=== PATIENT | female | born 1955 | race Caucasian/White ===

== ENCOUNTER → 2016-09-14 | Outpatient (CLI) | payer OTHER ==
[2016-09-14 12:04] LABS: HEMATOCRIT 34.3 % (36.0-47.0); HEMOGLOBIN 11.6 g/dL (12.0-15.5); HGB HCT DIFFERENCE 0.5; MEAN CORPUSCULAR HGB CONC 33.8 g/dL (32.0-36.0); MEAN CORPUSCULAR VOLUME 89 fl (80-97); RED BLOOD COUNT 3.86 10^6/uL (3.72-5.28); RED CELL DISTRIBUTION WIDTH 13.7 % (11.5-14.0); WHITE BLOOD COUNT 4.9 10^3/uL (4.0-10.5)
[2016-09-14 12:40] LABS: ANION GAP 13 (5-19); BLOOD UREA NITROGEN 40 mg/dL (7-20); CALCIUM 9.3 mg/dL (8.4-10.2); CARBON DIOXIDE 26 mmol/L (22-30); CHLORIDE 100 mmol/L (98-107); CREATININE RESULT 1.25 mg/dL (0.52-1.25); GLUCOSE 89 mg/dL (75-110); MAGNESIUM 1.6 mg/dL (1.6-2.3); POTASSIUM 4.3 mmol/L (3.6-5.0)
== END ==
LOC: OD 10:52
PROVIDERS: ATTEND Internal Medicine Nephrology
DX: I12.9 Hypertensive chronic kidney disease with stage 1 through stage 4 chronic kidney disease, or unspecified chronic kidney disease (principal); N18.3 Chronic kidney disease, stage 3 (moderate); I50.9 Heart failure, unspecified; E87.5 Hyperkalemia; D64.9 Anemia, unspecified
CPT/HCPCS: 36415; 80048; 83735; 85027

== ENCOUNTER → 2016-11-30 | Outpatient (CLI) | payer OTHER ==
[2016-11-30 14:37] LABS: HEMOGLOBIN 11.6 g/dL (12.0-15.5); HGB HCT DIFFERENCE -0.2; MEAN CORPUSCULAR HEMOGLOBIN 30.3 pg (27.0-33.4); MEAN CORPUSCULAR HGB CONC 33.2 g/dL (32.0-36.0); MEAN CORPUSCULAR VOLUME 91 fl (80-97); RED BLOOD COUNT 3.84 10^6/uL (3.72-5.28); RED CELL DISTRIBUTION WIDTH 13.8 % (11.5-14.0); WHITE BLOOD COUNT 5.4 10^3/uL (4.0-10.5)
[2016-11-30 14:59] LABS: ANION GAP 8 (5-19); BLOOD UREA NITROGEN 29 mg/dL (7-20); CALCIUM 9.4 mg/dL (8.4-10.2); CARBON DIOXIDE 28 mmol/L (22-30); CHLORIDE 105 mmol/L (98-107); CREATININE RESULT 1.03 mg/dL (0.52-1.25); GLUCOSE 95 mg/dL (75-110); MAGNESIUM 1.9 mg/dL (1.6-2.3); SODIUM 141.3 mmol/L (137-145)
== END ==
LOC: OD 13:30
PROVIDERS: ATTEND Internal Medicine Nephrology
DX: I12.9 Hypertensive chronic kidney disease with stage 1 through stage 4 chronic kidney disease, or unspecified chronic kidney disease (principal); N18.3 Chronic kidney disease, stage 3 (moderate); E87.5 Hyperkalemia; D64.9 Anemia, unspecified
CPT/HCPCS: 36415; 80048; 83735; 85027

== ENCOUNTER → 2016-12-06 | Outpatient (CLI) | payer OTHER ==
--- NOTE | 2016-12-06 17:14 | XCELERA REPORT ---
[address] [address] Lower Extremity Venous Evaluation Name: LEATHA ATKINS Age: 61 yrs Gender: Female : 1955 Patient Status: Outpatient Patient Location: Study Date: 12/06/2016 03:31 PM Procedure: Color flow and duplex imaging of the veins of the left lower extremity as well as the right Common Femoral vein. Reason For Study: LLE SWELLING Ordering Physician: Dheeraj CALDERON Performed By: Ana Ayoub Right Sided Venous Evaluation The right common femoral vein is fully compressible. Spontaneous and phasic flow is present in the right common femoral vein. Left Sided Venous Evaluation Normal vessel filling wall to wall, compression and augmentation as well as Colour flow down to the infrageniculate veins. Subcutaneous edema noted. Critical Findings Called in to Dr Calderon, about 1600. Interpretation Summary No duplex evidence of DVT or obstruction in the left lower extremity nor in the right Common Femoral vein. : Dheeraj CALDERON > Jorje Butler
== END ==
LOC: SP 15:26
PROVIDERS: ATTEND Internal Medicine Nephrology
DX: R22.42 Localized swelling, mass and lump, left lower limb (principal)
CPT/HCPCS: 93971

== ENCOUNTER 2016-12-25 15:49 | Inpatient (IN) | payer OTHER ==
--- NOTE | 2016-12-25 16:41 | RADIOLOGY REPORT (SQ) ---
EXAM DESCRIPTION: CT HEAD WITHOUT COMPLETED DATE/TIME: 12/25/2016 4:26 pm REASON FOR STUDY: leg weakness COMPARISON: February 2016 TECHNIQUE: Axial images acquired through the brain without intravenous contrast. Images reviewed wi th bone, brain and subdural windows. Images stored on PACS. All CT scanners at this facility use dose modulation, iterative reconstruction, and/or weight based d osing when appropriate to reduce radiation dose to as low as reasonably achievable (ALARA). [facility]: Dose Right [facility]: CareDose [facility]: Dose Right [facility]: Teradose 4D [facility]: Spoonity RADIATION DOSE: 127.62 mGy. LIMITATIONS: None. FINDINGS: VENTRICLES: Prominent. CEREBRUM: No masses. No hemorrhage. No midline shift. Areas of low density in the white matter mos t likely due to chronic micro-vascular ischemic change. No evidence for acute infarction. CEREBELLUM: No masses. No hemorrhage. No alteration of density. No evidence for acute infarction. EXTRAAXIAL SPACES: Mild age-related involutional change. No fluid collections. No masses. ORBITS AND GLOBE: No intra- or extraconal masses. Normal contour of globe without masses. CALVARIUM: No fracture. PARANASAL SINUSES: No fluid or mucosal thickening. SOFT TISSUES: No mass or hematoma. OTHER: No other significant finding. IMPRESSION: MILD CHRONIC CHANGES OF ATROPHY AND MICROVASCULAR ISCHEMIA. NO ACUTE PROCESS. TECHNICAL DOCUMENTATION: JOB ID: [id number] Quality ID # [id number]: Final reports with documentation of one or more dose reduction techniques (e.g., Au tomated exposure control, adjustment of the mA and/or kV according to patient size, use of iterative reconstruction technique) 2010 [employer]- All Rights Reserved
--- NOTE | 2016-12-25 16:59 | ER Document Report ---
ED General - General Mode of Arrival: Ambulatory Information source: Patient TRAVEL OUTSIDE OF THE [place] IN LAST 30 DAYS: No - HPI Onset: Other <RIN PETIT - Last Filed: 12/25/16 19:04> <WILLI PETERSEN - Last Filed: 12/25/16 23:10> - General Chief Complaint: Weakness Stated Complaint: LEG PAIN Time Seen by Provider: 12/25/16 16:03 Notes: Patient is a 61-year-old female who presents to the emergency department today with complaints of right-sided weakness. Patient states that her thinks "something has not been right" over the last few days. Patient states she did fall yesterday onto carpet/tile but denies any injuries from the fall. Patient states she has not been urinating as much as she normally would over the last few days. Patient states she is not on dialysis but she is followed by Dr. Calderon. (RIN PETIT) - Related Data Allergies/Adverse Reactions: pregabalin [From Lyrica] Allergy (Unknown, Verified 12/15/15 13:14) trazodone HCl [From Desyrel] Allergy (Unknown, Verified 12/15/15 13:14) cephalexin monohydrate [From Keflex] Adverse Reaction (Verified 12/15/15 13:14) nausea, vomiting erythromycin base [Erythromycin Base] Adverse Reaction (Verified 12/15/15 13:14) nausea, vomiting Home Medications: Current Home Medications Alprazolam [Xanax 0.5 mg Tablet] 0.5 mg PO Q8HP PRN 12/25/16 [History] Atorvastatin Calcium [Lipitor 20 mg Tablet] 20 mg PO DAILY 12/25/16 [History] Bumetanide [Bumex 2 mg Tablet] 2 mg PO Q12 12/25/16 [History] Cyclobenzaprine HCl [Flexeril 10 mg Tablet] 10 mg PO Q8HP PRN 12/25/16 [History] Dicyclomine HCl [Bentyl 10 mg Capsule] 10 mg PO MEALS PRN 12/25/16 [History] Donepezil HCl [Aricept] 10 mg PO DAILY 12/25/16 [History] Ergocalciferol (Vitamin D2) [Vitamin D2] 50,000 unit PO LUEVANO@1000 12/25/16 [ History] Eszopiclone [Lunesta] 4 mg PO QHS 12/25/16 [History] Fluoxetine HCl [Prozac] 80 mg PO DAILY 12/25/16 [History] Hydromorphone HCl [Dilaudid 2 mg Tablet] 2 mg PO Q4HP PRN 12/25/16 [History] Levocetirizine Dihydrochloride [Xyzal] 5 mg PO QHS 12/25/16 [History] Levothyroxine Sodium [Synthroid 0.025 mg Tablet] 0.025 mg PO DAILY 12/25/16 [ History] Levothyroxine Sodium [Synthroid] 200 mcg PO ACBRKFST 12/25/16 [History] Magnesium Oxide [Mag-Ox 400 mg Tablet] 400 mg PO DAILY 12/25/16 [History] Metolazone [Zaroxolyn 5 mg Tablet] 5 mg PO Q2DAYS 12/25/16 [History] Morphine Sulfate [Ms-Contin Sr 30 mg Tablet] 30 mg PO Q8 12/25/16 [History] Nystatin [Mycostatin Topical Powder 15 gm] 1 applic TOP BIDP PRN 12/25/16 [ History] Omeprazole 20 mg PO DAILY 12/25/16 [History] Oxycodone HCl/Acetaminophen [Endocet 10-325 mg Tablet] 1 tab PO Q8HP PRN [History] Pnv with Ca,No.72/Iron,Carb/FA [ Plus Iron Tablet] 1 tab PO DAILY [History] Potassium Chloride [K-Tab ER] 20 meq PO DAILY 12/25/16 [History] Primidone [Mysoline 50 mg Tablet] 50 mg PO TID 12/25/16 [History] Promethazine HCl [Phenergan 25 mg Tablet] 25 mg PO Q6HP PRN 12/25/16 [History] Ramipril [Altace 2.5 mg Capsule] 2.5 mg PO DAILY 12/25/16 [History] Ropinirole HCl [Requip 0.25 mg Tablet] 0.25 mg PO BID 12/25/16 [History] Tiotropium [place] [Spiriva Handihaler 5 Cap/Kit (18 Mcg/Cap)] 1 puff IH DAILY 12/25/16 [History] Past Medical History - General Information source: Patient - Social History Smoking Status: Former Smoker Chew tobacco use (# tins/day): No Frequency of alcohol use: None Drug Abuse: None Lives with: Family Family History: Reviewed & Not Pertinent - Past Medical History Cardiac Medical History: Reports: Hx Congestive Heart Failure, Hx Hypertension Pulmonary Medical History: Reports: Hx Asthma, Hx Bronchitis, Hx COPD, Hx Pneumonia Neurological Medical History: Reports: Hx Cerebrovascular Accident - 7 YEARS AGO HAS "MEMORY ISSUES" "STROKE X5 Endocrine Medical History: Reports: Hx Hypothyroidism Renal/ Medical History: Reports: Hx Renal Insufficiency Psychiatric Medical History: Reports: Hx Depression Past Surgical History: Reports: Hx Dilation and Curettage, Hx Hysterectomy, Hx Tubal Ligation - Immunizations Hx Diphtheria, Pertussis, Tetanus Vaccination: Yes <RIN PETIT - Last Filed: 12/25/16 19:04> Review of Systems - Review of Systems Constitutional: No symptoms reported EENT: No symptoms reported Cardiovascular: No symptoms reported Respiratory: No symptoms reported Gastrointestinal: No symptoms reported Genitourinary: denies: Frequency Female Genitourinary: No symptoms reported Musculoskeletal: No symptoms reported Skin: No symptoms reported Hematologic/Lymphatic: No symptoms reported Neurological/Psychological: See HPI, Weakness - complains of right sided weakness -: Yes All other systems reviewed and negative <RIN PETIT - Last Filed: 12/25/16 19:04> Physical Exam - Vital signs Interpretation: Normal - General General appearance: Other - Drowsy, fall asleep during history In distress: None - Respiratory Respiratory status: No respiratory distress Chest status: Nontender Breath sounds: Normal Chest palpation: Normal - Cardiovascular Rhythm: Regular - Abdominal Inspection: Normal Tenderness: Nontender - Extremities General upper extremity: Normal inspection, Normal ROM, Normal strength General lower extremity: Normal inspection, Edema - b/l, Normal ROM - Neurological Neuro grossly intact: Yes Cognition: Confused [place] Coma Scale Eye Opening: Spontaneous Meme Coma Scale Verbal: Confused - Dialysis Meme Coma Scale Motor: Obeys Commands Meme Coma Scale Total: 14 - Psychological Associated symptoms: Normal affect, Normal mood <WILLI PETERSEN - Last Filed: 12/25/16 23:10> - Vital signs Vitals: Temp Pulse Resp BP Pulse Ox 98.7 F 98 18 132/97 H 94 12/25/16 16:00 12/25/16 16:00 12/25/16 16:00 12/25/16 16:00 12/25/16 16:00 Course - Laboratory Result Diagrams: 12/25/16 17:15 12/25/16 17:15 - Consults Dr. Beltran Time consulted: 17:54 Consulted provider: will see as inpatient <RIN PETIT - Last Filed: 12/25/16 19:04> - Laboratory Result Diagrams: 12/25/16 17:15 12/25/16 17:15 <WILLI PETERSEN - Last Filed: 12/25/16 23:10> - Re-evaluation Re-evalutation: 12/25/16 Patient is a 61-year-old female who comes in because her was concerned about her mental status. Patient does have a urinary tract infection and initially was very drowsy and confused during a period patient was discussed with the hospitalist service and will be admitted for encephalopathy, UTI, and started on Levaquin. Stable at time of admission. (WILLI PETERSEN) - Vital Signs Vital signs: Temp Pulse Resp BP Pulse Ox 98.7 F 95 10 L 148/89 H 95 12/25/16 21:01 12/25/16 20:05 12/25/16 21:01 12/25/16 21:01 12/25/16 21:01 - Laboratory Laboratory results interpreted by me: 12/25/16 12/25/16 12/25/16 17:15 17:15 17:15 Hgb 11.3 L Hct 34.6 L VBG pH 7.29 L Potassium 5.1 H Chloride 110 H Albumin 3.4 L Urine Blood Ur Leukocyte Esterase 12/25/16 17:39 Hgb Hct VBG pH Potassium Chloride Albumin Urine Blood MODERATE H Ur Leukocyte Esterase MODERATE H - Consults Dr. Beltran Reason for consultation: 12/25/16 17:54 Agrees to admit patient (RIN PETIT) Discharge <RIN PETIT - Last Filed: 12/25/16 19:04> - Discharge Admitting Provider: Hospitalist - [facility] Unit Admitted: [facility] <WILLI PETERSEN - Last Filed: 12/25/16 23:10> - Discharge Clinical Impression: UTI (urinary tract infection) Qualifiers: Urinary tract infection type: site unspecified Hematuria presence: with hematuria Qualified Code(s): N39.0 - Urinary tract infection, site not specified ; R31.9 - Hematuria, unspecified Altered mental status Qualifiers: Altered mental status type: transient alteration of awareness Qualified Code(s) : R40.4 - Transient alteration of awareness Condition: Stable Disposition: ADMITTED INPATIENT Scribe Attestation: 12/25/16 23:10 I personally performed the services described in the documentation, reviewed and edited the documentation which was dictated to the scribe in my presence, and it accurately records my words and actions. (WILLI PETERSEN) Scribe Documentation - Scribe Written by Scribe:: Yury Leslie, 12/25/2016 1903 acting as scribe for :: Crista <RIN PETIT - Last Filed: 12/25/16 19:04>
[2016-12-25 17:26] LABS: ABSOLUTE EOSINOPHILS # (AUTO) 0.2 10^3/uL (0.0-0.6); ABSOLUTE MONOCYTES (AUTO) 0.4 10^3/uL (0.1-1.4); ABSOLUTE NEUT (AUTO) 4.1 10^3/uL (1.7-8.2); BASOPHILS % (AUTO) 0.5 % (0-2); EOSINOPHILS % (AUTO) 3.8 % (0-6); HEMATOCRIT 34.6 % (36.0-47.0); HEMOGLOBIN 11.3 g/dL (12.0-15.5); HGB HCT DIFFERENCE -0.7; LYMPHOCYTES % (AUTO) 17.1 % (13-45); MEAN CORPUSCULAR HEMOGLOBIN 29.9 pg (27.0-33.4); MEAN CORPUSCULAR HGB CONC 32.8 g/dL (32.0-36.0); MEAN CORPUSCULAR VOLUME 91 fl (80-97); MONOCYTES % (AUTO) 7.6 % (3-13); RED BLOOD COUNT 3.79 10^6/uL (3.72-5.28); RED CELL DISTRIBUTION WIDTH 13.7 % (11.5-14.0); WHITE BLOOD COUNT 5.8 10^3/uL (4.0-10.5)
[2016-12-25 17:27] LABS: VENOUS BLOOD BASE EXCESS 0.3 mmol/L; VENOUS BLOOD HCO3 27.9 mmol/L (20-32); VENOUS BLOOD PH 7.29 (7.30-7.42)
[2016-12-25 17:47] LABS: ALANINE AMINOTRANSFERASE 21 U/L (9-52); ALBUMIN 3.4 g/dL (3.5-5.0); ALKALINE PHOSPHATASE 86 U/L (38-126); ANION GAP 5 (5-19); ASPARTATE AMINO TRANSFERASE 20 U/L (14-36); BILIRUBIN,DIRECT 0.3 mg/dL (0.0-0.4); BILIRUBIN,TOTAL 0.4 mg/dL (0.2-1.3); BLOOD UREA NITROGEN 13 mg/dL (7-20); CALCIUM 9.1 mg/dL (8.4-10.2); CARBON DIOXIDE 25 mmol/L (22-30); CHLORIDE 110 mmol/L (98-107); CREATINE KINASE 86 U/L (30-135); CREATININE RESULT 0.94 mg/dL (0.52-1.25); GLUCOSE 103 mg/dL (75-110); POTASSIUM 5.1 mmol/L (3.6-5.0); SODIUM 139.5 mmol/L (137-145); TOTAL PROTEIN 6.5 g/dL (6.3-8.2)
[2016-12-25 17:49] LABS: APPEARANCE,URINE SLIGHTLY-CLOUDY; BILIRUBIN,URINE NEGATIVE (NEGATIVE); GLUCOSE, URINE NEGATIVE (NEGATIVE); KETONES,URINE NEGATIVE (NEGATIVE); LEUKOCYTE ESTERASE,URINE MODERATE (NEGATIVE); NITRITE,URINE NEGATIVE (NEGATIVE); PROTEIN,URINE NEGATIVE (NEGATIVE); URINE SPECIFIC GRAVITY 1.016; UROBILINOGEN,URINE NEGATIVE mg/dL (<2.0)
[2016-12-25 17:59] LABS: TROPONIN I < 0.012 ng/mL
--- NOTE | 2016-12-25 18:00 | RADIOLOGY REPORT (SQ) ---
EXAM DESCRIPTION: CHEST SINGLE VIEW COMPLETED DATE/TIME: 12/25/2016 5:51 pm REASON FOR STUDY: AMS COMPARISON: 03/22/2016 EXAM PARAMETERS: NUMBER OF VIEWS: One view. TECHNIQUE: Single frontal radiographic view of the chest acquired. RADIATION DOSE: NA LIMITATIONS: None. FINDINGS: LUNGS AND PLEURA: There is residual airspace disease in the right upper lobe. This could represent residual pneumonia or scar. Neoplastic process cannot be excluded. MEDIASTINUM AND HILAR STRUCTURES: No masses. Contour normal. HEART AND VASCULAR STRUCTURES: Heart normal in size. Normal vasculature. BONES: No acute findings. HARDWARE: None in the chest. OTHER: No other significant finding. IMPRESSION: Residual airspace disease in the right upper lobe as described. TECHNICAL DOCUMENTATION: JOB ID: [id number]
[2016-12-25] MEDS ORDERED: ALBUTEROL SULFATE 0.083% NEB 2.5 MG/3 ML AMPUL NEB PRN (18:26)
[2016-12-25] MEDS ORDERED: ACETAMINOPHEN 325 MG TABLET PO PRN (18:26)
[2016-12-25] MEDS ORDERED: ONDANSETRON HCL INJ/PF 4 MG/2 ML SDV IV PRN (18:26)
--- NOTE | 2016-12-25 18:44 | PDOC H&P ---
History of Present Illness Admission Date/PCP: 12/25/16 18:25 ELIUD KEY Patient complains of: Confusion History of Present Illness: LEATHA ATKINS is a 61 year old female with a history of COPD and chronic pain requiring chronic narcotics presents with an altered mental status. The patient has been having problems over the last week where she has become more confused. Her thought it was initially secondary to her pain medications. Patient was brought in and was found to have a urinary tract infection. The patient denies any fevers or chills. She denies any visual or hearing changes. She denies any cough she has had some dysuria and urinary hesitancy. She does complain of lower extremity edema and some orthopnea. Past Medical History Cardiac Medical History: Reports: Congestive Heart Failure - Chronic diastolic dysfunction, Hyperlipidema, Hypertension Denies: Coronary Artery Disease - HIGH CHOLESTEROL Pulmonary Medical History: Reports: Asthma, Bronchitis, Chronic Obstructive Pulmonary Disease (COPD), Pneumonia Denies: Tuberculosis Neurological Medical History: Reports: Ischemic CVA Denies: Seizures Endocrine Medical History: Reports: Hypothyroidism Renal/ Medical History: Reports: Chronic Kidney Disease GI Medical History: Reports: None Psychiatric Medical History: Reports: Depression Hematology: Denies: Anemia Infectious Medical History: Reports: None Past Surgical History Past Surgical History: Reports: Hysterectomy, Tubal Ligation Social History Information Source: Patient Lives with: Spouse/Significant other Smoking Status: Former Smoker Frequency of Alcohol Use: None Hx Recreational Drug Use: No Drugs: None Hx Prescription Drug Abuse: No - Advance Directive Resuscitation Status: Full Code Surrogate healthcare decision maker:: Family History Family History: Mother at age 74 and had COPD as well as polycythemia vera. Father at age 83 and had diabetes mellitus. Parental Family History Reviewed: Yes Children Family History Reviewed: No Sibling(s) Family History Reviewed.: No Medication/Allergy Home Medications: Fluoxetine HCl [Prozac 20 mg Capsule] 40 mg PO DAILY 12/01/12 Levothyroxine Sodium [Synthroid] 200 mcg PO QAM 12/01/12 Potassium Chloride [Klor-Con] 20 meq PO DAILY 12/01/12 Ramipril [Altace 2.5 mg Capsule] 2.5 mg PO QHS 12/01/12 Ropinirole HCl [Requip 0.25 mg Tablet] 0.5 mg PO QPM 12/01/12 Tiotropium [place] [Spiriva Handihaler 18 mcg/dose (30 Dose)] 1 cap IH DAILY Fondaparinux Sodium [Arixtra Inj 7.5 mg/0.6 ml Disp. Syrin] 7.5 mg SUBCUT DAILY 02/06/13 Pnv with Ca,No.72/Iron,Carb/FA [ Plus Iron Tablet] 1 each PO DAILY 02/06 Bumetanide [Bumex 1 mg Tablet] 2 mg PO BID 02/28/16 Levocetirizine Dihydrochloride [Xyzal 5 mg Tablet] 5 mg PO QAM 02/28/16 Metolazone 5 mg PO BID 02/28/16 Simvastatin 40 mg PO QHS 02/28/16 Albuterol Sulfate [Albuterol Sulfate 2.5mg/3 mL] 1 vial IH Q4 PRN #30 vial 03/03 Nystatin [Mycostatin Topical Powder 15 gm] 1 applic TP BID #1 bottle 03/08/16 Cholecalciferol (Vitamin D3) [Decara] 50,000 unit PO [id number] 03/19/16 Primidone [Mysoline] 50 mg PO TID 03/19/16 Alprazolam [Xanax 0.5 mg Tablet] 0.5 mg PO Q6HP PRN #40 tablet 03/22/16 Doxycycline Hyclate [Vibramycin 100 mg Tablet] 100 mg PO Q12 #10 tablet Eszopiclone [Lunesta] 4 mg PO QHS #30 03/22/16 Fluconazole [Diflucan 100 mg Tablet] 200 mg PO Q48H #10 tablet 03/22/16 Memantine HCl [Namenda 10 mg Tablet] 10 mg PO DAILY #30 tablet 03/22/16 Nystatin [Mycostatin 500,000 Unit/5 ml Susp Udcup] 500,000 unit PO QID #200 udc 03/22/16 Oxycodone HCl [Oxycodone HCl 10 MG Tablet] 10 mg PO Q4HP PRN #30 tablet Oxycodone HCl [Oxycontin] 60 mg PO Q8 #30 tab.er.12h 03/22/16 Prednisone [Deltasone 20 mg Tablet] 20 mg PO DAILY #10 tablet 09/01/16 Allergies/Adverse Reactions: pregabalin [From Lyrica] Allergy (Unknown, Verified 12/15/15 13:14) trazodone HCl [From Desyrel] Allergy (Unknown, Verified 12/15/15 13:14) cephalexin monohydrate [From Keflex] Adverse Reaction (Verified 12/15/15 13:14) nausea, vomiting erythromycin base [Erythromycin Base] Adverse Reaction (Verified 12/15/15 13:14) nausea, vomiting Review of Systems Constitutional: PRESENT: weight gain. ABSENT: chills, fever(s), headache(s) Eyes: ABSENT: visual disturbances Ears: ABSENT: hearing changes Cardiovascular: PRESENT: dyspnea on exertion, edema, orthropnea. ABSENT: chest pain, palpitations Respiratory: PRESENT: dyspnea Gastrointestinal: ABSENT: abdominal pain, constipation, diarrhea, hematemesis, hematochezia, nausea, vomiting Genitourinary: PRESENT: dysuria. ABSENT: hematuria Musculoskeletal: PRESENT: back pain Integumentary: ABSENT: rash, wounds Neurological: PRESENT: confusion, weakness. ABSENT: focal weakness, syncope Psychiatric: PRESENT: depression Endocrine: ABSENT: cold intolerance, heat intolerance, polydipsia, polyuria Hematologic/Lymphatic: ABSENT: easy bleeding, easy bruising Physical Exam Vital Signs: Temp Pulse Resp BP Pulse Ox 97.7 F 79 16 134/78 H 99 12/25/16 17:52 12/25/16 17:52 12/25/16 17:52 12/25/16 17:52 12/25/16 17:52 General appearance: PRESENT: no acute distress, morbidly obese Head exam: PRESENT: atraumatic, normocephalic Eye exam: PRESENT: conjunctiva pink, EOMI, PERRLA. ABSENT: scleral icterus Ear exam: PRESENT: normal external ear exam Mouth exam: PRESENT: moist, tongue midline Neck exam: ABSENT: carotid bruit, JVD, lymphadenopathy, thyromegaly Respiratory exam: PRESENT: clear to auscultation allison. ABSENT: rales, rhonchi, wheezes Cardiovascular exam: PRESENT: RRR. ABSENT: diastolic murmur, rubs, systolic murmur Vascular exam: PRESENT: normal capillary refill GI/Abdominal exam: PRESENT: normal bowel sounds, soft. ABSENT: distended, guarding, mass, organolmegaly, rebound, tenderness Rectal exam: PRESENT: deferred Extremities exam: PRESENT: pedal edema, +2 edema. ABSENT: calf tenderness, clubbing Neurological exam: PRESENT: altered, awake, oriented to person, oriented to place, CN II-XII grossly intact. ABSENT: oriented to time, oriented to situation, motor sensory deficit Psychiatric exam: PRESENT: anxious Skin exam: PRESENT: dry, intact, warm. ABSENT: cyanosis, rash Results Impressions: Chest X-Ray 12/25/16 00:00 IMPRESSION: Residual airspace disease in the right upper lobe as described. Head CT 12/25/16 16:07 IMPRESSION: MILD CHRONIC CHANGES OF ATROPHY AND MICROVASCULAR ISCHEMIA. NO ACUTE PROCESS. Assessment & Plan - Diagnosis (1) Encephalopathy Is this a current diagnosis for this admission?: YesPlan: Most likely is secondary to the underlying urinary tract infection. She does use narcotics as well as benzodiazepines which may be contributing somewhat to this. She has gotten confused in the past when she gets infections. (2) UTI (urinary tract infection) Is this a current diagnosis for this admission?: YesPlan: The patient has a urinary tract infection.Will check cultures and start on Levaquin. (3) Chronic renal failure Is this a current diagnosis for this admission?: YesPlan: Patient is followed by Dr. Calderon. She has had worsening fluid retention along with some symptoms of volume overload. We will give IV Lasix. Will place a Rodriguez catheter so we can monitor I's and O's closely. (4) Congestive heart failure Is this a current diagnosis for this admission?: YesPlan: Has acute on chronic diastolic congestive heart failure. Will give IV Lasix as above. Has been on metolazone and we will continue with that. (5) Hypertension Is this a current diagnosis for this admission?: Yes (6) Hyperlipidemia Is this a current diagnosis for this admission?: Yes (7) Hypothyroidism Is this a current diagnosis for this admission?: YesPlan: Continue with the Synthroid. (8) COPD exacerbation Is this a current diagnosis for this admission?: YesPlan: Does not have any wheezing at this time. We will continue with nebulizers as needed. - Time Time Spent: 50 to 70 Minutes - Inpatient Certification Medical Necessity: Need Close Monitoring Due to Risk of Patient Decompensation, Need for IV Antibiotics - Plan Summary Plan Summary: Because of the patient's need for IV Lasix for treatment of her congestive heart failure and IV antibiotics for treatment of her UTI and encephalopathy she will require greater than 2 midnight hospital stay.
[2016-12-25] MEDS ORDERED: LEVOFLOXACIN 750 MG/D5W RTU 750 MG/150 ML RTUPB IV SCH (19:00)
[2016-12-25] MEDS: FAMOTIDINE 20 MG TABLET PO SCH (20:15)
[2016-12-25] MEDS: ONDANSETRON 4 MG TAB.RAPDIS PO PRN (20:15)
[2016-12-25] MEDS: FUROSEMIDE INJ/PF 20 MG/2 ML SDV IV SCH (20:15)
[2016-12-25] MEDS ORDERED: OXYCODONE HCL IR 5 MG TABLET PO PRN (21:08)
[2016-12-25] MEDS ORDERED: MORPHINE SULFATE SR 15 MG TABLET PO SCH (22:00)
[2016-12-26] MEDS: OXYCODONE HCL IR 5 MG TABLET PO PRN ×3 (01:12→18:52)
[2016-12-26 04:57] LABS: HEMATOCRIT 33.2 % (36.0-47.0); HGB HCT DIFFERENCE -0.2; MEAN CORPUSCULAR HEMOGLOBIN 30.1 pg (27.0-33.4); MEAN CORPUSCULAR HGB CONC 33.1 g/dL (32.0-36.0); MEAN CORPUSCULAR VOLUME 91 fl (80-97); RED BLOOD COUNT 3.66 10^6/uL (3.72-5.28); RED CELL DISTRIBUTION WIDTH 13.7 % (11.5-14.0); WHITE BLOOD COUNT 5.5 10^3/uL (4.0-10.5)
[2016-12-26 05:26] LABS: BLOOD UREA NITROGEN 12 mg/dL (7-20); CALCIUM 9.1 mg/dL (8.4-10.2); CARBON DIOXIDE 28 mmol/L (22-30); CHLORIDE 106 mmol/L (98-107); CREATININE RESULT 0.96 mg/dL (0.52-1.25); GLUCOSE 107 mg/dL (75-110); POTASSIUM 4.9 mmol/L (3.6-5.0); SODIUM 137.4 mmol/L (137-145)
[2016-12-26 05:31] LABS: ANION GAP 3 (5-19)
[2016-12-26] MEDS: ENOXAPARIN SODIUM INJ 40 MG/0.4 ML DISP.SYRIN SUBCUT SCH (07:55)
[2016-12-26] MEDS ORDERED: ALPRAZOLAM 0.5 MG TABLET PO SCH (09:15)
[2016-12-26] MEDS: FAMOTIDINE 20 MG TABLET PO SCH ×2 (09:43→21:55)
[2016-12-26] MEDS: METOLAZONE 5 MG TABLET PO SCH ×2 (09:43→18:51)
[2016-12-26] MEDS: FUROSEMIDE INJ/PF 20 MG/2 ML SDV IV SCH (09:44)
[2016-12-26] MEDS ORDERED: MORPHINE SULFATE SR 15 MG TABLET PO SCH (10:00)
--- NOTE | 2016-12-26 13:53 | PDOC PROGRESS REPORT ---
Subjective Progress Note for:: 12/26/16 Subjective:: Plus confused today. She complains of left lower back and left sciatica pain. Physical Exam Vital Signs: Temp Pulse Resp BP Pulse Ox 97.4 F 91 16 125/68 99 12/26/16 07:56 12/26/16 13:30 12/26/16 13:30 12/26/16 07:56 12/26/16 07:56 Intake & Output 12/25/16 12/26/16 12/27/16 06:59 06:59 06:59 Intake Total 10 Output Total 1750 Balance -1740 Weight 113.3 kg General appearance: PRESENT: no acute distress Eye exam: PRESENT: conjunctiva pink. ABSENT: scleral icterus Ear exam: PRESENT: normal external ear exam Neck exam: ABSENT: carotid bruit, JVD, lymphadenopathy, thyromegaly Respiratory exam: PRESENT: clear to auscultation allison. ABSENT: rales, rhonchi, wheezes Cardiovascular exam: PRESENT: RRR. ABSENT: diastolic murmur, rubs, systolic murmur GI/Abdominal exam: PRESENT: normal bowel sounds, soft. ABSENT: distended, guarding, mass, organolmegaly, rebound, tenderness Extremities exam: PRESENT: pedal edema, +1 edema. ABSENT: calf tenderness, clubbing Neurological exam: PRESENT: alert, awake, oriented to person, oriented to place , oriented to time, oriented to situation, CN II-XII grossly intact. ABSENT: motor sensory deficit Psychiatric exam: PRESENT: appropriate affect Skin exam: PRESENT: dry, intact, warm. ABSENT: cyanosis, rash Results Laboratory Results: 12/26/16 04:42 12/26/16 04:42 12/26/16 12/26/16 04:42 04:42 WBC 5.5 RBC 3.66 L Hgb 11.0 L Hct 33.2 L MCV 91 MCH 30.1 MCHC 33.1 RDW 13.7 Plt Count 196 Sodium 137.4 Potassium 4.9 Chloride 106 Carbon Dioxide 28 Anion Gap 3 L BUN 12 Creatinine 0.96 Est GFR ( Amer) > 60 Est GFR (Non-Af Amer) 59 L Glucose 107 Calcium 9.1 Impressions: Chest X-Ray 12/25/16 00:00 IMPRESSION: Residual airspace disease in the right upper lobe as described. Head CT 12/25/16 16:07 IMPRESSION: MILD CHRONIC CHANGES OF ATROPHY AND MICROVASCULAR ISCHEMIA. NO ACUTE PROCESS. Assessment & Plan - Diagnosis (1) Encephalopathy Is this a current diagnosis for this admission?: YesPlan: Most likely is secondary to the underlying urinary tract infection. She is much less confused today. She requests to go back on her pain medications and Xanax. (2) UTI (urinary tract infection) Qualifiers: Urinary tract infection type: site unspecified Hematuria presence: with hematuria Qualified Code(s): N39.0 - Urinary tract infection, site not specified Is this a current diagnosis for this admission?: YesPlan: The patient has a urinary tract infection.Will continue Levaquin. (3) Chronic renal failure Is this a current diagnosis for this admission?: YesPlan: Patient is followed by Dr. Calderon. Continue with IV Lasix. She has a Rodriguez so we can monitor I's and O's closely. (4) Congestive heart failure Is this a current diagnosis for this admission?: YesPlan: Has acute on chronic diastolic congestive heart failure. Will continue Lasix. Has been on metolazone and we will continue with that. (5) Hypertension Is this a current diagnosis for this admission?: Yes (6) Hyperlipidemia Is this a current diagnosis for this admission?: Yes (7) Hypothyroidism Is this a current diagnosis for this admission?: YesPlan: Continue with the Synthroid. (8) COPD exacerbation Is this a current diagnosis for this admission?: YesPlan: Does not have any wheezing at this time. We will continue with nebulizers as needed. (9) Back pain Is this a current diagnosis for this admission?: YesPlan: We will start back on her MS Contin. (10) Anxiety Is this a current diagnosis for this admission?: YesPlan: restart Xanax as needed. - Time Time Spent with patient: 25-34 minutes - Inpatient Certification Medical Necessity: Need for IV Antibiotics
[2016-12-26] MEDS: ALPRAZOLAM 0.5 MG TABLET PO PRN ×2 (14:08→21:55)
[2016-12-26] MEDS: MORPHINE SULFATE SR 15 MG TABLET PO SCH (18:51)
[2016-12-26] MEDS: FUROSEMIDE INJ/PF 40 MG/4 ML SDV IV SCH (21:54)
[2016-12-26] MEDS: NYSTATIN TOPICAL POWDER 15 GM TP SCH (21:56)
[2016-12-26] MEDS ORDERED: LEVOFLOXACIN 750 MG TABLET PO SCH (22:00)
[2016-12-27] MEDS: MORPHINE SULFATE SR 15 MG TABLET PO SCH ×2 (01:31→09:35)
[2016-12-27 05:27] LABS: ABSOLUTE EOSINOPHILS # (AUTO) 0.3 10^3/uL (0.0-0.6); ABSOLUTE LYMPHOCYTES (AUTO) 1.5 10^3/uL (0.5-4.7); ABSOLUTE MONOCYTES (AUTO) 0.6 10^3/uL (0.1-1.4); ABSOLUTE NEUT (AUTO) 2.7 10^3/uL (1.7-8.2); BASOPHILS % (AUTO) 0.8 % (0-2); EOSINOPHILS % (AUTO) 5.8 % (0-6); HEMATOCRIT 31.7 % (36.0-47.0); HEMOGLOBIN 10.6 g/dL (12.0-15.5); HGB HCT DIFFERENCE 0.1; LYMPHOCYTES % (AUTO) 28.9 % (13-45); MEAN CORPUSCULAR HGB CONC 33.5 g/dL (32.0-36.0); MEAN CORPUSCULAR VOLUME 90 fl (80-97); MONOCYTES % (AUTO) 11.2 % (3-13); RED BLOOD COUNT 3.54 10^6/uL (3.72-5.28); RED CELL DISTRIBUTION WIDTH 13.6 % (11.5-14.0); SEGMENTED NEUTROPHILS % (AUTO) 53.3 % (42-78)
[2016-12-27 05:41] LABS: ANION GAP 7 (5-19); BLOOD UREA NITROGEN 13 mg/dL (7-20); CALCIUM 9.1 mg/dL (8.4-10.2); CARBON DIOXIDE 30 mmol/L (22-30); CHLORIDE 101 mmol/L (98-107); CREATININE RESULT 1.17 mg/dL (0.52-1.25); GLUCOSE 92 mg/dL (75-110); POTASSIUM 4.6 mmol/L (3.6-5.0); SODIUM 137.6 mmol/L (137-145)
--- NOTE | 2016-12-27 06:16 | Physician Advisory Note ---
Physician Advisor ProgressNote .: Pursuant to the plan for [facility], I have reviewed the medical record for this patient. Physician Advisor Statement: Please consider documentin. "obesity w/BMI 43.5" 2. "chronic opioid/benzo dependence" Thanks! CK
[2016-12-27] MEDS: ENOXAPARIN SODIUM INJ 40 MG/0.4 ML DISP.SYRIN SUBCUT SCH (08:34)
[2016-12-27] MEDS: ALPRAZOLAM 0.5 MG TABLET PO PRN ×2 (08:34→13:08)
[2016-12-27] MEDS: ONDANSETRON 4 MG TAB.RAPDIS PO PRN (08:34)
[2016-12-27] MEDS: OXYCODONE HCL IR 5 MG TABLET PO PRN (08:34)
[2016-12-27] MEDS: LACTULOSE SYRUP 20 GM/30 ML UDCUP PO SCH ×2 (09:34→14:26)
[2016-12-27] MEDS: FUROSEMIDE INJ/PF 40 MG/4 ML SDV IV SCH (09:34)
[2016-12-27] MEDS: METOLAZONE 5 MG TABLET PO SCH (09:35)
[2016-12-27] MEDS: FAMOTIDINE 20 MG TABLET PO SCH (09:35)
[2016-12-27] MEDS: NYSTATIN TOPICAL POWDER 15 GM TP SCH (09:39)
--- NOTE | 2016-12-27 10:47 | PDOC DISCHARGE SUMMARY ---
General - Admit/Disc Date/PCP Admission Date/Primary Care Provider: 12/25/16 18:26 ELIUD KEY Discharge Date: 12/27/16 - Discharge Diagnosis (1) Encephalopathy Is this a current diagnosis for this admission?: YesSummary: Secondary to a urinary tract infection. Encephalopathy has resolved. (2) UTI (urinary tract infection) Is this a current diagnosis for this admission?: YesSummary: Cultures are negative up to date. (3) Chronic renal failure Is this a current diagnosis for this admission?: YesSummary: Stable (4) Congestive heart failure Is this a current diagnosis for this admission?: YesSummary: Acute on chronic diastolic congestive heart failure treated with IV Lasix while hospitalized. (5) Hypertension Is this a current diagnosis for this admission?: Yes (6) Hyperlipidemia Is this a current diagnosis for this admission?: Yes (7) Hypothyroidism Is this a current diagnosis for this admission?: Yes (8) COPD exacerbation Is this a current diagnosis for this admission?: Yes (9) Back pain Is this a current diagnosis for this admission?: Yes (10) Anxiety Is this a current diagnosis for this admission?: Yes (11) Morbid obesity Is this a current diagnosis for this admission?: Yes (12) Opioid dependence Is this a current diagnosis for this admission?: Yes (13) Benzodiazepine dependence Is this a current diagnosis for this admission?: Yes - Additional Information Resuscitation Status: Full Code Discharge Diet: Cardiac Discharge Activity: Activity As Tolerated Home Medications: Alprazolam [Xanax 0.5 mg Tablet] 0.5 mg PO Q8HP PRN 12/25/16 Atorvastatin Calcium [Lipitor 20 mg Tablet] 20 mg PO DAILY 12/25/16 Cyclobenzaprine HCl [Flexeril 10 mg Tablet] 10 mg PO Q8HP PRN 12/25/16 Dicyclomine HCl [Bentyl 10 mg Capsule] 10 mg PO MEALS PRN 12/25/16 Donepezil HCl [Aricept] 10 mg PO DAILY 12/25/16 Ergocalciferol (Vitamin D2) [Vitamin D2] 50,000 unit PO [id number] 12/25/16 Eszopiclone [Lunesta] 4 mg PO QHS 12/25/16 Fluoxetine HCl [Prozac] 80 mg PO DAILY 12/25/16 Hydromorphone HCl [Dilaudid 2 mg Tablet] 2 mg PO Q4HP PRN MDD 6 TABS/DAY Levocetirizine Dihydrochloride [Xyzal] 5 mg PO QHS 12/25/16 Levothyroxine Sodium [Synthroid 0.025 mg Tablet] 0.025 mg PO DAILY 12/25/16 Levothyroxine Sodium [Synthroid] 200 mcg PO DAILY 12/25/16 Magnesium Oxide [Mag-Ox 400 mg Tablet] 400 mg PO DAILY 12/25/16 Metolazone [Zaroxolyn 5 mg Tablet] 5 mg PO Q2DAYS 12/25/16 Morphine Sulfate [Ms-Contin Sr 30 mg Tablet] 30 mg PO Q8 12/25/16 Nystatin [Mycostatin Topical Powder 15 gm] 1 applic TOP BIDP PRN 12/25/16 Omeprazole 20 mg PO DAILY 12/25/16 Pnv with Ca,No.72/Iron,Carb/FA [ Plus Iron Tablet] 1 tab PO DAILY Potassium Chloride [K-Tab ER] 20 meq PO DAILY 12/25/16 Primidone [Mysoline 50 mg Tablet] 50 mg PO TID 12/25/16 Promethazine HCl [Phenergan 25 mg Tablet] 25 mg PO Q6HP PRN 12/25/16 Ramipril [Altace 2.5 mg Capsule] 2.5 mg PO QHS 12/25/16 Ropinirole HCl [Requip 0.25 mg Tablet] 0.25 mg PO BID 12/25/16 Albuterol Sulfate [Albuterol Sulfate 2.5mg/3 mL] 1 vial IH RTQ4HP PRN 12/26/16 Albuterol Sulfate [Proair HFA] 2 puff IH Q6HP PRN 12/26/16 Bumetanide [Bumex 1 mg Tablet] 1 mg PO DAILY@1400 12/26/16 Bumetanide [Bumex 1 mg Tablet] 2 mg PO QAM 12/26/16 Fondaparinux Sodium [Arixtra] 7.5 mg SQ DAILY 12/26/16 Lactulose [Cephulac Syrup 20 gm/30 ml Udcup] 20 gm PO Q4 PRN #20 oz 12/27/16 Levofloxacin [Levaquin 750 mg Tablet] 750 mg PO QHS #5 tablet 12/27/16 History of Present Illness History of Present Illness: LEATHA ATKINS is a 61 year old female with a history of COPD and chronic pain requiring chronic narcotics presents with an altered mental status. The patient has been having problems over the last week where she has become more confused. Her thought it was initially secondary to her pain medications. Patient was brought in and was found to have a urinary tract infection. The patient denies any fevers or chills. She denies any visual or hearing changes. She denies any cough she has had some dysuria and urinary hesitancy. She does complain of lower extremity edema and some orthopnea. Hospital Course Hospital Course: 61-year-old female who presented with confusion secondary to metabolic encephalopathy. Patient was found to have a urinary tract infection as a cause. Patient was started on antibiotics empirically and her urine culture has been negative so far. The patient also has been on chronic narcotics and benzodiazepines. The dose was decreased on both of these and she had improvement in her mental status. The patient also was noted to have some mild acute on chronic diastolic congestive heart failure. She was started on IV Lasix and had diuresis. The patient still had significant lower extremity edema but her respiratory status was improved. It was felt that she could be transitioned back over to oral Lasix and oral antibiotics and discharged home. Patient is very weak and we will consult home health for home physical therapy. I have suggested to the patient that she would benefit from assisted living but she and her are not interested in that at this time. Physical Exam Vital Signs: Temp Pulse Resp BP Pulse Ox 98.3 F 86 18 123/64 99 12/27/16 08:39 12/27/16 08:39 12/27/16 08:39 12/27/16 08:39 12/27/16 08:39 Intake & Output 12/26/16 12/27/16 12/28/16 06:59 06:59 06:59 Intake Total 10 1325 Output Total 1750 4540 Balance -4394 -8693 Weight 113.3 kg 115 kg General appearance: PRESENT: no acute distress Eye exam: PRESENT: conjunctiva pink. ABSENT: scleral icterus Ear exam: PRESENT: normal external ear exam Mouth exam: PRESENT: moist, tongue midline Neck exam: ABSENT: JVD Respiratory exam: PRESENT: clear to auscultation allison. ABSENT: rales, rhonchi, wheezes Cardiovascular exam: PRESENT: RRR. ABSENT: diastolic murmur, rubs, systolic murmur GI/Abdominal exam: PRESENT: normal bowel sounds, soft. ABSENT: distended, guarding, mass, organolmegaly, rebound, tenderness Extremities exam: PRESENT: pedal edema, +1 edema. ABSENT: calf tenderness, clubbing Neurological exam: PRESENT: alert, awake, oriented to person, oriented to place , oriented to time, oriented to situation, CN II-XII grossly intact. ABSENT: motor sensory deficit Psychiatric exam: PRESENT: appropriate affect Skin exam: PRESENT: dry, intact, warm. ABSENT: cyanosis, rash Results Laboratory Results: 12/27/16 05:07 12/27/16 05:07 12/27/16 12/27/16 05:07 05:07 WBC 5.0 RBC 3.54 L Hgb 10.6 L Hct 31.7 L MCV 90 MCH 30.0 MCHC 33.5 RDW 13.6 Plt Count 176 Seg Neutrophils % 53.3 Lymphocytes % 28.9 Monocytes % 11.2 Eosinophils % 5.8 Basophils % 0.8 Absolute Neutrophils 2.7 Absolute Lymphocytes 1.5 Absolute Monocytes 0.6 Absolute Eosinophils 0.3 Absolute Basophils 0.0 Sodium 137.6 Potassium 4.6 Chloride 101 Carbon Dioxide 30 Anion Gap 7 BUN 13 Creatinine 1.17 Est GFR ( Amer) 57 L Est GFR (Non-Af Amer) 47 L Glucose 92 Calcium 9.1 Impressions: Chest X-Ray 12/25/16 00:00 IMPRESSION: Residual airspace disease in the right upper lobe as described. Head CT 12/25/16 16:07 IMPRESSION: MILD CHRONIC CHANGES OF ATROPHY AND MICROVASCULAR ISCHEMIA. NO ACUTE PROCESS. Qualifiers PATEINT BEING DISCHARGED WITH ANY OF THE FOLLOWING DIAGNOSIS?: Heart Failure Plan Discharge Plan: Patient is discharged home in stable condition. Will follow up primary care in 2 weeks Time Spent: Greater than 30 Minutes
[2016-12-27 16:23] VITALS: BP 126/64
== END 2016-12-27 16:30 | disposition home health service (06) | DRG 71 ==
LOC: ER 15:49 → EH 18:25 → UNDOADMIN 18:25 → EH 18:26 → 3W 23:41
PROVIDERS: ADMIT Internal Medicine; ATTEND Internal Medicine
DX: G93.49 Other encephalopathy (principal); N39.0 Urinary tract infection, site not specified; J44.1 Chronic obstructive pulmonary disease with (acute) exacerbation; I50.32 Chronic diastolic (congestive) heart failure; Z68.41 Body mass index [BMI] 40.0-44.9, adult; F11.20 Opioid dependence, uncomplicated; F13.20 Sedative, hypnotic or anxiolytic dependence, uncomplicated; E78.5 Hyperlipidemia, unspecified; Z90.710 Acquired absence of both cervix and uterus; I12.9 Hypertensive chronic kidney disease with stage 1 through stage 4 chronic kidney disease, or unspecified chronic kidney disease; N18.9 Chronic kidney disease, unspecified; F32.9 Major depressive disorder, single episode, unspecified; E03.9 Hypothyroidism, unspecified; E66.01 Morbid (severe) obesity due to excess calories; F41.9 Anxiety disorder, unspecified; M54.9 Dorsalgia, unspecified; Z87.891 Personal history of nicotine dependence; Z79.899 Other long term (current) drug therapy; Z88.8 Allergy status to other drugs, medicaments and biological substances
CPT/HCPCS: 36415; 70450; 71010; 80048; 80053; 81001; 82550; 82553; 82803; 84484; 85025; 85027; 87086; 94640; 99285; J1650; J1940; J1956; J2405; J3490; S0119

== ENCOUNTER → 2017-05-04 | Outpatient (CLI) | payer OTHER ==
[2017-05-04 11:07] LABS: HEMATOCRIT 33.1 % (36.0-47.0); HEMOGLOBIN 11.3 g/dL (12.0-15.5); HGB HCT DIFFERENCE 0.8; MEAN CORPUSCULAR HEMOGLOBIN 30.8 pg (27.0-33.4); MEAN CORPUSCULAR HGB CONC 34.1 g/dL (32.0-36.0); MEAN CORPUSCULAR VOLUME 90 fl (80-97); RED BLOOD COUNT 3.67 10^6/uL (3.72-5.28); RED CELL DISTRIBUTION WIDTH 14.5 % (11.5-14.0); WHITE BLOOD COUNT 3.9 10^3/uL (4.0-10.5)
[2017-05-04 11:14] LABS: APPEARANCE,URINE SLIGHTLY-CLOUDY; BILIRUBIN,URINE NEGATIVE (NEGATIVE); GLUCOSE, URINE NEGATIVE (NEGATIVE); KETONES,URINE NEGATIVE (NEGATIVE); LEUKOCYTE ESTERASE,URINE NEGATIVE (NEGATIVE); NITRITE,URINE NEGATIVE (NEGATIVE); PROTEIN,URINE NEGATIVE (NEGATIVE); URINE SPECIFIC GRAVITY 1.018; UROBILINOGEN,URINE NEGATIVE mg/dL (<2.0)
[2017-05-04 11:40] LABS: ALBUMIN 3.9 g/dL (3.5-5.0); ANION GAP 10 (5-19); BLOOD UREA NITROGEN 30 mg/dL (7-20); CALCIUM 9.2 mg/dL (8.4-10.2); CARBON DIOXIDE 29 mmol/L (22-30); CHLORIDE 103 mmol/L (98-107); CREATININE RESULT 1.23 mg/dL (0.52-1.25); GLUCOSE 88 mg/dL (75-110); SODIUM 141.7 mmol/L (137-145)
== END ==
LOC: OD 10:16
PROVIDERS: ATTEND Internal Medicine Nephrology
DX: N18.3 Chronic kidney disease, stage 3 (moderate) (principal); I50.9 Heart failure, unspecified; E87.5 Hyperkalemia; D64.9 Anemia, unspecified
CPT/HCPCS: 36415; 80048; 81001; 82040; 85027

== ENCOUNTER → 2017-06-21 | Outpatient (CLI) | payer OTHER ==
[2017-06-21 15:55] LABS: HEMATOCRIT 33.5 % (36.0-47.0); HEMOGLOBIN 11.3 g/dL (12.0-15.5); HGB HCT DIFFERENCE 0.4; MEAN CORPUSCULAR HGB CONC 33.7 g/dL (32.0-36.0); MEAN CORPUSCULAR VOLUME 92 fl (80-97); RED BLOOD COUNT 3.64 10^6/uL (3.72-5.28); RED CELL DISTRIBUTION WIDTH 13.5 % (11.5-14.0); WHITE BLOOD COUNT 4.7 10^3/uL (4.0-10.5)
[2017-06-21 16:18] LABS: ANION GAP 11 (5-19); BLOOD UREA NITROGEN 27 mg/dL (7-20); CALCIUM 8.8 mg/dL (8.4-10.2); CARBON DIOXIDE 25 mmol/L (22-30); CHLORIDE 105 mmol/L (98-107); CREATININE RESULT 1.19 mg/dL (0.52-1.25); GLUCOSE 94 mg/dL (75-110); POTASSIUM 4.9 mmol/L (3.6-5.0); SODIUM 141.2 mmol/L (137-145)
== END ==
LOC: OD 15:04
PROVIDERS: ATTEND Internal Medicine Nephrology
DX: I12.9 Hypertensive chronic kidney disease with stage 1 through stage 4 chronic kidney disease, or unspecified chronic kidney disease (principal); N18.3 Chronic kidney disease, stage 3 (moderate); E87.5 Hyperkalemia; D63.1 Anemia in chronic kidney disease
CPT/HCPCS: 36415; 80048; 83735; 85027

== ENCOUNTER → 2017-08-06 | Outpatient (CLI) | payer OTHER ==
[2017-08-06 16:53] LABS: HEMATOCRIT 34.4 % (36.0-47.0); HEMOGLOBIN 11.3 g/dL (12.0-15.5); MEAN CORPUSCULAR HEMOGLOBIN 30.1 pg (27.0-33.4); MEAN CORPUSCULAR VOLUME 91 fl (80-97); PLATELET COUNT 253 10^3/uL (150-450); RED BLOOD COUNT 3.77 10^6/uL (3.72-5.28); RED CELL DISTRIBUTION WIDTH 14.2 % (11.5-14.0); WHITE BLOOD COUNT 4.7 10^3/uL (4.0-10.5)
[2017-08-06 17:22] LABS: ANION GAP 9 (5-19); BLOOD UREA NITROGEN 32 mg/dL (7-20); CALCIUM 9.2 mg/dL (8.4-10.2); CARBON DIOXIDE 28 mmol/L (22-30); CHLORIDE 107 mmol/L (98-107); GLUCOSE 87 mg/dL (75-110); MAGNESIUM 1.9 mg/dL (1.6-2.3); POTASSIUM 4.7 mmol/L (3.6-5.0)
== END ==
LOC: OD 15:24
PROVIDERS: ATTEND Internal Medicine Nephrology
DX: N18.3 Chronic kidney disease, stage 3 (moderate) (principal); I50.9 Heart failure, unspecified; D64.9 Anemia, unspecified; E83.42 Hypomagnesemia
CPT/HCPCS: 36415; 80048; 83735; 85027

== ENCOUNTER → 2017-10-31 | Outpatient (CLI) | payer OTHER ==
[2017-10-31 18:46] LABS: HEMOGLOBIN 12.7 g/dL (12.0-15.5); MEAN CORPUSCULAR HEMOGLOBIN 30.1 pg (27.0-33.4); MEAN CORPUSCULAR HGB CONC 32.6 g/dL (32.0-36.0); MEAN CORPUSCULAR VOLUME 92 fl (80-97); PLATELET COUNT 238 10^3/uL (150-450); RED BLOOD COUNT 4.22 10^6/uL (3.72-5.28); RED CELL DISTRIBUTION WIDTH 15.2 % (11.5-14.0); WHITE BLOOD COUNT 6.2 10^3/uL (4.0-10.5)
[2017-10-31 19:07] LABS: ANION GAP 12 (5-19); BLOOD UREA NITROGEN 33 mg/dL (7-20); CALCIUM 9.8 mg/dL (8.4-10.2); CARBON DIOXIDE 32 mmol/L (22-30); CHLORIDE 100 mmol/L (98-107); GLUCOSE 104 mg/dL (75-110); POTASSIUM 3.8 mmol/L (3.6-5.0); SODIUM 143.7 mmol/L (137-145)
[2017-10-31 19:23] LABS: FREE T4 (FREE THYROXINE) 1.71 ng/dL (0.78-2.19)
[2017-10-31 19:37] LABS: THYROID STIMULATING HORMONE 37.3 uIU/mL (0.47-4.68)
== END ==
LOC: OD 17:55
PROVIDERS: ATTEND Internal Medicine
DX: N18.3 Chronic kidney disease, stage 3 (moderate) (principal); D64.9 Anemia, unspecified; E83.42 Hypomagnesemia; E03.8 Other specified hypothyroidism; R19.7 Diarrhea, unspecified; E78.2 Mixed hyperlipidemia
CPT/HCPCS: 36415; 80048; 83735; 84439; 84443; 85027; 87045; 87205; 87324; 89055

== ENCOUNTER → 2017-11-04 | Outpatient (CLI) | payer OTHER ==
[2017-11-04 15:34] LABS: CHOLESTEROL 185.33 mg/dL (0-200); TRIGLYCERIDES 119 mg/dL (<150)
[2017-11-04 15:45] LABS: DIRECT LDL 72 mg/dL (<100)
== END ==
LOC: OD 14:42
PROVIDERS: ATTEND Internal Medicine
DX: E03.8 Other specified hypothyroidism (principal); R19.7 Diarrhea, unspecified
CPT/HCPCS: 36415; 80061

== ENCOUNTER → 2018-03-17 | Outpatient (CLI) | payer OTHER ==
[2018-03-17 16:24] LABS: HEMATOCRIT 34.2 % (36.0-47.0); HEMOGLOBIN 11.4 g/dL (12.0-15.5); MEAN CORPUSCULAR HEMOGLOBIN 29.9 pg (27.0-33.4); MEAN CORPUSCULAR HGB CONC 33.5 g/dL (32.0-36.0); MEAN CORPUSCULAR VOLUME 89 fl (80-97); PLATELET COUNT 232 10^3/uL (150-450); RED BLOOD COUNT 3.82 10^6/uL (3.72-5.28); RED CELL DISTRIBUTION WIDTH 14.1 % (11.5-14.0); WHITE BLOOD COUNT 5.2 10^3/uL (4.0-10.5)
[2018-03-17 16:49] LABS: ANION GAP 13 (5-19); BLOOD UREA NITROGEN 32 mg/dL (7-20); CALCIUM 8.9 mg/dL (8.4-10.2); CARBON DIOXIDE 29 mmol/L (22-30); CHLORIDE 101 mmol/L (98-107); GLUCOSE 93 mg/dL (75-110); SODIUM 142.6 mmol/L (137-145)
[2018-03-17 17:51] LABS: FREE T4 (FREE THYROXINE) 2.49 ng/dL (0.78-2.19)
[2018-03-17 18:05] LABS: THYROID STIMULATING HORMONE 0.44 uIU/mL (0.47-4.68)
== END ==
LOC: OD 15:09
PROVIDERS: ATTEND Internal Medicine Nephrology
DX: I12.9 Hypertensive chronic kidney disease with stage 1 through stage 4 chronic kidney disease, or unspecified chronic kidney disease (principal); N18.3 Chronic kidney disease, stage 3 (moderate); E87.5 Hyperkalemia; D64.9 Anemia, unspecified; E03.8 Other specified hypothyroidism
CPT/HCPCS: 36415; 80048; 83735; 84439; 84443; 85027

== ENCOUNTER → 2018-04-17 | Outpatient (CLI) | payer OTHER | LOC: OD 14:55 | PROVIDERS: ATTEND Physician Assistant Medical | DX: I12.9 Hypertensive chronic kidney disease with stage 1 through stage 4 chronic kidney disease, or unspecified chronic kidney disease (principal); N18.3 Chronic kidney disease, stage 3 (moderate); D64.9 Anemia, unspecified | CPT/HCPCS: 36415; 83735 ==

== ENCOUNTER → 2018-05-20 | Outpatient (CLI) | payer OTHER | LOC: OD 14:32 | PROVIDERS: ATTEND Internal Medicine Nephrology | DX: E03.8 Other specified hypothyroidism (principal); E83.42 Hypomagnesemia | CPT/HCPCS: 36415; 83735; 84439; 84443 ==

== ENCOUNTER → 2018-06-04 | Outpatient (CLI) | payer OTHER ==
--- NOTE | 2018-06-04 13:07 | RADIOLOGY REPORT (SQ) ---
EXAM DESCRIPTION: CHEST PA/LATERAL COMPLETED DATE/TIME: 06/04/2018 12:52 pm REASON FOR STUDY: MODERATE PERSISTANT ASTHMA COMPARISON: March 2016 EXAM PARAMETERS: NUMBER OF VIEWS: two views TECHNIQUE: Digital Frontal and Lateral radiographic views of the chest acquired. RADIATION DOSE: NA LIMITATIONS: none FINDINGS: LUNGS AND PLEURA: No opacities, masses or pneumothorax. No pleural effusion. Chronic appe aring interstitial changes are identified. MEDIASTINUM AND HILAR STRUCTURES: No masses or contour abnormalities. HEART AND VASCULAR STRUCTURES: Heart normal size. No evidence for failure. BONES: No acute findings. HARDWARE: None in the chest. OTHER: No other significant finding. IMPRESSION: NO acute RADIOGRAPHIC FINDING IN THE CHEST. TECHNICAL DOCUMENTATION: JOB ID: [id number] [employer]- All Rights Reserved Reading location - IP/workstation name: [email or web address]
== END ==
LOC: OD 12:33
PROVIDERS: ATTEND Internal Medicine
DX: J45.40 Moderate persistent asthma, uncomplicated (principal)
CPT/HCPCS: 71046

== ENCOUNTER 2018-06-23 18:16 | Inpatient (IN) | payer MEDICARE, OTHER ==
[2018-06-23 18:44] LABS: ABSOLUTE EOSINOPHILS # (AUTO) 0.2 10^3/uL (0.0-0.6); ABSOLUTE LYMPHOCYTES (AUTO) 0.6 10^3/uL (0.5-4.7); ABSOLUTE MONOCYTES (AUTO) 0.5 10^3/uL (0.1-1.4); ABSOLUTE NEUT (AUTO) 8.2 10^3/uL (1.7-8.2); BASOPHILS % (AUTO) 0.2 % (0-2); EOSINOPHILS % (AUTO) 1.8 % (0-6); HEMATOCRIT 31.4 % (36.0-47.0); HEMOGLOBIN 10.6 g/dL (12.0-15.5); LYMPHOCYTES % (AUTO) 6.7 % (13-45); MEAN CORPUSCULAR HEMOGLOBIN 30.1 pg (27.0-33.4); MEAN CORPUSCULAR HGB CONC 33.7 g/dL (32.0-36.0); MEAN CORPUSCULAR VOLUME 89 fl (80-97); MONOCYTES % (AUTO) 5.7 % (3-13); PLATELET COUNT 254 10^3/uL (150-450); RED BLOOD COUNT 3.51 10^6/uL (3.72-5.28); RED CELL DISTRIBUTION WIDTH 14.2 % (11.5-14.0); SEGMENTED NEUTROPHILS % (AUTO) 85.6 % (42-78); TOTAL CELLS COUNTED % (AUTO) 100 %; WHITE BLOOD COUNT 9.6 10^3/uL (4.0-10.5)
[2018-06-23 18:59] LABS: ALANINE AMINOTRANSFERASE 20 U/L (9-52); ALBUMIN 3.8 g/dL (3.5-5.0); ALKALINE PHOSPHATASE 95 U/L (38-126); ANION GAP 12 (5-19); ASPARTATE AMINO TRANSFERASE 25 U/L (14-36); BILIRUBIN,DIRECT 0.3 mg/dL (0.0-0.4); BILIRUBIN,TOTAL 0.4 mg/dL (0.2-1.3); BLOOD UREA NITROGEN 34 mg/dL (7-20); CALCIUM 8.4 mg/dL (8.4-10.2); CARBON DIOXIDE 30 mmol/L (22-30); CHLORIDE 99 mmol/L (98-107); CREATINE KINASE 129 U/L (30-135); GLUCOSE 114 mg/dL (75-110); POTASSIUM 4.6 mmol/L (3.6-5.0); SODIUM 140.8 mmol/L (137-145); TOTAL PROTEIN 6.8 g/dL (6.3-8.2)
--- NOTE | 2018-06-23 19:02 | RADIOLOGY REPORT (SQ) ---
EXAM DESCRIPTION: CHEST SINGLE VIEW COMPLETED DATE/TIME: 06/23/2018 6:53 pm REASON FOR STUDY: sob COMPARISON: 06/04/2018 EXAM PARAMETERS: NUMBER OF VIEWS: One view. TECHNIQUE: Single frontal radiographic view of the chest acquired. RADIATION DOSE: NA LIMITATIONS: None. FINDINGS: LUNGS AND PLEURA: Pulmonary edema. MEDIASTINUM AND HILAR STRUCTURES: No masses. Contour normal. HEART AND VASCULAR STRUCTURES: Heart size is borderline. BONES: No acute findings. HARDWARE: None in the chest. OTHER: No other significant finding. IMPRESSION: Borderline cardiomegaly with pulmonary edema. TECHNICAL DOCUMENTATION: JOB ID: [id number] [employer]- All Rights Reserved Reading location - IP/workstation name: [email or web address]
[2018-06-23 19:12] LABS: CREATINE KINASE MB 1.51 ng/mL (<4.55); TROPONIN I < 0.012 ng/mL
--- NOTE | 2018-06-23 19:32 | ER Document Report ---
ED Respiratory Problem - General Chief Complaint: Shortness Of Breath Stated Complaint: DIFFICULTY BREATHING Time Seen by Provider: 06/23/18 18:26 Mode of Arrival: Stretcher Information source: Patient, Relative Notes: Patient is a 62-year-old female with a history of COPD, chronic renal failure, and CVA who presents with shortness of breath. Symptoms began "a couple hours ago," no improvement with home Albuterol nebulizer, improved with EMS Duoneb and CPAP, arrived on CPAP and reports big improvement. No recent illnesses or fevers, no chest pain, increased swelling in both legs above baseline. No changes in medications. TRAVEL OUTSIDE OF THE [place] IN LAST 30 DAYS: No - HPI Patient complains to provider of: COPD, Short of breath. No: Chest pain Onset: This evening Duration: Better, Continuous Initiating Event: No: Exertion, Out of meds Quality of pain: No pain Severity: Moderate Pain Level: Denies Context: Hx COPD. denies: DVT Short of Breath: Moderate Chest pain/discomfort: denies: Center, Constant, Heaviness, Intermittent, Left, Pain, Radiates to arm, Radiates to back, Radiates to jaw, Right, Tightness, Worse with deep breaths Cough: Nonproductive Sputum amount: None Sputum color: denies: Brown, Clear, Creamy, Smiley, Green, [place] tinged, Red (blood ), Red Specks, Rust, Small Clots, Sethi, White, Yellow At home treatment: Bronchodilators EMS treatments: Bronchodilators, CPAP Associated symptoms: Ankle/leg swelling, Cough, Difficulty breathing. denies: Chest pain/discomfort, Chills Similar symptoms previously: Yes - COPD Recently seen / treated by doctor: No - Related Data Allergies/Adverse Reactions: pregabalin [From Lyrica] Allergy (Unknown, Verified 12/15/15 13:14) trazodone HCl [From Desyrel] Allergy (Unknown, Verified 12/15/15 13:14) cephalexin monohydrate [From Keflex] Adverse Reaction (Verified 12/15/15 13:14) nausea, vomiting erythromycin base [Erythromycin Base] Adverse Reaction (Verified 12/15/15 13:14) nausea, vomiting Past Medical History - General Information source: Patient, Relative - Social History Smoking Status: Former Smoker Cigarette use (# per day): No Chew tobacco use (# tins/day): No Smoking Education Provided: No Frequency of alcohol use: None Drug Abuse: None Lives with: Family Family History: Reviewed & Not Pertinent Patient has suicidal ideation: No Patient has homicidal ideation: No - Medical History Medical History: Other - COPD, renal failure, CVA, HTN - Past Medical History Cardiac Medical History: Reports: Hx Congestive Heart Failure, Hx Hypercholesterolemia, Hx Hypertension Denies: Hx Coronary Artery Disease - HIGH CHOLESTEROL Pulmonary Medical History: Reports: Hx Asthma, Hx Bronchitis, Hx COPD, Hx Pneumonia Denies: Hx Tuberculosis Neurological Medical History: Reports: Hx Cerebrovascular Accident - 7 YEARS AGO HAS "MEMORY ISSUES" "STROKE X5. Denies: Hx Seizures Endocrine Medical History: Reports: Hx Hypothyroidism Renal/ Medical History: Reports: Hx Renal Insufficiency. Denies: Hx Peritoneal Dialysis Malignancy Medical History: Reports: None GI Medical History: Reports: None Musculoskeletal Medical History: Reports None Skin Medical History: Reports None Psychiatric Medical History: Reports: Hx Depression Traumatic Medical History: Reports: None Infectious Medical History: Reports: None Past Surgical History: Reports: Hx Dilation and Curettage, Hx Hysterectomy, Hx Tubal Ligation - Immunizations Hx Diphtheria, Pertussis, Tetanus Vaccination: Yes Review of Systems - Review of Systems Constitutional: denies: Chills, Fever, Malaise EENT: No symptoms reported Cardiovascular: Dyspnea. denies: Chest pain, Palpitations Respiratory: Cough, Short of breath. denies: Hemoptysis, Sputum Gastrointestinal: No symptoms reported Genitourinary: No symptoms reported Female Genitourinary: No symptoms reported Musculoskeletal: No symptoms reported Skin: No symptoms reported Hematologic/Lymphatic: No symptoms reported Neurological/Psychological: No symptoms reported -: Yes All other systems reviewed and negative Physical Exam - Vital signs Vitals: Resp Pulse Ox 30 H 99 06/23/18 18:30 06/23/18 18:30 Interpretation: Normal - General General appearance: Other - Dyspneic In distress: Mild - HEENT Head: Normocephalic, Atraumatic Eyes: Normal Pupils: PERRL - Respiratory Respiratory status: Respiratory distress Chest status: Nontender Breath sounds: Decreased air movement, Rales, Wheezing. No: Rhonchi, Stridor Chest palpation: Normal - Cardiovascular Heart sounds: Normal auscultation Murmur: No Pulses: Normal: Radial, Carotid Normal capillary refill: No - Abdominal Inspection: Normal Distension: No distension Bowel sounds: Normal Tenderness: Nontender - Rectal Tenderness: No - Deferred - Genitourinary External exam: Other - Deferred - Back Back: Normal - Extremities General upper extremity: Normal inspection, Nontender, Normal ROM, Normal strength General lower extremity: Tender, Edema. No: Normal ROM, Normal strength Shoulder: Normal Arm: Normal Elbow: Normal Forearm: Normal Wrist: Normal Hand: Normal Hip: Normal Notes: Right leg with 2+ edema, Left leg with pitting 4+ asymmetrical edema - Neurological Cognition: Normal Orientation: AAOx4 - Psychological Associated symptoms: Normal affect - Skin Skin Temperature: Warm Skin Moisture: Dry Skin Color: Normal Course - Re-evaluation Re-evalutation: 06/23/18 21:02 Blood work shows negative cardiac enzymes and normal BNP, normal white blood cell count, urinalysis still pending. Chest x-ray consistent with mild to moderate pulmonary edema. Patient will be given 80 mg of IV Lasix as well as 125 mg of IV Solu-Medrol. She will be admitted for likely CHF exacerbation. 06/23/18 21:28 Patient is admitted by Dr. Henderson. - Vital Signs Vital signs: Temp Pulse Resp BP Pulse Ox 16 121/84 94 06/23/18 21:01 06/23/18 21:01 06/23/18 21:01 - Laboratory Result Diagrams: 06/23/18 18:30 06/23/18 18:30 Laboratory results interpreted by me: 06/23/18 06/23/18 06/23/18 18:30 18:30 21:52 RBC 3.51 L Hgb 10.6 L Hct 31.4 L RDW 14.2 H Seg Neutrophils % 85.6 H Lymphocytes % 6.7 L Carbonic Acid 1.45 H ABG pCO2 48.1 H ABG pO2 79.7 L ABG HCO3 26.3 H ABG Total CO2 27.8 H BUN 34 H Creatinine 1.64 H Est GFR ( Amer) 38 L Est GFR (Non-Af Amer) 32 L Glucose 114 H - Diagnostic Test Radiology reviewed: Reports reviewed - EKG Interpretation by Me EKG shows normal: Sinus rhythm Rate: Tachycardia Rhythm: NSR When compared to previous EKG there are: No significant change Additional EKG results interpreted by me: 06/23/18 20:14 Comparison from 03/19/2016 - Consults Dr. Henderson Time consulted: 21:28 - Patient will be admitted Reason for consultation: 06/23/18 22:29 Shortness of breath, CHF exacerbation Consulted provider: will come to ER Discharge - Discharge Clinical Impression: Shortness of breath, Acute exacerbation of CHF (congestive heart failure), Peripheral edema Condition: Fair Disposition: ADMITTED INPATIENT Admitting Provider: Hospitalist Unit Admitted: IMCU Referrals: MARK HAILE MD [Primary Care Provider] - Follow up as needed
[2018-06-23] MEDS ORDERED: ACETAMINOPHEN 325 MG TABLET PO ONE (20:36)
[2018-06-23] MEDS ORDERED: METHYLPREDNISOLONE INJ 125 MG/2 ML SDV IV ONE (21:00)
[2018-06-23] MEDS: FUROSEMIDE INJ/PF 40 MG/4 ML SDV IV ONE ×2 (21:26→22:10)
[2018-06-23 22:02] LABS: ARTERIAL BLOOD BASE EXCESS 0.4 mmol/L; ARTERIAL BLOOD H2CO3 1.45 mmol/L (1.05-1.35); ARTERIAL BLOOD HCO3 26.3 mmol/L (20-24); ARTERIAL BLOOD O2 SATURATION 95.2 % (94-98); ARTERIAL BLOOD PCO2 48.1 mmHg (35-45); ARTERIAL BLOOD PH 7.36 (7.35-7.45); ARTERIAL BLOOD PO2 79.7 mmHg (80-100); ARTERIAL BLOOD TOTAL CO2 27.8 mmol/L (21-25)
[2018-06-23 22:03] LABS: ARTERIAL BLOOD FIO2 32%
[2018-06-23 22:20] LABS: APPEARANCE,URINE CLEAR; BILIRUBIN,URINE NEGATIVE (NEGATIVE); COLOR,URINE YELLOW; GLUCOSE, URINE NEGATIVE (NEGATIVE); KETONES,URINE NEGATIVE (NEGATIVE); LEUKOCYTE ESTERASE,URINE NEGATIVE (NEGATIVE); NITRITE,URINE NEGATIVE (NEGATIVE); PROTEIN,URINE NEGATIVE (NEGATIVE); URINE SPECIFIC GRAVITY 1.012; UROBILINOGEN,URINE NEGATIVE mg/dL (<2.0)
[2018-06-23] MEDS ORDERED: PROMETHAZINE HCL 25 MG SUPP.RECT PR PRN (23:23)
[2018-06-23] MEDS ORDERED: MAG HYDROX/AL HYDROX/SIMETH SUSP 30 ML UDCUP PO PRN (23:23)
[2018-06-23] MEDS ORDERED: LACTULOSE SYRUP 20 GM/30 ML UDCUP PO PRN (23:30)
[2018-06-23] MEDS ORDERED: LEVOFLOXACIN 750 MG/D5W RTU 750 MG/150 ML RTUPB IV ONE (23:40)
[2018-06-23] MEDS ORDERED: ERGOCALCIFEROL (VITAMIN D2) 50000 UNIT (1.25 MG) CAPSULE PO SCH (23:45)
[2018-06-23] MEDS ORDERED: FUROSEMIDE INJ/PF 40 MG/4 ML SDV IV ONE (23:45)
--- NOTE | 2018-06-23 23:57 | PDOC H&P ---
History of Present Illness Admission Date/PCP: 06/23/18 22:40 MARK HAILE MD Patient complains of: Shortness of breath History of Present Illness: LEATHA ATKINS is a 62 year old female with multiple chronic medical conditions and polypharmacy who comes to the emergency department complaining of progressive shortness of breath for the last 2 days, associated with dry cough, wheezing, his dyspnea was so severe that she was unable to go to the bathroom. She has been using her nebulizer treatments at home unsuccessfully. Today she decided to call EMS and she was found with an oxygen saturation of 70% on room air, she was placed on CPAP during her transportation to the emergency department, initially was placed on BiPAP and later on on oxygen via nasal cannula, currently saturating 94% on 2-1/2 L of oxygen. Denies fever, chills, nausea, vomiting, chest pain, abdominal pain, change in her bowel movement her urine. Patient complains of intermittent lower extremities edema, emergencies was concerned and sent a d-dimer that came back 3.8, he requested lower extremities ultrasound in the emergency room apparently came back negative. Patient is chronically anticoagulated with Arixtra secondary to her 5 episodes of CVA. BNP 500 better than 2200 29 February 2016. Chest x-ray is read as pulmonary edema with cardiomegaly. Positive troponin negative. Initially order 80 mg IV Lasix which was held by the emergencies. Past Medical History Cardiac Medical History: Reports: Congestive Heart Failure, Hyperlipidema, Hypertension Denies: Coronary Artery Disease - HIGH CHOLESTEROL Pulmonary Medical History: Reports: Asthma, Bronchitis, Chronic Obstructive Pulmonary Disease (COPD), Pneumonia Denies: Tuberculosis Neurological Medical History: Denies: Seizures Endocrine Medical History: Reports: Hypothyroidism Malignancy Medical History: Reports: None GI Medical History: Reports: None Musculoskeltal Medical History: Reports: None Skin Medical History: Reports: None Psychiatric Medical History: Reports: Depression Traumatic Medical History: Reports: None Hematology: Denies: Anemia Infectious Medical History: Reports: None Past Surgical History Past Surgical History: Reports: Hysterectomy, Tubal Ligation Social History Lives with: Family Smoking Status: Former Smoker Frequency of Alcohol Use: None Hx Recreational Drug Use: No Drugs: None Hx Prescription Drug Abuse: No Family History Family History: Reviewed & Not Pertinent Family History: Mother at 74 years old with COPD and polycythemia vera. Of her diet 83 years old with diabetes mellitus Parental Family History Reviewed: Yes Children Family History Reviewed: Yes Sibling(s) Family History Reviewed.: Yes Medication/Allergy Home Medications: Alprazolam [Xanax 0.5 mg Tablet] 0.5 mg PO Q8HP PRN 12/25/16 Atorvastatin Calcium [Lipitor 20 mg Tablet] 20 mg PO DAILY 12/25/16 Cyclobenzaprine HCl [Flexeril 10 mg Tablet] 10 mg PO Q8HP PRN 12/25/16 Dicyclomine HCl [Bentyl 10 mg Capsule] 10 mg PO MEALS PRN 12/25/16 Donepezil HCl [Aricept] 10 mg PO DAILY 12/25/16 Ergocalciferol (Vitamin D2) [Vitamin D2] 50,000 unit PO [id number] 12/25/16 Eszopiclone [Lunesta] 4 mg PO QHS 12/25/16 Fluoxetine HCl [Prozac] 80 mg PO DAILY 12/25/16 Hydromorphone HCl [Dilaudid 2 mg Tablet] 2 mg PO Q4HP PRN MDD 6 TABS/DAY Levocetirizine Dihydrochloride [Xyzal] 5 mg PO QHS 12/25/16 Levothyroxine Sodium [Synthroid 0.025 mg Tablet] 0.025 mg PO DAILY 12/25/16 Levothyroxine Sodium [Synthroid] 200 mcg PO DAILY 12/25/16 Magnesium Oxide [Mag-Ox 400 mg Tablet] 400 mg PO DAILY 12/25/16 Metolazone [Zaroxolyn 5 mg Tablet] 5 mg PO Q2DAYS 12/25/16 Morphine Sulfate [Ms-Contin Sr 30 mg Tablet] 30 mg PO Q8 12/25/16 Nystatin [Mycostatin Topical Powder 15 gm] 1 applic TOP BIDP PRN 12/25/16 Omeprazole 20 mg PO DAILY 12/25/16 Pnv,Calcium 72/Iron,Carb/Folic [ Plus Iron Tablet] 1 tab PO DAILY Potassium Chloride [K-Tab ER] 20 meq PO DAILY 12/25/16 Primidone [Mysoline 50 mg Tablet] 50 mg PO TID 12/25/16 Promethazine HCl [Phenergan 25 mg Tablet] 25 mg PO Q6HP PRN 12/25/16 Ramipril [Altace 2.5 mg Capsule] 2.5 mg PO QHS 12/25/16 Ropinirole HCl [Requip 0.25 mg Tablet] 0.25 mg PO BID 12/25/16 Albuterol Sulfate [Albuterol Sulfate 2.5mg/3 mL] 1 vial IH RTQ4HP PRN 12/26/16 Albuterol Sulfate [Proair HFA] 2 puff IH Q6HP PRN 12/26/16 Bumetanide [Bumex 1 mg Tablet] 1 mg PO DAILY@1400 12/26/16 Bumetanide [Bumex 1 mg Tablet] 2 mg PO QAM 12/26/16 Fondaparinux Sodium [Arixtra] 7.5 mg SQ DAILY 12/26/16 Lactulose [Cephulac Syrup 20 gm/30 ml Udcup] 20 gm PO Q4 PRN #20 oz 12/27/16 Levofloxacin [Levaquin 750 mg Tablet] 750 mg PO QHS #5 tablet 12/27/16 Allergies/Adverse Reactions: pregabalin [From Lyrica] Allergy (Unknown, Verified 12/15/15 13:14) trazodone HCl [From Desyrel] Allergy (Unknown, Verified 12/15/15 13:14) cephalexin monohydrate [From Keflex] Adverse Reaction (Verified 12/15/15 13:14) nausea, vomiting erythromycin base [Erythromycin Base] Adverse Reaction (Verified 12/15/15 13:14) nausea, vomiting Review of Systems Review of Systems: As outlined in the HPI, all others negative Physical Exam Vital Signs: Temp Pulse Resp BP Pulse Ox 11 L 122/48 L 94 06/23/18 22:01 06/23/18 22:01 06/23/18 22:01 Additional comments: General appearance: Well-developed, morbidly obese, alert and cooperative, and appears to be in no acute distress. Wearing nasal cannula Head: Normocephalic Eyes: PEERL, EOMI, vision is grossly intact. Ears: External auditory canal and tympanic membranes clear, hearing grossly intact. Nose: No nasal discharge. Throat: Oral cavity and pharynx normal. No inflammation, swelling, exudate or lesions. Neck: Neck supple, nontender without lymphadenopathy, masses or thyromegaly. Cardiac: Normal S1 and S2. No S3, S4 or murmurs. Rhythm is regular. There is no cyanosis or pallor. Extremities are warm and well perfused. Capillary refill is less than 2 seconds. No carotid bruits. Lungs: Distant breath sounds with expiratory wheezing and diffuse crackles, do not appreciate rhonchi. Not using accessory muscles. Abdomen: Positive bowel sounds. Soft. Nondistended, nontender. No guarding or rebound. No masses. Difficult to appreciate hepatosplenomegaly secondary to body habitus Extremities: No significant deformity or joint abnormality. 2+ lower extremities pitting edema. Peripheral pulses intact. Neurological: Cranial nerves II through XII grossly intact. Strength and sensation symmetric and intact throughout. Reflexes 2+ throughout. Skin: Skin normal color, texture and turgor with no lesions or eruptions, warm and dry. Psychiatric: The mental examination revealed the patient was oriented to person , place, and time. The patient was able to demonstrate good judgment on recent , without hallucinations, abnormal affect or abnormal behaviors. Results Laboratory Results: 06/23/18 06/23/18 06/23/18 18:30 18:30 18:30 WBC 9.6 RBC 3.51 L Hgb 10.6 L Hct 31.4 L MCV 89 MCH 30.1 MCHC 33.7 RDW 14.2 H Plt Count 254 Seg Neutrophils % 85.6 H Lymphocytes % 6.7 L Monocytes % 5.7 Eosinophils % 1.8 Absolute Neutrophils 8.2 Absolute Lymphocytes 0.6 Absolute Monocytes 0.5 Absolute Eosinophils 0.2 Absolute Basophils 0.0 Carbonic Acid HCO3/H2CO3 Ratio ABG pH ABG pCO2 ABG pO2 ABG HCO3 ABG Total CO2 ABG O2 Saturation ABG Base Excess FiO2 Sodium 140.8 Potassium 4.6 Chloride 99 Carbon Dioxide 30 Anion Gap 12 BUN 34 H Creatinine 1.64 H Est GFR ( Amer) 38 L Est GFR (Non-Af Amer) 32 L Glucose 114 H Calcium 8.4 Total Bilirubin 0.4 Direct Bilirubin 0.3 AST 25 ALT 20 Alkaline Phosphatase 95 Creatine Kinase 129 CK-MB (CK-2) 1.51 Troponin I < 0.012 NT-Pro-B Natriuret Pep Total Protein 6.8 Albumin 3.8 Urine Color Urine Appearance Urine pH Urine Protein Urine Glucose (UA) Urine Ketones Urine Blood Urine Nitrite Urine Bilirubin Urine Urobilinogen Ur Leukocyte Esterase Urine WBC (Auto) Urine RBC (Auto) U Hyaline Cast (Auto) Urine Bacteria (Auto) Squamous Epi Cells Auto Urine Mucus (Auto) Urine Ascorbic Acid 06/23/18 06/23/18 06/23/18 18:30 21:46 21:52 WBC RBC Hgb Hct MCV MCH MCHC RDW Plt Count Seg Neutrophils % Lymphocytes % Monocytes % Eosinophils % Absolute Neutrophils Absolute Lymphocytes Absolute Monocytes Absolute Eosinophils Absolute Basophils Carbonic Acid 1.45 H HCO3/H2CO3 Ratio 18:1 ABG pH 7.36 ABG pCO2 48.1 H ABG pO2 79.7 L ABG HCO3 26.3 H ABG Total CO2 27.8 H ABG O2 Saturation 95.2 ABG Base Excess 0.4 FiO2 32% Sodium Potassium Chloride Carbon Dioxide Anion Gap BUN Creatinine Est GFR ( Amer) Est GFR (Non-Af Amer) Glucose Calcium Total Bilirubin Direct Bilirubin AST ALT Alkaline Phosphatase Creatine Kinase CK-MB (CK-2) Troponin I NT-Pro-B Natriuret Pep 500 Total Protein Albumin Urine Color YELLOW Urine Appearance CLEAR Urine pH 5.0 Urine Protein NEGATIVE Urine Glucose (UA) NEGATIVE Urine Ketones NEGATIVE Urine Blood NEGATIVE Urine Nitrite NEGATIVE Urine Bilirubin NEGATIVE Urine Urobilinogen NEGATIVE Ur Leukocyte Esterase NEGATIVE Urine WBC (Auto) 0 Urine RBC (Auto) 0 U Hyaline Cast (Auto) 9 Urine Bacteria (Auto) 2+ Squamous Epi Cells Auto <1 Urine Mucus (Auto) RARE Urine Ascorbic Acid NEGATIVE Impressions: Chest X-Ray 06/23/18 18:20 IMPRESSION: Borderline cardiomegaly with pulmonary edema. Assessment & Plan - Diagnosis (1) COPD exacerbation Is this a current diagnosis for this admission?: Yes Plan: Patient comes with respiratory symptoms consistent with COPD exacerbation, I will keep the patient on telemetry monitoring, oxygen protocol via nasal cannula , Solu-Medrol 60 mg every 8 hours, nebulizer treatment every 3 hours with Solu- Medrol and Xopenex as needed. Incentive spirometry. Sputum culture if possible. IV Levaquin. (2) Acute on chronic diastolic (congestive) heart failure Is this a current diagnosis for this admission?: Yes Plan: BUN is 500 better than before, chest x-ray looks to me similar to prior, this is a questionable CHF exacerbation, I will give 40 mg of IV Lasix x1 and I will continue with her home Bumex and metolazone nephrology consultation with Dr. Webber has been placed to give us better idea what to do with her diuretics as she is on acute on chronic renal failure. Patient has bilateral intermittent lower extremity swelling that has not changed since a long ago, there was a concern for DVT as d-dimer was elevated, variable report apparently negative, patient is on anticoagulation with Arixtra. (3) Acute on chronic renal failure Is this a current diagnosis for this admission?: Yes Plan: Acute on chronic CKD stage III, BUN 34 and creatinine 1.64, February BUN was 32 and creatinine 1.25, patient tells me that she follows with Dr. Calderon and she has blood work done 2 [address] ago[address] I will place a consultation with Dr. Webber who is our occupational therapy director tool and production planner tomorrow. Avoid nephrotoxic drugs. For now I am continuing with her Bumex and metolazone. (4) Chronic back pain Is this a current diagnosis for this admission?: Yes (5) Hypertension Qualifiers: Hypertension type: essential hypertension Qualified Code(s): I10 - Essential (primary) hypertension Is this a current diagnosis for this admission?: Yes Plan: Blood pressure well controlled, continue with home antihypertensive medications (6) Hypothyroidism Is this a current diagnosis for this admission?: Yes Plan: Continue with Synthroid (7) Opioid dependence Is this a current diagnosis for this admission?: Yes Plan: Continue with home medications, on oxycodone. (8) History of CVA (cerebrovascular accident) Is this a current diagnosis for this admission?: Yes Plan: On anticoagulation with Arixtra as she has CVA x5 and other anticoagulations were not working. (9) DVT prophylaxis Is this a current diagnosis for this admission?: Yes Plan: Arixtra - Time Time Spent: 50 to 70 Minutes - Inpatient Certification Based on my medical assessment, after consideration of the patient's comorbidities, presenting symptoms, or acuity I expect that the services needed warrant INPATIENT care.: Yes I certify that my determination is in accordance with my understanding of Medicare's requirements for reasonable and necessary INPATIENT services [42 CFR 412.3e].: Yes Medical Necessity: Risk of Complication if Not Cared For in Hospital - Acute respiratory failure with respiratory arrest. - Plan Summary Plan Summary: Case discussed with patient, agree with plan
[2018-06-23] MEDS ORDERED: ATORVASTATIN CALCIUM 20 MG TABLET PO ONE (23:59)
[2018-06-23] MEDS ORDERED: CETIRIZINE 5 MG TABLET PO ONE (23:59)
[2018-06-24 00:02] LABS: INTERNATIONAL RATION (INR) 1.06; PROTHROMBIN TIME 14.4 SEC (11.4-15.4)
[2018-06-24] MEDS: IPRATROPIUM/ALBUTEROL 0.5-2.5 MG/3 ML AMPUL NEB SCH ×7 (01:50→20:14)
[2018-06-24] MEDS: ZOLPIDEM TARTRATE 5 MG TABLET PO SCH ×2 (03:23→21:20)
[2018-06-24] MEDS: ACETAMINOPHEN 325 MG TABLET PO PRN (03:32)
[2018-06-24] MEDS: METHYLPREDNISOLONE INJ 125 MG/2 ML SDV IV SCH ×4 (03:33→21:52)
[2018-06-24] MEDS: LANSOPRAZOLE 15 MG TAB.RAP.DR PO SCH (05:54)
[2018-06-24] MEDS: LEVOTHYROXINE SODIUM 0.1 MG TABLET PO SCH (05:54)
[2018-06-24] MEDS: LEVOTHYROXINE SODIUM 0.025 MG TABLET PO SCH (05:54)
[2018-06-24] MEDS: ALPRAZOLAM 0.5 MG TABLET PO PRN ×2 (05:54→18:01)
[2018-06-24] MEDS: MORPHINE SULFATE SR 30 MG TABLET PO SCH ×3 (05:54→21:22)
[2018-06-24 07:29] LABS: ANION GAP 11 (5-19); BLOOD UREA NITROGEN 37 mg/dL (7-20); CALCIUM 8.4 mg/dL (8.4-10.2); CARBON DIOXIDE 28 mmol/L (22-30); CHLORIDE 98 mmol/L (98-107); GLUCOSE 123 mg/dL (75-110); POTASSIUM 5.3 mmol/L (3.6-5.0); SODIUM 137.4 mmol/L (137-145)
[2018-06-24 07:34] LABS: HEMOGLOBIN 9.9 g/dL (12.0-15.5); MEAN CORPUSCULAR VOLUME 88 fl (80-97); PLATELET COUNT 218 10^3/uL (150-450); RED CELL DISTRIBUTION WIDTH 13.9 % (11.5-14.0); WHITE BLOOD COUNT 12.7 10^3/uL (4.0-10.5)
[2018-06-24 07:40] LABS: ABSOLUTE LYMPHOCYTES# (MANUAL) 0.9 10^3/uL (0.5-4.7); ABSOLUTE MONOCYTES # (MANUAL) 0.4 10^3/uL (0.1-1.4); ABSOLUTE NEUTROPHILS# (MANUAL) 11.4 10^3/uL (1.7-8.2); BASOPHILS % (MANUAL) 0 % (0-2); EOSINOPHILS % (MANUAL) 0 % (0-6); LYMPHOCYTES % (MANUAL) 7 % (13-45); MONOCYTES % (MANUAL) 3 % (3-13); POIKILOCYTOSIS 1+; SEGMENTED NEUTROPHILS % (MAN) 90 % (42-78); TOTAL CELLS COUNTED 100
[2018-06-24 07:41] LABS: OVALOCYTES 1+; PLATELET COMMENT ADEQUATE
[2018-06-24] MEDS: POTASSIUM CHLORIDE 10 MEQ CAPSULE.ER PO SCH (11:02)
[2018-06-24] MEDS: MAGNESIUM OXIDE 400 MG TABLET PO SCH (11:03)
[2018-06-24] MEDS: DONEPEZIL HCL 5 MG TABLET PO SCH (11:03)
[2018-06-24] MEDS: PRIMIDONE 50 MG TABLET PO SCH ×3 (11:15→17:57)
[2018-06-24] MEDS: ROPINIROLE HCL 0.25 MG TABLET PO SCH ×2 (11:16→17:57)
[2018-06-24] MEDS: PRENATAL VITAMIN W DHA CAPSULE PO SCH (11:16)
--- NOTE | 2018-06-24 11:20 | XCELERA REPORT ---
[address] [facility] [address] Lower Extremity Venous Evaluation Procedure: Color flow and duplex imaging bilaterally of the veins of the lower extremities as well as the Common Femoral veins. Right Sided Venous Evaluation Normal vessel filling wall to wall, compression and augmentation as well as Colour flow down to the infrageniculate veins. Left Sided Venous Evaluation The Femoral vein was not well visualized. Normal vessel filling wall to wall, compression and augmentation as well as Colour flow down to the infrageniculate veins. Interpretation Summary No duplex evidence of DVT or obstruction in the bilateral lower extremities. Difficulty noted visualizing left Femoral vein. Name: LEATHA ATKINS Age: 62 yrs Gender: Female : 1955 Patient Status: Inpatient Patient Location: [place] [address]^A Study Date: 06/23/2018 09:53 PM Reason For Study: Increased leg swelling Ordering Physician: LIBRADO HERNANDEZ Performed By: Pepper Hernandez : LIBRADO HERNANDEZ > Jorje Butler
[2018-06-24] MEDS: FLUOXETINE HCL 20 MG CAPSULE PO SCH (11:21)
--- NOTE | 2018-06-24 11:25 | EKG REPORT ---
SEVERITY:- BORDERLINE ECG - SINUS TACHYCARDIA BORDERLINE INFERIOR Q WAVES : Confirmed by: Priscilla Reddy 24-Jun-2018 11:24:11
[2018-06-24] MEDS: HYDROMORPHONE HCL 2 MG TABLET PO PRN ×2 (11:35→19:32)
[2018-06-24] MEDS: FONDAPARINUX SODIUM INJ 7.5 MG/0.6 ML DISP.SYRIN SUBCUT SCH (11:37)
--- NOTE | 2018-06-24 13:08 | PDOC PROGRESS REPORT ---
Subjective Progress Note for:: 06/24/18 Subjective:: Ms. Doherty is a 62 yr old female with a PMH of chronic diastolic heart failure , HTN, hyperlipidemia, ?COPD vs asthma and prior CVA who initially presented with worsening SOB, cough and wheezing. She did have On records, it is indicated she has history of asthma and COPD but patient says she was not formally diagnosed before with either and has not had any PFT done before and has not seen a physician industrial. Chest x-ray showed pulmonary edema. She does say she has chronic pedal edema and 2-3 pillow orthopnea which she thinks is slightly progressing. Upon encounter this morning, she says her breathing has slightly improved. She is currently saturating well on 3L of NC. She denies chest pain, nausea or dizziness. She has occasional non-productive cough. Reason For Visit: COPD EXACERBATION Physical Exam Vital Signs: Temp Pulse Resp BP Pulse Ox 98.5 F 103 H 18 106/55 L 94 06/24/18 07:50 06/24/18 11:38 06/24/18 11:38 06/24/18 07:50 06/24/18 11:38 Intake & Output 06/23/18 06/24/18 06/25/18 06:59 06:59 06:59 Intake Total 350 Output Total 1000 Balance -650 Weight 272 lb 4.334 oz 272 lb 4.334 oz General appearance: PRESENT: no acute distress, well-developed, well-nourished Results Laboratory Results: 06/24/18 05:55 06/24/18 05:55 06/24/18 06/24/18 05:55 05:55 WBC 12.7 H RBC 3.30 L Hgb 9.9 L Hct 29.0 L MCV 88 MCH 30.0 MCHC 34.0 RDW 13.9 Plt Count 218 Seg Neutrophils % Not Reportable Lymphocytes % Not Reportable Monocytes % Not Reportable Eosinophils % Not Reportable Basophils % Not Reportable Absolute Neutrophils Not Reportable Absolute Lymphocytes Not Reportable Absolute Monocytes Not Reportable Absolute Eosinophils Not Reportable Absolute Basophils Not Reportable Sodium 137.4 Potassium 5.3 H Chloride 98 Carbon Dioxide 28 Anion Gap 11 BUN 37 H Creatinine 1.57 H Est GFR ( Amer) 40 L Est GFR (Non-Af Amer) 33 L Glucose 123 H Calcium 8.4 Phosphorus 4.0 Magnesium 1.6 06/23/18 06/24/18 06/24/18 23:50 05:55 11:35 Troponin I 0.018 0.021 0.014 Impressions: Chest X-Ray 06/23/18 18:20 IMPRESSION: Borderline cardiomegaly with pulmonary edema. Assessment & Plan - Diagnosis (1) Acute hypoxemic respiratory failure Is this a current diagnosis for this admission?: Yes Plan: Likely from COPD vs asthma exacerbation. Currently saturating well on 3L via NC. (2) COPD exacerbation Is this a current diagnosis for this admission?: Yes Plan: Continue solumedrol 60 mg q8h today. Continue breathing treatments and Levaquin. (3) Acute on chronic diastolic (congestive) heart failure Is this a current diagnosis for this admission?: Yes Plan: Patient's echo in 2016 shows grade 1 diastolic dysfunction. She says she has chronic pedal edema and 2-3 pillow orthopnea which she says has been progressing. Will order an echo. (4) Acute kidney injury Is this a current diagnosis for this admission?: Yes Plan: Slightly improved. Creatinine slightly trended down to 1.5 from 1.6. She has a baseline Crea of 1.2. - Time Time Spent with patient: 25-34 minutes
[2018-06-24 14:41] LABS: ANION GAP 10 (5-19); BLOOD UREA NITROGEN 41 mg/dL (7-20); CALCIUM 8.5 mg/dL (8.4-10.2); CARBON DIOXIDE 29 mmol/L (22-30); CHLORIDE 98 mmol/L (98-107); GLUCOSE 152 mg/dL (75-110); POTASSIUM 4.8 mmol/L (3.6-5.0); SODIUM 136.9 mmol/L (137-145)
[2018-06-24] MEDS: BUMETANIDE 1 MG TABLET PO SCH (14:55)
[2018-06-24] MEDS: PROMETHAZINE HCL INJ 25 MG/1 ML VIAL IV PRN (14:57)
[2018-06-24] MEDS: NYSTATIN TOPICAL POWDER 15 GM TOP PRN (17:58)
[2018-06-24] MEDS: ATORVASTATIN CALCIUM 20 MG TABLET PO SCH (21:22)
[2018-06-24] MEDS: CETIRIZINE 5 MG TABLET PO SCH (21:22)
[2018-06-24] MEDS: FLUTICASONE/SALMETEROL DISKUS 250-50 MCG/DOSE IH SCH (22:22)
--- NOTE | 2018-06-24 23:00 | XCELERA REPORT ---
[address] [address] Transthoracic Echocardiogram Report Name: LEATHA ATKINS Age: 62 yrs Gender: Female : 1955 Patient Status: Inpatient Patient Location: [address] [place] [address] Study Date: 06/24/2018 02:44 PM Procedure: A two-dimensional transthoracic echocardiogram with color flow and Doppler was performed. Study Quality: Poor. The study was technically difficult with many images being suboptimal in quality. Reason For Study: pulm edema,worsening SOB,pedal edema,echo in 2015 History: pulm edema,worsening SOB,pedal edema,. Ordering Physician: JAYLA RIVERA Performed By: Tonya Arzola Interpretation Summary The left ventricle is normal in size. There is normal left ventricular wall thickness. LV EF is > than 70% Left ventricular systolic function is normal. The left ventricular wall motion is normal. There is no evidence of mitral valve prolapse. There is no vegetation seen on the mitral valve. There is no mitral valve stenosis. There is no mitral regurgitation noted. There is no aortic valve stenosis There is no LVOT obstruction. No aortic regurgitation is present. There is no tricuspid stenosis. No tricuspid regurgitation. Unable to calculate RVSP due lack of TR jet. The pulmonic valve is not well visualized. There is no pericardial effusion. MMode/2D Measurements & Calculations RVDd: 3.0 cm LVIDd: 4.9 cm FS: 38.6 % Ao root diam: 2.7 cm IVSd: 1.1 cm LVIDs: 3.0 cm EDV(Teich): 110.7 ml Ao root area: 5.7 cm2 LVPWd: 0.90 cm ESV(Teich): 34.5 ml EF(Teich): 68.8 % Doppler Measurements & Calculations MV E max tex: MV dec slope: Ao V2 max: LV V1 max P.3 cm/sec 157.6 cm/sec 7.2 mmHg MV A max tex: 1103 cm/sec2 Ao max PG: LV V1 max: 115.2 cm/sec MV dec time: 9.9 mmHg 134.4 cm/sec MV E/A: 1.1 0.11 sec PA V2 max: 112.3 cm/sec PA max P.0 mmHg Left Ventricle The left ventricle is normal in size. There is normal left ventricular wall thickness. LV EF is > than 70%. Left ventricular systolic function is normal. Doppler measurements suggest normal left ventricular diastolic function. The left ventricular wall motion is normal. There is no thrombus. Right Ventricle The right ventricle is not well visualized secondary to technical limitations. Atria Right atrium not well visualized secondary to technical limitations. The left atrium is mildly dilated. Mitral Valve There is no evidence of mitral valve prolapse. There is no vegetation seen on the mitral valve. There is no mitral valve stenosis. There is no mitral regurgitation noted. Aortic Valve There is no aortic valve stenosis. There is no LVOT obstruction. No aortic regurgitation is present. Tricuspid Valve There is no tricuspid stenosis. No tricuspid regurgitation. Unable to calculate RVSP due lack of TR jet. Pulmonic Valve The pulmonic valve is not well visualized. Great Vessels The aortic root is normal size. Effusions There is no pericardial effusion. : JAYLA RIVERA > Ladonna Ellis
[2018-06-25] MEDS: IPRATROPIUM/ALBUTEROL 0.5-2.5 MG/3 ML AMPUL NEB SCH ×3 (00:13→16:02)
[2018-06-25] MEDS: ALPRAZOLAM 0.5 MG TABLET PO PRN ×3 (02:16→18:56)
[2018-06-25] MEDS: LANSOPRAZOLE 15 MG TAB.RAP.DR PO SCH (05:31)
[2018-06-25] MEDS: LEVOTHYROXINE SODIUM 0.1 MG TABLET PO SCH (05:31)
[2018-06-25] MEDS: MORPHINE SULFATE SR 30 MG TABLET PO SCH ×3 (05:31→22:11)
[2018-06-25] MEDS: LEVOTHYROXINE SODIUM 0.025 MG TABLET PO SCH (05:32)
[2018-06-25] MEDS: METHYLPREDNISOLONE INJ 125 MG/2 ML SDV IV SCH ×2 (05:32→14:04)
[2018-06-25 06:08] LABS: ANION GAP 12 (5-19); BLOOD UREA NITROGEN 41 mg/dL (7-20); CALCIUM 8.7 mg/dL (8.4-10.2); CARBON DIOXIDE 27 mmol/L (22-30); CHLORIDE 97 mmol/L (98-107); GLUCOSE 140 mg/dL (75-110); POTASSIUM 4.9 mmol/L (3.6-5.0); SODIUM 136.4 mmol/L (137-145)
[2018-06-25] MEDS ORDERED: ALBUTEROL SULFATE 0.042% NEB (1.25 MG/3 ML) AMPUL NEB ONE (10:00)
[2018-06-25] MEDS: POTASSIUM CHLORIDE 10 MEQ CAPSULE.ER PO SCH (10:17)
[2018-06-25] MEDS: MAGNESIUM OXIDE 400 MG TABLET PO SCH (10:18)
[2018-06-25] MEDS: PROMETHAZINE HCL INJ 25 MG/1 ML VIAL IV PRN ×2 (10:18→20:30)
[2018-06-25] MEDS: FLUTICASONE/SALMETEROL DISKUS 250-50 MCG/DOSE IH SCH ×2 (10:18→22:12)
[2018-06-25] MEDS: DONEPEZIL HCL 5 MG TABLET PO SCH (10:19)
[2018-06-25] MEDS: FONDAPARINUX SODIUM INJ 7.5 MG/0.6 ML DISP.SYRIN SUBCUT SCH (10:20)
[2018-06-25] MEDS: PRIMIDONE 50 MG TABLET PO SCH ×3 (10:21→17:43)
[2018-06-25] MEDS: FLUOXETINE HCL 20 MG CAPSULE PO SCH (10:21)
[2018-06-25] MEDS: PRENATAL VITAMIN W DHA CAPSULE PO SCH (10:21)
[2018-06-25] MEDS: ROPINIROLE HCL 0.25 MG TABLET PO SCH ×2 (10:21→17:43)
[2018-06-25] MEDS: METOLAZONE 5 MG TABLET PO SCH (10:22)
--- NOTE | 2018-06-25 12:10 | RADIOLOGY REPORT (SQ) ---
EXAM DESCRIPTION: CHEST SINGLE VIEW COMPLETED DATE/TIME: 06/25/2018 11:59 am REASON FOR STUDY: reassess pulm edema COMPARISON: 06/23/2018, 06/04/2018, 04/08/2016 chest films EXAM PARAMETERS: NUMBER OF VIEWS: One view. TECHNIQUE: Single frontal radiographic view of the chest acquired. RADIATION DOSE: NA LIMITATIONS: Obese patient, long exposure, motion artifact FINDINGS: LUNGS AND PLEURA: There is patchy diffuse bilateral airspace disease worrisome for edema o r pneumonia. This is similar compared to 06/23/2018. No pleural effusion. No pneumothorax. MEDIASTINUM AND HILAR STRUCTURES: No masses. Contour normal. HEART AND VASCULAR STRUCTURES: Stable borderline cardiomegaly BONES: No acute findings. HARDWARE: None in the chest. OTHER: No other significant finding. IMPRESSION: Persistent bilateral alveolar infiltrates worrisome for pulmonary edema or pneumonia. S imilar compared to 06/23/2018. TECHNICAL DOCUMENTATION: JOB ID: [id number] [employer]- All Rights Reserved Reading location - IP/workstation name: [facility]
[2018-06-25] MEDS: HYDROMORPHONE HCL 2 MG TABLET PO PRN ×2 (12:27→16:47)
[2018-06-25] MEDS: BUMETANIDE 1 MG TABLET PO SCH (14:04)
--- NOTE | 2018-06-25 14:51 | PDOC PROGRESS REPORT ---
Subjective Progress Note for:: 06/25/18 Subjective:: Ms. Doherty is a 62 yr old female with a PMH of chronic diastolic heart failure , HTN, hyperlipidemia, ?COPD vs asthma and prior CVA who initially presented with worsening SOB, cough and wheezing. Chest x-ray showed pulmonary edema. She does say she has chronic pedal edema and 2-3 pillow orthopnea which she thinks is slightly progressing. She was admitted for possible COPD exacerbation. On records, it is indicated she has history of asthma and COPD but patient says she was not formally diagnosed before with either and has not had any PFT done before and has not seen a weight recorder. No acute event overnight. Patient says that her breathing has improved today but still has mild S OB. She denies chest pain. No fever or chills. Reason For Visit: COPD EXACERBATION Physical Exam Vital Signs: Temp Pulse Resp BP Pulse Ox 98.7 F 102 H 20 123/52 L 96 06/25/18 12:42 06/25/18 12:42 06/25/18 12:42 06/25/18 12:42 06/25/18 12:42 Intake & Output 06/24/18 06/25/18 06/26/18 06:59 06:59 06:59 Intake Total 350 1450 120 Output Total 1000 725 401 Balance -650 725 -281 Weight 272 lb 4.334 oz 273 lb 2.444 oz General appearance: PRESENT: no acute distress, well-developed, well-nourished Head exam: PRESENT: atraumatic, normocephalic Eye exam: PRESENT: conjunctiva pink, EOMI, PERRLA. ABSENT: scleral icterus Ear exam: PRESENT: normal external ear exam Mouth exam: PRESENT: moist, tongue midline Neck exam: ABSENT: carotid bruit, JVD, lymphadenopathy, thyromegaly Respiratory exam: PRESENT: rales - Rales on the bases. ABSENT: rhonchi, wheezes Cardiovascular exam: PRESENT: RRR. ABSENT: diastolic murmur, rubs, systolic murmur GI/Abdominal exam: PRESENT: normal bowel sounds, soft. ABSENT: distended, guarding, mass, organolmegaly, rebound, tenderness Rectal exam: PRESENT: deferred Neurological exam: PRESENT: alert, awake, oriented to person, oriented to place , oriented to time, oriented to situation, CN II-XII grossly intact. ABSENT: motor sensory deficit Results Laboratory Results: 06/24/18 05:55 06/25/18 05:02 06/24/18 06/25/18 14:00 05:02 Sodium 136.9 L 136.4 L Potassium 4.8 4.9 Chloride 98 97 L Carbon Dioxide 29 27 Anion Gap 10 12 BUN 41 H 41 H Creatinine 1.56 H 1.60 H Est GFR ( Amer) 40 L 39 L Est GFR (Non-Af Amer) 33 L 32 L Glucose 152 H 140 H Calcium 8.5 8.7 06/23/18 06/24/18 06/24/18 23:50 05:55 11:35 Troponin I 0.018 0.021 0.014 Impressions: Chest X-Ray 06/25/18 11:09 IMPRESSION: Persistent bilateral alveolar infiltrates worrisome for pulmonary edema or pneumonia. Similar compared to 06/23/2018. Assessment & Plan - Diagnosis (1) Acute hypoxemic respiratory failure Is this a current diagnosis for this admission?: Yes Plan: Likely from COPD/asthma exacerbation vs pulmonary edema. Currently saturating well on 3L via NC. (2) COPD exacerbation Is this a current diagnosis for this admission?: Yes Plan: Continue solumedrol 60 mg q8h today. Continue breathing treatments and Levaquin. Pulmonology consulted. Spirometry ordered by pulm. (3) Acute on chronic diastolic (congestive) heart failure Is this a current diagnosis for this admission?: Yes Plan: Patient's echo in 2016 shows grade 1 diastolic dysfunction. She says she has chronic pedal edema and 2-3 pillow orthopnea which she says has been progressing. Recent echo shows normal EF. (4) Acute kidney injury Is this a current diagnosis for this admission?: Yes Plan: Creatinine today is 1.6. She has a baseline Crea of 1.2. - Time Time Spent with patient: 25-34 minutes
[2018-06-25] MEDS ORDERED: LEVOFLOXACIN 500 MG/D5W RTU 500 MG/100 ML RTUPB IV SCH (15:00)
--- NOTE | 2018-06-25 15:08 | CONSULTATION REPORT E ---
Consultation Report NAME: LEATHA ATKINS : 1955 AGE: 62Y DATE: 06/24/2018 321 A TO: CLARISSA ARREDONDO M.D. FROM: MADY MORLEY M.D. Requesting Physician HISTORY OF PRESENT ILLNESS: The patient is a 62-year-old female who came in yesterday because of increased shortness of breath. The patient claimed that she has been short of breath for the last 2-3 days. Denies any fever, chills. Denies any increasing sputum production. Claimed that this morning she was coughing out yellow-green phlegm. Denies any fever, nausea, vomiting. Denies any chest pain or dizziness or syncopal episode. The patient's dyspnea was so severe last night after using the bathroom that she had to call the paramedics. The patient's oxygen saturation was noted to be at 70% on room air. The patient is currently not on oxygen at home. Had a recent sleep study done about a month ago at [facility], and she was told that it was normal, and currently she does not have any BiPAP or CPAP machine at home. The patient was subsequently placed on CPAP by the paramedics after noting her saturation to be at 70% on room air, got in touch and brought her to the emergency room. During the process of the transportation, the patient was later placed on nasal cannula, and it was noted her saturation to be about 94% on 2.5 L of oxygen. PAST MEDICAL HISTORY: 1. History of congestive heart failure. 2. Hyperlipidemia. 3. Hypertension. 4. History of asthma. 5. COPD. 6. Pneumonia. 7. Denies any seizures. 8. History of hypothyroidism. 9. History of depression. PAST SURGICAL HISTORY: 1. Hysterectomy. 2. Tubal ligation. SOCIAL HISTORY: The patient lives with family. She is a former smoker. Denies alcohol abuse or illicit drug use. FAMILY HISTORY: Mother at 74 years old with COPD and polycythemia vera. MEDICATIONS: Home medications include: 1. Xanax. 2. Lipitor. 3. Flexeril. 4. Bentyl. 5. Aricept. 6. Vitamin D. 7. Lunesta. 8. Prozac. 9. Dilaudid. 10. Xyzal. 11. Synthroid. 12. Magnesium. 13. Metolazone. 15. Nystatin. 16. Prilosec. 17. Calcium. 18. Potassium. 19. Primidone. 20. Phenergan. 21. Altace. 22. Requip. 23. Albuterol nebulizer. 24. Albuterol inhaler. 25. Bumex. 26. Arixtra. 27. Lactulose. 28. Levaquin. ALLERGIES: Include: 1. LYRICA. 2. TRAZODONE. 3. KEFLEX. 4. ERYTHROMYCIN BASE. REVIEW OF SYSTEMS: CONSTITUTIONAL: No fever or chills. EYES, EARS, NOSE, AND THROAT: No nasal discharge. HEAD AND NECK: No neck pain. No headache. No jaundice or pallor. RESPIRATION: Complaining about increased shortness of breath, severe a few hours prior to this admission. No purulent sputum production. No hemoptysis. Complained about wheezing, chest tightness. CARDIOVASCULAR: History of congestive heart failure. GASTROINTESTINAL: No nausea, vomiting, diarrhea. GENITOURINARY: No dysuria, hematuria. EXTREMITIES: Mild +1 leg edema. PHYSICAL EXAMINATION: GENERAL: The patient appeared awake, alert, oriented x3. VITAL SIGNS: Temperature of 99.1, with a T-max of 99.1, and a heart of 108, blood pressure is 109/36, respirations are 18, saturation is 90% on 0.5 L nasal cannula. EYES: No jaundice or pallor. EARS, NOSE, AND THROAT: No ear drainage noted. No nasal discharge. CHEST AND LUNGS: No wheezing. No rhonchi. No coarse crackles. CARDIOVASCULAR: S1, S2 distinct. Normal rate, regular rhythm. ABDOMEN: Flabby. Positive bowel sounds. Soft, nondistended, nontender. EXTREMITIES: No joint swelling. No cellulitis. LABORATORY: Chest x-ray done yesterday showed pulmonary infiltrate bilaterally, which was interpreted to be new; not seen on previous x-rays. Pulmonary infiltrate bilaterally, most likely pulmonary edema. Underlying interstitial lung disease cannot be completely excluded. CBC done today shows a white count of 12.7, hemoglobin is 10.9, hematocrit is 39, platelet count is 218. No bands noted. ABGs done yesterday showed pH of 7.36, PCO2 is 48.1, PO2 is 39.7, saturation is 95%. Chemistries done today showed sodium of 136.9, potassium 4.8, chloride 98, CO2 of 29, BUN is 41, creatinine is 1.56, glucose 152, and calcium is 8.5. NT-BNP done yesterday showed 500 and troponin I's were within normal limits. ASSESSMENT: 1. PULMONARY INFILTRATE - bilaterally, most likely pulmonary edema. Underlying interstitial lung disease cannot be completely excluded. 2. BRONCHIAL ASTHMA. Currently stable and not in acute bronchospasm. 3. MORBID OBESITY. 4. SEVERE HYPOXEMIA REQUIRING OXYGEN THERAPY. 5. ACUTE RESPIRATORY FAILURE REQUIRING CPAP/BIPAP THERAPY, which appears to be improved. PLAN/RECOMMENDATIONS: 1. We will do a bedside spirometry tomorrow and recommend to optimize the CHF therapy, optimize blood pressure control and diuresis and ALFRED inhibition. 2. Taper of steroids. 3. May start Advair 250 Diskhaler 1 puff b.i.d. Will follow. DICTATING PHYSICIAN: CLARISSA ARREDONDO MD,TANIA,MPH [id number] PHY#: [id number] ID: [id number] JOB#: [id number] ACCT: [id number] cc:CLARISSA ARREDONDO M.D. > MTDUrsula
[2018-06-25] MEDS: ACETAMINOPHEN 325 MG TABLET PO PRN (15:42)
[2018-06-25] MEDS: CYCLOBENZAPRINE HCL 10 MG TABLET PO PRN (15:55)
--- NOTE | 2018-06-25 16:02 | RADIOLOGY REPORT (SQ) ---
EXAM DESCRIPTION: CT CHEST WITHOUT COMPLETED DATE/TIME: 06/25/2018 3:41 pm REASON FOR STUDY: pulm edema vs pna COMPARISON: Chest films 06/25/2018, 06/23/2018, 06/04/2018 CT angio chest 02/26/2016 TECHNIQUE: CT scan performed of the chest without intravenous contrast. Images reviewed with lung, soft tissue and bone windows. Reconstructed coronal and sagittal MPR images reviewed. All images st ored on PACS. All CT scanners at this facility use dose modulation, iterative reconstruction, and/or weight based d osing when appropriate to reduce radiation dose to as low as reasonably achievable (ALARA). [facility]: Dose Right [facility]: CareDose [facility]: Dose Right [facility]: Teradose 4D [facility]: Tripvi RADIATION DOSE: CT Rad equipment meets quality standard of care and radiation dose reduction techniq ues were employed. CTDIvol: 19.5 mGy. DLP: 768 mGy-cm. mGy. LIMITATIONS: No technical limitations. FINDINGS: LUNGS AND PLEURA: Diffuse patchy ground-glass opacities are present throughout both lungs, edema versus pneumonia. This is unchanged from chest film 06/25/2018. No pleural effusions. No worrisome pulmonary nodules. HILAR AND MEDIASTINAL STRUCTURES: No identified masses or abnormal nodes. No obvious aneurysm. HEART AND VASCULAR STRUCTURES: No aneurysm. No pericardial effusion. UPPER ABDOMEN: No significant findings. Limited exam. THYROID AND OTHER SOFT TISSUES: No masses. No adenopathy. BONES: Diffuse thoracic spine degenerative disc changes HARDWARE: None in the chest. OTHER: No other significant findings. IMPRESSION: Multifocal airspace disease, edema versus pneumonia versus pneumonitis TECHNICAL DOCUMENTATION: JOB ID: [id number] Quality ID # [id number]: Final reports with documentation of one or more dose reduction techniques (e.g., Au tomated exposure control, adjustment of the mA and/or kV according to patient size, use of iterative reconstruction technique) 2010 [employer]- All Rights Reserved Reading location - IP/workstation name: [email or web address]
[2018-06-25] MEDS ORDERED: PREDNISONE 10 MG TABLET PO SCH ×2 (20:30→21:45)
[2018-06-25] MEDS: DICYCLOMINE HCL 10 MG CAPSULE PO PRN (20:37)
[2018-06-25] MEDS ORDERED: ZOLPIDEM TARTRATE 5 MG TABLET PO SCH (22:00)
[2018-06-25] MEDS: CETIRIZINE 5 MG TABLET PO SCH (22:11)
[2018-06-25] MEDS: ATORVASTATIN CALCIUM 20 MG TABLET PO SCH (22:12)
[2018-06-25] MEDS: ESZOPICLONE 3 MG PO SCH (22:13)
[2018-06-25] MEDS: TIOTROPIUM BROMIDE DPI 5 CAP/KIT (18 MCG/CAP) IH SCH (22:21)
[2018-06-26] MEDS: IPRATROPIUM/ALBUTEROL 0.5-2.5 MG/3 ML AMPUL NEB SCH ×4 (00:01→23:34)
[2018-06-26] MEDS: ALPRAZOLAM 0.5 MG TABLET PO PRN ×3 (03:18→20:34)
[2018-06-26] MEDS: HYDROMORPHONE HCL 2 MG TABLET PO PRN ×5 (03:23→20:33)
[2018-06-26] MEDS: LANSOPRAZOLE 15 MG TAB.RAP.DR PO SCH (06:13)
[2018-06-26] MEDS: LEVOTHYROXINE SODIUM 0.1 MG TABLET PO SCH (06:13)
[2018-06-26] MEDS: MORPHINE SULFATE SR 30 MG TABLET PO SCH ×3 (06:14→23:01)
[2018-06-26] MEDS ORDERED: VANCOMYCIN HCL 0 MG in DEXTROSE 5%-WATER 250 ML IV NR (08:45)
--- NOTE | 2018-06-26 10:00 | PULMONARY FUNCTION TEST ---
PULMONARY FUNCTION TEST PATIENT NAME: LEATHA ATKINS MR#: [id number] ROOM#: 321 DATE OF STUDY: 06/25/2018 AGE/GENDER: 62 F REFERRING MD: CLARISSA ARREDONDO MD Spirometry: Pre and Post bronchodilator INDICATION: Shortness of breath REPORT Spirometry showed FVC which is 58% predicted and FEV-1 of which is 45% predicted. The FEV-1/FVC ratio was 64% of predicted. IMPRESSION This spirometry showed severe obstructive airway defect, consistent with severe COPD - chronic bronchitis. Bronchial asthma cannot completely be excluded. INTERPRETING PHYSICIAN: CLARISSA ARREDONDO MD,TANIA,MPH /: [id number] TT: [id number] ID: [id number] /: [id number] TD: [id number] JOB: [id number] cc:Freddy AMOS M.D. > MTDD
[2018-06-26 10:21] LABS: ABSOLUTE EOSINOPHILS # (AUTO) 0.1 10^3/uL (0.0-0.6); ABSOLUTE LYMPHOCYTES (AUTO) 0.9 10^3/uL (0.5-4.7); ABSOLUTE MONOCYTES (AUTO) 0.9 10^3/uL (0.1-1.4); BASOPHILS % (AUTO) 0.2 % (0-2); EOSINOPHILS % (AUTO) 1.1 % (0-6); HEMATOCRIT 28.6 % (36.0-47.0); HEMOGLOBIN 9.7 g/dL (12.0-15.5); LYMPHOCYTES % (AUTO) 9.3 % (13-45); MEAN CORPUSCULAR HGB CONC 34.1 g/dL (32.0-36.0); MEAN CORPUSCULAR VOLUME 88 fl (80-97); MONOCYTES % (AUTO) 8.7 % (3-13); PLATELET COUNT 225 10^3/uL (150-450); RED BLOOD COUNT 3.25 10^6/uL (3.72-5.28); SEGMENTED NEUTROPHILS % (AUTO) 80.7 % (42-78); TOTAL CELLS COUNTED % (AUTO) 100 %; WHITE BLOOD COUNT 9.9 10^3/uL (4.0-10.5)
[2018-06-26] MEDS: FLUOXETINE HCL 20 MG CAPSULE PO SCH (11:31)
[2018-06-26] MEDS: PRENATAL VITAMIN W DHA CAPSULE PO SCH (11:31)
[2018-06-26] MEDS: FONDAPARINUX SODIUM INJ 7.5 MG/0.6 ML DISP.SYRIN SUBCUT SCH (11:32)
[2018-06-26] MEDS: PRIMIDONE 50 MG TABLET PO SCH ×3 (11:32→17:46)
[2018-06-26] MEDS: FLUTICASONE/SALMETEROL DISKUS 250-50 MCG/DOSE IH SCH ×2 (11:33→23:01)
[2018-06-26] MEDS: ROPINIROLE HCL 0.25 MG TABLET PO SCH ×2 (11:33→17:46)
[2018-06-26] MEDS: POTASSIUM CHLORIDE 10 MEQ CAPSULE.ER PO SCH (11:34)
[2018-06-26] MEDS: DONEPEZIL HCL 5 MG TABLET PO SCH (11:34)
[2018-06-26] MEDS: MAGNESIUM OXIDE 400 MG TABLET PO SCH (11:34)
[2018-06-26] MEDS: PREDNISONE 20 MG TABLET PO SCH (11:35)
[2018-06-26] MEDS: PIPERACILLIN SODIUM/TAZOBACTAM 3.375 GM in NORMAL SALINE 100 ML IV SCH ×3 (11:52→23:39)
[2018-06-26] MEDS: LEVALBUTEROL HCL NEB 1.25 MG/3 ML AMPUL NEB PRN ×2 (12:26→21:19)
[2018-06-26] MEDS: VANCOMYCIN HCL 1,500 MG in DEXTROSE 5%-WATER 250 ML IV SCH (13:26)
--- NOTE | 2018-06-26 13:53 | PROGRESS NOTE E ---
Progress Note NAME: LEATHA ATKINS : 1955 AGE: 62Y DATE: 06/25/2018 ROOM: 321 SUBJECTIVE: The patient is a 62-year-old female who came in with acute respiratory failure requiring noninvasive mechanical ventilation on BiPAP therapy. The patient improved early on the nasal cannula oxygen therapy. The patient had chest CT scan findings showing a pulmonary infiltrate bilaterally suggestive of pulmonary edema. Radiologist commented about possible pneumonic process. The patient denies any purulent sputum production. No hemoptysis. Denies any fever or chills, nausea, vomiting, diarrhea. The patient's white count has been unremarkable and there is no bandemia. Hence, pneumonia as a cause of patient's severe dyspnea is less likely, but mild pneumonic infection cannot be completely excluded. OBJECTIVE: GENERAL: The patient appears awake, alert, oriented x3. VITAL SIGNS: Temperature of 98.5, with a T-max of 98.7. Heart rate is 102. Blood pressure is 121/47, respirations 34. Saturation is 97% on 2 L nasal cannula. EYES: No jaundice or pallor. EARS, NOSE, AND THROAT: No ear drainage. No nasal discharge. CHEST AND LUNGS: No wheezing. No rhonchi. No coarse crackles. CARDIOVASCULAR: S1, S2 distinct. Normal rate, regular rhythm. ABDOMEN: Flabby. Positive bowel sounds. Soft, nondistended. EXTREMITIES: No joint swelling. No cellulitis. LABORATORY: CBC done yesterday showed white count of 12.7, hemoglobin is 9.9, hematocrit is 39, platelet count is 218. No bands noted. Chemistry done today showed sodium of 136, potassium is 4.9, chloride 97, BUN is 41, creatinine 1.6. calcium is 8.7. Again, chest CT scan done today showed bilateral pulmonary infiltrates suggestive of pulmonary edema versus pneumonia. Underlying interstitial lung disease cannot be completely excluded. Spirometry done today showed moderate obstructive airway defect suggestive of moderate COPD/chronic bronchitis. Bronchial asthma cannot be completely excluded. ASSESSMENT: 1. ACUTE RESPIRATORY FAILURE REQUIRING NONINVASIVE MECHANICAL VENTILATION ON BIPAP THERAPY, currently improved and stable and resolved. 2. ACUTE PULMONARY EDEMA, appears to be clinically improving. 3. COPD/BRONCHIAL ASTHMA, currently stable and currently not in acute bronchospasm. 4. UNDERLYING INTERSTITIAL LUNG DISEASE CONCOMITANT CANNOT BE COMPLETELY EXCLUDED. 5. MORBID OBESITY. 6. HYPOXEMIA. PLAN/RECOMMENDATIONS: 1. The patient requires a home oxygen therapy evaluation prior to discharge. The patient needs oxygen saturation on room air at rest and during exercise, and if patient desaturates to less than 87%, then patient needs oxygen saturation during exercise, more than 2 L of oxygen. 2. Will start the patient on Spiriva inhaler 1 capsule daily. 3. Continue the Advair 250 mcg diskhaler 1 puff BID daily. 4. Discontinue IV Solu-Medrol and change to prednisone 50 mg tablet p.o. daily. May consider taper in the next few days. 5. Recommend changing IV antibiotics to oral. I think the patient may be able to go home on Levaquin 500 mg tablet p.o. daily. 6. Recommend pulmonary clinic followup in 3-4 weeks following hospital discharge. 7. Recommend cardiology followup as well. DICTATING PHYSICIAN: CLARISSA ARREDONDO MD,TANIA,MPH [id number] PHY#: [id number] ID: [id number] JOB#: [id number] ACCT: [id number] cc: > MTDD
--- NOTE | 2018-06-26 14:36 | PDOC PROGRESS REPORT ---
Subjective Progress Note for:: 06/26/18 Subjective:: Ms. Doherty is a 62 yr old female with a PMH of chronic diastolic heart failure , HTN, hyperlipidemia, ?COPD vs asthma and prior CVA who initially presented with worsening SOB, cough and wheezing. Chest x-ray showed pulmonary edema. She does say she has chronic pedal edema and 2-3 pillow orthopnea which she thinks is slightly progressing. She was admitted for possible COPD vs athma exacerbation. Bedside spirometry was done and shows severe fixed obstruction consistent with severe COPD. No acute event overnight. This morning, patient appears comfortable on bed but when she went to the commode, she got short of breath and became very tachypneic. This was relieved after she sat on the bed and rested. She denies chest pain. No fever or chills. Reason For Visit: COPD EXACERBATION Physical Exam Vital Signs: Temp Pulse Resp BP Pulse Ox 97.8 F 104 H 24 H 134/73 H 92 06/26/18 11:43 06/26/18 12:26 06/26/18 12:26 06/26/18 11:43 06/26/18 12:26 Intake & Output 06/25/18 06/26/18 06/27/18 06:59 06:59 06:59 Intake Total 1450 2060 400 Output Total 725 1752 675 Balance 725 308 -275 Weight 273 lb 2.444 oz 270 lb 11.642 oz 270 lb 11.642 oz General appearance: PRESENT: mild distress, well-developed, well-nourished Head exam: PRESENT: atraumatic, normocephalic Eye exam: PRESENT: conjunctiva pink, EOMI, PERRLA. ABSENT: scleral icterus Ear exam: PRESENT: normal external ear exam Mouth exam: PRESENT: moist, tongue midline Neck exam: ABSENT: carotid bruit, JVD, lymphadenopathy, thyromegaly Respiratory exam: PRESENT: clear to auscultation allison, rales - rales on the bases , better from yesterday. ABSENT: rhonchi, wheezes Cardiovascular exam: PRESENT: RRR. ABSENT: diastolic murmur, rubs, systolic murmur Pulses: PRESENT: normal dorsalis pedis pul GI/Abdominal exam: PRESENT: normal bowel sounds, soft. ABSENT: distended, guarding, mass, organolmegaly, rebound, tenderness Results Laboratory Results: 12/06/18 09:32 06/25/18 05:02 06/26/18 09:32 WBC 9.9 RBC 3.25 L Hgb 9.7 L Hct 28.6 L MCV 88 MCH 30.0 MCHC 34.1 RDW 14.0 Plt Count 225 Seg Neutrophils % 80.7 H Lymphocytes % 9.3 L Monocytes % 8.7 Eosinophils % 1.1 Basophils % 0.2 Absolute Neutrophils 8.0 Absolute Lymphocytes 0.9 Absolute Monocytes 0.9 Absolute Eosinophils 0.1 Absolute Basophils 0.0 06/23/18 06/24/18 06/24/18 23:50 05:55 11:35 Troponin I 0.018 0.021 0.014 Impressions: Chest CT 06/25/18 00:00 IMPRESSION: Multifocal airspace disease, edema versus pneumonia versus pneumonitis Chest X-Ray 06/25/18 11:09 IMPRESSION: Persistent bilateral alveolar infiltrates worrisome for pulmonary edema or pneumonia. Similar compared to 06/23/2018. Assessment & Plan - Diagnosis (1) Acute hypoxemic respiratory failure Is this a current diagnosis for this admission?: Yes Plan: Secondary to COPD exacerbation and multifocal pneumonia. Currently saturating well on 3L via NC but patient had significant exertional dyspnea when she went to the commode. (2) HCAP (healthcare-associated pneumonia) Is this a current diagnosis for this admission?: Yes Plan: Chest CT shows multifocal pneumonia. Will switch antibiotics to broader spectrum. (3) COPD exacerbation Is this a current diagnosis for this admission?: Yes Plan: Bedside spirometry is consistent with severe COPD and not asthma. Steroids switched to PO by pulm. Continue breathing treatments and antibiotic changes as per #2. Pulmonology following. (4) Acute on chronic diastolic (congestive) heart failure Is this a current diagnosis for this admission?: Yes Plan: Patient's echo in 2016 shows grade 1 diastolic dysfunction. She says she has chronic pedal edema and 2-3 pillow orthopnea which she says has been progressing. Recent echo shows normal EF. (5) Acute kidney injury Is this a current diagnosis for this admission?: Yes Plan: Creatinine today is 1.6. She has a baseline Crea of 1.2. - Time Time Spent with patient: 25-34 minutes
[2018-06-26] MEDS: BUMETANIDE 1 MG TABLET PO SCH (15:21)
[2018-06-26] MEDS: TIOTROPIUM BROMIDE DPI 5 CAP/KIT (18 MCG/CAP) IH SCH (17:46)
[2018-06-26] MEDS: CETIRIZINE 5 MG TABLET PO SCH (23:00)
[2018-06-26] MEDS: ATORVASTATIN CALCIUM 20 MG TABLET PO SCH (23:00)
[2018-06-26] MEDS: ESZOPICLONE 3 MG PO SCH (23:01)
[2018-06-27] MEDS: PIPERACILLIN SODIUM/TAZOBACTAM 3.375 GM in NORMAL SALINE 100 ML IV SCH ×4 (05:26→23:35)
[2018-06-27] MEDS: LEVOTHYROXINE SODIUM 0.1 MG TABLET PO SCH (05:36)
[2018-06-27] MEDS: LANSOPRAZOLE 15 MG TAB.RAP.DR PO SCH (05:36)
[2018-06-27] MEDS: MORPHINE SULFATE SR 30 MG TABLET PO SCH ×3 (05:36→22:07)
[2018-06-27] MEDS: IPRATROPIUM/ALBUTEROL 0.5-2.5 MG/3 ML AMPUL NEB SCH ×2 (08:12→16:23)
[2018-06-27] MEDS: FLUTICASONE/SALMETEROL DISKUS 250-50 MCG/DOSE IH SCH ×2 (09:28→22:07)
[2018-06-27] MEDS: HYDROMORPHONE HCL 2 MG TABLET PO PRN ×4 (09:29→22:08)
[2018-06-27] MEDS: MAGNESIUM OXIDE 400 MG TABLET PO SCH (09:30)
[2018-06-27] MEDS: POTASSIUM CHLORIDE 10 MEQ CAPSULE.ER PO SCH (09:30)
[2018-06-27] MEDS: PREDNISONE 20 MG TABLET PO SCH (09:30)
[2018-06-27] MEDS: ALPRAZOLAM 0.5 MG TABLET PO PRN ×2 (09:30→17:53)
[2018-06-27] MEDS: DONEPEZIL HCL 5 MG TABLET PO SCH (09:30)
[2018-06-27] MEDS: FONDAPARINUX SODIUM INJ 7.5 MG/0.6 ML DISP.SYRIN SUBCUT SCH (09:31)
[2018-06-27] MEDS: PRENATAL VITAMIN W DHA CAPSULE PO SCH (09:32)
[2018-06-27] MEDS: FLUOXETINE HCL 20 MG CAPSULE PO SCH (09:32)
[2018-06-27] MEDS: PRIMIDONE 50 MG TABLET PO SCH ×3 (09:32→17:53)
[2018-06-27] MEDS: ROPINIROLE HCL 0.25 MG TABLET PO SCH ×2 (09:32→17:53)
[2018-06-27] MEDS: METOLAZONE 5 MG TABLET PO SCH (09:40)
[2018-06-27 12:54] LABS: ABSOLUTE EOSINOPHILS # (AUTO) 0.4 10^3/uL (0.0-0.6); ABSOLUTE LYMPHOCYTES (AUTO) 0.6 10^3/uL (0.5-4.7); ABSOLUTE MONOCYTES (AUTO) 1.2 10^3/uL (0.1-1.4); BASOPHILS % (AUTO) 0.1 % (0-2); EOSINOPHILS % (AUTO) 4.2 % (0-6); HEMOGLOBIN 9.7 g/dL (12.0-15.5); LYMPHOCYTES % (AUTO) 6.4 % (13-45); MEAN CORPUSCULAR HEMOGLOBIN 30.2 pg (27.0-33.4); MEAN CORPUSCULAR HGB CONC 34.5 g/dL (32.0-36.0); MEAN CORPUSCULAR VOLUME 88 fl (80-97); MONOCYTES % (AUTO) 12.9 % (3-13); PLATELET COUNT 220 10^3/uL (150-450); RED BLOOD COUNT 3.21 10^6/uL (3.72-5.28); RED CELL DISTRIBUTION WIDTH 13.9 % (11.5-14.0); SEGMENTED NEUTROPHILS % (AUTO) 76.4 % (42-78); TOTAL CELLS COUNTED % (AUTO) 100 %; WHITE BLOOD COUNT 9.2 10^3/uL (4.0-10.5)
[2018-06-27 13:16] LABS: ALANINE AMINOTRANSFERASE 24 U/L (9-52); ALBUMIN 3.4 g/dL (3.5-5.0); ALKALINE PHOSPHATASE 87 U/L (38-126); ANION GAP 13 (5-19); ASPARTATE AMINO TRANSFERASE 28 U/L (14-36); BILIRUBIN,DIRECT 0.4 mg/dL (0.0-0.4); BILIRUBIN,TOTAL 0.7 mg/dL (0.2-1.3); BLOOD UREA NITROGEN 30 mg/dL (7-20); CALCIUM 8.8 mg/dL (8.4-10.2); CARBON DIOXIDE 28 mmol/L (22-30); CHLORIDE 96 mmol/L (98-107); GLUCOSE 115 mg/dL (75-110); POTASSIUM 4.3 mmol/L (3.6-5.0); SODIUM 136.7 mmol/L (137-145); TOTAL PROTEIN 6.4 g/dL (6.3-8.2)
[2018-06-27] MEDS: DICYCLOMINE HCL 10 MG CAPSULE PO PRN (13:31)
[2018-06-27] MEDS: VANCOMYCIN HCL 1,500 MG in DEXTROSE 5%-WATER 250 ML IV SCH (13:32)
[2018-06-27] MEDS: BUMETANIDE 1 MG TABLET PO SCH (13:37)
[2018-06-27] MEDS ORDERED: FUROSEMIDE INJ/PF 40 MG/4 ML SDV IV ONE (14:26)
--- NOTE | 2018-06-27 16:29 | PDOC PROGRESS REPORT ---
Subjective Progress Note for:: 06/27/18 Subjective:: Ms. Doherty is a 62 yr old female with a PMH of chronic diastolic heart failure , HTN, hyperlipidemia, ?COPD vs asthma and prior CVA who initially presented with worsening SOB, cough and wheezing. Chest x-ray showed pulmonary edema. She does say she has chronic pedal edema and 2-3 pillow orthopnea which she thinks is slightly progressing. She was admitted for possible COPD vs athma exacerbation. Bedside spirometry was done and shows severe fixed obstruction consistent with severe COPD. No acute event overnight. Patient went to bedside commode again this morning as she refused to use the bedpan and she got short of breath and became very tachypneic again. At baseline, she is able to walk form the bedroom to the living room before she gets short of breath. She denies chest pain. No fever or chills. Reason For Visit: COPD EXACERBATION Physical Exam Vital Signs: Temp Pulse Resp BP Pulse Ox 99.3 F 108 H 23 H 143/77 H 100 06/27/18 12:40 06/27/18 14:00 06/27/18 12:40 06/27/18 12:40 06/27/18 12:40 Intake & Output 06/26/18 06/27/18 06/28/18 06:59 06:59 06:59 Intake Total 2060 1675 550 Output Total 1752 2175 750 Balance 308 -500 -200 Weight 270 lb 11.642 oz 269 lb 10.005 oz General appearance: PRESENT: mild distress, obese Head exam: PRESENT: atraumatic, normocephalic Eye exam: PRESENT: conjunctiva pink, EOMI, PERRLA. ABSENT: scleral icterus Ear exam: PRESENT: normal external ear exam Mouth exam: PRESENT: moist, tongue midline Neck exam: ABSENT: carotid bruit, JVD, lymphadenopathy, thyromegaly Respiratory exam: PRESENT: rales - minimal rales on the bases. ABSENT: rhonchi , wheezes Cardiovascular exam: PRESENT: RRR. ABSENT: diastolic murmur, rubs, systolic murmur Pulses: PRESENT: normal dorsalis pedis pul GI/Abdominal exam: PRESENT: normal bowel sounds, soft. ABSENT: distended, guarding, mass, organolmegaly, rebound, tenderness Rectal exam: PRESENT: deferred Neurological exam: PRESENT: alert, awake, oriented to person, oriented to place , oriented to time, oriented to situation, CN II-XII grossly intact. ABSENT: motor sensory deficit Results Laboratory Results: 06/27/18 12:34 06/27/18 12:34 06/27/18 06/27/18 12:34 12:34 WBC 9.2 RBC 3.21 L Hgb 9.7 L Hct 28.0 L MCV 88 MCH 30.2 MCHC 34.5 RDW 13.9 Plt Count 220 Seg Neutrophils % 76.4 Lymphocytes % 6.4 L Monocytes % 12.9 Eosinophils % 4.2 Basophils % 0.1 Absolute Neutrophils 7.0 Absolute Lymphocytes 0.6 Absolute Monocytes 1.2 Absolute Eosinophils 0.4 Absolute Basophils 0.0 Sodium 136.7 L Potassium 4.3 Chloride 96 L Carbon Dioxide 28 Anion Gap 13 BUN 30 H Creatinine 1.39 H Est GFR ( Amer) 46 L Est GFR (Non-Af Amer) 38 L Glucose 115 H Calcium 8.8 Total Bilirubin 0.7 AST 28 ALT 24 Alkaline Phosphatase 87 Total Protein 6.4 Albumin 3.4 L 06/25/18 07:15 Sputum Gram Stain - Final 06/25/18 07:15 Sputum Sputum Culture - Final C.albicans/C.dubliniensis Normal Yani 06/23/18 06/24/18 06/24/18 23:50 05:55 11:35 Troponin I 0.018 0.021 0.014 Impressions: Chest CT 06/25/18 00:00 IMPRESSION: Multifocal airspace disease, edema versus pneumonia versus pneumonitis Chest X-Ray 06/25/18 11:09 IMPRESSION: Persistent bilateral alveolar infiltrates worrisome for pulmonary edema or pneumonia. Similar compared to 06/23/2018. Assessment & Plan - Diagnosis (1) Acute hypoxemic respiratory failure Is this a current diagnosis for this admission?: Yes Plan: Secondary to COPD exacerbation and multifocal pneumonia. Currently saturating well on 3L via NC but patient had significant exertional dyspnea when she went to the commode again this morning. Advised to use the bedpan for now. (2) HCAP (healthcare-associated pneumonia) Is this a current diagnosis for this admission?: Yes Plan: Chest CT shows multifocal pneumonia. Continue broad spectrum IV antibiotics for 2 more days. (3) COPD exacerbation Is this a current diagnosis for this admission?: Yes Plan: Bedside spirometry is consistent with severe COPD and not asthma. Steroids switched to PO by pulm. Continue breathing treatments and antibiotic changes as per #2. Pulmonology following. (4) Acute on chronic diastolic (congestive) heart failure Is this a current diagnosis for this admission?: Yes Plan: Patient's echo in 2016 shows grade 1 diastolic dysfunction. She says she has chronic pedal edema and 2-3 pillow orthopnea which she says has been progressing. Recent echo shows normal EF. CT does also show congestion. Continue bumex and metolazone. Will give an extra dose of IV lasix 40 mg today as her renal function has improved. (5) Acute kidney injury Is this a current diagnosis for this admission?: Yes Plan: Improved. Crea today is 1.3. She has a baseline Crea of 1.2. - Time Time Spent with patient: 25-34 minutes
[2018-06-27] MEDS: TIOTROPIUM BROMIDE DPI 5 CAP/KIT (18 MCG/CAP) IH SCH (17:54)
[2018-06-27] MEDS: LEVALBUTEROL HCL NEB 1.25 MG/3 ML AMPUL NEB PRN (20:18)
[2018-06-27] MEDS: ATORVASTATIN CALCIUM 20 MG TABLET PO SCH (22:07)
[2018-06-27] MEDS: ESZOPICLONE 3 MG PO SCH (22:09)
[2018-06-27] MEDS: CETIRIZINE 5 MG TABLET PO SCH (22:09)
[2018-06-28] MEDS: IPRATROPIUM/ALBUTEROL 0.5-2.5 MG/3 ML AMPUL NEB SCH ×4 (00:24→20:05)
[2018-06-28 05:01] LABS: ABSOLUTE EOSINOPHILS # (AUTO) 0.6 10^3/uL (0.0-0.6); ABSOLUTE LYMPHOCYTES (AUTO) 0.9 10^3/uL (0.5-4.7); ABSOLUTE MONOCYTES (AUTO) 1.5 10^3/uL (0.1-1.4); ABSOLUTE NEUT (AUTO) 6.8 10^3/uL (1.7-8.2); BASOPHILS % (AUTO) 0.2 % (0-2); EOSINOPHILS % (AUTO) 6.4 % (0-6); HEMATOCRIT 27.2 % (36.0-47.0); HEMOGLOBIN 9.3 g/dL (12.0-15.5); MEAN CORPUSCULAR HGB CONC 34.3 g/dL (32.0-36.0); MEAN CORPUSCULAR VOLUME 87 fl (80-97); MONOCYTES % (AUTO) 15.6 % (3-13); PLATELET COUNT 218 10^3/uL (150-450); RED BLOOD COUNT 3.11 10^6/uL (3.72-5.28); RED CELL DISTRIBUTION WIDTH 14.1 % (11.5-14.0); SEGMENTED NEUTROPHILS % (AUTO) 68.8 % (42-78); TOTAL CELLS COUNTED % (AUTO) 100 %; WHITE BLOOD COUNT 9.9 10^3/uL (4.0-10.5)
[2018-06-28 05:27] LABS: ANION GAP 14 (5-19); BLOOD UREA NITROGEN 32 mg/dL (7-20); CALCIUM 8.7 mg/dL (8.4-10.2); CARBON DIOXIDE 26 mmol/L (22-30); CHLORIDE 96 mmol/L (98-107); GLUCOSE 117 mg/dL (75-110); POTASSIUM 3.7 mmol/L (3.6-5.0); SODIUM 135.9 mmol/L (137-145)
[2018-06-28] MEDS: PIPERACILLIN SODIUM/TAZOBACTAM 3.375 GM in NORMAL SALINE 100 ML IV SCH ×4 (05:48→23:15)
[2018-06-28] MEDS: MORPHINE SULFATE SR 30 MG TABLET PO SCH ×2 (05:50→21:36)
[2018-06-28] MEDS: LEVOTHYROXINE SODIUM 0.1 MG TABLET PO SCH (05:50)
[2018-06-28] MEDS: LANSOPRAZOLE 15 MG TAB.RAP.DR PO SCH (05:50)
[2018-06-28] MEDS: ALPRAZOLAM 0.5 MG TABLET PO PRN (07:41)
[2018-06-28] MEDS: HYDROMORPHONE HCL 2 MG TABLET PO PRN (07:41)
--- NOTE | 2018-06-28 08:29 | RADIOLOGY REPORT (SQ) ---
EXAM DESCRIPTION: CHEST SINGLE VIEW COMPLETED DATE/TIME: 06/28/2018 7:46 am REASON FOR STUDY: assess congestion COMPARISON: 06/25/2018 06/23/2018 EXAM PARAMETERS: NUMBER OF VIEWS: One view. TECHNIQUE: Single frontal radiographic view of the chest acquired. RADIATION DOSE: NA LIMITATIONS: None. FINDINGS: LUNGS AND PLEURA: Diffuse peripheral parenchymal opacities. Similar in appearance to prev ious. MEDIASTINUM AND HILAR STRUCTURES: No masses. Contour normal. HEART AND VASCULAR STRUCTURES: Heart slightly enlarged. Mild prominence of central vasculature. BONES: No acute findings. HARDWARE: None in the chest. OTHER: No other significant finding. IMPRESSION: Diffuse peripheral parenchymal opacities without pleural effusions. More likely infecti ous/ inflammatory. TECHNICAL DOCUMENTATION: JOB ID: [id number] [employer]- All Rights Reserved Reading location - IP/workstation name: [email or web address]
[2018-06-28] MEDS: PRENATAL VITAMIN W DHA CAPSULE PO SCH (10:54)
[2018-06-28] MEDS: MAGNESIUM OXIDE 400 MG TABLET PO SCH (10:54)
[2018-06-28] MEDS: ROPINIROLE HCL 0.25 MG TABLET PO SCH ×2 (10:54→18:01)
[2018-06-28] MEDS: FLUTICASONE/SALMETEROL DISKUS 250-50 MCG/DOSE IH SCH ×2 (10:55→21:36)
[2018-06-28] MEDS: FLUOXETINE HCL 20 MG CAPSULE PO SCH (10:55)
[2018-06-28] MEDS: DONEPEZIL HCL 5 MG TABLET PO SCH (10:55)
[2018-06-28] MEDS: POTASSIUM CHLORIDE 10 MEQ CAPSULE.ER PO SCH (10:55)
[2018-06-28] MEDS: PRIMIDONE 50 MG TABLET PO SCH ×3 (10:56→18:01)
[2018-06-28] MEDS: PREDNISONE 20 MG TABLET PO SCH (10:56)
[2018-06-28] MEDS: BUMETANIDE 1 MG TABLET PO SCH (10:56)
[2018-06-28] MEDS: FONDAPARINUX SODIUM INJ 7.5 MG/0.6 ML DISP.SYRIN SUBCUT SCH (10:57)
[2018-06-28] MEDS: NYSTATIN TOPICAL POWDER 15 GM TOP PRN (10:58)
[2018-06-28] MEDS: CYCLOBENZAPRINE HCL 10 MG TABLET PO PRN (11:07)
[2018-06-28] MEDS ORDERED: FUROSEMIDE INJ/PF 40 MG/4 ML SDV IV ONE (12:30)
[2018-06-28] MEDS: VANCOMYCIN HCL 1,500 MG in DEXTROSE 5%-WATER 250 ML IV SCH (13:38)
--- NOTE | 2018-06-28 15:19 | PDOC PROGRESS REPORT ---
Subjective Progress Note for:: 06/28/18 Subjective:: Ms. Doherty is a 62 yr old female with a PMH of chronic diastolic heart failure , HTN, hyperlipidemia, opiate dependence, COPD and prior CVA who initially presented with worsening SOB, cough and wheezing. Chest x-ray showed pulmonary edema. She does say she has chronic pedal edema and 2-3 pillow orthopnea which she thinks is slightly progressing. She was admitted for possible COPD vs athma exacerbation. Bedside spirometry was done and shows severe fixed obstruction consistent with severe COPD. No acute event overnight. Patient says that her breathing has only slightly improved from yesterday. She has not been allowed to ambulate it as she developed significant shortness of breath when she went to the bedside commode yesterday. At baseline, she is able to walk form the bedroom to the living room before she gets short of breath. She denies chest pain. She says she has been coughing a lot more greenish sputum now. No fever or chills. Reason For Visit: COPD EXACERBATION Physical Exam Vital Signs: Temp Pulse Resp BP Pulse Ox 99.2 F 94 18 120/61 100 06/28/18 11:52 06/28/18 11:52 06/28/18 11:52 06/28/18 11:52 06/28/18 11:52 Intake & Output 06/27/18 06/28/18 06/29/18 06:59 06:59 06:59 Intake Total 1675 1172 200 Output Total 2175 3625 400 Balance -500 -2453 -200 Weight 269 lb 10.005 oz 268 lb 1.314 oz General appearance: PRESENT: no acute distress, well-developed, well-nourished Head exam: PRESENT: atraumatic, normocephalic Eye exam: PRESENT: conjunctiva pink, EOMI, PERRLA. ABSENT: scleral icterus Ear exam: PRESENT: normal external ear exam Mouth exam: PRESENT: moist, tongue midline Neck exam: ABSENT: carotid bruit, JVD, lymphadenopathy, thyromegaly Respiratory exam: PRESENT: rales - minimal rales on the bases. ABSENT: rhonchi , wheezes Results Laboratory Results: 06/28/18 04:31 06/28/18 04:31 06/28/18 06/28/18 04:31 04:31 WBC 9.9 RBC 3.11 L Hgb 9.3 L Hct 27.2 L MCV 87 MCH 30.0 MCHC 34.3 RDW 14.1 H Plt Count 218 Seg Neutrophils % 68.8 Lymphocytes % 9.0 L Monocytes % 15.6 H Eosinophils % 6.4 H Basophils % 0.2 Absolute Neutrophils 6.8 Absolute Lymphocytes 0.9 Absolute Monocytes 1.5 H Absolute Eosinophils 0.6 Absolute Basophils 0.0 Sodium 135.9 L Potassium 3.7 Chloride 96 L Carbon Dioxide 26 Anion Gap 14 BUN 32 H Creatinine 1.41 H Est GFR ( Amer) 45 L Est GFR (Non-Af Amer) 38 L Glucose 117 H Calcium 8.7 06/25/18 07:15 Sputum Gram Stain - Final 06/25/18 07:15 Sputum Sputum Culture - Final C.albicans/C.dubliniensis Normal Yani 06/23/18 06/24/18 06/24/18 23:50 05:55 11:35 Troponin I 0.018 0.021 0.014 Impressions: Chest CT 06/25/18 00:00 IMPRESSION: Multifocal airspace disease, edema versus pneumonia versus pneumonitis Chest X-Ray 06/28/18 06:00 IMPRESSION: Diffuse peripheral parenchymal opacities without pleural effusions. More likely infectious/ inflammatory. Assessment & Plan - Diagnosis (1) Acute hypoxemic respiratory failure Is this a current diagnosis for this admission?: Yes Plan: Secondary to COPD exacerbation and multifocal pneumonia. Currently saturating well on 3L via NC but patient had significant exertional dyspnea when she went to the commode ON 06/27 AND 06/28. She has been kept on strict bedrest for now. Advised to use the bedpan for now. (2) HCAP (healthcare-associated pneumonia) Is this a current diagnosis for this admission?: Yes Plan: Chest CT shows multifocal pneumonia. Continue broad spectrum IV antibiotics for now. Patient is having increasingly productive cough with greenish sputum. Will repeat another sputum culture. (3) COPD exacerbation Is this a current diagnosis for this admission?: Yes Plan: Bedside spirometry is consistent with severe COPD and not asthma. Continue prednisone. Continue breathing treatments and antibiotic changes as per #2. Pulmonology following. (4) Acute on chronic diastolic (congestive) heart failure Is this a current diagnosis for this admission?: Yes Plan: Patient's echo in 2016 shows grade 1 diastolic dysfunction. She says she has chronic pedal edema and 2-3 pillow orthopnea which she says has been progressing. Recent echo shows normal EF. CT does also show congestion. Continue bumex and metolazone. She did receive IV lasix 40 mg yesterday. Will give her another dose of 40 mg IV Lasix today. (5) Acute kidney injury Is this a current diagnosis for this admission?: Yes Plan: Improved. Crea today is 1.4. She has a baseline Crea of 1.2. (6) Opioid dependence Is this a current diagnosis for this admission?: Yes Plan: Patient is on a lot of narcotics at home for her chronic pain including chronic back pain. Discussed in length with patient that she appeared slightly lethargic when I came in this morning after she was given Dilaudid. Discussed the risks of being on lot of narcotics and being on Xanax as well. Will decrease her Xanax to qhs as needed. Will also decrease MS Contin. Will discontinue PO Dilaudid. Patient is agreeable to this plan. - Time Time Spent with patient: 25-34 minutes
[2018-06-28] MEDS: AZITHROMYCIN 250 MG TABLET PO SCH (18:01)
[2018-06-28] MEDS: TIOTROPIUM BROMIDE DPI 5 CAP/KIT (18 MCG/CAP) IH SCH (18:02)
[2018-06-28] MEDS ORDERED: ALPRAZOLAM 0.5 MG TABLET PO PRN (19:33)
[2018-06-28] MEDS: ACETYLCYSTEINE 10% NEB 400 MG/4 ML VIAL NEB SCH (20:05)
[2018-06-28] MEDS: CETIRIZINE 5 MG TABLET PO SCH (21:35)
[2018-06-28] MEDS: RAMIPRIL 2.5 MG CAPSULE PO SCH (21:35)
[2018-06-28] MEDS: ALPRAZOLAM 0.5 MG TABLET PO SCH (21:35)
[2018-06-28] MEDS: ATORVASTATIN CALCIUM 20 MG TABLET PO SCH (21:36)
[2018-06-28] MEDS: ESZOPICLONE 3 MG PO SCH (21:36)
[2018-06-29] MEDS: IPRATROPIUM/ALBUTEROL 0.5-2.5 MG/3 ML AMPUL NEB SCH ×4 (02:45→19:23)
[2018-06-29] MEDS: ACETYLCYSTEINE 10% NEB 400 MG/4 ML VIAL NEB SCH ×4 (02:45→19:23)
[2018-06-29] MEDS: LANSOPRAZOLE 15 MG TAB.RAP.DR PO SCH (05:22)
[2018-06-29] MEDS: LEVOTHYROXINE SODIUM 0.1 MG TABLET PO SCH (05:22)
[2018-06-29] MEDS: PIPERACILLIN SODIUM/TAZOBACTAM 3.375 GM in NORMAL SALINE 100 ML IV SCH ×4 (05:27→23:09)
[2018-06-29 06:05] LABS: ANION GAP 11 (5-19); BLOOD UREA NITROGEN 32 mg/dL (7-20); CALCIUM 8.6 mg/dL (8.4-10.2); CARBON DIOXIDE 32 mmol/L (22-30); CHLORIDE 95 mmol/L (98-107); GLUCOSE 103 mg/dL (75-110); POTASSIUM 3.3 mmol/L (3.6-5.0); SODIUM 137.5 mmol/L (137-145)
--- NOTE | 2018-06-29 07:07 | PROGRESS NOTE E ---
Progress Note NAME: LEATHA ATKINS : 1955 AGE: 62Y DATE: 06/28/2018 ROOM: 316 SUBJECTIVE: The patient is a 62-year-old female who came in with severe dyspnea and acute respiratory failure requiring BiPAP therapy due to pulmonary edema, possible concomitant pneumonia, and possible concomitant interstitial lung disease. The patient claimed that she is coughing yellow-green phlegm this morning. We will send a sputum for culture. There is no fever over the last 24-48 hours. White count has been stable and normal over the last 2-3 days. Denies any nausea, vomiting, chest pain. No acute worsening of dyspnea. No abdominal pain. No diarrhea. OBJECTIVE: GENERAL: The patient is awake, alert, afebrile, coherent, oriented x3. VITAL SIGNS: Temperature is 99.4, with a T-max of 99.7. Pulse rate is 92, blood pressure is 126/57, respiratory rate of 16, and saturation is 92% on 3 L nasal cannula. EYES: No jaundice or pallor. EARS, NOSE, AND THROAT: No ear drainage noted. No nasal discharge. CHEST AND LUNGS: No wheezing. No rhonchi. No coarse crackles. CARDIOVASCULAR: S1, S2 distinct. Normal rate, regular rhythm. ABDOMEN: Flabby. Positive bowel sounds. Soft, nondistended, nontender. EXTREMITIES: No joint swelling. No cellulitis. LABORATORY: CBC done today showed a white count of 9.9, hemoglobin 9.3, hematocrit 37.2, platelet count is 218. Chemistry done today showed sodium is 135.9, potassium is 3.7, chloride is 96, CO2 is 26, BUN is 32, creatinine is 1.41, glucose 117, and calcium is 8.7. The chest x-ray done today showed bilateral pulmonary infiltrates, which seem to be getting better on the right side. ASSESSMENT: 1. COPD/BRONCHIAL ASTHMA WITH SEVERE OBSTRUCTIVE AIRWAY DEFECT. Currently, not in severe bronchospasm. 2. PNEUMONIA, BILATERAL. Seems to be improving white count. There is no leukocytosis and no fever. 3. PULMONARY EDEMA MOST LIKELY, BASED ON THE RECENT CHEST CT SCAN, DESPITE NORMAL EJECTION FRACTION ON ECHOCARDIOGRAM. 4. INTERSTITIAL LUNG DISEASE - POSSIBLE. We will plan to follow patient in the pulmonary clinic for possible repeat chest CT scan a few weeks later and a possible transbronchial lung biopsy. 5. SEVERE OBESITY. 6. EXERTIONAL DYSPNEA. 7. HYPOXEMIA, seems to be improving. PLAN/RECOMMENDATIONS: 1. Continue antibiotics. 2. Do a sputum culture today. 3. May require a possible cardiac evaluation for the pulmonary edema. 4. Will continue the Advair 250 and Spiriva inhaler and the albuterol inhaler p.r.n. and albuterol nebulizer p.r.n. 5. The patient will need home oxygen therapy evaluation. 6. The patient will need oxygen saturation at rest with room air and during exercise, and if patient desaturates below 87% during physical activity or even at rest, then we need to determine the oxygen saturation with patient on 2 L oxygen nasal cannula, and we have to titrate the oxygen through the nasal cannula to keep saturation 91-94% if patient is walking. DICTATING PHYSICIAN: CLARISSA ARREDONDO MD,TANIA,MPH [id number] PHY#: [id number] ID: [id number] JOB#: [id number] ACCT: [id number] cc: > MTDD
[2018-06-29] MEDS ORDERED: ERGOCALCIFEROL (VITAMIN D2) 50000 UNIT (1.25 MG) CAPSULE PO SCH (08:00)
[2018-06-29] MEDS: FLUOXETINE HCL 20 MG CAPSULE PO SCH (10:36)
[2018-06-29] MEDS: AZITHROMYCIN 250 MG TABLET PO SCH (10:37)
[2018-06-29] MEDS: MAGNESIUM OXIDE 400 MG TABLET PO SCH (10:37)
[2018-06-29] MEDS: ROPINIROLE HCL 0.25 MG TABLET PO SCH ×2 (10:37→17:21)
[2018-06-29] MEDS: MORPHINE SULFATE SR 30 MG TABLET PO SCH ×2 (10:37→22:28)
[2018-06-29] MEDS: PREDNISONE 20 MG TABLET PO SCH (10:37)
[2018-06-29] MEDS: DONEPEZIL HCL 5 MG TABLET PO SCH (10:37)
[2018-06-29] MEDS: POTASSIUM CHLORIDE 10 MEQ CAPSULE.ER PO SCH (10:37)
[2018-06-29] MEDS: PRIMIDONE 50 MG TABLET PO SCH ×3 (10:37→17:21)
[2018-06-29] MEDS: PRENATAL VITAMIN W DHA CAPSULE PO SCH (10:37)
[2018-06-29] MEDS: FONDAPARINUX SODIUM INJ 7.5 MG/0.6 ML DISP.SYRIN SUBCUT SCH (10:38)
[2018-06-29] MEDS: BUMETANIDE 1 MG TABLET PO SCH (10:38)
[2018-06-29] MEDS: FLUTICASONE/SALMETEROL DISKUS 250-50 MCG/DOSE IH SCH ×2 (10:38→22:35)
--- NOTE | 2018-06-29 12:02 | PDOC PROGRESS REPORT ---
Subjective Progress Note for:: 06/29/18 Subjective:: Ms. Doherty is a 62 yr old female with a PMH of chronic diastolic heart failure , HTN, hyperlipidemia, opiate dependence, COPD and prior CVA who initially presented with worsening SOB, cough and wheezing. Chest x-ray showed pulmonary edema. She does say she has chronic pedal edema and 2-3 pillow orthopnea which she thinks is slightly progressing. She was admitted for possible COPD vs athma exacerbation. Bedside spirometry was done and shows severe fixed obstruction consistent with severe COPD. No acute event overnight. She says she continues to have exertional dyspnea and that her breathing has slightly improved compared to yesterday. At baseline , she is able to walk form the bedroom to the living room before she gets short of breath. Discussed about going to rehab. Explained that with her severe COPD and multifocal, bilateral pnuemonia with some pulmonary congestion, it will take longer for her to recover and get back to he usual baseline. She is amenable to going to rehab. She denies chest pain. She says she has not been having the productive anymore. No fever or chills. We discussed her chronic pain regimen again. She was able to sleep well last night. Emphasized that she has been able to tolerate decrease in the dose of her chronic opiates and Xanax. No recurrence of lethargy after adjustment of her pain meds and Xanax dose and frequency yesterday. She verbalized understanding. Reason For Visit: COPD EXACERBATION Physical Exam Vital Signs: Temp Pulse Resp BP Pulse Ox 98.2 F 99 20 119/59 L 96 06/29/18 08:58 06/29/18 08:58 06/29/18 08:58 06/29/18 08:58 06/29/18 08:58 Intake & Output 06/28/18 06/29/18 06/30/18 06:59 06:59 06:59 Intake Total 1172 950 Output Total 2402 7460 Balance -2453 -2000 Weight 268 lb 1.314 oz 263 lb 0.183 oz General appearance: PRESENT: no acute distress, obese Head exam: PRESENT: atraumatic, normocephalic Eye exam: PRESENT: conjunctiva pink, EOMI, PERRLA. ABSENT: scleral icterus Ear exam: PRESENT: normal external ear exam Mouth exam: PRESENT: moist, tongue midline Neck exam: ABSENT: carotid bruit, JVD, lymphadenopathy, thyromegaly Respiratory exam: PRESENT: rhonchi - minimal rhonchi on the bases. ABSENT: rales, wheezes Cardiovascular exam: PRESENT: RRR. ABSENT: diastolic murmur, rubs, systolic murmur Pulses: PRESENT: normal dorsalis pedis pul GI/Abdominal exam: PRESENT: normal bowel sounds, soft. ABSENT: distended, guarding, mass, organolmegaly, rebound, tenderness Rectal exam: PRESENT: deferred Neurological exam: PRESENT: alert, awake, oriented to person, oriented to place , oriented to time, oriented to situation, CN II-XII grossly intact. ABSENT: motor sensory deficit Results Laboratory Results: 06/28/18 04:31 06/29/18 05:09 06/29/18 05:09 Sodium 137.5 Potassium 3.3 L Chloride 95 L Carbon Dioxide 32 H Anion Gap 11 BUN 32 H Creatinine 1.47 H Est GFR ( Amer) 43 L Est GFR (Non-Af Amer) 36 L Glucose 103 Calcium 8.6 06/23/18 06/24/18 06/24/18 23:50 05:55 11:35 Troponin I 0.018 0.021 0.014 Impressions: Chest CT 06/25/18 00:00 IMPRESSION: Multifocal airspace disease, edema versus pneumonia versus pneumonitis Chest X-Ray 06/28/18 06:00 IMPRESSION: Diffuse peripheral parenchymal opacities without pleural effusions. More likely infectious/ inflammatory. Assessment & Plan - Diagnosis (1) Acute hypoxemic respiratory failure Is this a current diagnosis for this admission?: Yes Plan: Secondary to COPD exacerbation and multifocal pneumonia and pulmonary congestion. Currently saturating well on 3L via NC but continues to have exertional dyspnea with slow but gradual improvement. Will have PT start working with her today. (2) HCAP (healthcare-associated pneumonia) Is this a current diagnosis for this admission?: Yes Plan: Chest CT shows bilateral, multifocal pneumonia with some congestion. Continue broad spectrum IV antibiotics for now. She says her productive cough has resolved. (3) COPD exacerbation Is this a current diagnosis for this admission?: Yes Plan: Bedside spirometry is consistent with severe COPD and not asthma. Continue prednisone. Continue breathing treatments and antibiotic changes as per #2. Pulmonology following. (4) Acute on chronic diastolic (congestive) heart failure Is this a current diagnosis for this admission?: Yes Plan: Patient's echo in 2016 shows grade 1 diastolic dysfunction. She says she has chronic pedal edema and 2-3 pillow orthopnea which she says has been progressing. Recent echo shows normal EF. CT does also show congestion. Patient has been getting 40 mg of IV Lasix in the past 3 days. Will hold off on IV Lasix today. Continue bumex and metolazone. (5) Acute kidney injury Is this a current diagnosis for this admission?: Yes Plan: Improved. Crea today is 1.4. She has a baseline Crea of 1.2. (6) Opioid dependence Is this a current diagnosis for this admission?: Yes Plan: Patient is on a lot of narcotics at home for her chronic pain including chronic back pain. Discussed in length with patient that she appeared slightly lethargic when I saw her on 06/28/18 after she was given Dilaudid. Discussed the risks of being on lot of narcotics and being on Xanax as well. Decrease her Xanax to qhs. Also decreaseed MS Contin. Discontinue PO Dilaudid. We discussed her chronic pain regimen again today. She was able to sleep well last night. Emphasized that she has been able to tolerate decrease in the dose of her chronic opiates and Xanax. No recurrence of lethargy after adjustment of her pain meds and Xanax dose and frequency yesterday. She verbalized understanding. - Time Time Spent with patient: 25-34 minutes
[2018-06-29 13:41] LABS: VANCOMYCIN,TROUGH 19.9 ug/mL (5.0-20.0)
[2018-06-29] MEDS: VANCOMYCIN HCL 1,500 MG in DEXTROSE 5%-WATER 250 ML IV SCH (13:46)
[2018-06-29] MEDS: TIOTROPIUM BROMIDE DPI 5 CAP/KIT (18 MCG/CAP) IH SCH (17:21)
[2018-06-29] MEDS: BENZOCAINE/MENTHOL SORE THROAT LOZENGE BUCCAL PRN ×2 (17:21→20:41)
[2018-06-29] MEDS: CYCLOBENZAPRINE HCL 10 MG TABLET PO PRN (17:25)
[2018-06-29] MEDS: ALPRAZOLAM 0.5 MG TABLET PO SCH (22:26)
[2018-06-29] MEDS: ATORVASTATIN CALCIUM 20 MG TABLET PO SCH (22:29)
[2018-06-29] MEDS: ESZOPICLONE 3 MG PO SCH (22:35)
[2018-06-29] MEDS: RAMIPRIL 2.5 MG CAPSULE PO SCH (22:36)
[2018-06-29] MEDS: CETIRIZINE 5 MG TABLET PO SCH (22:56)
[2018-06-30] MEDS: IPRATROPIUM/ALBUTEROL 0.5-2.5 MG/3 ML AMPUL NEB SCH ×4 (02:19→19:36)
[2018-06-30] MEDS ORDERED: ALPRAZOLAM 0.5 MG TABLET PO PRN (03:00)
[2018-06-30] MEDS: PIPERACILLIN SODIUM/TAZOBACTAM 3.375 GM in NORMAL SALINE 100 ML IV SCH ×2 (05:58→11:46)
[2018-06-30] MEDS: LEVOTHYROXINE SODIUM 0.1 MG TABLET PO SCH (05:58)
[2018-06-30] MEDS: LANSOPRAZOLE 15 MG TAB.RAP.DR PO SCH (05:58)
--- NOTE | 2018-06-30 08:00 | PROGRESS NOTE E ---
Progress Note NAME: LEATHA ATKINS : 1955 AGE: 62Y DATE: 06/29/2018 ROOM: 530 SUBJECTIVE: The patient is a 62-year-old female who came in with acute respiratory failure requiring BiPAP therapy due to pulmonary edema, pneumonia, and possible interstitial lung disease, bronchial asthma, and COPD. Patient currently has PICC line. Patient is complaining of some whitish-yellowish sputum production noted today. She has had a sputum culture. Denies any nausea, vomiting, hemoptysis, any chest pain. No diarrhea. OBJECTIVE: GENERAL: The patient is awake, alert, afebrile, coherent, oriented x3. VITAL SIGNS: Temperature is 98.3, with a T-max of 98.6. Heart rate is 93, blood pressure is 151/92, respiratory rate of 18, and saturation is 96% on 3 L nasal cannula. EYES: No jaundice or pallor. EARS, NOSE, AND THROAT: No ear drainage noted. No nasal discharge. CHEST AND LUNGS: No wheezing. No rhonchi. No coarse crackles. CARDIOVASCULAR: S1, S2 distinct. Normal rate, regular rhythm. ABDOMEN: Flabby. Positive bowel sounds. Soft, nondistended, nontender. EXTREMITIES: No joint swelling noted. LABORATORY: CBC done today showed initial white count of 9.9, hemoglobin 9.3, hematocrit 37.2, platelet count is 218. Chemistry done today showed sodium is 137, potassium is 3.3, chloride is 95, CO2 is 32, BUN is 30, creatinine is 1.47, glucose 103, and calcium is 8.6. ASSESSMENT: 1. Acute respiratory failure. Improved, resolved. 2. Pulmonary edema, currently stable and improved. 3. Pneumonia, also currently improved. There is no leukocytosis, no fever spikes. Scant sputum production. Breathing is improved. 4. COPD/BRONCHIAL ASTHMA. Currently stable and no in acute bronchospasm. 5. INTERSTITIAL LUNG DISEASE POSSIBLE. May need to follow up with pulmonary clinic following hospital discharge. 6. Hypoxemia. Patient required home oxygen therapy inhalation prior to discharge patient may need oxygen during exercise and sleep. 7. SEVERE OBESITY. Recommended weight loss. PLAN/RECOMMENDATIONS: 1. Continue Advair 250/50 Diskhaler 1 puff daily. 2. Continue Spiriva 1 capsule daily 3. Patient may be able to go home on Levaquin 500 mg tablet p.o. daily for the next 7 to 10 days. 4. Patient may be able to go home on oral Lasix and Bumex. 5. Recommend cardiology follow-up also upon discharge. 6. Pulmonary clinic follow up in 3 to 4 weeks following hospital discharge. 7. Patient is able to go home tomorrow. We will sign off tonight. If you have any questions, please feel free to call me. DICTATING PHYSICIAN: CLARISSA ARREDONDO MD,TANIA,MPH [id number] PHY#: [id number] ID: [id number] JOB#: [id number] ACCT: [id number] cc: > MTDD
[2018-06-30] MEDS: DONEPEZIL HCL 5 MG TABLET PO SCH (10:31)
[2018-06-30] MEDS: FONDAPARINUX SODIUM INJ 7.5 MG/0.6 ML DISP.SYRIN SUBCUT SCH (10:31)
[2018-06-30] MEDS: FLUTICASONE/SALMETEROL DISKUS 250-50 MCG/DOSE IH SCH ×2 (10:31→21:47)
[2018-06-30] MEDS: POTASSIUM CHLORIDE 10 MEQ CAPSULE.ER PO SCH (10:32)
[2018-06-30] MEDS: MAGNESIUM OXIDE 400 MG TABLET PO SCH (10:32)
[2018-06-30] MEDS: PREDNISONE 20 MG TABLET PO SCH (10:32)
[2018-06-30] MEDS: MORPHINE SULFATE SR 30 MG TABLET PO SCH ×2 (10:32→21:47)
[2018-06-30] MEDS: FLUOXETINE HCL 20 MG CAPSULE PO SCH (10:33)
[2018-06-30] MEDS: AZITHROMYCIN 250 MG TABLET PO SCH (10:33)
[2018-06-30] MEDS: BENZOCAINE/MENTHOL SORE THROAT LOZENGE BUCCAL PRN ×2 (10:41→21:47)
[2018-06-30] MEDS: BUMETANIDE 1 MG TABLET PO SCH (10:41)
[2018-06-30] MEDS: ROPINIROLE HCL 0.25 MG TABLET PO SCH ×2 (10:41→17:15)
[2018-06-30] MEDS: PRIMIDONE 50 MG TABLET PO SCH ×3 (10:41→17:15)
[2018-06-30] MEDS: PRENATAL VITAMIN W DHA CAPSULE PO SCH (10:42)
[2018-06-30] MEDS: METOLAZONE 5 MG TABLET PO SCH (11:28)
[2018-06-30] MEDS: ALPRAZOLAM 0.5 MG TABLET PO PRN (11:30)
[2018-06-30] MEDS: DICYCLOMINE HCL 10 MG CAPSULE PO PRN (12:39)
[2018-06-30] MEDS ORDERED: VANCOMYCIN HCL 1,250 MG in DEXTROSE 5%-WATER 250 ML IV SCH (13:00)
--- NOTE | 2018-06-30 13:24 | RADIOLOGY REPORT (SQ) ---
EXAM DESCRIPTION: CHEST SINGLE VIEW COMPLETED DATE/TIME: 06/30/2018 1:06 pm REASON FOR STUDY: assess improvement of congestion COMPARISON: 06/28/2018 EXAM PARAMETERS: NUMBER OF VIEWS: One view. TECHNIQUE: Single frontal radiographic view of the chest acquired. RADIATION DOSE: NA LIMITATIONS: None. FINDINGS: LUNGS AND PLEURA: Hazy ground-glass and interstitial pulmonary opacity unchanged from prio r. MEDIASTINUM AND HILAR STRUCTURES: No masses. Contour normal. HEART AND VASCULAR STRUCTURES: Cardiomegaly. BONES: No acute findings. HARDWARE: None in the chest. OTHER: No other significant finding. IMPRESSION: Unchanged hazy ground-glass and interstitial pulmonary opacity, nonspecific and likely i nfectious or inflammatory in nature. TECHNICAL DOCUMENTATION: JOB ID: [id number] [employer]- All Rights Reserved Reading location - IP/workstation name: [email or web address]
--- NOTE | 2018-06-30 16:29 | PDOC PROGRESS REPORT ---
Subjective Progress Note for:: 06/30/18 Subjective:: Ms. Doherty is a 62 yr old female with a PMH of chronic diastolic heart failure , HTN, hyperlipidemia, opiate dependence, COPD and prior CVA who initially presented with worsening SOB, cough and wheezing. Chest x-ray showed pulmonary edema. She does say she has chronic pedal edema and 2-3 pillow orthopnea which she thinks is slightly progressing. She was admitted for possible COPD vs athma exacerbation. Bedside spirometry was done and shows severe fixed obstruction consistent with severe COPD. We discussed her chronic pain regimen again. She was able to tolerate decrease in the dose of her chronic opiates and Xanax. No recurrence of lethargy after adjustment of her pain meds and Xanax dose and frequency on 06/28/18. No acute event overnight. She appeared comfortable on bed upon encounter. This morning, she says she was not able to sleep well last night and is asking if her Xanax could be resumed back to QID. Explained and discussed in length again that QID is too frequent with her being also on MS Contin. She did say she had some loose stools last night. No tachycardia or tremors. She has slow but gradual improvement. She worked with PT today and was able to do a few side steps before she developed SOB. At baseline, she is able to walk form the bedroom to the living room before she gets short of breath. Explained that with her severe COPD and multifocal, bilateral pneumonia with some pulmonary congestion, it will take longer for her to recover and get back to he usual baseline. She is amenable to going to rehab. She denies chest pain. She says she has not been having the productive anymore. No fever or chills. Reason For Visit: COPD EXACERBATION Physical Exam Vital Signs: Temp Pulse Resp BP Pulse Ox 98.4 F 94 16 125/55 L 95 06/30/18 12:50 06/30/18 14:00 06/30/18 13:50 06/30/18 12:50 06/30/18 13:50 Intake & Output 06/29/18 06/30/18 07/01/18 06:59 06:59 06:59 Intake Total 950 1682 1025 Output Total 2950 1400 Balance -2000 282 1025 Weight 263 lb 0.183 oz 263 lb 0.183 oz General appearance: PRESENT: no acute distress, well-developed, well-nourished Head exam: PRESENT: atraumatic, normocephalic Eye exam: PRESENT: conjunctiva pink, EOMI, PERRLA. ABSENT: scleral icterus Ear exam: PRESENT: normal external ear exam Mouth exam: PRESENT: moist, tongue midline Neck exam: ABSENT: carotid bruit, JVD, lymphadenopathy, thyromegaly Respiratory exam: PRESENT: rhonchi. ABSENT: rales, wheezes Pulses: PRESENT: normal dorsalis pedis pul GI/Abdominal exam: PRESENT: normal bowel sounds, soft. ABSENT: distended, guarding, mass, organolmegaly, rebound, tenderness Rectal exam: PRESENT: deferred Neurological exam: PRESENT: alert, awake, oriented to person, oriented to place , oriented to time, oriented to situation, CN II-XII grossly intact. ABSENT: motor sensory deficit Results Laboratory Results: 06/28/18 04:31 06/29/18 12:52 06/29/18 13:45 Sputum Gram Stain - Final 06/29/18 13:45 Sputum Sputum Culture - Final C.albicans/C.dubliniensis Normal Yani Absent 06/23/18 06/24/18 06/24/18 23:50 05:55 11:35 Troponin I 0.018 0.021 0.014 Impressions: Chest CT 06/25/18 00:00 IMPRESSION: Multifocal airspace disease, edema versus pneumonia versus pneumonitis Chest X-Ray 06/30/18 11:32 IMPRESSION: Unchanged hazy ground-glass and interstitial pulmonary opacity, nonspecific and likely infectious or inflammatory in nature. Assessment & Plan - Diagnosis (1) Acute hypoxemic respiratory failure Is this a current diagnosis for this admission?: Yes Plan: Improving. Secondary to COPD exacerbation and multifocal pneumonia and pulmonary congestion. Currently saturating well on 3L via NC but continues to have exertional dyspnea with slow but gradual improvement. (2) HCAP (healthcare-associated pneumonia) Is this a current diagnosis for this admission?: Yes Plan: Improving. Chest CT shows bilateral, multifocal pneumonia with some congestion. Will switch IV antibiotics to PO Levaquin today. (3) COPD exacerbation Is this a current diagnosis for this admission?: Yes Plan: Bedside spirometry is consistent with severe COPD and not asthma. Continue prednisone. Continue breathing treatments and antibiotic changes as per #2. Pulmonology following. (4) Acute on chronic diastolic (congestive) heart failure Is this a current diagnosis for this admission?: Yes Plan: Patient's echo in 2016 shows grade 1 diastolic dysfunction. She says she has chronic pedal edema and 2-3 pillow orthopnea which she says has been progressing. Recent echo shows normal EF. CT does also show congestion. Patient was receiving 40 mg of IV Lasix daily initially. Her ohme diuretic regimen has been resumed. Continue bumex and metolazone. (5) Acute kidney injury Is this a current diagnosis for this admission?: Yes Plan: Improved. Crea today is 1.4. She has a baseline Crea of 1.2. (6) Opioid dependence Is this a current diagnosis for this admission?: Yes Plan: Patient is on a lot of narcotics at home for her chronic pain including chronic back pain. 06/28/18: Discussed in length with patient that she appeared slightly lethargic when I saw her on 06/28/18 after she was given Dilaudid. Discussed the risks of being on lot of narcotics and being on Xanax as well. Decrease her Xanax to qhs. Also decreased MS Contin. Discontinue PO Dilaudid. 06/29/10: We discussed her chronic pain regimen again today. She was able to sleep well last night. Emphasized that she has been able to tolerate decrease in the dose of her chronic opiates and Xanax. No recurrence of lethargy after adjustment of her pain meds and Xanax dose and frequency yesterday. She verbalized understanding. 06/30/18: This morning, she says she was not able to sleep well last night and is asking if her Xanax could be resumed back to QID. Explained and discussed in length again that QID is too frequent with her being also on MS Contin. She did say she had some loose stools last night. No tachycardia or tremors. Will have Xanax at bid prn. - Time Time Spent with patient: 25-34 minutes
[2018-06-30] MEDS: TIOTROPIUM BROMIDE DPI 5 CAP/KIT (18 MCG/CAP) IH SCH (17:15)
[2018-06-30] MEDS: ALPRAZOLAM 0.5 MG TABLET PO SCH (21:47)
[2018-06-30] MEDS: ATORVASTATIN CALCIUM 20 MG TABLET PO SCH (21:47)
[2018-06-30] MEDS: CETIRIZINE 5 MG TABLET PO SCH (21:47)
[2018-06-30] MEDS: RAMIPRIL 2.5 MG CAPSULE PO SCH (21:48)
[2018-06-30] MEDS: ESZOPICLONE 3 MG PO SCH (21:51)
[2018-07-01] MEDS: CYCLOBENZAPRINE HCL 10 MG TABLET PO PRN (02:42)
[2018-07-01] MEDS: IPRATROPIUM/ALBUTEROL 0.5-2.5 MG/3 ML AMPUL NEB SCH ×4 (02:44→20:09)
[2018-07-01] MEDS: LEVOTHYROXINE SODIUM 0.1 MG TABLET PO SCH (05:13)
[2018-07-01] MEDS: LANSOPRAZOLE 15 MG TAB.RAP.DR PO SCH (05:13)
--- NOTE | 2018-07-01 09:24 | PDOC DISCHARGE SUMMARY ---
General - Admit/Disc Date/PCP Admission Date/Primary Care Provider: 06/23/18 22:40 MARK HAILE MD Discharge Date: 07/01/18 - Discharge Diagnosis (1) Acute hypoxemic respiratory failure Is this a current diagnosis for this admission?: Yes (2) Acute on chronic renal failure Is this a current diagnosis for this admission?: Yes (3) Chronic back pain Is this a current diagnosis for this admission?: Yes (4) HCAP (healthcare-associated pneumonia) Is this a current diagnosis for this admission?: Yes (5) History of CVA (cerebrovascular accident) Is this a current diagnosis for this admission?: Yes (6) Opioid dependence Is this a current diagnosis for this admission?: Yes (8) COPD exacerbation Is this a current diagnosis for this admission?: Yes (10) Hypertension Is this a current diagnosis for this admission?: Yes (11) Hypothyroidism Is this a current diagnosis for this admission?: Yes - Additional Information Resuscitation Status: Full Code Discharge Diet: Cardiac Discharge Activity: Activity As Tolerated Prescriptions: Levofloxacin [Levaquin 750 mg Tablet] 750 mg PO Q48H #3 tablet Home Medications: Albuterol Sulfate [Proair HFA Inhalation Aerosol 8.5 gm MDI] 1 puff IH Q6HP PRN 06/24/18 Alprazolam [Xanax 0.5 mg Tablet] 0.5 mg PO Q8HP PRN 06/24/18 Atorvastatin Calcium [Lipitor 20 mg Tablet] 20 mg PO QHS 06/24/18 Azelastine HCl 1 spray NASL BID 06/24/18 Bumetanide [Bumex 1 mg Tablet] 2 mg PO DAILY 06/24/18 Cyclobenzaprine HCl [Flexeril 10 mg Tablet] 10 mg PO Q12HP PRN 06/24/18 Dicyclomine HCl [Bentyl 10 mg Capsule] 10 mg PO MEALS 06/24/18 Donepezil HCl [Aricept] 10 mg PO DAILY 06/24/18 Doxepin HCl [Sinequan 25 mg Capsule] 25 mg PO DAILY 06/24/18 Duloxetine HCl [Cymbalta 20 mg Capsule.dr] 40 mg PO DAILY 06/24/18 Ergocalciferol (Vitamin D2) [Drisdol 50,000 unit (1.25MG) Capsule] 50,000 unit PO LUEVANO@0800 06/24/18 Eszopiclone [Lunesta] 3 mg PO QHS 06/24/18 Fluticasone/Salmeterol [Advair 250-50 Diskus 14 Dose/Diskus] 1 puff IH Q12 06/24 Hydromorphone HCl [Hydromorphone ER] 16 mg PO Q8HP PRN 06/24/18 Levocetirizine Dihydrochloride [Xyzal] 5 mg PO QHS 06/24/18 Levothyroxine Sodium [Synthroid] 200 mcg PO Q6AM 06/24/18 Magnesium Oxide [Mag-Ox 400 mg Tablet] 400 mg PO DAILY 06/24/18 Omeprazole 20 mg PO DAILY 06/24/18 Potassium Chloride [Klor-Con 10 Meq Capsule ER] 10 meq PO BID 06/24/18 No122/Iron/Folic Acid [ Multi Tablet] 1 tab PO DAILY 06/24/18 Primidone [Mysoline 50 mg Tablet] 50 mg PO TID 06/24/18 Ramipril [Altace 2.5 mg Capsule] 2.5 mg PO QHS 06/24/18 Ropinirole HCl [Requip 0.25 mg Tablet] 0.25 mg PO BID 06/24/18 Suvorexant [Belsomra] 20 mg PO HSP PRN 06/24/18 Acetaminophen [Tylenol 325 mg Tablet] 650 mg PO Q4HP PRN tablet 07/01/18 Flu Vacc [id number](6Mos Up)/Pf [Fluarix Adlt Quad Vac 0.5 ml Syr] 0.5 ml IM .DISCHARGE PRN syringe 07/01/18 Levofloxacin [Levaquin 750 mg Tablet] 750 mg PO Q48H #3 tablet 07/01/18 Prednisone [Deltasone 20 mg Tablet] 20 mg PO DAILY #3 tablet 07/01/18 Tiotropium [place] [Spiriva Handihaler 5 Cap/Kit (18 Mcg/Cap)] 1 cap IH QPM kit 07/01/18 History of Present Illness History of Present Illness: LEATHA ATKINS is a 62 year old female with multiple chronic medical conditions and polypharmacy who comes to the emergency department complaining of progressive shortness of breath for the last 2 days, associated with dry cough, wheezing, his dyspnea was so severe that she was unable to go to the bathroom. She has been using her nebulizer treatments at home unsuccessfully. Today she decided to call EMS and she was found with an oxygen saturation of 70% on room air, she was placed on CPAP during her transportation to the emergency department, initially was placed on BiPAP and later on on oxygen via nasal cannula, currently saturating 94% on 2-1/2 L of oxygen. Denies fever, chills, nausea, vomiting, chest pain, abdominal pain, change in her bowel movement her urine. Patient complains of intermittent lower extremities edema, emergencies was concerned and sent a d-dimer that came back 3.8, he requested lower extremities ultrasound in the emergency room apparently came back negative. Patient is chronically anticoagulated with Arixtra secondary to her 5 episodes of CVA. BNP 500 better than 2200 29 February 2016. Chest x-ray is read as pulmonary edema with cardiomegaly. Positive troponin negative. Initially order 80 mg IV Lasix which was held by the emergencies. Hospital Course Hospital Course: Acute hypoxemic respiratory failure Improving. Secondary to COPD exacerbation and multifocal pneumonia and pulmonary congestion. Currently saturating well on 3L via NC but continues to have exertional dyspnea with slow but gradual improvement. HCAP (healthcare-associated pneumonia) Improving. Chest CT shows bilateral, multifocal pneumonia with some congestion. switched from IV antibiotics to PO Levaquin. COPD exacerbation Bedside spirometry is consistent with severe COPD and not asthma. Continue prednisone. Continue breathing treatments and antibiotic changes as per #2. Pulmonology following. Acute on chronic diastolic (congestive) heart failure Patient's echo in 2016 shows grade 1 diastolic dysfunction. She says she has chronic pedal edema and 2-3 pillow orthopnea which she says has been progressing. Recent echo shows normal EF. CT does also show congestion. Patient was receiving 40 mg of IV Lasix daily initially. Her ohme diuretic regimen has been resumed. Continue bumex. Acute kidney injury Improved. Opioid dependence Patient is on a lot of narcotics at home for her chronic pain including chronic back pain. ok maurice discharge on renaly dosed Levaquin and short course of prednisone d/c to rehab Physical Exam Vital Signs: Temp Pulse Resp BP Pulse Ox 98.5 F 90 16 130/44 H 93 07/01/18 08:00 07/01/18 08:00 07/01/18 08:00 07/01/18 08:00 07/01/18 08:00 Intake & Output 06/30/18 07/01/18 07/02/18 06:59 06:59 06:59 Intake Total 1682 2000 Output Total 1400 1000 Balance 282 1000 Weight 263 lb 0.183 oz 262 lb 2.074 oz General appearance: PRESENT: no acute distress Head exam: PRESENT: atraumatic Eye exam: PRESENT: EOMI Ear exam: ABSENT: drainage Neck exam: ABSENT: meningismus Respiratory exam: ABSENT: accessory muscle use, crackles, wheezes Cardiovascular exam: PRESENT: RRR Pulses: PRESENT: normal carotid pulses GI/Abdominal exam: ABSENT: ascites Neurological exam: PRESENT: alert, altered, awake, oriented to person, oriented to place, oriented to time, oriented to situation Results Laboratory Results: 06/28/18 04:31 06/29/18 12:52 06/29/18 13:45 Sputum Gram Stain - Final 06/29/18 13:45 Sputum Sputum Culture - Final C.albicans/C.dubliniensis Normal Yani Absent 06/23/18 06/24/18 06/24/18 23:50 05:55 11:35 Troponin I 0.018 0.021 0.014 Impressions: Chest CT 06/25/18 00:00 IMPRESSION: Multifocal airspace disease, edema versus pneumonia versus pneumonitis Chest X-Ray 06/30/18 11:32 IMPRESSION: Unchanged hazy ground-glass and interstitial pulmonary opacity, nonspecific and likely infectious or inflammatory in nature. Qualifiers - * PATIENT BEING DISCHARGED WITH ANY OF THE FOLLOWING DIAGNOSIS: No
[2018-07-01] MEDS: FONDAPARINUX SODIUM INJ 7.5 MG/0.6 ML DISP.SYRIN SUBCUT SCH (09:57)
[2018-07-01] MEDS: FLUTICASONE/SALMETEROL DISKUS 250-50 MCG/DOSE IH SCH ×2 (09:57→21:43)
[2018-07-01] MEDS: BUMETANIDE 1 MG TABLET PO SCH (09:57)
[2018-07-01] MEDS: DONEPEZIL HCL 5 MG TABLET PO SCH (09:57)
[2018-07-01] MEDS: PREDNISONE 20 MG TABLET PO SCH (09:58)
[2018-07-01] MEDS: MAGNESIUM OXIDE 400 MG TABLET PO SCH (09:58)
[2018-07-01] MEDS: LEVOFLOXACIN 500 MG TABLET PO SCH (09:58)
[2018-07-01] MEDS: PRIMIDONE 50 MG TABLET PO SCH ×3 (09:58→17:18)
[2018-07-01] MEDS: POTASSIUM CHLORIDE 10 MEQ CAPSULE.ER PO SCH (09:58)
[2018-07-01] MEDS: MORPHINE SULFATE SR 30 MG TABLET PO SCH ×2 (09:58→21:44)
[2018-07-01] MEDS: ALPRAZOLAM 0.5 MG TABLET PO PRN (09:59)
[2018-07-01] MEDS: PRENATAL VITAMIN W DHA CAPSULE PO SCH (09:59)
[2018-07-01] MEDS: FLUOXETINE HCL 20 MG CAPSULE PO SCH (09:59)
[2018-07-01] MEDS: METOLAZONE 5 MG TABLET PO SCH (09:59)
[2018-07-01] MEDS: ROPINIROLE HCL 0.25 MG TABLET PO SCH ×2 (09:59→17:19)
[2018-07-01] MEDS ORDERED: LOPERAMIDE HCL 2 MG CAPSULE PO ONE (15:00)
[2018-07-01] MEDS: DICYCLOMINE HCL 10 MG CAPSULE PO PRN (15:44)
[2018-07-01] MEDS: TIOTROPIUM BROMIDE DPI 5 CAP/KIT (18 MCG/CAP) IH SCH (17:19)
[2018-07-01] MEDS: CETIRIZINE 5 MG TABLET PO SCH (21:44)
[2018-07-01] MEDS: RAMIPRIL 2.5 MG CAPSULE PO SCH (21:44)
[2018-07-01] MEDS: ATORVASTATIN CALCIUM 20 MG TABLET PO SCH (21:44)
[2018-07-01] MEDS: ALPRAZOLAM 0.5 MG TABLET PO SCH (21:44)
[2018-07-01] MEDS: ESZOPICLONE 3 MG PO SCH (21:45)
[2018-07-02] MEDS: IPRATROPIUM/ALBUTEROL 0.5-2.5 MG/3 ML AMPUL NEB SCH ×4 (02:12→19:47)
[2018-07-02] MEDS: CYCLOBENZAPRINE HCL 10 MG TABLET PO PRN ×2 (02:37→18:16)
[2018-07-02] MEDS: BENZOCAINE/MENTHOL SORE THROAT LOZENGE BUCCAL PRN ×2 (02:37→21:56)
[2018-07-02] MEDS: LANSOPRAZOLE 15 MG TAB.RAP.DR PO SCH (05:09)
[2018-07-02] MEDS: LEVOTHYROXINE SODIUM 0.1 MG TABLET PO SCH (05:09)
[2018-07-02] MEDS: BUMETANIDE 1 MG TABLET PO SCH (09:55)
[2018-07-02] MEDS: METOLAZONE 5 MG TABLET PO SCH (09:55)
[2018-07-02] MEDS: FLUTICASONE/SALMETEROL DISKUS 250-50 MCG/DOSE IH SCH ×2 (10:01→21:56)
[2018-07-02] MEDS: FONDAPARINUX SODIUM INJ 7.5 MG/0.6 ML DISP.SYRIN SUBCUT SCH (10:02)
[2018-07-02] MEDS: DONEPEZIL HCL 5 MG TABLET PO SCH (10:02)
[2018-07-02] MEDS: PREDNISONE 20 MG TABLET PO SCH (10:02)
[2018-07-02] MEDS: MORPHINE SULFATE SR 30 MG TABLET PO SCH ×2 (10:03→21:56)
[2018-07-02] MEDS: POTASSIUM CHLORIDE 10 MEQ CAPSULE.ER PO SCH (10:03)
[2018-07-02] MEDS: PRIMIDONE 50 MG TABLET PO SCH ×3 (10:03→17:19)
[2018-07-02] MEDS: PRENATAL VITAMIN W DHA CAPSULE PO SCH (10:03)
[2018-07-02] MEDS: LEVOFLOXACIN 500 MG TABLET PO SCH (10:03)
[2018-07-02] MEDS: MAGNESIUM OXIDE 400 MG TABLET PO SCH (10:03)
[2018-07-02] MEDS: FLUOXETINE HCL 20 MG CAPSULE PO SCH (10:04)
[2018-07-02] MEDS: ALPRAZOLAM 0.5 MG TABLET PO PRN (10:04)
[2018-07-02] MEDS: ROPINIROLE HCL 0.25 MG TABLET PO SCH ×2 (10:04→17:19)
[2018-07-02] MEDS: PROMETHAZINE HCL INJ 25 MG/1 ML VIAL IV PRN (11:01)
[2018-07-02] MEDS: TIOTROPIUM BROMIDE DPI 5 CAP/KIT (18 MCG/CAP) IH SCH (17:19)
[2018-07-02] MEDS: ALPRAZOLAM 0.5 MG TABLET PO SCH (21:56)
[2018-07-02] MEDS: CETIRIZINE 5 MG TABLET PO SCH (21:56)
[2018-07-02] MEDS: ATORVASTATIN CALCIUM 20 MG TABLET PO SCH (21:56)
[2018-07-02] MEDS: RAMIPRIL 2.5 MG CAPSULE PO SCH (21:57)
[2018-07-02] MEDS: ESZOPICLONE 3 MG PO SCH (21:58)
[2018-07-03] MEDS: IPRATROPIUM/ALBUTEROL 0.5-2.5 MG/3 ML AMPUL NEB SCH ×3 (01:51→13:22)
[2018-07-03] MEDS: CYCLOBENZAPRINE HCL 10 MG TABLET PO PRN (02:21)
[2018-07-03] MEDS: LANSOPRAZOLE 15 MG TAB.RAP.DR PO SCH (05:15)
[2018-07-03] MEDS ORDERED: LEVOTHYROXINE SODIUM 0.05 MG TABLET PO SCH (08:00)
[2018-07-03] MEDS ORDERED: LEVOTHYROXINE SODIUM 0.1 MG TABLET PO SCH (08:00)
[2018-07-03] MEDS: FLUOXETINE HCL 20 MG CAPSULE PO SCH (09:20)
[2018-07-03] MEDS: MAGNESIUM OXIDE 400 MG TABLET PO SCH (09:21)
[2018-07-03] MEDS: DONEPEZIL HCL 5 MG TABLET PO SCH (09:23)
[2018-07-03] MEDS: BUMETANIDE 1 MG TABLET PO SCH (09:23)
[2018-07-03] MEDS: PREDNISONE 20 MG TABLET PO SCH (09:24)
[2018-07-03] MEDS: MORPHINE SULFATE SR 30 MG TABLET PO SCH (09:24)
[2018-07-03] MEDS: POTASSIUM CHLORIDE 10 MEQ CAPSULE.ER PO SCH (09:25)
[2018-07-03] MEDS: PRENATAL VITAMIN W DHA CAPSULE PO SCH (09:27)
[2018-07-03] MEDS: LEVOFLOXACIN 500 MG TABLET PO SCH (09:28)
[2018-07-03] MEDS: FONDAPARINUX SODIUM INJ 7.5 MG/0.6 ML DISP.SYRIN SUBCUT SCH (09:28)
[2018-07-03] MEDS: FLUTICASONE/SALMETEROL DISKUS 250-50 MCG/DOSE IH SCH (09:28)
[2018-07-03] MEDS: PRIMIDONE 50 MG TABLET PO SCH ×2 (09:28→13:25)
[2018-07-03] MEDS: METOLAZONE 5 MG TABLET PO SCH (09:34)
[2018-07-03] MEDS: ROPINIROLE HCL 0.25 MG TABLET PO SCH (10:05)
--- NOTE | 2018-07-03 10:44 | PDOC PROGRESS REPORT ---
Subjective Progress Note for:: 07/03/18 Subjective:: Patient had discharge orders since July 01, 2018. She was declined from different rehabilitation facilities due to her expensive medications. Clinically she is improving and doing well. Reason For Visit: COPD EXACERBATION Physical Exam Vital Signs: Temp Pulse Resp BP Pulse Ox 98.2 F 85 13 94/46 L 96 07/03/18 07:25 07/03/18 07:47 07/03/18 07:47 07/03/18 07:25 07/03/18 07:47 Intake & Output 07/02/18 07/03/18 07/04/18 06:59 06:59 06:59 Intake Total 710 1216 Output Total 1260 600 Balance -550 616 Weight 267 lb 6.731 oz 260 lb 9.382 oz General appearance: PRESENT: no acute distress, cooperative Head exam: PRESENT: atraumatic, normocephalic Eye exam: ABSENT: conjunctival injection Respiratory exam: PRESENT: accessory muscle use, clear to auscultation allison Cardiovascular exam: PRESENT: RRR Neurological exam: PRESENT: alert, awake, oriented to person, oriented to place , oriented to time, oriented to situation Results Laboratory Results: 06/28/18 04:31 06/29/18 12:52 06/23/18 06/24/18 06/24/18 23:50 05:55 11:35 Troponin I 0.018 0.021 0.014 Impressions: Chest CT 06/25/18 00:00 IMPRESSION: Multifocal airspace disease, edema versus pneumonia versus pneumonitis Chest X-Ray 06/30/18 11:32 IMPRESSION: Unchanged hazy ground-glass and interstitial pulmonary opacity, nonspecific and likely infectious or inflammatory in nature. Assessment & Plan - Diagnosis (1) Acute hypoxemic respiratory failure Is this a current diagnosis for this admission?: Yes Plan: Currently she is on 1.5 L/min oxygen. Wean as tolerated. (2) Acute on chronic renal failure Is this a current diagnosis for this admission?: Yes Plan: Improved (3) Chronic back pain Is this a current diagnosis for this admission?: Yes Plan: Continue chronic meds (4) HCAP (healthcare-associated pneumonia) Is this a current diagnosis for this admission?: Yes Plan: Finish Levaquin course (5) History of CVA (cerebrovascular accident) Is this a current diagnosis for this admission?: Yes (6) COPD exacerbation Is this a current diagnosis for this admission?: Yes Plan: Finish Short course of prednisone (7) Hypertension Qualifiers: Hypertension type: essential hypertension Qualified Code(s): I10 - Essential (primary) hypertension Is this a current diagnosis for this admission?: Yes Plan: Continue home meds - Plan Summary Plan Summary: Proceed with discharge plans. Physical therapy to evaluate the possibility of going home with home care although the skin testing to that since he has back pain and does not think he can help her move or transfer.
[2018-07-03 12:56] VITALS: BP 140/67
== END 2018-07-03 14:20 | disposition home health service (06) | DRG 189 ==
LOC: ER 18:16 → EH 22:40 → 3W 06-24 02:34 → 5 06-29 18:36
PROVIDERS: ADMIT Internal Medicine; ATTEND Internal Medicine
PROC: 3E0234Z Introduction of Serum, Toxoid and Vaccine into Muscle, Percutaneous Approach (ICD-10-PCS; principal; 2018-07-03)
DX: J96.01 Acute respiratory failure with hypoxia (principal); J18.9 Pneumonia, unspecified organism; I50.33 Acute on chronic diastolic (congestive) heart failure; J44.1 Chronic obstructive pulmonary disease with (acute) exacerbation; I13.0 Hypertensive heart and chronic kidney disease with heart failure and stage 1 through stage 4 chronic kidney disease, or unspecified chronic kidney disease; N17.9 Acute kidney failure, unspecified; F11.20 Opioid dependence, uncomplicated; Z68.41 Body mass index [BMI] 40.0-44.9, adult; N18.3 Chronic kidney disease, stage 3 (moderate); E78.00 Pure hypercholesterolemia, unspecified; E03.9 Hypothyroidism, unspecified; E66.01 Morbid (severe) obesity due to excess calories; M54.9 Dorsalgia, unspecified; F41.9 Anxiety disorder, unspecified; F32.9 Major depressive disorder, single episode, unspecified; Z79.01 Long term (current) use of anticoagulants; Z79.51 Long term (current) use of inhaled steroids; Z79.899 Other long term (current) drug therapy; Z86.73 Personal history of transient ischemic attack (TIA), and cerebral infarction without residual deficits; Z87.891 Personal history of nicotine dependence; Z23 Encounter for immunization
CPT/HCPCS: 36415; 36600; 51702; 71045; 71250; 80048; 80053; 80202; 81001; 82550; 82553; 82565; 82803; 83735; 83880; 84100; 84484; 85025; 85610; 85730; 87040; 87070; 87205; 87493; 90471; 90686; 93005; 93010; 93306; 93970; 94060; 94640; 94660; 96374; 99285; G0008; G8978-GP; G8979-GP; J1652; J1940; J1956; J2543; J2550; J2930; J3370; J3490; J7060; J7512; J7620

== ENCOUNTER 2018-07-17 06:10 | Inpatient (IN) | payer MEDICARE, OTHER ==
[2018-07-17] MEDS ORDERED: MAGNESIUM SULFATE/D5W 1 GM/100 ML RTUPB IV ONE (06:39)
[2018-07-17 06:54] LABS: ABSOLUTE EOSINOPHILS # (AUTO) 0.3 10^3/uL (0.0-0.6); ABSOLUTE LYMPHOCYTES (AUTO) 1.8 10^3/uL (0.5-4.7); ABSOLUTE MONOCYTES (AUTO) 0.6 10^3/uL (0.1-1.4); ABSOLUTE NEUT (AUTO) 6.5 10^3/uL (1.7-8.2); BASOPHILS % (AUTO) 0.5 % (0-2); EOSINOPHILS % (AUTO) 3.7 % (0-6); HEMATOCRIT 29.2 % (36.0-47.0); HEMOGLOBIN 9.7 g/dL (12.0-15.5); LYMPHOCYTES % (AUTO) 19.1 % (13-45); MEAN CORPUSCULAR HEMOGLOBIN 29.8 pg (27.0-33.4); MEAN CORPUSCULAR HGB CONC 33.1 g/dL (32.0-36.0); MEAN CORPUSCULAR VOLUME 90 fl (80-97); MONOCYTES % (AUTO) 6.6 % (3-13); PLATELET COUNT 279 10^3/uL (150-450); RED BLOOD COUNT 3.24 10^6/uL (3.72-5.28); RED CELL DISTRIBUTION WIDTH 15.5 % (11.5-14.0); SEGMENTED NEUTROPHILS % (AUTO) 70.1 % (42-78); TOTAL CELLS COUNTED % (AUTO) 100 %; VENOUS BLOOD BASE EXCESS 2.9 mmol/L; VENOUS BLOOD HCO3 31.3 mmol/L (20-32); VENOUS BLOOD PH 7.27 (7.30-7.42); WHITE BLOOD COUNT 9.2 10^3/uL (4.0-10.5)
[2018-07-17 06:59] LABS: VENOUS BLOOD PCO2 70.3 mmHg (35-63)
[2018-07-17 07:14] LABS: ALANINE AMINOTRANSFERASE 19 U/L (9-52); ALBUMIN 3.5 g/dL (3.5-5.0); ALKALINE PHOSPHATASE 93 U/L (38-126); ANION GAP 8 (5-19); ASPARTATE AMINO TRANSFERASE 19 U/L (14-36); BILIRUBIN,DIRECT 0.4 mg/dL (0.0-0.4); BILIRUBIN,TOTAL 0.4 mg/dL (0.2-1.3); BLOOD UREA NITROGEN 29 mg/dL (7-20); CARBON DIOXIDE 27 mmol/L (22-30); CHLORIDE 105 mmol/L (98-107); GLUCOSE 103 mg/dL (75-110); POTASSIUM 4.7 mmol/L (3.6-5.0); SODIUM 140.1 mmol/L (137-145); TOTAL PROTEIN 6.6 g/dL (6.3-8.2)
--- NOTE | 2018-07-17 07:19 | RADIOLOGY REPORT (SQ) ---
EXAM DESCRIPTION: XR CHEST 1 VIEW COMPLETED DATE/TME: 07/17/2018 06:24 CLINICAL HISTORY: sob COMPARISON: 06/30/2018 FINDINGS: Single frontal view of the chest. Leads overlie the chest. Low lung volumes. The cardiomediastinal silhouette has normal size and contour. Stable bilateral hazy groundglass and residual opacities. No acute focal consolidation, pneumothorax, or pleural effusion. Osseous structures are stable. Upper abdominal soft tissues are unremarkable. IMPRESSION: 1. No acute focal consolidation identified. Stable chronic interstitial and hazy groundglass opacities.
[2018-07-17 07:24] LABS: INTERNATIONAL RATION (INR) 0.94
[2018-07-17 07:26] LABS: NT PRO BNP 650 pg/mL (5-900)
[2018-07-17 07:28] LABS: TROPONIN I < 0.012 ng/mL
[2018-07-17 07:35] LABS: APPEARANCE,URINE SLIGHTLY-CLOUDY; BILIRUBIN,URINE NEGATIVE (NEGATIVE); COLOR,URINE YELLOW; GLUCOSE, URINE NEGATIVE (NEGATIVE); KETONES,URINE NEGATIVE (NEGATIVE); LEUKOCYTE ESTERASE,URINE NEGATIVE (NEGATIVE); NITRITE,URINE NEGATIVE (NEGATIVE); PROTEIN,URINE NEGATIVE (NEGATIVE); URINE SPECIFIC GRAVITY 1.017; UROBILINOGEN,URINE NEGATIVE mg/dL (<2.0)
[2018-07-17] MEDS ORDERED: IPRATROPIUM/ALBUTEROL 0.5-2.5 MG/3 ML AMPUL NEB ONE (07:49)
--- NOTE | 2018-07-17 08:17 | ER Document Report ---
ED General - General Chief Complaint: Breathing Difficulty Stated Complaint: TROUBLE BREATHING Time Seen by Provider: 07/17/18 06:23 TRAVEL OUTSIDE OF THE [place] IN LAST 30 DAYS: No - HPI Patient complains to provider of: Difficulty in breathing Notes: Patient coming in for evaluation difficulty in breathing. Patient was recently admitted to the hospital for pneumonia patient has a history of chronic narcotic use COPD CHF states cough ever since Wally patient denies any fever chills nausea vomiting. Patient was found by EMS to have SPO2 in the 60s and 70s patient was placed on CPAP transport to the ER for further evaluation. Upon my evaluation patient has coarse lung sounds he is a transitioned over to BiPAP. Patient is initially tachycardic. Patient otherwise denies any pain states night sweats feeling feverish however no nausea no vomiting no diarrhea - Related Data Allergies/Adverse Reactions: pregabalin [From Lyrica] Allergy (Unknown, Verified 07/17/18 07:41) trazodone HCl [From Desyrel] Allergy (Unknown, Verified 07/17/18 07:41) cephalexin monohydrate [From Keflex] Adverse Reaction (Verified 07/17/18 07:41) nausea, vomiting erythromycin base [Erythromycin Base] Adverse Reaction (Verified 07/17/18 07:41) nausea, vomiting Past Medical History - Social History Smoking Status: Former Smoker Chew tobacco use (# tins/day): No Frequency of alcohol use: None Drug Abuse: None Family History: Reviewed & Not Pertinent Patient has suicidal ideation: No Patient has homicidal ideation: No - Past Medical History Cardiac Medical History: Reports: Hx Congestive Heart Failure, Hx Hypercholesterolemia, Hx Hypertension Denies: Hx Coronary Artery Disease - HIGH CHOLESTEROL Pulmonary Medical History: Reports: Hx Asthma, Hx Bronchitis, Hx COPD, Hx Pneumonia Denies: Hx Tuberculosis Neurological Medical History: Reports: Hx Cerebrovascular Accident - 7 YEARS AGO HAS "MEMORY ISSUES" "STROKE X5. Denies: Hx Seizures Endocrine Medical History: Reports: Hx Hypothyroidism Renal/ Medical History: Reports: Hx Renal Insufficiency. Denies: Hx Peritoneal Dialysis Psychiatric Medical History: Reports: Hx Depression Past Surgical History: Reports: Hx Dilation and Curettage, Hx Hysterectomy, Hx Tubal Ligation - Immunizations Hx Diphtheria, Pertussis, Tetanus Vaccination: Yes Review of Systems - Review of Systems Constitutional: No symptoms reported EENT: No symptoms reported Cardiovascular: No symptoms reported Respiratory: Short of breath, Wheezing Gastrointestinal: No symptoms reported Genitourinary: No symptoms reported Female Genitourinary: No symptoms reported Musculoskeletal: No symptoms reported Skin: No symptoms reported Hematologic/Lymphatic: No symptoms reported Neurological/Psychological: No symptoms reported -: Yes All other systems reviewed and negative Physical Exam - Vital signs Vitals: Temp 99.9 F 07/17/18 06:11 Interpretation: Normal - General General appearance: Appears well, Alert - HEENT Head: Normocephalic, Atraumatic Eyes: Normal Pupils: PERRL - Respiratory Respiratory status: Respiratory distress Chest status: Nontender Breath sounds: Wheezing Chest palpation: Normal - Cardiovascular Rhythm: Regular Heart sounds: Normal auscultation Murmur: No - Abdominal Inspection: Normal, Obese Distension: No distension Bowel sounds: Normal Tenderness: Nontender Organomegaly: No organomegaly - Back Back: Normal, Nontender - Extremities General upper extremity: Normal inspection, Nontender, Normal color, Normal temperature General lower extremity: Normal inspection, Nontender, Normal color, Normal temperature, Normal weight bearing. No: Aditya's sign - Neurological Neuro grossly intact: Yes Cognition: Normal Orientation: AAOx4 Meme Coma Scale Eye Opening: Spontaneous Meme Coma Scale Verbal: Oriented Beecher Coma Scale Motor: Obeys Commands Meme Coma Scale Total: 15 Speech: Normal Sensory: Normal - Psychological Associated symptoms: Normal affect, Normal mood - Skin Skin Temperature: Warm Skin Moisture: Dry Skin Color: Normal Course - Re-evaluation Re-evalutation: 07/17/18 14:48 Patient coming in for evaluation of shortness of breath. Patient had improvemen t of her respiratory distress with initiation of BiPAP. Laboratory studies showed a respiratory acidosis with hypercarbia chest x-ray showed chronic groundglass opacities patient with no fever no white count here did not initiate antibiotic therapy left this decision not to the hospitalist. Hospitalist agrees with [facility] admission at this time. - Vital Signs Vital signs: Temp Pulse Resp BP Pulse Ox 97.5 F 105 H 24 H 115/82 100 07/17/18 13:20 07/17/18 13:20 07/17/18 13:20 07/17/18 13:20 07/17/18 13:20 - Laboratory Result Diagrams: 07/17/18 06:30 07/17/18 06:30 Laboratory results interpreted by me: 07/17/18 07/17/18 07/17/18 06:30 06:30 06:30 RBC 3.24 L Hgb 9.7 L Hct 29.2 L RDW 15.5 H VBG pH 7.27 L VBG pCO2 70.3 H* BUN 29 H Creatinine 1.69 H Est GFR ( Amer) 37 L Est GFR (Non-Af Amer) 30 L Urine Ascorbic Acid 07/17/18 06:52 RBC Hgb Hct RDW VBG pH VBG pCO2 BUN Creatinine Est GFR ( Amer) Est GFR (Non-Af Amer) Urine Ascorbic Acid 20 H Critical Care Note - Critical Care Note Total time excluding time spent on procedures (mins): 40 Comments: Multiple evaluation patient respiratory distress requiring BiPAP Discharge - Discharge Clinical Impression: COPD exacerbation, Congestive heart failure, Morbid obesity, Opioid dependence Acute respiratory failure Qualifiers: Respiratory failure complication: hypoxia and hypercapnia Qualified Code(s): J96.01 - Acute respiratory failure with hypoxia Condition: Good Disposition: ADMITTED INPATIENT Admitting Provider: Hospitalist - [facility] Unit Admitted: [facility]
[2018-07-17] MEDS ORDERED: ONDANSETRON HCL INJ/PF 4 MG/2 ML SDV IV PRN (08:27)
[2018-07-17] MEDS ORDERED: ACETAMINOPHEN 325 MG TABLET PO PRN (08:27)
[2018-07-17] MEDS ORDERED: ALBUTEROL SULFATE HFA (90 MCG/PUFF) 200 PUFF/8.5 GM MDI IH PRN (08:36)
[2018-07-17] MEDS ORDERED: CYCLOBENZAPRINE HCL 10 MG TABLET PO PRN (08:36)
[2018-07-17] MEDS ORDERED: HYDROMORPHONE HCL 16 MG PO PRN (08:36)
--- NOTE | 2018-07-17 08:56 | PDOC H&P ---
History of Present Illness Admission Date/PCP: MARK HAILE MD Patient complains of: Increasing shortness of breath and wheezing History of Present Illness: LEATHA ATKINS is a 62 year old female patient was here in this hospital 2 weeks ago for COPD exacerbation and pneumonia she was discharged home on p.o. antibiotics and p.o. prednisone as per the patient she is not back to baseline and continued to have shortness of breath and occasional wheezing episodes since yesterday the symptoms gotten worse came to the emergency room for further evaluation. Denies any fever denies any chills but complaining of cough nonproductive cough. Denies any nausea vomiting's. Complains of loose stools as 5 loose stools yesterday. Any upper respiratory tract symptoms. Any headaches dizzy spells. Any home oxygen. Nebulizers at home it did not help her at all last night. Denies any rashes on the skin. Emergency room the VBG was done. She is 7.27 PCO2 70.3 bicarb is 31 and as she was placed on BiPAP and medical consult was called for admission. Spoke to the patient at bedside in the ER she is on still on BiPAP able to communicating well and able to give a de tailed history. Past Medical History Cardiac Medical History: Reports: Congestive Heart Failure, Hyperlipidema, Hypertension Denies: Coronary Artery Disease - HIGH CHOLESTEROL Pulmonary Medical History: Reports: Asthma, Bronchitis, Chronic Obstructive Pulmonary Disease (COPD), Pneumonia Denies: Tuberculosis Neurological Medical History: Reports: Ischemic CVA Denies: Seizures Endocrine Medical History: Reports: Hypothyroidism Renal/ Medical History: Reports: Chronic Kidney Disease Psychiatric Medical History: Reports: Depression, General Anxiety Disorder Hematology: Denies: Anemia Past Surgical History Past Surgical History: Reports: Hysterectomy, Tubal Ligation Social History Smoking Status: Former Smoker Frequency of Alcohol Use: None Hx Recreational Drug Use: No Drugs: None Hx Prescription Drug Abuse: No Family History Family History: Reviewed & Not Pertinent Parental Family History Reviewed: Yes Children Family History Reviewed: Yes Sibling(s) Family History Reviewed.: Yes Medication/Allergy Home Medications: Albuterol Sulfate [Proair HFA Inhalation Aerosol 8.5 gm MDI] 1 puff IH Q6HP PRN 06/24/18 Alprazolam [Xanax 0.5 mg Tablet] 0.5 mg PO Q8HP PRN 06/24/18 Atorvastatin Calcium [Lipitor 20 mg Tablet] 20 mg PO QHS 06/24/18 Azelastine HCl 1 spray NASL BID 06/24/18 Bumetanide [Bumex 1 mg Tablet] 2 mg PO DAILY 06/24/18 Cyclobenzaprine HCl [Flexeril 10 mg Tablet] 10 mg PO Q12HP PRN 06/24/18 Dicyclomine HCl [Bentyl 10 mg Capsule] 10 mg PO MEALS 06/24/18 Donepezil HCl [Aricept] 10 mg PO DAILY 06/24/18 Doxepin HCl [Sinequan 25 mg Capsule] 25 mg PO DAILY 06/24/18 Duloxetine HCl [Cymbalta 20 mg Capsule.dr] 40 mg PO DAILY 06/24/18 Ergocalciferol (Vitamin D2) [Drisdol 50,000 unit (1.25MG) Capsule] 50,000 unit PO LUEVANO@0800 06/24/18 Eszopiclone [Lunesta] 3 mg PO QHS 06/24/18 Fluticasone/Salmeterol [Advair 250-50 Diskus 14 Dose/Diskus] 1 puff IH Q12 06/24/18 Hydromorphone HCl [Hydromorphone ER] 16 mg PO Q8HP PRN 06/24/18 Levocetirizine Dihydrochloride [Xyzal] 5 mg PO QHS 06/24/18 Magnesium Oxide [Mag-Ox 400 mg Tablet] 400 mg PO DAILY 06/24/18 Omeprazole 20 mg PO DAILY 06/24/18 Potassium Chloride [Klor-Con 10 Meq Capsule ER] 10 meq PO BID 06/24/18 No122/Iron/Folic Acid [ Multi Tablet] 1 tab PO DAILY 06/24/18 Primidone [Mysoline 50 mg Tablet] 50 mg PO TID 06/24/18 Ramipril [Altace 2.5 mg Capsule] 2.5 mg PO QHS 06/24/18 Ropinirole HCl [Requip 0.25 mg Tablet] 0.25 mg PO BID 06/24/18 Suvorexant [Belsomra] 20 mg PO HSP PRN 06/24/18 Acetaminophen [Tylenol 325 mg Tablet] 650 mg PO Q4HP PRN tablet 07/01/18 Flu Vacc [id number](6Mos Up)/Pf [Fluarix Adlt Quad Vac 0.5 ml Syr] 0.5 ml IM .DISCHARGE PRN syringe 07/01/18 Levofloxacin [Levaquin 750 mg Tablet] 750 mg PO Q48H #3 tablet 07/01/18 Prednisone [Deltasone 20 mg Tablet] 20 mg PO DAILY #3 tablet 07/01/18 Tiotropium [place] [Spiriva Handihaler 5 Cap/Kit (18 Mcg/Cap)] 1 cap IH QPM kit 07/01/18 Levothyroxine Sodium [Synthroid] 250 mcg PO Q6AM #0 07/02/18 Allergies/Adverse Reactions: pregabalin [From Lyrica] Allergy (Unknown, Verified 07/17/18 07:41) trazodone HCl [From Desyrel] Allergy (Unknown, Verified 07/17/18 07:41) cephalexin monohydrate [From Keflex] Adverse Reaction (Verified 07/17/18 07:41) nausea, vomiting erythromycin base [Erythromycin Base] Adverse Reaction (Verified 07/17/18 07:41) nausea, vomiting Review of Systems Constitutional: ABSENT: chills, fever(s), night sweats Eyes: ABSENT: visual disturbances Ears: ABSENT: hearing changes Nose, Mouth, and Throat: ABSENT: mouth pain, sore throat Cardiovascular: ABSENT: edema, orthropnea Respiratory: PRESENT: cough, dyspnea, other - Wheezing nonproductive cough. Gastrointestinal: PRESENT: diarrhea - Complaining of diarrhea she has 5 loose stools last night. Neurological: ABSENT: abnormal gait, abnormal speech, confusion, dizziness, focal weakness, syncope Psychiatric: ABSENT: anxiety, depression, homidical ideation, suicidal ideation Physical Exam Vital Signs: Temp Pulse Resp BP Pulse Ox 98.4 F 22 H 122/65 100 07/17/18 07:53 07/17/18 07:30 07/17/18 07:30 07/17/18 07:30 Intake & Output 07/16/18 07/17/18 07/18/18 06:59 06:59 06:59 Intake Total 200 Balance 200 Weight 120 kg General appearance: PRESENT: other - Morbidly obese female in mild distress on BiPAP in the ER. Head exam: PRESENT: atraumatic Eye exam: PRESENT: PERRLA Mouth exam: PRESENT: moist Neck exam: ABSENT: carotid bruit, JVD, lymphadenopathy, thyromegaly Respiratory exam: PRESENT: decreased breath sounds, prolonged expiratory phas, wheezes, other - Patient is on BiPAP at the time of examination. Cardiovascular exam: PRESENT: tachycardia GI/Abdominal exam: PRESENT: soft, other - His abdomen.. ABSENT: tenderness Extremities exam: PRESENT: full ROM. ABSENT: calf tenderness, clubbing, pedal edema Neurological exam: PRESENT: alert, awake, oriented to person, oriented to place, oriented to time, oriented to situation, CN II-XII grossly intact. ABSENT: motor sensory deficit Psychiatric exam: PRESENT: appropriate affect, normal mood. ABSENT: homicidal ideation, suicidal ideation Results Laboratory Results: 07/17/18 06:30 07/17/18 06:30 07/17/18 07/17/18 07/17/18 06:30 06:30 06:30 WBC 9.2 RBC 3.24 L Hgb 9.7 L Hct 29.2 L MCV 90 MCH 29.8 MCHC 33.1 RDW 15.5 H Plt Count 279 Seg Neutrophils % 70.1 Lymphocytes % 19.1 Monocytes % 6.6 Eosinophils % 3.7 Basophils % 0.5 Absolute Neutrophils 6.5 Absolute Lymphocytes 1.8 Absolute Monocytes 0.6 Absolute Eosinophils 0.3 Absolute Basophils 0.0 VBG pH 7.27 L VBG pCO2 70.3 H* VBG HCO3 31.3 VBG Base Excess 2.9 Sodium 140.1 Potassium 4.7 Chloride 105 Carbon Dioxide 27 Anion Gap 8 BUN 29 H Creatinine 1.69 H Est GFR ( Amer) 37 L Est GFR (Non-Af Amer) 30 L Glucose 103 Calcium 9.0 Magnesium 1.6 Total Bilirubin 0.4 AST 19 ALT 19 Alkaline Phosphatase 93 Total Protein 6.6 Albumin 3.5 Urine Color Urine Appearance Urine pH Ur Specific [place] Urine Protein Urine Glucose (UA) Urine Ketones Urine Blood Urine Nitrite Ur Leukocyte Esterase Urine WBC (Auto) Urine RBC (Auto) 07/17/18 06:52 WBC RBC Hgb Hct MCV MCH MCHC RDW Plt Count Seg Neutrophils % Lymphocytes % Monocytes % Eosinophils % Basophils % Absolute Neutrophils Absolute Lymphocytes Absolute Monocytes Absolute Eosinophils Absolute Basophils VBG pH VBG pCO2 VBG HCO3 VBG Base Excess Sodium Potassium Chloride Carbon Dioxide Anion Gap BUN Creatinine Est GFR ( Amer) Est GFR (Non-Af Amer) Glucose Calcium Magnesium Total Bilirubin AST ALT Alkaline Phosphatase Total Protein Albumin Urine Color YELLOW Urine Appearance SLIGHTLY-CLOUDY Urine pH 5.0 Ur Specific [place] 1.017 Urine Protein NEGATIVE Urine Glucose (UA) NEGATIVE Urine Ketones NEGATIVE Urine Blood NEGATIVE Urine Nitrite NEGATIVE Ur Leukocyte Esterase NEGATIVE Urine WBC (Auto) 1 Urine RBC (Auto) 1 07/17/18 06:30 Troponin I < 0.012 NT-Pro-B Natriuret Pep 650 Impressions: Chest X-Ray 07/17/18 06:24 IMPRESSION: 1. No acute focal consolidation identified. Stable chronic interstitial and hazy groundglass opacities. Assessment & Plan - Diagnosis (1) Acute and chronic respiratory failure with hypercapnia Is this a current diagnosis for this admission?: Yes Plan: 07/15/2018-patient's VBG in the ER pH is 7.27 PCO2 70. Patient was placed on BiPAP. Plan is to put her in IMCU. To use the BiPAP as needed basis. Chest x- ray shows bilateral pulmonary hypodensities. Going to request for a pulmonary consult. Blood cultures are pending. I started on Invanz 1 g daily. She is going to get a scheduled nebulizations. BiPAP as needed. She was also started on Xopenex nebulizations every 4 as needed. A request for incentive spirometry. Planning to do the ABG on daily basis. Going to check for the patient's need for home oxygen. (2) COPD exacerbation Is this a current diagnosis for this admission?: Yes Plan: 07/17/2018 patient has history of COPD not on home oxygen. We are going to check her home oxygen requirements once he is stable. I started her on IV Solu- Medrol 40 mg every 8 hours. She is also placed on scheduled nebulizations. We are going to use the BiPAP and as-needed basis. We are going to do the daily ABGs. COPD secondary to smoking. she is a Ex-smoker. (3) Morbid obesity Is this a current diagnosis for this admission?: Yes Plan: 07/17/2018 patient's BMI is more than 45-50. Diet exercise weight loss li festyle changes recommended. I placed a consult for a dietitian. (4) Congestive heart failure Is this a current diagnosis for this admission?: Yes Plan: 07/17/2018 recent echocardiogram from 06/24/2018 shows EF of more than 75%. Left ventricular systolic function is normal. As per the assembler cards and announcements is unable to assess the right ventricle function because of the technical limitations. Patient is not in fluid overload. (5) Acute on chronic renal failure Is this a current diagnosis for this admission?: Yes Plan: 07/17/2018-patient is giving the history of chronic kidney disease Dr. Calderon is her candy cooker helper. Patient's EGFR is 37%. She has stage III kidney disease. Continue to follow the regular renal panel. (6) Hypertension Qualifiers: Hypertension type: essential hypertension Qualified Code(s): I10 - Essential (primary) hypertension Is this a current diagnosis for this admission?: Yes Plan: 07/17/2018 patient blood pressure is 135/99. We are going to resume her home medications. - Time Time Spent: 50 to 70 Minutes Critical Time spent with patient: 15-24 minutes Medications reviewed and adjusted accordingly: Yes Anticipated discharge: Home
[2018-07-17 09:30] LABS: ARTERIAL BLOOD BASE EXCESS 1.5 mmol/L; ARTERIAL BLOOD H2CO3 1.56 mmol/L (1.05-1.35); ARTERIAL BLOOD HCO3 27.8 mmol/L (20-24); ARTERIAL BLOOD O2 SATURATION 95.1 % (94-98); ARTERIAL BLOOD PCO2 51.8 mmHg (35-45); ARTERIAL BLOOD PH 7.35 (7.35-7.45); ARTERIAL BLOOD TOTAL CO2 29.4 mmol/L (21-25)
[2018-07-17 09:37] LABS: ARTERIAL BLOOD FIO2 30%
[2018-07-17 09:47] LABS: A TYPE INFLUENZA AG NEGATIVE (NEGATIVE); B INFLUENZA AG NEGATIVE (NEGATIVE)
[2018-07-17 10:00] LABS: URINE AMPHETAMINES SCREEN NEGATIVE; URINE BARBITURATES SCREEN UNCONFIRMED POSITIVE; URINE BENZODIAZEPINES SCREEN UNCONFIRMED POSITIVE; URINE COCAINE SCREEN NEGATIVE; URINE MARIJUANA (THC) SCREEN NEGATIVE; URINE METHADONE SCREEN NEGATIVE; URINE PHENCYCLIDINE SCREEN NEGATIVE
[2018-07-17] MEDS ORDERED: DULOXETINE HCL 20 MG CAPSULE.DR PO SCH (10:00)
[2018-07-17] MEDS ORDERED: (PENDING PHARMACY ID) (Azelastine Hcl [Azelastine Hcl] 1 SPRAY) NASL SCH (10:00)
[2018-07-17] MEDS ORDERED: ROPINIROLE HCL 0.25 MG TABLET PO SCH (10:00)
[2018-07-17] MEDS ORDERED: ERTAPENEM SODIUM INJ 1 GM VIAL IV SCH ×2 (10:00→12:00)
[2018-07-17] MEDS ORDERED: (PENDING PHARMACY ID) (Prenatal No122/Iron/Folic Acid [Prenatal Multi Tablet] 1 TAB) PO SCH (10:00)
[2018-07-17] MEDS ORDERED: FAMOTIDINE INJ/PF 20 MG/2 ML SDV IV SCH (10:00)
[2018-07-17] MEDS ORDERED: (PENDING PHARMACY ID) (Donepezil Hcl [Aricept] 10 MG) PO SCH (10:00)
--- NOTE | 2018-07-17 10:25 | EKG REPORT ---
SEVERITY:- OTHERWISE NORMAL ECG - SINUS TACHYCARDIA : Confirmed by: Priscilla Reddy 17-Jul-2018 10:24:25
[2018-07-17] MEDS: MAGNESIUM OXIDE 400 MG TABLET PO SCH (10:35)
[2018-07-17] MEDS: DULOXETINE HCL 20 MG CAPSULE.DR PO SCH (10:36)
[2018-07-17] MEDS: DOXEPIN HCL 25 MG CAPSULE PO SCH (10:36)
[2018-07-17] MEDS: ENOXAPARIN SODIUM INJ 40 MG/0.4 ML DISP.SYRIN SUBCUT SCH (10:38)
[2018-07-17] MEDS: POTASSIUM CHLORIDE 10 MEQ CAPSULE.ER PO SCH ×2 (10:42→17:45)
[2018-07-17] MEDS: BUMETANIDE 1 MG TABLET PO SCH (10:42)
[2018-07-17] MEDS: METHYLPREDNISOLONE INJ 40 MG/1 ML SDV IV SCH ×2 (10:49→22:13)
[2018-07-17] MEDS: ERTAPENEM SODIUM 1 GM in NORMAL SALINE 50 ML IV SCH (10:50)
[2018-07-17] MEDS: DONEPEZIL HCL 5 MG TABLET PO SCH (11:52)
[2018-07-17] MEDS: FLUTICASONE/SALMETEROL DISKUS 250-50 MCG/DOSE IH SCH ×2 (11:53→22:16)
[2018-07-17] MEDS: DICYCLOMINE HCL 10 MG CAPSULE PO SCH ×2 (12:03→19:00)
[2018-07-17] MEDS: LEVALBUTEROL HCL NEB 0.63 MG/3 ML AMPUL NEB SCH ×3 (12:11→20:01)
[2018-07-17] MEDS: HYDROMORPHONE HCL 2 MG TABLET PO PRN (14:24)
[2018-07-17] MEDS: PRIMIDONE 50 MG TABLET PO SCH ×2 (14:24→22:13)
[2018-07-17 15:32] LABS: CREATINE KINASE MB 0.37 ng/mL (<4.55)
[2018-07-17 15:37] LABS: TROPONIN I < 0.012 ng/mL
[2018-07-17] MEDS: ALPRAZOLAM 0.5 MG TABLET PO PRN (16:24)
[2018-07-17] MEDS: TIOTROPIUM BROMIDE DPI 5 CAP/KIT (18 MCG/CAP) IH SCH (17:46)
[2018-07-17 19:28] LABS: CREATINE KINASE MB 0.32 ng/mL (<4.55)
[2018-07-17 19:35] LABS: TROPONIN I < 0.012 ng/mL
[2018-07-17] MEDS: ZOLPIDEM TARTRATE 5 MG TABLET PO SCH (22:11)
[2018-07-17] MEDS: ATORVASTATIN CALCIUM 20 MG TABLET PO SCH (22:13)
[2018-07-17] MEDS: FAMOTIDINE INJ/PF 20 MG/2 ML SDV IV SCH (22:13)
[2018-07-17] MEDS: ROPINIROLE HCL 0.25 MG TABLET PO SCH (22:13)
[2018-07-17] MEDS: CETIRIZINE 5 MG TABLET PO SCH (22:13)
[2018-07-17] MEDS: FLUTICASONE NASAL SPRAY 50 MCG/SPRY 120 SPRAY/16 GM NASL SCH (22:16)
[2018-07-17] MEDS: RAMIPRIL 2.5 MG CAPSULE PO SCH (22:17)
[2018-07-18] MEDS: LEVALBUTEROL HCL NEB 0.63 MG/3 ML AMPUL NEB SCH ×6 (00:31→20:42)
[2018-07-18] MEDS: ALPRAZOLAM 0.5 MG TABLET PO PRN ×3 (00:36→18:43)
[2018-07-18 01:00] LABS: CREATINE KINASE MB 0.31 ng/mL (<4.55)
[2018-07-18 01:24] LABS: TROPONIN I < 0.012 ng/mL
[2018-07-18] MEDS: PRIMIDONE 50 MG TABLET PO SCH ×3 (05:43→21:34)
[2018-07-18] MEDS: LEVOTHYROXINE SODIUM 0.05 MG TABLET PO SCH (05:43)
[2018-07-18] MEDS: HYDROMORPHONE HCL 2 MG TABLET PO PRN ×3 (05:44→17:43)
[2018-07-18] MEDS ORDERED: LEVOTHYROXINE SODIUM 0.1 MG TABLET PO SCH (06:00)
[2018-07-18] MEDS ORDERED: (PENDING PHARMACY ID) (Levothyroxine Sodium [Synthroid] 250 MCG) PO SCH (06:00)
[2018-07-18 06:28] LABS: ABSOLUTE MONOCYTES (AUTO) 0.4 10^3/uL (0.1-1.4); ABSOLUTE NEUT (AUTO) 6.8 10^3/uL (1.7-8.2); BASOPHILS % (AUTO) 0.3 % (0-2); EOSINOPHILS % (AUTO) 0.2 % (0-6); HEMATOCRIT 26.2 % (36.0-47.0); HEMOGLOBIN 8.9 g/dL (12.0-15.5); MEAN CORPUSCULAR HEMOGLOBIN 29.9 pg (27.0-33.4); MEAN CORPUSCULAR HGB CONC 34.1 g/dL (32.0-36.0); MEAN CORPUSCULAR VOLUME 88 fl (80-97); MONOCYTES % (AUTO) 5.1 % (3-13); PLATELET COUNT 236 10^3/uL (150-450); RED BLOOD COUNT 2.98 10^6/uL (3.72-5.28); RED CELL DISTRIBUTION WIDTH 14.8 % (11.5-14.0); SEGMENTED NEUTROPHILS % (AUTO) 82.4 % (42-78); TOTAL CELLS COUNTED % (AUTO) 100 %; WHITE BLOOD COUNT 8.2 10^3/uL (4.0-10.5)
[2018-07-18 06:59] LABS: ALANINE AMINOTRANSFERASE 15 U/L (9-52); ALBUMIN 3.1 g/dL (3.5-5.0); ALKALINE PHOSPHATASE 86 U/L (38-126); ANION GAP 7 (5-19); ASPARTATE AMINO TRANSFERASE 15 U/L (14-36); BILIRUBIN,DIRECT 0.3 mg/dL (0.0-0.4); BILIRUBIN,TOTAL 0.3 mg/dL (0.2-1.3); BLOOD UREA NITROGEN 31 mg/dL (7-20); CALCIUM 8.6 mg/dL (8.4-10.2); CARBON DIOXIDE 26 mmol/L (22-30); CHLORIDE 104 mmol/L (98-107); GLUCOSE 125 mg/dL (75-110); POTASSIUM 5.1 mmol/L (3.6-5.0); SODIUM 137.4 mmol/L (137-145); TOTAL PROTEIN 6.2 g/dL (6.3-8.2); TRIGLYCERIDES 55 mg/dL (<150)
[2018-07-18 07:00] LABS: CHOLESTEROL 142.12 mg/dL (0-200)
[2018-07-18 07:10] LABS: DIRECT LDL 76 mg/dL (<100)
--- NOTE | 2018-07-18 10:04 | RADIOLOGY REPORT (SQ) ---
EXAM DESCRIPTION: CHEST SINGLE VIEW COMPLETED DATE/TIME: 07/18/2018 9:46 am REASON FOR STUDY: pneumonia COMPARISON: Previous day NUMBER OF VIEWS: One view. TECHNIQUE: Single frontal radiographic image of the chest acquired. LIMITATIONS: None. FINDINGS: LUNGS AND PLEURA: Diffuse interstitial pattern without definitive focal consolidation. No large effusions. MEDIASTINUM AND HEART: Stable heart size and mediastinal structures. BONY STRUCTURES: No acute findings. HARDWARE: None. OTHER: No other significant finding. IMPRESSION: Chronic interstitial changes. No infiltrate. TECHNICAL DOCUMENTATION: JOB ID: [id number] Reading location - IP/workstation name: [facility]
[2018-07-18] MEDS: FLUTICASONE/SALMETEROL DISKUS 250-50 MCG/DOSE IH SCH ×2 (10:07→21:33)
[2018-07-18] MEDS: DICYCLOMINE HCL 10 MG CAPSULE PO SCH ×3 (10:07→17:36)
[2018-07-18] MEDS: ROPINIROLE HCL 0.25 MG TABLET PO SCH ×2 (10:08→21:34)
[2018-07-18] MEDS: DONEPEZIL HCL 5 MG TABLET PO SCH (10:08)
[2018-07-18] MEDS: MAGNESIUM OXIDE 400 MG TABLET PO SCH (10:09)
[2018-07-18] MEDS: POTASSIUM CHLORIDE 10 MEQ CAPSULE.ER PO SCH (10:09)
[2018-07-18] MEDS: PRENATAL VITAMIN W DHA CAPSULE PO SCH (10:09)
[2018-07-18] MEDS: FLUTICASONE NASAL SPRAY 50 MCG/SPRY 120 SPRAY/16 GM NASL SCH ×2 (10:10→21:33)
[2018-07-18] MEDS: ERTAPENEM SODIUM 1 GM in NORMAL SALINE 50 ML IV SCH (10:10)
[2018-07-18] MEDS: METHYLPREDNISOLONE INJ 40 MG/1 ML SDV IV SCH (10:11)
[2018-07-18] MEDS ORDERED: CYCLOBENZAPRINE HCL 10 MG TABLET PO PRN (10:44)
[2018-07-18] MEDS ORDERED: FLUTICASONE NASAL SPRAY 50 MCG/SPRY 120 SPRAY/16 GM NASL PRN (10:44)
[2018-07-18] MEDS ORDERED: ALBUTEROL SULFATE HFA (90 MCG/PUFF) 200 PUFF/8.5 GM MDI IH PRN (10:44)
[2018-07-18] MEDS ORDERED: NYSTATIN TOPICAL POWDER 15 GM TP PRN (10:44)
--- NOTE | 2018-07-18 10:57 | PDOC PROGRESS REPORT ---
Subjective Progress Note for:: 07/18/18 Subjective:: 07/18/2018-no acute events in the last 24 hours. This 62-year-old female admitted for COPD exacerbation. Chest x-ray negative for pneumonia. She is afebrile. Socks is 100% on 3.5 L. Reason For Visit: COPD EXACERBATION Physical Exam Vital Signs: Temp Pulse Resp BP Pulse Ox 98.8 F 96 20 106/43 L 96 07/18/18 07:58 07/18/18 08:16 07/18/18 08:16 07/18/18 10:44 07/18/18 08:16 Intake & Output 07/17/18 07/18/18 07/19/18 06:59 06:59 06:59 Intake Total 912 Output Total 1050 Balance -138 Weight 120 kg 118.9 kg General appearance: PRESENT: other - Morbidly obese female. Head exam: PRESENT: atraumatic Eye exam: PRESENT: PERRLA Neck exam: ABSENT: carotid bruit, JVD, lymphadenopathy, thyromegaly Respiratory exam: PRESENT: decreased breath sounds Cardiovascular exam: PRESENT: RRR. ABSENT: diastolic murmur, rubs, systolic murmur GI/Abdominal exam: PRESENT: normal bowel sounds, soft. ABSENT: tenderness Extremities exam: PRESENT: +1 edema Neurological exam: PRESENT: alert, awake, oriented to person, oriented to place, oriented to time, oriented to situation, CN II-XII grossly intact. ABSENT: mo tor sensory deficit Psychiatric exam: PRESENT: appropriate affect, normal mood. ABSENT: homicidal ideation, suicidal ideation Results Laboratory Results: 07/18/18 05:59 07/18/18 05:59 07/18/18 07/18/18 07/18/18 05:59 05:59 05:59 WBC 8.2 RBC 2.98 L Hgb 8.9 L Hct 26.2 L MCV 88 MCH 29.9 MCHC 34.1 RDW 14.8 H Plt Count 236 Seg Neutrophils % 82.4 H Lymphocytes % 12.0 L Monocytes % 5.1 Eosinophils % 0.2 Basophils % 0.3 Absolute Neutrophils 6.8 Absolute Lymphocytes 1.0 Absolute Monocytes 0.4 Absolute Eosinophils 0.0 Absolute Basophils 0.0 Sodium 137.4 Potassium 5.1 H Chloride 104 Carbon Dioxide 26 Anion Gap 7 BUN 31 H Creatinine 1.56 H Est GFR ( Amer) 40 L Est GFR (Non-Af Amer) 33 L Glucose 125 H Calcium 8.6 Magnesium 2.0 Total Bilirubin 0.3 AST 15 ALT 15 Alkaline Phosphatase 86 Total Protein 6.2 L Albumin 3.1 L Triglycerides 55 Cholesterol 142.12 LDL Cholesterol Direct 76 VLDL Cholesterol 11.0 HDL Cholesterol 55 TSH 0.41 L 07/17/18 07/17/18 07/17/18 06:30 13:59 13:59 Creatine Kinase 36 CK-MB (CK-2) 0.37 Troponin I < 0.012 < 0.012 NT-Pro-B Natriuret Pep 650 07/17/18 07/17/18 07/18/18 18:44 18:44 00:28 Creatine Kinase 25 L 29 L CK-MB (CK-2) 0.32 Troponin I < 0.012 NT-Pro-B Natriuret Pep 07/18/18 00:28 Creatine Kinase CK-MB (CK-2) 0.31 Troponin I < 0.012 NT-Pro-B Natriuret Pep Impressions: Chest X-Ray 07/18/18 06:00 IMPRESSION: Chronic interstitial changes. No infiltrate. Assessment & Plan - Diagnosis (1) Acute and chronic respiratory failure with hypercapnia Is this a current diagnosis for this admission?: Yes Plan: 07/17/2018-patient's VBG in the ER pH is 7.27 PCO2 70. Patient was placed on BiPAP. Plan is to put her in IMCU. To use the BiPAP as needed basis. Chest x- ray shows bilateral pulmonary hypodensities. Going to request for a pulmonary consult. Blood cultures are pending. I started on Invanz 1 g daily. She is going to get a scheduled nebulizations. BiPAP as needed. She was also started on Xopenex nebulizations every 4 as needed. A request for incentive spirometry. Planning to do the ABG on daily basis. Going to check for the patient's need for home oxygen. 07/18/2018-ABG done yesterday pH is 7.35/PCO2 52/PO2 80 bicarb is 28. Acute respiratory failure with hypercapnia is resolving. Blood cultures are negative so far. Patient is on Invanz 1 g IV daily. She is also on scheduled nebulizations. She is does not have to use the BiPAP last night. And is to continue the present management. IV Solu-Medrol was decreased to 40 mg daily. (2) COPD exacerbation Is this a current diagnosis for this admission?: Yes Plan: 07/17/2018 patient has history of COPD not on home oxygen. We are going to check her home oxygen requirements once he is stable. I started her on IV Solu- Medrol 40 mg every 8 hours. She is also placed on scheduled nebulizations. We are going to use the BiPAP and as-needed basis. We are going to do the daily ABGs. COPD secondary to smoking. she is a Ex-smoker. 07/18/2018-patient has history of COPD not on home oxygen. She is doing much better. She does not have to use the BiPAP last night. Pulse ox 100% on 3.4 L. ABG shows resolving hypercapnia. We are going to check with home oxygen needs. Plan is to continue the present management. (3) Morbid obesity Is this a current diagnosis for this admission?: Yes Plan: 07/17/2018 patient's BMI is more than 45-50. Diet exercise weight loss lifestyle changes recommended. I placed a consult for a dietitian. 07/18/2018 patient weight is 119 kg. Again diet exercise lifestyle modifi cations weight loss were discussed with the patient for more than 10 minutes. Under dietary consult was also requested. (4) Congestive heart failure Is this a current diagnosis for this admission?: Yes Plan: 07/17/2018 recent echocardiogram from 06/24/2018 shows EF of more than 75%. Left ventricular systolic function is normal. As per the youth minister is unable to assess the right ventricle function because of the technical limitations. Patient is not in fluid overload. 07/18/2018-BNP is 650. Patient has 1+ pedal edema. She is on Bumex 2 mg daily. Blood pressure is 100/46. Patient is also saying she is on Zaroxolyn 5 mg po 5 times a day at home. Going to hold Zaroxolyn for now because of the low blood pressures. Decrease Bumex from 2 mg to 1 mg p.o. daily, Because of the low blood pressures. (5) Acute on chronic renal failure Is this a current diagnosis for this admission?: Yes Plan: 07/17/2018-patient is giving the history of chronic kidney disease Dr. Calderon is her guest advisor. Patient's EGFR is 37%. She has stage III kidney disease. Continue to follow the regular renal panel. 07/18/2018-patient has stage III kidney disease admission creatinine is 1.69 it was improved to 1.56 today. I am going to continue to follow the patient renal panel on daily basis. (6) Hypertension Qualifiers: Hypertension type: essential hypertension Qualified Code(s): I10 - Essential (primary) hypertension Is this a current diagnosis for this admission?: Yes Plan: 07/17/2018 patient blood pressure is 135/99. We are going to resume her home medications. 07/18/2018 patient's latest blood pressure is 100/46. I decreased the Bumex from 2 mg 1 mg p.o. daily. Patient is asymptomatic. - Time Time Spent with patient: 15-24 minutes Medications reviewed and adjusted accordingly: Yes Anticipated discharge: Home
[2018-07-18] MEDS ORDERED: ERGOCALCIFEROL (VITAMIN D2) 50000 UNIT (1.25 MG) CAPSULE PO SCH (11:00)
[2018-07-18] MEDS: DULOXETINE HCL 20 MG CAPSULE.DR PO SCH (12:19)
[2018-07-18] MEDS: DOXEPIN HCL 25 MG CAPSULE PO SCH (12:19)
[2018-07-18] MEDS: FONDAPARINUX SODIUM INJ 7.5 MG/0.6 ML DISP.SYRIN SUBCUT SCH (13:24)
[2018-07-18] MEDS: BUMETANIDE 1 MG TABLET PO SCH ×2 (13:24→19:36)
[2018-07-18] MEDS ORDERED: DICYCLOMINE HCL 10 MG CAPSULE PO SCH (14:00)
--- NOTE | 2018-07-18 15:07 | EKG REPORT ---
SEVERITY:- ABNORMAL ECG - SINUS RHYTHM PROBABLE INFERIOR INFARCT, AGE INDETERMINATE : Confirmed by: Priscilla Reddy 18-Jul-2018 15:06:56
[2018-07-18] MEDS: TIOTROPIUM BROMIDE DPI 5 CAP/KIT (18 MCG/CAP) IH SCH (17:36)
[2018-07-18] MEDS: PROMETHAZINE HCL 25 MG TABLET PO PRN (18:34)
[2018-07-18] MEDS: ENOXAPARIN SODIUM INJ 40 MG/0.4 ML DISP.SYRIN SUBCUT SCH (19:37)
[2018-07-18] MEDS: ZOLPIDEM TARTRATE 5 MG TABLET PO SCH (21:26)
[2018-07-18] MEDS: FAMOTIDINE INJ/PF 20 MG/2 ML SDV IV SCH (21:34)
[2018-07-18] MEDS: CETIRIZINE 5 MG TABLET PO SCH (21:34)
[2018-07-18] MEDS: ATORVASTATIN CALCIUM 20 MG TABLET PO SCH (21:34)
[2018-07-18] MEDS: RAMIPRIL 2.5 MG CAPSULE PO SCH (21:35)
[2018-07-18] MEDS ORDERED: FLUTICASONE/SALMETEROL DISKUS 250-50 MCG/DOSE IH SCH (22:00)
[2018-07-18] MEDS ORDERED: HYDROMORPHONE PO SCH (22:00)
[2018-07-18] MEDS ORDERED: DOXEPIN HCL 25 MG CAPSULE PO SCH (22:00)
[2018-07-19] MEDS: LEVALBUTEROL HCL NEB 0.63 MG/3 ML AMPUL NEB SCH ×7 (00:33→23:50)
[2018-07-19] MEDS: HYDROMORPHONE HCL 2 MG TABLET PO PRN ×5 (01:22→21:24)
[2018-07-19] MEDS: ALPRAZOLAM 0.5 MG TABLET PO PRN ×3 (05:28→23:55)
[2018-07-19] MEDS: LEVOTHYROXINE SODIUM 0.1 MG TABLET PO SCH (05:28)
[2018-07-19] MEDS: LEVOTHYROXINE SODIUM 0.05 MG TABLET PO SCH (05:29)
[2018-07-19] MEDS: PRIMIDONE 50 MG TABLET PO SCH ×3 (05:29→22:10)
[2018-07-19 06:53] LABS: ABSOLUTE BASOPHILS # (AUTO) 0.1 10^3/uL (0.0-0.2); ABSOLUTE EOSINOPHILS # (AUTO) 0.4 10^3/uL (0.0-0.6); ABSOLUTE LYMPHOCYTES (AUTO) 1.8 10^3/uL (0.5-4.7); ABSOLUTE MONOCYTES (AUTO) 0.8 10^3/uL (0.1-1.4); ABSOLUTE NEUT (AUTO) 4.5 10^3/uL (1.7-8.2); EOSINOPHILS % (AUTO) 4.7 % (0-6); HEMATOCRIT 26.9 % (36.0-47.0); HEMOGLOBIN 8.9 g/dL (12.0-15.5); LYMPHOCYTES % (AUTO) 24.1 % (13-45); MEAN CORPUSCULAR HEMOGLOBIN 29.5 pg (27.0-33.4); MEAN CORPUSCULAR HGB CONC 33.2 g/dL (32.0-36.0); MEAN CORPUSCULAR VOLUME 89 fl (80-97); MONOCYTES % (AUTO) 10.9 % (3-13); PLATELET COUNT 228 10^3/uL (150-450); RED BLOOD COUNT 3.02 10^6/uL (3.72-5.28); RED CELL DISTRIBUTION WIDTH 15.3 % (11.5-14.0); SEGMENTED NEUTROPHILS % (AUTO) 59.3 % (42-78); TOTAL CELLS COUNTED % (AUTO) 100 %; WHITE BLOOD COUNT 7.6 10^3/uL (4.0-10.5)
[2018-07-19 09:44] LABS: ALANINE AMINOTRANSFERASE 18 U/L (9-52); ALBUMIN 3.2 g/dL (3.5-5.0); ALKALINE PHOSPHATASE 85 U/L (38-126); ANION GAP 5 (5-19); ASPARTATE AMINO TRANSFERASE 29 U/L (14-36); BILIRUBIN,DIRECT 0.2 mg/dL (0.0-0.4); BILIRUBIN,TOTAL 0.2 mg/dL (0.2-1.3); BLOOD UREA NITROGEN 30 mg/dL (7-20); CALCIUM 8.8 mg/dL (8.4-10.2); CARBON DIOXIDE 28 mmol/L (22-30); CHLORIDE 104 mmol/L (98-107); GLUCOSE 101 mg/dL (75-110); POTASSIUM 4.5 mmol/L (3.6-5.0); SODIUM 137.2 mmol/L (137-145); TOTAL PROTEIN 6.5 g/dL (6.3-8.2)
[2018-07-19] MEDS: METHYLPREDNISOLONE INJ 40 MG/1 ML SDV IV SCH (09:49)
[2018-07-19] MEDS: FLUOXETINE HCL 20 MG CAPSULE PO SCH (09:49)
[2018-07-19] MEDS: PRENATAL VITAMIN W DHA CAPSULE PO SCH (09:49)
[2018-07-19] MEDS: DONEPEZIL HCL 5 MG TABLET PO SCH (09:51)
[2018-07-19] MEDS: ROPINIROLE HCL 0.25 MG TABLET PO SCH ×2 (09:51→22:10)
[2018-07-19] MEDS: DOXEPIN HCL 25 MG CAPSULE PO SCH (09:51)
[2018-07-19] MEDS: MAGNESIUM OXIDE 400 MG TABLET PO SCH (09:51)
[2018-07-19] MEDS: DICYCLOMINE HCL 10 MG CAPSULE PO SCH ×3 (09:52→17:51)
[2018-07-19] MEDS: DULOXETINE HCL 20 MG CAPSULE.DR PO SCH (09:52)
[2018-07-19] MEDS: BUMETANIDE 1 MG TABLET PO SCH (09:52)
[2018-07-19] MEDS: FLUTICASONE NASAL SPRAY 50 MCG/SPRY 120 SPRAY/16 GM NASL SCH ×2 (09:54→22:09)
[2018-07-19] MEDS: FLUTICASONE/SALMETEROL DISKUS 250-50 MCG/DOSE IH SCH ×2 (09:54→22:09)
[2018-07-19] MEDS: FONDAPARINUX SODIUM INJ 7.5 MG/0.6 ML DISP.SYRIN SUBCUT SCH (09:54)
[2018-07-19] MEDS ORDERED: MAGNESIUM OXIDE 400 MG TABLET PO SCH (10:00)
[2018-07-19] MEDS ORDERED: HYDROMORPHONE HCL 16 MG PO SCH (10:00)
[2018-07-19] MEDS ORDERED: TIOTROPIUM BROMIDE DPI 5 CAP/KIT (18 MCG/CAP) IH SCH (10:00)
[2018-07-19] MEDS ORDERED: PRENATAL VITAMIN W DHA CAPSULE PO SCH (10:00)
[2018-07-19] MEDS ORDERED: (PENDING PHARMACY ID) (Donepezil Hcl [Aricept] 10 MG) PO SCH (10:00)
[2018-07-19] MEDS: ERTAPENEM SODIUM 1 GM in NORMAL SALINE 50 ML IV SCH (10:01)
--- NOTE | 2018-07-19 11:42 | PDOC PROGRESS REPORT ---
Subjective Progress Note for:: 07/19/18 Subjective:: 07/18/2018-no acute events in the last 24 hours. This 62-year-old female admitted for COPD exacerbation. Chest x-ray negative for pneumonia. She is afebrile. Socks is 100% on 3.5 L. 07/19/2018 no acute events in the last 24 hours. Patient's pulse ox on room air is 96%. is saying that the patient is following at home he is requesting physical therapy. We are going to make arrangements for physical therapy. Reason For Visit: COPD EXACERBATION Physical Exam Vital Signs: Temp Pulse Resp BP Pulse Ox 98.4 F 91 18 104/49 L 97 07/19/18 11:15 07/19/18 11:15 07/19/18 11:15 07/19/18 11:15 07/19/18 11:15 Intake & Output 07/18/18 07/19/18 07/20/18 06:59 06:59 06:59 Intake Total 912 572 230 Output Total 1050 775 200 Balance -138 -203 30 Weight 118.9 kg 117.9 kg General appearance: PRESENT: no acute distress Head exam: PRESENT: atraumatic Eye exam: PRESENT: PERRLA Neck exam: ABSENT: carotid bruit, JVD, lymphadenopathy, thyromegaly Respiratory exam: PRESENT: clear to auscultation allison. ABSENT: rales, rhonchi, wheezes Cardiovascular exam: PRESENT: RRR. ABSENT: diastolic murmur, rubs, systolic murmur Neurological exam: PRESENT: alert, awake, oriented to person, oriented to place, oriented to time, oriented to situation, CN II-XII grossly intact. ABSENT: motor sensory deficit Psychiatric exam: PRESENT: appropriate affect, normal mood. ABSENT: homicidal ideation, suicidal ideation Results Laboratory Results: 07/19/18 05:13 07/19/18 05:13 07/19/18 07/19/18 07/19/18 05:13 05:13 05:13 WBC 7.6 RBC 3.02 L Hgb 8.9 L Hct 26.9 L MCV 89 MCH 29.5 MCHC 33.2 RDW 15.3 H Plt Count 228 Seg Neutrophils % 59.3 Lymphocytes % 24.1 Monocytes % 10.9 Eosinophils % 4.7 Basophils % 1.0 Absolute Neutrophils 4.5 Absolute Lymphocytes 1.8 Absolute Monocytes 0.8 Absolute Eosinophils 0.4 Absolute Basophils 0.1 Sodium 137.2 Potassium 4.5 Chloride 104 Carbon Dioxide 28 Anion Gap 5 BUN 30 H Creatinine 1.64 H Est GFR ( Amer) 38 L Est GFR (Non-Af Amer) 32 L Glucose 101 Calcium 8.8 Magnesium 2.1 Total Bilirubin 0.2 AST 29 ALT 18 Alkaline Phosphatase 85 Total Protein 6.5 Albumin 3.2 L 07/17/18 07/17/18 07/17/18 06:30 13:59 13:59 Creatine Kinase 36 CK-MB (CK-2) 0.37 Troponin I < 0.012 < 0.012 NT-Pro-B Natriuret Pep 650 07/17/18 07/17/18 07/18/18 18:44 18:44 00:28 Creatine Kinase 25 L 29 L CK-MB (CK-2) 0.32 Troponin I < 0.012 NT-Pro-B Natriuret Pep 07/18/18 00:28 Creatine Kinase CK-MB (CK-2) 0.31 Troponin I < 0.012 NT-Pro-B Natriuret Pep Impressions: Chest X-Ray 07/18/18 06:00 IMPRESSION: Chronic interstitial changes. No infiltrate. Assessment & Plan - Diagnosis (1) Acute and chronic respiratory failure with hypercapnia Is this a current diagnosis for this admission?: Yes Plan: 07/17/2018-patient's VBG in the ER pH is 7.27 PCO2 70. Patient was placed on BiPAP. Plan is to put her in IMCU. To use the BiPAP as needed basis. Chest x- ray shows bilateral pulmonary hypodensities. Going to request for a pulmonary consult. Blood cultures are pending. I started on Invanz 1 g daily. She is going to get a scheduled nebulizations. BiPAP as needed. She was also started on Xopenex nebulizations every 4 as needed. A request for incentive spirometry. Planning to do the ABG on daily basis. Going to check for the patient's need for home oxygen. 07/18/2018-ABG done yesterday pH is 7.35/PCO2 52/PO2 80 bicarb is 28. Acute respiratory failure with hypercapnia is resolving. Blood cultures are negative so far. Patient is on Invanz 1 g IV daily. She is also on scheduled nebulizations. She is does not have to use the BiPAP last night. And is to continue the present management. IV Solu-Medrol was decreased to 40 mg daily. 07/19/2018-patient is admitted with acute on chronic respiratory failure with hypercapnia. Hypercapnia resolved. Patient's pulse ox on room air is 96%. Cultures are negative. Patient is on IV Solu-Medrol I am going to discontinue IV Solu-Medrol today. Patient is not requiring BiPAP anymore. Patient is on Invanz 1 g IV daily. The cultures are negative so far. Patient is afebrile. (2) COPD exacerbation Is this a current diagnosis for this admission?: Yes Plan: 07/17/2018 patient has history of COPD not on home oxygen. We are going to check her home oxygen requirements once he is stable. I started her on IV Solu-Medrol 40 mg every 8 hours. She is also placed on scheduled nebulizations. We are going to use the BiPAP and as-needed basis. We are going to do the daily ABGs. COPD secondary to smoking. she is a Ex-smoker. 07/18/2018-patient has history of COPD not on home oxygen. She is doing much better. She does not have to use the BiPAP last night. Pulse ox 100% on 3.4 L. ABG shows resolving hypercapnia. We are going to check with home oxygen needs. Plan is to continue the present management. 07/19/2018-patient has a COPD pulse ox are normal today. Is not on BiPAP anymore. (3) Morbid obesity Is this a current diagnosis for this admission?: Yes Plan: 07/17/2018 patient's BMI is more than 45-50. Diet exercise weight loss lifestyle changes recommended. I placed a consult for a dietitian. 07/18/2018 patient weight is 119 kg. Again diet exercise lifestyle modifications weight loss were discussed with the patient for more than 10 minutes. Under dietary consult was also requested. 07/19/2018-patient's BMI is more than 45. Again diet exercise weight loss was advised. (4) Congestive heart failure Is this a current diagnosis for this admission?: Yes Plan: 07/17/2018 recent echocardiogram from 06/24/2018 shows EF of more than 75%. Left ventricular systolic function is normal. As per the glass etcher helper is unable to assess the right ventricle function because of the technical limitations. Patient is not in fluid overload. 07/18/2018-BNP is 650. Patient has 1+ pedal edema. She is on Bumex 2 mg daily. Blood pressure is 100/46. Patient is also saying she is on Zaroxolyn 5 mg po 5 times a day at home. Going to hold Zaroxolyn for now because of the low blood pressures. Decrease Bumex from 2 mg to 1 mg p.o. daily, Because of the low blood pressures. 07/19/2018 BNP 650 she has 1+ pedal edema she is on Bumex 1 mg p.o. daily. Blo od pressure is on the lower side 107/44. It is asymptomatic. Plan is to continue the present management. (5) Acute on chronic renal failure Is this a current diagnosis for this admission?: Yes Plan: 07/17/2018-patient is giving the history of chronic kidney disease Dr. Calderon is her cash posting clerk. Patient's EGFR is 37%. She has stage III kidney disease. Continue to follow the regular renal panel. 07/18/2018-patient has stage III kidney disease admission creatinine is 1.69 it was improved to 1.56 today. I am going to continue to follow the patient renal panel on daily basis. 07/19/2018-patient's admission creatinine is 1.69. Today's creatinine is 1.64. Stable. Plan is to continue the present management. (6) Hypertension Qualifiers: Hypertension type: essential hypertension Qualified Code(s): I10 - Essential (primary) hypertension Is this a current diagnosis for this admission?: Yes - Time Time Spent with patient: 15-24 minutes Medications reviewed and adjusted accordingly: Yes Anticipated discharge: Home
[2018-07-19] MEDS: PROMETHAZINE HCL 25 MG TABLET PO PRN (15:44)
[2018-07-19] MEDS: TIOTROPIUM BROMIDE DPI 5 CAP/KIT (18 MCG/CAP) IH SCH (17:51)
[2018-07-19] MEDS: ZOLPIDEM TARTRATE 5 MG TABLET PO SCH (22:08)
[2018-07-19] MEDS: FAMOTIDINE INJ/PF 20 MG/2 ML SDV IV SCH (22:09)
[2018-07-19] MEDS: CETIRIZINE 5 MG TABLET PO SCH (22:10)
[2018-07-19] MEDS: ATORVASTATIN CALCIUM 20 MG TABLET PO SCH (22:10)
[2018-07-19] MEDS: RAMIPRIL 2.5 MG CAPSULE PO SCH (22:11)
[2018-07-20] MEDS: LEVALBUTEROL HCL NEB 0.63 MG/3 ML AMPUL NEB SCH ×2 (04:16→08:21)
[2018-07-20] MEDS: PRIMIDONE 50 MG TABLET PO SCH (05:27)
[2018-07-20] MEDS: LEVOTHYROXINE SODIUM 0.1 MG TABLET PO SCH (05:27)
[2018-07-20] MEDS: HYDROMORPHONE HCL 2 MG TABLET PO PRN ×2 (05:27→09:51)
[2018-07-20] MEDS: LEVOTHYROXINE SODIUM 0.05 MG TABLET PO SCH (05:28)
[2018-07-20 06:18] LABS: ABSOLUTE EOSINOPHILS # (AUTO) 0.3 10^3/uL (0.0-0.6); ABSOLUTE LYMPHOCYTES (AUTO) 1.4 10^3/uL (0.5-4.7); ABSOLUTE MONOCYTES (AUTO) 0.6 10^3/uL (0.1-1.4); ABSOLUTE NEUT (AUTO) 3.8 10^3/uL (1.7-8.2); BASOPHILS % (AUTO) 0.6 % (0-2); EOSINOPHILS % (AUTO) 4.7 % (0-6); HEMATOCRIT 25.3 % (36.0-47.0); HEMOGLOBIN 8.5 g/dL (12.0-15.5); LYMPHOCYTES % (AUTO) 23.5 % (13-45); MEAN CORPUSCULAR HEMOGLOBIN 30.2 pg (27.0-33.4); MEAN CORPUSCULAR HGB CONC 33.7 g/dL (32.0-36.0); MEAN CORPUSCULAR VOLUME 90 fl (80-97); MONOCYTES % (AUTO) 9.8 % (3-13); PLATELET COUNT 205 10^3/uL (150-450); RED BLOOD COUNT 2.83 10^6/uL (3.72-5.28); SEGMENTED NEUTROPHILS % (AUTO) 61.4 % (42-78); TOTAL CELLS COUNTED % (AUTO) 100 %; WHITE BLOOD COUNT 6.2 10^3/uL (4.0-10.5)
[2018-07-20] MEDS ORDERED: ERGOCALCIFEROL (VITAMIN D2) 50000 UNIT (1.25 MG) CAPSULE PO SCH (08:00)
[2018-07-20] MEDS: DICYCLOMINE HCL 10 MG CAPSULE PO SCH (08:23)
[2018-07-20] MEDS: PROMETHAZINE HCL 25 MG TABLET PO PRN (08:23)
[2018-07-20] MEDS: ALPRAZOLAM 0.5 MG TABLET PO PRN (08:23)
[2018-07-20] MEDS: PRENATAL VITAMIN W DHA CAPSULE PO SCH (09:50)
[2018-07-20] MEDS: METHYLPREDNISOLONE INJ 40 MG/1 ML SDV IV SCH (09:50)
[2018-07-20] MEDS: FLUOXETINE HCL 20 MG CAPSULE PO SCH (09:50)
[2018-07-20] MEDS: DONEPEZIL HCL 5 MG TABLET PO SCH (09:50)
[2018-07-20] MEDS: ROPINIROLE HCL 0.25 MG TABLET PO SCH (09:51)
[2018-07-20] MEDS: MAGNESIUM OXIDE 400 MG TABLET PO SCH (09:51)
[2018-07-20] MEDS: BUMETANIDE 1 MG TABLET PO SCH (09:52)
[2018-07-20] MEDS: FONDAPARINUX SODIUM INJ 7.5 MG/0.6 ML DISP.SYRIN SUBCUT SCH (09:52)
[2018-07-20] MEDS: DULOXETINE HCL 20 MG CAPSULE.DR PO SCH (09:52)
[2018-07-20] MEDS: DOXEPIN HCL 25 MG CAPSULE PO SCH (09:53)
[2018-07-20] MEDS: FLUTICASONE NASAL SPRAY 50 MCG/SPRY 120 SPRAY/16 GM NASL SCH (09:53)
[2018-07-20] MEDS: FLUTICASONE/SALMETEROL DISKUS 250-50 MCG/DOSE IH SCH (09:53)
[2018-07-20 10:19] VITALS: BP 110/54
--- NOTE | 2018-07-20 15:22 | PDOC DISCHARGE SUMMARY ---
General - Admit/Disc Date/PCP Admission Date/Primary Care Provider: 07/17/18 09:02 MARK HAILE MD Discharge Date: 07/20/18 - Discharge Diagnosis (1) Acute and chronic respiratory failure with hypercapnia Is this a current diagnosis for this admission?: Yes Summary: 07/17/2018-patient's VBG in the ER pH is 7.27 PCO2 70. Patient was placed on BiPAP. Plan is to put her in IMCU. To use the BiPAP as needed basis. Chest x- ray shows bilateral pulmonary hypodensities. Going to request for a pulmonary consult. Blood cultures are pending. I started on Invanz 1 g daily. She is going to get a scheduled nebulizations. BiPAP as needed. She was also started on Xopenex nebulizations every 4 as needed. A request for incentive spirometry. Planning to do the ABG on daily basis. Going to check for the patient's need for home oxygen. 07/18/2018-ABG done yesterday pH is 7.35/PCO2 52/PO2 80 bicarb is 28. Acute respiratory failure with hypercapnia is resolving. Blood cultures are negative so far. Patient is on Invanz 1 g IV daily. She is also on scheduled nebulizations. She is does not have to use the BiPAP last night. And is to continue the present management. IV Solu-Medrol was decreased to 40 mg daily. 07/19/2018-patient is admitted with acute on chronic respiratory failure with hypercapnia. Hypercapnia resolved. Patient's pulse ox on room air is 96%. Cultures are negative. Patient is on IV Solu-Medrol I am going to discontinue IV Solu-Medrol today. Patient is not requiring BiPAP anymore. Patient is on Invanz 1 g IV daily. The cultures are negative so far. Patient is afebrile. 07/20/2018 patient was admitted with acute on chronic respiratory failure with hypercapnia hypercapnia was resolved pulse ox on room air is 96%. Check for pulse oxes to see if you need any home oxygen she does not meet the criteria. During the hospital stay she was treated with IV Solu-Medrol and BiPAP as needed Invanz and change the medications to p.o. prednisone 10 mg p.o. twice daily, levofloxacin 500 mg p.o. daily for 1 week and advise her to use nebulizers at home. Resume home health. (2) COPD exacerbation Is this a current diagnosis for this admission?: Yes Summary: 07/17/2018 patient has history of COPD not on home oxygen. We are going to check her home oxygen requirements once he is stable. I started her on IV Solu- Medrol 40 mg every 8 hours. She is also placed on scheduled nebulizations. We are going to use the BiPAP and as-needed basis. We are going to do the daily ABGs. COPD secondary to smoking. she is a Ex-smoker. 07/18/2018-patient has history of COPD not on home oxygen. She is doing much better. She does not have to use the BiPAP last night. Pulse ox 100% on 3.4 L. ABG shows resolving hypercapnia. We are going to check with home oxygen needs. Plan is to continue the present management. 07/19/2018-patient has a COPD pulse ox are normal today. Is not on BiPAP anymore. 07/20/2018-patient has history of COPD not on home oxygen pulse ox are 96% on room air she does not qualify for home oxygen. Treated for COPD exacerbation which was resolved. (3) Morbid obesity Is this a current diagnosis for this admission?: Yes Summary: 07/17/2018 patient's BMI is more than 45-50. Diet exercise weight loss lifestyle changes recommended. I placed a consult for a dietitian. 07/18/2018 patient weight is 119 kg. Again diet exercise lifestyle modifications weight loss were discussed with the patient for more than 10 minutes. Under dietary consult was also requested. 07/19/2018-patient's BMI is more than 45. Again diet exercise weight loss was advised. (4) Congestive heart failure Is this a current diagnosis for this admission?: Yes Summary: 07/17/2018 recent echocardiogram from 06/24/2018 shows EF of more than 75%. Left ventricular systolic function is normal. As per the senior product analyst is unable to assess the right ventricle function because of the technical limitations. Patient is not in fluid overload. 07/18/2018-BNP is 650. Patient has 1+ pedal edema. She is on Bumex 2 mg daily. Blood pressure is 100/46. Patient is also saying she is on Zaroxolyn 5 mg po 5 times a day at home. Going to hold Zaroxolyn for now because of the low blood pressures. Decrease Bumex from 2 mg to 1 mg p.o. daily, Because of the low blood pressures. 07/19/2018 BNP 650 she has 1+ pedal edema she is on Bumex 1 mg p.o. daily. Blood pressure is on the lower side 107/44. It is asymptomatic. Plan is to co ntinue the present management. 07/20/2018-patient history of congestive heart failure patient is on Bumex and Zaroxolyn at home. Echocardiogram was done in [facility] of June shows EF of 75% with left ventricular function normal. Unable to assess the right ventricular function due to technical limitations. It was advised to continue her home medications. (5) Acute on chronic renal failure Is this a current diagnosis for this admission?: Yes Summary: 07/17/2018-patient is giving the history of chronic kidney disease Dr. Calderon is her consultant intern. Patient's EGFR is 37%. She has stage III kidney disease. Continue to follow the regular renal panel. 07/18/2018-patient has stage III kidney disease admission creatinine is 1.69 it was improved to 1.56 today. I am going to continue to follow the patient renal panel on daily basis. 07/19/2018-patient's admission creatinine is 1.69. Today's creatinine is 1.64. Stable. Plan is to continue the present management. 07/20/2018-the latest creatinine is 1.6 was stable patient has a stage III chronic kidney disease. advised to follow-up with Dr. Calderon as an outpatient. (6) Hypertension Is this a current diagnosis for this admission?: Yes Summary: Patient's blood pressure is 129/65 pulse is 93 patient was advised to continue her home medications. - Additional Information Resuscitation Status: Do Not Intubate Discharge Diet: Diabetic Discharge Activity: Activity As Tolerated Home Medications: Albuterol Sulfate [Proair HFA Inhalation Aerosol 8.5 gm MDI] 1 puff IH QIDP PRN 07/17/18 Alprazolam [Xanax 0.5 mg Tablet] 0.5 mg PO TID 07/17/18 Atorvastatin Calcium [Lipitor 20 mg Tablet] 20 mg PO DAILY 07/17/18 Bumetanide [Bumex 1 mg Tablet] 2 mg PO DAILY 07/17/18 Cyclobenzaprine HCl [Flexeril 10 mg Tablet] 10 mg PO BIDP PRN 07/17/18 Dicyclomine HCl [Bentyl 10 mg Capsule] 10 mg PO TID 07/17/18 Donepezil HCl [Aricept] 10 mg PO DAILY 07/17/18 Doxepin HCl [Sinequan 25 mg Capsule] 50 mg PO QHS 07/17/18 Duloxetine HCl [Cymbalta 20 mg Capsule.dr] 40 mg PO DAILY 07/17/18 Ergocalciferol (Vitamin D2) [Drisdol 50,000 unit (1.25MG) Capsule] 50,000 unit PO [id number] 07/17/18 Fluoxetine HCl [Prozac] 80 mg PO DAILY 07/17/18 Fluticasone Propionate [Flonase Nasal Wishon 50 Mcg/Wishon 16 gm] 1 spray NASL DAILYP PRN 07/17/18 Fluticasone/Salmeterol [Advair 250-50 Diskus 14 Dose/Diskus] 1 puff IH Q12 07/17/18 Fondaparinux Sodium [Arixtra Inj 7.5 mg/0.6 ml Disp. Syrin] 7.5 mg SUBCUT DAILY 07/17/18 Hydromorphone HCl [Exalgo] 16 mg PO DAILY 07/17/18 Hydromorphone HCl [Exalgo] 32 mg PO QHS 07/17/18 Levocetirizine Dihydrochloride [Xyzal] 5 mg PO DAILY 07/17/18 Levothyroxine Sodium 25 mcg PO DAILY 07/17/18 Levothyroxine Sodium 200 mcg PO QAM 07/17/18 Magnesium Oxide [Mag-Ox 400 mg Tablet] 400 mg PO DAILY 07/17/18 Metolazone [Zaroxolyn 5 mg Tablet] 5 mg PO MOTUWETHFR@1000 07/17/18 Nystatin [Mycostatin Topical Powder 15 gm] 1 applic TP BIDP PRN 07/17/18 Oxycodone HCl/Acetaminophen [Percocet 10-325 mg Tablet] 1 each PO QID 07/17/18 Pnv No.95/Ferrous Fum/Folic AC [ Multivitamin Tablet] 1 each PO DAILY 07/17/18 Potassium Chloride 20 meq PO DAILY 07/17/18 Primidone [Mysoline 50 mg Tablet] 50 mg PO TID 07/17/18 Promethazine HCl [Phenergan 25 mg Tablet] 25 mg PO Q8HP PRN 07/17/18 Ramipril [Altace 2.5 mg Capsule] 2.5 mg PO QHS 07/17/18 Ropinirole HCl [Requip 0.25 mg Tablet] 0.25 mg PO BID 07/17/18 Suvorexant [Belsomra] 20 mg PO HSP PRN 07/17/18 Tiotropium [place] [Spiriva Handihaler 5 Cap/Kit (18 Mcg/Cap)] 1 cap IH DAILY 07/17/18 Fluticasone/Salmeterol [Advair 250-50 Diskus 14 Dose/Diskus] 1 inh IH Q12 inhaler 07/20/18 Fondaparinux Sodium [Arixtra Inj 7.5 mg/0.6 ml Disp. Syrin] 7.5 mg SUBCUT DAILY disp.syrin 07/20/18 Hydromorphone HCl [Dilaudid 2 mg Tablet] 4 mg PO Q4HP PRN tablet 07/20/18 Magnesium Oxide [Mag-Ox 400 mg Tablet] 400 mg PO DAILY tablet 07/20/18 Primidone [Mysoline 50 mg Tablet] 50 mg PO Q8 tablet 07/20/18 Ramipril [Altace 2.5 mg Capsule] 2.5 mg PO QHS capsule 07/20/18 Ropinirole HCl [Requip 0.25 mg Tablet] 0.25 mg PO Q12 tablet 07/20/18 Tiotropium [place] [Spiriva Handihaler 5 Cap/Kit (18 Mcg/Cap)] 1 cap IH QPM kit 07/20/18 Zolpidem Tartrate [Ambien 5 mg Tablet] 5 mg PO QHS tablet 07/20/18 History of Present Illness History of Present Illness: LEATHA ATKINS is a 62 year old female patient was here in this hospital 2 weeks ago for COPD exacerbation and pneumonia she was discharged home on p.o. antibiotics and p.o. prednisone as per the patient she is not back to baseline and continued to have shortness of breath and occasional wheezing episodes since yesterday the symptoms gotten worse came to the emergency room for further evaluation. Denies any fever denies any chills but complaining of cough nonproductive cough. Denies any nausea vomiting's. Complains of loose stools as 5 loose stools yesterday. Any upper respiratory tract symptoms. Any headaches dizzy spells. Any home oxygen. Nebulizers at home it did not help her at all last night. Denies any rashes on the skin. Emergency room the VBG was done. She is 7.27 PCO2 70.3 bicarb is 31 and as she was placed on BiPAP and medical consult was called for admission. Spoke to the patient at bedside in the ER she is on still on BiPAP able to communicating well and able to give a detailed history. Physical Exam Vital Signs: Temp Pulse Resp BP Pulse Ox 98.4 F 93 17 110/54 L 92 07/20/18 10:16 07/20/18 10:16 07/20/18 10:16 07/20/18 10:16 07/20/18 10:16 Intake & Output 07/19/18 07/20/18 07/21/18 06:59 06:59 06:59 Intake Total 572 823 Output Total 775 1250 Balance -203 -427 Weight 117.9 kg 119.5 kg General appearance: PRESENT: no acute distress Head exam: PRESENT: atraumatic Eye exam: PRESENT: PERRLA Mouth exam: PRESENT: moist Neck exam: ABSENT: carotid bruit, JVD, lymphadenopathy, thyromegaly Respiratory exam: PRESENT: clear to auscultation allison, decreased breath sounds. ABSENT: rales, rhonchi, wheezes Cardiovascular exam: PRESENT: RRR. ABSENT: diastolic murmur, rubs, systolic [place] Neurological exam: PRESENT: alert, awake, oriented to person, oriented to place, oriented to time, oriented to situation, CN II-XII grossly intact. ABSENT: motor sensory deficit Psychiatric exam: PRESENT: appropriate affect, normal mood. ABSENT: homicidal ideation, suicidal ideation Results Laboratory Results: 07/20/18 05:11 07/19/18 05:13 07/20/18 07/20/18 05:11 05:11 WBC 6.2 RBC 2.83 L Hgb 8.5 L Hct 25.3 L MCV 90 MCH 30.2 MCHC 33.7 RDW 15.0 H Plt Count 205 Seg Neutrophils % 61.4 Lymphocytes % 23.5 Monocytes % 9.8 Eosinophils % 4.7 Basophils % 0.6 Absolute Neutrophils 3.8 Absolute Lymphocytes 1.4 Absolute Monocytes 0.6 Absolute Eosinophils 0.3 Absolute Basophils 0.0 Magnesium 2.0 07/17/18 06:52 Catheterized Urine Urine Culture - Final NO GROWTH 2 DAYS 07/17/18 07/17/18 07/17/18 06:30 13:59 13:59 Creatine Kinase 36 CK-MB (CK-2) 0.37 Troponin I < 0.012 < 0.012 NT-Pro-B Natriuret Pep 650 07/17/18 07/17/18 07/18/18 18:44 18:44 00:28 Creatine Kinase 25 L 29 L CK-MB (CK-2) 0.32 Troponin I < 0.012 NT-Pro-B Natriuret Pep 07/18/18 07/20/18 00:28 05:11 Creatine Kinase CK-MB (CK-2) 0.31 Troponin I < 0.012 NT-Pro-B Natriuret Pep 910 H Impressions: Chest X-Ray 07/18/18 06:00 IMPRESSION: Chronic interstitial changes. No infiltrate. Qualifiers - * PATIENT BEING DISCHARGED WITH ANY OF THE FOLLOWING DIAGNOSIS: No VTE patient discharged on overlapping Therapy?: Yes
--- NOTE | 2018-07-21 10:12 | PDOC CONSULTATION ---
Consultation Consult Date: 07/17/18 Attending physician:: MARIBEL COOK Consult reason:: Dyspnea History of Present Illness Admission Date/PCP: 07/17/18 09:02 MARK HAILE MD History of Present Illness: LEATHA ATKINS is a 62 year old female; extensive history of COPD that is post exacerbation of COPD with pneumonia returns today complaining increasing shortness of breath denies nausea vomiting fevers chills rhinorrhea sore throat chest pain or edema she does admit to to 3 days of diarrhea she denies any rash she has approximately 19-dayf-foyn history of smoking but has not smoked in the last 24 months she has no pets no recent travel she denies angina-like chest pain sleeps on 3 2-3 pillows occasional PND occasional nocturnal cough she is unaware of any snoring Past Medical History Cardiac Medical History: Reports: Congestive Heart Failure, Hyperlipidema, Hypertension Denies: Coronary Artery Disease - HIGH CHOLESTEROL Pulmonary Medical History: Reports: Asthma, Bronchitis, Chronic Obstructive Pulmonary Disease (COPD), Pneumonia Denies: Tuberculosis Neurological Medical History: Reports: Ischemic CVA Denies: Seizures Endocrine Medical History: Reports: Hypothyroidism Renal/ Medical History: Reports: Chronic Kidney Disease Psychiatric Medical History: Reports: Depression, General Anxiety Disorder Hematology: Denies: Anemia Infectious Medical History: Denies: HIV Past Surgical History Past Surgical History: Reports: Hysterectomy, Tubal Ligation Social History Information Source: [facility] Records Smoking Status: Former Smoker Frequency of Alcohol Use: None Hx Recreational Drug Use: No Drugs: None Hx Prescription Drug Abuse: No Do you have pets?: No - Advance Directive Resuscitation Status: Do Not Intubate Family History Parental Family History Reviewed: No Children Family History Reviewed: No Sibling(s) Family History Reviewed.: No Medication/Allergy Home Medications: Albuterol Sulfate [Proair HFA Inhalation Aerosol 8.5 gm MDI] 1 puff IH QIDP PRN 07/17/18 Alprazolam [Xanax 0.5 mg Tablet] 0.5 mg PO TID 07/17/18 Atorvastatin Calcium [Lipitor 20 mg Tablet] 20 mg PO DAILY 07/17/18 Bumetanide [Bumex 1 mg Tablet] 2 mg PO DAILY 07/17/18 Cyclobenzaprine HCl [Flexeril 10 mg Tablet] 10 mg PO BIDP PRN 07/17/18 Dicyclomine HCl [Bentyl 10 mg Capsule] 10 mg PO TID 07/17/18 Donepezil HCl [Aricept] 10 mg PO DAILY 07/17/18 Doxepin HCl [Sinequan 25 mg Capsule] 50 mg PO QHS 07/17/18 Duloxetine HCl [Cymbalta 20 mg Capsule.dr] 40 mg PO DAILY 07/17/18 Ergocalciferol (Vitamin D2) [Drisdol 50,000 unit (1.25MG) Capsule] 50,000 unit PO [id number] 07/17/18 Fluoxetine HCl [Prozac] 80 mg PO DAILY 07/17/18 Fluticasone Propionate [Flonase Nasal [place] 50 Mcg/[place] 16 gm] 1 spray NASL DAILYP PRN 07/17/18 Fluticasone/Salmeterol [Advair 250-50 Diskus 14 Dose/Diskus] 1 puff IH Q12 07/17/18 Fondaparinux Sodium [Arixtra Inj 7.5 mg/0.6 ml Disp. Syrin] 7.5 mg SUBCUT DAILY 07/17/18 Hydromorphone HCl [Exalgo] 16 mg PO DAILY 07/17/18 Hydromorphone HCl [Exalgo] 32 mg PO QHS 07/17/18 Levocetirizine Dihydrochloride [Xyzal] 5 mg PO DAILY 07/17/18 Levothyroxine Sodium 25 mcg PO DAILY 07/17/18 Levothyroxine Sodium 200 mcg PO QAM 07/17/18 Magnesium Oxide [Mag-Ox 400 mg Tablet] 400 mg PO DAILY 07/17/18 Metolazone [Zaroxolyn 5 mg Tablet] 5 mg PO MOTUWETHFR@1000 07/17/18 Nystatin [Mycostatin Topical Powder 15 gm] 1 applic TP BIDP PRN 07/17/18 Oxycodone HCl/Acetaminophen [Percocet 10-325 mg Tablet] 1 each PO QID 07/17/18 Pnv No.95/Ferrous Fum/Folic AC [ Multivitamin Tablet] 1 each PO DAILY 07/17/18 Potassium Chloride 20 meq PO DAILY 07/17/18 Primidone [Mysoline 50 mg Tablet] 50 mg PO TID 07/17/18 Promethazine HCl [Phenergan 25 mg Tablet] 25 mg PO Q8HP PRN 07/17/18 Ramipril [Altace 2.5 mg Capsule] 2.5 mg PO QHS 07/17/18 Ropinirole HCl [Requip 0.25 mg Tablet] 0.25 mg PO BID 07/17/18 Suvorexant [Belsomra] 20 mg PO HSP PRN 07/17/18 Tiotropium [place] [Spiriva Handihaler 5 Cap/Kit (18 Mcg/Cap)] 1 cap IH DAILY 07/17/18 Fluticasone/Salmeterol [Advair 250-50 Diskus 14 Dose/Diskus] 1 inh IH Q12 inhaler 07/20/18 Fondaparinux Sodium [Arixtra Inj 7.5 mg/0.6 ml Disp. Syrin] 7.5 mg SUBCUT DAILY disp.syrin 07/20/18 Hydromorphone HCl [Dilaudid 2 mg Tablet] 4 mg PO Q4HP PRN tablet 07/20/18 Magnesium Oxide [Mag-Ox 400 mg Tablet] 400 mg PO DAILY tablet 07/20/18 Primidone [Mysoline 50 mg Tablet] 50 mg PO Q8 tablet 07/20/18 Ramipril [Altace 2.5 mg Capsule] 2.5 mg PO QHS capsule 07/20/18 Ropinirole HCl [Requip 0.25 mg Tablet] 0.25 mg PO Q12 tablet 07/20/18 Tiotropium [place] [Spiriva Handihaler 5 Cap/Kit (18 Mcg/Cap)] 1 cap IH QPM kit 07/20/18 Zolpidem Tartrate [Ambien 5 mg Tablet] 5 mg PO QHS tablet 07/20/18 Allergies/Adverse Reactions: pregabalin [From Lyrica] Allergy (Unknown, Verified 07/17/18 07:41) trazodone HCl [From Desyrel] Allergy (Unknown, Verified 07/17/18 07:41) cephalexin monohydrate [From Keflex] Adverse Reaction (Verified 07/17/18 07:41) nausea, vomiting erythromycin base [Erythromycin Base] Adverse Reaction (Verified 07/17/18 07:41) nausea, vomiting Review of Systems Constitutional: PRESENT: anorexia. ABSENT: night sweats, weight gain, weight loss Eyes: ABSENT: visual disturbances Ears: ABSENT: hearing changes Nose, Mouth, and Throat: ABSENT: sore throat Cardiovascular: PRESENT: dyspnea on exertion, orthropnea. ABSENT: palpitations Respiratory: PRESENT: cough, dyspnea. ABSENT: hemoptysis Gastrointestinal: PRESENT: diarrhea. ABSENT: hematemesis, hematochezia, melena Genitourinary: ABSENT: dysuria, hematuria Musculoskeletal: ABSENT: deformity, joint swelling Integumentary: ABSENT: pruritus, rash Neurological: ABSENT: abnormal speech, confusion, memory loss Psychiatric: ABSENT: hallucinations, homidical ideation, suicidal ideation Endocrine: ABSENT: cold intolerance, heat intolerance Hematologic/Lymphatic: ABSENT: lymphadenopathy Allergic/Immunologic: ABSENT: seasonal rhinorrhea Physical Exam Vital Signs: Temp Pulse Resp BP Pulse Ox 98.5 F 89 18 114/45 L 100 07/18/18 11:39 07/18/18 11:39 07/18/18 11:39 07/18/18 11:39 07/18/18 11:39 Intake & Output 07/17/18 07/18/18 07/19/18 06:59 06:59 06:59 Intake Total 912 350 Output Total 1050 100 Balance -138 250 Weight 120 kg 118.9 kg General appearance: PRESENT: no acute distress, cooperative, disheveled, morbidly obese Head exam: PRESENT: atraumatic, normocephalic Eye exam: PRESENT: conjunctiva pale, EOMI. ABSENT: nystagmus, scleral icterus Mouth exam: PRESENT: moist, tongue midline Neck exam: ABSENT: carotid bruit, JVD, lymphadenopathy, thyromegaly, tracheal deviation, tracheostomy Respiratory exam: PRESENT: decreased breath sounds, prolonged expiratory phas, rales, rhonchi, symmetrical, unlabored, wheezes. ABSENT: stridor, tachypnea Cardiovascular exam: PRESENT: RRR, +S1, +S2 Pulses: PRESENT: normal radial pulses GI/Abdominal exam: PRESENT: soft. ABSENT: tenderness Extremities exam: PRESENT: pedal edema. ABSENT: calf tenderness, clubbing, joint swelling Musculoskeletal exam: ABSENT: deformity, dislocation Neurological exam: PRESENT: awake Psychiatric exam: PRESENT: appropriate affect Skin exam: PRESENT: dry, warm Results Laboratory Results: 07/18/18 05:59 07/18/18 05:59 07/18/18 07/18/18 07/18/18 05:59 05:59 05:59 WBC 8.2 RBC 2.98 L Hgb 8.9 L Hct 26.2 L MCV 88 MCH 29.9 MCHC 34.1 RDW 14.8 H Plt Count 236 Seg Neutrophils % 82.4 H Lymphocytes % 12.0 L Monocytes % 5.1 Eosinophils % 0.2 Basophils % 0.3 Absolute Neutrophils 6.8 Absolute Lymphocytes 1.0 Absolute Monocytes 0.4 Absolute Eosinophils 0.0 Absolute Basophils 0.0 Sodium 137.4 Potassium 5.1 H Chloride 104 Carbon Dioxide 26 Anion Gap 7 BUN 31 H Creatinine 1.56 H Est GFR ( Amer) 40 L Est GFR (Non-Af Amer) 33 L Glucose 125 H Calcium 8.6 Magnesium 2.0 Total Bilirubin 0.3 AST 15 ALT 15 Alkaline Phosphatase 86 Total Protein 6.2 L Albumin 3.1 L Triglycerides 55 Cholesterol 142.12 LDL Cholesterol Direct 76 VLDL Cholesterol 11.0 HDL Cholesterol 55 TSH 0.41 L 07/17/18 07/17/18 07/17/18 06:30 13:59 13:59 Creatine Kinase 36 CK-MB (CK-2) 0.37 Troponin I < 0.012 < 0.012 NT-Pro-B Natriuret Pep 650 07/17/18 07/17/18 07/18/18 18:44 18:44 00:28 Creatine Kinase 25 L 29 L CK-MB (CK-2) 0.32 Troponin I < 0.012 NT-Pro-B Natriuret Pep 07/18/18 00:28 Creatine Kinase CK-MB (CK-2) 0.31 Troponin I < 0.012 NT-Pro-B Natriuret Pep Impressions: Chest X-Ray 07/18/18 06:00 IMPRESSION: Chronic interstitial changes. No infiltrate. Assessment & Plan - Diagnosis (1) Acute and chronic respiratory failure with hypercapnia Is this a current diagnosis for this admission?: Yes Plan: On invasive positive pressure ventilation as necessary duration patient may be eligible for trilogy continue current bronchodilator therapy (2) Acute exacerbation of CHF (congestive heart failure) Qualifiers: Heart failure type: diastolic Qualified Code(s): I50.33 - Acute on chronic diastolic (congestive) heart failure Is this a current diagnosis for this admission?: Yes Plan: Diuretic plus minus inotropic agent (3) HCAP (healthcare-associated pneumonia) Is this a current diagnosis for this admission?: Yes Plan: Mandatory antibiotics as dictated (4) Hypertension Qualifiers: Hypertension type: essential hypertension Qualified Code(s): I10 - Essential (primary) hypertension Is this a current diagnosis for this admission?: Yes Plan: stAble at this time
== END 2018-07-20 10:54 | disposition home health service (06) | DRG 190 ==
LOC: ER 06:10 → EH 09:02 → 3W 13:16
PROVIDERS: ADMIT Internal Medicine; ATTEND Internal Medicine
PROC: 5A09457 Assistance with Respiratory Ventilation, 24-96 Consecutive Hours, Continuous Positive Airway Pressure (ICD-10-PCS; principal; 2018-07-17)
PROC: 3E0F73Z Introduction of Anti-inflammatory into Respiratory Tract, Via Natural or Artificial Opening (ICD-10-PCS; 2018-07-17)
DX: J44.1 Chronic obstructive pulmonary disease with (acute) exacerbation (principal); J96.22 Acute and chronic respiratory failure with hypercapnia; I50.33 Acute on chronic diastolic (congestive) heart failure; J18.9 Pneumonia, unspecified organism; Z68.42 Body mass index [BMI] 45.0-49.9, adult; N17.9 Acute kidney failure, unspecified; I13.0 Hypertensive heart and chronic kidney disease with heart failure and stage 1 through stage 4 chronic kidney disease, or unspecified chronic kidney disease; E66.01 Morbid (severe) obesity due to excess calories; N18.3 Chronic kidney disease, stage 3 (moderate); Z66 Do not resuscitate; E03.9 Hypothyroidism, unspecified; F32.9 Major depressive disorder, single episode, unspecified; F41.1 Generalized anxiety disorder; E78.00 Pure hypercholesterolemia, unspecified; Z79.899 Other long term (current) drug therapy; Z86.73 Personal history of transient ischemic attack (TIA), and cerebral infarction without residual deficits; Z90.710 Acquired absence of both cervix and uterus; Z87.891 Personal history of nicotine dependence; Z88.6 Allergy status to analgesic agent; Z88.1 Allergy status to other antibiotic agents; Z88.3 Allergy status to other anti-infective agents; Z88.8 Allergy status to other drugs, medicaments and biological substances
CPT/HCPCS: 36415; 36600; 71045; 80053; 80061; 80307; 81001; 82550; 82553; 82803; 82962; 83036; 83605; 83735; 83880; 84443; 84484; 85025; 85610; 87040; 87086; 87804; 93005; 93010; 94640; 94660; 94799; 96365; 99291; G8978-GP; G8979-GP; J1335; J1650; J1652; J2920; J3475; J3490; J7614; J7620; S0028

== ENCOUNTER 2018-07-27 05:44 | Inpatient (IN) | payer MEDICARE, OTHER ==
[2018-07-27] MEDS ORDERED: IPRATROPIUM/ALBUTEROL 0.5-2.5 MG/3 ML AMPUL NEB ONE (05:50)
--- NOTE | 2018-07-27 05:54 | ER Document Report ---
ED Medical Screen (RME) - General Stated Complaint: DIFFICULTY BREATHING Time Seen by Provider: 07/27/18 05:49 Notes: 63-year-old female with a history of CVA, COPD that comes to the emergency department for chief complaint of difficulty breathing over the past day. Found to have a fever of 103, given 975 mg of Tylenol and 1 DuoNeb, EMS comes with her on CPAP. Found initially with oxygen saturation in the 70s. Her called EMS. She is not on home oxygen. States she was diagnosed with pneumonia, hospitalized, but not sent home without antibiotics, not currently on antibiotics. Denies ever being intubated. TRAVEL OUTSIDE OF THE [place] IN LAST 30 DAYS: No - Related Data Allergies/Adverse Reactions: pregabalin [From Lyrica] Allergy (Unknown, Verified 07/17/18 07:41) trazodone HCl [From Desyrel] Allergy (Unknown, Verified 07/17/18 07:41) cephalexin monohydrate [From Keflex] Adverse Reaction (Verified 07/17/18 07:41) nausea, vomiting erythromycin base [Erythromycin Base] Adverse Reaction (Verified 07/17/18 07:41) nausea, vomiting Past Medical History - Past Medical History Cardiac Medical History: Reports: Hx Congestive Heart Failure, Hx Hypercholesterolemia, Hx Hypertension Denies: Hx Coronary Artery Disease - HIGH CHOLESTEROL Pulmonary Medical History: Reports: Hx Asthma, Hx Bronchitis, Hx COPD, Hx Pneumonia Denies: Hx Tuberculosis Neurological Medical History: Reports: Hx Cerebrovascular Accident - 7 YEARS AGO HAS "MEMORY ISSUES" "STROKE X5. Denies: Hx Seizures Endocrine Medical History: Reports: Hx Hypothyroidism Renal/ Medical History: Reports: Hx Renal Insufficiency. Denies: Hx Perito lyndsey Dialysis Psychiatric Medical History: Reports: Hx Depression Infectious Medical History: Denies: Hx HIV Past Surgical History: Reports: Hx Dilation and Curettage, Hx Hysterectomy, Hx Tubal Ligation - Immunizations Hx Diphtheria, Pertussis, Tetanus Vaccination: Yes Physical Exam - Respiratory Respiratory status: Respiratory distress, Labored, Tachypnea Breath sounds: Decreased air movement, Rhonchi Course - Re-evaluation Re-evalutation: Loud rhonchi, respiratory distress, febrile. Placed immediately on BiPAP. Doing well on BiPAP at this time. Respiratory rate is slowing down, she is able to speak in full sentences, oxygen is 98% on BiPAP. Workup pending. Doctor's Discharge - Discharge Referrals: MARK HAILE MD [Primary Care Provider] - Follow up as needed
--- NOTE | 2018-07-27 05:57 | ER Document Report ---
ED General - General Stated Complaint: DIFFICULTY BREATHING Time Seen by Provider: 07/27/18 05:49 Notes: Patient is a 63-year-old female with COPD, prior stroke that presents to the emergency department for chief complaint of shortness of breath and difficulty breathing. Patient was recently discharged from the hospital in June after being diagnosed with pneumonia, states she was there for 12 days and finished a course of antibiotics, not discharged home on antibiotics, she does not wear home oxygen, she states that yesterday she started feeling more short of breath in the afternoon, got progressively worse. She is had a cough, but no productive sputum. Per EMS her pulse ox was in the 70s, and she had labored breathing. She also was febrile, she was given 975 mg of Tylenol by EMS as well as well as a breathing treatment. Patient states that she still feeling rather short of breath, she is currently on BiPAP and does feel improved however from when she was at home. She denies having any associated chest pain, nausea, vomiting, abdominal pain, diarrhea, dysuria or hematuria. Past Medical History: CVA, COPD, hypertension, history of multiple CVAs, on Arixtra for this Past Surgical History: Tubal ligation, D&C Social History: Former smoker, denies alcohol or drug use. Family History: Reviewed and noncontributory for presenting illness Allergies: Reviewed, see documented allergy list. REVIEW OF SYSTEMS: Other than noted above, the 12 point review of systems was reviewed with the patient and were negative, all pertinent findings are included in the HPI. PHYSICAL EXAMINATION: Vital signs reviewed, nursing noted reviewed. GENERAL: Obese female, in acute respiratory distress, currently on BiPAP, diaphoretic HEAD: Atraumatic, normocephalic. EYES: Eyes appear normal, extraocular movements intact, sclera anicteric, conjunctiva are normal. ENT: nares patent, oropharynx clear without exudates. Moist mucous membranes. NECK: supple without lymphadenopathy LUNGS: In respiratory distress, coarse lung sounds throughout, increased work of breathing, currently on BiPAP HEART: Heart rate tachycardic, regular rhythm, MAT on telemetry ABDOMEN: Soft, obese, nontender, normoactive bowel sounds. No rebound, guarding, or rigidity. No masses appreciated. EXTREMITIES: Nontender, , 2+ pitting edema bilaterally in the lower extremities NEUROLOGICAL: Left-sided hemiparesis from prior stroke, unchanged. No other new focal neurological deficits, no aphasia, normal movement on the right upper and lower extremities. PSYCH: Appears uncomfortable, but appropriately answering questions SKIN: Warm, Dry, normal turgor, no rashes or lesions noted on exposed skin TRAVEL OUTSIDE OF THE [place] IN LAST 30 DAYS: No - Related Data Allergies/Adverse Reactions: pregabalin [From Lyrica] Allergy (Unknown, Verified 07/17/18 07:41) trazodone HCl [From Desyrel] Allergy (Unknown, Verified 07/17/18 07:41) cephalexin monohydrate [From Keflex] Adverse Reaction (Verified 07/17/18 07:41) nausea, vomiting erythromycin base [Erythromycin Base] Adverse Reaction (Verified 07/17/18 07:41) nausea, vomiting Past Medical History - Social History Smoking Status: Former Smoker Family History: Reviewed & Not Pertinent - Past Medical History Cardiac Medical History: Reports: Hx Congestive Heart Failure, Hx Hypercholesterolemia, Hx Hypertension Denies: Hx Coronary Artery Disease - HIGH CHOLESTEROL Pulmonary Medical History: Reports: Hx Asthma, Hx Bronchitis, Hx COPD, Hx Pneumonia Denies: Hx Tuberculosis Neurological Medical History: Reports: Hx Cerebrovascular Accident - 7 YEARS AGO HAS "MEMORY ISSUES" "STROKE X5. Denies: Hx Seizures Endocrine Medical History: Reports: Hx Hypothyroidism Renal/ Medical History: Reports: Hx Renal Insufficiency. Denies: Hx Peritoneal Dialysis Psychiatric Medical History: Reports: Hx Depression Infectious Medical History: Denies: Hx HIV Past Surgical History: Reports: Hx Dilation and Curettage, Hx Hysterectomy, Hx Tubal Ligation - Immunizations Hx Diphtheria, Pertussis, Tetanus Vaccination: Yes Physical Exam - Vital signs Vitals: Pulse Ox 94 07/27/18 05:47 Course - Re-evaluation Re-evalutation: Patient seen and examined vital signs reviewed. Laboratory data and imaging were ordered as appropriate for the patient's presenting symptoms and complaint, with consideration of any critical or life threatening conditions that may be associated with their obtained history and exam as noted above. Patient was treated with IV fluid bolusing, total of 3 L of IV fluid, based on the patient's ideal body weight, as she is obese, this exceeds the 30 mL/kg IV fluid bolus, she had a normal lactic acid. Although she was tachycardic, and systolic blood pressure has remained above 100. She was started on broad- spectrum IV antibiotics to cover for healthcare associated pneumonia, including vancomycin 2 g, meropenem 1 g, and Levaquin 750 mg, meropenem was used as opposed to Zosyn, patient did have a history of first generation cephalosporin allergy. Blood work was reviewed demonstrated mild leukocytosis of greater than 12,000, and worsening creatinine, from baseline, with a mild JANET. ABG did not demonstrate metabolic acidosis, nor did the bicarb in the chemistry. The patient was re-evaluated and was improved and stable on the BiPAP, will continue to finish her IV fluids, discussed with her results and admission to the hospital. Evaluation was most consistent with sepsis, secondary to healthcare associated pneumonia, AK I, acute respiratory failure requiring noninvasive positive pressure ventilation. Results were discussed with the patient at this point after careful consideration I feel that that patient should be admitted to the hospital. This was discussed with the patient that it is in the best interest for their care to be admitted for further evaluation and management. Patient agreed with this plan of care. A call was placed to the admitted physician, Dr. Ku who graciously accepted the patient onto their service. *Note is created using voice recognition software and may contain spelling, syntax or grammatical errors. Laboratory 07/27/18 07/27/18 07/27/18 05:56 05:56 05:56 WBC 12.2 H RBC 3.20 L Hgb 9.5 L Hct 28.8 L MCV 90 MCH 29.5 MCHC 32.9 RDW 15.4 H Plt Count 220 Seg Neutrophils % 85.7 H Lymphocytes % 6.7 L Monocytes % 5.8 Eosinophils % 1.7 Basophils % 0.1 Absolute Neutrophils 10.4 H Absolute Lymphocytes 0.8 Absolute Monocytes 0.7 Absolute Eosinophils 0.2 Absolute Basophils 0.0 VBG pH VBG pCO2 VBG HCO3 VBG Base Excess Sodium 139.4 Potassium 4.8 Chloride 105 Carbon Dioxide 29 Anion Gap 5 BUN 22 H Creatinine 1.82 H Est GFR ( Amer) 34 L Est GFR (Non-Af Amer) 28 L Glucose 132 H Lactic Acid 0.7 Calcium 8.8 Total Bilirubin 0.3 Direct Bilirubin 0.3 Neonat Total Bilirubin Not Reportable Neonat Direct Bilirubin Not Reportable Neonat Indirect Bili Not Reportable AST 23 ALT 14 Alkaline Phosphatase 104 Troponin I Total Protein 6.9 Albumin 3.4 L 07/27/18 07/27/18 05:56 05:56 WBC RBC Hgb Hct MCV MCH MCHC RDW Plt Count Seg Neutrophils % Lymphocytes % Monocytes % Eosinophils % Basophils % Absolute Neutrophils Absolute Lymphocytes Absolute Monocytes Absolute Eosinophils Absolute Basophils VBG pH 7.33 VBG pCO2 56.2 VBG HCO3 29.2 VBG Base Excess 2.9 Sodium Potassium Chloride Carbon Dioxide Anion Gap BUN Creatinine Est GFR ( Amer) Est GFR (Non-Af Amer) Glucose Lactic Acid Calcium Total Bilirubin Direct Bilirubin Neonat Total Bilirubin Neonat Direct Bilirubin Neonat Indirect Bili AST ALT Alkaline Phosphatase Troponin I < 0.012 Total Protein Albumin Chest X-Ray 07/27/18 05:49 IMPRESSION: Worsening includes mild to moderate mixed interstitial and airspace opacities. 07/27/18 07:52 - Vital Signs Vital signs: Temp Pulse Resp BP Pulse Ox 21 H 114/47 L 96 07/27/18 07:01 07/27/18 07:01 07/27/18 07:01 - Laboratory Result Diagrams: 07/27/18 05:56 07/27/18 05:56 Laboratory results interpreted by me: 07/27/18 07/27/18 05:56 05:56 WBC 12.2 H RBC 3.20 L Hgb 9.5 L Hct 28.8 L RDW 15.4 H Seg Neutrophils % 85.7 H Lymphocytes % 6.7 L Absolute Neutrophils 10.4 H BUN 22 H Creatinine 1.82 H Est GFR ( Amer) 34 L Est GFR (Non-Af Amer) 28 L Glucose 132 H Albumin 3.4 L - EKG Interpretation by Me Additional EKG results interpreted by me: EKG demonstrates multifocal atrial tachycardia with a ventricular rate of 123 bpm, normal axis, QTC 447 ms, there is significant baseline artifact on this EKG, and the presence of artifact, there is no discrete ST changes noted, this is compared with prior EKG from 07/18/2018, where there is significant change. Critical Care Note - Critical Care Note Total time excluding time spent on procedures (mins): 40 Comments: Critical care time 40 minutes exclusive from separate billable procedures for a patient requiring complex medical decision making, and high potential for clinical deterioration. In a patient with sepsis, acute respiratory failure, and pneumonia. Time spent obtaining history from patient or surrogate, discussions with consultants, development of treatment plan with patient or surrogate, evaluation of patient's response to treatment, examination of patient, ordering and performing treatments and interventions, ordering and review of laboratory studies, re-evaluation of patient's condition, ordering and review of radiographic studies and review of old charts Discharge - Discharge Clinical Impression: Healthcare-associated pneumonia, JANET (acute kidney injury), Peripheral edema Sepsis Qualifiers: Sepsis type: sepsis due to unspecified organism Qualified Code(s): A41.9 - Sepsis, unspecified organism Acute respiratory failure Qualifiers: Respiratory failure complication: hypoxia Qualified Code(s): J96.01 - Acute respiratory failure with hypoxia Anemia Qualifiers: Anemia type: unspecified type Qualified Code(s): D64.9 - Anemia, unspecified Condition: Fair Disposition: ADMITTED INPATIENT Admitting Provider: Hospitalist - Dut Unit Admitted: [facility] Referrals: MARK HAILE MD [Primary Care Provider] - Follow up as needed
[2018-07-27 06:10] LABS: ABSOLUTE EOSINOPHILS # (AUTO) 0.2 10^3/uL (0.0-0.6); ABSOLUTE LYMPHOCYTES (AUTO) 0.8 10^3/uL (0.5-4.7); ABSOLUTE MONOCYTES (AUTO) 0.7 10^3/uL (0.1-1.4); ABSOLUTE NEUT (AUTO) 10.4 10^3/uL (1.7-8.2); BASOPHILS % (AUTO) 0.1 % (0-2); EOSINOPHILS % (AUTO) 1.7 % (0-6); HEMATOCRIT 28.8 % (36.0-47.0); HEMOGLOBIN 9.5 g/dL (12.0-15.5); LYMPHOCYTES % (AUTO) 6.7 % (13-45); MEAN CORPUSCULAR HEMOGLOBIN 29.5 pg (27.0-33.4); MEAN CORPUSCULAR HGB CONC 32.9 g/dL (32.0-36.0); MEAN CORPUSCULAR VOLUME 90 fl (80-97); MONOCYTES % (AUTO) 5.8 % (3-13); PLATELET COUNT 220 10^3/uL (150-450); RED CELL DISTRIBUTION WIDTH 15.4 % (11.5-14.0); SEGMENTED NEUTROPHILS % (AUTO) 85.7 % (42-78); TOTAL CELLS COUNTED % (AUTO) 100 %; WHITE BLOOD COUNT 12.2 10^3/uL (4.0-10.5)
[2018-07-27] MEDS ORDERED: RINGERS SOLUTION,LACTATED 1,000 ML IV ONE ×3 (06:14→07:16)
[2018-07-27] MEDS ORDERED: VANCOMYCIN HCL INJ 1000 MG VIAL IV ONE (06:15)
[2018-07-27] MEDS ORDERED: MEROPENEM 1 GM VIAL IV ONE (06:16)
[2018-07-27] MEDS ORDERED: LEVOFLOXACIN 750 MG/D5W RTU 750 MG/150 ML RTUPB IV ONE (06:17)
[2018-07-27 06:25] LABS: VENOUS BLOOD BASE EXCESS 2.9 mmol/L; VENOUS BLOOD HCO3 29.2 mmol/L (20-32); VENOUS BLOOD PCO2 56.2 mmHg (35-63); VENOUS BLOOD PH 7.33 (7.30-7.42)
[2018-07-27 06:46] LABS: ALANINE AMINOTRANSFERASE 14 U/L (9-52); ALBUMIN 3.4 g/dL (3.5-5.0); ALKALINE PHOSPHATASE 104 U/L (38-126); ANION GAP 5 (5-19); ASPARTATE AMINO TRANSFERASE 23 U/L (14-36); BILIRUBIN,DIRECT 0.3 mg/dL (0.0-0.4); BILIRUBIN,TOTAL 0.3 mg/dL (0.2-1.3); BLOOD UREA NITROGEN 22 mg/dL (7-20); CALCIUM 8.8 mg/dL (8.4-10.2); CARBON DIOXIDE 29 mmol/L (22-30); CHLORIDE 105 mmol/L (98-107); GLUCOSE 132 mg/dL (75-110); POTASSIUM 4.8 mmol/L (3.6-5.0); SODIUM 139.4 mmol/L (137-145); TOTAL PROTEIN 6.9 g/dL (6.3-8.2)
--- NOTE | 2018-07-27 06:47 | RADIOLOGY REPORT (SQ) ---
EXAM DESCRIPTION: XR CHEST 1 VIEW COMPLETED DATE/TME: 07/27/2018 05:49 CLINICAL HISTORY: 63 years Female, shortness of breath, fever COMPARISON:07/18/2018 NUMBER OF VIEWS/TECHNIQUE: 1/AP FINDINGS: Moderate interstitial markings, mild patchiness of the right upper lobe, small streaky opacity of the left lower retrocardiac lung, and normal cardiac silhouette. No pneumothorax. Stable bony thorax. IMPRESSION: Worsening includes mild to moderate mixed interstitial and airspace opacities.
[2018-07-27] MEDS ORDERED: METHYLPREDNISOLONE INJ 125 MG/2 ML SDV IV ONE (07:12)
[2018-07-27 08:13] LABS: ARTERIAL BLOOD BASE EXCESS -0.8 mmol/L; ARTERIAL BLOOD H2CO3 1.34 mmol/L (1.05-1.35); ARTERIAL BLOOD HCO3 24.7 mmol/L (20-24); ARTERIAL BLOOD O2 SATURATION 98.2 % (94-98); ARTERIAL BLOOD PCO2 44.6 mmHg (35-45); ARTERIAL BLOOD PH 7.36 (7.35-7.45); ARTERIAL BLOOD PO2 119.7 mmHg (80-100); ARTERIAL BLOOD TOTAL CO2 26.1 mmol/L (21-25)
[2018-07-27 08:14] LABS: ARTERIAL BLOOD FIO2 60%
[2018-07-27 08:37] LABS: APPEARANCE,URINE CLEAR; BILIRUBIN,URINE NEGATIVE (NEGATIVE); COLOR,URINE YELLOW; GLUCOSE, URINE NEGATIVE (NEGATIVE); KETONES,URINE NEGATIVE (NEGATIVE); LEUKOCYTE ESTERASE,URINE NEGATIVE (NEGATIVE); NITRITE,URINE NEGATIVE (NEGATIVE); PROTEIN,URINE NEGATIVE (NEGATIVE); URINE SPECIFIC GRAVITY 1.018; UROBILINOGEN,URINE NEGATIVE mg/dL (<2.0)
[2018-07-27] MEDS ORDERED: GLUCAGON,HUMAN RECOMB 1 MG INJ SUBCUT PRN (08:54)
[2018-07-27] MEDS ORDERED: DEXTROSE 50%-WATER 25 GM/50 ML DISP.SYRIN IV PRN ×2 (08:54)
[2018-07-27] MEDS ORDERED: ACETAMINOPHEN 325 MG TABLET PO PRN (08:54)
[2018-07-27] MEDS ORDERED: DEXTROSE 40% GEL 15 GM TUBE PO PRN ×2 (08:54)
[2018-07-27] MEDS ORDERED: ALBUTEROL SULFATE 0.083% NEB 2.5 MG/3 ML AMPUL NEB PRN (08:54)
[2018-07-27] MEDS ORDERED: VANCOMYCIN HCL 0 MG in DEXTROSE 5%-WATER 250 ML IV NR (09:00)
[2018-07-27] MEDS: FAMOTIDINE INJ/PF 20 MG/2 ML SDV IV SCH ×2 (11:05→23:05)
[2018-07-27] MEDS: GUAIFENESIN 600 MG TABLET.SA PO SCH ×2 (11:06→23:04)
[2018-07-27] MEDS: IPRATROPIUM/ALBUTEROL 0.5-2.5 MG/3 ML AMPUL NEB SCH ×3 (12:17→19:27)
--- NOTE | 2018-07-27 12:50 | EKG REPORT ---
SEVERITY:- DEFECTIVE ECG - MINIMAL ST DEPRESSION, DIFFUSE LEADS SINUS TACHYCARDIA BASELINE ARTIFACT.REPEAT EKG. : Confirmed by: Ladonna Ellis MD 27-Jul-2018 12:49:13
[2018-07-27] MEDS: DEXTROSE 5%-NORMAL SALINE 1,000 ML IV PRN (13:11)
[2018-07-27] MEDS: VANCOMYCIN HCL 1,500 MG in DEXTROSE 5%-WATER 250 ML IV SCH (13:11)
[2018-07-27] MEDS ORDERED: (PENDING PHARMACY ID) (Oxycodone Hcl/Acetaminophen [Percocet 10-325 Mg Tablet] 1 EACH) PO PRN (14:05)
--- NOTE | 2018-07-27 14:05 | PDOC H&P ---
History of Present Illness Admission Date/PCP: 07/27/18 08:00 MARK HAILE MD Patient complains of: shortness of breath History of Present Illness: LEATHA ATKINS is a 63 year old female COPD, CHF, HTN, who presented to the ED c/o sob and feeling weaker than usual for the last few days. states his symptoms worsened overnight and hence she came to the ED for evaluation. states she has been coughing worse now and getting SOB with exertion and rest. states she felt so weak that last night she slipped out of the bed and onto the floor- denies LOC or trauma to the head. states she has a chronic head. denies chest pain, abdominal pain, n/v or dizziness. at homes she's on advair, spiriva and nebulizers. states she has been using her nebulizers 3-4 times a day in the last 24-48 hours but its still not helping. has history of 20+ years smoking 1.5ppd. quit over 20 years ago. of note- patient was d/c'd about a week ago- she as admitted for COPD/CHF at that time. prior to that she as admitted 3-4 weeks ago for Pneumonia and COPD. had antibiotics at that time. was discharged last week and was doing well but again had worsening symptoms. Past Medical History Cardiac Medical History: Reports: Congestive Heart Failure, Hyperlipidema, Hypertension Denies: Coronary Artery Disease - HIGH CHOLESTEROL Pulmonary Medical History: Reports: Asthma, Bronchitis, Chronic Obstructive Pulmonary Disease (COPD), Pneumonia Denies: Tuberculosis Neurological Medical History: Denies: Seizures Endocrine Medical History: Reports: Hypothyroidism Psychiatric Medical History: Reports: Depression Hematology: Denies: Anemia Infectious Medical History: Denies: HIV Past Surgical History Past Surgical History: Reports: Hysterectomy, Tubal Ligation Social History Information Source: Patient, Relative Smoking Status: Former Smoker Frequency of Alcohol Use: None Hx Recreational Drug Use: No Drugs: None Hx Prescription Drug Abuse: No - Advance Directive Resuscitation Status: Full Code Family History Family History: Reviewed & Not Pertinent Parental Family History Reviewed: Yes Children Family History Reviewed: Unknown Sibling(s) Family History Reviewed.: Unknown Medication/Allergy Home Medications: Albuterol Sulfate [Proair HFA Inhalation Aerosol 8.5 gm MDI] 1 puff IH QIDP PRN 07/17/18 Alprazolam [Xanax 0.5 mg Tablet] 0.5 mg PO TID 07/17/18 Atorvastatin Calcium [Lipitor 20 mg Tablet] 20 mg PO DAILY 07/17/18 Bumetanide [Bumex 1 mg Tablet] 2 mg PO DAILY 07/17/18 Cyclobenzaprine HCl [Flexeril 10 mg Tablet] 10 mg PO BIDP PRN 07/17/18 Dicyclomine HCl [Bentyl 10 mg Capsule] 10 mg PO TID 07/17/18 Donepezil HCl [Aricept] 10 mg PO DAILY 07/17/18 Doxepin HCl [[place] 25 mg Capsule] 50 mg PO QHS 07/17/18 Duloxetine HCl [Cymbalta 20 mg Capsule.dr] 40 mg PO DAILY 07/17/18 Ergocalciferol (Vitamin D2) [Drisdol 50,000 unit (1.25MG) Capsule] 50,000 unit PO [id number] 07/17/18 Fluoxetine HCl [Prozac] 80 mg PO DAILY 07/17/18 Fluticasone Propionate [Flonase Nasal [place] 50 Mcg/[place] 16 gm] 1 spray NASL DAILYP PRN 07/17/18 Fondaparinux Sodium [Arixtra Inj 7.5 mg/0.6 ml Disp. Syrin] 7.5 mg SUBCUT DAILY 07/17/18 Hydromorphone HCl [Exalgo] 16 mg PO DAILY 07/17/18 Hydromorphone HCl [Exalgo] 32 mg PO QHS 07/17/18 Levocetirizine Dihydrochloride [Xyzal] 5 mg PO DAILY 07/17/18 Levothyroxine Sodium 25 mcg PO DAILY 07/17/18 Levothyroxine Sodium 200 mcg PO QAM 07/17/18 Metolazone [Zaroxolyn 5 mg Tablet] 5 mg PO MOTUWETHFR@1000 07/17/18 Nystatin [Mycostatin Topical Powder 15 gm] 1 applic TP BIDP PRN 07/17/18 Oxycodone HCl/Acetaminophen [Percocet 10-325 mg Tablet] 1 each PO QID 07/17/18 Pnv No.95/Ferrous Fum/Folic AC [ Multivitamin Tablet] 1 each PO DAILY 07/17/18 Promethazine HCl [Phenergan 25 mg Tablet] 25 mg PO Q8HP PRN 07/17/18 Suvorexant [Belsomra] 20 mg PO HSP PRN 07/17/18 Tiotropium [place] [Spiriva Handihaler 5 Cap/Kit (18 Mcg/Cap)] 1 cap IH DAILY 07/17/18 Fluticasone/Salmeterol [Advair 250-50 Diskus 14 Dose/Diskus] 1 inh IH Q12 inhaler 07/20/18 Magnesium Oxide [Mag-Ox 400 mg Tablet] 400 mg PO DAILY tablet 07/20/18 Primidone [Mysoline 50 mg Tablet] 50 mg PO Q8 tablet 07/20/18 Ramipril [Altace 2.5 mg Capsule] 2.5 mg PO QHS capsule 07/20/18 Ropinirole HCl [Requip 0.25 mg Tablet] 0.25 mg PO Q12 tablet 07/20/18 Diphenoxylate HCl/Atropine [Lomotil Tablet] 1 each PO DAILYP PRN 07/27/18 Eszopiclone [Lunesta] 3 mg PO QHS 07/27/18 Omeprazole 20 mg PO DAILY 07/27/18 Potassium Chloride 20 meq PO DAILY 07/27/18 Allergies/Adverse Reactions: pregabalin [From Lyrica] Allergy (Unknown, Verified 07/17/18 07:41) trazodone HCl [From Desyrel] Allergy (Unknown, Verified 07/17/18 07:41) cephalexin monohydrate [From Keflex] Adverse Reaction (Verified 07/17/18 07:41) nausea, vomiting erythromycin base [Erythromycin Base] Adverse Reaction (Verified 07/17/18 07:41) nausea, vomiting Review of Systems Constitutional: PRESENT: fever(s) Eyes: ABSENT: visual disturbances Ears: ABSENT: hearing changes Nose, Mouth, and Throat: ABSENT: mouth pain Cardiovascular: ABSENT: edema Respiratory: PRESENT: cough, dyspnea, sputum Gastrointestinal: ABSENT: abdominal pain, nausea, vomiting Genitourinary: ABSENT: dysuria Musculoskeletal: ABSENT: joint swelling Neurological: PRESENT: weakness - chronic left sided. ABSENT: focal weakness Physical Exam Vital Signs: Temp Pulse Resp BP Pulse Ox 16 101/61 96 07/27/18 09:01 07/27/18 09:01 07/27/18 09:01 Intake & Output 07/26/18 07/27/18 07/28/18 06:59 06:59 06:59 Intake Total 1150 Balance 1150 Weight 306 lb 10.608 oz General appearance: PRESENT: obese Head exam: PRESENT: atraumatic, normocephalic Eye exam: PRESENT: EOMI, PERRLA. ABSENT: conjunctival injection, scleral icterus Ear exam: PRESENT: normal external ear exam Respiratory exam: PRESENT: accessory muscle use, decreased breath sounds, symmetrical, other - Bipap Cardiovascular exam: PRESENT: +S1, +S2 Pulses: PRESENT: +1 pedal pulses bilateral GI/Abdominal exam: PRESENT: normal bowel sounds, soft. ABSENT: tenderness Extremities exam: PRESENT: pedal edema - 1+ Neurological exam: PRESENT: alert, awake, oriented to person, CN II-XII grossly intact, other - left sided weakness of UE and LE Skin exam: PRESENT: dry, warm Results Laboratory Results: 07/27/18 05:56 07/27/18 05:56 07/27/18 07/27/18 07/27/18 05:56 05:56 05:56 WBC 12.2 H RBC 3.20 L Hgb 9.5 L Hct 28.8 L MCV 90 MCH 29.5 MCHC 32.9 RDW 15.4 H Plt Count 220 Seg Neutrophils % 85.7 H Lymphocytes % 6.7 L Monocytes % 5.8 Eosinophils % 1.7 Basophils % 0.1 Absolute Neutrophils 10.4 H Absolute Lymphocytes 0.8 Absolute Monocytes 0.7 Absolute Eosinophils 0.2 Absolute Basophils 0.0 Carbonic Acid HCO3/H2CO3 Ratio ABG pH ABG pCO2 ABG pO2 ABG HCO3 ABG O2 Saturation ABG Base Excess VBG pH VBG pCO2 VBG HCO3 VBG Base Excess FiO2 Sodium 139.4 Potassium 4.8 Chloride 105 Carbon Dioxide 29 Anion Gap 5 BUN 22 H Creatinine 1.82 H Est GFR ( Amer) 34 L Est GFR (Non-Af Amer) 28 L Glucose 132 H Lactic Acid 0.7 Calcium 8.8 Total Bilirubin 0.3 AST 23 ALT 14 Alkaline Phosphatase 104 Total Protein 6.9 Albumin 3.4 L Urine Color Urine Appearance Urine pH Ur Specific [place] Urine Protein Urine Glucose (UA) Urine Ketones Urine Blood Urine Nitrite Ur Leukocyte Esterase Urine WBC (Auto) Urine RBC (Auto) 07/27/18 07/27/18 07/27/18 05:56 07:00 07:10 WBC RBC Hgb Hct MCV MCH MCHC RDW Plt Count Seg Neutrophils % Lymphocytes % Monocytes % Eosinophils % Basophils % Absolute Neutrophils Absolute Lymphocytes Absolute Monocytes Absolute Eosinophils Absolute Basophils Carbonic Acid 1.34 HCO3/H2CO3 Ratio 18:1 ABG pH 7.36 ABG pCO2 44.6 ABG pO2 119.7 H ABG HCO3 24.7 H ABG O2 Saturation 98.2 H ABG Base Excess -0.8 VBG pH 7.33 VBG pCO2 56.2 VBG HCO3 29.2 VBG Base Excess 2.9 FiO2 60% Sodium Potassium Chloride Carbon Dioxide Anion Gap BUN Creatinine Est GFR ( Amer) Est GFR (Non-Af Amer) Glucose Lactic Acid Calcium Total Bilirubin AST ALT Alkaline Phosphatase Total Protein Albumin Urine Color YELLOW Urine Appearance CLEAR Urine pH 5.0 Ur Specific [place] 1.018 Urine Protein NEGATIVE Urine Glucose (UA) NEGATIVE Urine Ketones NEGATIVE Urine Blood NEGATIVE Urine Nitrite NEGATIVE Ur Leukocyte Esterase NEGATIVE Urine WBC (Auto) 1 Urine RBC (Auto) 1 07/27/18 05:56 Troponin I < 0.012 Impressions: Chest X-Ray 07/27/18 05:49 IMPRESSION: Worsening includes mild to moderate mixed interstitial and airspace opacities. Assessment & Plan - Diagnosis (1) Acute respiratory failure Qualifiers: Respiratory failure complication: hypoxia Qualified Code(s): J96.01 - Acute respiratory failure with hypoxia Is this a current diagnosis for this admission?: Yes (2) HCAP (healthcare-associated pneumonia) Is this a current diagnosis for this admission?: Yes (3) COPD exacerbation Is this a current diagnosis for this admission?: Yes (4) Chronic back pain Is this a current diagnosis for this admission?: Yes (5) Chronic renal failure Is this a current diagnosis for this admission?: Yes (6) History of CVA (cerebrovascular accident) Is this a current diagnosis for this admission?: Yes (7) Hyperlipidemia Is this a current diagnosis for this admission?: Yes (8) Hypertension Qualifiers: Hypertension type: essential hypertension Qualified Code(s): I10 - Essential (primary) hypertension Is this a current diagnosis for this admission?: Yes (9) Morbid obesity Is this a current diagnosis for this admission?: Yes - Time Time Spent: 50 to 70 Minutes - Inpatient Certification Based on my medical assessment, after consideration of the patient's comorbidities, presenting symptoms, or acuity I expect that the services needed warrant INPATIENT care.: Yes I certify that my determination is in accordance with my understanding of Medicare's requirements for reasonable and necessary INPATIENT services [42 CFR 412.3e].: Yes - Plan Summary Plan Summary: Acute respiratory failure with hypoxia- on bipap now- will wean her off to NC as tolerated. likely 2/2 COPD- started with aggressive pulm hygiene, neb treatments, and solumedrol. HCAP- suspected- CXR showed worsening opacities- not sure if this is all pneumonia but she did have a temp in the ER today- she received IV abx in the ed- will start her on Meropenem and Vanco. COPD exacerbation- see plan above for respiratory failure, c/w home meds
[2018-07-27] MEDS: METHYLPREDNISOLONE INJ 125 MG/2 ML SDV IV SCH ×2 (14:30→23:05)
[2018-07-27] MEDS: HEPARIN SOD (PORCINE) 5,000 UNIT/ML 1 ML SYRINGE SUBCUT SCH ×2 (14:31→23:06)
[2018-07-27] MEDS: OXYCODONE-ACETAMINOPHEN 5-325 MG TABLET PO PRN ×2 (16:21→23:05)
[2018-07-27] MEDS: OXYCODONE HCL IR 5 MG TABLET PO PRN ×2 (16:21→23:04)
[2018-07-27] MEDS: DICYCLOMINE HCL 10 MG CAPSULE PO SCH (17:07)
[2018-07-27] MEDS: TIOTROPIUM BROMIDE DPI 5 CAP/KIT (18 MCG/CAP) IH SCH (17:08)
[2018-07-27] MEDS: ALPRAZOLAM 0.5 MG TABLET PO PRN (17:08)
[2018-07-27] MEDS: FLUTICASONE/SALMETEROL DISKUS 250-50 MCG/DOSE IH SCH (22:53)
[2018-07-27] MEDS: RAMIPRIL 2.5 MG CAPSULE PO SCH (23:01)
[2018-07-27] MEDS: MEROPENEM 1 GM in NORMAL SALINE 50 ML IV SCH (23:02)
[2018-07-28] MEDS: ALPRAZOLAM 0.5 MG TABLET PO PRN ×3 (04:42→22:48)
[2018-07-28] MEDS: DEXTROSE 5%-NORMAL SALINE 1,000 ML IV PRN (04:42)
[2018-07-28] MEDS: MEROPENEM 1 GM in NORMAL SALINE 50 ML IV SCH ×3 (05:30→21:54)
[2018-07-28 05:31] LABS: ABSOLUTE LYMPHOCYTES (AUTO) 0.8 10^3/uL (0.5-4.7); ABSOLUTE MONOCYTES (AUTO) 0.3 10^3/uL (0.1-1.4); ABSOLUTE NEUT (AUTO) 8.9 10^3/uL (1.7-8.2); BASOPHILS % (AUTO) 0.2 % (0-2); HEMATOCRIT 27.6 % (36.0-47.0); HEMOGLOBIN 9.2 g/dL (12.0-15.5); LYMPHOCYTES % (AUTO) 8.3 % (13-45); MEAN CORPUSCULAR HEMOGLOBIN 30.1 pg (27.0-33.4); MEAN CORPUSCULAR HGB CONC 33.3 g/dL (32.0-36.0); MEAN CORPUSCULAR VOLUME 90 fl (80-97); MONOCYTES % (AUTO) 3.4 % (3-13); PLATELET COUNT 186 10^3/uL (150-450); RED BLOOD COUNT 3.05 10^6/uL (3.72-5.28); SEGMENTED NEUTROPHILS % (AUTO) 88.1 % (42-78); TOTAL CELLS COUNTED % (AUTO) 100 %; WHITE BLOOD COUNT 10.1 10^3/uL (4.0-10.5)
[2018-07-28 05:48] LABS: ANION GAP 11 (5-19); BLOOD UREA NITROGEN 26 mg/dL (7-20); CALCIUM 8.6 mg/dL (8.4-10.2); CARBON DIOXIDE 23 mmol/L (22-30); CHLORIDE 103 mmol/L (98-107); GLUCOSE 146 mg/dL (75-110); POTASSIUM 5.3 mmol/L (3.6-5.0); SODIUM 136.6 mmol/L (137-145)
[2018-07-28] MEDS ORDERED: NORMAL SALINE 1000 ML 500 ML IV ONE (07:24)
[2018-07-28] MEDS ORDERED: ACETAMINOPHEN 325 MG TABLET PO PRN (07:39)
[2018-07-28] MEDS ORDERED: (PENDING PHARMACY ID) (Levothyroxine Sodium [Levothyroxine Sodium] 200 MCG) PO SCH (08:00)
[2018-07-28] MEDS: LEVOTHYROXINE SODIUM 0.1 MG TABLET PO SCH (08:06)
[2018-07-28] MEDS: LANSOPRAZOLE 15 MG TAB.RAP.DR PO SCH (08:06)
[2018-07-28 08:29] LABS: ARTERIAL BLOOD BASE EXCESS -3.6 mmol/L; ARTERIAL BLOOD H2CO3 1.38 mmol/L (1.05-1.35); ARTERIAL BLOOD HCO3 22.6 mmol/L (20-24); ARTERIAL BLOOD O2 SATURATION 98.6 % (94-98); ARTERIAL BLOOD PCO2 45.8 mmHg (35-45); ARTERIAL BLOOD PH 7.31 (7.35-7.45); ARTERIAL BLOOD PO2 141.5 mmHg (80-100)
[2018-07-28 08:32] LABS: ARTERIAL BLOOD FIO2 4L
[2018-07-28] MEDS: IPRATROPIUM/ALBUTEROL 0.5-2.5 MG/3 ML AMPUL NEB SCH ×4 (08:56→19:38)
[2018-07-28] MEDS ORDERED: NYSTATIN TOPICAL POWDER 15 GM TP SCH (10:00)
[2018-07-28] MEDS ORDERED: (PENDING PHARMACY ID) (Donepezil Hcl [Aricept] 10 MG) PO SCH (10:00)
[2018-07-28] MEDS ORDERED: LANSOPRAZOLE 15 MG TAB.RAP.DR PO SCH (10:00)
[2018-07-28] MEDS ORDERED: HYDROMORPHONE HCL 16 MG PO SCH (10:00)
[2018-07-28] MEDS: METHYLPREDNISOLONE INJ 125 MG/2 ML SDV IV SCH ×2 (10:34→21:51)
[2018-07-28] MEDS: OXYCODONE-ACETAMINOPHEN 5-325 MG TABLET PO PRN (10:34)
[2018-07-28] MEDS: PROMETHAZINE HCL 25 MG TABLET PO PRN (10:34)
[2018-07-28] MEDS: OXYCODONE HCL IR 5 MG TABLET PO PRN ×3 (10:34→22:48)
[2018-07-28] MEDS: BUMETANIDE 1 MG TABLET PO SCH (10:35)
[2018-07-28] MEDS: TIOTROPIUM BROMIDE DPI 5 CAP/KIT (18 MCG/CAP) IH SCH (10:35)
[2018-07-28] MEDS: DULOXETINE HCL 20 MG CAPSULE.DR PO SCH (10:36)
[2018-07-28] MEDS: FLUTICASONE/SALMETEROL DISKUS 250-50 MCG/DOSE IH SCH ×2 (10:36→21:54)
[2018-07-28] MEDS: METOLAZONE 5 MG TABLET PO SCH (10:36)
[2018-07-28] MEDS: DICYCLOMINE HCL 10 MG CAPSULE PO SCH ×3 (10:36→17:40)
[2018-07-28] MEDS: CETIRIZINE 5 MG TABLET PO SCH (10:37)
[2018-07-28] MEDS: FLUOXETINE HCL 20 MG CAPSULE PO SCH (10:37)
[2018-07-28] MEDS: FONDAPARINUX SODIUM INJ 7.5 MG/0.6 ML DISP.SYRIN SUBCUT SCH (10:38)
[2018-07-28] MEDS: DONEPEZIL HCL 5 MG TABLET PO SCH (10:38)
[2018-07-28] MEDS: MAGNESIUM OXIDE 400 MG TABLET PO SCH (10:38)
[2018-07-28] MEDS: GUAIFENESIN 600 MG TABLET.SA PO SCH ×2 (10:38→21:52)
[2018-07-28] MEDS: ATORVASTATIN CALCIUM 20 MG TABLET PO SCH (10:38)
[2018-07-28] MEDS: POTASSIUM CHLORIDE 10 MEQ CAPSULE.ER PO SCH (10:39)
--- NOTE | 2018-07-28 11:28 | PDOC PROGRESS REPORT ---
Subjective Progress Note for:: 07/28/18 Subjective:: states she's feeling much better. she is requesting some of her pain meds be back on her regimen. did speak about opioid use and current respiratory status- she understands. she takes exalgo at home and wants that but since we do not have that she tells me she use to take oxycontin and we will try that for pain Reason For Visit: ACUTE RESPIRATORY FAILURE,COPD EXACERBATION, Physical Exam Vital Signs: Temp Pulse Resp BP Pulse Ox 97.5 F 91 14 121/54 L 95 07/28/18 08:02 07/28/18 08:56 07/28/18 08:56 07/28/18 08:02 07/28/18 08:56 Intake & Output 07/27/18 07/28/18 07/29/18 06:59 06:59 06:59 Intake Total 3890 834 Output Total 675 Balance 3215 834 Weight 274 lb 7.608 oz General appearance: PRESENT: no acute distress Head exam: PRESENT: atraumatic, normocephalic Eye exam: PRESENT: EOMI, PERRLA. ABSENT: scleral icterus Ear exam: PRESENT: normal external ear exam Mouth exam: PRESENT: tongue midline Neck exam: ABSENT: tracheal deviation Respiratory exam: PRESENT: decreased breath sounds, symmetrical, wheezes - occasional expiratory Cardiovascular exam: PRESENT: +S1, +S2 Pulses: PRESENT: +2 pedal pulses bilateral GI/Abdominal exam: PRESENT: normal bowel sounds, soft. ABSENT: tenderness Extremities exam: PRESENT: pedal edema, +2 edema - L>R edema Musculoskeletal exam: PRESENT: other - left sided weakness UE and LE Neurological exam: PRESENT: alert, awake, oriented to person, oriented to place, oriented to time Skin exam: PRESENT: dry, warm Results Laboratory Results: 07/28/18 04:36 07/28/18 04:36 07/28/18 07/28/18 07/28/18 04:36 04:36 04:36 WBC 10.1 RBC 3.05 L Hgb 9.2 L Hct 27.6 L MCV 90 MCH 30.1 MCHC 33.3 RDW 15.0 H Plt Count 186 Seg Neutrophils % 88.1 H Lymphocytes % 8.3 L Monocytes % 3.4 Eosinophils % 0.0 Basophils % 0.2 Absolute Neutrophils 8.9 H Absolute Lymphocytes 0.8 Absolute Monocytes 0.3 Absolute Eosinophils 0.0 Absolute Basophils 0.0 Carbonic Acid HCO3/H2CO3 Ratio ABG pH ABG pCO2 ABG pO2 ABG HCO3 ABG O2 Saturation ABG Base Excess FiO2 Sodium 136.6 L Potassium 5.3 H Chloride 103 Carbon Dioxide 23 Anion Gap 11 BUN 26 H Creatinine 1.64 H Est GFR ( Amer) 38 L Est GFR (Non-Af Amer) 31 L Glucose 146 H Calcium 8.6 TSH 0.87 07/28/18 08:19 WBC RBC Hgb Hct MCV MCH MCHC RDW Plt Count Seg Neutrophils % Lymphocytes % Monocytes % Eosinophils % Basophils % Absolute Neutrophils Absolute Lymphocytes Absolute Monocytes Absolute Eosinophils Absolute Basophils Carbonic Acid 1.38 H HCO3/H2CO3 Ratio 16:1 ABG pH 7.31 L ABG pCO2 45.8 H ABG pO2 141.5 H ABG HCO3 22.6 ABG O2 Saturation 98.6 H ABG Base Excess -3.6 FiO2 4L Sodium Potassium Chloride Carbon Dioxide Anion Gap BUN Creatinine Est GFR ( Amer) Est GFR (Non-Af Amer) Glucose Calcium TSH 07/27/18 05:56 Troponin I < 0.012 Impressions: Chest X-Ray 07/27/18 05:49 IMPRESSION: Worsening includes mild to moderate mixed interstitial and airspace opacities. Assessment & Plan - Diagnosis (1) Acute respiratory failure Qualifiers: Respiratory failure complication: hypoxia Qualified Code(s): J96.01 - Acute respiratory failure with hypoxia Is this a current diagnosis for this admission?: Yes (2) HCAP (healthcare-associated pneumonia) Is this a current diagnosis for this admission?: Yes (3) COPD exacerbation Is this a current diagnosis for this admission?: Yes (4) Chronic back pain Is this a current diagnosis for this admission?: Yes (5) Chronic renal failure Is this a current diagnosis for this admission?: Yes (6) History of CVA (cerebrovascular accident) Is this a current diagnosis for this admission?: Yes (7) Hyperlipidemia Is this a current diagnosis for this admission?: Yes (8) Hypertension Qualifiers: Hypertension type: essential hypertension Qualified Code(s): I10 - Essential (primary) hypertension Is this a current diagnosis for this admission?: Yes (9) Morbid obesity Is this a current diagnosis for this admission?: Yes - Plan Summary Plan Summary: Acute respiratory failure with hypoxia and hypercapnia- off her Bipap now- checked ABG this AM- - doing better on nasal cannula- continue with aggressive pulm hygiene- i think her respiratory is multifactorial- HCAP, COPD and chronic Opioid use. HCAP- suspected- CXR showed worsening opacities- on Meropenem and Vanco. another day of current regimen and then de-escalate tomorrow - COPD exacerbation- see plan above for respiratory failure, c/w advair, neb treatments, and IV solumedrol 60mg BID- will titrate down the solumedrol gradually as she improves Chronic pain- i will add oxycontin per patient request. she's on Exalgo at home and we do not have that on her formulary. she's on Oxy IR for breakthrough pain
[2018-07-28] MEDS: OXYCODONE HCL SR 10 MG TABLET PO SCH ×2 (12:57→21:52)
[2018-07-28] MEDS: VANCOMYCIN HCL 1,500 MG in DEXTROSE 5%-WATER 250 ML IV SCH (12:57)
[2018-07-28] MEDS: FAMOTIDINE INJ/PF 20 MG/2 ML SDV IV SCH (21:51)
[2018-07-28] MEDS: RAMIPRIL 2.5 MG CAPSULE PO SCH (21:52)
[2018-07-28] MEDS: NYSTATIN TOPICAL POWDER 15 GM TP SCH (21:53)
[2018-07-29] MEDS: LANSOPRAZOLE 15 MG TAB.RAP.DR PO SCH (06:47)
[2018-07-29] MEDS: MEROPENEM 1 GM in NORMAL SALINE 50 ML IV SCH ×2 (06:48→18:44)
[2018-07-29] MEDS: OXYCODONE HCL IR 5 MG TABLET PO PRN ×3 (07:00→17:39)
[2018-07-29] MEDS: LEVOTHYROXINE SODIUM 0.1 MG TABLET PO SCH (07:27)
[2018-07-29] MEDS: ALPRAZOLAM 0.5 MG TABLET PO PRN ×3 (07:28→22:20)
[2018-07-29 07:58] LABS: ANION GAP 7 (5-19); BLOOD UREA NITROGEN 24 mg/dL (7-20); CALCIUM 8.6 mg/dL (8.4-10.2); CARBON DIOXIDE 25 mmol/L (22-30); CHLORIDE 104 mmol/L (98-107); GLUCOSE 109 mg/dL (75-110); POTASSIUM 4.5 mmol/L (3.6-5.0); SODIUM 136.4 mmol/L (137-145)
[2018-07-29] MEDS: PROMETHAZINE HCL 25 MG TABLET PO PRN ×2 (08:37→17:36)
[2018-07-29] MEDS: IPRATROPIUM/ALBUTEROL 0.5-2.5 MG/3 ML AMPUL NEB SCH ×4 (08:59→20:02)
[2018-07-29] MEDS: FLUTICASONE/SALMETEROL DISKUS 250-50 MCG/DOSE IH SCH ×2 (09:26→23:28)
[2018-07-29] MEDS: TIOTROPIUM BROMIDE DPI 5 CAP/KIT (18 MCG/CAP) IH SCH (09:27)
[2018-07-29] MEDS: DONEPEZIL HCL 5 MG TABLET PO SCH (09:27)
[2018-07-29] MEDS: GUAIFENESIN 600 MG TABLET.SA PO SCH ×2 (09:27→22:12)
[2018-07-29] MEDS: FLUOXETINE HCL 20 MG CAPSULE PO SCH (09:28)
[2018-07-29] MEDS: ATORVASTATIN CALCIUM 20 MG TABLET PO SCH (09:28)
[2018-07-29] MEDS: BUMETANIDE 1 MG TABLET PO SCH (09:28)
[2018-07-29] MEDS: DICYCLOMINE HCL 10 MG CAPSULE PO SCH ×3 (09:28→17:36)
[2018-07-29] MEDS: CETIRIZINE 5 MG TABLET PO SCH (09:28)
[2018-07-29] MEDS: DULOXETINE HCL 20 MG CAPSULE.DR PO SCH (09:28)
[2018-07-29] MEDS: METHYLPREDNISOLONE INJ 125 MG/2 ML SDV IV SCH (09:29)
[2018-07-29] MEDS: OXYCODONE HCL SR 10 MG TABLET PO SCH ×2 (09:29→23:32)
[2018-07-29] MEDS: MAGNESIUM OXIDE 400 MG TABLET PO SCH (09:29)
[2018-07-29] MEDS: NYSTATIN TOPICAL POWDER 15 GM TP SCH ×2 (09:30→23:29)
[2018-07-29] MEDS: FONDAPARINUX SODIUM INJ 7.5 MG/0.6 ML DISP.SYRIN SUBCUT SCH (09:33)
[2018-07-29] MEDS: METOLAZONE 5 MG TABLET PO SCH (09:37)
[2018-07-29] MEDS: POTASSIUM CHLORIDE 10 MEQ CAPSULE.ER PO SCH (12:52)
[2018-07-29] MEDS: VANCOMYCIN HCL 1,500 MG in DEXTROSE 5%-WATER 250 ML IV SCH (12:52)
--- NOTE | 2018-07-29 14:48 | PDOC PROGRESS REPORT ---
Subjective Progress Note for:: 07/29/18 Subjective:: state she doesn't feel that good today- states she feels a little nausea- has some abdominal pain with 3 episodes of diarrhea- non bloody. otherwise she's breathing better on RA. denies chest pain, SOB or dizziness Reason For Visit: ACUTE RESPIRATORY FAILURE,COPD EXACERBATION, Physical Exam Vital Signs: Temp Pulse Resp BP Pulse Ox 98.5 F 105 H 15 120/59 L 95 07/29/18 12:51 07/29/18 13:57 07/29/18 12:51 07/29/18 12:51 07/29/18 12:51 Intake & Output 07/28/18 07/29/18 07/30/18 06:59 06:59 06:59 Intake Total 3890 1880 150 Output Total 675 1325 2025 Balance 3215 555 -1875 Weight 274 lb 7.608 oz 277 lb 12.519 oz General appearance: PRESENT: no acute distress, morbidly obese Head exam: PRESENT: atraumatic, normocephalic Eye exam: PRESENT: EOMI, PERRLA. ABSENT: scleral icterus Ear exam: PRESENT: normal external ear exam Mouth exam: PRESENT: tongue midline Neck exam: ABSENT: tracheal deviation Respiratory exam: PRESENT: decreased breath sounds - bilaterally- mostly at the bases with expiratory wheezing in all lung garcia, symmetrical Cardiovascular exam: PRESENT: +S1, +S2 Pulses: PRESENT: +2 pedal pulses bilateral GI/Abdominal exam: PRESENT: normal bowel sounds, soft, tenderness - minimal TTP in all quadrants Extremities exam: PRESENT: +1 edema - bilaterally Neurological exam: PRESENT: alert, awake, oriented to person, oriented to place, oriented to time, oriented to situation, CN II-XII grossly intact Skin exam: PRESENT: dry, warm Results Laboratory Results: 07/28/18 04:36 07/29/18 07:20 07/29/18 07:20 Sodium 136.4 L Potassium 4.5 Chloride 104 Carbon Dioxide 25 Anion Gap 7 BUN 24 H Creatinine 1.51 H Est GFR ( Amer) 42 L Est GFR (Non-Af Amer) 35 L Glucose 109 Calcium 8.6 Magnesium 1.7 07/27/18 07:00 Rodriguez Catheter Urine Culture - Final NO GROWTH 2 DAYS 07/27/18 05:56 Troponin I < 0.012 Impressions: Chest X-Ray 07/27/18 05:49 IMPRESSION: Worsening includes mild to moderate mixed interstitial and airspace opacities. Assessment & Plan - Diagnosis (1) Acute respiratory failure Qualifiers: Respiratory failure complication: hypoxia Qualified Code(s): J96.01 - Acute respiratory failure with hypoxia Is this a current diagnosis for this admission?: Yes (2) HCAP (healthcare-associated pneumonia) Is this a current diagnosis for this admission?: Yes (3) COPD exacerbation Is this a current diagnosis for this admission?: Yes (4) Chronic back pain Is this a current diagnosis for this admission?: Yes (5) Chronic renal failure Is this a current diagnosis for this admission?: Yes (6) History of CVA (cerebrovascular accident) Is this a current diagnosis for this admission?: Yes (7) Hyperlipidemia Is this a current diagnosis for this admission?: Yes (8) Hypertension Qualifiers: Hypertension type: essential hypertension Qualified Code(s): I10 - Essential (primary) hypertension Is this a current diagnosis for this admission?: Yes (9) Morbid obesity Is this a current diagnosis for this admission?: Yes - Plan Summary Plan Summary: Acute respiratory failure with hypoxia and hypercapnia-off her Bipap now and on room air at his time- doing better - continue with aggressive pulm hygiene- i think her respiratory is multifactorial- HCAP, COPD and chronic Opioid use. HCAP- suspected- CXR showed worsening opacities- on Meropenem and Vanco- she's afebrile today- will stop these and start her on Levaquin 500mg for 4 more days for 7 days total of Abx. COPD exacerbation- see plan above for respiratory failure, c/w advair, neb treatments, and IV solumedrol - will titrate down the solumedrol to 60mg IV daily- likely will need a tapered dose on discharge Chronic pain-i have added oxycontin per patient request. she's on Exalgo at home and we do not have that on her formulary. she's on Oxy IR for breakthrough pain CKd- likely at baseline- monitor c/w diarrhea, abdominal pain and nausea- will send for stool cultures and C. diff- will monitor for now- encouraged her on PO fluids intake
--- NOTE | 2018-07-29 14:50 | Progress Note ---
Provider Note Provider Note: due to her body habitus and COPD- will order overnight pulse ox to see if she meets criteria for CPAP at home
[2018-07-29] MEDS: RAMIPRIL 2.5 MG CAPSULE PO SCH (22:12)
[2018-07-29] MEDS: FAMOTIDINE INJ/PF 20 MG/2 ML SDV IV SCH (22:13)
[2018-07-30] MEDS: LANSOPRAZOLE 15 MG TAB.RAP.DR PO SCH (05:19)
[2018-07-30] MEDS: LEVOTHYROXINE SODIUM 0.1 MG TABLET PO SCH (07:26)
[2018-07-30] MEDS: OXYCODONE HCL IR 5 MG TABLET PO PRN ×3 (07:28→17:09)
[2018-07-30] MEDS: ALPRAZOLAM 0.5 MG TABLET PO PRN ×2 (07:30→17:10)
[2018-07-30] MEDS: IPRATROPIUM/ALBUTEROL 0.5-2.5 MG/3 ML AMPUL NEB SCH ×4 (08:45→19:39)
[2018-07-30] MEDS: PROMETHAZINE HCL 25 MG TABLET PO PRN ×2 (09:26→19:40)
[2018-07-30] MEDS: LEVOFLOXACIN 500 MG TABLET PO SCH (09:26)
[2018-07-30] MEDS: DULOXETINE HCL 20 MG CAPSULE.DR PO SCH (09:27)
[2018-07-30] MEDS: POTASSIUM CHLORIDE 10 MEQ CAPSULE.ER PO SCH (09:27)
[2018-07-30] MEDS: BUMETANIDE 1 MG TABLET PO SCH (09:28)
[2018-07-30] MEDS: GUAIFENESIN 600 MG TABLET.SA PO SCH ×2 (09:29→21:07)
[2018-07-30] MEDS: DONEPEZIL HCL 5 MG TABLET PO SCH (09:29)
[2018-07-30] MEDS: OXYCODONE HCL SR 10 MG TABLET PO SCH ×2 (09:30→21:08)
[2018-07-30] MEDS: DICYCLOMINE HCL 10 MG CAPSULE PO SCH ×3 (09:30→17:09)
[2018-07-30] MEDS: CETIRIZINE 5 MG TABLET PO SCH (09:30)
[2018-07-30] MEDS: FLUOXETINE HCL 20 MG CAPSULE PO SCH (09:31)
[2018-07-30] MEDS: TIOTROPIUM BROMIDE DPI 5 CAP/KIT (18 MCG/CAP) IH SCH (09:31)
[2018-07-30] MEDS: ATORVASTATIN CALCIUM 20 MG TABLET PO SCH (09:32)
[2018-07-30] MEDS: FLUTICASONE/SALMETEROL DISKUS 250-50 MCG/DOSE IH SCH ×2 (09:32→21:07)
[2018-07-30] MEDS: FONDAPARINUX SODIUM INJ 7.5 MG/0.6 ML DISP.SYRIN SUBCUT SCH (09:32)
[2018-07-30] MEDS: MAGNESIUM OXIDE 400 MG TABLET PO SCH (09:32)
[2018-07-30] MEDS: NYSTATIN TOPICAL POWDER 15 GM TP SCH ×2 (09:33→21:07)
[2018-07-30] MEDS ORDERED: METHYLPREDNISOLONE INJ 125 MG/2 ML SDV IV SCH (10:00)
[2018-07-30] MEDS: METOLAZONE 5 MG TABLET PO SCH (10:00)
[2018-07-30] MEDS ORDERED: ALBUTEROL SULFATE 0.083% NEB 2.5 MG/3 ML AMPUL NEB PRN (10:59)
[2018-07-30] MEDS ORDERED: LACTOBACILLUS ACIDOPHILUS 250 MG TAB PO ONE (11:08)
[2018-07-30] MEDS: PRIMIDONE 50 MG TABLET PO SCH ×2 (13:54→21:13)
[2018-07-30] MEDS: LACTOBACILLUS ACIDOPHILUS 250 MG TAB PO SCH (17:10)
[2018-07-30] MEDS: PREDNISONE 20 MG TABLET PO SCH (17:10)
[2018-07-30] MEDS: RAMIPRIL 2.5 MG CAPSULE PO SCH (21:07)
[2018-07-30] MEDS: ROPINIROLE HCL 0.25 MG TABLET PO SCH (21:08)
[2018-07-30] MEDS: FAMOTIDINE INJ/PF 20 MG/2 ML SDV IV SCH (21:08)
[2018-07-31] MEDS: OXYCODONE HCL IR 5 MG TABLET PO PRN ×5 (00:40→19:29)
--- NOTE | 2018-07-31 05:37 | PROGRESS NOTE E ---
Progress Note NAME: LEATHA ATKINS : 1955 AGE: 63Y DATE: 07/30/2018 ROOM: 306 SUBJECTIVE: The patient is lying in bed. She states she feels very nauseous today. The patient states that her nausea has been unable to be relieved at this point in time. She attributes it possibly to antibiotic use. However, she is uncertain. Otherwise, the patient denies any shortness of breath, dizziness, chest pain. No fevers, chills. The patient also has had a couple of episodes of diarrhea as well, which the patient describes as unusual for her. The patient has been afebrile. Blood pressure has been in good range. The patient did not voice any other concerns at this time. REVIEW OF SYSTEMS: The rest of review of systems is negative. MEDICATIONS: Medications have been reviewed. OBJECTIVE: GENERAL: The patient is a 63-year-old female that is awake, alert. She is oriented to person, place, time, situation. She is verbal, conversational. Does not appear to be in any acute distress. VITAL SIGNS: Temperature is 98.2, pulse 98, respirations 18, blood pressure 127/70, oxygen saturation 96% on room air. SKIN: Warm and dry. No rash, not diaphoretic. HEENT: Pupils equal, round, reactive to light and accommodation. No JVP. CVS: Heart is regular, without murmur or rub. CHEST: Clear, symmetrical, nonlabored. ABDOMEN: Soft, obese, nontender. EXTREMITIES: No clubbing, cyanosis. The patient does have chronic lymphedema lower extremities. PSYCHIATRIC: Appropriate affect. Pleasant mood. DIAGNOSTICS: Lab values are as follows: Hematology obtained on 07/28/2018: WBC is 13.1, hemoglobin is 9.2, hematocrit is 27.6, platelet count is 186,000. Chemistry panel 07/29/2018: Sodium is 136, potassium 4.5, chloride is 104, carbon dioxide 25, BUN 24, creatinine is 0.51, glucose 109, calcium is 8.6, magnesium is 1.7. ASSESSMENT AND PLAN: 1. PNEUMONIA, HIGH SUSPICION FOR GRAM-NEGATIVE GIVEN THE PATIENT'S HISTORY AND RISK FOR HCAP. Will continue antibiotic coverage. The patient has been transitioned over to Levaquin and hopefully she can tolerate this. 2. CHRONIC OBSTRUCTIVE PULMONARY DISEASE EXACERBATION. Will transition to oral steroids today. 3. [id number] HYPOXEMIC AND HYPERCAPNIC RESPIRATORY FAILURE. The patient has been weaned from O2. 4. OPIATE DEPENDENCY, CONTINUOUS. The patient continues on her home medications. 5. CEREBROVASCULAR DISEASE. Will continue the patient's home medicines. 6. HYPERLIPIDEMIA. Continue statin. 7. HYPERTENSION. Continue the patient's home medications. 8. MORBID OBESITY, WITH A BMI OF 46. The patient been counseled regarding weight reduction. 9. CHRONIC KIDNEY DISEASE STAGE 3. The patient's creatinine appears to be at baseline. The patient's baseline creatinine is in the 1.5 range. 10. DIARRHEA, POSSIBLY ANTIBIOTIC INDUCED. The patient's C. difficile was negative. Will start her on a probiotic and follow. DISPOSITION: The patient is a full code. Pending patient's symptomatology and diagnostic findings, will reevaluate [facility] Time spent on this followup, including assessment and plan, physical examination, patient education, review of records, and family meeting is 25 minutes. DICTATING PHYSICIAN: ROSEY BHANDARI NP [id number] JOSEY#: [id number] ID: [id number] JOB#: [id number] ACCT: [id number] cc: > MTDD
[2018-07-31] MEDS: PRIMIDONE 50 MG TABLET PO SCH ×3 (06:30→21:15)
[2018-07-31] MEDS: LANSOPRAZOLE 15 MG TAB.RAP.DR PO SCH (06:31)
[2018-07-31] MEDS: ALPRAZOLAM 0.5 MG TABLET PO PRN ×2 (06:34→15:08)
[2018-07-31] MEDS: LEVOTHYROXINE SODIUM 0.1 MG TABLET PO SCH (07:32)
[2018-07-31] MEDS: PROMETHAZINE HCL 25 MG TABLET PO PRN ×2 (07:32→19:31)
[2018-07-31] MEDS: IPRATROPIUM/ALBUTEROL 0.5-2.5 MG/3 ML AMPUL NEB SCH (07:56)
[2018-07-31] MEDS: FLUTICASONE/SALMETEROL DISKUS 250-50 MCG/DOSE IH SCH ×2 (09:16→21:15)
[2018-07-31] MEDS: DONEPEZIL HCL 5 MG TABLET PO SCH (09:18)
[2018-07-31] MEDS: POTASSIUM CHLORIDE 10 MEQ CAPSULE.ER PO SCH (09:19)
[2018-07-31] MEDS: OXYCODONE HCL SR 10 MG TABLET PO SCH ×2 (09:19→21:16)
[2018-07-31] MEDS: LACTOBACILLUS ACIDOPHILUS 250 MG TAB PO SCH ×2 (09:19→18:07)
[2018-07-31] MEDS: LEVOFLOXACIN 500 MG TABLET PO SCH (09:20)
[2018-07-31] MEDS: DICYCLOMINE HCL 10 MG CAPSULE PO SCH (09:20)
[2018-07-31] MEDS: ATORVASTATIN CALCIUM 20 MG TABLET PO SCH (09:20)
[2018-07-31] MEDS: GUAIFENESIN 600 MG TABLET.SA PO SCH ×2 (09:20→21:15)
[2018-07-31] MEDS: CETIRIZINE 5 MG TABLET PO SCH (09:20)
[2018-07-31] MEDS: DULOXETINE HCL 20 MG CAPSULE.DR PO SCH (09:20)
[2018-07-31] MEDS: PREDNISONE 20 MG TABLET PO SCH (09:20)
[2018-07-31] MEDS: BUMETANIDE 1 MG TABLET PO SCH (09:20)
[2018-07-31] MEDS: FLUOXETINE HCL 20 MG CAPSULE PO SCH (09:21)
[2018-07-31] MEDS: ROPINIROLE HCL 0.25 MG TABLET PO SCH ×2 (09:21→21:15)
[2018-07-31] MEDS: FONDAPARINUX SODIUM INJ 7.5 MG/0.6 ML DISP.SYRIN SUBCUT SCH (09:21)
[2018-07-31] MEDS: MAGNESIUM OXIDE 400 MG TABLET PO SCH (09:21)
[2018-07-31] MEDS: NYSTATIN TOPICAL POWDER 15 GM TP SCH ×2 (09:22→21:16)
[2018-07-31] MEDS: TIOTROPIUM BROMIDE DPI 5 CAP/KIT (18 MCG/CAP) IH SCH (10:33)
--- NOTE | 2018-07-31 11:34 | PROGRESS NOTE E ---
Progress Note NAME: LEATHA ATKINS : 1955 AGE: 63Y DATE: 07/31/2018 ROOM: 306 SUBJECTIVE: The patient is currently lying in bed. She states she feels miserable. She describes herself as persistently nauseous and has had 3 bowel movements this morning that she describes as liquid. The patient's C. diff was negative. The patient has been afebrile. Her blood pressures have been in a good range. She has been oxygenating on room air. From a respiratory standpoint, the patient is actually doing quite well. The patient does not voice any other concerns at this time. REVIEW OF SYSTEMS: The rest of review of systems is negative. MEDICATIONS: Medications have been reviewed. OBJECTIVE: GENERAL: The patient is a 63-year-old female that is awake, alert. She is oriented to person, place, time, and situation. She is verbal, conversational. Does not appear to be in any acute distress. VITAL SIGNS: Temperature is 98.4, pulse 99, respirations 18, blood pressure 136/58, oxygen saturation 96% on room air. SKIN: Warm and dry. No rash, not diaphoretic. HEENT: Pupils equal, round, reactive to light and accommodation. Conjunctivae pink. No evidence of JVP. CVS: Heart is regular, without murmur or rub. CHEST: Clear, symmetrical, unlabored. ABDOMEN: Soft, nontender, nondistended. BACK: No CVA tenderness or sacral edema. EXTREMITIES: No clubbing, cyanosis, edema. PSYCHIATRIC: Appropriate affect. Pleasant mood. DIAGNOSTICS: Lab values are as follows: Hematology obtained on 07/28/2018: WBC is 10.1, hemoglobin is 9.2, hematocrit is 27.6, platelet count is 186,000. Chemistry panel 07/29/2018: Sodium is 136, potassium 4.5, chloride is 104, carbon dioxide 25, BUN 24, creatinine is 0.51, glucose 109, calcium is 8.6, magnesium is 1.7. IMPRESSION AND PLAN: 1. NAUSEA, ABDOMINAL PAIN, DIARRHEA. We will obtain stool studies. We will go ahead and get a contrasted CT of the abdomen and pelvis. The patient may have developed ileus. I also have concerns for fecal impaction due to the patient's opiate use as well. We will follow. 2. GRAM-NEGATIVE PNEUMONIA. The patient only has a couple of days left on her Levaquin. Hopefully she can tolerate it. 3. CHRONIC OBSTRUCTIVE PULMONARY DISEASE EXACERBATION. The patient has been transition to oral steroids. 4. [id number]-WP-[id number] HYPOXEMIC AND HYPERCAPNIC RESPIRATORY FAILURE. The patient has been weaned completely from O2. 5. OPIATE DEPENDENCY, CONTINUOUS. The patient is on her home medications. 6. CEREBROVASCULAR DISEASE. Will continue the patient's home medicines. 7. HYPERLIPIDEMIA. Continue statin. 8. HYPERTENSION. Will continue the patient's home medications. 9. MORBID OBESITY, WITH A BMI OF 46. The patient was counseled regarding weight reduction. 10. CHRONIC KIDNEY DISEASE STAGE-III. The patient's creatinine appears to be at baseline. DISPOSITION: The patient is a FULL CODE. Pending patient's symptomatology and diagnostic findings, patient can be discharged as soon as these last symptoms resolve. The patient does have a bed at [place] [facility]. Time spent on this followup, including assessment and plan, physical examination, patient education, review of records is 35 minutes. DICTATING PHYSICIAN: ROSEY BHANDARI NP [id number] PHY#: [id number] ID: [id number] JOB#: [id number] ACCT: [id number] cc: > MTDD
--- NOTE | 2018-07-31 17:17 | RADIOLOGY REPORT (SQ) ---
EXAM DESCRIPTION: CT ABD/PELVIS WITH IV ORAL COMPLETED DATE/TIME: 07/31/2018 4:47 pm REASON FOR STUDY: Abd pain, Nausea, vomiting, diarrhea COMPARISON: 05/31/2013 TECHNIQUE: CT scan of the abdomen and pelvis performed using helical scanning technique with dynamic intravenous contrast injection. No oral contrast. Images reviewed with lung, soft tissue, and bone windows. Reconstructed coronal and sagittal MPR images reviewed. Delayed images for evaluation of the urinary system also acquired. All images stored on PACS. All CT scanners at this facility use dose modulation, iterative reconstruction, and/or weight based d osing when appropriate to reduce radiation dose to as low as reasonably achievable (ALARA). [facility]: Dose Right [facility]: CareDose [facility]: Dose Right [facility]: Teradose 4D [facility]: Iotera CONTRAST TYPE AND DOSE: contrast/concentration: Isovue 350.00 mg/ml; Total Contrast Delivered: 100.0 ml; Total Saline Delivered: 72.0 ml RENAL FUNCTION: BUN 24 creatinine 1.51 RADIATION DOSE: CT Rad equipment meets quality standard of care and radiation dose reduction techniq ues were employed. CTDIvol: 20.9 - 21.1 mGy. DLP: 2214 mGy-cm.. LIMITATIONS: None. FINDINGS: LOWER CHEST: Pleural/parenchymal scarring in the left lower lobe. LIVER: Normal size. No masses. No dilated ducts. SPLEEN: Normal size. No focal lesions. PANCREAS: No masses. No significant calcifications. No adjacent inflammation or peripancreatic fluid collections. Pancreatic duct not dilated. GALLBLADDER: Contracted. No stones. ADRENAL GLANDS: No significant masses or asymmetry. RIGHT KIDNEY AND URETER: No solid masses. No significant calcifications. No hydronephrosis or hyd roureter. LEFT KIDNEY AND URETER: No solid masses. No significant calcifications. No hydronephrosis or hydr oureter. AORTA AND VESSELS: No aneurysm. No dissection. Renal arteries, SMA, celiac without stenosis. RETROPERITONEUM: No retroperitoneal adenopathy, hemorrhage or masses. BOWEL AND PERITONEAL CAVITY: No masses or inflammatory changes. No free fluid or peritoneal masses. APPENDIX: Normal. PELVIS: No mass. No free fluid. Normal bladder. ABDOMINAL WALL: No masses. No hernias. BONES: No significant or acute findings. OTHER: No other significant finding. IMPRESSION: NO SIGNIFICANT OR ACUTE FINDING IN THE ABDOMEN OR PELVIS ON CT SCAN WITH IV CONTRAST. TECHNICAL DOCUMENTATION: JOB ID: [id number] Quality ID # [id number]: Final reports with documentation of one or more dose reduction techniques (e.g., Au tomated exposure control, adjustment of the mA and/or kV according to patient size, use of iterative reconstruction technique) 2010 [employer]- All Rights Reserved Reading location - IP/workstation name: [email or web address]
[2018-07-31] MEDS: PREDNISONE 10 MG TABLET PO SCH (18:07)
[2018-07-31] MEDS: RAMIPRIL 2.5 MG CAPSULE PO SCH (21:16)
[2018-08-01] MEDS: ALPRAZOLAM 0.5 MG TABLET PO PRN ×3 (01:18→20:22)
[2018-08-01] MEDS: OXYCODONE HCL IR 5 MG TABLET PO PRN ×5 (01:32→21:16)
[2018-08-01] MEDS: PROMETHAZINE HCL 25 MG TABLET PO PRN ×3 (03:38→20:23)
[2018-08-01 05:27] LABS: HEMATOCRIT 28.9 % (36.0-47.0); HEMOGLOBIN 9.7 g/dL (12.0-15.5); MEAN CORPUSCULAR HEMOGLOBIN 29.5 pg (27.0-33.4); MEAN CORPUSCULAR HGB CONC 33.5 g/dL (32.0-36.0); MEAN CORPUSCULAR VOLUME 88 fl (80-97); PLATELET COUNT 263 10^3/uL (150-450); RED BLOOD COUNT 3.28 10^6/uL (3.72-5.28); RED CELL DISTRIBUTION WIDTH 15.1 % (11.5-14.0)
[2018-08-01 06:04] LABS: ANION GAP 8 (5-19); BLOOD UREA NITROGEN 21 mg/dL (7-20); CARBON DIOXIDE 28 mmol/L (22-30); CHLORIDE 103 mmol/L (98-107); GLUCOSE 92 mg/dL (75-110); SODIUM 138.6 mmol/L (137-145)
[2018-08-01] MEDS: PRIMIDONE 50 MG TABLET PO SCH ×3 (06:59→21:16)
[2018-08-01] MEDS: LEVOTHYROXINE SODIUM 0.1 MG TABLET PO SCH (08:03)
[2018-08-01] MEDS: OXYCODONE HCL SR 10 MG TABLET PO SCH (11:07)
[2018-08-01] MEDS: DONEPEZIL HCL 5 MG TABLET PO SCH (11:07)
[2018-08-01] MEDS: ATORVASTATIN CALCIUM 20 MG TABLET PO SCH (11:07)
[2018-08-01] MEDS: PREDNISONE 10 MG TABLET PO SCH ×2 (11:07→18:13)
[2018-08-01] MEDS: POTASSIUM CHLORIDE 10 MEQ CAPSULE.ER PO SCH (11:08)
[2018-08-01] MEDS: GUAIFENESIN 600 MG TABLET.SA PO SCH ×2 (11:08→21:16)
[2018-08-01] MEDS: CETIRIZINE 5 MG TABLET PO SCH (11:08)
[2018-08-01] MEDS: DULOXETINE HCL 20 MG CAPSULE.DR PO SCH (11:08)
[2018-08-01] MEDS: MAGNESIUM OXIDE 400 MG TABLET PO SCH ×3 (11:09→18:13)
[2018-08-01] MEDS: LACTOBACILLUS ACIDOPHILUS 250 MG TAB PO SCH ×2 (11:09→18:12)
[2018-08-01] MEDS: DIPHENOXYLATE HCL/ATROP SULF 2.5-0.025 MG TABLET PO PRN ×2 (11:09→15:37)
[2018-08-01] MEDS: FLUOXETINE HCL 20 MG CAPSULE PO SCH (11:09)
[2018-08-01] MEDS: TIOTROPIUM BROMIDE DPI 5 CAP/KIT (18 MCG/CAP) IH SCH (11:10)
[2018-08-01] MEDS: FLUTICASONE/SALMETEROL DISKUS 250-50 MCG/DOSE IH SCH ×2 (11:10→21:19)
[2018-08-01] MEDS: FONDAPARINUX SODIUM INJ 7.5 MG/0.6 ML DISP.SYRIN SUBCUT SCH (11:10)
[2018-08-01] MEDS: LEVOFLOXACIN 500 MG TABLET PO SCH (11:10)
[2018-08-01] MEDS: ROPINIROLE HCL 0.25 MG TABLET PO SCH ×2 (11:11→21:17)
[2018-08-01] MEDS: NYSTATIN TOPICAL POWDER 15 GM TP SCH ×2 (11:13→21:19)
[2018-08-01] MEDS: ALBUTEROL SULFATE 0.083% NEB 2.5 MG/3 ML AMPUL NEB PRN ×2 (12:22→21:23)
[2018-08-01] MEDS: LOPERAMIDE HCL 2 MG CAPSULE PO PRN (15:37)
--- NOTE | 2018-08-01 15:57 | PROGRESS NOTE E ---
Progress Note NAME: LEATHA ATKINS : 1955 AGE: 63Y DATE: 08/01/2018 ROOM: 306 SUBJECTIVE: The patient is currently lying in bed. The patient states that she has been having ongoing diarrhea. She has had 2 episodes today. The patient has been afebrile. Her blood pressure has been in good range. The patient appears comfortable. She has not had any breathing treatments in a day, citing that they have been discontinued; however they do remain on the MAR. The patient is not receptive to conversation regarding the amount of opiates she consumes and what it could be doing to her belly and no other concerns were voiced at this time. REVIEW OF SYSTEMS: The rest of the review of systems is negative. MEDICATIONS: Medications have been reviewed. OBJECTIVE: GENERAL: The patient is a 63-year-old female who is awake, alert. She is oriented to person, place, time, and situation. She is verbal, conversational, does not appear to be in distress. VITAL SIGNS: Temperature is 98.3, pulse 97, respirations 16, blood pressure is 119/55, oxygen saturation is 93% on room air. SKIN: Warm and dry. No rash. She is not diaphoretic. HEENT: Pupils are reactive. Conjunctiva is pink. There is no evidence of JVP. CARDIOVASCULAR: Heart is regular, no rub. CHEST: Absolutely clear posteriorly and anteriorly, symmetrical, unlabored. ABDOMEN: Soft, nontender. EXTREMITIES: No clubbing, cyanosis or specific pitting edema. PSYCHIATRIC: Appropriate affect. Pleasant mood. DIAGNOSTICS: Lab values are as follows: Hematology obtained on 08/01/2018: WBC's are 9.0, hemoglobin is 9.7, hematocrit is 28.9, platelet count is 363,000. Chemistry obtained on 08/01/2018: Sodium is 138, potassium 4.0, chloride is 130, bicarbonate is 28, BUN 21, creatinine is 1.38, glucose 92, calcium is 9.0, magnesium is 1.3. IMPRESSION AND PLAN: 1. GRAM-NEGATIVE PNEUMONIA. The patient has just a couple of days left on her Levaquin and hopefully she can tolerate that. The patient is asymptomatic for this at this point. 2. NAUSEA, DIARRHEA, ABDOMINAL PAIN. Some of this, I do believe, is contributory to antibiotic, as well as her chronic opiate use. The patient's symptoms have waxed and waned. Given we have ruled out infectious etiology, we will go ahead and resume her Lomotil from home. The patient does not want to go to rehab until her diarrhea is improved. 3. CHRONIC OBSTRUCTIVE PULMONARY DISEASE EXCERBATION. The patient has been transitioned to oral steroids. 4. ACUTE ON CHRONIC HYPOXEMIC AND HYPERCAPNEIC RESPIRATORY FAILURE. The patient has weaned completely from O2. 5. OPIATE DEPENDENCY. Continuous. She is on her home medicines. 6. CEREBROVASCULAR DISEASE. Continue home medications. 7. HYPERLIPIDEMIA. Continue statin. 8. HYPERTENSION. Continue the patient's home medications. 9. MORBID OBESITY WITH BMI 46. The patient has been counseled regarding weight reduction. 10. CHRONIC KIDNEY DISEASE PHASE III. The patient's creatinine appears to be at baseline. DISPOSITION: The patient is a FULL CODE. The patient will go to [place] as soon as she is agreeable. Time spent on this followup, including assessment, plan, physical examination, patient education and review of records is 35 minutes. DICTATING PHYSICIAN: ROSEY BHANDARI NP [id number] PHY#: [id number] ID: [id number] JOB#: [id number] ACCT: [id number] cc: >
[2018-08-01] MEDS: RAMIPRIL 2.5 MG CAPSULE PO SCH (21:16)
[2018-08-02] MEDS: OXYCODONE HCL IR 5 MG TABLET PO PRN ×5 (01:16→19:50)
[2018-08-02] MEDS: DIPHENOXYLATE HCL/ATROP SULF 2.5-0.025 MG TABLET PO PRN (05:29)
[2018-08-02] MEDS: PROMETHAZINE HCL 25 MG TABLET PO PRN ×3 (05:29→22:16)
[2018-08-02] MEDS: PRIMIDONE 50 MG TABLET PO SCH ×3 (05:29→21:08)
[2018-08-02] MEDS: ALPRAZOLAM 0.5 MG TABLET PO PRN ×3 (05:29→19:50)
[2018-08-02] MEDS: LEVOTHYROXINE SODIUM 0.1 MG TABLET PO SCH (08:37)
[2018-08-02] MEDS: ALBUTEROL SULFATE 0.083% NEB 2.5 MG/3 ML AMPUL NEB PRN ×2 (08:53→20:12)
[2018-08-02] MEDS: FONDAPARINUX SODIUM INJ 7.5 MG/0.6 ML DISP.SYRIN SUBCUT SCH (09:52)
[2018-08-02] MEDS: GUAIFENESIN 600 MG TABLET.SA PO SCH ×2 (09:53→21:09)
[2018-08-02] MEDS: DONEPEZIL HCL 5 MG TABLET PO SCH (09:53)
[2018-08-02] MEDS: ATORVASTATIN CALCIUM 20 MG TABLET PO SCH (09:53)
[2018-08-02] MEDS: DULOXETINE HCL 20 MG CAPSULE.DR PO SCH (09:54)
[2018-08-02] MEDS: PREDNISONE 10 MG TABLET PO SCH ×2 (09:54→18:21)
[2018-08-02] MEDS: LEVOFLOXACIN 500 MG TABLET PO SCH (09:54)
[2018-08-02] MEDS: FLUOXETINE HCL 20 MG CAPSULE PO SCH (09:54)
[2018-08-02] MEDS: CETIRIZINE 5 MG TABLET PO SCH (09:54)
[2018-08-02] MEDS: LACTOBACILLUS ACIDOPHILUS 250 MG TAB PO SCH ×2 (09:55→18:22)
[2018-08-02] MEDS: POTASSIUM CHLORIDE 10 MEQ CAPSULE.ER PO SCH (09:55)
[2018-08-02] MEDS: NYSTATIN TOPICAL POWDER 15 GM TP SCH ×2 (09:55→21:09)
[2018-08-02] MEDS: FLUTICASONE/SALMETEROL DISKUS 250-50 MCG/DOSE IH SCH ×2 (09:57→21:08)
[2018-08-02] MEDS: ROPINIROLE HCL 0.25 MG TABLET PO SCH ×2 (09:57→21:08)
[2018-08-02] MEDS: TIOTROPIUM BROMIDE DPI 5 CAP/KIT (18 MCG/CAP) IH SCH (09:57)
[2018-08-02] MEDS: LOPERAMIDE HCL 2 MG CAPSULE PO PRN ×2 (10:12→18:21)
[2018-08-02] MEDS: MAGNESIUM OXIDE 400 MG TABLET PO SCH ×3 (13:51→18:25)
[2018-08-02] MEDS: RAMIPRIL 2.5 MG CAPSULE PO SCH (21:08)
--- NOTE | 2018-08-02 23:27 | PROGRESS NOTE E ---
Progress Note NAME: LEATHA ATKINS : 1955 AGE: 63Y DATE: 08/02/2018 ROOM: 306 SUBJECTIVE: The patient is currently lying in bed. The patient states that her diarrhea continues. The patient's diarrhea does not appear to be excessive. Her electrolytes have remained relatively stable. The patient has only recorded 3 bowel movements yesterday. The patient states that magnesium makes it works, however, her magnesium is slightly low and needs to be replaced. Possible antibiotic induced, but the patient takes Lomotil chronically at home. I have explained to the patient that if she feels that the magnesium and the Levaquin are causing her diarrhea then treating it with Lomotil is going to be an issues because she could become impacted because these medicines will stop today. The patient complains of her chronic pains, has had no episodes of vomiting, no concerns voiced at this time. REVIEW OF SYSTEMS: The rest of review of systems is negative. MEDICATIONS: Have been reviewed. OBJECTIVE: GENERAL: The patient is a 63-year-old female who is awake, alert, and oriented to person, time, place, situation. She is verbal, conversational. Does not appear to be in any acute distress. VITAL SIGNS: Temperature is 98.5, pulse 96, respirations 16, blood pressure is 124/64, oxygen saturation is 95% on room air. SKIN: Warm and dry. No rash. She is not diaphoretic. HEENT: Pupils equal, round and reactive to light and accommodation. Conjunctivae are pink. No evidence of JVP. CARDIOVASCULAR: Heart is regular. There is no murmur or rub. CHEST: Clear, symmetrical, unlabored. ABDOMEN: Soft, nontender, nondistended. BACK: No CVA tenderness, sacral edema. EXTREMITIES: No clubbing, cyanosis, edema. PSYCHIATRIC: Appropriate affect, pleasant mood. DIAGNOSTICS: Lab values are as follows - Hematology obtained on 08/01/2018; WBC is 9.0, hemoglobin is 9.7, hematocrit is 28.9, platelet count is 363,000. Chemistry obtained on 08/01/2018; sodium is 138, potassium 4.0, chloride is 103, carbon dioxide 28, BUN 21, creatinine is 1.38, glucose 92, calcium is 9.0, magnesium is 1.3. IMPRESSION AND PLAN: 1. GRAM-NEGATIVE PNEUMONIA. The patient has just a couple of days left of her oral Levaquin, it should stop tomorrow. Hopefully she can continue to tolerate it. 2. NAUSEA, VOMITING, ABDOMINAL PAIN. Actually these appear to be chronic issues. The patient takes Lomotil chronically at home, which probably conflicts with her opiate bowel issues. The patient's CT has been unremarkable. We will follow. 3. CHRONIC OBSTRUCTIVE PULMONARY DISEASE. The patient has been transitioned to oral meds. 4. ACUTE ON CHRONIC HYPOXEMIC AND HYPERCAPNIC RESPIRATORY FAILURE. The patient has been weaned completely from O2. 5. OPIATE DEPENDENCY CONTINUOUS. The patient continues on her home medications. 6. CEREBROVASCULAR DISEASE. Continue home medicines. 7. HYPERLIPIDEMIA. Continue statin. 8. HYPERTENSION. Continue the patient's home medication. 9. CHRONIC KIDNEY DISEASE STAGE 3. The patient appears to be at baseline. 10. MORBID OBESITY WITH A BMI OF 46. The patient has been counseled regarding weight reduction. CODE STATUS: The patient is a full code. DISPOSITION: The patient can go to [place] as soon as she is agreeable. TIME SPENT: On this follow up, including assessment and plan, physical examination, patient education, review of records, and family meeting is 25 minutes. DICTATING PHYSICIAN: ROSEY BHANDARI NP [id number] PHY#: [id number] ID: [id number] JOB#: [id number] ACCT: [id number] cc: >
[2018-08-03] MEDS: OXYCODONE HCL IR 5 MG TABLET PO PRN ×6 (02:06→22:47)
[2018-08-03] MEDS: ALPRAZOLAM 0.5 MG TABLET PO PRN ×3 (04:40→18:45)
[2018-08-03] MEDS: PRIMIDONE 50 MG TABLET PO SCH ×3 (05:06→21:29)
[2018-08-03 05:38] LABS: ABSOLUTE EOSINOPHILS # (AUTO) 0.1 10^3/uL (0.0-0.6); ABSOLUTE LYMPHOCYTES (AUTO) 1.5 10^3/uL (0.5-4.7); ABSOLUTE MONOCYTES (AUTO) 0.9 10^3/uL (0.1-1.4); BASOPHILS % (AUTO) 0.6 % (0-2); EOSINOPHILS % (AUTO) 1.7 % (0-6); HEMATOCRIT 30.7 % (36.0-47.0); HEMOGLOBIN 10.2 g/dL (12.0-15.5); LYMPHOCYTES % (AUTO) 17.2 % (13-45); MEAN CORPUSCULAR HEMOGLOBIN 29.5 pg (27.0-33.4); MEAN CORPUSCULAR HGB CONC 33.2 g/dL (32.0-36.0); MEAN CORPUSCULAR VOLUME 89 fl (80-97); MONOCYTES % (AUTO) 10.5 % (3-13); PLATELET COUNT 279 10^3/uL (150-450); RED BLOOD COUNT 3.45 10^6/uL (3.72-5.28); RED CELL DISTRIBUTION WIDTH 15.4 % (11.5-14.0); TOTAL CELLS COUNTED % (AUTO) 100 %; WHITE BLOOD COUNT 8.5 10^3/uL (4.0-10.5)
[2018-08-03 06:00] LABS: ALANINE AMINOTRANSFERASE 26 U/L (9-52); ALBUMIN 3.2 g/dL (3.5-5.0); ALKALINE PHOSPHATASE 76 U/L (38-126); ANION GAP 5 (5-19); ASPARTATE AMINO TRANSFERASE 19 U/L (14-36); BILIRUBIN,DIRECT 0.3 mg/dL (0.0-0.4); BILIRUBIN,TOTAL 0.4 mg/dL (0.2-1.3); BLOOD UREA NITROGEN 18 mg/dL (7-20); CALCIUM 8.4 mg/dL (8.4-10.2); CARBON DIOXIDE 30 mmol/L (22-30); CHLORIDE 105 mmol/L (98-107); GLUCOSE 92 mg/dL (75-110); POTASSIUM 4.5 mmol/L (3.6-5.0); SODIUM 139.8 mmol/L (137-145)
[2018-08-03] MEDS: ALBUTEROL SULFATE 0.083% NEB 2.5 MG/3 ML AMPUL NEB PRN ×2 (08:48→19:40)
[2018-08-03] MEDS: LEVOTHYROXINE SODIUM 0.1 MG TABLET PO SCH (08:56)
[2018-08-03] MEDS: PROMETHAZINE HCL 25 MG TABLET PO PRN (08:56)
[2018-08-03] MEDS: DULOXETINE HCL 20 MG CAPSULE.DR PO SCH (10:40)
[2018-08-03] MEDS: FLUOXETINE HCL 20 MG CAPSULE PO SCH (10:41)
[2018-08-03] MEDS: ATORVASTATIN CALCIUM 20 MG TABLET PO SCH (10:41)
[2018-08-03] MEDS: LACTOBACILLUS ACIDOPHILUS 250 MG TAB PO SCH ×2 (10:41→18:01)
[2018-08-03] MEDS: DONEPEZIL HCL 5 MG TABLET PO SCH (10:41)
[2018-08-03] MEDS: CETIRIZINE 5 MG TABLET PO SCH (10:41)
[2018-08-03] MEDS: FLUTICASONE/SALMETEROL DISKUS 250-50 MCG/DOSE IH SCH ×2 (10:42→21:28)
[2018-08-03] MEDS: FONDAPARINUX SODIUM INJ 7.5 MG/0.6 ML DISP.SYRIN SUBCUT SCH (10:42)
[2018-08-03] MEDS: TIOTROPIUM BROMIDE DPI 5 CAP/KIT (18 MCG/CAP) IH SCH (10:42)
[2018-08-03] MEDS: ROPINIROLE HCL 0.25 MG TABLET PO SCH ×2 (10:42→21:29)
[2018-08-03] MEDS: NYSTATIN TOPICAL POWDER 15 GM TP SCH ×2 (10:44→21:29)
[2018-08-03] MEDS: DIPHENOXYLATE HCL/ATROP SULF 2.5-0.025 MG TABLET PO PRN (10:52)
[2018-08-03] MEDS: POTASSIUM CHLORIDE 10 MEQ CAPSULE.ER PO SCH (11:00)
[2018-08-03] MEDS: GUAIFENESIN 600 MG TABLET.SA PO SCH ×2 (12:59→21:29)
[2018-08-03] MEDS: PREDNISONE 10 MG TABLET PO SCH (12:59)
[2018-08-03] MEDS: MAGNESIUM OXIDE 400 MG TABLET PO SCH (12:59)
--- NOTE | 2018-08-03 13:55 | PDOC TRANSFER SUMMARY ---
General - Admit/Disc Date/PCP Admission Date/Primary Care Provider: 07/27/18 08:00 Saranya Hawthorne NP Discharge Date: 08/04/18 - Discharge Diagnosis (1) HCAP (healthcare-associated pneumonia) Is this a current diagnosis for this admission?: Yes Summary: Gram-negative pneumonia. Has completed course of oral Levaquin. (2) Chronic obstructive pulmonary disease with acute exacerbation Is this a current diagnosis for this admission?: Yes Summary: Has been weaned from both steroids and oxygen. (3) Acute on chronic respiratory failure with hypoxia and hypercapnia Is this a current diagnosis for this admission?: Yes Summary: Secondary to numbers 1 and 2 resolved. (4) Acute kidney injury Is this a current diagnosis for this admission?: Yes Summary: Resolved. Creatinine is at baseline. 07/27/18 08/03/18 05:56 04:28 Creatinine 1.82 H 1.20 (5) Chronic kidney disease, stage 3 Is this a current diagnosis for this admission?: Yes Summary: Creatinine is back to its baseline at 1.2. (6) Opiate dependence, continuous Is this a current diagnosis for this admission?: Yes Summary: The patient has been counseled regarding this. (7) Benzodiazepine dependence, continuous Is this a current diagnosis for this admission?: Yes (8) Polypharmacy Is this a current diagnosis for this admission?: Yes Summary: The patient has been found at times difficult to arouse. At one point during her last admission she was found with her teeth on her chest where they had fallen out of her mouth. Made an attempt to reduce the patient's occasions. Change medications to as needed as well as he will hold off on Flexeril. Patient was on different sleep sedatives at night including Belsomra, Requip, doxepin and Lunesta (9) Nausea Is this a current diagnosis for this admission?: Yes Summary: Most likely secondary to the patient's polypharmacy. (10) Cerebral vascular disease Is this a current diagnosis for this admission?: Yes (11) Hypertension Is this a current diagnosis for this admission?: Yes (12) Hypomagnesemia Is this a current diagnosis for this admission?: Yes Summary: Continues to be supplemented. (13) Diastolic dysfunction Is this a current diagnosis for this admission?: Yes Summary: The patient is optivolemic at this point. (14) Hyperlipidemia Is this a current diagnosis for this admission?: Yes (15) Hypothyroidism Is this a current diagnosis for this admission?: Yes (16) Anemia in chronic kidney disease Is this a current diagnosis for this admission?: Yes Summary: At baseline. 07/27/18 08/03/18 05:56 04:28 Hgb 9.5 L 10.2 L (17) Chronic back pain Is this a current diagnosis for this admission?: Yes (18) Morbid obesity with BMI of 45.0-49.9, adult Is this a current diagnosis for this admission?: Yes - Additional Information Resuscitation Status: Full Code Discharge Diet: As Tolerated, Cardiac Discharge Activity: Activity As Tolerated Prescriptions: Alprazolam [Xanax 0.5 mg Tablet] 0.5 mg PO BIDP PRN #10 tablet PRN Reason: Oxycodone HCl/Acetaminophen [Percocet 10-325 mg Tablet] 1 each PO QIDP PRN #20 tablet PRN Reason: Home Medications: Albuterol Sulfate [Proair HFA Inhalation Aerosol 8.5 gm MDI] 1 puff IH QIDP PRN 07/17/18 Atorvastatin Calcium [Lipitor 20 mg Tablet] 20 mg PO DAILY 07/17/18 Bumetanide [Bumex 1 mg Tablet] 2 mg PO DAILY 07/17/18 Donepezil HCl [Aricept] 10 mg PO DAILY 07/17/18 Doxepin HCl [Sinequan 25 mg Capsule] 50 mg PO QHS 07/17/18 Duloxetine HCl [Cymbalta 20 mg Capsule.dr] 40 mg PO DAILY 07/17/18 Ergocalciferol (Vitamin D2) [Drisdol 50,000 unit (1.25MG) Capsule] 50,000 unit PO [id number] 07/17/18 Fluoxetine HCl [Prozac] 80 mg PO DAILY 07/17/18 Fluticasone Propionate [Flonase Nasal [place] 50 Mcg/[place] 16 gm] 1 spray NASL DAILYP PRN 07/17/18 Fondaparinux Sodium [Arixtra Inj 7.5 mg/0.6 ml Disp. Syrin] 7.5 mg SUBCUT DAILY 07/17/18 Levocetirizine Dihydrochloride [Xyzal] 5 mg PO DAILY 07/17/18 Levothyroxine Sodium 200 mcg PO QAM 07/17/18 Metolazone [Zaroxolyn 5 mg Tablet] 5 mg PO MOTUWETHFR@1000 07/17/18 Nystatin [Mycostatin Topical Powder 15 gm] 1 applic TP BIDP PRN 07/17/18 Pnv No.95/Ferrous Fum/Folic AC [ Multivitamin Tablet] 1 each PO DAILY 07/17/18 Promethazine HCl [Phenergan 25 mg Tablet] 25 mg PO Q8HP PRN 07/17/18 Suvorexant [Belsomra] 20 mg PO HSP PRN 07/17/18 Tiotropium [place] [Spiriva [place] 5 Cap/Kit (18 Mcg/Cap)] 1 cap IH DAILY 07/17/18 Fluticasone/Salmeterol [Advair 250-50 Diskus 14 Dose/Diskus] 1 inh IH Q12 inhaler 07/20/18 Magnesium Oxide [Mag-Ox 400 mg Tablet] 400 mg PO DAILY tablet 07/20/18 Primidone [Mysoline 50 mg Tablet] 50 mg PO Q8 tablet 07/20/18 Ramipril [Altace 2.5 mg Capsule] 2.5 mg PO QHS capsule 07/20/18 Ropinirole HCl [Requip 0.25 mg Tablet] 0.25 mg PO Q12 tablet 07/20/18 Diphenoxylate HCl/Atropine [Lomotil 2.5-0.025 mg Tablet] 1 each PO DAILYP PRN 07/27/18 Omeprazole 20 mg PO DAILY 07/27/18 Potassium Chloride 20 meq PO DAILY 07/27/18 Acetaminophen [Tylenol 325 mg Tablet] 650 mg PO Q6HP PRN tablet 08/03/18 Albuterol Sulfate [Ventolin 0.083% Neb 2.5 mg/3 mL Ampul] 2.5 mg NEB RTQ4HP PRN vial.neb 08/03/18 Alprazolam [Xanax 0.5 mg Tablet] 0.5 mg PO BIDP PRN #10 tablet 08/03/18 Oxycodone HCl/Acetaminophen [Percocet 10-325 mg Tablet] 1 each PO QIDP PRN #20 tablet 08/03/18 History of Present Illness Admission Date/PCP: 07/27/18 08:00 Saranya Hawthorne NP Patient complains of: Shortness of breath. History of Present Illness: LEATHA ATKINS is a 63 year old female COPD, CHF, HTN, who presented to the ED c/o sob and feeling weaker than usual for a few days prior to presentation from the emergency department. states his symptoms worsened overnight and hence she came to the ED for evaluation. states she has been coughing worse now and getting SOB with exertion and rest. states she felt so weak that last night she slipped out of the bed and onto the floor- denies LOC or trauma to the head. states she has a chronic head. denies chest pain, abdominal pain, n/v or dizziness. at homes she's on advair, spiriva and nebulizers. states she has been using her nebulizers 3-4 times a day in the last 24-48 hours but its still not helping. has history of 20+ years smoking 1.5ppd. quit over 20 years ago. of note- patient was d/c'd about a week ago- she as admitted for COPD/CHF at that time. prior to that she as admitted 3-4 weeks ago for Pneumonia and COPD. had antibiotics at that time. was discharged last week and was doing well but again had worsening symptoms. Hospital Course Hospital Course: The patient was admitted to [facility]. The patient was placed on scheduled nebs, IV antibiotic coverage (levaquin), expectorants, supplemental O2, incentive spirometry and flutter valve. Sputum culture was obtained with no bacterial growth. The patient was quickly transitioned back to baseline oxygen. Steroids have been weaned. The patient did complain of diarrhea which is a chronic thing for her but felt that it was worsened by antibiotic use. The patient maxed to 3 stools a day. The patient was started on probiotic therapy all stool studies were found to be unremarkable. CT of the abdomen and pelvis with IV and oral contrast was also unremarkable. The patient is stable for discharge. Physical Exam Vital Signs: Temp Pulse Resp BP Pulse Ox 98.0 F 93 16 113/46 L 95 08/03/18 11:59 08/03/18 11:59 08/03/18 11:59 08/03/18 11:59 08/03/18 11:59 Intake & Output 08/01/18 08/02/18 08/03/18 23:59 23:59 23:59 Intake Total 888 237 Output Total 2150 1201 750 Balance -1262 -964 -750 Weight 116.4 kg 116 kg 116.4 kg General appearance: PRESENT: no acute distress, cooperative, morbidly obese, well-developed Head exam: PRESENT: atraumatic, normocephalic Eye exam: PRESENT: conjunctiva pink, EOMI, PERRLA. ABSENT: periorbital swelling, scleral icterus Ear exam: PRESENT: normal external ear exam Mouth exam: PRESENT: moist, tongue midline Neck exam: ABSENT: JVD Respiratory exam: PRESENT: clear to auscultation allison, symmetrical, unlabored Cardiovascular exam: PRESENT: RRR Pulses: PRESENT: normal dorsalis pedis pul Vascular exam: PRESENT: normal capillary refill GI/Abdominal exam: PRESENT: normal bowel sounds, soft Rectal exam: PRESENT: deferred Extremities exam: PRESENT: pedal edema Neurological exam: PRESENT: alert, awake, oriented to person, oriented to place, oriented to time, oriented to situation, CN II-XII grossly intact Psychiatric exam: PRESENT: appropriate affect, normal mood Skin exam: PRESENT: dry, intact, warm Results Laboratory Results: Labs- Last Values WBC 8.5 10^3/uL (4.0-10.5) 08/03/18 04:28 RBC 3.45 10^6/uL (3.72-5.28) L 08/03/18 04:28 Hgb 10.2 g/dL (12.0-15.5) L 08/03/18 04:28 Hct 30.7 % (36.0-47.0) L 08/03/18 04:28 MCV 89 fl (80-97) 08/03/18 04:28 MCH 29.5 pg (27.0-33.4) 08/03/18 04:28 MCHC 33.2 g/dL (32.0-36.0) 08/03/18 04:28 RDW 15.4 % (11.5-14.0) H 08/03/18 04:28 Plt Count 279 10^3/uL (150-450) 08/03/18 04:28 Seg Neutrophils % 70.0 % (42-78) 08/03/18 04:28 Lymphocytes % 17.2 % (13-45) 08/03/18 04:28 Monocytes % 10.5 % (3-13) 08/03/18 04:28 Eosinophils % 1.7 % (0-6) 08/03/18 04:28 Basophils % 0.6 % (0-2) 08/03/18 04:28 Absolute Neutrophils 6.0 10^3/uL (1.7-8.2) 08/03/18 04:28 Absolute Lymphocytes 1.5 10^3/uL (0.5-4.7) 08/03/18 04:28 Absolute Monocytes 0.9 10^3/uL (0.1-1.4) 08/03/18 04:28 Absolute Eosinophils 0.1 10^3/uL (0.0-0.6) 08/03/18 04:28 Absolute Basophils 0.0 10^3/uL (0.0-0.2) 08/03/18 04:28 Carbonic Acid 1.38 mmol/L (1.05-1.35) H 07/28/18 08:19 HCO3/H2CO3 Ratio 16:1 07/28/18 08:19 ABG pH 7.31 (7.35-7.45) L 07/28/18 08:19 ABG pCO2 45.8 mmHg (35-45) H 07/28/18 08:19 ABG pO2 141.5 mmHg (80-100) H 07/28/18 08:19 ABG HCO3 22.6 mmol/L (20-24) 07/28/18 08:19 ABG Total CO2 24.0 mmol/L (21-25) 07/28/18 08:19 ABG O2 Saturation 98.6 % (94-98) H 07/28/18 08:19 ABG Base Excess -3.6 mmol/L 07/28/18 08:19 VBG pH 7.33 (7.30-7.42) 07/27/18 05:56 VBG pCO2 56.2 mmHg (35-63) 07/27/18 05:56 VBG HCO3 29.2 mmol/L (20-32) 07/27/18 05:56 VBG Base Excess 2.9 mmol/L 07/27/18 05:56 FiO2 4L 07/28/18 08:19 Sodium 139.8 mmol/L (137-145) 08/03/18 04:28 Potassium 4.5 mmol/L (3.6-5.0) 08/03/18 04:28 Chloride 105 mmol/L (98-107) 08/03/18 04:28 Carbon Dioxide 30 mmol/L (22-30) 08/03/18 04:28 Anion Gap 5 (5-19) 08/03/18 04:28 BUN 18 mg/dL (7-20) 08/03/18 04:28 Creatinine 1.20 mg/dL (0.52-1.25) 08/03/18 04:28 Est GFR ( Amer) 55 (>60) L 08/03/18 04:28 Est GFR (Non-Af Amer) 45 (>60) L 08/03/18 04:28 Glucose 92 mg/dL (75-110) 08/03/18 04:28 Lactic Acid 0.7 mmol/L (0.7-2.1) 07/27/18 05:56 Calcium 8.4 mg/dL (8.4-10.2) 08/03/18 04:28 Magnesium 1.5 mg/dL (1.6-2.3) L 08/03/18 04:28 Total Bilirubin 0.4 mg/dL (0.2-1.3) 08/03/18 04:28 Direct Bilirubin 0.3 mg/dL (0.0-0.4) 08/03/18 04:28 Neonat Total Bilirubin Not Reportable 08/03/18 04:28 Neonat Direct Bilirubin Not Reportable 08/03/18 04:28 Neonat Indirect Bili Not Reportable 08/03/18 04:28 AST 19 U/L (14-36) 08/03/18 04:28 ALT 26 U/L (9-52) 08/03/18 04:28 Alkaline Phosphatase 76 U/L (38-126) 08/03/18 04:28 Troponin I < 0.012 ng/mL 07/27/18 05:56 Total Protein 6.0 g/dL (6.3-8.2) L 08/03/18 04:28 Albumin 3.2 g/dL (3.5-5.0) L 08/03/18 04:28 TSH 0.87 uIU/mL (0.47-4.68) 07/28/18 04:36 Urine Color YELLOW 07/27/18 07:00 Urine Appearance CLEAR 07/27/18 07:00 Urine pH 5.0 (5.0-9.0) 07/27/18 07:00 Ur Specific [place] 1.018 07/27/18 07:00 Urine Protein NEGATIVE mg/dL (NEGATIVE) 07/27/18 07:00 Urine Glucose (UA) NEGATIVE mg/dL (NEGATIVE) 07/27/18 07:00 Urine Ketones NEGATIVE mg/dL (NEGATIVE) 07/27/18 07:00 Urine Blood NEGATIVE (NEGATIVE) 07/27/18 07:00 Urine Nitrite NEGATIVE (NEGATIVE) 07/27/18 07:00 Urine Bilirubin NEGATIVE (NEGATIVE) 07/27/18 07:00 Urine Urobilinogen NEGATIVE mg/dL (<2.0) 07/27/18 07:00 Ur Leukocyte Esterase NEGATIVE (NEGATIVE) 07/27/18 07:00 Urine WBC (Auto) 1 /HPF 07/27/18 07:00 Urine RBC (Auto) 1 /HPF 07/27/18 07:00 U Hyaline Cast (Auto) 1 /LPF 07/27/18 07:00 Urine Mucus (Auto) RARE /LPF 07/27/18 07:00 Urine Ascorbic Acid NEGATIVE (NEGATIVE) 07/27/18 07:00 Stool for White Cells NO WBCs SEEN 08/02/18 08:22 C. difficile Tox (PCR) NEGATIVE (NEGATIVE) 07/29/18 15:25 07/27/18 10:56 Blood Culture - Final Blood NO GROWTH IN 5 DAYS 07/27/18 07:00 Urine Culture - Final Rodriguez Catheter NO GROWTH 2 DAYS 07/27/18 05:56 Blood Culture - Final Blood NO GROWTH IN 5 DAYS Impressions: Chest X-Ray 07/27/18 05:49 IMPRESSION: Mild to moderate mixed interstitial and airspace opacities. Abdomen/Pelvis CT 07/31/18 09:44 IMPRESSION: NO SIGNIFICANT OR ACUTE FINDING IN THE ABDOMEN OR PELVIS ON CT SCAN WITH IV CONTRAST. Status: Imported from PACS Transfer Plan - Disposition Transfer Plan: The patient will follow with her primary care provider within 1-2 weeks for hospital follow-up. Patient will be transferred to [facility] for rehabilitation. - Time Spent with Patient Time spent with patient: Greater than 30 Minutes Qualifiers - * PATIENT BEING DISCHARGED WITH ANY OF THE FOLLOWING DIAGNOSIS: No
--- NOTE | 2018-08-03 16:57 | PROGRESS NOTE E ---
Progress Note NAME: LEATHA ATKINS : 1955 AGE: 63Y DATE: 08/03/2018 ROOM: [facility] SUBJECTIVE: The patient is lying in bed. The patient is complaining of ongoing diarrhea. The patient states that it is excessive; however, when I look back on charted bowel movements, the patient only averages 3 a day. The patient is attributing the diarrhea to the antibiotic and magnesium supplements. Despite the patient's reported excessive diarrhea, the patient's chemistries continue to improve and her creatinine has normalized. The patient's blood pressure has been in good range. The patient does not voice any other concerns at this time. BRIEF HISTORY: The patient is a 63-year-old female that is well known to the hospitalist service. The patient presented to the emergency department with a chief complaint of shortness of breath. The patient was admitted with COPD exacerbation, as well as an acute kidney injury. The patient's Zaroxolyn was held. She was given a little bit of fluids and the patient's creatinine has normalized. The patient was covered with Levaquin. Her last dose would be today. The patient is going to rehab. She does have a bed available at [facility] and can go in the a.m. The patient has refused to have her Rodriguez removed. The patient has refused to further go to rehab because she does not want to go to rehab with diarrhea. The patient's stool studies have been unremarkable. The patient only has recorded 3 bowel movements a day. The patient has been receiving Imodium and Lomotil. No other concerns voiced at this time. REVIEW OF SYSTEMS: The rest of review of systems is negative. MEDICATIONS: Medications have been reviewed. OBJECTIVE: GENERAL: The patient is a 63-year-old female who is awake, alert, and oriented to person, time, place, situation. She is verbal, conversational. Does not appear to be in any acute distress. VITAL SIGNS: Temperature is 98.6, pulse 86, respirations 18, blood pressure is 127/68, oxygen saturation is 98% on room air. SKIN: Warm and dry. No rash. She is not diaphoretic. HEENT: Pupils equal, round and reactive to light and accommodation. Conjunctivae are pink. No evidence of JVP. CARDIOVASCULAR: Heart is regular. There is no murmur or rub. CHEST: Clear, symmetrical, unlabored. ABDOMEN: Obese, soft, nontender. EXTREMITIES: No clubbing, cyanosis. The patient does have chronic bilateral lower extremity lymphedema. PSYCHIATRIC: Appropriate affect, pleasant mood. DIAGNOSTICS: Lab values are as follows - Hematology obtained on 08/03/2018; WBC is 8.5, hemoglobin is 10.2, hematocrit is 30.7, platelet count is 379,000. Chemistry obtained on 08/03/2018; sodium is 139, potassium 4.5, chloride is 105, carbon dioxide 30, BUN 18, creatinine is 1.2, glucose 92, calcium is 8.4, magnesium is 1.5, bilirubin 0.4, AST 19, ALT is 26, alkaline phosphatase 76, total protein 6, albumin is 3.2. IMPRESSION AND PLAN: 1. GRAM-NEGATIVE PNEUMONIA. The patient's last day of Levaquin is today. 2. NAUSEA, ABDOMINAL PAIN, DIARRHEA. Upon review, it appears these are chronic issues for her. The patient even has Lomotil at home that she takes. The patient is not losing a copious amount of electrolytes. Stool studies have been unremarkable. Maybe it will improve with stopping her antibiotic. CT scan has been unremarkable. 3. CHRONIC OBSTRUCTIVE PULMONARY DISEASE. The patient has been transitioned to oral medications. Will again reduce steroids today. 4. ACUTE ON CHRONIC HYPOXEMIC AND HYPERCAPNIC RESPIRATORY FAILURE. The patient has been weaned completely from O2. 5. OPIATE DEPENDENCY. Continuous. The patient continues on her home medications. 6. CEREBROVASCULAR DISEASE. Continue home medicine. 7. HYPERLIPIDEMIA. Continue statin. 8. HYPERTENSION. Continue the patient's home medication. 9. CHRONIC KIDNEY DISEASE STAGE 3. The patient appears to be at baseline. 10. MORBID OBESITY WITH A BMI 46. The patient has been counseled regarding weight reduction. DISPOSITION: THE PATIENT IS A FULL CODE. The patient can go to [facility] as soon as she is agreeable, most likely she can go in the a.m. TIME SPENT: On this follow up, including assessment and plan, physical examination, patient education, review of records is 35 minutes. DICTATING PHYSICIAN: ROSEY BHANDARI NP [id number] PHY#: [id number] ID: [id number] JOB#: [id number] ACCT: [id number] cc: > MTDD
[2018-08-03] MEDS: RAMIPRIL 2.5 MG CAPSULE PO SCH (21:29)
[2018-08-04] MEDS: OXYCODONE HCL IR 5 MG TABLET PO PRN ×5 (03:08→19:52)
[2018-08-04] MEDS: ALPRAZOLAM 0.5 MG TABLET PO PRN ×3 (03:08→19:53)
[2018-08-04 05:37] LABS: ANION GAP 7 (5-19); BLOOD UREA NITROGEN 19 mg/dL (7-20); CALCIUM 8.3 mg/dL (8.4-10.2); CARBON DIOXIDE 26 mmol/L (22-30); CHLORIDE 107 mmol/L (98-107); GLUCOSE 92 mg/dL (75-110); POTASSIUM 4.1 mmol/L (3.6-5.0); SODIUM 140.4 mmol/L (137-145)
[2018-08-04] MEDS: PRIMIDONE 50 MG TABLET PO SCH ×3 (06:08→21:19)
[2018-08-04] MEDS: ALBUTEROL SULFATE 0.083% NEB 2.5 MG/3 ML AMPUL NEB PRN (07:40)
[2018-08-04] MEDS: LEVOTHYROXINE SODIUM 0.1 MG TABLET PO SCH (08:54)
[2018-08-04] MEDS: PROMETHAZINE HCL 25 MG TABLET PO PRN ×2 (08:54→17:20)
[2018-08-04] MEDS: ROPINIROLE HCL 0.25 MG TABLET PO SCH ×2 (10:22→21:19)
[2018-08-04] MEDS: CETIRIZINE 5 MG TABLET PO SCH (10:22)
[2018-08-04] MEDS: FLUOXETINE HCL 20 MG CAPSULE PO SCH (10:22)
[2018-08-04] MEDS: DONEPEZIL HCL 5 MG TABLET PO SCH (10:23)
[2018-08-04] MEDS: ATORVASTATIN CALCIUM 20 MG TABLET PO SCH (10:23)
[2018-08-04] MEDS: DULOXETINE HCL 20 MG CAPSULE.DR PO SCH (10:23)
[2018-08-04] MEDS: PREDNISONE 10 MG TABLET PO SCH (10:23)
[2018-08-04] MEDS: LACTOBACILLUS ACIDOPHILUS 250 MG TAB PO SCH ×2 (10:23→17:19)
[2018-08-04] MEDS: GUAIFENESIN 600 MG TABLET.SA PO SCH ×2 (10:23→21:19)
[2018-08-04] MEDS: MAGNESIUM OXIDE 400 MG TABLET PO SCH (10:23)
[2018-08-04] MEDS: TIOTROPIUM BROMIDE DPI 5 CAP/KIT (18 MCG/CAP) IH SCH (10:24)
[2018-08-04] MEDS: FONDAPARINUX SODIUM INJ 7.5 MG/0.6 ML DISP.SYRIN SUBCUT SCH (10:24)
[2018-08-04] MEDS: FLUTICASONE/SALMETEROL DISKUS 250-50 MCG/DOSE IH SCH ×2 (10:24→21:18)
[2018-08-04] MEDS: NYSTATIN TOPICAL POWDER 15 GM TP SCH ×2 (10:24→21:18)
--- NOTE | 2018-08-04 14:42 | PDOC PROGRESS REPORT ---
Subjective Progress Note for:: 08/04/18 Subjective:: For a full discharge summary please see the note transcribed on August 03. Patient was resting comfortably at the time of my evaluation. She is scheduled for short-term rehab on discharge. Further discussion was had about the combination of benzodiazepine and opioid use. Patient wishes to continue on current medication regimen. We also had a discussion about restarting her Zaroxolyn and Bumex. She is agreeable to starting half her home dose of Bumex and restarting Zaroxolyn as previously scheduled. She is understandable and agreeable to following up with outpatient physician. Reason For Visit: ACUTE RESPIRATORY FAILURE,COPD EXACERBATION, Physical Exam Vital Signs: Temp Pulse Resp BP Pulse Ox 98.8 F 84 16 107/42 L 97 08/04/18 07:30 08/04/18 07:41 08/04/18 07:41 08/04/18 07:30 08/04/18 07:41 Pulse Oximeter Nocturnal Start: 07/29/18 14:49 Freq: RTQ4 Status: Complete Protocol: Document 07/30/18 06:41 CMI (Rec: 07/30/18 06:41 CMI [id number]) Nocturnal Pulse Oximetry Equipment Usage Equipment Discontinued Continuous SpO2 Machine # 9 Intake & Output 08/03/18 08/04/18 08/05/18 06:59 06:59 06:59 Intake Total 237 844 Output Total 1301 1150 Balance -1064 -306 Weight 116.4 kg 116.6 kg General appearance: PRESENT: no acute distress, well-developed, well-nourished Head exam: PRESENT: atraumatic, normocephalic Eye exam: PRESENT: conjunctiva pink, EOMI, PERRLA. ABSENT: scleral icterus Cardiovascular exam: PRESENT: +S1, +S2 GI/Abdominal exam: PRESENT: normal bowel sounds, soft. ABSENT: distended, guarding, mass, organolmegaly, rebound, tenderness Rectal exam: PRESENT: deferred Neurological exam: PRESENT: alert, awake, oriented to person, oriented to place, oriented to time, oriented to situation, CN II-XII grossly intact. ABSENT: motor sensory deficit Psychiatric exam: PRESENT: appropriate affect, normal mood. ABSENT: homicidal ideation, suicidal ideation Results Laboratory Results: 08/03/18 04:28 08/04/18 03:53 08/04/18 03:53 Sodium 140.4 Potassium 4.1 Chloride 107 Carbon Dioxide 26 Anion Gap 7 BUN 19 Creatinine 1.21 Est GFR ( Amer) 54 L Est GFR (Non-Af Amer) 45 L Glucose 92 Calcium 8.3 L Magnesium 1.5 L 07/27/18 05:56 Troponin I < 0.012 Impressions: Chest X-Ray 07/27/18 05:49 IMPRESSION: Worsening includes mild to moderate mixed interstitial and airspace opacities. Abdomen/Pelvis CT 07/31/18 09:44 IMPRESSION: NO SIGNIFICANT OR ACUTE FINDING IN THE ABDOMEN OR PELVIS ON CT SCAN WITH IV CONTRAST. Assessment & Plan - Diagnosis (1) Acute kidney injury Is this a current diagnosis for this admission?: Yes (2) Benzodiazepine dependence, continuous Is this a current diagnosis for this admission?: Yes (3) Morbid obesity with BMI of 45.0-49.9, adult Is this a current diagnosis for this admission?: Yes (4) Opiate dependence, continuous Is this a current diagnosis for this admission?: Yes - Time Time Spent with patient: 25-34 minutes Medications reviewed and adjusted accordingly: Yes Anticipated discharge: SNF Within: within 24 hours - Inpatient Certification Based on my medical assessment, after consideration of the patient's comorbidities, presenting symptoms, or acuity I expect that the services needed warrant INPATIENT care.: Yes I certify that my determination is in accordance with my understanding of Medicare's requirements for reasonable and necessary INPATIENT services [42 CFR 412.3e].: Yes - Plan Summary Plan Summary: -Continue previous plan as listed below. (1) HCAP (healthcare-associated pneumonia) Is this a current diagnosis for this admission?: Yes Summary: Gram-negative pneumonia. Has completed course of oral Levaquin. (2) Chronic obstructive pulmonary disease with acute exacerbation Is this a current diagnosis for this admission?: Yes Summary: Has been weaned from both steroids and oxygen. (3) Acute on chronic respiratory failure with hypoxia and hypercapnia Is this a current diagnosis for this admission?: Yes Summary: Secondary to numbers 1 and 2 resolved. (4) Acute kidney injury Is this a current diagnosis for this admission?: Yes Summary: Resolved. Creatinine is at baseline. 07/27/18 08/03/18 05:56 04:28 Creatinine 1.82 H 1.20 (5) Chronic kidney disease, stage 3 Is this a current diagnosis for this admission?: Yes Summary: Creatinine is back to its baseline at 1.2. (6) Opiate dependence, continuous Is this a current diagnosis for this admission?: Yes Summary: The patient has been counseled regarding this. (7) Benzodiazepine dependence, continuous Is this a current diagnosis for this admission?: Yes (8) Polypharmacy Is this a current diagnosis for this admission?: Yes Summary: The patient has been found at times difficult to arouse. At one point during her last admission she was found with her teeth on her chest where they had fallen out of her mouth. Made an attempt to reduce the patient's occasions. Change medications to as needed as well as he will hold off on Flexeril. Patient was on different sleep sedatives at night including Belsomra, Requip, doxepin and Lunesta (9) Nausea Is this a current diagnosis for this admission?: Yes Summary: Most likely secondary to the patient's polypharmacy. (10) Cerebral vascular disease Is this a current diagnosis for this admission?: Yes (11) Hypertension Is this a current diagnosis for this admission?: Yes (12) Hypomagnesemia Is this a current diagnosis for this admission?: Yes Summary: Continues to be supplemented. (13) Diastolic dysfunction Is this a current diagnosis for this admission?: Yes Summary: The patient is optivolemic at this point. Patient was restarted on half of her home dose of Bumex on day of discharge. Thus she will go home on 1 mg daily. She was also restarted on Zaroxolyn Saturday and Saturday as previously ordered. She was advised to follow-up within 1-2 weeks of discharge. (14) Hyperlipidemia Is this a current diagnosis for this admission?: Yes (15) Hypothyroidism Is this a current diagnosis for this admission?: Yes (16) Anemia in chronic kidney disease Is this a current diagnosis for this admission?: Yes Summary: At baseline. 07/27/18 08/03/18 05:56 04:28 Hgb 9.5 L 10.2 L (17) Chronic back pain Is this a current diagnosis for this admission?: Yes (18) Morbid obesity with BMI of 45.0-49.9, adult Is this a current diagnosis for this admission?: Yes
[2018-08-04] MEDS: RAMIPRIL 2.5 MG CAPSULE PO SCH (21:19)
[2018-08-05] MEDS: OXYCODONE HCL IR 5 MG TABLET PO PRN ×2 (04:17→08:39)
[2018-08-05] MEDS: ALPRAZOLAM 0.5 MG TABLET PO PRN ×2 (04:17→09:52)
[2018-08-05] MEDS: PRIMIDONE 50 MG TABLET PO SCH (05:35)
[2018-08-05] MEDS: PROMETHAZINE HCL 25 MG TABLET PO PRN (05:35)
[2018-08-05] MEDS: ALBUTEROL SULFATE 0.083% NEB 2.5 MG/3 ML AMPUL NEB PRN (08:03)
[2018-08-05] MEDS: LEVOTHYROXINE SODIUM 0.1 MG TABLET PO SCH (08:38)
[2018-08-05] MEDS: FLUOXETINE HCL 20 MG CAPSULE PO SCH (09:50)
[2018-08-05] MEDS: CETIRIZINE 5 MG TABLET PO SCH (09:50)
[2018-08-05] MEDS: DONEPEZIL HCL 5 MG TABLET PO SCH (09:51)
[2018-08-05] MEDS: FLUTICASONE/SALMETEROL DISKUS 250-50 MCG/DOSE IH SCH (09:51)
[2018-08-05] MEDS: DULOXETINE HCL 20 MG CAPSULE.DR PO SCH (09:52)
[2018-08-05] MEDS: ROPINIROLE HCL 0.25 MG TABLET PO SCH (09:52)
[2018-08-05] MEDS: ATORVASTATIN CALCIUM 20 MG TABLET PO SCH (09:53)
[2018-08-05] MEDS: MAGNESIUM OXIDE 400 MG TABLET PO SCH (09:53)
[2018-08-05] MEDS: LACTOBACILLUS ACIDOPHILUS 250 MG TAB PO SCH (09:53)
[2018-08-05] MEDS: PREDNISONE 10 MG TABLET PO SCH (09:53)
[2018-08-05] MEDS: GUAIFENESIN 600 MG TABLET.SA PO SCH (09:53)
[2018-08-05] MEDS: FONDAPARINUX SODIUM INJ 7.5 MG/0.6 ML DISP.SYRIN SUBCUT SCH (09:54)
[2018-08-05] MEDS: NYSTATIN TOPICAL POWDER 15 GM TP SCH (09:54)
[2018-08-05] MEDS: TIOTROPIUM BROMIDE DPI 5 CAP/KIT (18 MCG/CAP) IH SCH (09:56)
[2018-08-05] MEDS ORDERED: BUMETANIDE 1 MG TABLET PO SCH (10:00)
[2018-08-05] MEDS ORDERED: METOLAZONE 5 MG TABLET PO ONE (10:45)
--- NOTE | 2018-08-05 11:47 | PDOC PROGRESS REPORT ---
Addendum entered and electronically signed by KENDALL HERNANDEZ PA-C 08/05/18 16:51: Provider Note Provider Note: Patient required re-printed prescriptions of Xanax 0.5 mg twice daily as needed 20 tablets, and oxycodone 10 4 times daily as needed 20 tablets. The receiving facility reported not receiving the prescriptions. She was also provided prescriptions for the lower Bumex order and daily Zaroxolyn order Original Note: Subjective Subjective:: Patient was unable to be discharged yesterday evening due to intake facility being at capacity. She rested well overnight. She had no issues. She is eager for discharge. No issues reported by nursing. We did go ahead and give her a one-time dose of 5 mg Zaroxolyn and 1 mg of Bumex prior to discharge. Reason For Visit: ACUTE RESPIRATORY FAILURE,COPD EXACERBATION, Physical Exam Vital Signs: Temp Pulse Resp BP Pulse Ox 97.4 F 84 14 106/77 100 08/05/18 07:53 08/05/18 08:03 08/05/18 08:03 08/05/18 07:53 08/05/18 08:03 Pulse Oximeter Nocturnal Start: 07/29/18 14:49 Freq: RTQ4 Status: Complete Protocol: Document 07/30/18 06:41 CMI (Rec: 07/30/18 06:41 CMI [id number]) Nocturnal Pulse Oximetry Equipment Usage Equipment Discontinued Continuous SpO2 Machine # 9 Intake & Output 08/04/18 08/05/18 08/06/18 06:59 06:59 06:59 Intake Total 844 1065 Output Total 1150 1000 Balance -306 65 Weight 116.6 kg 113 kg General appearance: PRESENT: no acute distress, obese, well-developed, well- nourished Head exam: PRESENT: atraumatic, normocephalic Eye exam: PRESENT: conjunctiva pink, EOMI, PERRLA. ABSENT: scleral icterus Ear exam: PRESENT: normal external ear exam Mouth exam: PRESENT: moist, tongue midline Respiratory exam: PRESENT: other - Good airflow bilaterally. No appreciable wheeze or rhonchi or rales Cardiovascular exam: PRESENT: RRR, +S1, +S2 GI/Abdominal exam: PRESENT: normal bowel sounds, soft. ABSENT: distended, guarding, mass, organolmegaly, rebound, tenderness Rectal exam: PRESENT: deferred Extremities exam: PRESENT: other - 1-2+ bilateral lower extremity edema. Trace bilateral upper extremity edema. Musculoskeletal exam: PRESENT: normal inspection Neurological exam: PRESENT: alert, awake, oriented to person, oriented to place, oriented to time, oriented to situation, CN II-XII grossly intact. ABSENT: motor sensory deficit Psychiatric exam: PRESENT: appropriate affect, normal mood. ABSENT: homicidal ideation, suicidal ideation Results Laboratory Results: 08/03/18 04:28 08/04/18 03:53 07/27/18 05:56 Troponin I < 0.012 Impressions: Chest X-Ray 07/27/18 05:49 IMPRESSION: Worsening includes mild to moderate mixed interstitial and airspace opacities. Abdomen/Pelvis CT 07/31/18 09:44 IMPRESSION: NO SIGNIFICANT OR ACUTE FINDING IN THE ABDOMEN OR PELVIS ON CT SCAN WITH IV CONTRAST. Assessment & Plan - Diagnosis (1) Acute kidney injury Is this a current diagnosis for this admission?: Yes (2) Benzodiazepine dependence, continuous Is this a current diagnosis for this admission?: Yes (3) Morbid obesity with BMI of 45.0-49.9, adult Is this a current diagnosis for this admission?: Yes (4) Opiate dependence, continuous Is this a current diagnosis for this admission?: Yes - Time Time Spent with patient: 15-24 minutes Medications reviewed and adjusted accordingly: Yes Anticipated discharge: SNF - Inpatient Certification Based on my medical assessment, after consideration of the patient's comorbidities, presenting symptoms, or acuity I expect that the services needed warrant INPATIENT care.: No I certify that my determination is in accordance with my understanding of Medicare's requirements for reasonable and necessary INPATIENT services [42 CFR 412.3e].: No - Plan Summary Plan Summary: -Full transfer summary dictated on August 03. -Continue previous plan as listed below. (1) HCAP (healthcare-associated pneumonia) Is this a current diagnosis for this admission?: Yes Summary: Gram-negative pneumonia. Has completed course of oral Levaquin. (2) Chronic obstructive pulmonary disease with acute exacerbation Is this a current diagnosis for this admission?: Yes Summary: Has been weaned from both steroids and oxygen. (3) Acute on chronic respiratory failure with hypoxia and hypercapnia Is this a current diagnosis for this admission?: Yes Summary: Secondary to numbers 1 and 2 resolved. (4) Acute kidney injury Is this a current diagnosis for this admission?: Yes Summary: Resolved. Creatinine is at baseline. 07/27/18 08/03/18 05:56 04:28 Creatinine 1.82 H 1.20 (5) Chronic kidney disease, stage 3 Is this a current diagnosis for this admission?: Yes Summary: Creatinine is back to its baseline at 1.2. (6) Opiate dependence, continuous Is this a current diagnosis for this admission?: Yes Summary: The patient has been counseled regarding this. (7) Benzodiazepine dependence, continuous Is this a current diagnosis for this admission?: Yes (8) Polypharmacy Is this a current diagnosis for this admission?: Yes Summary: During the admission: the patient has been found at times difficult to arouse at times. At one point during her last admission she was found with her teeth on her chest where they had fallen out of her mouth. Made an attempt to reduce the patient's occasions. Change medications to as needed as well as he will hold off on Flexeril. Patient was on different sleep sedatives at night including Belsomra, Requip, doxepin and Lunesta. -Not an issue over the last 48 hours. We did discuss the risk of taking benzodiazepines and narcotics at the same time. She wishes to continue on her current medication regimen. (9) Nausea Is this a current diagnosis for this admission?: Yes Summary: Most likely secondary to the patient's polypharmacy. (10) Cerebral vascular disease Is this a current diagnosis for this admission?: Yes (11) Hypertension Is this a current diagnosis for this admission?: Yes (12) Hypomagnesemia Is this a current diagnosis for this admission?: Yes Summary: Continues to be supplemented. (13) Diastolic dysfunction Is this a current diagnosis for this admission?: Yes Summary: Patient seems to be at her baseline/optimal bulimia level. She was restarted on Zaroxolyn 2.5 mg daily prior to discharge. She was administered a one-time dose of 5 mg Zaroxolyn on August 05. She was restarted on 1 mg of Bumex daily on discharge. She was advised to follow-up with outpatient physician in the next 1-2 weeks for further management. She is aware that she needs labs and further monitoring. (14) Hyperlipidemia Is this a current diagnosis for this admission?: Yes (15) Hypothyroidism Is this a current diagnosis for this admission?: Yes (16) Anemia in chronic kidney disease Is this a current diagnosis for this admission?: Yes Summary: At baseline. 07/27/18 08/03/18 05:56 04:28 Hgb 9.5 L 10.2 L (17) Chronic back pain Is this a current diagnosis for this admission?: Yes (18) Morbid obesity with BMI of 45.0-49.9, adult Is this a current diagnosis for this admission?: Yes
[2018-08-05 11:51] VITALS: BP 121/60
[2018-08-06] MEDS ORDERED: METOLAZONE 5 MG TABLET PO SCH (10:00)
== END 2018-08-05 11:30 | DRG 189 ==
LOC: ER 05:44 → EH 08:00 → 3N 09:52
PROVIDERS: ADMIT Internal Medicine; ATTEND Internal Medicine
PROC: 5A09457 Assistance with Respiratory Ventilation, 24-96 Consecutive Hours, Continuous Positive Airway Pressure (ICD-10-PCS; principal; 2018-07-27)
DX: J96.22 Acute and chronic respiratory failure with hypercapnia (principal); J18.9 Pneumonia, unspecified organism; J44.0 Chronic obstructive pulmonary disease with (acute) lower respiratory infection; J44.1 Chronic obstructive pulmonary disease with (acute) exacerbation; N17.9 Acute kidney failure, unspecified; F11.20 Opioid dependence, uncomplicated; F13.20 Sedative, hypnotic or anxiolytic dependence, uncomplicated; I13.0 Hypertensive heart and chronic kidney disease with heart failure and stage 1 through stage 4 chronic kidney disease, or unspecified chronic kidney disease; I50.30 Unspecified diastolic (congestive) heart failure; Z68.41 Body mass index [BMI] 40.0-44.9, adult; J96.21 Acute and chronic respiratory failure with hypoxia; I11.0 Hypertensive heart disease with heart failure; N18.3 Chronic kidney disease, stage 3 (moderate); D63.1 Anemia in chronic kidney disease; R11.0 Nausea; E83.42 Hypomagnesemia; I67.9 Cerebrovascular disease, unspecified; E78.5 Hyperlipidemia, unspecified; E03.9 Hypothyroidism, unspecified; F32.9 Major depressive disorder, single episode, unspecified; M54.9 Dorsalgia, unspecified; G89.29 Other chronic pain; E66.01 Morbid (severe) obesity due to excess calories; Z79.899 Other long term (current) drug therapy; Z90.710 Acquired absence of both cervix and uterus; Z98.51 Tubal ligation status; Z87.891 Personal history of nicotine dependence; Z88.1 Allergy status to other antibiotic agents; Z88.8 Allergy status to other drugs, medicaments and biological substances; Z86.73 Personal history of transient ischemic attack (TIA), and cerebral infarction without residual deficits
CPT/HCPCS: 36415; 71045; 74177; 80048; 80053; 81001; 82803; 83605; 83735; 84443; 84484; 85025; 85027; 87040; 87045; 87086; 87205; 87493; 89055; 93005; 93010; 94640; 94660; 94667; 94668; 94762; 96365; 96368; 96375; 99291; J1652; J1956; J2185; J2930; J3370; J3490; J7030; J7060; J7120; J7512; J7620; S0028

== ENCOUNTER 2018-08-14 20:37 | Observation (INO) | payer MEDICARE, OTHER ==
[2018-08-14] MEDS ORDERED: NORMAL SALINE 1000 ML 500 ML IV ONE ×2 (21:13→22:57)
--- NOTE | 2018-08-14 21:15 | ER Document Report ---
ED General - General Chief Complaint: Shortness Of Breath Stated Complaint: SHORTNESS OF BREATH Time Seen by Provider: 08/14/18 20:55 Notes: Patient is a 63-year-old female with a past medical history of COPD, chronic debility, mostly bedbound at baseline, who presents with an episode of weakness and shortness of breath. The patient states that she was recently discharged from nursing facility 3 days ago at her request. States that she had been doing relatively well today until this evening when she was apparently try to get out of bed, became very lightheaded and felt too weak to do so. She states that her is unable to assist her as he has chronic back issues on his own and she was unable to get out of bed. She states that her also state that she seemed very pale and weak. EMS was contacted and she was subsequently transported to the emergency department. At the time of my evaluation she denies any specific complaints other than feeling generally weak. Nothing improves or worsens her symptoms. Denies any chest pain, headache, focal weakness or numbness. No confusion. No recent fever or constitutional symptoms. TRAVEL OUTSIDE OF THE [place] IN LAST 30 DAYS: No - Related Data Allergies/Adverse Reactions: pregabalin [From Lyrica] Allergy (Unknown, Verified 07/17/18 07:41) trazodone HCl [From Desyrel] Allergy (Unknown, Verified 07/17/18 07:41) cephalexin monohydrate [From Keflex] Adverse Reaction (Verified 07/17/18 07:41) nausea, vomiting erythromycin base [Erythromycin Base] Adverse Reaction (Verified 07/17/18 07:41) nausea, vomiting Past Medical History - General Information source: Patient - Social History Smoking Status: Former Smoker Frequency of alcohol use: None Drug Abuse: None Lives with: Spouse/Significant other Family History: Reviewed & Not Pertinent - Past Medical History Cardiac Medical History: Reports: Hx Congestive Heart Failure, Hx Hypercholesterolemia, Hx Hypertension Denies: Hx Coronary Artery Disease - HIGH CHOLESTEROL Pulmonary Medical History: Reports: Hx Asthma, Hx Bronchitis, Hx COPD, Hx Pneumonia Denies: Hx Tuberculosis Neurological Medical History: Reports: Hx Cerebrovascular Accident - 7 YEARS AGO HAS "MEMORY ISSUES" "STROKE X5. Denies: Hx Seizures Endocrine Medical History: Reports: Hx Hypothyroidism Renal/ Medical History: Reports: Hx Renal Insufficiency. Denies: Hx Peritoneal Dialysis Psychiatric Medical History: Reports: Hx Depression Infectious Medical History: Denies: Hx HIV Past Surgical History: Reports: Hx Dilation and Curettage, Hx Hysterectomy, Hx Tubal Ligation - Immunizations Hx Diphtheria, Pertussis, Tetanus Vaccination: Yes Review of Systems - Review of Systems Notes: Constitutional: Negative for fever. HENT: Negative for sore throat. Eyes: Negative for visual changes. Cardiovascular: Negative for chest pain. Respiratory: Positive for shortness of breath. Gastrointestinal: Negative for abdominal pain, vomiting or diarrhea. Genitourinary: Negative for dysuria. Musculoskeletal: Negative for back pain. Skin: Negative for rash. Neurological: Negative for headaches, weakness or numbness. 10 point ROS negative except as marked above and in HPI. Physical Exam - Vital signs Vitals: Temp Resp BP Pulse Ox 97.8 F 18 113/45 L 100 08/14/18 20:45 08/14/18 20:45 08/14/18 20:45 08/14/18 20:45 Interpretation: Normal Notes: PHYSICAL EXAMINATION: GENERAL: Well-appearing, well-nourished and in no acute distress. HEAD: Atraumatic, normocephalic. EYES: Pupils equal round and reactive to light, extraocular movements intact, sclera anicteric, conjunctiva are normal. ENT: nares patent, oropharynx clear without exudates. Moist mucous membranes. NECK: Normal range of motion, supple without lymphadenopathy LUNGS: Rattling breath sounds throughout. Mild tachypnea. HEART: Regular rate and rhythm without murmurs ABDOMEN: Soft, nontender, normoactive bowel sounds. No guarding, no rebound. No masses appreciated. EXTREMITIES: Normal range of motion, trace edema in the bilateral lower extremities that is equal and symmetric. No cyanosis. NEUROLOGICAL: No focal neurological deficits. Moves all extremities spontaneously and on command. PSYCH: Normal mood, normal affect. SKIN: Warm, Dry, normal turgor, no rashes or lesions noted. Course - Re-evaluation Re-evalutation: 08/14/18 21:14 Patient presents with complaints of progressively worsening generalized weakness, difficulty getting up out of bed, intermittent shortness of breath and a cough that has developed over the last 24 hours. Patient was recently discharged from a nursing facility, 3 days ago at her request where she was apparently there for rehab. On presentation patient is in no acute distress, reading a book. However of note her blood pressure is quite soft 92/47 and she states that normally she does not run this low. Her initial blood pressure was even lower. On exam patient appears mildly dehydrated. She has rattling, coarse breath sounds, mild tachypnea, saturating 96% on 3 L by nasal cannula although she does not normally use oxygen at baseline. Will proceed with chest x-ray, labs, EKG, continue on surveillance system monitor, given 500 cc fluid bolus and reassess. We also seeing to what level the patient's hypoxia goes off of oxygen 08/14/18 23:11 I have discussed with the patient at length regarding her initial hypotension, somewhat depressed renal function similar to when she was hospitalized on 6 of this month. The patient's blood pressure has been very fluid responsive, has come into the 120s systolic and 60s diastolic after 500 cc fluid bolus. Her oxygenation is also stabilized currently 90-93% on room air. The patient did go as low as 87% on room air with a good Plath earlier. I did offer to give additional fluid boluses, recheck basic panel and plan for discharge home. However patient did not feel comfortable with this plan, feels like she is worried about her breathing pattern as well as her global weakness. I discussed with the hospitalist who has accepted for observation - Vital Signs Vital signs: Temp Pulse Resp BP Pulse Ox 97.8 F 17 105/62 95 08/14/18 20:45 08/15/18 03:31 08/15/18 03:31 08/15/18 03:31 - Laboratory Result Diagrams: 08/14/18 20:49 08/14/18 20:49 Laboratory results interpreted by me: 08/14/18 08/14/18 20:49 20:49 RBC 3.26 L Hgb 9.8 L Hct 29.5 L RDW 15.5 H BUN 33 H Creatinine 1.81 H Est GFR ( Amer) 34 L Est GFR (Non-Af Amer) 28 L Glucose 121 H AST 40 H - Diagnostic Test Radiology reviewed: Image reviewed, Reports reviewed Radiology results interpreted by me: 08/14/18 23:12 Chest x-ray: No acute infiltrate or pneumothorax Discharge - Discharge Clinical Impression: Acute kidney injury superimposed on chronic kidney disease COPD (chronic obstructive pulmonary disease) Qualifiers: COPD type: unspecified COPD Qualified Code(s): J44.9 - Chronic obstructive pu lmonary disease, unspecified Hypotension Qualifiers: Hypotension type: unspecified hypotension type Qualified Code(s): I95.9 - Hypotension, unspecified Condition: Fair Disposition: ADMITTED OBSERVATION Admitting Provider: Hospitalist Unit Admitted: Medical Floor
[2018-08-14 21:35] LABS: ABSOLUTE BASOPHILS # (AUTO) 0.1 10^3/uL (0.0-0.2); ABSOLUTE EOSINOPHILS # (AUTO) 0.3 10^3/uL (0.0-0.6); ABSOLUTE MONOCYTES (AUTO) 0.6 10^3/uL (0.1-1.4); HEMATOCRIT 29.5 % (36.0-47.0); HEMOGLOBIN 9.8 g/dL (12.0-15.5); LYMPHOCYTES % (AUTO) 33.5 % (13-45); MEAN CORPUSCULAR HGB CONC 33.1 g/dL (32.0-36.0); MEAN CORPUSCULAR VOLUME 91 fl (80-97); MONOCYTES % (AUTO) 9.9 % (3-13); PLATELET COUNT 245 10^3/uL (150-450); RED BLOOD COUNT 3.26 10^6/uL (3.72-5.28); RED CELL DISTRIBUTION WIDTH 15.5 % (11.5-14.0); SEGMENTED NEUTROPHILS % (AUTO) 50.6 % (42-78); TOTAL CELLS COUNTED % (AUTO) 100 %; WHITE BLOOD COUNT 5.9 10^3/uL (4.0-10.5)
--- NOTE | 2018-08-14 21:40 | RADIOLOGY REPORT (SQ) ---
EXAM DESCRIPTION: XR CHEST 1 VIEW COMPLETED DATE/TME: 08/14/2018 21:12 CLINICAL HISTORY: 63 years, Female, sob, cough COMPARISON: 07/27/2018 chest NUMBER OF VIEWS: 1 TECHNIQUE: Portable chest LIMITATIONS: None. FINDINGS: The heart size is stable. Osteopenia. Lungs are clear. No pneumothorax IMPRESSION: No acute cardiopulmonary process copyright 2010 [employer]- All Rights Reserved
[2018-08-14 21:42] LABS: ALANINE AMINOTRANSFERASE 24 U/L (9-52); ALBUMIN 3.5 g/dL (3.5-5.0); ALKALINE PHOSPHATASE 104 U/L (38-126); ANION GAP 5 (5-19); ASPARTATE AMINO TRANSFERASE 40 U/L (14-36); BILIRUBIN,DIRECT 0.2 mg/dL (0.0-0.4); BILIRUBIN,TOTAL 0.3 mg/dL (0.2-1.3); BLOOD UREA NITROGEN 33 mg/dL (7-20); CALCIUM 8.9 mg/dL (8.4-10.2); CARBON DIOXIDE 28 mmol/L (22-30); CHLORIDE 105 mmol/L (98-107); GLUCOSE 121 mg/dL (75-110); POTASSIUM 4.3 mmol/L (3.6-5.0); SODIUM 138.3 mmol/L (137-145); TOTAL PROTEIN 6.6 g/dL (6.3-8.2)
[2018-08-14 21:56] LABS: NT PRO BNP 274 pg/mL (5-900)
[2018-08-14 21:59] LABS: TROPONIN I < 0.012 ng/mL
[2018-08-14] MEDS ORDERED: IPRATROPIUM/ALBUTEROL 0.5-2.5 MG/3 ML AMPUL NEB ONE (23:05)
[2018-08-15] MEDS ORDERED: ONDANSETRON HCL INJ/PF 4 MG/2 ML SDV IV PRN (00:37)
[2018-08-15] MEDS ORDERED: ONDANSETRON 4 MG TAB.RAPDIS PO PRN (00:37)
[2018-08-15] MEDS ORDERED: MAG HYDROX/AL HYDROX/SIMETH SUSP 30 ML UDCUP PO PRN (00:37)
[2018-08-15] MEDS ORDERED: MAGNESIUM HYDROXIDE SUSP 30 ML UDCUP PO PRN (00:37)
[2018-08-15] MEDS ORDERED: (PENDING PHARMACY ID) (Suvorexant [Belsomra] 20 MG) PO PRN (00:43)
[2018-08-15] MEDS ORDERED: ALBUTEROL SULFATE 0.083% NEB 2.5 MG/3 ML AMPUL NEB PRN (00:43)
[2018-08-15] MEDS ORDERED: ALBUTEROL SULFATE HFA (90 MCG/PUFF) 200 PUFF/8.5 GM MDI IH PRN (00:43)
[2018-08-15] MEDS ORDERED: FLUTICASONE NASAL SPRAY 50 MCG/SPRY 120 SPRAY/16 GM NASL PRN (00:43)
[2018-08-15] MEDS ORDERED: ACETAMINOPHEN 325 MG TABLET PO PRN (00:54)
[2018-08-15] MEDS ORDERED: MORPHINE SULFATE 10 MG/ML INJ IV PRN ×2 (00:54)
[2018-08-15 03:40] LABS: CREATINE KINASE MB 3.96 ng/mL (<4.55)
[2018-08-15 03:47] LABS: TROPONIN I < 0.012 ng/mL
[2018-08-15] MEDS ORDERED: PRIMIDONE 50 MG TABLET ONE (05:58)
[2018-08-15] MEDS ORDERED: HEPARIN SOD (PORCINE) 5,000 UNIT/ML 1 ML SYRINGE SUBCUT SCH (06:00)
[2018-08-15] MEDS: LEVOTHYROXINE SODIUM 0.1 MG TABLET PO SCH (06:12)
[2018-08-15] MEDS: PRIMIDONE 50 MG TABLET PO SCH ×3 (06:12→21:25)
[2018-08-15] MEDS: ALPRAZOLAM 0.5 MG TABLET PO PRN ×2 (06:16→14:49)
--- NOTE | 2018-08-15 08:57 | PDOC H&P ---
History of Present Illness Admission Date/PCP: 08/14/18 23:37 MARK HAILE MD Patient complains of: Generalized weakness and dizziness History of Present Illness: LEATHA ATKINS is a 63 year old female who presented to the emergency room with weakness and some mild dyspnea occurring just prior to her arrival. She admits that she has had episodic weakness for the last 3 days since she was discharged from a local nursing facility. Her weakness episodes had been relatively mild and she had essentially ignored them until just prior to her arrival when she was trying to get out of bed and became very weak and felt a little lightheaded. Her tried to assist her but was unable to due to his only chronic back pain. She subsequently was unable to get out of the bed and EMS was called to bring her to the emergency room. She denies any associated symptoms with the exception of the mild dyspnea which she has on a chronic basis due to her COPD and some dizziness or lightheadedness with attempts to stand. She admits to having had similar symptoms in the past but has not identified any other aggravating or ameliorating factors for her weakness and dizziness. In the emergency room she was found to be mildly hypotensive and was also noted to have a dramatic improvement with small volumes of IV fluid. Her symptoms had essentially resolved but she chose to ask to stay for the remainder of the night to be sure that her symptoms would not recur immediately. She was reassured that her symptoms should be well controlled as long as she remains well-hydrated and I have instructed her in reducing her medications (diuretics and antihypertensives) in order to alleviate the problem of postural hypotension. She was still somewhat reserved therefore she was admitted for observation status to be discharged later today after having a chance to take her medications and experience the effect of her new dosages. Past Medical History Cardiac Medical History: Reports: Congestive Heart Failure, Hyperlipidema, Hype rtension Denies: Coronary Artery Disease - HIGH CHOLESTEROL Pulmonary Medical History: Reports: Asthma, Bronchitis, Chronic Obstructive Pulmonary Disease (COPD), Pneumonia Denies: Tuberculosis EENT Medical History: Reports: None Neurological Medical History: Denies: Multiple Sclerosis, Seizures Endocrine Medical History: Reports: Hypothyroidism, Obesity Denies: Diabetes Mellitus Type 1, Diabetes Mellitus Type 2, Hyperthyroidism Renal/ Medical History: Reports: Chronic Kidney Disease Denies: End Stage Renal Disease, Nephrolithiasis Malignancy Medical History: Reports: None GI Medical History: Denies: Cirrhosis, Hepatitis Musculoskeltal Medical History: Denies: Arthritis, Fibromyalgia, Gout Skin Medical History: Denies: Eczema, Psoriasis Psychiatric Medical History: Reports: Depression Denies: Alcohol Dependency, Substance Abuse, Tobacco Dependency Traumatic Medical History: Reports: None Hematology: Denies: Anemia, Bleeding Tendencies Infectious Medical History: Reports: None Past Surgical History Past Surgical History: Reports: Hysterectomy, Tubal Ligation Social History Information Source: Patient Lives with: Spouse/Significant other Smoking Status: Never Smoker Frequency of Alcohol Use: None Hx Recreational Drug Use: No Drugs: None Hx Prescription Drug Abuse: No - Advance Directive Resuscitation Status: Full Code Surrogate healthcare decision maker:: Family History Family History: Hypertension Parental Family History Reviewed: Yes Children Family History Reviewed: No Sibling(s) Family History Reviewed.: Yes Medication/Allergy Home Medications: Albuterol Sulfate [Proair HFA Inhalation Aerosol 8.5 gm MDI] 1 puff IH QIDP PRN 07/17/18 Atorvastatin Calcium [Lipitor 20 mg Tablet] 20 mg PO DAILY 07/17/18 Donepezil HCl [Aricept] 10 mg PO DAILY 07/17/18 Doxepin HCl [[place] 25 mg Capsule] 50 mg PO QHS 07/17/18 Duloxetine HCl [Cymbalta 20 mg Capsule.dr] 40 mg PO DAILY 07/17/18 Ergocalciferol (Vitamin D2) [Drisdol 50,000 unit (1.25MG) Capsule] 50,000 unit PO [id number] 07/17/18 Fluoxetine HCl [Prozac] 80 mg PO DAILY 07/17/18 Fluticasone Propionate [Flonase Nasal [place] 50 Mcg/[place] 16 gm] 1 spray NASL DAILYP PRN 07/17/18 Fondaparinux Sodium [Arixtra Inj 7.5 mg/0.6 ml Disp. Syrin] 7.5 mg SUBCUT DAILY 07/17/18 Levocetirizine Dihydrochloride [Xyzal] 5 mg PO DAILY 07/17/18 Levothyroxine Sodium 200 mcg PO QAM 07/17/18 Nystatin [Mycostatin Topical Powder 15 gm] 1 applic TP BIDP PRN 07/17/18 Pnv No.95/Ferrous Fum/Folic AC [ Multivitamin Tablet] 1 each PO DAILY 07/17/18 Promethazine HCl [Phenergan 25 mg Tablet] 25 mg PO Q8HP PRN 07/17/18 Suvorexant [Belsomra] 20 mg PO HSP PRN 07/17/[address] [place] [Spiriva Handihaler 5 Cap/Kit (18 Mcg/Cap)] 1 cap IH DAILY 07/17/18 Fluticasone/Salmeterol [Advair 250-50 Diskus 14 Dose/Diskus] 1 inh IH Q12 inhaler 07/20/18 Magnesium Oxide [Mag-Ox 400 mg Tablet] 400 mg PO DAILY tablet 07/20/18 Primidone [Mysoline 50 mg Tablet] 50 mg PO Q8 tablet 07/20/18 Ramipril [Altace 2.5 mg Capsule] 2.5 mg PO QHS capsule 07/20/18 Ropinirole HCl [Requip 0.25 mg Tablet] 0.25 mg PO Q12 tablet 07/20/18 Diphenoxylate HCl/Atropine [Lomotil 2.5-0.025 mg Tablet] 1 each PO DAILYP PRN 07/27/18 Omeprazole 20 mg PO DAILY 07/27/18 Potassium Chloride 20 meq PO DAILY 07/27/18 Acetaminophen [Tylenol 325 mg Tablet] 650 mg PO Q6HP PRN tablet 08/03/18 Albuterol Sulfate [Ventolin 0.083% Neb 2.5 mg/3 mL Ampul] 2.5 mg NEB RTQ4HP PRN vial.neb 08/03/18 Alprazolam [Xanax 0.5 mg Tablet] 0.5 mg PO BIDP PRN #10 tablet 08/03/18 Oxycodone HCl/Acetaminophen [Percocet 10-325 mg Tablet] 1 each PO QIDP PRN #20 tablet 08/03/18 Alprazolam [Xanax 0.5 mg Tablet] 0.5 mg PO BID #10 tablet 08/05/18 Bumetanide [Bumex 1 mg Tablet] 1 tab PO DAILY #30 tab 08/05/18 Metolazone [Zaroxolyn 2.5 Mg Tablet] 2.5 mg PO DAILY #30 tablet 08/05/18 Oxycodone HCl/Acetaminophen [Oxycodone-Acetaminophen 10-325] 1 each PO QIDP PRN #20 tablet 08/05/18 Allergies/Adverse Reactions: pregabalin [From Lyrica] Allergy (Unknown, Verified 07/17/18 07:41) trazodone HCl [From Desyrel] Allergy (Unknown, Verified 07/17/18 07:41) cephalexin monohydrate [From Keflex] Adverse Reaction (Verified 07/17/18 07:41) nausea, vomiting erythromycin base [Erythromycin Base] Adverse Reaction (Verified 07/17/18 07:41) nausea, vomiting Review of Systems Constitutional: PRESENT: as per HPI, weakness - Generalized. ABSENT: chills, fever(s) Eyes: ABSENT: visual disturbances, other - Ocular pain Ears: ABSENT: hearing changes, other - Ear pain Nose, Mouth, and Throat: ABSENT: mouth pain, sore throat Cardiovascular: PRESENT: dyspnea on exertion, edema. ABSENT: chest pain, orth ropnea, palpitations Respiratory: PRESENT: dyspnea. ABSENT: cough Gastrointestinal: ABSENT: abdominal pain, constipation, diarrhea, nausea, vomiting Genitourinary: ABSENT: dysuria, hematuria Musculoskeletal: ABSENT: deformity, joint swelling Integumentary: ABSENT: pruritus, rash Neurological: ABSENT: confusion, convulsions, memory loss Psychiatric: ABSENT: anxiety, depression Endocrine: ABSENT: cold intolerance, heat intolerance Hematologic/Lymphatic: ABSENT: easy bleeding, easy bruising Physical Exam Vital Signs: Temp Pulse Resp BP Pulse Ox 97.8 F 16 123/66 95 08/14/18 20:45 08/15/18 01:01 08/15/18 01:01 08/15/18 01:01 Intake & Output 08/13/18 08/14/18 08/15/18 23:59 23:59 23:59 Intake Total 500 Output Total 40 Balance 500 -40 Weight 113.398 kg General appearance: PRESENT: no acute distress, cooperative, obese Head exam: PRESENT: atraumatic, normocephalic Eye exam: PRESENT: conjunctiva pink, EOMI. ABSENT: scleral icterus Ear exam: PRESENT: normal external ear exam. ABSENT: bleeding, drainage Mouth exam: PRESENT: dry mucosa, neck supple Neck exam: ABSENT: JVD, thyromegaly, tracheal deviation Respiratory exam: PRESENT: clear to auscultation allison, symmetrical, unlabored Cardiovascular exam: PRESENT: RRR. ABSENT: clicks, gallop, rubs Pulses: PRESENT: normal radial pulses, normal dorsalis pedis pul Vascular exam: PRESENT: normal capillary refill. ABSENT: pallor GI/Abdominal exam: PRESENT: normal bowel sounds, soft Rectal exam: PRESENT: deferred Extremities exam: ABSENT: joint swelling, pedal edema Musculoskeletal exam: ABSENT: deformity, dislocation Neurological exam: PRESENT: alert, oriented to person, oriented to place, oriented to time, oriented to situation, CN II-XII grossly intact. ABSENT: motor sensory deficit Psychiatric exam: PRESENT: appropriate affect, normal mood Skin exam: PRESENT: dry, intact, warm. ABSENT: jaundice, rash, urticaria Results Laboratory Results: 08/14/18 20:49 08/14/18 20:49 08/14/18 08/14/18 20:49 20:49 WBC 5.9 RBC 3.26 L Hgb 9.8 L Hct 29.5 L MCV 91 MCH 30.0 MCHC 33.1 RDW 15.5 H Plt Count 245 Seg Neutrophils % 50.6 Lymphocytes % 33.5 Monocytes % 9.9 Eosinophils % 5.0 Basophils % 1.0 Absolute Neutrophils 3.0 Absolute Lymphocytes 2.0 Absolute Monocytes 0.6 Absolute Eosinophils 0.3 Absolute Basophils 0.1 Sodium 138.3 Potassium 4.3 Chloride 105 Carbon Dioxide 28 Anion Gap 5 BUN 33 H Creatinine 1.81 H Est GFR ( Amer) 34 L Est GFR (Non-Af Amer) 28 L Glucose 121 H Calcium 8.9 Total Bilirubin 0.3 AST 40 H ALT 24 Alkaline Phosphatase 104 Total Protein 6.6 Albumin 3.5 08/14/18 20:49 Troponin I < 0.012 NT-Pro-B Natriuret Pep 274 Impressions: Chest X-Ray 08/14/18 21:12 IMPRESSION: No acute cardiopulmonary process copyright 2011 [employer] All Rights Reserved Assessment & Plan - Diagnosis (1) Hypotension Qualifiers: Hypotension type: hypotension due to hypovolemia Qualified Code(s): I95.89 - Other hypotension; E86.1 - Hypovolemia Is this a current diagnosis for this admission?: Yes Plan: Patient's hypotension responded rapidly to volume replacement with complete resolution. She is most likely iatrogenically induced with excessive diuretic therapy for her congestive heart failure. Her diuretic therapy will be adjusted and patient should be discharged home after receiving her new medications. (2) COPD (chronic obstructive pulmonary disease) Qualifiers: COPD type: unspecified COPD Qualified Code(s): J44.9 - Chronic obstructive pulmonary disease, unspecified Is this a current diagnosis for this admission?: Yes Plan: Patient will be continued on her current regimen of treatment for her COPD with adjustments made if required. (3) Chronic kidney disease, stage 3 Is this a current diagnosis for this admission?: Yes Plan: Patient's medications will be adjusted to decrease her diuretic agents and this may have some effect on her chronic kidney disease. This will be in the category of things that need to be reevaluated on her follow-up visits with her primary care provider. (4) Hypothyroidism Qualifiers: Hypothyroidism type: unspecified Qualified Code(s): E03.9 - Hypothyroidism, unspecified Is this a current diagnosis for this admission?: Yes Plan: Patient will be continued on her usual thyroid replacement during her hospital course. - Time Time Spent: 30 to 50 Minutes Critical Time spent with patient: Less than 15 minutes Medications reviewed and adjusted accordingly: Yes Anticipated discharge: Home - Inpatient Certification Based on my medical assessment, after consideration of the patient's comorbidit ies, presenting symptoms, or acuity I expect that the services needed warrant INPATIENT care.: No I certify that my determination is in accordance with my understanding of [facility]'s requirements for reasonable and necessary INPATIENT services [42 CFR 412.3e].: No Medical Necessity: Risk of Complication if Not Cared For in Hospital
--- NOTE | 2018-08-15 09:07 | EKG REPORT ---
SEVERITY:- NORMAL ECG - SINUS RHYTHM : Confirmed by: Ladonna Ellis MD 15-Aug-2018 09:06:57
[2018-08-15] MEDS: FLUTICASONE/SALMETEROL DISKUS 250-50 MCG/DOSE IH SCH ×2 (09:46→21:24)
[2018-08-15] MEDS: FONDAPARINUX SODIUM INJ 7.5 MG/0.6 ML DISP.SYRIN SUBCUT SCH (09:47)
[2018-08-15] MEDS: POTASSIUM CHLORIDE 10 MEQ CAPSULE.ER PO SCH (09:48)
[2018-08-15] MEDS: DULOXETINE HCL 20 MG CAPSULE.DR PO SCH (09:48)
[2018-08-15] MEDS: DOCUSATE SODIUM 100 MG CAPSULE PO SCH ×2 (09:48→20:02)
[2018-08-15] MEDS: MAGNESIUM OXIDE 400 MG TABLET PO SCH (09:49)
[2018-08-15] MEDS: FAMOTIDINE 20 MG TABLET PO SCH ×2 (09:49→21:24)
[2018-08-15] MEDS: PRENATAL VITAMIN W DHA CAPSULE PO SCH (09:50)
[2018-08-15] MEDS: FLUOXETINE HCL 20 MG CAPSULE PO SCH (09:50)
[2018-08-15] MEDS: TIOTROPIUM BROMIDE DPI 5 CAP/KIT (18 MCG/CAP) IH SCH (09:51)
[2018-08-15] MEDS: ROPINIROLE HCL 0.25 MG TABLET PO SCH ×2 (09:51→21:24)
[2018-08-15] MEDS: CETIRIZINE 5 MG TABLET PO SCH (09:52)
[2018-08-15] MEDS: NYSTATIN TOPICAL POWDER 15 GM TP PRN (09:57)
[2018-08-15] MEDS ORDERED: BUMETANIDE 1 MG TABLET PO SCH (10:00)
[2018-08-15] MEDS: MORPHINE SULFATE 10 MG/ML INJ IV PRN ×2 (10:59→13:02)
[2018-08-15 13:22] LABS: CREATINE KINASE MB 2.75 ng/mL (<4.55)
[2018-08-15 13:24] LABS: TROPONIN I < 0.012 ng/mL
[2018-08-15 13:58] LABS: APPEARANCE,URINE SLIGHTLY-CLOUDY; BILIRUBIN,URINE NEGATIVE (NEGATIVE); COLOR,URINE YELLOW; GLUCOSE, URINE NEGATIVE (NEGATIVE); KETONES,URINE NEGATIVE (NEGATIVE); LEUKOCYTE ESTERASE,URINE NEGATIVE (NEGATIVE); NITRITE,URINE NEGATIVE (NEGATIVE); PROTEIN,URINE NEGATIVE (NEGATIVE); URINE SPECIFIC GRAVITY 1.009; UROBILINOGEN,URINE NEGATIVE mg/dL (<2.0)
--- NOTE | 2018-08-15 17:59 | PDOC PROGRESS REPORT ---
Subjective Progress Note for:: 08/15/18 Subjective:: No adverse events overnight. Blood pressures were still low this morning. Urine in her Rodriguez catheter was pretty dark. She admits that she does not drink very much fluids. Her last hospitalization presentation was very similar to this presentation and that she was hypotensive and dehydrated with an acute kidney injury. She is on very heavily sedating medications, many of them, and her oral intake is not very good because she sleeps a lot, and combined with her diuretics she is prone to getting dehydrated. Reason For Visit: GENERALIZED WEAKNESS SECONDARY TO IATROGENIC Physical Exam Vital Signs: Temp Pulse Resp BP Pulse Ox 98.0 F 81 20 118/52 L 96 08/15/18 16:43 08/15/18 16:43 08/15/18 16:43 08/15/18 16:43 08/15/18 16:43 Intake & Output 08/14/18 08/15/18 08/16/18 06:59 06:59 06:59 Intake Total 1000 Output Total 40 Balance 960 Weight 113.398 kg 105.9 kg General appearance: PRESENT: no acute distress, cooperative, disheveled, morbidly obese Mouth exam: PRESENT: dry mucosa Respiratory exam: PRESENT: clear to auscultation allison, symmetrical, unlabored. ABSENT: accessory muscle use, crackles, prolonged expiratory phas, rhonchi, tachypnea, wheezes Cardiovascular exam: PRESENT: RRR, +S1, +S2 Pulses: PRESENT: normal carotid pulses Vascular exam: PRESENT: normal capillary refill GI/Abdominal exam: PRESENT: normal bowel sounds, soft. ABSENT: distended, guarding, rebound, tenderness Extremities exam: ABSENT: clubbing, pedal edema Musculoskeletal exam: PRESENT: normal inspection. ABSENT: deformity Neurological exam: PRESENT: alert, awake, oriented to person, oriented to place, oriented to time, oriented to situation Psychiatric exam: PRESENT: appropriate affect, normal mood Skin exam: PRESENT: dry, warm Results Laboratory Results: 08/14/18 20:49 08/14/18 20:49 08/14/18 08/14/18 08/15/18 20:49 20:49 13:18 WBC 5.9 RBC 3.26 L Hgb 9.8 L Hct 29.5 L MCV 91 MCH 30.0 MCHC 33.1 RDW 15.5 H Plt Count 245 Seg Neutrophils % 50.6 Lymphocytes % 33.5 Monocytes % 9.9 Eosinophils % 5.0 Basophils % 1.0 Absolute Neutrophils 3.0 Absolute Lymphocytes 2.0 Absolute Monocytes 0.6 Absolute Eosinophils 0.3 Absolute Basophils 0.1 Sodium 138.3 Potassium 4.3 Chloride 105 Carbon Dioxide 28 Anion Gap 5 BUN 33 H Creatinine 1.81 H Est GFR ( Amer) 34 L Est GFR (Non-Af Amer) 28 L Glucose 121 H Calcium 8.9 Total Bilirubin 0.3 AST 40 H ALT 24 Alkaline Phosphatase 104 Total Protein 6.6 Albumin 3.5 Urine Color YELLOW Urine Appearance SLIGHTLY-CLOUDY Urine pH 5.0 Ur Specific [place] 1.009 Urine Protein NEGATIVE Urine Glucose (UA) NEGATIVE Urine Ketones NEGATIVE Urine Blood NEGATIVE Urine Nitrite NEGATIVE Ur Leukocyte Esterase NEGATIVE Urine WBC (Auto) 1 Urine RBC (Auto) 0 08/14/18 08/15/18 08/15/18 20:49 03:00 03:00 Creatine Kinase 279 H CK-MB (CK-2) 3.96 Troponin I < 0.012 < 0.012 NT-Pro-B Natriuret Pep 274 08/15/18 08/15/18 08/15/18 10:50 10:50 12:42 Creatine Kinase 199 H CK-MB (CK-2) Cancelled 2.75 Troponin I Cancelled < 0.012 NT-Pro-B Natriuret Pep Impressions: Chest X-Ray 08/14/18 21:12 IMPRESSION: No acute cardiopulmonary process copyright 2011 [employer]- All Rights Reserved Assessment & Plan - Diagnosis (1) Acute kidney injury Is this a current diagnosis for this admission?: Yes Plan: I am holding many of her medications and giving her some IV fluids and monito ring her electrolytes and creatinine. She responded well to this treatment during her last hospitalization. (2) Hypotension Qualifiers: Hypotension type: hypotension due to hypovolemia Qualified Code(s): I95.89 - Other hypotension; E86.1 - Hypovolemia Is this a current diagnosis for this admission?: Yes Plan: IV fluids as noted above. Her blood pressure was beginning to respond to the fluids. (3) Polypharmacy Is this a current diagnosis for this admission?: Yes Plan: We discussed this problem at length. I recommended that she discontinue some of her medications and reduce the dosages of some of the others. She seemed particularly hesitant to do so. - Time Time Spent with patient: 25-34 minutes
[2018-08-15] MEDS: ACETAMINOPHEN 325 MG TABLET PO PRN (19:59)
[2018-08-15] MEDS ORDERED: NALBUPHINE HCL INJ 10 MG/1 ML AMPULE IV PRN (20:26)
[2018-08-15] MEDS ORDERED: RAMIPRIL 2.5 MG CAPSULE PO SCH (22:00)
[2018-08-15] MEDS ORDERED: DOXEPIN HCL 25 MG CAPSULE PO SCH (22:00)
[2018-08-15] MEDS ORDERED: ATORVASTATIN CALCIUM 20 MG TABLET PO SCH (22:00)
[2018-08-16] MEDS: LEVOTHYROXINE SODIUM 0.1 MG TABLET PO SCH (05:45)
[2018-08-16] MEDS: PRIMIDONE 50 MG TABLET PO SCH ×2 (05:46→14:24)
[2018-08-16] MEDS: ALPRAZOLAM 0.5 MG TABLET PO PRN ×2 (06:00→14:24)
[2018-08-16] MEDS ORDERED: METOLAZONE 2.5 MG TABLET PO SCH (10:00)
[2018-08-16] MEDS: MAGNESIUM OXIDE 400 MG TABLET PO SCH (10:43)
[2018-08-16] MEDS: FLUOXETINE HCL 20 MG CAPSULE PO SCH (10:43)
[2018-08-16] MEDS: PRENATAL VITAMIN W DHA CAPSULE PO SCH (10:43)
[2018-08-16] MEDS: CETIRIZINE 5 MG TABLET PO SCH (10:43)
[2018-08-16] MEDS: FAMOTIDINE 20 MG TABLET PO SCH (10:43)
[2018-08-16] MEDS: POTASSIUM CHLORIDE 10 MEQ CAPSULE.ER PO SCH (10:43)
[2018-08-16] MEDS: DOCUSATE SODIUM 100 MG CAPSULE PO SCH (10:43)
[2018-08-16] MEDS: ROPINIROLE HCL 0.25 MG TABLET PO SCH (10:43)
[2018-08-16] MEDS: FLUTICASONE/SALMETEROL DISKUS 250-50 MCG/DOSE IH SCH (10:44)
[2018-08-16 10:45] LABS: ANION GAP 5 (5-19); BLOOD UREA NITROGEN 25 mg/dL (7-20); CALCIUM 9.1 mg/dL (8.4-10.2); CARBON DIOXIDE 28 mmol/L (22-30); CHLORIDE 108 mmol/L (98-107); GLUCOSE 90 mg/dL (75-110); POTASSIUM 4.8 mmol/L (3.6-5.0); SODIUM 141.1 mmol/L (137-145)
[2018-08-16] MEDS: TIOTROPIUM BROMIDE DPI 5 CAP/KIT (18 MCG/CAP) IH SCH (10:45)
[2018-08-16] MEDS: NYSTATIN TOPICAL POWDER 15 GM TP PRN (10:50)
[2018-08-16] MEDS: FONDAPARINUX SODIUM INJ 7.5 MG/0.6 ML DISP.SYRIN SUBCUT SCH (10:50)
[2018-08-16] MEDS: ACETAMINOPHEN 325 MG TABLET PO PRN (10:58)
[2018-08-16] MEDS: DULOXETINE HCL 20 MG CAPSULE.DR PO SCH (11:09)
[2018-08-16] MEDS ORDERED: IBUPROFEN 800 MG TABLET PO PRN (12:41)
[2018-08-16 16:48] VITALS: BP 100/47
--- NOTE | 2018-08-16 18:06 | PDOC DISCHARGE SUMMARY ---
General - Admit/Disc Date/PCP Admission Date/Primary Care Provider: 08/14/18 23:37 MARK HAILE MD Discharge Date: 08/16/18 - Discharge Diagnosis (1) Acute kidney injury Is this a current diagnosis for this admission?: Yes Summary: Responded well to IV fluids and withholding some of her medication. She was not getting enough fluids and at home. She is also taking a lot of sedating medications that kept her from wanting to get up to get anything to drink or go to the bathroom, but she was still taking all of her medications, and this caused hypovolemia and subsequent hypoperfusion. Her creatinine responded to IV fluids. (2) Hypotension Is this a current diagnosis for this admission?: Yes Summary: Resolved by withholding her blood pressure medications and giving her some IV fluids. (3) Polypharmacy Is this a current diagnosis for this admission?: Yes Summary: She is on 5 or 6 different sedating medications at home. She does not get up and move very much. She does not like to drink water because it makes her get up and have to go to to the bathroom, but she still takes her diuretic. I have told her that she needs to cut back on her medications in conjunction with her primary care provider. - Additional Information Resuscitation Status: Full Code Discharge Diet: Cardiac Discharge Activity: Activity As Tolerated Home Medications: Albuterol Sulfate [Proair HFA Inhalation Aerosol 8.5 gm MDI] 1 puff IH QIDP PRN 07/17/18 Atorvastatin Calcium [Lipitor 20 mg Tablet] 20 mg PO DAILY 07/17/18 Duloxetine HCl [Cymbalta 20 mg Capsule.dr] 40 mg PO DAILY 07/17/18 Fondaparinux Sodium [Arixtra Inj 7.5 mg/0.6 ml Disp. Syrin] 7.5 mg SUBCUT DAILY 07/17/18 Levocetirizine Dihydrochloride [Xyzal] 5 mg PO DAILY 07/17/18 Levothyroxine Sodium 200 mcg PO QAM 07/17/18 Nystatin [Mycostatin Topical Powder 15 gm] 1 applic TP BIDP PRN 07/17/18 Pnv No.95/Ferrous Fum/Folic AC [ Multivitamin Tablet] 1 each PO DAILY 07/17/18 Suvorexant [Belsomra] 20 mg PO HSP PRN 07/17/18 Tiotropium [place] [Spiriva Handihaler 5 Cap/Kit (18 Mcg/Cap)] 1 cap IH DAILY 07/17/18 Fluticasone/Salmeterol [Advair 250-50 Diskus 14 Dose/Diskus] 1 inh IH Q12 inhaler 07/20/18 Ropinirole HCl [Requip 0.25 mg Tablet] 0.25 mg PO Q12 tablet 07/20/18 Diphenoxylate HCl/Atropine [Lomotil 2.5-0.025 mg Tablet] 1 each PO DAILYP PRN 07/27/18 Omeprazole 20 mg PO DAILY 07/27/18 Albuterol Sulfate [Ventolin 0.083% Neb 2.5 mg/3 mL Ampul] 2.5 mg NEB RTQ4HP PRN vial.neb 08/03/18 Alprazolam [Xanax 0.5 mg Tablet] 0.5 mg PO BIDP PRN #10 tablet 08/03/18 Bumetanide [Bumex 1 mg Tablet] 1 tab PO DAILY #30 tab 08/05/18 Oxycodone HCl/Acetaminophen [Oxycodone-Acetaminophen 10-325] 1 each PO QIDP PRN #20 tablet 08/05/18 Azelastine HCl 1 spray NS DAILY 08/15/18 Cranberry Fruit Extract [Cranberry] 300 mg PO DAILY 08/15/18 Levothyroxine Sodium [Synthroid 0.05 mg Tablet] 50 mcg PO DAILY 08/15/18 Potassium Chloride [Klor-Con M20] 20 meq PO DAILY 08/15/18 History of Present Illness History of Present Illness: LEATHA ATKINS is a 63 year old female who presented to the emergency room with weakness and some mild dyspnea occurring just prior to her arrival. She admits that she has had episodic weakness for the last 3 days since she was discharged from a local nursing facility. Her weakness episodes had been relatively mild and she had essentially ignored them until just prior to her arrival when she was trying to get out of bed and became very weak and felt a little lightheaded. Her tried to assist her but was unable to due to his only chronic back pain. She subsequently was unable to get out of the bed and EMS was called to bring her to the emergency room. She denies any associated symptoms with the exception of the mild dyspnea which she has on a chronic basis due to her COPD and some dizziness or lightheadedness with attempts to stand. She admits to having had similar symptoms in the past but has not identified any other aggravating or ameliorating factors for her weakness and dizziness. In the emergency room she was found to be mildly hypotensive and was also noted to have a dramatic improvement with small volumes of IV fluid. Her symptoms had essentially resolved but she chose to ask to stay for the remainder of the night to be sure that her symptoms would not recur immediately. She was reassured that her symptoms should be well controlled as long as she remains well-hydrated and I have instructed her in reducing her medications (diuretics and antihyp ertensives) in order to alleviate the problem of postural hypotension. She was still somewhat reserved therefore she was admitted for observation status to be discharged later today after having a chance to take her medications and experience the effect of her new dosages. Hospital Course Hospital Course: We withheld a bunch of her medications and gave her some IV fluids and her blood pressure and creatinine responded. She was very comfortable, and never looked uncomfortable, but she continued to ask for her pain medication. Because of her blood pressure I did not give her any, but again, she never looked like she was uncomfortable. Her creatinine had responded well and she was eating and drinking without difficulty. I encouraged her to cut down on her sedating medications and she said she would talk about it with her primary care doctor. Her labs and examination were reassuring and she was discharged in good condition. Physical Exam Vital Signs: Temp Pulse Resp BP Pulse Ox 98.2 F 99 16 100/47 L 97 08/16/18 16:44 08/16/18 16:44 08/16/18 16:44 08/16/18 16:44 08/16/18 16:44 Intake & Output 08/15/18 08/16/18 08/17/18 06:59 06:59 06:59 Intake Total 1000 110 Output Total 40 Balance 960 110 Weight 113.398 kg 107.7 kg General appearance: PRESENT: no acute distress, cooperative, disheveled, morbidly obese Mouth exam: PRESENT: dry mucosa Respiratory exam: PRESENT: clear to auscultation allison, symmetrical, unlabored. ABSENT: accessory muscle use, crackles, prolonged expiratory phas, rhonchi, tachypnea, wheezes Cardiovascular exam: PRESENT: RRR, +S1, +S2 Pulses: PRESENT: normal carotid pulses Vascular exam: PRESENT: normal capillary refill GI/Abdominal exam: PRESENT: normal bowel sounds, soft. ABSENT: distended, guarding, rebound, tenderness Extremities exam: ABSENT: clubbing, pedal edema Musculoskeletal exam: PRESENT: normal inspection. ABSENT: deformity Neurological exam: PRESENT: alert, awake, oriented to person, oriented to place, oriented to time, oriented to situation Psychiatric exam: PRESENT: appropriate affect, normal mood Skin exam: PRESENT: dry, warm Results Laboratory Results: 08/14/18 20:49 08/16/18 10:15 08/16/18 10:15 Sodium 141.1 Potassium 4.8 Chloride 108 H Carbon Dioxide 28 Anion Gap 5 BUN 25 H Creatinine 1.39 H Est GFR ( Amer) 46 L Est GFR (Non-Af Amer) 38 L Glucose 90 Calcium 9.1 08/14/18 08/15/18 08/15/18 20:49 03:00 03:00 Creatine Kinase 279 H CK-MB (CK-2) 3.96 Troponin I < 0.012 < 0.012 NT-Pro-B Natriuret Pep 274 08/15/18 08/15/18 08/15/18 10:50 10:50 12:42 Creatine Kinase 199 H CK-MB (CK-2) Cancelled 2.75 Troponin I Cancelled < 0.012 NT-Pro-B Natriuret Pep Impressions: Chest X-Ray 08/14/18 21:12 IMPRESSION: No acute cardiopulmonary process copyright 2011 [employer]- All Rights Reserved Qualifiers - * PATIENT BEING DISCHARGED WITH ANY OF THE FOLLOWING DIAGNOSIS: No
== END 2018-08-16 17:10 | disposition home or self-care (01) ==
LOC: ER 20:37 → EH 23:37 → 4S 08-15 13:36
PROVIDERS: ADMIT Emergency Medicine; ATTEND Emergency Medicine
DX: N17.9 Acute kidney failure, unspecified (principal); I95.89 Other hypotension; E86.1 Hypovolemia; J44.9 Chronic obstructive pulmonary disease, unspecified; E78.5 Hyperlipidemia, unspecified; E03.9 Hypothyroidism, unspecified; I13.0 Hypertensive heart and chronic kidney disease with heart failure and stage 1 through stage 4 chronic kidney disease, or unspecified chronic kidney disease; N18.3 Chronic kidney disease, stage 3 (moderate); I50.9 Heart failure, unspecified; E66.01 Morbid (severe) obesity due to excess calories; I69.311 Memory deficit following cerebral infarction; Z79.899 Other long term (current) drug therapy; Z98.51 Tubal ligation status; Z90.710 Acquired absence of both cervix and uterus; Z82.49 Family history of ischemic heart disease and other diseases of the circulatory system; Z74.01 Bed confinement status
CPT/HCPCS: 93005; 96376; 94640; 99285; 96372; 96361; 96374; 96375; 36415 ×3; 82553; 82550; 85025; 80048; 80053; 81001; 84484 ×2; 83880; 71045; 93010; G0378 ×3; A9270 ×32; J3490 ×4; J2270; J2300; J1652 ×2; J2405; J7030; J7620; S0119

== ENCOUNTER → 2018-08-27 | Outpatient (CLI) | payer MEDICARE, OTHER ==
[2018-08-27 16:33] LABS: HEMATOCRIT 31.2 % (36.0-47.0); HEMOGLOBIN 10.5 g/dL (12.0-15.5); MEAN CORPUSCULAR HEMOGLOBIN 29.6 pg (27.0-33.4); MEAN CORPUSCULAR HGB CONC 33.5 g/dL (32.0-36.0); MEAN CORPUSCULAR VOLUME 88 fl (80-97); PLATELET COUNT 269 10^3/uL (150-450); RED BLOOD COUNT 3.53 10^6/uL (3.72-5.28); RED CELL DISTRIBUTION WIDTH 15.4 % (11.5-14.0); WHITE BLOOD COUNT 5.2 10^3/uL (4.0-10.5)
[2018-08-27 16:56] LABS: ANION GAP 9 (5-19); BLOOD UREA NITROGEN 22 mg/dL (7-20); CALCIUM 8.1 mg/dL (8.4-10.2); CARBON DIOXIDE 27 mmol/L (22-30); CHLORIDE 107 mmol/L (98-107); GLUCOSE 94 mg/dL (75-110); PHOSPHORUS 3.8 mg/dL (2.5-4.5); POTASSIUM 4.8 mmol/L (3.6-5.0); SODIUM 143.4 mmol/L (137-145)
[2018-08-27 17:19] LABS: APPEARANCE,URINE SLIGHTLY-CLOUDY; BILIRUBIN,URINE NEGATIVE (NEGATIVE); COLOR,URINE YELLOW; GLUCOSE, URINE NEGATIVE (NEGATIVE); KETONES,URINE NEGATIVE (NEGATIVE); LEUKOCYTE ESTERASE,URINE TRACE (NEGATIVE); NITRITE,URINE NEGATIVE (NEGATIVE); PROTEIN,URINE NEGATIVE (NEGATIVE); UROBILINOGEN,URINE NEGATIVE mg/dL (<2.0)
== END ==
LOC: OD 15:48
PROVIDERS: ATTEND Physician Assistant Medical
DX: I12.9 Hypertensive chronic kidney disease with stage 1 through stage 4 chronic kidney disease, or unspecified chronic kidney disease (principal); N18.3 Chronic kidney disease, stage 3 (moderate); D64.9 Anemia, unspecified; E87.6 Hypokalemia
CPT/HCPCS: 36415; 80048; 81001; 83735; 83970; 84100; 85027

== ENCOUNTER → 2018-09-26 | Outpatient (CLI) | payer MEDICARE, OTHER ==
[2018-09-26 14:37] LABS: ANION GAP 6 (5-19); BLOOD UREA NITROGEN 23 mg/dL (7-20); CALCIUM 8.8 mg/dL (8.4-10.2); CARBON DIOXIDE 33 mmol/L (22-30); CHLORIDE 102 mmol/L (98-107); GLUCOSE 114 mg/dL (75-110); POTASSIUM 4.1 mmol/L (3.6-5.0); SODIUM 140.8 mmol/L (137-145)
[2018-09-26 14:54] LABS: FREE T4 (FREE THYROXINE) 1.99 ng/dL (0.78-2.19)
[2018-09-26 15:08] LABS: THYROID STIMULATING HORMONE 0.6 uIU/mL (0.47-4.68)
== END ==
LOC: OD 13:13
PROVIDERS: ATTEND Physician Assistant Medical
DX: N18.3 Chronic kidney disease, stage 3 (moderate) (principal); I50.9 Heart failure, unspecified; E83.42 Hypomagnesemia; E03.8 Other specified hypothyroidism
CPT/HCPCS: 36415; 80048; 83735; 84439; 84443

== ENCOUNTER → 2018-10-09 | Outpatient (CLI) | payer MEDICARE, OTHER ==
[2018-10-09 11:00] LABS: ANION GAP 11 (5-19); BLOOD UREA NITROGEN 20 mg/dL (7-20); CALCIUM 9.3 mg/dL (8.4-10.2); CARBON DIOXIDE 29 mmol/L (22-30); CHLORIDE 101 mmol/L (98-107); GLUCOSE 93 mg/dL (75-110); POTASSIUM 4.1 mmol/L (3.6-5.0); SODIUM 140.5 mmol/L (137-145)
== END ==
LOC: OD 09:57
PROVIDERS: ATTEND Physician Assistant Medical
DX: N18.3 Chronic kidney disease, stage 3 (moderate) (principal)
CPT/HCPCS: 36415; 80048

== ENCOUNTER → 2018-10-10 | Outpatient (CLI) | payer MEDICARE, OTHER ==
--- NOTE | 2018-10-10 14:37 | RADIOLOGY REPORT (SQ) ---
EXAM DESCRIPTION: VENOUS UNILATERAL LOWER COMPLETED DATE/TIME: 10/10/2018 2:28 pm REASON FOR STUDY: LLE SWELLING R22.42 LOCALIZED SWELLING, MASS AND LUMP, LEFT LOWER LIMB R20.8 OTH ER DISTURBANCES OF SKIN SENSATION COMPARISON: 12/06/2016 TECHNIQUE: Dynamic and static sanchez scale and color images acquired of the left leg venous system. Se lected spectral images acquired with additional compression and augmentation maneuvers. The contralat eral common femoral vein and saphenofemoral junction were also imaged. Images stored on PACS. LIMITATIONS: None. FINDINGS: COMMON FEMORAL: Normal phasicity, compression and augmentation. No visualized echogenic ma terial on sanchez scale. No defects on color images. FEMORAL: Normal compression and augmentation. No visualized echogenic material on sanchez scale. No defe cts on color images. POPLITEAL: Normal compression, augmentation. No visualized echogenic material on sanchez scale. No defec ts on color images. CALF VESSELS: Normal compression, augmentation. No visualized echogenic material on sanchez scale. No de fects on color images. GSV and SSV: Normal compression, augmentation. No visualized echogenic material on sanchez scale. No def ects on color images. ANY DEEP VENOUS INSUFFICIENCY: Not evaluated. ANY EVIDENCE OF POPLITEAL CYST: No. OTHER: There is soft tissue edema. CONTRALATERAL COMMON FEMORAL VEIN AND SAPHENOFEMORAL JUNCTION: Normal phasicity, compression and augmentation. No visualized echogenic material on sanchez scale. No de fects on color images. IMPRESSION: NO EVIDENCE DVT OR SVT IN THE LEFT LEG. TECHNICAL DOCUMENTATION: JOB ID: [id number] [employer]- All Rights Reserved Reading location - IP/workstation name: [email or web address]
== END ==
LOC: SP 12:55
PROVIDERS: ATTEND Physician Assistant Medical
DX: R22.42 Localized swelling, mass and lump, left lower limb (principal); R20.8 Other disturbances of skin sensation
CPT/HCPCS: 93971

== ENCOUNTER → 2018-10-14 | Outpatient (CLI) | payer MEDICARE, OTHER ==
[2018-10-14 18:47] LABS: FREE T4 (FREE THYROXINE) 2.04 ng/dL (0.78-2.19)
[2018-10-14 19:01] LABS: THYROID STIMULATING HORMONE 0.43 uIU/mL (0.47-4.68)
== END ==
LOC: OD 17:07
PROVIDERS: ATTEND Physician Assistant
DX: E03.8 Other specified hypothyroidism (principal)
CPT/HCPCS: 36415; 84439; 84443

== ENCOUNTER → 2018-10-17 | Outpatient (CLI) | payer MEDICARE, OTHER ==
[2018-10-17 11:25] LABS: ANION GAP 8 (5-19); BLOOD UREA NITROGEN 28 mg/dL (7-20); CALCIUM 8.9 mg/dL (8.4-10.2); CARBON DIOXIDE 29 mmol/L (22-30); CHLORIDE 104 mmol/L (98-107); GLUCOSE 97 mg/dL (75-110); POTASSIUM 4.3 mmol/L (3.6-5.0); SODIUM 140.6 mmol/L (137-145)
== END ==
LOC: OD 09:45
PROVIDERS: ATTEND Physician Assistant Medical
DX: I12.9 Hypertensive chronic kidney disease with stage 1 through stage 4 chronic kidney disease, or unspecified chronic kidney disease (principal); N18.3 Chronic kidney disease, stage 3 (moderate); R60.9 Edema, unspecified
CPT/HCPCS: 36415; 80048

== ENCOUNTER 2018-11-04 16:14 | Emergency (ER) | payer MEDICARE, OTHER ==
--- NOTE | 2018-11-04 16:47 | RADIOLOGY REPORT (SQ) ---
EXAM DESCRIPTION: WRIST RIGHT 2 VIEWS COMPLETED DATE/TIME: 11/04/2018 4:38 pm REASON FOR STUDY: Fall with deformity of the right wrist. COMPARISON: None. NUMBER OF VIEWS: Three views. TECHNIQUE: AP, lateral, and oblique radiographic images acquired of the right wrist. LIMITATIONS: None. FINDINGS: MINERALIZATION: Normal. BONES: There is a comminuted fracture of the distal radius. Possible old injury of the distal ulna. No dislocation. SOFT TISSUES: No soft tissue swelling. No foreign body. OTHER: No other significant finding. IMPRESSION: Comminuted displaced fracture of the distal radius. TECHNICAL DOCUMENTATION: JOB ID: [id number] [employer]- All Rights Reserved Reading location - IP/workstation name: [email or web address]
[2018-11-04] MEDS ORDERED: FENTANYL CITRATE INJ/PF 100 MCG/2 ML AMPUL IM ONE (16:54)
--- NOTE | 2018-11-04 18:02 | ER Document Report ---
ED General - General Chief Complaint: Fall Stated Complaint: RIGHT WRIST PAIN Time Seen by Provider: 11/04/18 16:31 Primary Care Provider: DWAYNE SPENCER MD [ACTIVE STAFF] - Follow up tomorrow (call for appointent tomorrow. ) QUENTIN WORTHINGTON PA-C [Primary Care Provider] - Follow up as needed Notes: Patient is a 63-year-old female that presents to the emergency department for chief complaint of right wrist pain after fall. Patient reports that she had lost her footing after standing up in the bathroom, she does have a history of chronic left lower extremity weakness from a prior stroke, she states that she fell backwards onto her extended right hand and felt significant pain after her fall. She is not sure if she hit her head she denies having any neck pain at this time. She denies any numbness, weakness or tingling. She is on Arixtra. She denies any loss of consciousness, and denies any new neurological deficits or weakness. She currently rates her pain as a 10 out of 10 describes it as a throbbing aching sensation in her right wrist. She is right-handed. Past Medical History: CVA, with residual left-sided weakness Past Surgical History: Denies recent or pertinent surgical history Social History: Denies tobacco, alcohol or drug use. Family History: Reviewed and noncontributory for presenting illness Allergies: Reviewed, see documented allergy list. REVIEW OF SYSTEMS: Other than noted above, the 12 point review of systems was reviewed with the patient and were negative, all pertinent findings are included in the HPI. PHYSICAL EXAMINATION: Vital signs reviewed, nursing noted reviewed. GENERAL: Patient appears uncomfortable exam, but not in significant distress. HEAD: Atraumatic, normocephalic. EYES: Eyes appear normal, extraocular movements intact, sclera anicteric, conjunctiva are normal. ENT: nares patent, oropharynx clear without exudates. Moist mucous membranes. NECK: Normal range of motion, supple without lymphadenopathy, no midline tenderness LUNGS: Breath sounds clear to auscultation bilaterally and equal. No wheezes rales or rhonchi. HEART: Regular rate and rhythm without murmurs ABDOMEN: Soft, nontender, normoactive bowel sounds. No rebound, guarding, or rigidity. No masses appreciated. EXTREMITIES: The right wrist is mildly deformed, and tender to palpate, mild edema noted, radial and ulnar pulses are palpable and +2/4, cap refill is less than 3 seconds in all digits of the right hand, muscular motor strength is intact, sensation intact in all digits as well. Tendon function appears to be intact. The rest the patient's extremity exam is grossly unremarkable, there is no tenderness to the right elbow or shoulder. NEUROLOGICAL: No focal neurological deficits. Moves all extremities spontaneously, patient's muscular motor strength is +4/5 in the left upper and left lower extremities which is chronic for this patient, muscular motor strength is +5/5 in her right upper and lower extremity. PSYCH: Normal mood, normal affect. SKIN: Warm, Dry, normal turgor, no rashes or lesions noted on exposed skin TRAVEL OUTSIDE OF THE [place] IN LAST 30 DAYS: No - Related Data Allergies/Adverse Reactions: pregabalin [From Lyrica] Allergy (Unknown, Verified 07/17/18 07:41) trazodone HCl [From Desyrel] Allergy (Unknown, Verified 07/17/18 07:41) cephalexin monohydrate [From Keflex] Adverse Reaction (Verified 07/17/18 07:41) nausea, vomiting erythromycin base [Erythromycin Base] Adverse Reaction (Verified 07/17/18 07:41) nausea, vomiting Past Medical History - Social History Smoking Status: Never Smoker Chew tobacco use (# tins/day): No Frequency of alcohol use: None Drug Abuse: None Family History: Hypertension Patient has suicidal ideation: No Patient has homicidal ideation: No - Past Medical History Cardiac Medical History: Reports: Hx Congestive Heart Failure, Hx Hypercholesterolemia, Hx Hypertension Denies: Hx Coronary Artery Disease - HIGH CHOLESTEROL Pulmonary Medical History: Reports: Hx Asthma, Hx Bronchitis, Hx COPD, Hx Pneumonia Denies: Hx Tuberculosis Neurological Medical History: Reports: Hx Cerebrovascular Accident - 7 YEARS AGO HAS "MEMORY ISSUES" "STROKE X5. Denies: Hx Seizures Endocrine Medical History: Reports: Hx Hypothyroidism. Denies: Hx Diabetes Mellitus Type 1, Hx Diabetes Mellitus Type 2, Hx Hyperthyroidism Renal/ Medical History: Reports: Hx Renal Insufficiency. Denies: Hx End Stage Renal Disease, Hx Peritoneal Dialysis GI Medical History: Denies: Hx Cirrhosis, Hx Hepatitis Musculoskeletal Medical History: Denies Hx Arthritis, Denies Hx Fibromyalgia, Denies Hx Gout Skin Medical History: Denies Hx Eczema, Denies Hx Psoriasis Psychiatric Medical History: Reports: Hx Depression Infectious Medical History: Denies: Hx Hepatitis, Hx HIV Past Surgical History: Reports: Hx Dilation and Curettage, Hx Hysterectomy, Hx Tubal Ligation - Immunizations Hx Diphtheria, Pertussis, Tetanus Vaccination: Yes Physical Exam - Vital signs Vitals: Temp 97.9 F 11/04/18 16:48 Course - Re-evaluation Re-evalutation: Patient seen and examined vital signs reviewed. Laboratory data and/or imaging were ordered as appropriate for the patient's presenting symptoms and complaint, with consideration of any critical or life threatening conditions that may be associated with their obtained history and exam as noted above. Patient was treated with IM fentanyl, and p.o. oxycodone for her pain Results were reviewed when available and demonstrated distal radius fracture, comminuted with intra-articular extension, and impacted, CT imaging of the head and cervical spine were negative. The patient was re-evaluated and was stable and improved, patient was immobilized with a sugar tong splint of the right upper extremity in sling placement Evaluation was most consistent with fall, right distal radius fracture, will have the patient follow-up with orthopedics, given a prescription for oxycodone to take for pain. Results were discussed with the patient at this point, after careful consideration I feel that that patient can be discharged from the emergency department, the patient was educated treatments and reasons to return to the emergency department based on their presumed diagnosis as noted above, they were advised to followup with a primary care physician in 2-3 days. Patient was agreeable to plan of care. *Note is created using voice recognition software and may contain spelling, syntax or grammatical errors. Wrist X-Ray 11/04/18 00:00 IMPRESSION: Comminuted displaced fracture of the distal radius. Cervical Spine CT 11/04/18 16:54 IMPRESSION: Degenerative disc disease, spondylosis, scoliosis. No acute findings. Head CT 11/04/18 16:54 IMPRESSION: Mild involutional changes with chronic microvascular ischemia. No acute intracranial imaging findings. EVIDENCE OF ACUTE STROKE: NO. - Vital Signs Vital signs: Temp Pulse Resp BP Pulse Ox 98.5 F 81 15 120/71 95 11/04/18 19:42 11/04/18 16:51 11/04/18 19:42 11/04/18 19:42 11/04/18 19:42 Procedures - Immobilization Right Wrist Pre-Proc Neuro Vasc Exam: Normal Immobilizer type: Sugar tong Performed by: PCT Post-Proc Neuro Vasc Exam: Normal Alignment checked and good: Yes Discharge - Discharge Clinical Impression: Fracture of right distal radius Qualifiers: Encounter type: initial encounter Fracture type: closed Fracture morphology: unspecified fracture morphology Qualified Code(s): S52.501A - Unspecified fracture of the lower end of right radius, initial encounter for closed fracture Fall Qualifiers: Encounter type: initial encounter Qualified Code(s): W19.XXXA - Unspecified fall, initial encounter Condition: Stable Disposition: HOME, SELF-CARE Instructions: Fractured Radius ([facility]) Additional Instructions: Please keep your splint in place, try not to get it wet, and please follow-up with orthopedic surgery. If you develop numbness or weakness in your fingers, or severe pain, that is not improving at all with medication, do not hesitate to return to the emergency department to be reevaluated. Prescriptions: Oxycodone HCl/Acetaminophen [Percocet 5-325 mg Tablet] 1 tab PO Q8H PRN #20 tab PRN Reason: wrist pain Referrals: QUENTIN WORTHINGTON PA-C [Primary Care Provider] - Follow up as needed DWAYNE SPENCER MD [ACTIVE STAFF] - Follow up tomorrow (call for appointent tomorrow. )
[2018-11-04] MEDS ORDERED: OXYCODONE HCL IR 5 MG TABLET PO ONE (18:04)
--- NOTE | 2018-11-04 18:50 | RADIOLOGY REPORT (SQ) ---
EXAM DESCRIPTION: CT HEAD WITHOUT COMPLETED DATE/TIME: 11/04/2018 6:35 pm REASON FOR STUDY: fall, head injury on arixtra COMPARISON: 12/25/2016 TECHNIQUE: Axial images acquired through the brain without intravenous contrast. Images reviewed wi th bone, brain and subdural windows. Additional sagittal and coronal reconstructions were generated. Images stored on PACS. All CT scanners at this facility use dose modulation, iterative reconstruction, and/or weight based d osing when appropriate to reduce radiation dose to as low as reasonably achievable (ALARA). [facility]: Dose Right [facility]: CareDose [facility]: Dose Right [facility]: Teradose 4D [facility]: [employer] RADIATION DOSE: CT Rad equipment meets quality standard of care and radiation dose reduction techniq ues were employed. CTDIvol: 53.2 mGy. DLP: 1097 mGy-cm. mGy. LIMITATIONS: None. FINDINGS: VENTRICLES: Prominent ventricles secondary to involutional atrophy. CEREBRUM: No masses. No hemorrhage. No midline shift. No evidence for acute infarction. Few scatte red areas of low density in the white matter most likely chronic small vessel ischemic changes. CEREBELLUM: No masses. No hemorrhage. No alteration of density. No evidence for acute infarction. EXTRAAXIAL SPACES: No fluid collections. No masses. ORBITS AND GLOBE: No intra- or extraconal masses. Normal contour of globe without masses. CALVARIUM: No fracture. PARANASAL SINUSES: No fluid or mucosal thickening. SOFT TISSUES: No mass or hematoma. OTHER: None. IMPRESSION: Mild involutional changes with chronic microvascular ischemia. No acute intracranial im aging findings. EVIDENCE OF ACUTE STROKE: NO. COMMENT: Quality ID # [id number]: Final reports with documentation of one or more dose reduction techniques (e.g., Automated exposure control, adjustment of the mA and/or kV according to patient size, use of iterative reconstruction technique) TECHNICAL DOCUMENTATION: JOB ID: [id number] [employer]- All Rights Reserved Reading location - IP/workstation name: [email or web address]
--- NOTE | 2018-11-04 18:52 | RADIOLOGY REPORT (SQ) ---
EXAM DESCRIPTION: CT CERVICAL SPINE WITHOUT COMPLETED DATE/TIME: 11/04/2018 6:35 pm REASON FOR STUDY: fall COMPARISON: None. TECHNIQUE: Axial images acquired through the cervical spine without intravenous contrast. Images re viewed with lung, soft tissue and bone windows. Reconstructed coronal and sagittal MPR images review ed. Images stored on PACS. All CT scanners at this facility use dose modulation, iterative reconstruction, and/or weight based d osing when appropriate to reduce radiation dose to as low as reasonably achievable (ALARA). [facility]: Dose Right [facility]: CareDose [facility]: Dose Right [facility]: Teradose 4D [facility]: [employer] RADIATION DOSE: CT Rad equipment meets quality standard of care and radiation dose reduction techniq ues were employed. CTDIvol: 24.6 mGy. DLP: 524 mGy-cm. mGy. LIMITATIONS: None. FINDINGS: ALIGNMENT: Levoscoliosis. MINERALIZATION: Normal. VERTEBRAL BODIES: No fractures or dislocation. DISCS: Disc spaces are narrowed from C4-C7 with small marginal osteophytes. FACETS, LATERAL MASSES, POSTERIOR ELEMENTS: No fractures. No dislocation. No acute findings. HARDWARE: None in the spine. VISUALIZED RIBS: No fractures. LUNG APICES AND SOFT TISSUES: No significant or acute findings. OTHER: No other significant finding. IMPRESSION: Degenerative disc disease, spondylosis, scoliosis. No acute findings. TECHNICAL DOCUMENTATION: JOB ID: [id number] Quality ID # [id number]: Final reports with documentation of one or more dose reduction techniques (e.g., Au tomated exposure control, adjustment of the mA and/or kV according to patient size, use of iterative reconstruction technique) 2010 [employer]- All Rights Reserved Reading location - IP/workstation name: [email or web address]
[2018-11-04 19:53] VITALS: BP 120/71
== END 2018-11-04 19:53 | disposition home or self-care (01) ==
LOC: ER 16:14
DX: S52.591A Other fractures of lower end of right radius, initial encounter for closed fracture (principal); M25.531 Pain in right wrist; W18.39XA Other fall on same level, initial encounter; M47.9 Spondylosis, unspecified; M50.30 Other cervical disc degeneration, unspecified cervical region; M41.9 Scoliosis, unspecified; I67.82 Cerebral ischemia; I69.344 Monoplegia of lower limb following cerebral infarction affecting left non-dominant side; I10 Essential (primary) hypertension; Z79.01 Long term (current) use of anticoagulants; J44.9 Chronic obstructive pulmonary disease, unspecified; Z88.6 Allergy status to analgesic agent; Z88.8 Allergy status to other drugs, medicaments and biological substances
CPT/HCPCS: 99284; 96372; 73100; 70450; 72125; 29125; J3010; A9270

== ENCOUNTER 2018-11-10 05:40 | Day surgery (SDC) | payer MEDICARE, OTHER ==
[2018-11-10 06:14] LABS: APPEARANCE,URINE CLOUDY; BILIRUBIN,URINE NEGATIVE (NEGATIVE); COLOR,URINE YELLOW; GLUCOSE, URINE NEGATIVE (NEGATIVE); KETONES,URINE NEGATIVE (NEGATIVE); LEUKOCYTE ESTERASE,URINE NEGATIVE (NEGATIVE); NITRITE,URINE NEGATIVE (NEGATIVE); PROTEIN,URINE NEGATIVE (NEGATIVE); UROBILINOGEN,URINE NEGATIVE mg/dL (<2.0)
[2018-11-10 06:29] LABS: HEMATOCRIT 34.7 % (36.0-47.0); MEAN CORPUSCULAR HEMOGLOBIN 30.1 pg (27.0-33.4); MEAN CORPUSCULAR HGB CONC 34.5 g/dL (32.0-36.0); MEAN CORPUSCULAR VOLUME 87 fl (80-97); PLATELET COUNT 316 10^3/uL (150-450); RED BLOOD COUNT 3.98 10^6/uL (3.72-5.28); RED CELL DISTRIBUTION WIDTH 13.9 % (11.5-14.0); WHITE BLOOD COUNT 6.4 10^3/uL (4.0-10.5)
[2018-11-10] MEDS ORDERED: CEFAZOLIN 2 GM/D5W RTU 2 GM/50 ML RTUPB IV ONE (06:29)
[2018-11-10 06:34] LABS: INTERNATIONAL RATION (INR) 0.98; PARTIAL THROMBOPLASTIN TIME 29.7 SEC (23.5-35.8); PROTHROMBIN TIME 13.4 SEC (11.4-15.4)
--- NOTE | 2018-11-10 06:47 | RADIOLOGY REPORT (SQ) ---
EXAM DESCRIPTION: XR CHEST 1 VIEW COMPLETED DATE/TME: 11/10/2018 00:00 CLINICAL HISTORY: 63 years, Female, surgery COMPARISON: 07/27/2018 chest NUMBER OF VIEWS: 1 TECHNIQUE: Portable chest LIMITATIONS: None. FINDINGS: Heart size normal. Lungs clear. No pneumothorax IMPRESSION: No acute cardiopulmonary process copyright 2010 [employer] All Rights Reserved
[2018-11-10 06:48] LABS: ANION GAP 11 (5-19); BLOOD UREA NITROGEN 54 mg/dL (7-20); CALCIUM 9.7 mg/dL (8.4-10.2); CARBON DIOXIDE 34 mmol/L (22-30); CHLORIDE 95 mmol/L (98-107); GLUCOSE 119 mg/dL (75-110); SODIUM 139.7 mmol/L (137-145)
[2018-11-10] MEDS ORDERED: MIDAZOLAM 2 MG/2 ML INJ ONE (07:12)
[2018-11-10] MEDS ORDERED: FENTANYL CITRATE INJ/PF 100 MCG/2 ML AMPUL ONE (07:12)
[2018-11-10] MEDS ORDERED: PROPOFOL INJ 200 MG/20 ML VIAL IV ONE (07:13)
[2018-11-10] MEDS ORDERED: HYDROMORPHONE HCL INJ/PF 2 MG/ML AMPULE ONE ×2 (07:13→09:32)
[2018-11-10] MEDS ORDERED: POTASSIUM CHLORIDE 10 MEQ CAPSULE.ER PO ONE (07:13)
[2018-11-10] MEDS ORDERED: ACETAMINOPHEN 1,000 MG/100 ML RTUPB IV ONE (07:13)
[2018-11-10] MEDS ORDERED: BUPIVACAINE HCL 0.5%-EPI 1:200000 INJ/PF 30 ML VIAL ONE (07:22)
--- NOTE | 2018-11-10 07:22 | EKG REPORT ---
SEVERITY:- ABNORMAL ECG - ACCELERATED JUNCTIONAL RHYTHM PROBABLE INFERIOR INFARCT, AGE INDETERMINATE CONSIDER POSTERIOR WALL INVOLVEMENT PROLONGED QT INTERVAL : Confirmed by: Earle Feldman MD 10-Nov-2018 07:22:10
[2018-11-10 07:25] LABS: POTASSIUM 2.9 mmol/L (3.6-5.0)
[2018-11-10] MEDS ORDERED: POTASSI CL 20 MEQ/50 ML RIDER 20 MEQ/50 ML RTUPB IV ONE (07:46)
[2018-11-10] MEDS ORDERED: ALBUTEROL SULFATE HFA (90 MCG/PUFF) 200 PUFF/8.5 GM MDI IH ONE (08:01)
[2018-11-10] MEDS ORDERED: FENTANYL CITRATE INJ/PF 100 MCG/2 ML AMPUL IV PRN ×3 (08:18)
[2018-11-10] MEDS ORDERED: ONDANSETRON HCL INJ/PF 4 MG/2 ML SDV IV PRN (08:18)
[2018-11-10] MEDS ORDERED: PROMETHAZINE HCL INJ 25 MG/1 ML VIAL IV PRN ×2 (08:18)
[2018-11-10] MEDS ORDERED: MEPERIDINE HCL/PF INJ 25 MG/1 ML DISP.SYRIN IV PRN (08:18)
[2018-11-10] MEDS ORDERED: OXYCODONE-ACETAMINOPHEN 5-325 MG TABLET PO PRN ×3 (08:18→10:16)
[2018-11-10] MEDS ORDERED: DIPHENHYDRAMINE HCL 50 MG/ML VIAL IV PRN (08:18)
--- NOTE | 2018-11-10 08:39 | Discharge Summary ---
Discharge Summary (SDC) - Discharge Final Diagnosis: Right distal radius fracture Date of Surgery: 11/10/18 Discharge Date: 11/10/18 Condition: Good Treatment or Instructions: Elevate right upper extremity Prescriptions: Oxycodone HCl/Acetaminophen [Percocet 5-325 mg Tablet] 1 tab PO Q6 PRN #40 tablet PRN Reason: Pain Scale Of 2 Referrals: MARK HAILE MD [Primary Care Provider] - Discharge Diet: As Tolerated, Regular Respiratory Treatments at Home: Deep Breathing/Coughing Discharge Activity: Balance Activity w/Rest, No Driving, No tub bath Home Care Assistance: None Needed Report the Following to Your Physician Immediately: Shortness of Breath, Fever over 101 Degrees, Drainage-Foul Smelling
--- NOTE | 2018-11-10 08:55 | Operative Report ---
Operative Report DATE OF SURGERY: 11/10/18 PREOPERATIVE DIAGNOSIS: Right distal radius fracture, intra-articular, comminut ed OPERATION: Open reduction internal fixation right distal radius fracture SURGEON: DWAYNE SPENCER ANESTHESIA: GA ESTIMATED BLOOD LOSS: Minimal PROCEDURE: With the patient supine on the operative table the right upper extremities prepped and draped in sterile fashion. Limb is elevated for exsanguination tourniquet inflated 280 torr. Under fluoroscopic guidance a closed reduction of distal radius fracture was performed. A pin was placed through the radial styloid to maintain the reduction. A standard volar approach to the distal radius is taken. The volar surface of the fracture is visualized. A Weaver medium short volar distal radius plate is applied and secured to the distal fragments with 4 screws. Its then reapproximated to the metadiaphysis to further help reduce the volar inclination of the fracture. The fracture reduction hardware placement are check fluoroscopically and felt to be adequate. The tourniquet is deflated. Hemostasis obtained with bipolar cautery. Wound was then closed in layers interrupted Vicryl followed by nylon a sterile com pressive dressing was applied and the patient's return to the PACU in satisfactory condition.
[2018-11-10] MEDS: FENTANYL CITRATE INJ/PF 100 MCG/2 ML AMPUL ONE ×2 (09:11→09:20)
[2018-11-10] MEDS ORDERED: ONDANSETRON HCL INJ/PF 4 MG/2 ML SDV ONE ×2 (09:18→14:11)
[2018-11-10] MEDS ORDERED: PROMETHAZINE HCL INJ 25 MG/1 ML VIAL ONE (09:18)
[2018-11-10] MEDS ORDERED: OXYCODONE-ACETAMINOPHEN 5-325 MG TABLET ONE (10:18)
--- NOTE | 2018-11-10 10:36 | RADIOLOGY REPORT (SQ) ---
EXAM DESCRIPTION: NO CHG FLUORO; WRIST RIGHT 3 VIEWS COMPLETED DATE/TIME: 11/10/2018 9:20 am; 11/10/2018 9:21 am REASON FOR STUDY: ORIF RT WRIST ASST WITH FLUORO IN OR COMPARISON: 11/04/2018 FLUOROSCOPY TIME: 36 seconds Thigh Images saved to PACS LIMITATIONS: None. PROCEDURE: ORIF right radial fracture FINDINGS: Image some fluoro document placement of a volar compression plate with multiple screws. IMPRESSION: ORIF. Refer to operative note for further information. COMMENT: PQRS 6045F: Fluoroscopy time of the procedure is documented in the report. TECHNICAL DOCUMENTATION: JOB ID: [id number] [employer]- All Rights Reserved Reading location - IP/workstation name: [email or web address]
--- NOTE | 2018-11-10 10:36 | RADIOLOGY REPORT (SQ) ---
EXAM DESCRIPTION: NO CHG FLUORO; WRIST RIGHT 3 VIEWS COMPLETED DATE/TIME: 11/10/2018 9:20 am; 11/10/2018 9:21 am REASON FOR STUDY: ORIF RT WRIST ASST WITH FLUORO IN OR COMPARISON: 11/04/2018 FLUOROSCOPY TIME: 36 seconds Thigh Images saved to PACS LIMITATIONS: None. PROCEDURE: ORIF right radial fracture FINDINGS: Image some fluoro document placement of a volar compression plate with multiple screws. IMPRESSION: ORIF. Refer to operative note for further information. COMMENT: PQRS 6045F: Fluoroscopy time of the procedure is documented in the report. TECHNICAL DOCUMENTATION: JOB ID: [id number] [employer]- All Rights Reserved Reading location - IP/workstation name: [email or web address]
[2018-11-10 13:17] VITALS: BP 128/67
[2018-11-10] MEDS ORDERED: KETOROLAC TROMETHAMINE 60 MG/2 ML SDV ONE (14:11)
[2018-11-10] MEDS ORDERED: DEXAMETHASONE SOD PHOSPHATE INJ 4 MG/1 ML VIAL ONE (14:11)
[2018-11-10] MEDS ORDERED: SUCCINYLCHOLINE CHLORIDE INJ 200 MG/10 ML VIAL ONE (14:11)
[2018-11-10] MEDS ORDERED: LIDOCAINE 2% INJ-PF (20 MG/ML) 2 ML AMPUL ONE (14:11)
[2018-11-10] MEDS ORDERED: METOCLOPRAMIDE HCL INJ/PF 10 MG/2 ML SDV ONE (14:11)
== END 2018-11-10 11:30 | disposition home or self-care (01) ==
LOC: OROUT 05:40
PROVIDERS: ATTEND Orthopaedic Surgery
PROC: 0PSH04Z Reposition Right Radius with Internal Fixation Device, Open Approach (ICD-10-PCS; principal; 2018-11-10 07:30)
DX: S52.121A Displaced fracture of head of right radius, initial encounter for closed fracture (principal); Z79.01 Long term (current) use of anticoagulants; S52.571A Other intraarticular fracture of lower end of right radius, initial encounter for closed fracture; I10 Essential (primary) hypertension; J44.9 Chronic obstructive pulmonary disease, unspecified; Z86.73 Personal history of transient ischemic attack (TIA), and cerebral infarction without residual deficits; Z79.899 Other long term (current) drug therapy
CPT/HCPCS: 01830; 36415; 71045; 80048; 81001; 84132; 85027; 85610; 85730; 93005; 93010; J0131; J0330; J0690; J1100; J1170; J1885; J2250; J2405; J2550; J2704; J2765; J3010; J3480; J3490

== ENCOUNTER → 2018-12-30 | Outpatient (CLI) | payer MEDICARE, OTHER ==
[2018-12-30 14:34] LABS: HEMATOCRIT 36.3 % (36.0-47.0); HEMOGLOBIN 12.3 g/dL (12.0-15.5); MEAN CORPUSCULAR HGB CONC 33.8 g/dL (32.0-36.0); MEAN CORPUSCULAR VOLUME 86 fl (80-97); PLATELET COUNT 243 10^3/uL (150-450); RED BLOOD COUNT 4.22 10^6/uL (3.72-5.28); RED CELL DISTRIBUTION WIDTH 13.5 % (11.5-14.0); WHITE BLOOD COUNT 7.6 10^3/uL (4.0-10.5)
[2018-12-30 14:52] LABS: ALANINE AMINOTRANSFERASE 22 U/L (9-52); ALKALINE PHOSPHATASE 109 U/L (38-126); ANION GAP 13 (5-19); ASPARTATE AMINO TRANSFERASE 21 U/L (14-36); BILIRUBIN,DIRECT 0.4 mg/dL (0.0-0.4); BILIRUBIN,TOTAL 0.4 mg/dL (0.2-1.3); BLOOD UREA NITROGEN 56 mg/dL (7-20); CALCIUM 9.8 mg/dL (8.4-10.2); CARBON DIOXIDE 29 mmol/L (22-30); CHLORIDE 98 mmol/L (98-107); GLUCOSE 98 mg/dL (75-110); PHOSPHORUS 4.5 mg/dL (2.5-4.5); POTASSIUM 3.5 mmol/L (3.6-5.0); SODIUM 140.3 mmol/L (137-145); TOTAL PROTEIN 7.2 g/dL (6.3-8.2)
[2018-12-30 15:05] LABS: FREE T4 (FREE THYROXINE) 2.81 ng/dL (0.78-2.19)
[2018-12-30 15:19] LABS: THYROID STIMULATING HORMONE 0.07 uIU/mL (0.47-4.68)
[2018-12-31 14:52] LABS: UR PRO/CREAT RATIO RESULT 0.4 mg/mg (0.0-0.2); URINE CREATININE 32.6 mg/dL (15-278); URINE PROTEIN 14.2 mg/dL (<12)
== END ==
LOC: OD 13:55
PROVIDERS: ATTEND Internal Medicine
DX: I12.9 Hypertensive chronic kidney disease with stage 1 through stage 4 chronic kidney disease, or unspecified chronic kidney disease (principal); N18.3 Chronic kidney disease, stage 3 (moderate); D63.1 Anemia in chronic kidney disease; E03.8 Other specified hypothyroidism; R60.9 Edema, unspecified; E87.6 Hypokalemia
CPT/HCPCS: 36415; 80053; 82570; 83970; 84100; 84156; 84439; 84443; 85027

== ENCOUNTER 2019-03-08 22:40 | Inpatient (IN) | payer MEDICARE, OTHER ==
[2019-03-08 22:59] LABS: ABSOLUTE BASOPHILS # (AUTO) 0.1 10^3/uL (0.0-0.2); ABSOLUTE EOSINOPHILS # (AUTO) 0.2 10^3/uL (0.0-0.6); ABSOLUTE LYMPHOCYTES (AUTO) 1.8 10^3/uL (0.5-4.7); ABSOLUTE MONOCYTES (AUTO) 0.7 10^3/uL (0.1-1.4); ABSOLUTE NEUT (AUTO) 7.2 10^3/uL (1.7-8.2); BASOPHILS % (AUTO) 0.5 % (0-2); EOSINOPHILS % (AUTO) 2.1 % (0-6); HEMATOCRIT 30.5 % (36.0-47.0); HEMOGLOBIN 10.3 g/dL (12.0-15.5); LYMPHOCYTES % (AUTO) 18.2 % (13-45); MEAN CORPUSCULAR HEMOGLOBIN 29.8 pg (27.0-33.4); MEAN CORPUSCULAR HGB CONC 33.6 g/dL (32.0-36.0); MEAN CORPUSCULAR VOLUME 89 fl (80-97); MONOCYTES % (AUTO) 7.1 % (3-13); PLATELET COUNT 258 10^3/uL (150-450); RED BLOOD COUNT 3.44 10^6/uL (3.72-5.28); RED CELL DISTRIBUTION WIDTH 15.2 % (11.5-14.0); SEGMENTED NEUTROPHILS % (AUTO) 72.1 % (42-78); TOTAL CELLS COUNTED % (AUTO) 100 %
[2019-03-08] MEDS ORDERED: IPRATROPIUM/ALBUTEROL 0.5-2.5 MG/3 ML AMPUL NEB ONE (23:00)
[2019-03-08] MEDS ORDERED: METHYLPREDNISOLONE INJ 125 MG/2 ML SDV IV ONE (23:05)
[2019-03-08] MEDS ORDERED: NORMAL SALINE 1000 ML 1,000 ML IV ONE (23:05)
[2019-03-08 23:07] LABS: INTERNATIONAL RATION (INR) 0.95; PROTHROMBIN TIME 12.7 SEC (11.4-15.4); VENOUS BLOOD BASE EXCESS 1.5 mmol/L; VENOUS BLOOD HCO3 28.8 mmol/L (20-32); VENOUS BLOOD PCO2 59.5 mmHg (35-63); VENOUS BLOOD PH 7.3 (7.30-7.42)
[2019-03-08 23:13] LABS: BLOOD UREA NITROGEN 50 mg/dL (7-20); CALCIUM 8.9 mg/dL (8.4-10.2); CARBON DIOXIDE 27 mmol/L (22-30); CHLORIDE 101 mmol/L (98-107); GLUCOSE 151 mg/dL (75-110); POTASSIUM 4.1 mmol/L (3.6-5.0)
[2019-03-08 23:14] LABS: ALBUMIN 3.5 g/dL (3.5-5.0); ALKALINE PHOSPHATASE 103 U/L (38-126); ANION GAP 9 (5-19); ASPARTATE AMINO TRANSFERASE 22 U/L (14-36); BILIRUBIN,DIRECT 0.2 mg/dL (0.0-0.4); BILIRUBIN,TOTAL 0.2 mg/dL (0.2-1.3); TOTAL PROTEIN 6.3 g/dL (6.3-8.2)
[2019-03-08] MEDS: MAGNESIUM SULFATE/D5W 1 GM/100 ML RTUPB IV SCH (23:17)
[2019-03-09] MEDS ORDERED: IPRATROPIUM/ALBUTEROL 0.5-2.5 MG/3 ML AMPUL NEB ONE ×2 (00:05→09:38)
--- NOTE | 2019-03-09 00:19 | RADIOLOGY REPORT (SQ) ---
EXAM DESCRIPTION: XR CHEST 1 VIEW COMPLETED DATE/TME: 03/08/2019 22:46 CLINICAL HISTORY: 63 years, Female, cough COMPARISON: Multiple priors, most recent from 11/10/2018 NUMBER OF VIEWS: One TECHNIQUE: Single frontal view of the chest was obtained portably. LIMITATIONS: None. FINDINGS: Cardiac and mediastinal contours are stable. Patchy right basilar opacity is noted immediately. Lungs are otherwise clear. No pleural effusion or pneumothorax. IMPRESSION: Patchy right basilar opacity. Consider atelectasis or pneumonia to include aspiration. Recommend follow-up to clearing. copyright 2010 [email or web address]- All Rights Reserved
[2019-03-09] MEDS ORDERED: MEROPENEM 1 GM VIAL IV ONE (00:24)
[2019-03-09] MEDS ORDERED: VANCOMYCIN HCL INJ 1000 MG VIAL IV ONE ×2 (00:25→05:00)
[2019-03-09] MEDS ORDERED: LEVOFLOXACIN 750 MG/D5W RTU 750 MG/150 ML RTUPB IV ONE (00:25)
[2019-03-09] MEDS: MAGNESIUM SULFATE/D5W 1 GM/100 ML RTUPB IV SCH (01:10)
[2019-03-09 01:45] LABS: APPEARANCE,URINE CLEAR; BILIRUBIN,URINE NEGATIVE (NEGATIVE); COLOR,URINE YELLOW; GLUCOSE, URINE NEGATIVE (NEGATIVE); KETONES,URINE NEGATIVE (NEGATIVE); LEUKOCYTE ESTERASE,URINE NEGATIVE (NEGATIVE); NITRITE,URINE NEGATIVE (NEGATIVE); PROTEIN,URINE NEGATIVE (NEGATIVE); URINE SPECIFIC GRAVITY 1.011; UROBILINOGEN,URINE NEGATIVE mg/dL (<2.0)
--- NOTE | 2019-03-09 01:56 | ER Document Report ---
Entered by RIN PETIT SCRIBE 03/08/19 [id number] Acting as scribe for:WILLI PETERSEN DO ED Respiratory Problem - General Chief Complaint: Shortness Of Breath Stated Complaint: TROUBLE BREATHING Time Seen by Provider: 03/08/19 22:46 Primary Care Provider: MARK HAILE MD [Primary Care Provider] - Follow up as needed Information source: Patient Notes: 63-year-old female with CHF and COPD who presents to the emergency department today with complaints of shortness of breath which began earlier this evening. Patient complains of some wheezing as well. Patient states that she is not on home oxygen. Patient denies any fevers. TRAVEL OUTSIDE OF THE [place] IN LAST 30 DAYS: No - Related Data Allergies/Adverse Reactions: pregabalin [From Lyrica] Allergy (Unknown, Verified 03/08/19 22:52) trazodone HCl [From Desyrel] Allergy (Unknown, Verified 03/08/19 22:52) cephalexin monohydrate [From Keflex] Adverse Reaction (Verified 03/08/19 22:52) nausea, vomiting erythromycin base [Erythromycin Base] Adverse Reaction (Verified 03/08/19 22:52) nausea, vomiting gabapentin Adverse Reaction (Verified 03/08/19 22:52) Nausea guaifenesin [From Entex T] Adverse Reaction (Verified 03/08/19 22:52) Nausea pseudoephedrine [From Entex T] Adverse Reaction (Verified 03/08/19 22:52) Nausea Past Medical History - General Information source: Patient - Social History Smoking Status: Former Smoker Cigarette use (# per day): No Frequency of alcohol use: None Drug Abuse: None Lives with: Family Family History: Hypertension Patient has suicidal ideation: No Patient has homicidal ideation: No - Past Medical History Cardiac Medical History: Reports: Hx Congestive Heart Failure, Hx Hypercholesterolemia, Hx Hypertension Pulmonary Medical History: Reports: Hx Asthma, Hx Bronchitis, Hx COPD, Hx Pneumonia - 08/09 Neurological Medical History: Reports: Hx Cerebrovascular Accident - 7 YEARS AGO HAS "MEMORY ISSUES" "STROKE X4, last one 2005 Endocrine Medical History: Reports: Hx Hypothyroidism Renal/ Medical History: Reports: Hx Renal Insufficiency Musculoskeletal Medical History: Reports Hx Arthritis Psychiatric Medical History: Reports: Hx Depression Past Surgical History: Reports: Hx Dilation and Curettage, Hx Hysterectomy, Hx Tubal Ligation - Immunizations Hx Diphtheria, Pertussis, Tetanus Vaccination: Yes Review of Systems - Review of Systems Constitutional: denies: Fever EENT: No symptoms reported Cardiovascular: No symptoms reported Respiratory: See HPI, Short of breath, Wheezing Gastrointestinal: No symptoms reported Genitourinary: No symptoms reported Female Genitourinary: No symptoms reported Musculoskeletal: No symptoms reported Skin: No symptoms reported Hematologic/Lymphatic: No symptoms reported Neurological/Psychological: No symptoms reported -: Yes All other systems reviewed and negative Physical Exam - Vital signs Vitals: Resp Pulse Ox 20 93 03/08/19 22:50 03/08/19 22:50 Interpretation: Hypoxic, Tachypneic - Notes Notes: Physical Exam: General: Alert, obese, mild distress. HEENT: Normocephalic. Atraumatic. PERRL. Extraocular movements intact. Oropharynx clear. Dry mucous membranes. Neck: Supple. Non-tender. Respiratory: On oxygen via nasal cannula. mild respiratory distress. Wheezing at the apices bilaterally. Decreased air movement bilaterally. Cardiovascular: Regular rate and rhythm. Abdominal: Normal Inspection. Non-tender. No distension. Normal Bowel Sounds. Back: Non-tender. No deformity or step off. Extremities: Moves all four extremities. Upper extremities: Normal inspection. Normal ROM. Lower extremities: Non-pitting edema to bilateral lower extremities. Normal ROM. Neurological: Normal cognition. AAOx4. Normal speech. Psychological: Normal affect. Normal Mood. Skin: Warm. Dry. Normal color. Course - Re-evaluation Re-evalutation: 03/09/19 00:53 Improved respiratory status on BiPAP. Improved oxygenation. Patient resting comfortably. 03/09/19 01:55 Patient is a 63-year-old female who comes in complaining of difficulty breathing. She has had a cough. Initial oxygen saturation for EMS in the 70s. Patient does not wear oxygen at home. She has had pneumonia in the past. Blood work benign except for a slight JANET. Chest x-ray concerning for pneumonia. Patient given nebs, Solu-Medrol, magnesium for wheezing. Aeration improved but respiratory distress increase of patient placed on BiPAP. She is now comf ortable on BiPAP. Discussed with the hospitalist and will be admitted to the [facility]. Cultures have been sent and antibiotics initiated in the emergency department for pneumonia on chest x-ray. Patient is agreeable to this plan. Stable at the time of admission. - Vital Signs Vital signs: Temp Pulse Resp BP Pulse Ox 97.8 F 15 146/77 H 100 03/08/19 23:55 03/09/19 00:05 03/08/19 23:53 03/09/19 00:05 - Laboratory Result Diagrams: 03/08/19 22:45 03/08/19 22:45 Laboratory results interpreted by me: 03/08/19 03/08/19 22:45 22:45 RBC 3.44 L Hgb 10.3 L Hct 30.5 L RDW 15.2 H BUN 50 H Creatinine 1.83 H Est GFR ( Amer) 34 L Est GFR (Non-Af Amer) 28 L Glucose 151 H Critical Care Note - Critical Care Note Total time excluding time spent on procedures (mins): 45 - Evaluation and management of respiratory distress, initiation of BiPAP, multiple re- evaluations, initiation of sepsis protocol, treatment of pneumonia, coordination of admission, counseling patient Discharge - Discharge Clinical Impression: COPD exacerbation, Respiratory distress Pneumonia Qualifiers: Pneumonia type: due to unspecified organism Laterality: right Lung location: lower lobe of lung Qualified Code(s): J18.1 - Lobar pneumonia, unspecified organism Condition: Stable Disposition: ADMITTED INPATIENT Admitting Provider: Alexander (Hospitalist) Unit Admitted: IMCU Referrals: MARK HAILE MD [Primary Care Provider] - Follow up as needed Scribe Attestation: 03/09/19 01:56 I personally performed the services described in the documentation, reviewed and edited the documentation which was dictated to the scribe in my presence, and it accurately records my words and actions. I personally performed the services described in the documentation, reviewed and edited the documentation which was dictated to the scribe in my presence, and it accurately records my words and actions.
[2019-03-09] MEDS ORDERED: ACETAMINOPHEN 325 MG TABLET PO PRN ×2 (02:44→07:30)
[2019-03-09] MEDS ORDERED: NORMAL SALINE 1000 ML 1,000 ML IV PRN (02:44)
[2019-03-09] MEDS ORDERED: VANCOMYCIN HCL INJ 500 MG VIAL ONE (03:37)
[2019-03-09] MEDS ORDERED: VANCOMYCIN HCL INJ 1000 MG VIAL ONE (03:37)
[2019-03-09] MEDS ORDERED: VANCOMYCIN HCL 1,500 MG in DEXTROSE 5%-WATER 250 ML IV ONE (05:00)
[2019-03-09] MEDS ORDERED: VANCOMYCIN HCL INJ 1000 MG VIAL IV PRN (05:05)
--- NOTE | 2019-03-09 07:01 | EKG REPORT ---
SEVERITY:- ABNORMAL ECG - SINUS TACHYCARDIA PROBABLE INFERIOR INFARCT, AGE INDETERMINATE : Confirmed by: Priscilla Reddy 09-Mar-2019 07:01:00
--- NOTE | 2019-03-09 07:52 | PDOC H&P ---
History of Present Illness Admission Date/PCP: 03/09/19 02:15 MARK HAILE MD Patient complains of: Shortness of breath History of Present Illness: LEATHA ATKINS is a 63 year old female with history of multiple medical problems that will be mentioned below who presented to the emergency room with acute onset of dyspnea with associated cough and wheezing which have been significantly worse since yesterday morning. She admitted to chills but did not check her temperature has been feeling hot and cold. She admits to nausea without vomiting. She has been having mild orthopnea without significant paroxysmal nocturnal dyspnea. She denies any worsening lower extremity edema. Upon presentation to the emergency room her temperature was 97.8 respiratory rate was 15 with blood pressure of 118/51 with a heart rate of 111 respiratory rate of 20 and pulse oximetry of 100% though the patient was noted to be hypoxic with pulse oximetry in the 70s earlier apparently by EMS. She was placed on BiPAP. Portable chest x-ray revealed patchy right basal opacity concerning for pneumonia. Labs revealed anemia with no leukocytosis. BUN and creatinine were 50 and 1.83, blood glucose 151 and lactic acid 1.7 otherwise unremarkable BMP. The patient was given IV vancomycin, Levaquin and meropenem as well as IV Solu- Medrol and duo nebs as well as IV magnesium sulfate. She will be admitted to a medical monitor bed for further evaluation and management Past Medical History Cardiac Medical History: Reports: Congestive Heart Failure, Hyperlipidema, Hypertension Denies: Coronary Artery Disease - HIGH CHOLESTEROL, Myocardial Infarction Pulmonary Medical History: Reports: Asthma, Bronchitis, Chronic Obstructive Pulmonary Disease (COPD), Pneumonia - 08/09 Denies: Tuberculosis Neurological Medical History: Denies: Seizures Endocrine Medical History: Reports: Hypothyroidism Denies: Diabetes Mellitus Type 1, Diabetes Mellitus Type 2, Hyperthyroidism Renal/ Medical History: Denies: End Stage Renal Disease GI Medical History: Denies: Cirrhosis, Hepatitis Musculoskeltal Medical History: Reports: Arthritis Denies: Fibromyalgia, Gout Skin Medical History: Denies: Eczema, Psoriasis Psychiatric Medical History: Reports: Depression Hematology: Reports: Anemia Denies: Bleeding Tendencies Infectious Medical History: Denies: HIV Past Surgical History Past Surgical History: Reports: Hysterectomy, Tubal Ligation Social History Lives with: Family Smoking Status: Former Smoker Cigarettes Packs Per Day: 1 Frequency of Alcohol Use: None Hx Recreational Drug Use: No Drugs: None Hx Prescription Drug Abuse: No Family History Family History: Hypertension Parental Family History Reviewed: Yes Children Family History Reviewed: Yes Sibling(s) Family History Reviewed.: Yes Medication/Allergy Home Medications: Albuterol Sulfate [Proair HFA Inhalation Aerosol 8.5 gm MDI] 2 puff IH QIDP PRN 07/17/18 Atorvastatin Calcium [Lipitor 20 mg Tablet] 20 mg PO QPM 07/17/18 Duloxetine HCl [Cymbalta 20 mg Capsule.dr] 60 mg PO DAILY 07/17/18 Fondaparinux Sodium [Arixtra Inj 7.5 mg/0.6 ml Disp. Syrin] 7.5 mg SUBCUT DAILY 07/17/18 Levocetirizine Dihydrochloride [Xyzal] 5 mg PO DAILY 07/17/18 Levothyroxine Sodium 200 mcg PO QAM 07/17/18 Nystatin [Mycostatin Topical Powder 15 gm] 1 applic TP BIDP PRN 07/17/18 Pnv No.95/Ferrous Fum/Folic AC [ Multivitamin Tablet] 1 each PO DAILY 07/17/18 Ropinirole HCl [Requip 0.25 mg Tablet] 0.25 mg PO Q12 tablet 07/20/18 Diphenoxylate HCl/Atropine [Lomotil 2.5-0.025 mg Tablet] 1 each PO DAILYP PRN 07/27/18 Omeprazole 20 mg PO DAILY 07/27/18 Albuterol Sulfate [Ventolin 0.083% Neb 2.5 mg/3 mL Ampul] 2.5 mg NEB RTQ4HP PRN vial.neb 08/03/18 Azelastine HCl 1 spray NS BID 08/15/18 Cranberry Fruit Extract [Cranberry] 300 mg PO DAILY 08/15/18 Levothyroxine Sodium [Synthroid 0.05 mg Tablet] 25 mcg PO DAILY 08/15/18 Albuterol Sulfate [Ventolin 0.083% Neb 2.5 mg/3 mL Ampul] 1 dose PO Q6H PRN 11/06/18 Alprazolam [Xanax 0.5 mg Tablet] 0.5 mg PO QID 11/06/18 Cyclobenzaprine HCl [Flexeril 10 mg Tablet] 1 tab PO TID 11/06/18 Dicyclomine HCl [Bentyl 20 mg Tablet] 10 mg PO TID 11/06/18 Donepezil HCl 1 tab PO QHS 11/06/18 Eszopiclone [Lunesta] 1 tab PO QHS PRN 11/06/18 Fluoxetine HCl [Prozac 20 mg Capsule] 80 mg PO DAILY 11/06/18 Fluticasone Propionate [Flonase Nasal [place] 50 Mcg/[place] 16 gm] 1 spray NAREB BID 11/06/18 Fluticasone/Umeclidin/Vilanter [Trelegy 100-62.5-25 Mcg Ellipta 14 Dose/Dpi] 1 inh PO DAILY 11/06/18 Levocetirizine Dihydrochloride [Xyzal] 1 tab PO QHS 11/06/18 Magnesium Oxide 400 mg PO DAILY 11/06/18 Metolazone [Zaroxolyn 5 mg Tablet] 1 tab PO DAILY 11/06/18 Oxycodone HCl 1 tab PO QID 11/06/18 Primidone [Mysoline] 1 tab PO TID 11/06/18 Promethazine HCl [Phenergan 25 mg Tablet] 1 tab PO DAILY PRN 11/06/18 Ramipril [Altace 2.5 mg Capsule] 1 cap PO QHS 11/06/18 Torsemide [Demadex 20 mg Tablet] 1 tab PO QID 11/06/18 Oxycodone HCl/Acetaminophen [Percocet 5-325 mg Tablet] 1 tab PO Q6 PRN #40 tablet 11/10/18 Allergies/Adverse Reactions: pregabalin [From Lyrica] Allergy (Unknown, Verified 03/08/19 22:52) trazodone HCl [From Desyrel] Allergy (Unknown, Verified 03/08/19 22:52) cephalexin monohydrate [From Keflex] Adverse Reaction (Verified 03/08/19 22:52) nausea, vomiting erythromycin base [Erythromycin Base] Adverse Reaction (Verified 03/08/19 22:52) nausea, vomiting gabapentin Adverse Reaction (Verified 03/08/19 22:52) Nausea guaifenesin [From Entex T] Adverse Reaction (Verified 03/08/19 22:52) Nausea pseudoephedrine [From Entex T] Adverse Reaction (Verified 03/08/19 22:52) Nausea Review of Systems Review of Systems: As per history of present illness. All pertinent systems were reviewed above. Constitutional, HEENT, cardiovascular, respiratory, GI, , musculoskeletal, neuro, psychiatric, endocrine, integumentary and hematologic systems were reviewed and are otherwise negative/unremarkable except for positive findings mentioned above in the HPI. Physical Exam Vital Signs: Temp Pulse Resp BP Pulse Ox 97.5 F 109 H 22 H 128/47 H 100 03/09/19 04:07 03/09/19 04:07 03/09/19 04:07 03/09/19 04:07 03/09/19 04:07 Intake & Output 03/08/19 03/09/19 03/10/19 06:59 06:59 06:59 Intake Total 1350 Balance 1350 Weight 109 kg Exam: Generally: Pleasant elderly female in mild respiratory distress on BiPAP Vital signs-as listed Head - atraumatic, normocephalic. Pupils - equal, round and reactive to light and accommodation. Extraocular m ovements are intact. No scleral icterus. Oropharynx - moist mucous membranes and tongue. No pharyngeal erythema or exudate. Neck - supple. No JVD. Carotid pulses 2+ bilaterally. No carotid bruits. No palpable thyromegaly or lymphadenopathy. Cardiovascular - regular rate and rhythm. Normal S1 and S2. No murmurs, gallops or rubs. Lungs -diminished bibasilar breath sounds, right basal crackles with diffuse expiratory wheezes and tight expiratory airflow with harsh vesicular breathing Abdomen - soft and nontender. Positive bowel sounds. No palpable organomegaly or masses. Extremities -trace bilateral lower extremity pitting edema, with no clubbing or cyanosis. Neuro - grossly non-focal. Skin - no rashes. Breast, pelvic and rectal - deferred Results Laboratory Results: 03/08/19 22:45 03/08/19 22:45 03/08/19 03/08/19 03/08/19 22:45 22:45 22:45 WBC 10.0 RBC 3.44 L Hgb 10.3 L Hct 30.5 L MCV 89 MCH 29.8 MCHC 33.6 RDW 15.2 H Plt Count 258 Seg Neutrophils % 72.1 Lymphocytes % 18.2 Monocytes % 7.1 Eosinophils % 2.1 Basophils % 0.5 Absolute Neutrophils 7.2 Absolute Lymphocytes 1.8 Absolute Monocytes 0.7 Absolute Eosinophils 0.2 Absolute Basophils 0.1 VBG pH VBG pCO2 VBG HCO3 VBG Base Excess Sodium 137.3 Potassium 4.1 Chloride 101 Carbon Dioxide 27 Anion Gap 9 BUN 50 H Creatinine 1.83 H Est GFR ( Amer) 34 L Est GFR (Non-Af Amer) 28 L Glucose 151 H Lactic Acid 1.7 Calcium 8.9 Total Bilirubin 0.2 AST 22 Alkaline Phosphatase 103 Total Protein 6.3 Albumin 3.5 Urine Color Urine Appearance Urine pH Ur Specific Traver Urine Protein Urine Glucose (UA) Urine Ketones Urine Blood Urine Nitrite Ur Leukocyte Esterase Urine WBC (Auto) Urine RBC (Auto) 03/08/19 03/09/19 22:45 01:20 WBC RBC Hgb Hct MCV MCH MCHC RDW Plt Count Seg Neutrophils % Lymphocytes % Monocytes % Eosinophils % Basophils % Absolute Neutrophils Absolute Lymphocytes Absolute Monocytes Absolute Eosinophils Absolute Basophils VBG pH 7.30 VBG pCO2 59.5 VBG HCO3 28.8 VBG Base Excess 1.5 Sodium Potassium Chloride Carbon Dioxide Anion Gap BUN Creatinine Est GFR ( Amer) Est GFR (Non-Af Amer) Glucose Lactic Acid Calcium Total Bilirubin AST Alkaline Phosphatase Total Protein Albumin Urine Color YELLOW Urine Appearance CLEAR Urine pH 5.0 Ur Specific Traver 1.011 Urine Protein NEGATIVE Urine Glucose (UA) NEGATIVE Urine Ketones NEGATIVE Urine Blood NEGATIVE Urine Nitrite NEGATIVE Ur Leukocyte Esterase NEGATIVE Urine WBC (Auto) 0 Urine RBC (Auto) 0 Impressions: Chest X-Ray 03/08/19 22:46 IMPRESSION: Patchy right basilar opacity. Consider atelectasis or pneumonia to include aspiration. Recommend follow-up to clearing. copyright 2010 [employer]- All Rights Reserved Assessment and Plan - Diagnosis (1) Pneumonia Qualifiers: Pneumonia type: due to unspecified organism Laterality: right Lung location: lower lobe of lung Qualified Code(s): J18.1 - Lobar pneumonia, unspecified organism Is this a current diagnosis for this admission?: Yes Plan: The patient will be admitted to medical monitor bed. She was placed on IV Levaquin. Will follow blood cultures. She will be placed on scheduled and PRN duo nebs as well as medical therapy with Mucinex. Sputum Gram stain culture and sensitivity will be obtained. (2) COPD exacerbation Is this a current diagnosis for this admission?: Yes Plan: The patient will be placed on nebulized bronchodilator therapy as well as steroid therapy with Solu-Medrol, [place] therapy with Mucinex and antibiotic therapy with IV Levaquin (3) Acute on chronic respiratory failure with hypoxia and hypercapnia Is this a current diagnosis for this admission?: Yes Plan: She will be continued on BiPAP will be tapered to nasal cannula when tolerated. O2 protocol will be followed. (4) Acute kidney injury superimposed on chronic kidney disease Is this a current diagnosis for this admission?: Yes Plan: The patient will be hydrated with IV normal saline and will follow her BMP. (5) DVT prophylaxis Is this a current diagnosis for this admission?: Yes Plan: Subcutaneous Lovenox - Time Time Spent with patient: 35 or more minutes Medications reviewed and adjusted accordingly: Yes Anticipated discharge: Home Within: within 72 hours - Inpatient Certification Based on my medical assessment, after consideration of the patient's comorbidities, presenting symptoms, or acuity I expect that the services needed warrant INPATIENT care.: Yes I certify that my determination is in accordance with my understanding of Medic are's requirements for reasonable and necessary INPATIENT services [42 CFR 412.3e].: Yes Medical Necessity: Need For IV Fluids, Need for Nebulizer Therapy and Monitoring of Response, Need for IV Antibiotics Post Hospital Care: D/C or Transfer Summary - Plan Summary Plan Summary: The plan of care was discussed in details with the patient. I answered all questions. The patient agreed to proceed with the above-mentioned plan. The patient is presumably full code. This note was created by [employer] dictating software and may contain typo errors that may have not been proofread.
[2019-03-09] MEDS ORDERED: ENOXAPARIN SODIUM INJ 40 MG/0.4 ML DISP.SYRIN SUBCUT SCH (10:00)
[2019-03-09] MEDS: GUAIFENESIN 600 MG TABLET.SA PO SCH ×2 (10:14→22:08)
[2019-03-09] MEDS: FAMOTIDINE 20 MG TABLET PO SCH (10:16)
[2019-03-09] MEDS ORDERED: LEVOTHYROXINE SODIUM 0.05 MG TABLET PO ONE (11:30)
[2019-03-09] MEDS: FLUOXETINE HCL 20 MG CAPSULE PO SCH (12:43)
[2019-03-09] MEDS: METOLAZONE 5 MG TABLET PO SCH (12:44)
[2019-03-09] MEDS: MAGNESIUM OXIDE 400 MG TABLET PO SCH (12:44)
[2019-03-09] MEDS: ATORVASTATIN CALCIUM 20 MG TABLET PO SCH (12:44)
--- NOTE | 2019-03-09 13:16 | Progress Note ---
Provider Note Provider Note: This is 63 years old female patient with past medical history of CHF, hyperlipidemia, hypertension, COPD, hypothyroidism, depression, stage III CKD presented with chief complaint of shortness of breath she continues cough and wheezing which have been significantly worse since yesterday morning. Chest x-ray reported as right patchy basilar airspace disease which can be due to atelectasis versus pneumonia. Patient has been started empirically on Levaquin and she is also on bronchodilators and steroid. This morning patient seen sitting up in bed. She is awake alert oriented she is not in distress. Accepted this patient.
[2019-03-09] MEDS: IPRATROPIUM/ALBUTEROL 0.5-2.5 MG/3 ML AMPUL NEB PRN ×2 (13:40→23:40)
[2019-03-09] MEDS: DICYCLOMINE HCL 20 MG TABLET PO SCH ×2 (14:25→18:19)
[2019-03-09] MEDS: PROMETHAZINE HCL 25 MG TABLET PO PRN ×2 (14:25→22:30)
[2019-03-09] MEDS: ALPRAZOLAM 0.5 MG TABLET PO SCH ×3 (14:25→22:09)
[2019-03-09] MEDS: PRIMIDONE 50 MG TABLET PO SCH ×2 (14:25→18:15)
[2019-03-09] MEDS: METHYLPREDNISOLONE INJ 40 MG/1 ML SDV IV SCH ×2 (14:26→22:10)
[2019-03-09] MEDS: FONDAPARINUX SODIUM INJ 7.5 MG/0.6 ML DISP.SYRIN SUBCUT SCH (14:36)
[2019-03-09] MEDS: POTASSIUM CHLORIDE 10 MEQ CAPSULE.ER PO SCH (16:09)
[2019-03-09] MEDS: OXYCODONE HCL IR 5 MG TABLET PO SCH ×2 (16:10→18:18)
[2019-03-09] MEDS: CETIRIZINE 5 MG TABLET PO SCH (16:11)
[2019-03-09] MEDS ORDERED: (PENDING PHARMACY ID) (Azelastine Hcl [Azelastine Hcl] 1 SPRAY) NS SCH (18:00)
[2019-03-09] MEDS: IPRATROPIUM/ALBUTEROL 0.5-2.5 MG/3 ML AMPUL NEB SCH (20:03)
[2019-03-09] MEDS ORDERED: (PENDING PHARMACY ID) (Donepezil Hcl [Donepezil Hcl] 10 MG) PO SCH (22:00)
[2019-03-09] MEDS ORDERED: (PENDING PHARMACY ID) (Eszopiclone [Lunesta] 2 MG) PO SCH (22:00)
[2019-03-09] MEDS: PANTOPRAZOLE SODIUM 20 MG TABLET.DR PO SCH (22:08)
[2019-03-09] MEDS: DONEPEZIL HCL 5 MG TABLET PO SCH (22:08)
[2019-03-09] MEDS: RAMIPRIL 2.5 MG CAPSULE PO SCH (22:09)
[2019-03-09] MEDS: ZOLPIDEM TARTRATE 5 MG TABLET PO SCH (22:10)
[2019-03-09] MEDS: ROPINIROLE HCL 0.25 MG TABLET PO SCH (22:10)
[2019-03-10] MEDS: OXYCODONE HCL IR 5 MG TABLET PO SCH ×5 (00:37→23:23)
[2019-03-10] MEDS: IPRATROPIUM/ALBUTEROL 0.5-2.5 MG/3 ML AMPUL NEB PRN (03:53)
[2019-03-10] MEDS: LEVOTHYROXINE SODIUM 0.1 MG TABLET PO SCH (05:23)
[2019-03-10] MEDS: METHYLPREDNISOLONE INJ 40 MG/1 ML SDV IV SCH ×3 (05:25→22:04)
[2019-03-10] MEDS ORDERED: LEVOTHYROXINE SODIUM 0.05 MG TABLET PO SCH (06:00)
[2019-03-10 06:28] LABS: ABSOLUTE LYMPHOCYTES (AUTO) 1.1 10^3/uL (0.5-4.7); ABSOLUTE MONOCYTES (AUTO) 1.1 10^3/uL (0.1-1.4); ABSOLUTE NEUT (AUTO) 10.7 10^3/uL (1.7-8.2); BASOPHILS % (AUTO) 0.1 % (0-2); EOSINOPHILS % (AUTO) 0.1 % (0-6); HEMOGLOBIN 9.6 g/dL (12.0-15.5); LYMPHOCYTES % (AUTO) 8.7 % (13-45); MEAN CORPUSCULAR HEMOGLOBIN 29.2 pg (27.0-33.4); MEAN CORPUSCULAR VOLUME 89 fl (80-97); MONOCYTES % (AUTO) 8.4 % (3-13); PLATELET COUNT 233 10^3/uL (150-450); RED BLOOD COUNT 3.28 10^6/uL (3.72-5.28); RED CELL DISTRIBUTION WIDTH 15.3 % (11.5-14.0); SEGMENTED NEUTROPHILS % (AUTO) 82.7 % (42-78); TOTAL CELLS COUNTED % (AUTO) 100 %; WHITE BLOOD COUNT 12.9 10^3/uL (4.0-10.5)
[2019-03-10 06:42] LABS: ANION GAP 11 (5-19); BLOOD UREA NITROGEN 49 mg/dL (7-20); CALCIUM 9.2 mg/dL (8.4-10.2); CARBON DIOXIDE 26 mmol/L (22-30); CHLORIDE 99 mmol/L (98-107); GLUCOSE 126 mg/dL (75-110); POTASSIUM 4.9 mmol/L (3.6-5.0)
[2019-03-10] MEDS ORDERED: (PENDING PHARMACY ID) (Levothyroxine Sodium [Levothyroxine Sodium] 200 MCG) PO SCH (08:00)
[2019-03-10] MEDS: IPRATROPIUM/ALBUTEROL 0.5-2.5 MG/3 ML AMPUL NEB SCH ×3 (08:43→20:44)
[2019-03-10] MEDS ORDERED: (PENDING PHARMACY ID) (Potassium Chloride [Klor-Con M20] 20 MEQ) PO SCH (10:00)
[2019-03-10] MEDS ORDERED: [UNRECOGNIZED DRUG - REMARK] PO SCH (10:00)
[2019-03-10] MEDS: FLUOXETINE HCL 20 MG CAPSULE PO SCH (11:16)
[2019-03-10] MEDS: METOLAZONE 5 MG TABLET PO SCH (11:17)
[2019-03-10] MEDS: PRIMIDONE 50 MG TABLET PO SCH ×3 (11:17→18:53)
[2019-03-10] MEDS: ATORVASTATIN CALCIUM 20 MG TABLET PO SCH (11:17)
[2019-03-10] MEDS: ALPRAZOLAM 0.5 MG TABLET PO SCH ×4 (11:20→22:03)
[2019-03-10] MEDS: DICYCLOMINE HCL 20 MG TABLET PO SCH ×3 (11:20→17:50)
[2019-03-10] MEDS: CETIRIZINE 5 MG TABLET PO SCH (11:21)
[2019-03-10] MEDS: GUAIFENESIN 600 MG TABLET.SA PO SCH ×2 (11:21→22:03)
[2019-03-10] MEDS: PRENATAL VITAMIN W DHA CAPSULE PO SCH (11:21)
[2019-03-10] MEDS: FAMOTIDINE 20 MG TABLET PO SCH (11:22)
[2019-03-10] MEDS: POTASSIUM CHLORIDE 10 MEQ CAPSULE.ER PO SCH (11:23)
[2019-03-10] MEDS: MAGNESIUM OXIDE 400 MG TABLET PO SCH (11:23)
[2019-03-10] MEDS: FLUTICASONE NASAL SPRAY 50 MCG/SPRY 120 SPRAY/16 GM NAREB SCH (11:24)
[2019-03-10] MEDS: NYSTATIN TOPICAL POWDER 15 GM TP PRN (11:26)
[2019-03-10] MEDS: FONDAPARINUX SODIUM INJ 7.5 MG/0.6 ML DISP.SYRIN SUBCUT SCH (11:32)
--- NOTE | 2019-03-10 13:53 | Progress Note Acknowledgement ---
Progress Note Acknowledgement Progess Note Acknowledgement: I, the undersigned member of the medical staff with appropriate privileges and with supervisory authority over [ PAC], a dependent practice allied health professional, acknowledge that I have reviewed the progress notes entered on this patient, and in my professional judgment believe that the assessment made and/or any care evidenced was appropriate
--- NOTE | 2019-03-10 14:11 | PDOC PROGRESS REPORT ---
Subjective Progress Note for:: 03/10/19 Subjective:: Possibly secondary to aspiration and a COPD exacerbation. Patient is currently on vancomycin Levaquin and meropenem. Patient is also received some IV Solu- Medrol and IV magnesium. Patient still complaining of shortness of breath and had a very similar episode back in June and July which required several days of hospitalization as well. Patient's is in the room during the exam Reason For Visit: PNEUOMONIA, COPD EXCERBATION Physical Exam Vital Signs: Temp Pulse Resp BP Pulse Ox 98.2 F 79 18 115/64 95 03/10/19 08:00 03/10/19 08:00 03/10/19 08:00 03/10/19 08:00 03/10/19 08:43 Intake & Output 03/09/19 03/10/19 03/11/19 06:59 06:59 06:59 Intake Total 1350 760 Output Total 1050 Balance 1350 -290 Weight 109 kg 122.8 kg General appearance: PRESENT: mild distress Respiratory exam: PRESENT: rhonchi, other - Coarse rhonchi this sounds to be mainly in the mainstem bronchus. Cardiovascular exam: PRESENT: RRR. ABSENT: diastolic murmur, rubs, systolic murmur Neurological exam: PRESENT: alert, awake, oriented to person, oriented to place, oriented to time, oriented to situation, CN II-XII grossly intact. ABSENT: motor sensory deficit Psychiatric exam: PRESENT: anxious, manic Results Laboratory Results: 03/10/19 05:57 03/10/19 05:57 03/10/19 03/10/19 05:57 05:57 WBC 12.9 H RBC 3.28 L Hgb 9.6 L Hct 29.0 L MCV 89 MCH 29.2 MCHC 33.0 RDW 15.3 H Plt Count 233 Seg Neutrophils % 82.7 H Lymphocytes % 8.7 L Monocytes % 8.4 Eosinophils % 0.1 Basophils % 0.1 Absolute Neutrophils 10.7 H Absolute Lymphocytes 1.1 Absolute Monocytes 1.1 Absolute Eosinophils 0.0 Absolute Basophils 0.0 Sodium 135.5 L Potassium 4.9 Chloride 99 Carbon Dioxide 26 Anion Gap 11 BUN 49 H Creatinine 1.66 H Est GFR ( Amer) 38 L Est GFR (Non-Af Amer) 31 L Glucose 126 H Calcium 9.2 Impressions: Chest X-Ray 03/08/19 22:46 IMPRESSION: Patchy right basilar opacity. Consider atelectasis or pneumonia to include aspiration. Recommend follow-up to clearing. copyright 2010 [employer]- All Rights Reserved Assessment and Plan - Diagnosis (1) Obesity Is this a current diagnosis for this admission?: Yes Plan: Patient's obesity is a complication concerning for obstructive sleep apnea poor posture (2) COPD exacerbation Is this a current diagnosis for this admission?: Yes Plan: Patient is currently receiving BiPAP as well as nebulizer treatments patient also receives Solu-Medrol 40 mg IV every 8 hours patient's sats are running around 95 or 96% on 2 to 3 L of nasal cannula (3) Pneumonia Qualifiers: Pneumonia type: due to unspecified organism Laterality: right Lung location: lower lobe of lung Qualified Code(s): J18.1 - Lobar pneumonia, unspecified organism Is this a current diagnosis for this admission?: Yes Plan: The patient will be admitted to medical monitor bed. She was placed on IV Lev aquin. Will follow blood cultures. She will be placed on scheduled and PRN duo nebs as well as medical therapy with Mucinex. Sputum Gram stain culture and sensitivity will be obtained. 03/10/2019 patient is currently receiving IV Levaquin patient has remained afebrile throughout hospitalization patient's white count is 10,000 on admission 12.9 now, blood cultures negative x24 hours Patient is allergic to Mucinex she was given some Tessalon Perles her request - Time Time Spent with patient: 25-34 minutes
[2019-03-10] MEDS ORDERED: LEVOFLOXACIN 750 MG/D5W RTU 750 MG/150 ML RTUPB IV SCH (22:00)
[2019-03-10] MEDS: RAMIPRIL 2.5 MG CAPSULE PO SCH (22:02)
[2019-03-10] MEDS: DONEPEZIL HCL 5 MG TABLET PO SCH (22:03)
[2019-03-10] MEDS: ZOLPIDEM TARTRATE 5 MG TABLET PO SCH (22:03)
[2019-03-10] MEDS: ROPINIROLE HCL 0.25 MG TABLET PO SCH (22:04)
[2019-03-10] MEDS: PANTOPRAZOLE SODIUM 20 MG TABLET.DR PO SCH (22:04)
[2019-03-11] MEDS ORDERED: NITROGLYCERIN 2% OINTMENT 1 GM PACKET ONE (04:12)
[2019-03-11] MEDS ORDERED: BUMETANIDE INJ/PF 1 MG/4 ML SDV ONE (04:12)
[2019-03-11] MEDS ORDERED: MORPHINE SULFATE 10 MG/ML INJ ONE (04:51)
[2019-03-11] MEDS ORDERED: ONDANSETRON HCL INJ/PF 4 MG/2 ML SDV ONE (04:52)
[2019-03-11] MEDS: METHYLPREDNISOLONE INJ 40 MG/1 ML SDV IV SCH ×3 (05:18→22:57)
[2019-03-11 06:12] LABS: ABSOLUTE EOSINOPHILS # (AUTO) 0.2 10^3/uL (0.0-0.6); ABSOLUTE LYMPHOCYTES (AUTO) 0.8 10^3/uL (0.5-4.7); ABSOLUTE MONOCYTES (AUTO) 1.1 10^3/uL (0.1-1.4); BASOPHILS % (AUTO) 0.1 % (0-2); EOSINOPHILS % (AUTO) 1.7 % (0-6); HEMATOCRIT 29.1 % (36.0-47.0); HEMOGLOBIN 9.8 g/dL (12.0-15.5); LYMPHOCYTES % (AUTO) 5.7 % (13-45); MEAN CORPUSCULAR HEMOGLOBIN 29.6 pg (27.0-33.4); MEAN CORPUSCULAR HGB CONC 33.6 g/dL (32.0-36.0); MEAN CORPUSCULAR VOLUME 88 fl (80-97); MONOCYTES % (AUTO) 8.6 % (3-13); PLATELET COUNT 213 10^3/uL (150-450); RED BLOOD COUNT 3.31 10^6/uL (3.72-5.28); RED CELL DISTRIBUTION WIDTH 15.1 % (11.5-14.0); SEGMENTED NEUTROPHILS % (AUTO) 83.9 % (42-78); TOTAL CELLS COUNTED % (AUTO) 100 %; WHITE BLOOD COUNT 13.2 10^3/uL (4.0-10.5)
[2019-03-11] MEDS: OXYCODONE HCL IR 5 MG TABLET PO SCH ×4 (06:23→23:02)
[2019-03-11] MEDS: LEVOTHYROXINE SODIUM 0.1 MG TABLET PO SCH (06:23)
[2019-03-11 06:29] LABS: ANION GAP 7 (5-19); BLOOD UREA NITROGEN 40 mg/dL (7-20); CALCIUM 9.1 mg/dL (8.4-10.2); CARBON DIOXIDE 29 mmol/L (22-30); CHLORIDE 99 mmol/L (98-107); GLUCOSE 136 mg/dL (75-110); POTASSIUM 4.4 mmol/L (3.6-5.0)
[2019-03-11] MEDS ORDERED: ONDANSETRON HCL INJ/PF 4 MG/2 ML SDV IV PRN (06:40)
[2019-03-11] MEDS: IPRATROPIUM/ALBUTEROL 0.5-2.5 MG/3 ML AMPUL NEB SCH ×3 (08:53→19:56)
--- NOTE | 2019-03-11 09:14 | RADIOLOGY REPORT (SQ) ---
EXAM DESCRIPTION: CHEST 2 VIEWS COMPLETED DATE/TIME: 03/11/2019 8:54 am REASON FOR STUDY: follow up COMPARISON: 03/08/2019 EXAM PARAMETERS: NUMBER OF VIEWS: two views TECHNIQUE: Digital Frontal and Lateral radiographic views of the chest acquired. RADIATION DOSE: NA LIMITATIONS: none FINDINGS: LUNGS AND PLEURA: Worsening airspace disease within the right upper lobe and left mid and basilar lung. The mildly improved right basilar aeration. No large effusion. No pneumothorax. MEDIASTINUM AND HILAR STRUCTURES: No masses or contour abnormalities. HEART AND VASCULAR STRUCTURES: Normal heart size. Aortic atherosclerosis. BONES: No acute findings. HARDWARE: None in the chest. OTHER: No other significant finding. IMPRESSION: Worsening airspace disease within the right upper and left mid and lower lung suspicious for multifocal pneumonia. Recommend continued follow-up to resolution. TECHNICAL DOCUMENTATION: JOB ID: [id number] [employer]- All Rights Reserved Reading location - IP/workstation name: [email or web address]
[2019-03-11] MEDS ORDERED: ERGOCALCIFEROL (VITAMIN D2) 50000 UNIT (1.25 MG) CAPSULE PO SCH (10:00)
[2019-03-11] MEDS: FLUTICASONE NASAL SPRAY 50 MCG/SPRY 120 SPRAY/16 GM NAREB SCH (10:29)
[2019-03-11] MEDS: FONDAPARINUX SODIUM INJ 7.5 MG/0.6 ML DISP.SYRIN SUBCUT SCH (10:29)
[2019-03-11] MEDS: MAGNESIUM OXIDE 400 MG TABLET PO SCH (10:30)
[2019-03-11] MEDS: METOLAZONE 5 MG TABLET PO SCH (10:30)
[2019-03-11] MEDS: PRENATAL VITAMIN W DHA CAPSULE PO SCH (10:30)
[2019-03-11] MEDS: FLUOXETINE HCL 20 MG CAPSULE PO SCH (10:30)
[2019-03-11] MEDS: FAMOTIDINE 20 MG TABLET PO SCH (10:30)
[2019-03-11] MEDS: DICYCLOMINE HCL 20 MG TABLET PO SCH ×3 (10:30→17:35)
[2019-03-11] MEDS: POTASSIUM CHLORIDE 10 MEQ CAPSULE.ER PO SCH (10:31)
[2019-03-11] MEDS: CETIRIZINE 5 MG TABLET PO SCH (10:31)
[2019-03-11] MEDS: ALPRAZOLAM 0.5 MG TABLET PO SCH ×4 (10:31→22:57)
[2019-03-11] MEDS: GUAIFENESIN 600 MG TABLET.SA PO SCH ×2 (10:31→22:57)
[2019-03-11] MEDS: PRIMIDONE 50 MG TABLET PO SCH ×3 (10:31→17:35)
[2019-03-11] MEDS: KETOROLAC TROMETHAMINE INJ/PF 30 MG/1 ML SDV IV PRN ×2 (10:40→19:33)
[2019-03-11] MEDS: BENZONATATE 100 MG CAPSULE PO PRN ×2 (10:40→19:35)
[2019-03-11] MEDS: NYSTATIN TOPICAL POWDER 15 GM TP PRN (10:49)
[2019-03-11] MEDS: ATORVASTATIN CALCIUM 20 MG TABLET PO SCH (12:04)
[2019-03-11] MEDS ORDERED: PIPERACILLIN/TAZOBACTAM 3.375 GM VIAL IV ONE (12:29)
--- NOTE | 2019-03-11 12:45 | PDOC PROGRESS REPORT ---
Subjective Progress Note for:: 03/11/19 Subjective:: Possibly secondary to aspiration and a COPD exacerbation. Patient is currently on vancomycin Levaquin and meropenem. Patient is also received some IV Solu- Medrol and IV magnesium. Patient still complaining of shortness of breath and had a very similar episode back in June and July which required several days of hospitalization as well. Patient's is in the room during the exam 03/11/2019 diuretics well as medication for hypertension. Repeat chest x-ray today showed worsening of her pneumonia. Patient continues to use BiPAP oxygen percent 50% to sat 97% Reason For Visit: PNEUOMONIA, COPD EXCERBATION Physical Exam Vital Signs: Temp Pulse Resp BP Pulse Ox 98.4 F 117 H 18 109/58 L 97 03/11/19 11:01 03/11/19 11:01 03/11/19 11:01 03/11/19 11:01 03/11/19 11:01 Intake & Output 03/10/19 03/11/19 03/12/19 06:59 06:59 06:59 Intake Total 760 2088 Output Total 1050 2400 Balance -290 -312 Weight 122.8 kg 117 kg General appearance: PRESENT: mild distress Respiratory exam: PRESENT: decreased breath sounds Cardiovascular exam: PRESENT: RRR. ABSENT: diastolic murmur, rubs, systolic murmur Neurological exam: PRESENT: alert, awake, oriented to person, oriented to place, oriented to time, oriented to situation, CN II-XII grossly intact. ABSENT: motor sensory deficit Psychiatric exam: PRESENT: anxious, flat affect Results Laboratory Results: 03/11/19 05:59 03/11/19 05:59 03/11/19 03/11/19 05:59 05:59 WBC 13.2 H RBC 3.31 L Hgb 9.8 L Hct 29.1 L MCV 88 MCH 29.6 MCHC 33.6 RDW 15.1 H Plt Count 213 Seg Neutrophils % 83.9 H Lymphocytes % 5.7 L Monocytes % 8.6 Eosinophils % 1.7 Basophils % 0.1 Absolute Neutrophils 11.0 H Absolute Lymphocytes 0.8 Absolute Monocytes 1.1 Absolute Eosinophils 0.2 Absolute Basophils 0.0 Sodium 134.6 L Potassium 4.4 Chloride 99 Carbon Dioxide 29 Anion Gap 7 BUN 40 H Creatinine 1.34 H Est GFR ( Amer) 48 L Est GFR (Non-Af Amer) 40 L Glucose 136 H Calcium 9.1 Impressions: Chest X-Ray 03/11/19 00:00 IMPRESSION: Worsening airspace disease within the right upper and left mid and lower lung suspicious for multifocal pneumonia. Recommend continued follow-up to resolution. Assessment and Plan - Diagnosis (1) Obesity Is this a current diagnosis for this admission?: Yes Plan: Patient's obesity is a complication concerning for obstructive sleep apnea poor posture. 03/11/2019 on admission weight was 109 kg, weight today is 117 kg, will continue diuresing (2) COPD exacerbation Is this a current diagnosis for this admission?: Yes Plan: Patient is currently receiving BiPAP as well as nebulizer treatments patient also receives Solu-Medrol 40 mg IV every 8 hours patient's sats are running around 95 or 96% on 2 to 3 L of nasal cannula 03/11/2019 patient continues to use BiPAP sats continue to run high at 97 to 98%. Patient continues nebs as well (3) Pneumonia Qualifiers: Pneumonia type: due to unspecified organism Laterality: right Lung location: lower lobe of lung Qualified Code(s): J18.1 - Lobar pneumonia, unsp ecified organism Is this a current diagnosis for this admission?: Yes Plan: The patient will be admitted to medical monitor bed. She was placed on IV Levaquin. Will follow blood cultures. She will be placed on scheduled and PRN duo nebs as well as medical therapy with Mucinex. Sputum Gram stain culture and sensitivity will be obtained. 03/10/2019 patient is currently receiving IV Levaquin patient has remained afebrile throughout hospitalization patient's white count is 10,000 on admission 12.9 now, blood cultures negative x24 hours Patient is allergic to Mucinex she was given some Tessalon Perles her request 03/11/2019 chest x-ray today shows worsening of the pneumonia, I have added Zosyn to her Levaquin. Patient remains afebrile temperature this morning 98 4, blood pressure 109/58 pulse 117, white count is gone up slightly 13.2 BUN is gone down to 40 from 49 creatinine has gone down to 1.34 from 1.66 - Time Time Spent with patient: 25-34 minutes
[2019-03-11] MEDS: PIPERACILLIN SODIUM/TAZOBACTAM 3.375 GM in NORMAL SALINE 100 ML IV SCH ×2 (15:28→22:56)
[2019-03-11] MEDS: CYCLOBENZAPRINE HCL 10 MG TABLET PO PRN (19:33)
[2019-03-11] MEDS: ZOLPIDEM TARTRATE 5 MG TABLET PO SCH (22:57)
[2019-03-11] MEDS: RAMIPRIL 2.5 MG CAPSULE PO SCH (22:57)
[2019-03-11] MEDS: ROPINIROLE HCL 0.25 MG TABLET PO SCH (22:57)
[2019-03-11] MEDS: PANTOPRAZOLE SODIUM 20 MG TABLET.DR PO SCH (22:57)
[2019-03-11] MEDS: DONEPEZIL HCL 5 MG TABLET PO SCH (22:58)
[2019-03-12] MEDS: LEVOFLOXACIN 750 MG/D5W RTU 750 MG/150 ML RTUPB IV SCH ×2 (00:17→21:23)
[2019-03-12] MEDS: KETOROLAC TROMETHAMINE INJ/PF 30 MG/1 ML SDV IV PRN ×3 (01:26→20:52)
[2019-03-12] MEDS: PIPERACILLIN SODIUM/TAZOBACTAM 3.375 GM in NORMAL SALINE 100 ML IV SCH ×4 (03:05→20:52)
[2019-03-12] MEDS: OXYCODONE HCL IR 5 MG TABLET PO SCH ×3 (06:43→17:54)
[2019-03-12] MEDS: METHYLPREDNISOLONE INJ 40 MG/1 ML SDV IV SCH ×3 (06:43→21:22)
[2019-03-12] MEDS: LEVOTHYROXINE SODIUM 0.1 MG TABLET PO SCH (06:43)
[2019-03-12 06:57] LABS: ABSOLUTE MONOCYTES (AUTO) 0.9 10^3/uL (0.1-1.4); ABSOLUTE NEUT (AUTO) 10.1 10^3/uL (1.7-8.2); BASOPHILS % (AUTO) 0.2 % (0-2); EOSINOPHILS % (AUTO) 0.2 % (0-6); HEMATOCRIT 28.7 % (36.0-47.0); HEMOGLOBIN 9.3 g/dL (12.0-15.5); MEAN CORPUSCULAR HEMOGLOBIN 29.1 pg (27.0-33.4); MEAN CORPUSCULAR HGB CONC 32.6 g/dL (32.0-36.0); MEAN CORPUSCULAR VOLUME 89 fl (80-97); MONOCYTES % (AUTO) 7.4 % (3-13); PLATELET COUNT 188 10^3/uL (150-450); RED BLOOD COUNT 3.21 10^6/uL (3.72-5.28); SEGMENTED NEUTROPHILS % (AUTO) 84.2 % (42-78); TOTAL CELLS COUNTED % (AUTO) 100 %
[2019-03-12] MEDS: MORPHINE SULFATE 10 MG/ML INJ IV PRN (07:00)
[2019-03-12 07:20] LABS: ANION GAP 10 (5-19); BLOOD UREA NITROGEN 46 mg/dL (7-20); CALCIUM 8.5 mg/dL (8.4-10.2); CARBON DIOXIDE 26 mmol/L (22-30); CHLORIDE 99 mmol/L (98-107); GLUCOSE 110 mg/dL (75-110); POTASSIUM 4.9 mmol/L (3.6-5.0)
[2019-03-12] MEDS: IPRATROPIUM/ALBUTEROL 0.5-2.5 MG/3 ML AMPUL NEB SCH ×3 (08:09→20:29)
[2019-03-12] MEDS ORDERED: LEVOFLOXACIN 750 MG/D5W RTU 750 MG/150 ML RTUPB IV SCH (10:00)
[2019-03-12] MEDS: DICYCLOMINE HCL 20 MG TABLET PO SCH ×3 (10:59→17:55)
[2019-03-12] MEDS: PRENATAL VITAMIN W DHA CAPSULE PO SCH (10:59)
[2019-03-12] MEDS: FLUOXETINE HCL 20 MG CAPSULE PO SCH (10:59)
[2019-03-12] MEDS: CETIRIZINE 5 MG TABLET PO SCH (10:59)
[2019-03-12] MEDS: PRIMIDONE 50 MG TABLET PO SCH ×3 (10:59→17:55)
[2019-03-12] MEDS: FAMOTIDINE 20 MG TABLET PO SCH (10:59)
[2019-03-12] MEDS: METOLAZONE 5 MG TABLET PO SCH (10:59)
[2019-03-12] MEDS: ALPRAZOLAM 0.5 MG TABLET PO SCH ×4 (10:59→21:25)
[2019-03-12] MEDS: FONDAPARINUX SODIUM INJ 7.5 MG/0.6 ML DISP.SYRIN SUBCUT SCH (11:00)
[2019-03-12] MEDS: POTASSIUM CHLORIDE 10 MEQ CAPSULE.ER PO SCH (11:00)
[2019-03-12] MEDS: GUAIFENESIN 600 MG TABLET.SA PO SCH ×2 (11:00→21:24)
[2019-03-12] MEDS: MAGNESIUM OXIDE 400 MG TABLET PO SCH (11:00)
[2019-03-12] MEDS: FLUTICASONE NASAL SPRAY 50 MCG/SPRY 120 SPRAY/16 GM NAREB SCH (11:00)
--- NOTE | 2019-03-12 11:14 | PDOC PROGRESS REPORT ---
Subjective Progress Note for:: 03/12/19 Subjective:: Possibly secondary to aspiration and a COPD exacerbation. Patient is currently on vancomycin Levaquin and meropenem. Patient is also received some IV Solu- Medrol and IV magnesium. Patient still complaining of shortness of breath and had a very similar episode back in June and July which required several days of hospitalization as well. Patient's is in the room during the exam 03/11/2019 diuretics well as medication for hypertension. Repeat chest x-ray today showed worsening of her pneumonia. Patient continues to use BiPAP oxygen percent 50% to sat 97% 03/12/2019 patient sitting up in bed feeding herself breakfast and looks like she feels better and reports feeling better. Vital signs are stable temperature 97.9, pulse is 86 and regular O2 sat 95% on 3 L nasal cannula, blood pressure is approximately 120/60 Reason For Visit: PNEUOMONIA, COPD EXCERBATION Physical Exam Vital Signs: Temp Pulse Resp BP Pulse Ox 97.9 F 86 18 104/55 L 95 03/12/19 07:15 03/12/19 08:12 03/12/19 08:12 03/12/19 07:15 03/12/19 08:12 Intake & Output 03/11/19 03/12/19 03/13/19 06:59 06:59 06:59 Intake Total 2088 1330 Output Total 2400 Balance -312 1330 Weight 117 kg 115.3 kg General appearance: PRESENT: no acute distress, well-developed, well-nourished, other - Patient is feeling better Respiratory exam: PRESENT: clear to auscultation allison, other - Patient has coarse rhonchi in the large airways nothing in the periphery. ABSENT: rales, rhonchi, wheezes Cardiovascular exam: PRESENT: RRR. ABSENT: diastolic murmur, rubs, systolic murmur Neurological exam: PRESENT: alert, awake, oriented to person, oriented to place, oriented to time, oriented to situation, CN II-XII grossly intact. ABSENT: motor sensory deficit Psychiatric exam: PRESENT: appropriate affect, normal mood, other - Patient appears to be in good spirits. ABSENT: homicidal ideation, suicidal ideation Results Laboratory Results: 03/12/19 06:33 03/12/19 06:33 03/11/19 03/12/19 03/12/19 13:42 06:33 06:33 WBC 12.0 H RBC 3.21 L Hgb 9.3 L Hct 28.7 L MCV 89 MCH 29.1 MCHC 32.6 RDW 15.0 H Plt Count 188 Seg Neutrophils % 84.2 H Sodium 134.6 L Potassium 4.9 Chloride 99 Carbon Dioxide 26 Anion Gap 10 BUN 46 H Creatinine 1.47 H Est GFR ( Amer) 43 L Glucose 110 Lactic Acid 0.9 Calcium 8.5 03/09/19 01:20 Rodriguez Catheter Urine Culture - Final NO GROWTH 2 DAYS 03/11/19 13:42 NT-Pro-B Natriuret Pep 99346 H Impressions: Chest X-Ray 03/11/19 00:00 IMPRESSION: Worsening airspace disease within the right upper and left mid and lower lung suspicious for multifocal pneumonia. Recommend continued follow-up to resolution. Assessment and Plan - Diagnosis (1) Obesity Is this a current diagnosis for this admission?: Yes Plan: Patient's obesity is a complication concerning for obstructive sleep apnea poor posture. 03/11/2019 on admission weight was 109 kg, weight today is 117 kg, will continue diuresing weight today is 115.3 kg (2) COPD exacerbation Is this a current diagnosis for this admission?: Yes Plan: Patient is currently receiving BiPAP as well as nebulizer treatments patient also receives Solu-Medrol 40 mg IV every 8 hours patient's sats are running around 95 or 96% on 2 to 3 L of nasal cannula 03/11/2019 patient continues to use BiPAP sats continue to run high at 97 to 98%. Patient continues nebs as well Patient is sitting up just using nasal cannula maintaining her sats on 2 to 3 L of oxygen. No audible wheezing patient is talking in full sentences. (3) Pneumonia Qualifiers: Pneumonia type: due to unspecified organism Laterality: right Lung location: lower lobe of lung Qualified Code(s): J18.1 - Lobar pneumonia, unspecified organism Is this a current diagnosis for this admission?: Yes Plan: The patient will be admitted to medical monitor bed. She was placed on IV Levaquin. Will follow blood cultures. She will be placed on scheduled and PRN duo nebs as well as medical therapy with Mucinex. Sputum Gram stain culture and sensitivity will be obtained. 03/10/2019 patient is currently receiving IV Levaquin patient has remained afebrile throughout hospitalization patient's white count is 10,000 on admission 12.9 now, blood cultures negative x24 hours Patient is allergic to Mucinex she was given some Tessalon Perles her request 03/11/2019 chest x-ray today shows worsening of the pneumonia, I have added Zosyn to her Levaquin. Patient remains afebrile temperature this morning 98 4, blood pressure 109/58 pulse 117, white count is gone up slightly 13.2 BUN is gone down to 40 from 49 creatinine has gone down to 1.34 from 1.66 03/12/2019 patient is on day 2 of Zosyn and is on day 4 of her Levaquin. Count is stable at 12,000. Chest x-ray was done yesterday showing worsening of her pneumonia radiographically however clinically she appears to be improving (4) CHF (congestive heart failure) Is this a current diagnosis for this admission?: Yes Plan: Patient was on medication for CHF prior to admission, Demadex 40 mg daily, as well as Zaroxolyn 5 mg daily. It looks like her Demadex was stopped on admission I started that back at 20 mg twice daily with a dose to be given now - Time Time Spent with patient: 25-34 minutes
[2019-03-12] MEDS: TORSEMIDE 20 MG TABLET PO SCH ×2 (12:39→17:56)
[2019-03-12] MEDS: ATORVASTATIN CALCIUM 20 MG TABLET PO SCH (12:39)
[2019-03-12] MEDS: NYSTATIN TOPICAL POWDER 15 GM TP PRN (12:39)
[2019-03-12] MEDS: CYCLOBENZAPRINE HCL 10 MG TABLET PO PRN (20:51)
[2019-03-12] MEDS: PANTOPRAZOLE SODIUM 20 MG TABLET.DR PO SCH (21:23)
[2019-03-12] MEDS: DONEPEZIL HCL 5 MG TABLET PO SCH (21:23)
[2019-03-12] MEDS: ROPINIROLE HCL 0.25 MG TABLET PO SCH (21:24)
[2019-03-12] MEDS: ZOLPIDEM TARTRATE 5 MG TABLET PO SCH (21:24)
[2019-03-12] MEDS: RAMIPRIL 2.5 MG CAPSULE PO SCH (21:27)
[2019-03-13] MEDS: OXYCODONE HCL IR 5 MG TABLET PO SCH ×5 (00:07→23:57)
[2019-03-13] MEDS: PIPERACILLIN SODIUM/TAZOBACTAM 3.375 GM in NORMAL SALINE 100 ML IV SCH ×4 (02:48→21:08)
[2019-03-13] MEDS: LEVOTHYROXINE SODIUM 0.1 MG TABLET PO SCH (06:53)
[2019-03-13] MEDS: METHYLPREDNISOLONE INJ 40 MG/1 ML SDV IV SCH ×3 (06:53→23:59)
[2019-03-13] MEDS: IPRATROPIUM/ALBUTEROL 0.5-2.5 MG/3 ML AMPUL NEB SCH ×3 (09:16→20:38)
--- NOTE | 2019-03-13 09:30 | PDOC PROGRESS REPORT ---
Subjective Progress Note for:: 03/13/19 Subjective:: Possibly secondary to aspiration and a COPD exacerbation. Patient is currently on vancomycin Levaquin and meropenem. Patient is also received some IV Solu- Medrol and IV magnesium. Patient still complaining of shortness of breath and had a very similar episode back in June and July which required several days of hospitalization as well. Patient's is in the room during the exam 03/11/2019 diuretics well as medication for hypertension. Repeat chest x-ray today showed worsening of her pneumonia. Patient continues to use BiPAP oxygen percent 50% to sat 97% 03/12/2019 patient sitting up in bed feeding herself breakfast and looks like she feels better and reports feeling better. Vital signs are stable temperature 97.9, pulse is 86 and regular O2 sat 95% on 3 L nasal cannula, blood pressure is approximately 120/60. 03/13/2019 looking at patient sitting up in bed she looks like she is breathing easier and in fact her sats are 99% this morning however that was on BiPAP, but even on nasal cannula her sats remain in the mid to upper 90s. I talked to nursing today and they are going to try to discontinue the BiPAP machine unless her sats are low or she is complaining of shortness of breath. Patient's blood pressure remained stable, and she is afebrile I have put an order in for physical therapy to get her up out of bed into a chair today, patient requires a lot of seen and motivation to do this, but it needs to be done. I am going to check another BMP today her weight remains tween 115 and 117. She is on the Demadex 20 mg twice daily scheduled dosing now, and continues to Zosyn and Levaquin IV Reason For Visit: PNEUOMONIA, COPD EXCERBATION Physical Exam Vital Signs: Temp Pulse Resp BP Pulse Ox 97.9 F 95 18 118/63 99 03/13/19 03:19 03/13/19 03:19 03/13/19 04:34 03/13/19 03:19 03/13/19 04:34 Intake & Output 03/12/19 03/13/19 03/14/19 06:59 06:59 06:59 Intake Total 1330 1860 Output Total 2550 Balance 1330 -690 Weight 115.3 kg 117.1 kg General appearance: PRESENT: no acute distress, well-developed, well-nourished Respiratory exam: PRESENT: clear to auscultation allison, other - Chest actually sounds better today with less upper airway sounds. ABSENT: rales, rhonchi, wheezes Neurological exam: PRESENT: alert, awake, oriented to person, oriented to place, oriented to time, oriented to situation, CN II-XII grossly intact. ABSENT: motor sensory deficit Psychiatric exam: PRESENT: appropriate affect, normal mood. ABSENT: homicidal ideation, suicidal ideation Results Laboratory Results: 03/12/19 06:33 03/12/19 06:33 03/11/19 13:42 NT-Pro-B Natriuret Pep [id number] H Impressions: Chest X-Ray 03/11/19 00:00 IMPRESSION: Worsening airspace disease within the right upper and left mid and lower lung suspicious for multifocal pneumonia. Recommend continued follow-up to resolution. Assessment and Plan - Diagnosis (1) Obesity Is this a current diagnosis for this admission?: Yes Plan: Patient's obesity is a complication concerning for obstructive sleep apnea poor posture. 03/11/2019 on admission weight was 109 kg, weight today is 117 kg, will continue diuresing weight today is 115.3 kg 03/13/2019 and today is 117 kg (2) COPD exacerbation Is this a current diagnosis for this admission?: Yes Plan: Patient is currently receiving BiPAP as well as nebulizer treatments patient also receives Solu-Medrol 40 mg IV every 8 hours patient's sats are running around 95 or 96% on 2 to 3 L of nasal cannula 03/11/2019 patient continues to use BiPAP sats continue to run high at 97 to 98%. Patient continues nebs as well Patient is sitting up just using nasal cannula maintaining her sats on 2 to 3 L of oxygen. No audible wheezing patient is talking in full sentences.. 03/13/2019 last chest x-ray was just 2 days ago see no need to repeat it today patient is continuing her nebulizer treatments well as her antibiotics and steroids. Try to decrease her steroids gradually over the next several days today I will go down to 40 mg IV every 12 instead of every 8. (3) Pneumonia Qualifiers: Pneumonia type: due to unspecified organism Laterality: right Lung location: lower lobe of lung Qualified Code(s): J18.1 - Lobar pneumonia, unspecified organism Is this a current diagnosis for this admission?: Yes Plan: The patient will be admitted to medical monitor bed. She was placed on IV Levaquin. Will follow blood cultures. She will be placed on scheduled and PRN duo nebs as well as medical therapy with Mucinex. Sputum Gram stain culture and sensitivity will be obtained. 03/10/2019 patient is currently receiving IV Levaquin patient has remained afebrile throughout hospitalization patient's white count is 10,000 on admission 12.9 now, blood cultures negative x24 hours Patient is allergic to Mucinex she was given some Tessalon Perles her request 03/11/2019 chest x-ray today shows worsening of the pneumonia, I have added Zosyn to her Levaquin. Patient remains afebrile temperature this morning 98 4, blood pressure 109/58 pulse 117, white count is gone up slightly 13.2 BUN is gone down to 40 from 49 creatinine has gone down to 1.34 from 1.66 03/12/2019 patient is on day 2 of Zosyn and is on day 4 of her Levaquin. Count i s stable at 12,000. Chest x-ray was done yesterday showing worsening of her pneumonia radiographically however clinically she appears to be improving 03/13/2019. Day 3 of Zosyn day 5 of Levaquin, she remains stable and clinically appears to be improving. We will try to DC the BiPAP machine today (4) CHF (congestive heart failure) Is this a current diagnosis for this admission?: Yes Plan: Patient was on medication for CHF prior to admission, Demadex 40 mg daily, as well as Zaroxolyn 5 mg daily. It looks like her Demadex was stopped on admission I started that back at 20 mg twice daily with a dose to be given now 03/13/2019 we will monitor daily weights no obvious peripheral edema, patient does not sound wet - Time Time Spent with patient: 25-34 minutes
[2019-03-13] MEDS: MAGNESIUM OXIDE 400 MG TABLET PO SCH (09:31)
[2019-03-13] MEDS: FLUOXETINE HCL 20 MG CAPSULE PO SCH (09:31)
[2019-03-13] MEDS: GUAIFENESIN 600 MG TABLET.SA PO SCH ×2 (09:31→23:54)
[2019-03-13] MEDS: PRENATAL VITAMIN W DHA CAPSULE PO SCH (09:31)
[2019-03-13] MEDS: ALPRAZOLAM 0.5 MG TABLET PO SCH ×3 (09:31→18:09)
[2019-03-13] MEDS: TORSEMIDE 20 MG TABLET PO SCH ×2 (09:32→18:09)
[2019-03-13] MEDS: FAMOTIDINE 20 MG TABLET PO SCH (09:32)
[2019-03-13] MEDS: POTASSIUM CHLORIDE 10 MEQ CAPSULE.ER PO SCH (09:32)
[2019-03-13] MEDS: FLUTICASONE NASAL SPRAY 50 MCG/SPRY 120 SPRAY/16 GM NAREB SCH (09:33)
[2019-03-13] MEDS: NYSTATIN TOPICAL POWDER 15 GM TP PRN (09:33)
[2019-03-13] MEDS: CETIRIZINE 5 MG TABLET PO SCH (09:43)
[2019-03-13] MEDS: PRIMIDONE 50 MG TABLET PO SCH ×3 (09:43→18:09)
[2019-03-13] MEDS: DICYCLOMINE HCL 20 MG TABLET PO SCH ×3 (09:43→18:09)
[2019-03-13] MEDS: METOLAZONE 5 MG TABLET PO SCH (09:43)
[2019-03-13] MEDS: FONDAPARINUX SODIUM INJ 7.5 MG/0.6 ML DISP.SYRIN SUBCUT SCH (09:44)
[2019-03-13] MEDS: KETOROLAC TROMETHAMINE INJ/PF 30 MG/1 ML SDV IV PRN (09:56)
[2019-03-13] MEDS: ATORVASTATIN CALCIUM 20 MG TABLET PO SCH (13:16)
[2019-03-13] MEDS: MORPHINE SULFATE 10 MG/ML INJ IV PRN (15:25)
[2019-03-13] MEDS: BENZONATATE 100 MG CAPSULE PO PRN (18:09)
[2019-03-13] MEDS: LEVOFLOXACIN 750 MG TABLET PO SCH (18:10)
[2019-03-13] MEDS: DONEPEZIL HCL 5 MG TABLET PO SCH (23:54)
[2019-03-13] MEDS: PANTOPRAZOLE SODIUM 20 MG TABLET.DR PO SCH (23:55)
[2019-03-13] MEDS: ZOLPIDEM TARTRATE 5 MG TABLET PO SCH (23:56)
[2019-03-13] MEDS: ROPINIROLE HCL 0.25 MG TABLET PO SCH (23:57)
[2019-03-14] MEDS: ALPRAZOLAM 0.5 MG TABLET PO SCH ×5 (00:08→22:00)
[2019-03-14] MEDS: RAMIPRIL 2.5 MG CAPSULE PO SCH ×2 (00:11→21:56)
[2019-03-14] MEDS: PIPERACILLIN SODIUM/TAZOBACTAM 3.375 GM in NORMAL SALINE 100 ML IV SCH ×4 (03:59→21:57)
[2019-03-14] MEDS: BENZONATATE 100 MG CAPSULE PO PRN ×2 (04:01→17:08)
[2019-03-14] MEDS: MORPHINE SULFATE 10 MG/ML INJ IV PRN ×4 (04:18→20:34)
[2019-03-14] MEDS: OXYCODONE HCL IR 5 MG TABLET PO SCH ×4 (06:49→23:22)
[2019-03-14] MEDS: METHYLPREDNISOLONE INJ 40 MG/1 ML SDV IV SCH ×3 (06:50→21:56)
[2019-03-14] MEDS: LEVOTHYROXINE SODIUM 0.1 MG TABLET PO SCH (06:50)
[2019-03-14] MEDS: IPRATROPIUM/ALBUTEROL 0.5-2.5 MG/3 ML AMPUL NEB SCH ×3 (08:35→20:11)
[2019-03-14] MEDS: FONDAPARINUX SODIUM INJ 7.5 MG/0.6 ML DISP.SYRIN SUBCUT SCH (09:41)
[2019-03-14] MEDS: FLUTICASONE NASAL SPRAY 50 MCG/SPRY 120 SPRAY/16 GM NAREB SCH (09:41)
[2019-03-14] MEDS: POTASSIUM CHLORIDE 10 MEQ CAPSULE.ER PO SCH (09:42)
[2019-03-14] MEDS: PRENATAL VITAMIN W DHA CAPSULE PO SCH (09:42)
[2019-03-14] MEDS: FAMOTIDINE 20 MG TABLET PO SCH (09:42)
[2019-03-14] MEDS: DICYCLOMINE HCL 20 MG TABLET PO SCH ×3 (09:42→17:09)
[2019-03-14] MEDS: GUAIFENESIN 600 MG TABLET.SA PO SCH ×2 (09:42→21:56)
[2019-03-14] MEDS: FLUOXETINE HCL 20 MG CAPSULE PO SCH (09:42)
[2019-03-14] MEDS: METOLAZONE 5 MG TABLET PO SCH (09:42)
[2019-03-14] MEDS: CETIRIZINE 5 MG TABLET PO SCH (09:42)
[2019-03-14] MEDS: MAGNESIUM OXIDE 400 MG TABLET PO SCH (09:42)
[2019-03-14] MEDS: PRIMIDONE 50 MG TABLET PO SCH ×3 (09:42→17:09)
[2019-03-14] MEDS: TORSEMIDE 20 MG TABLET PO SCH ×2 (09:43→17:08)
[2019-03-14] MEDS: ATORVASTATIN CALCIUM 20 MG TABLET PO SCH (11:53)
[2019-03-14] MEDS: KETOROLAC TROMETHAMINE INJ/PF 30 MG/1 ML SDV IV PRN (11:54)
--- NOTE | 2019-03-14 12:37 | PDOC PROGRESS REPORT ---
Subjective Progress Note for:: 03/14/19 Subjective:: Possibly secondary to aspiration and a COPD exacerbation. Patient is currently on vancomycin Levaquin and meropenem. Patient is also received some IV Solu- Medrol and IV magnesium. Patient still complaining of shortness of breath and had a very similar episode back in June and July which required several days of hospitalization as well. Patient's is in the room during the exam 03/11/2019 diuretics well as medication for hypertension. Repeat chest x-ray today showed worsening of her pneumonia. Patient continues to use BiPAP oxygen percent 50% to sat 97% 03/12/2019 patient sitting up in bed feeding herself breakfast and looks like she feels better and reports feeling better. Vital signs are stable temperature 97.9, pulse is 86 and regular O2 sat 95% on 3 L nasal cannula, blood pressure is approximately 120/60. 03/13/2019 looking at patient sitting up in bed she looks like she is breathing easier and in fact her sats are 99% this morning however that was on BiPAP, but even on nasal cannula her sats remain in the mid to upper 90s. I talked to nursing today and they are going to try to discontinue the BiPAP machine unless her sats are low or she is complaining of shortness of breath. Patient's blood pressure remained stable, and she is afebrile I have put an order in for physical therapy to get her up out of bed into a chair today, patient requires a lot of seen and motivation to do this, but it needs to be done. I am going to check another BMP today her weight remains tween 115 and 117. She is on the Demadex 20 mg twice daily scheduled dosing now, and continues to Zosyn and Levaquin IV 03/14/2019 patient continues to improve vital signs blood pressure 119/56 temp 98 1 pulse 104 O2 sat 100% on 2 L nasal cannula has not used BiPAP in 24 hours Labs are pending from today. Patient got up out of bed yesterday sat in a chair got up to the bathroom she was exhausted afterwards but pleased with her self and this. He appears less short of breath and is asking to go home will repeat chest x-ray in a.m.. Zosyn was started on the , 3 days ago. Demadex was started on the 20 mg twice daily. Levaquin has been running now for 5 days IV Reason For Visit: PNEUOMONIA, COPD EXCERBATION Physical Exam Vital Signs: Temp Pulse Resp BP Pulse Ox 98.1 F 104 H 18 119/56 L 100 03/14/19 09:27 03/14/19 09:27 03/14/19 09:27 03/14/19 09:27 03/14/19 09:27 Intake & Output 03/13/19 03/14/19 03/15/19 06:59 06:59 06:59 Intake Total 1860 1780 100 Output Total 2550 1600 Balance -690 180 100 Weight 117.1 kg 121 kg General appearance: PRESENT: no acute distress, other - Sitting up talking in full sentences in the bed in no distress Respiratory exam: PRESENT: clear to auscultation allison. ABSENT: rales, rhonchi, wheezes Cardiovascular exam: PRESENT: RRR. ABSENT: diastolic murmur, rubs, systolic murmur Neurological exam: PRESENT: alert, awake, oriented to person, oriented to place, oriented to time, oriented to situation, CN II-XII grossly intact. ABSENT: motor sensory deficit Psychiatric exam: PRESENT: appropriate affect, normal mood, other - Spirits. AB SENT: homicidal ideation, suicidal ideation Results Laboratory Results: 03/12/19 06:33 03/12/19 06:33 03/08/19 23:45 Blood Blood Culture - Final NO GROWTH IN 5 DAYS 03/08/19 22:45 Blood Blood Culture - Final NO GROWTH IN 5 DAYS 03/11/19 03/13/19 13:42 10:45 NT-Pro-B Natriuret Pep 34299 H 5940 H Impressions: Chest X-Ray 03/11/19 00:00 IMPRESSION: Worsening airspace disease within the right upper and left mid and lower lung suspicious for multifocal pneumonia. Recommend continued follow-up to resolution. Assessment and Plan - Diagnosis (1) Obesity Is this a current diagnosis for this admission?: Yes Plan: Patient's obesity is a complication concerning for obstructive sleep apnea poor posture. 03/11/2019 on admission weight was 109 kg, weight today is 117 kg, will continue diuresing weight today is 115.3 kg 03/13/2019 and today is 117 kg. 03/14/2019 patient's weight today is back up to 121 kg.. BNP however now is down to 5941 from 16,000 (2) COPD exacerbation Is this a current diagnosis for this admission?: Yes Plan: Patient is currently receiving BiPAP as well as nebulizer treatments patient also receives Solu-Medrol 40 mg IV every 8 hours patient's sats are running around 95 or 96% on 2 to 3 L of nasal cannula 03/11/2019 patient continues to use BiPAP sats continue to run high at 97 to 98%. Patient continues nebs as well Patient is sitting up just using nasal cannula maintaining her sats on 2 to 3 L of oxygen. No audible wheezing patient is talking in full sentences.. 03/13/2019 last chest x-ray was just 2 days ago see no need to repeat it today patient is continuing her nebulizer treatments well as her antibiotics and steroids. Try to decrease her steroids gradually over the next several days today I will go down to 40 mg IV every 12 instead of every 8. 03/14/2019 patient's pulmonary functions continue to improve patient in no respiratory distress, has not used BiPAP in 24 hours. Will repeat chest x-ray in the morning BNP today (3) Pneumonia Qualifiers: Pneumonia type: due to unspecified organism Laterality: right Lung location: lower lobe of lung Qualified Code(s): J18.1 - Lobar pneumonia, un specified organism Is this a current diagnosis for this admission?: Yes Plan: The patient will be admitted to medical monitor bed. She was placed on IV Levaquin. Will follow blood cultures. She will be placed on scheduled and PRN duo nebs as well as medical therapy with Mucinex. Sputum Gram stain culture and sensitivity will be obtained. 03/10/2019 patient is currently receiving IV Levaquin patient has remained afebrile throughout hospitalization patient's white count is 10,000 on admission 12.9 now, blood cultures negative x24 hours Patient is allergic to Mucinex she was given some Tessalon Perles her request 03/11/2019 chest x-ray today shows worsening of the pneumonia, I have added Zosyn to her Levaquin. Patient remains afebrile temperature this morning 98 4, blood pressure 109/58 pulse 117, white count is gone up slightly 13.2 BUN is gone down to 40 from 49 creatinine has gone down to 1.34 from 1.66 03/12/2019 patient is on day 2 of Zosyn and is on day 4 of her Levaquin. Count is stable at 12,000. Chest x-ray was done yesterday showing worsening of her pneumonia radiographically however clinically she appears to be improving 03/13/2019. Day 3 of Zosyn day 5 of Levaquin, she remains stable and clinically appears to be improving. We will try to DC the BiPAP machine today Eight 2418-day 4 of Zosyn day 6 of Levaquin she remains afebrile. Will repeat chest x-ray in a.m. repeat WBCs today (4) CHF (congestive heart failure) Is this a current diagnosis for this admission?: Yes Plan: Patient was on medication for CHF prior to admission, Demadex 40 mg daily, as well as Zaroxolyn 5 mg daily. It looks like her Demadex was stopped on admission I started that back at 20 mg twice daily with a dose to be given now 03/13/2019 we will monitor daily weights no obvious peripheral edema, patient does not sound wet 03/14/2019 BNP is come down medically. Patient is up on her weight today however she is also on Demadex chest x-ray in the a.m. Patient does not appear in congestive failure - Time Time Spent with patient: 25-34 minutes
[2019-03-14 13:18] LABS: ABSOLUTE EOSINOPHILS # (AUTO) 0.1 10^3/uL (0.0-0.6); ABSOLUTE LYMPHOCYTES (AUTO) 0.9 10^3/uL (0.5-4.7); ABSOLUTE NEUT (AUTO) 8.8 10^3/uL (1.7-8.2); BASOPHILS % (AUTO) 0.1 % (0-2); EOSINOPHILS % (AUTO) 0.6 % (0-6); HEMATOCRIT 28.2 % (36.0-47.0); HEMOGLOBIN 9.5 g/dL (12.0-15.5); LYMPHOCYTES % (AUTO) 8.1 % (13-45); MEAN CORPUSCULAR HEMOGLOBIN 29.7 pg (27.0-33.4); MEAN CORPUSCULAR HGB CONC 33.8 g/dL (32.0-36.0); MEAN CORPUSCULAR VOLUME 88 fl (80-97); MONOCYTES % (AUTO) 8.9 % (3-13); PLATELET COUNT 234 10^3/uL (150-450); RED BLOOD COUNT 3.21 10^6/uL (3.72-5.28); RED CELL DISTRIBUTION WIDTH 14.8 % (11.5-14.0); SEGMENTED NEUTROPHILS % (AUTO) 82.3 % (42-78); TOTAL CELLS COUNTED % (AUTO) 100 %; WHITE BLOOD COUNT 10.7 10^3/uL (4.0-10.5)
[2019-03-14 13:36] LABS: ANION GAP 9 (5-19); BLOOD UREA NITROGEN 44 mg/dL (7-20); CALCIUM 8.6 mg/dL (8.4-10.2); CARBON DIOXIDE 30 mmol/L (22-30); CHLORIDE 100 mmol/L (98-107); GLUCOSE 107 mg/dL (75-110); POTASSIUM 4.5 mmol/L (3.6-5.0)
[2019-03-14] MEDS: LEVOFLOXACIN 750 MG TABLET PO SCH (17:09)
[2019-03-14] MEDS: PANTOPRAZOLE SODIUM 20 MG TABLET.DR PO SCH (21:56)
[2019-03-14] MEDS: ROPINIROLE HCL 0.25 MG TABLET PO SCH (21:56)
[2019-03-14] MEDS: DONEPEZIL HCL 5 MG TABLET PO SCH (21:56)
[2019-03-14] MEDS: LUNESTA PO SCH (21:58)
[2019-03-14] MEDS: PROMETHAZINE HCL 25 MG TABLET PO PRN (22:04)
[2019-03-15] MEDS: BENZONATATE 100 MG CAPSULE PO PRN ×2 (03:25→12:01)
[2019-03-15] MEDS: PIPERACILLIN SODIUM/TAZOBACTAM 3.375 GM in NORMAL SALINE 100 ML IV SCH ×4 (03:26→20:57)
[2019-03-15] MEDS: METHYLPREDNISOLONE INJ 40 MG/1 ML SDV IV SCH ×3 (05:50→22:37)
[2019-03-15] MEDS: OXYCODONE HCL IR 5 MG TABLET PO SCH ×4 (05:50→23:00)
[2019-03-15] MEDS: LEVOTHYROXINE SODIUM 0.1 MG TABLET PO SCH (05:50)
[2019-03-15] MEDS: IPRATROPIUM/ALBUTEROL 0.5-2.5 MG/3 ML AMPUL NEB SCH ×3 (08:16→20:29)
[2019-03-15] MEDS: MORPHINE SULFATE 10 MG/ML INJ IV PRN ×4 (09:34→20:52)
[2019-03-15] MEDS: PROMETHAZINE HCL 25 MG TABLET PO PRN (09:34)
[2019-03-15] MEDS: FLUTICASONE NASAL SPRAY 50 MCG/SPRY 120 SPRAY/16 GM NAREB SCH (09:35)
[2019-03-15] MEDS: FONDAPARINUX SODIUM INJ 7.5 MG/0.6 ML DISP.SYRIN SUBCUT SCH (09:35)
[2019-03-15] MEDS: PRENATAL VITAMIN W DHA CAPSULE PO SCH (09:36)
[2019-03-15] MEDS: METOLAZONE 5 MG TABLET PO SCH (09:36)
[2019-03-15] MEDS: POTASSIUM CHLORIDE 10 MEQ CAPSULE.ER PO SCH (09:36)
[2019-03-15] MEDS: GUAIFENESIN 600 MG TABLET.SA PO SCH ×2 (09:36→22:24)
[2019-03-15] MEDS: TORSEMIDE 20 MG TABLET PO SCH ×2 (09:36→17:31)
[2019-03-15] MEDS: PRIMIDONE 50 MG TABLET PO SCH ×3 (09:36→17:28)
[2019-03-15] MEDS: FAMOTIDINE 20 MG TABLET PO SCH (09:36)
[2019-03-15] MEDS: FLUOXETINE HCL 20 MG CAPSULE PO SCH (09:36)
[2019-03-15] MEDS: ALPRAZOLAM 0.5 MG TABLET PO SCH ×4 (09:36→22:24)
[2019-03-15] MEDS: MAGNESIUM OXIDE 400 MG TABLET PO SCH (09:37)
[2019-03-15] MEDS: CETIRIZINE 5 MG TABLET PO SCH (09:37)
[2019-03-15] MEDS: DICYCLOMINE HCL 20 MG TABLET PO SCH ×3 (09:37→17:29)
[2019-03-15] MEDS: ATORVASTATIN CALCIUM 20 MG TABLET PO SCH (11:59)
--- NOTE | 2019-03-15 12:17 | PDOC PROGRESS REPORT ---
Subjective Progress Note for:: 03/15/19 Subjective:: Possibly secondary to aspiration and a COPD exacerbation. Patient is currently on vancomycin Levaquin and meropenem. Patient is also received some IV Solu- Medrol and IV magnesium. Patient still complaining of shortness of breath and had a very similar episode back in June and July which required several days of hospitalization as well. Patient's is in the room during the exam 03/11/2019 diuretics well as medication for hypertension. Repeat chest x-ray today showed worsening of her pneumonia. Patient continues to use BiPAP oxygen percent 50% to sat 97% 03/12/2019 patient sitting up in bed feeding herself breakfast and looks like she feels better and reports feeling better. Vital signs are stable temperature 97.9, pulse is 86 and regular O2 sat 95% on 3 L nasal cannula, blood pressure is approximately 120/60. 03/13/2019 looking at patient sitting up in bed she looks like she is breathing easier and in fact her sats are 99% this morning however that was on BiPAP, but even on nasal cannula her sats remain in the mid to upper 90s. I talked to nursing today and they are going to try to discontinue the BiPAP machine unless her sats are low or she is complaining of shortness of breath. Patient's blood pressure remained stable, and she is afebrile I have put an order in for physical therapy to get her up out of bed into a chair today, patient requires a lot of seen and motivation to do this, but it needs to be done. I am going to check another BMP today her weight remains tween 115 and 117. She is on the Demadex 20 mg twice daily scheduled dosing now, and continues to Zosyn and Levaquin IV 03/14/2019 patient continues to improve vital signs blood pressure 119/56 temp 98 1 pulse 104 O2 sat 100% on 2 L nasal cannula has not used BiPAP in 24 hours Labs are pending from today. Patient got up out of bed yesterday sat in a chair got up to the bathroom she was exhausted afterwards but pleased with her self and this. He appears less short of breath and is asking to go home will repeat chest x-ray in a.m.. Zosyn was started on the , 3 days ago. Demadex was started on the 20 mg twice daily. Levaquin has been running now for 5 days IV. 03/15/2019. Temperature 98 patient remains afebrile, heart rate between 80 and 100, O2 sats between 93 and 100 on 2 L nasal cannula. We will check patient on room air, to see if patient needs home O2 Day 6 of IV Levaquin, day 4 of IV Zosyn. White count is normal BUN of 44 creatinine 1.56. Chest x-ray is pending from today O2 sat on room air is pending from today. BNP is trending down. Possible discharge tomorrow Reason For Visit: PNEUOMONIA, COPD EXCERBATION Physical Exam Vital Signs: Temp Pulse Resp BP Pulse Ox 98.0 F 121 H 17 126/64 H 94 03/15/19 07:38 03/15/19 08:16 03/15/19 08:16 03/15/19 07:38 03/15/19 08:16 Intake & Output 03/14/19 03/15/19 03/16/19 06:59 06:59 06:59 Intake Total 1780 1209 100 Output Total 1600 1920 Balance 180 -711 100 Weight 121 kg 120.6 kg General appearance: PRESENT: no acute distress, other - Sitting up in bed talking with her no acute distress Respiratory exam: PRESENT: decreased breath sounds, other - Probably due to obesity, no rales no rhonchi Neurological exam: PRESENT: alert, awake, oriented to person, oriented to place, oriented to time, oriented to situation, CN II-XII grossly intact. ABSENT: motor sensory deficit Psychiatric exam: PRESENT: appropriate affect, normal mood. ABSENT: homicidal ideation, suicidal ideation Results Laboratory Results: 03/14/19 12:55 03/14/19 12:55 03/14/19 03/14/19 12:55 12:55 WBC 10.7 H RBC 3.21 L Hgb 9.5 L Hct 28.2 L MCV 88 MCH 29.7 MCHC 33.8 RDW 14.8 H Plt Count 234 Seg Neutrophils % 82.3 H Sodium 139.3 Potassium 4.5 Chloride 100 Carbon Dioxide 30 Anion Gap 9 BUN 44 H Creatinine 1.56 H Est GFR ( Amer) 40 L Glucose 107 Calcium 8.6 03/11/19 03/13/19 03/14/19 13:42 10:45 12:55 NT-Pro-B Natriuret Pep 69243 H 5940 H 5720 H Impressions: Chest X-Ray 03/11/19 00:00 IMPRESSION: Worsening airspace disease within the right upper and left mid and lower lung suspicious for multifocal pneumonia. Recommend continued follow-up to resolution. Assessment and Plan - Diagnosis (1) Obesity Is this a current diagnosis for this admission?: Yes Plan: Patient's obesity is a complication concerning for obstructive sleep apnea poor posture. 03/11/2019 on admission weight was 109 kg, weight today is 117 kg, will continue diuresing weight today is 115.3 kg 03/13/2019 and today is 117 kg. 03/14/2019 patient's weight today is back up to 121 kg.. BNP however now is down to 5941 from 16,000 03/15/2019 weight 120 kg, BNP 5720 (2) COPD exacerbation Is this a current diagnosis for this admission?: Yes Plan: Patient is currently receiving BiPAP as well as nebulizer treatments patient also receives Solu-Medrol 40 mg IV every 8 hours patient's sats are running around 95 or 96% on 2 to 3 L of nasal cannula 03/11/2019 patient continues to use BiPAP sats continue to run high at 97 to 98%. Patient continues nebs as well Patient is sitting up just using nasal cannula maintaining her sats on 2 to 3 L of oxygen. No audible wheezing patient is talking in full sentences.. 03/13/2019 last chest x-ray was just 2 days ago see no need to repeat it today patient is continuing her nebulizer treatments well as her antibiotics and steroids. Try to decrease her steroids gradually over the next several days today I will go down to 40 mg IV every 12 instead of every 8. 03/14/2019 patient's pulmonary functions continue to improve patient in no respi ratory distress, has not used BiPAP in 24 hours. Will repeat chest x-ray in the morning BNP today 03/15/2019 chest x-ray is pending, no signs or respiratory distress (3) Pneumonia Qualifiers: Pneumonia type: due to unspecified organism Laterality: right Lung location: lower lobe of lung Qualified Code(s): J18.1 - Lobar pneumonia, unspecified organism Is this a current diagnosis for this admission?: Yes Plan: The patient will be admitted to medical monitor bed. She was placed on IV Levaquin. Will follow blood cultures. She will be placed on scheduled and PRN duo nebs as well as medical therapy with Mucinex. Sputum Gram stain culture and sensitivity will be obtained. 03/10/2019 patient is currently receiving IV Levaquin patient has remained afebrile throughout hospitalization patient's white count is 10,000 on admission 12.9 now, blood cultures negative x24 hours Patient is allergic to Mucinex she was given some Tessalon Perles her request 03/11/2019 chest x-ray today shows worsening of the pneumonia, I have added Zosyn to her Levaquin. Patient remains afebrile temperature this morning 98 4, blood pressure 109/58 pulse 117, white count is gone up slightly 13.2 BUN is gone down to 40 from 49 creatinine has gone down to 1.34 from 1.66 03/12/2019 patient is on day 2 of Zosyn and is on day 4 of her Levaquin. Count is stable at 12,000. Chest x-ray was done yesterday showing worsening of her p neumonia radiographically however clinically she appears to be improving 03/13/2019. Day 3 of Zosyn day 5 of Levaquin, she remains stable and clinically appears to be improving. We will try to DC the BiPAP machine today Eight 2418-day 4 of Zosyn day 6 of Levaquin she remains afebrile. Will repeat chest x-ray in a.m. repeat WBCs today Eight 241-day 5 of Zosyn day 7 of Levaquin. Chest x-ray is pending from today. Patient may be getting some diarrhea from her antibiotics (4) CHF (congestive heart failure) Is this a current diagnosis for this admission?: Yes Plan: Patient was on medication for CHF prior to admission, Demadex 40 mg daily, as well as Zaroxolyn 5 mg daily. It looks like her Demadex was stopped on admission I started that back at 20 mg twice daily with a dose to be given now 03/13/2019 we will monitor daily weights no obvious peripheral edema, patient does not sound wet 03/14/2019 BNP is come down medically. Patient is up on her weight today however she is also on Demadex chest x-ray in the a.m. Patient does not appear in congestive failure 03/15/2019 chest x-ray pending from today with no clinical evidence of congestive heart failure. Continue the Demadex daily ID - Time Time Spent with patient: 25-34 minutes - Possible discharge in the morning, may need home O2. Chest x-ray is pending from today. We will check his saturation on room air
--- NOTE | 2019-03-15 13:31 | RADIOLOGY REPORT (SQ) ---
EXAM DESCRIPTION: CHEST 2 VIEWS COMPLETED DATE/TIME: 03/15/2019 12:27 pm REASON FOR STUDY: Follow-up for pneumonia COMPARISON: 03/11/2019 EXAM PARAMETERS: NUMBER OF VIEWS: two views TECHNIQUE: Digital Frontal and Lateral radiographic views of the chest acquired. RADIATION DOSE: NA LIMITATIONS: none FINDINGS: LUNGS AND PLEURA: Improved aeration in the left lung. Residual airspace disease in the ri ght upper lobe. No effusions. MEDIASTINUM AND HILAR STRUCTURES: No masses or contour abnormalities. HEART AND VASCULAR STRUCTURES: Heart normal size. No evidence for failure. BONES: No acute findings. HARDWARE: None in the chest. OTHER: No other significant finding. IMPRESSION: Improving bilateral pneumonia. TECHNICAL DOCUMENTATION: JOB ID: [id number] [email or web address]- All Rights Reserved Reading location - IP/workstation name: [email or web address]
[2019-03-15] MEDS: LEVOFLOXACIN 750 MG TABLET PO SCH (17:29)
[2019-03-15] MEDS: PANTOPRAZOLE SODIUM 20 MG TABLET.DR PO SCH (22:24)
[2019-03-15] MEDS: DONEPEZIL HCL 5 MG TABLET PO SCH (22:24)
[2019-03-15] MEDS: ROPINIROLE HCL 0.25 MG TABLET PO SCH (22:24)
[2019-03-15] MEDS: RAMIPRIL 2.5 MG CAPSULE PO SCH (22:25)
[2019-03-15] MEDS: LUNESTA PO SCH (22:53)
[2019-03-16] MEDS: PIPERACILLIN SODIUM/TAZOBACTAM 3.375 GM in NORMAL SALINE 100 ML IV SCH ×2 (03:17→09:53)
[2019-03-16] MEDS: MORPHINE SULFATE 10 MG/ML INJ IV PRN ×3 (03:25→13:57)
[2019-03-16] MEDS: METHYLPREDNISOLONE INJ 40 MG/1 ML SDV IV SCH ×2 (06:15→13:54)
[2019-03-16] MEDS: LEVOTHYROXINE SODIUM 0.1 MG TABLET PO SCH (06:15)
[2019-03-16] MEDS: OXYCODONE HCL IR 5 MG TABLET PO SCH (06:15)
[2019-03-16] MEDS: METOLAZONE 5 MG TABLET PO SCH (10:00)
[2019-03-16] MEDS: FLUOXETINE HCL 20 MG CAPSULE PO SCH (10:01)
[2019-03-16] MEDS: POTASSIUM CHLORIDE 10 MEQ CAPSULE.ER PO SCH (10:02)
[2019-03-16] MEDS: FAMOTIDINE 20 MG TABLET PO SCH (10:03)
[2019-03-16] MEDS: CETIRIZINE 5 MG TABLET PO SCH (10:03)
[2019-03-16] MEDS: MAGNESIUM OXIDE 400 MG TABLET PO SCH (10:03)
[2019-03-16] MEDS: DICYCLOMINE HCL 20 MG TABLET PO SCH ×2 (10:04→13:53)
[2019-03-16] MEDS: PRIMIDONE 50 MG TABLET PO SCH ×2 (10:04→13:53)
[2019-03-16] MEDS: GUAIFENESIN 600 MG TABLET.SA PO SCH (10:05)
[2019-03-16] MEDS: PRENATAL VITAMIN W DHA CAPSULE PO SCH (10:05)
[2019-03-16] MEDS: ALPRAZOLAM 0.5 MG TABLET PO SCH (10:05)
[2019-03-16] MEDS: FONDAPARINUX SODIUM INJ 7.5 MG/0.6 ML DISP.SYRIN SUBCUT SCH (10:06)
[2019-03-16] MEDS: IPRATROPIUM/ALBUTEROL 0.5-2.5 MG/3 ML AMPUL NEB SCH ×2 (10:09→14:04)
[2019-03-16] MEDS: IPRATROPIUM/ALBUTEROL 0.5-2.5 MG/3 ML AMPUL NEB PRN (10:09)
[2019-03-16] MEDS: FLUTICASONE NASAL SPRAY 50 MCG/SPRY 120 SPRAY/16 GM NAREB SCH (10:12)
[2019-03-16] MEDS: PROMETHAZINE HCL 25 MG TABLET PO PRN (10:13)
[2019-03-16] MEDS: TORSEMIDE 20 MG TABLET PO SCH (10:15)
[2019-03-16] MEDS: CYCLOBENZAPRINE HCL 10 MG TABLET PO PRN (13:00)
[2019-03-16] MEDS: ATORVASTATIN CALCIUM 20 MG TABLET PO SCH (13:00)
[2019-03-16 13:41] VITALS: BP 115/36
[2019-03-16] MEDS: BENZONATATE 100 MG CAPSULE PO PRN (13:52)
--- NOTE | 2019-03-24 12:06 | PDOC DISCHARGE SUMMARY ---
General - Admit/Disc Date/PCP Admission Date/Primary Care Provider: 03/09/19 02:15 MARK HAILE MD She was admitted to the hospital on 03/09/2019 Discharge Date: 03/16/19 - Discharge Diagnosis (1) Obesity Is this a current diagnosis for this admission?: Yes Summary: Patient was counseled concerning her obesity, however due to her comorbidities difficult for her to exercise. I am sure her obesity is contributing to her pulmonary problems (2) COPD exacerbation Is this a current diagnosis for this admission?: Yes Summary: Patient's COPD exacerbation was on by her pneumonia she was probably aspiration. Patient was treated with IV steroids as well as IV antibiotics and relied heavily on BiPAP (3) Pneumonia Is this a current diagnosis for this admission?: Yes Summary: Patient was admitted to the hospital chest x-ray showed a right basilar opacity which was suspicious for aspiration pneumonia. Patient was treated with IV antibiotics (4) CHF (congestive heart failure) Is this a current diagnosis for this admission?: Yes Summary: Patient was on medication at home consisting of Demadex 20 mg twice daily. Patient's CHF was stable prior to this admission - Additional Information Resuscitation Status: Full Code Discharge Diet: As Tolerated Discharge Activity: Activity As Tolerated, Weigh Daily Home Medications: Albuterol Sulfate [Proair HFA Inhalation Aerosol 8.5 gm MDI] 1 puff IH Q6HP PRN 03/18/19 Albuterol Sulfate [Ventolin 0.083% Neb 2.5 mg/3 mL Ampul] 1 vial NEB RTQ4HP PRN 03/18/19 Alprazolam [Xanax 0.5 mg Tablet] 0.5 mg PO QID 03/18/19 Atorvastatin Calcium [Lipitor 20 mg Tablet] 20 mg PO NOON 03/18/19 Azelastine HCl 1 spray NASL BID 03/18/19 Cyclobenzaprine HCl [Flexeril 10 mg Tablet] 10 mg PO BIDP PRN 03/18/19 Dicyclomine HCl [Bentyl 10 mg Capsule] 10 mg PO TIDP PRN 03/18/19 Diphenoxylate HCl/Atropine [Lomotil 2.5-0.025 mg Tablet] 1 tab PO DAILYP PRN 03/18/19 Donepezil HCl [Aricept] 10 mg PO QHS 03/18/19 Duloxetine HCl 60 mg PO DAILY 03/18/19 Ergocalciferol (Vitamin D2) [Drisdol 50,000 unit (1.25MG) Capsule] 50,000 unit PO [id number] 03/18/19 Eszopiclone [Lunesta] 2 mg PO QHS 03/18/19 Fluticasone Propionate [Flonase Nasal [place] 50 Mcg/[place] 16 gm] 1 spray NASL DAILY 03/18/19 Fluticasone/Umeclidin/Vilanter [Trelegy 100-62.5-25 Mcg Ellipta 14 Dose/Dpi] 1 puff IH DAILY 03/18/19 Fondaparinux Sodium [Arixtra Inj 7.5 mg/0.6 ml Disp. Syrin] 7.5 mg SQ DAILY 03/18/19 Guaifenesin [Mucinex] 600 mg PO Q12 03/18/19 Levocetirizine Dihydrochloride [Xyzal] 5 mg PO DAILY 03/18/19 Levothyroxine Sodium [Synthroid] 200 mcg PO Q6AM 03/18/19 Magnesium Oxide [Mag-Ox 400 mg Tablet] 400 mg PO DAILY 03/18/19 Menthol/Zinc Oxide [Calmoseptine Ointment] 1 applic TOP TIDP PRN 03/18/19 Metolazone [Zaroxolyn 5 mg Tablet] 5 mg PO DAILY 03/18/19 Omeprazole 20 mg PO DAILY 03/18/19 Oxycodone HCl 15 mg PO Q6 03/18/19 Potassium Chloride [Klor-Con M20] 20 meq PO DAILY 03/18/19 Vitamin [-U Multiple Vitamin Capsule] 1 cap PO DAILY 03/18/19 Primidone [Mysoline 50 mg Tablet] 50 mg PO TID 03/18/19 Ramipril [Altace 2.5 mg Capsule] 2.5 mg PO QHS 03/18/19 Torsemide [Demadex 20 mg Tablet] 20 mg PO BID 03/18/19 Levofloxacin [Levaquin 500 mg Tablet] 500 mg PO DAILY #5 tablet 03/23/19 Prednisone [Deltasone 20 mg Tablet] 40 mg PO DAILY #10 tablet 03/23/19 Promethazine HCl [Phenergan 25 mg Tablet] 25 mg PO Q4HP PRN tablet 03/23/19 History of Present Illness History of Present Illness: LEATHA ATKINS is a 63 year old female Patient was admitted to the hospital for pneumonia probably aspiration as well as COPD exacerbation patient was placed originally on broad-spectrum antibiotics. Patient actually had 7 days of IV Levaquin and 5 days of IV Zosyn prior to discharge. On admission through the emergency room patient was placed on BiPAP and actually use BiPAP for several days, however eventually we weaned her to oxygen by nasal cannula at the time of discharge O2 sats in the mid 90s on room air. Patient was asking to be discharged home on p.o. antibiotics. Hospital Course Hospital Course: See the history of the present illness Physical Exam Vital Signs: Temp Pulse Resp BP Pulse Ox 97.9 F 106 H 18 115/36 L 96 03/16/19 12:53 03/16/19 14:00 03/16/19 14:00 03/16/19 12:53 03/16/19 14:00 General appearance: PRESENT: no acute distress Respiratory exam: PRESENT: decreased breath sounds, other - Do to obesity, however much clear just several days earlier Neurological exam: PRESENT: alert, awake, oriented to person, oriented to place, oriented to time, oriented to situation, CN II-XII grossly intact. ABSENT: motor sensory deficit Psychiatric exam: PRESENT: appropriate affect, normal mood, other - Patient in good spirits asking to be discharged home. ABSENT: homicidal ideation, suicidal ideation Results Laboratory Results: 03/14/19 12:55 03/14/19 12:55 03/11/19 03/13/19 03/14/19 13:42 10:45 12:55 NT-Pro-B Natriuret Pep 29173 H 5940 H 5720 H Impressions: Chest X-Ray 03/15/19 07:00 IMPRESSION: Improving bilateral pneumonia. Qualifiers - * PATIENT BEING DISCHARGED WITH ANY OF THE FOLLOWING DIAGNOSIS: No Acute Heart Failure - Is this a Heart Failure Patient?: No Plan Time Spent: Greater than 30 Minutes - Patient was discharged home on her regular medicines plus p.o. antibiotics
== END 2019-03-16 15:15 | disposition home or self-care (01) | DRG 190 ==
LOC: ER 22:40 → EH 03-09 02:15 → 3W 03-09 03:57
PROVIDERS: ADMIT Family Medicine; ATTEND Family Medicine
PROC: 5A09357 Assistance with Respiratory Ventilation, Less than 24 Consecutive Hours, Continuous Positive Airway Pressure (ICD-10-PCS; principal; 2019-03-09)
DX: J44.0 Chronic obstructive pulmonary disease with (acute) lower respiratory infection (principal); J96.22 Acute and chronic respiratory failure with hypercapnia; J96.21 Acute and chronic respiratory failure with hypoxia; J69.0 Pneumonitis due to inhalation of food and vomit; N17.9 Acute kidney failure, unspecified; I13.0 Hypertensive heart and chronic kidney disease with heart failure and stage 1 through stage 4 chronic kidney disease, or unspecified chronic kidney disease; Z68.41 Body mass index [BMI] 40.0-44.9, adult; I50.9 Heart failure, unspecified; N18.3 Chronic kidney disease, stage 3 (moderate); I69.311 Memory deficit following cerebral infarction; J44.1 Chronic obstructive pulmonary disease with (acute) exacerbation; D63.1 Anemia in chronic kidney disease; E03.9 Hypothyroidism, unspecified; E66.9 Obesity, unspecified; E78.5 Hyperlipidemia, unspecified; F32.9 Major depressive disorder, single episode, unspecified; M19.90 Unspecified osteoarthritis, unspecified site; Z87.891 Personal history of nicotine dependence; Z88.6 Allergy status to analgesic agent; Z88.1 Allergy status to other antibiotic agents; Z88.3 Allergy status to other anti-infective agents; Z88.8 Allergy status to other drugs, medicaments and biological substances; Z87.01 Personal history of pneumonia (recurrent); Z82.49 Family history of ischemic heart disease and other diseases of the circulatory system
CPT/HCPCS: 36415; 71045; 71046; 80048; 80053; 81001; 82803; 82962; 83605; 83880; 85025; 85610; 87040; 87086; 93005; 93010; 94640; 94660; 96361; 96365; 96375; 99291; J1652; J1885; J1956; J2185; J2270; J2405; J2543; J2920; J2930; J3370; J3475; J3490; J7030; J7050; J7620

== ENCOUNTER 2019-03-18 12:08 | Inpatient (IN) | payer MEDICARE, OTHER ==
--- NOTE | 2019-03-18 12:43 | ER Document Report ---
ED Medical Screen (RME) - General Chief Complaint: Respiratory Distress Stated Complaint: SOB Time Seen by Provider: 03/18/19 12:37 Primary Care Provider: MARK HAILE MD [Primary Care Provider] - Follow up as needed Information source: Patient Notes: This 63-year-old female with history of asthma pneumonia and COPD presents to the emergency department today with increased difficulty breathing. Reports she has been using her nebulizer without relief of symptoms. Patient was just released from the hospital after having pneumonia. She reports she felt better Saturday but yesterday she started having difficulty breathing. No complaints of fever vomiting diarrhea. Patient left hand is swollen. She is not sure why it swollen. No erythema or warmth. Patient denies chest pain but reports rib pain. She reports that was evaluated when she was admitted for possible fracture but she does not think her rib was fractured. I have greeted and performed a rapid initial assessment of this patient. A comprehensive ED assessment and evaluation of the patient, analysis of test results and completion of the medical decision making process will be conducted by additional ED providers. Dictation of this chart was performed using voice recognition software; therefore, there may be some unintended grammatical errors. TRAVEL OUTSIDE OF THE [place] IN LAST 30 DAYS: No - Related Data Allergies/Adverse Reactions: pregabalin [From Lyrica] Allergy (Unknown, Verified 03/08/19 22:52) trazodone HCl [From Desyrel] Allergy (Unknown, Verified 03/08/19 22:52) cephalexin monohydrate [From Keflex] Adverse Reaction (Verified 03/08/19 22:52) nausea, vomiting erythromycin base [Erythromycin Base] Adverse Reaction (Verified 03/08/19 22:52) nausea, vomiting gabapentin Adverse Reaction (Verified 03/08/19 22:52) Nausea guaifenesin [From Entex T] Adverse Reaction (Verified 03/08/19 22:52) Nausea pseudoephedrine [From Entex T] Adverse Reaction (Verified 03/08/19 22:52) Nausea Past Medical History - Past Medical History Cardiac Medical History: Reports: Hx Congestive Heart Failure, Hx Hypercholesterolemia, Hx Hypertension Denies: Hx Coronary Artery Disease - HIGH CHOLESTEROL, Hx Heart Attack Pulmonary Medical History: Reports: Hx Asthma, Hx Bronchitis, Hx COPD, Hx Pneumonia - 08/09 Denies: Hx Tuberculosis Neurological Medical History: Reports: Hx Cerebrovascular Accident - 7 YEARS AGO HAS "MEMORY ISSUES" "STROKE X4, last one 2005. Denies: Hx Seizures Endocrine Medical History: Reports: Hx Hypothyroidism. Denies: Hx Diabetes Mellitus Type 1, Hx Diabetes Mellitus Type 2, Hx Hyperthyroidism Renal/ Medical History: Reports: Hx Renal Insufficiency. Denies: Hx End Stage Renal Disease, Hx Peritoneal Dialysis GI Medical History: Denies: Hx Cirrhosis, Hx Hepatitis Musculoskeltal Medical History: Reports Hx Arthritis, Denies Hx Fibromyalgia, Denies Hx Gout Skin Medical History: Denies Hx Eczema, Denies Hx Psoriasis Psychiatric Medical History: Reports: Hx Depression Infectious Medical History: Denies: Hx Hepatitis, Hx HIV Past Surgical History: Reports: Hx Dilation and Curettage, Hx Hysterectomy, Hx Tubal Ligation - Immunizations Hx Diphtheria, Pertussis, Tetanus Vaccination: Yes History of Influenza Vaccine for 04/2017 - 09/2017 Season: No Physical Exam - Vital signs Vitals: Temp Pulse Resp BP Pulse Ox 97.9 F 109 H 17 129/61 H 95 03/18/19 12:35 03/18/19 12:35 03/18/19 12:35 03/18/19 12:35 03/18/19 12:35 Course - Vital Signs Vital signs: Temp Pulse Resp BP Pulse Ox 97.9 F 109 H 17 129/61 H 95 03/18/19 12:35 03/18/19 12:35 03/18/19 12:35 03/18/19 12:35 03/18/19 12:35 - Laboratory Result Diagrams: 03/18/19 12:27 03/18/19 12:27 Doctor's Discharge - Discharge Referrals: MARK HAILE MD [Primary Care Provider] - Follow up as needed
[2019-03-18 12:50] LABS: ABSOLUTE BASOPHILS # (AUTO) 0.1 10^3/uL (0.0-0.2); ABSOLUTE EOSINOPHILS # (AUTO) 0.7 10^3/uL (0.0-0.6); ABSOLUTE LYMPHOCYTES (AUTO) 1.7 10^3/uL (0.5-4.7); ABSOLUTE MONOCYTES (AUTO) 1.4 10^3/uL (0.1-1.4); ABSOLUTE NEUT (AUTO) 14.8 10^3/uL (1.7-8.2); BASOPHILS % (AUTO) 0.5 % (0-2); EOSINOPHILS % (AUTO) 3.6 % (0-6); HEMATOCRIT 27.6 % (36.0-47.0); HEMOGLOBIN 9.1 g/dL (12.0-15.5); LYMPHOCYTES % (AUTO) 9.1 % (13-45); MEAN CORPUSCULAR HEMOGLOBIN 29.5 pg (27.0-33.4); MEAN CORPUSCULAR VOLUME 89 fl (80-97); MONOCYTES % (AUTO) 7.5 % (3-13); PLATELET COUNT 305 10^3/uL (150-450); RED BLOOD COUNT 3.09 10^6/uL (3.72-5.28); RED CELL DISTRIBUTION WIDTH 15.1 % (11.5-14.0); SEGMENTED NEUTROPHILS % (AUTO) 79.3 % (42-78); TOTAL CELLS COUNTED % (AUTO) 100 %; WHITE BLOOD COUNT 18.6 10^3/uL (4.0-10.5)
[2019-03-18 13:04] LABS: ALBUMIN 3.3 g/dL (3.5-5.0); ALKALINE PHOSPHATASE 77 U/L (38-126); ANION GAP 8 (5-19); ASPARTATE AMINO TRANSFERASE 27 U/L (14-36); BILIRUBIN,DIRECT 0.3 mg/dL (0.0-0.4); BILIRUBIN,TOTAL 0.4 mg/dL (0.2-1.3); BLOOD UREA NITROGEN 38 mg/dL (7-20); CALCIUM 9.6 mg/dL (8.4-10.2); CARBON DIOXIDE 29 mmol/L (22-30); CHLORIDE 102 mmol/L (98-107); CREATINE KINASE 160 U/L (30-135); GLUCOSE 114 mg/dL (75-110); POTASSIUM 4.3 mmol/L (3.6-5.0); TOTAL PROTEIN 6.3 g/dL (6.3-8.2)
--- NOTE | 2019-03-18 13:06 | ER Document Report ---
ED Respiratory Problem - General Chief Complaint: Respiratory Distress Stated Complaint: SOB Time Seen by Provider: 03/18/19 12:37 Primary Care Provider: MARK HAILE MD [Primary Care Provider] - Follow up as needed Notes: Patient brought in by EMS for shortness of breath and difficulty breathing. Patient was just in this hospital, treated for COPD and pneumonia. She was admitted about 11 days ago and stayed for about 8 or 9 days before being discharged just a couple of days ago. She was given 3-day supply of Levaquin and also given a dose pack of steroids to take. She is using home nebulizers, but not on any oxygen and she is having more difficulty breathing. She is had a cough, primarily dry. She feels short of breath. Has not had any fever. Has not noted any significant swelling of the lower extremities. She is been told in the past that she has congestive heart failure, but no other heart disease. EMS found the patient to have an O2 sat of 87 to 88% on r room air. EMS gave the patient 125 mg of Solu-Medrol IV and an DuoNeb nebulizer treatment. Patient has maintained her oxygen saturation at about 93 on 2 L of O2. TRAVEL OUTSIDE OF THE [place] IN LAST 30 DAYS: No - Related Data Allergies/Adverse Reactions: pregabalin [From Lyrica] Allergy (Unknown, Verified 03/08/19 22:52) trazodone HCl [From Desyrel] Allergy (Unknown, Verified 03/08/19 22:52) cephalexin monohydrate [From Keflex] Adverse Reaction (Verified 03/08/19 22:52) nausea, vomiting erythromycin base [Erythromycin Base] Adverse Reaction (Verified 03/08/19 22:52) nausea, vomiting gabapentin Adverse Reaction (Verified 03/08/19 22:52) Nausea guaifenesin [From Entex T] Adverse Reaction (Verified 03/08/19 22:52) Nausea pseudoephedrine [From Entex T] Adverse Reaction (Verified 03/08/19 22:52) Nausea Past Medical History - General Information source: Patient - Social History Smoking Status: Former Smoker - Stopped 20 years ago. Family History: Reviewed & Not Pertinent, Hypertension Patient has suicidal ideation: No Patient has homicidal ideation: No - Past Medical History Cardiac Medical History: Reports: Hx Congestive Heart Failure, Hx Hypercholesterolemia, Hx Hypertension Pulmonary Medical History: Reports: Hx Asthma, Hx Bronchitis, Hx COPD, Hx Pneumonia - 08/09 Neurological Medical History: Reports: Hx Cerebrovascular Accident - 7 YEARS AGO HAS "MEMORY ISSUES" "STROKE X4, last one 2005 Endocrine Medical History: Reports: Hx Hypothyroidism Renal/ Medical History: Reports: Hx Renal Insufficiency Musculoskeletal Medical History: Reports Hx Arthritis Psychiatric Medical History: Reports: Hx Depression Past Surgical History: Reports: Hx Dilation and Curettage, Hx Hysterectomy, Hx Tubal Ligation - Immunizations Hx Diphtheria, Pertussis, Tetanus Vaccination: Yes Review of Systems - Review of Systems Notes: REVIEW OF SYSTEMS: CONSTITUTIONAL : Denies fever. EENT: Denies eye, ear, nose or mouth or throat pain or other symptoms. CARDIOVASCULAR: Denies chest pain. No significant swelling or edema of either lower leg. RESPIRATORY: See HPI. GASTROINTESTINAL: Denies abdominal pain or nausea, vomiting, or diarrhea. GENITOURINARY: Denies difficulty or painful urinating, urinary frequency, blood in urine. MUSCULOSKELETAL: Denies back or neck pain. Denies joint pain or swelling. SKIN: Denies rash or skin lesions. NEUROLOGICAL: Denies LOC or altered mental status. Denies headache. Denies sensory loss or motor deficits. ALL OTHER SYSTEMS REVIEWED AND NEGATIVE. Physical Exam - Vital signs Vitals: Resp 14 03/18/19 12:16 Interpretation: Normal Notes: PHYSICAL EXAMINATION: GENERAL: Well-appearing, in no acute distress. O2 sat is 93% on 2 L. She was in the upper 80s by EMS at home. HEAD: Atraumatic, normocephalic. EYES: Pupils equal round and reactive to light, extraocular movements intact. ENT: oropharynx clear without exudates. Moist mucous membranes. Voice sounds hoarse. No difficulty with the airway, however. NECK: Normal range of motion, supple. LUNGS: Breath sounds clear and equal bilaterally. HEART: Regular rate and rhythm without murmurs. Heart rate about 108 at bedside by me. ABDOMEN: Soft, nontender. No guarding or rebound. No masses. BACK: No tenderness throughout entire back. EXTREMITIES: Normal range of motion without pain. No peripheral edema. NEUROLOGICAL: Normal speech, gait not tested. Normal sensory, motor, and reflex exams. Awake, alert, and oriented x3. Cranial nerves normal. PSYCH: Normal mood, normal affect. SKIN: Warm, dry, no rashes. Course - Re-evaluation Re-evalutation: 03/18/19 13:46 Patient is currently on oxygen at 2 L and her O2 sat is 93%. Chest x-ray shows continuing pneumonia, more so on the right than on the left. - Vital Signs Vital signs: Temp Pulse Resp BP Pulse Ox 97.9 F 109 H 17 129/61 H 95 03/18/19 12:35 03/18/19 12:35 03/18/19 12:35 03/18/19 12:35 03/18/19 12:35 - Laboratory Result Diagrams: 03/18/19 12:27 03/18/19 12:27 Laboratory results interpreted by me: 03/18/19 03/18/19 12:27 12:27 WBC 18.6 H RBC 3.09 L Hgb 9.1 L Hct 27.6 L RDW 15.1 H Lymph % (Auto) 9.1 L Absolute Neuts (auto) 14.8 H Absolute Eos (auto) 0.7 H Seg Neutrophils % 79.3 H BUN 38 H Creatinine 1.76 H Est GFR ( Amer) 35 L Est GFR (MDRD) Non-Af 29 L Glucose 114 H Creatine Kinase 160 H Albumin 3.3 L - Diagnostic Test Radiology results interpreted by me: 03/18/19 14:11 Chest x-ray shows residual bilateral pneumonia. Both areas of pneumonia have improved, according to the radiology reading, but are still present. - EKG Interpretation by Nv EKG shows normal: Sinus rhythm Rate: Tachycardia - At 108. Additional EKG results interpreted by me: 03/18/19 14:12 The EKG is otherwise normal. Discharge - Discharge Clinical Impression: Pneumonia, COPD exacerbation Condition: Stable Disposition: ADMITTED INPATIENT Admitting Provider: Lupe (Hospitalist) Unit Admitted: Medical Floor Referrals: MARK HAILE MD [Primary Care Provider] - Follow up as needed
--- NOTE | 2019-03-18 13:09 | EKG REPORT ---
SEVERITY:- OTHERWISE NORMAL ECG - SINUS TACHYCARDIA : Confirmed by: Earle Feldman MD 18-Mar-2019 13:08:21
[2019-03-18 13:14] LABS: CREATINE KINASE MB 1.25 ng/mL (<4.55)
[2019-03-18 13:16] LABS: TROPONIN I < 0.012 ng/mL
--- NOTE | 2019-03-18 13:21 | RADIOLOGY REPORT (SQ) ---
EXAM DESCRIPTION: CHEST SINGLE VIEW COMPLETED DATE/TIME: 03/18/2019 1:11 pm REASON FOR STUDY: diff breath hx pneumonia COMPARISON: 03/15/2019 NUMBER OF VIEWS: One view. TECHNIQUE: Single frontal radiographic view of the chest acquired. LIMITATIONS: None. FINDINGS: LUNGS AND PLEURA: Persistent right upper lobe airspace disease. Minimal infiltrate remain s in the left apex. No effusions. No pneumothorax. MEDIASTINUM AND HILAR STRUCTURES: No masses. Contour normal. HEART AND VASCULAR STRUCTURES: Heart normal in size. Normal vasculature. BONES: No acute findings. HARDWARE: None in the chest. OTHER: No other significant finding. IMPRESSION: Residual upper lobe infiltrates right greater than left. There has been improvement on the left. TECHNICAL DOCUMENTATION: JOB ID: [id number] [employer] All Rights Reserved Reading location - IP/workstation name: [email or web address]
[2019-03-18 13:57] LABS: VENOUS BLOOD BASE EXCESS 2.9 mmol/L; VENOUS BLOOD HCO3 28.8 mmol/L (20-32); VENOUS BLOOD PCO2 51.9 mmHg (35-63); VENOUS BLOOD PH 7.36 (7.30-7.42)
[2019-03-18] MEDS ORDERED: ACETAMINOPHEN 325 MG TABLET PO PRN (14:38)
[2019-03-18] MEDS ORDERED: PROMETHAZINE HCL 25 MG TABLET PO PRN (14:38)
[2019-03-18] MEDS ORDERED: TEMAZEPAM 15 MG CAPSULE PO PRN (14:38)
--- NOTE | 2019-03-18 14:38 | PDOC H&P ---
History of Present Illness Admission Date/PCP: MARK HAILE MD History of Present Illness: LEATHA ATKINS is a 63 year old female patient with multiple comorbidities eluding hypertension, hypothyroidism, 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 Of note patient discharged from this hospital 2 days ago after 11 days of hospitalization for the same complaint. When EMS found the patient patient was hypoxic saturating 87 to 88% on room air. She was given DuoNeb, Solu-Medrol 125 mg supplemental oxygen and brought to ER. Chest x-ray reported as improving bilateral pneumonia. She has leukocytosis of 18,000. Patient denies any fever, chills, chest pain but she endorses cough with productive of whitish sputum. No palpitation or diaphoresis. She does not have any nausea, vomiting or abdominal pain or diarrhea. When I see the patient she is in mild to moderate respiratory distress with bilateral diffuse wheezing. Past Medical History Cardiac Medical History: Reports: Congestive Heart Failure, Hyperlipidema, Hypertension Denies: Coronary Artery Disease - HIGH CHOLESTEROL, Myocardial Infarction Pulmonary Medical History: Reports: Asthma, Bronchitis, Chronic Obstructive Pulmonary Disease (COPD), Pneumonia - 08/09 Denies: Tuberculosis Neurological Medical History: Denies: Seizures Endocrine Medical History: Reports: Hypothyroidism Denies: Diabetes Mellitus Type 1, Diabetes Mellitus Type 2, Hyperthyroidism Renal/ Medical History: Denies: End Stage Renal Disease GI Medical History: Denies: Cirrhosis, Hepatitis Musculoskeltal Medical History: Reports: Arthritis Denies: Fibromyalgia, Gout Skin Medical History: Denies: Eczema, Psoriasis Psychiatric Medical History: Reports: Depression Hematology: Reports: Anemia Denies: Bleeding Tendencies Infectious Medical History: Denies: HIV Past Surgical History Past Surgical History: Reports: Hysterectomy, Tubal Ligation Social History Smoking Status: Former Smoker - Stopped 20 years ago. Frequency of Alcohol Use: None Hx Recreational Drug Use: No Drugs: None Hx Prescription Drug Abuse: No - Advance Directive Resuscitation Status: Full Code Family History Family History: Reviewed & Not Pertinent, Hypertension Parental Family History Reviewed: Yes Children Family History Reviewed: Yes Sibling(s) Family History Reviewed.: Yes Medication/Allergy Home Medications: Albuterol Sulfate [Proair HFA Inhalation Aerosol 8.5 gm MDI] 1 puff IH QIDP PRN 07/17/18 Atorvastatin Calcium [Lipitor 20 mg Tablet] 20 mg PO NOON 07/17/18 Levocetirizine Dihydrochloride [Xyzal] 5 mg PO DAILY 07/17/18 Levothyroxine Sodium 200 mcg PO QAM 07/17/18 Pnv No.95/Ferrous Fum/Folic AC [ Multivitamin Tablet] 1 each PO DAILY 07/17/18 Diphenoxylate HCl/Atropine [Lomotil 2.5-0.025 mg Tablet] 1 tab PO DAILYP PRN 07/27/18 Omeprazole 20 mg PO QHS 07/27/18 Azelastine HCl 1 spray NS BID 08/15/18 Alprazolam [Xanax 0.5 mg Tablet] 0.5 mg PO QID 11/06/18 Cyclobenzaprine HCl [Flexeril 10 mg Tablet] 1 tab PO BID PRN 11/06/18 Dicyclomine HCl [Bentyl 20 mg Tablet] 10 mg PO TID 11/06/18 Donepezil HCl 10 mg PO QHS 11/06/18 Eszopiclone [Lunesta] 2 mg PO QHS PRN 11/06/18 Fluoxetine HCl [Prozac 20 mg Capsule] 80 mg PO DAILY 11/06/18 Fluticasone Propionate [Flonase Nasal Walton 50 Mcg/Walton 16 gm] 1 spray NAREB DAILY 11/06/18 Fluticasone/Umeclidin/Vilanter [Trelegy 100-62.5-25 Mcg Ellipta 14 Dose/Dpi] 1 inh PO DAILY 11/06/18 Metolazone [Zaroxolyn 5 mg Tablet] 5 mg PO DAILY 11/06/18 Oxycodone HCl 15 mg PO QID 11/06/18 Primidone [Mysoline] 50 mg PO TID 11/06/18 Ramipril [Altace 2.5 mg Capsule] 2.5 mg PO QHS 11/06/18 Torsemide [Demadex 20 mg Tablet] 40 mg PO DAILY 11/06/18 Albuterol Sulfate [Ventolin 0.083% Neb 2.5 mg/3 mL Ampul] 2.5 mg NEB [id number] PRN 03/09/19 Ergocalciferol (Vitamin D2) [Drisdol 50,000 unit (1.25MG) Capsule] 50,000 unit PO [id number] 03/09/19 Menthol/Zinc Oxide [Calmoseptine Ointment] 1 applic TP ASDIR PRN 03/09/19 Potassium Chloride [Klor-Con M20] 20 meq PO DAILY 03/09/19 Ropinirole HCl [Requip 0.25 mg Tablet] 0.25 mg PO QHS 03/09/19 Guaifenesin [Mucinex Sr 600 mg Tablet.sa] 600 mg PO Q12 tablet.sa 03/16/19 Levofloxacin [Levaquin 750 mg Tablet] 750 mg PO QPM 3 Days #3 tablet 03/16/19 Methylprednisolone [Medrol Dosepack (4 mg/Tab) 21 Tab/Dosepak] 4 mg PO ASDIR PRN #21 tab.ds.pk 03/16/19 Torsemide [Demadex 20 mg Tablet] 20 mg PO BID tablet 03/16/19 Allergies/Adverse Reactions: pregabalin [From Lyrica] Allergy (Unknown, Verified 03/08/19 22:52) trazodone HCl [From Desyrel] Allergy (Unknown, Verified 03/08/19 22:52) cephalexin monohydrate [From Keflex] Adverse Reaction (Verified 03/08/19 22:52) nausea, vomiting erythromycin base [Erythromycin Base] Adverse Reaction (Verified 03/08/19 22:52) nausea, vomiting gabapentin Adverse Reaction (Verified 03/08/19 22:52) Nausea guaifenesin [From Entex T] Adverse Reaction (Verified 03/08/19 22:52) Nausea pseudoephedrine [From Entex T] Adverse Reaction (Verified 03/08/19 22:52) Nausea Review of Systems Constitutional: ABSENT: chills, fever(s), headache(s), weight gain, weight loss Eyes: ABSENT: visual disturbances Ears: ABSENT: hearing changes Cardiovascular: ABSENT: chest pain, dyspnea on exertion, edema, orthropnea, palpitations Respiratory: PRESENT: cough, dyspnea Gastrointestinal: ABSENT: abdominal pain, constipation, diarrhea, hematemesis, hematochezia, nausea, vomiting Genitourinary: ABSENT: dysuria, hematuria Musculoskeletal: ABSENT: joint swelling Integumentary: ABSENT: rash, wounds Neurological: ABSENT: abnormal gait, abnormal speech, confusion, dizziness, focal weakness, syncope Psychiatric: ABSENT: anxiety, depression, homidical ideation, suicidal ideation Endocrine: ABSENT: cold intolerance, heat intolerance, polydipsia, polyuria Hematologic/Lymphatic: ABSENT: easy bleeding, easy bruising Physical Exam Vital Signs: Temp Pulse Resp BP Pulse Ox 97.9 F 109 H 17 129/61 H 95 03/18/19 12:35 03/18/19 12:35 03/18/19 12:35 03/18/19 12:35 03/18/19 12:35 General appearance: PRESENT: mild distress Head exam: PRESENT: atraumatic Eye exam: PRESENT: conjunctiva pink Respiratory exam: PRESENT: crackles, wheezes Cardiovascular exam: PRESENT: RRR. ABSENT: diastolic murmur, rubs, systolic murmur GI/Abdominal exam: PRESENT: normal bowel sounds, soft. ABSENT: distended, guarding, mass, organolmegaly, rebound, tenderness Neurological exam: PRESENT: alert, awake Results Laboratory Results: 03/18/19 12:27 03/18/19 12:27 03/18/19 03/18/19 03/18/19 12:27 12:27 12:27 WBC 18.6 H RBC 3.09 L Hgb 9.1 L Hct 27.6 L MCV 89 MCH 29.5 MCHC 33.0 RDW 15.1 H Plt Count 305 Seg Neutrophils % 79.3 H VBG pH 7.36 VBG pCO2 51.9 VBG HCO3 28.8 VBG Base Excess 2.9 Sodium 139.2 Potassium 4.3 Chloride 102 Carbon Dioxide 29 Anion Gap 8 BUN 38 H Creatinine 1.76 H Est GFR ( Amer) 35 L Glucose 114 H Calcium 9.6 Total Bilirubin 0.4 AST 27 Alkaline Phosphatase 77 Total Protein 6.3 Albumin 3.3 L 03/18/19 03/18/19 03/18/19 12:27 12:27 12:27 Creatine Kinase 160 H CK-MB (CK-2) 1.25 Troponin I < 0.012 NT-Pro-B Natriuret Pep 2010 H Impressions: Chest X-Ray 03/18/19 12:43 IMPRESSION: Residual upper lobe infiltrates right greater than left. There has been improvement on the left. Assessment and Plan - Diagnosis (1) Acute hypoxemic respiratory failure Is this a current diagnosis for this admission?: Yes Plan: Most probably due to COPD exacerbation. (2) COPD exacerbation Is this a current diagnosis for this admission?: Yes Plan: Continue supplemental oxygen. , Solu-Medrol, bronchodilators and IV Levaquin. (3) Hypothyroidism (acquired) Is this a current diagnosis for this admission?: Yes Plan: Continue Synthroid (4) Hypertension Qualifiers: Hypertension type: essential hypertension Qualified Code(s): I10 - Esse ntial (primary) hypertension Is this a current diagnosis for this admission?: Yes Plan: Continue home medication (5) Hyperlipidemia Qualifiers: Hyperlipidemia type: unspecified Qualified Code(s): E78.5 - Hyperlipidemia, unspecified Is this a current diagnosis for this admission?: Yes Plan: Continue home medication (6) Chronic kidney disease, stage IV (severe) Is this a current diagnosis for this admission?: Yes Plan: We will avoid nephrotoxic agents. Her creatinine is at its baseline. (7) Morbid obesity with BMI of 45.0-49.9, adult Is this a current diagnosis for this admission?: Yes Plan: Lifestyle modification advised.
[2019-03-18] MEDS ORDERED: METHYLPREDNISOLONE INJ 40 MG/1 ML SDV IV ONE (14:42)
[2019-03-18] MEDS ORDERED: TIOTROPIUM BROMIDE DPI 5 CAP/KIT (18 MCG/CAP) IH ONE (14:44)
[2019-03-18] MEDS: LEVOFLOXACIN 750 MG/D5W RTU 750 MG/150 ML RTUPB IV SCH (16:50)
[2019-03-18] MEDS ORDERED: DICYCLOMINE HCL 10 MG CAPSULE PO PRN (17:48)
[2019-03-18] MEDS ORDERED: ZINC OXIDE TOP PRN (17:48)
[2019-03-18] MEDS ORDERED: CYCLOBENZAPRINE HCL 10 MG TABLET PO PRN (17:48)
[2019-03-18] MEDS ORDERED: MENTHOL TOP PRN (17:48)
[2019-03-18] MEDS ORDERED: (PENDING PHARMACY ID) (Azelastine Hcl [Azelastine Hcl] 1 SPRAY) NASL SCH (18:00)
[2019-03-18] MEDS ORDERED: (PENDING PHARMACY ID) (Duloxetine Hcl [Duloxetine Hcl] 60 MG) PO SCH (18:00)
[2019-03-18] MEDS: DOCUSATE SODIUM 100 MG/10 ML UDC PO SCH ×2 (18:29→18:30)
[2019-03-18] MEDS ORDERED: FLUTICASONE/UMECLIDIN/VILANTER 100-62.5-25 MCG/DOSE IH SCH (19:00)
[2019-03-18] MEDS ORDERED: FLUTICASONE NASAL SPRAY 50 MCG/SPRY 120 SPRAY/16 GM NASL SCH (19:00)
[2019-03-18] MEDS ORDERED: ERGOCALCIFEROL (VITAMIN D2) 50000 UNIT (1.25 MG) CAPSULE PO SCH (19:00)
[2019-03-18] MEDS: IPRATROPIUM/ALBUTEROL 0.5-2.5 MG/3 ML AMPUL NEB SCH (20:27)
[2019-03-18] MEDS: RAMIPRIL 2.5 MG CAPSULE PO SCH (21:20)
[2019-03-18] MEDS: TORSEMIDE 20 MG TABLET PO SCH (21:21)
[2019-03-18] MEDS: FAMOTIDINE 20 MG TABLET PO SCH (21:21)
[2019-03-18] MEDS: ATORVASTATIN CALCIUM 20 MG TABLET PO SCH (21:21)
[2019-03-18] MEDS: PRIMIDONE 50 MG TABLET PO SCH (21:21)
[2019-03-18] MEDS: OXYCODONE HCL IR 5 MG TABLET PO SCH ×2 (21:22→23:24)
[2019-03-18] MEDS: FLUTICASONE NASAL SPRAY 50 MCG/SPRY 120 SPRAY/16 GM NASL SCH (21:23)
[2019-03-18] MEDS: FONDAPARINUX SODIUM INJ 7.5 MG/0.6 ML DISP.SYRIN SUBCUT SCH (21:24)
[2019-03-18] MEDS: FLUTICASONE/UMECLIDIN/VILANTER 100-62.5-25 MCG/DOSE IH SCH (21:30)
[2019-03-18] MEDS: ZOLPIDEM TARTRATE 5 MG TABLET PO SCH (21:30)
[2019-03-18] MEDS: ALPRAZOLAM 0.5 MG TABLET PO SCH ×2 (21:30→21:31)
[2019-03-18] MEDS: DULOXETINE HCL 30 MG CAPSULE.DR PO SCH (21:30)
[2019-03-18] MEDS ORDERED: (PENDING PHARMACY ID) (Donepezil Hcl [Aricept] 10 MG) PO SCH (22:00)
[2019-03-18] MEDS ORDERED: (PENDING PHARMACY ID) (Guaifenesin [Mucinex] 600 MG) PO SCH (22:00)
[2019-03-18] MEDS ORDERED: HEPARIN SOD (PORCINE) 5,000 UNIT/ML 1 ML VIAL SUBCUT SCH (22:00)
[2019-03-19] MEDS ORDERED: NORMAL SALINE 1000 ML 1,000 ML IV PRN (01:54)
[2019-03-19] MEDS ORDERED: POTASSIUM CHLORIDE 20 MEQ/50 ML RTU IV SCH (02:00)
[2019-03-19] MEDS ORDERED: CALCIUM GLUCONATE 1000 MG/10 ML INJ IV ONE (02:00)
[2019-03-19] MEDS: IPRATROPIUM/ALBUTEROL 0.5-2.5 MG/3 ML AMPUL NEB SCH ×4 (02:08→19:59)
[2019-03-19 06:08] LABS: ABSOLUTE EOSINOPHILS # (AUTO) 0.2 10^3/uL (0.0-0.6); ABSOLUTE LYMPHOCYTES (AUTO) 1.7 10^3/uL (0.5-4.7); ABSOLUTE NEUT (AUTO) 10.8 10^3/uL (1.7-8.2); BASOPHILS % (AUTO) 0.3 % (0-2); EOSINOPHILS % (AUTO) 1.6 % (0-6); HEMATOCRIT 25.1 % (36.0-47.0); HEMOGLOBIN 8.3 g/dL (12.0-15.5); LYMPHOCYTES % (AUTO) 12.3 % (13-45); MEAN CORPUSCULAR HEMOGLOBIN 29.5 pg (27.0-33.4); MEAN CORPUSCULAR HGB CONC 33.2 g/dL (32.0-36.0); MEAN CORPUSCULAR VOLUME 89 fl (80-97); MONOCYTES % (AUTO) 7.2 % (3-13); PLATELET COUNT 272 10^3/uL (150-450); RED BLOOD COUNT 2.83 10^6/uL (3.72-5.28); RED CELL DISTRIBUTION WIDTH 14.9 % (11.5-14.0); SEGMENTED NEUTROPHILS % (AUTO) 78.6 % (42-78); TOTAL CELLS COUNTED % (AUTO) 100 %; WHITE BLOOD COUNT 13.8 10^3/uL (4.0-10.5)
[2019-03-19] MEDS: LEVOTHYROXINE SODIUM 0.1 MG TABLET PO SCH (06:08)
[2019-03-19] MEDS: OXYCODONE HCL IR 5 MG TABLET PO SCH ×4 (06:08→23:08)
[2019-03-19 06:28] LABS: ANION GAP 8 (5-19); BLOOD UREA NITROGEN 42 mg/dL (7-20); CALCIUM 9.1 mg/dL (8.4-10.2); CARBON DIOXIDE 27 mmol/L (22-30); CHLORIDE 101 mmol/L (98-107); GLUCOSE 88 mg/dL (75-110); POTASSIUM 4.3 mmol/L (3.6-5.0)
[2019-03-19] MEDS: LEVOFLOXACIN 750 MG/D5W RTU 750 MG/150 ML RTUPB IV SCH (09:10)
[2019-03-19] MEDS: DOCUSATE SODIUM 100 MG/10 ML UDC PO SCH ×2 (09:12→17:04)
[2019-03-19] MEDS: POTASSIUM CHLORIDE 10 MEQ CAPSULE.ER PO SCH (09:12)
[2019-03-19] MEDS: DULOXETINE HCL 30 MG CAPSULE.DR PO SCH (09:13)
[2019-03-19] MEDS: ALPRAZOLAM 0.5 MG TABLET PO SCH ×4 (09:13→23:08)
[2019-03-19] MEDS: CETIRIZINE 5 MG TABLET PO SCH (09:13)
[2019-03-19] MEDS: PANTOPRAZOLE SODIUM 20 MG TABLET.DR PO SCH (09:13)
[2019-03-19] MEDS: TORSEMIDE 20 MG TABLET PO SCH ×2 (09:13→17:15)
[2019-03-19] MEDS: FAMOTIDINE 20 MG TABLET PO SCH ×2 (09:13→23:11)
[2019-03-19] MEDS: PRENATAL VITAMIN W DHA CAPSULE PO SCH (09:13)
[2019-03-19] MEDS: METOLAZONE 5 MG TABLET PO SCH (09:14)
[2019-03-19] MEDS: MAGNESIUM OXIDE 400 MG TABLET PO SCH (09:14)
[2019-03-19] MEDS: PRIMIDONE 50 MG TABLET PO SCH ×3 (09:18→17:15)
[2019-03-19] MEDS: FONDAPARINUX SODIUM INJ 7.5 MG/0.6 ML DISP.SYRIN SUBCUT SCH (09:19)
[2019-03-19] MEDS: FLUTICASONE/UMECLIDIN/VILANTER 100-62.5-25 MCG/DOSE IH SCH (09:21)
[2019-03-19] MEDS: TIOTROPIUM BROMIDE DPI 5 CAP/KIT (18 MCG/CAP) IH SCH (09:21)
[2019-03-19] MEDS: FLUTICASONE NASAL SPRAY 50 MCG/SPRY 120 SPRAY/16 GM NASL SCH (09:22)
[2019-03-19] MEDS ORDERED: (PENDING PHARMACY ID) (Potassium Chloride [Klor-Con M20] 20 MEQ) PO SCH (10:00)
[2019-03-19] MEDS: ATORVASTATIN CALCIUM 20 MG TABLET PO SCH (11:29)
[2019-03-19] MEDS: BENZOCAINE/MENTHOL SORE THROAT LOZENGE BUCCAL PRN ×3 (12:00→23:13)
--- NOTE | 2019-03-19 18:28 | PDOC PROGRESS REPORT ---
Subjective Progress Note for:: 03/19/19 Subjective:: No adverse events overnight. When asked her how she is doing, she says "not very good." She looks very comfortable and was reading some sort of adult novel. She is not coughing or wheezing. She is been afebrile. She asked for morphine because she says she "hurts all over." Reason For Visit: ACUTE HYPOXEMIC RESPIRATORY FAILURE,COPD EXAC Physical Exam Vital Signs: Temp Pulse Resp BP Pulse Ox 98.1 F 100 16 111/58 L 99 03/19/19 16:00 03/19/19 16:00 03/19/19 16:00 03/19/19 16:00 03/19/19 16:00 Intake & Output 03/18/19 03/19/19 03/20/19 06:59 06:59 06:59 Intake Total 1580 1255 Output Total 825 1050 Balance 755 205 Weight 125.1 kg General appearance: PRESENT: no acute distress, cooperative, disheveled, morbidly obese Respiratory exam: PRESENT: clear to auscultation allison, symmetrical, unlabored. ABSENT: accessory muscle use, chest wall tenderness, crackles, prolonged expiratory phas, rhonchi, tachypnea, wheezes Cardiovascular exam: PRESENT: RRR, +S1, +S2 Pulses: PRESENT: normal carotid pulses Vascular exam: PRESENT: normal capillary refill GI/Abdominal exam: PRESENT: normal bowel sounds, soft. ABSENT: distended, guarding, rebound, tenderness Extremities exam: ABSENT: pedal edema Musculoskeletal exam: PRESENT: normal inspection. ABSENT: deformity Neurological exam: PRESENT: alert, awake, oriented to person, oriented to place, oriented to time, oriented to situation Psychiatric exam: PRESENT: anxious Skin exam: PRESENT: dry, warm Results Laboratory Results: 03/19/19 05:21 03/19/19 05:21 03/19/19 03/19/19 05:21 05:21 WBC 13.8 H RBC 2.83 L Hgb 8.3 L Hct 25.1 L MCV 89 MCH 29.5 MCHC 33.2 RDW 14.9 H Plt Count 272 Seg Neutrophils % 78.6 H Sodium 136.4 L Potassium 4.3 Chloride 101 Carbon Dioxide 27 Anion Gap 8 BUN 42 H Creatinine 2.20 H Est GFR ( Amer) 27 L Glucose 88 Calcium 9.1 03/18/19 03/18/19 03/18/19 12:27 12:27 12:27 Creatine Kinase 160 H CK-MB (CK-2) 1.25 Troponin I < 0.012 NT-Pro-B Natriuret Pep 2010 H Impressions: Chest X-Ray 03/18/19 12:43 IMPRESSION: Residual upper lobe infiltrates right greater than left. There has been improvement on the left. Assessment and Plan - Diagnosis (1) Acute hypoxemic respiratory failure Is this a current diagnosis for this admission?: Yes Plan: I suspect this is resolved. We will take her off oxygen and see how she does. (2) COPD exacerbation Is this a current diagnosis for this admission?: Yes Plan: Resolved. We will take her off steroids. (3) Chronic kidney disease, stage IV (severe) Is this a current diagnosis for this admission?: Yes Plan: Creatinine actually bumped a little bit today. Encouraging p.o. hydration. We will recheck it in the morning. (4) Morbid obesity with BMI of 45.0-49.9, adult Is this a current diagnosis for this admission?: Yes Plan: Strongly encouraged lifestyle modification. - Time Time Spent with patient: 15-24 minutes
[2019-03-19] MEDS: RAMIPRIL 2.5 MG CAPSULE PO SCH (23:08)
[2019-03-19] MEDS: ZOLPIDEM TARTRATE 5 MG TABLET PO SCH (23:10)
[2019-03-20] MEDS ORDERED: ZOLPIDEM TARTRATE 5 MG TABLET PO ONE (00:15)
[2019-03-20] MEDS: IPRATROPIUM/ALBUTEROL 0.5-2.5 MG/3 ML AMPUL NEB SCH ×4 (02:00→19:56)
[2019-03-20] MEDS: OXYCODONE HCL IR 5 MG TABLET PO SCH ×4 (05:28→23:20)
[2019-03-20] MEDS: LEVOTHYROXINE SODIUM 0.1 MG TABLET PO SCH (05:28)
[2019-03-20] MEDS: MAGNESIUM OXIDE 400 MG TABLET PO SCH (10:49)
[2019-03-20] MEDS: POTASSIUM CHLORIDE 10 MEQ CAPSULE.ER PO SCH (10:49)
[2019-03-20] MEDS: PANTOPRAZOLE SODIUM 20 MG TABLET.DR PO SCH (10:49)
[2019-03-20] MEDS: TORSEMIDE 20 MG TABLET PO SCH ×2 (10:49→18:02)
[2019-03-20] MEDS: FAMOTIDINE 20 MG TABLET PO SCH ×2 (10:49→22:01)
[2019-03-20] MEDS: DOCUSATE SODIUM 100 MG/10 ML UDC PO SCH ×2 (10:49→17:59)
[2019-03-20] MEDS: DULOXETINE HCL 30 MG CAPSULE.DR PO SCH (10:49)
[2019-03-20] MEDS: METOLAZONE 5 MG TABLET PO SCH (10:50)
[2019-03-20] MEDS: ALPRAZOLAM 0.5 MG TABLET PO SCH ×4 (10:50→22:01)
[2019-03-20] MEDS: LEVOFLOXACIN 750 MG/D5W RTU 750 MG/150 ML RTUPB IV SCH (10:50)
[2019-03-20] MEDS: CETIRIZINE 5 MG TABLET PO SCH (10:50)
[2019-03-20] MEDS: PRENATAL VITAMIN W DHA CAPSULE PO SCH (10:50)
[2019-03-20] MEDS: FLUTICASONE NASAL SPRAY 50 MCG/SPRY 120 SPRAY/16 GM NASL SCH (10:52)
[2019-03-20] MEDS: FLUTICASONE/UMECLIDIN/VILANTER 100-62.5-25 MCG/DOSE IH SCH (10:53)
[2019-03-20] MEDS: PRIMIDONE 50 MG TABLET PO SCH ×3 (10:53→18:02)
[2019-03-20] MEDS: TIOTROPIUM BROMIDE DPI 5 CAP/KIT (18 MCG/CAP) IH SCH (10:54)
[2019-03-20] MEDS: FONDAPARINUX SODIUM INJ 7.5 MG/0.6 ML DISP.SYRIN SUBCUT SCH (10:54)
[2019-03-20] MEDS: ATORVASTATIN CALCIUM 20 MG TABLET PO SCH (11:57)
[2019-03-20] MEDS: GUAIFENESIN 600 MG TABLET.SA PO SCH ×2 (11:57→22:01)
[2019-03-20] MEDS: PREDNISONE 20 MG TABLET PO SCH (11:57)
[2019-03-20] MEDS: BENZOCAINE/MENTHOL SORE THROAT LOZENGE BUCCAL PRN (15:30)
--- NOTE | 2019-03-20 17:37 | PDOC PROGRESS REPORT ---
Subjective Progress Note for:: 03/20/19 Subjective:: No adverse events overnight. No new complaints. Vital signs been stable. She was complaining of being very weak and her said she is not ambulated well in a very long time because of her history of stroke. Reason For Visit: ACUTE HYPOXEMIC RESPIRATORY FAILURE,COPD EXAC Physical Exam Vital Signs: Temp Pulse Resp BP Pulse Ox 98.6 F 96 20 109/42 L 95 03/20/19 11:26 03/20/19 14:00 03/20/19 14:00 03/20/19 11:26 03/20/19 14:00 Intake & Output 03/19/19 03/20/19 03/21/19 06:59 06:59 06:59 Intake Total 1580 2880 1074 Output Total 825 3000 Balance 755 -120 1074 Weight 125.1 kg 126.7 kg General appearance: PRESENT: no acute distress, cooperative, disheveled, morbidly obese Respiratory exam: PRESENT: Faint wheezes in the right base, unlabored. ABSENT: accessory muscle use, chest wall tenderness, crackles, prolonged expiratory phas, rhonchi, tachypnea Cardiovascular exam: PRESENT: RRR, +S1, +S2 Pulses: PRESENT: normal carotid pulses Vascular exam: PRESENT: normal capillary refill GI/Abdominal exam: PRESENT: normal bowel sounds, soft. ABSENT: distended, guarding, rebound, tenderness Extremities exam: ABSENT: pedal edema Musculoskeletal exam: PRESENT: normal inspection. ABSENT: deformity Neurological exam: PRESENT: alert, awake, oriented to person, oriented to place, oriented to time, oriented to situation Psychiatric exam: PRESENT: anxious Skin exam: PRESENT: dry, warm Results Laboratory Results: 03/19/19 05:21 03/19/19 05:21 03/18/19 03/18/19 03/18/19 12:27 12:27 12:27 Creatine Kinase 160 H CK-MB (CK-2) 1.25 Troponin I < 0.012 NT-Pro-B Natriuret Pep 2010 H Impressions: Chest X-Ray 03/18/19 12:43 IMPRESSION: Residual upper lobe infiltrates right greater than left. There has been improvement on the left. Assessment and Plan - Diagnosis (1) Acute hypoxemic respiratory failure Is this a current diagnosis for this admission?: Yes Plan: Resolved (2) COPD exacerbation Is this a current diagnosis for this admission?: Yes Plan: I have stopped her steroids yesterday because she was not wheezing but now she is a little bit of wheezing again some I put her back on some prednisone. We will continue bronchodilator treatments. (3) Chronic kidney disease, stage IV (severe) Is this a current diagnosis for this admission?: Yes Plan: We will repeat her creatinine in the morning to see if it has progressed. (4) Morbid obesity with BMI of 45.0-49.9, adult Is this a current diagnosis for this admission?: Yes Plan: Strongly encouraged lifestyle modification. I watched her well physical therapy was evaluating her and it was somewhat difficult to watch her try to walk. Her says she has not ambulated well in a very long time. We will follow-up physical therapy's recommendations. - Time Time Spent with patient: 15-24 minutes
[2019-03-20] MEDS: RAMIPRIL 2.5 MG CAPSULE PO SCH (22:01)
[2019-03-20] MEDS: ZOLPIDEM TARTRATE 5 MG TABLET PO SCH (22:03)
[2019-03-21] MEDS: IPRATROPIUM/ALBUTEROL 0.5-2.5 MG/3 ML AMPUL NEB SCH ×4 (02:07→20:27)
[2019-03-21 05:13] LABS: ANION GAP 7 (5-19); BLOOD UREA NITROGEN 41 mg/dL (7-20); CALCIUM 8.3 mg/dL (8.4-10.2); CARBON DIOXIDE 30 mmol/L (22-30); CHLORIDE 100 mmol/L (98-107); GLUCOSE 97 mg/dL (75-110); POTASSIUM 3.8 mmol/L (3.6-5.0)
[2019-03-21] MEDS: LEVOTHYROXINE SODIUM 0.1 MG TABLET PO SCH (05:41)
[2019-03-21] MEDS: OXYCODONE HCL IR 5 MG TABLET PO SCH ×4 (05:42→23:19)
[2019-03-21] MEDS: LEVOFLOXACIN 750 MG/D5W RTU 750 MG/150 ML RTUPB IV SCH (10:36)
[2019-03-21] MEDS: FAMOTIDINE 20 MG TABLET PO SCH ×2 (10:39→21:44)
[2019-03-21] MEDS: PANTOPRAZOLE SODIUM 20 MG TABLET.DR PO SCH (10:39)
[2019-03-21] MEDS: PRENATAL VITAMIN W DHA CAPSULE PO SCH (10:39)
[2019-03-21] MEDS: POTASSIUM CHLORIDE 10 MEQ CAPSULE.ER PO SCH (10:39)
[2019-03-21] MEDS: PREDNISONE 20 MG TABLET PO SCH (10:39)
[2019-03-21] MEDS: GUAIFENESIN 600 MG TABLET.SA PO SCH ×2 (10:39→21:44)
[2019-03-21] MEDS: DOCUSATE SODIUM 100 MG/10 ML UDC PO SCH ×2 (10:39→17:54)
[2019-03-21] MEDS: TORSEMIDE 20 MG TABLET PO SCH ×2 (10:39→17:51)
[2019-03-21] MEDS: ALPRAZOLAM 0.5 MG TABLET PO SCH ×4 (10:39→21:44)
[2019-03-21] MEDS: DULOXETINE HCL 30 MG CAPSULE.DR PO SCH (10:39)
[2019-03-21] MEDS: METOLAZONE 5 MG TABLET PO SCH (10:39)
[2019-03-21] MEDS: MAGNESIUM OXIDE 400 MG TABLET PO SCH (10:40)
[2019-03-21] MEDS: FONDAPARINUX SODIUM INJ 7.5 MG/0.6 ML DISP.SYRIN SUBCUT SCH (10:40)
[2019-03-21] MEDS: PRIMIDONE 50 MG TABLET PO SCH ×3 (10:40→17:51)
[2019-03-21] MEDS: CETIRIZINE 5 MG TABLET PO SCH (10:40)
[2019-03-21] MEDS: FLUTICASONE/UMECLIDIN/VILANTER 100-62.5-25 MCG/DOSE IH SCH (10:41)
[2019-03-21] MEDS: TIOTROPIUM BROMIDE DPI 5 CAP/KIT (18 MCG/CAP) IH SCH (10:41)
[2019-03-21] MEDS: FLUTICASONE NASAL SPRAY 50 MCG/SPRY 120 SPRAY/16 GM NASL SCH (10:41)
[2019-03-21] MEDS: ATORVASTATIN CALCIUM 20 MG TABLET PO SCH (12:04)
--- NOTE | 2019-03-21 16:13 | PDOC PROGRESS REPORT ---
Subjective Progress Note for:: 03/21/19 Subjective:: No adverse events overnight. No new complaints. Vital signs been stable. She has not been requiring oxygen. She feels like the congestion in her chest is breaking up and she is able to clear her secretions better. Reason For Visit: ACUTE HYPOXEMIC RESPIRATORY FAILURE,COPD EXAC Physical Exam Vital Signs: Temp Pulse Resp BP Pulse Ox 98.4 F 102 H 18 119/71 92 03/21/19 12:46 03/21/19 14:41 03/21/19 14:41 03/21/19 12:51 03/21/19 14:41 Intake & Output 03/20/19 03/21/19 03/22/19 06:59 06:59 06:59 Intake Total 2880 1634 150 Output Total 3000 1850 Balance -120 -216 150 Weight 126.7 kg 125.8 kg General appearance: PRESENT: no acute distress, cooperative, disheveled, morbidly obese Respiratory exam: PRESENT: clear to auscultation allison, symmetrical, unlabored. ABSENT: accessory muscle use, chest wall tenderness, crackles, prolonged expiratory phas, rhonchi, tachypnea, wheezes Cardiovascular exam: PRESENT: RRR, +S1, +S2 Pulses: PRESENT: normal carotid pulses Vascular exam: PRESENT: normal capillary refill GI/Abdominal exam: PRESENT: normal bowel sounds, soft. ABSENT: distended, guarding, rebound, tenderness Extremities exam: ABSENT: pedal edema Musculoskeletal exam: PRESENT: normal inspection. ABSENT: deformity Neurological exam: PRESENT: alert, awake, oriented to person, oriented to place, oriented to time, oriented to situation Psychiatric exam: PRESENT: anxious Skin exam: PRESENT: dry, warm Results Laboratory Results: 03/19/19 05:21 03/21/19 04:25 03/21/19 04:25 Sodium 137.1 Potassium 3.8 Chloride 100 Carbon Dioxide 30 Anion Gap 7 BUN 41 H Creatinine 1.86 H Est GFR ( Amer) 33 L Glucose 97 Calcium 8.3 L 03/18/19 03/18/19 03/18/19 12:27 12:27 12:27 Creatine Kinase 160 H CK-MB (CK-2) 1.25 Troponin I < 0.012 NT-Pro-B Natriuret Pep 2010 H Impressions: Chest X-Ray 03/18/19 12:43 IMPRESSION: Residual upper lobe infiltrates right greater than left. There has been improvement on the left. Assessment and Plan - Diagnosis (1) Acute hypoxemic respiratory failure Is this a current diagnosis for this admission?: Yes Plan: Resolved (2) COPD exacerbation Is this a current diagnosis for this admission?: Yes Plan: She started wheezing a little bit again yesterday and we put her back on some prednisone and she is done well with that. Continue with bronchodilators, antibiotics, and some Mucinex. If she is doing like this tomorrow she should be able to be discharged home with home health. We talked about her going to a rehab center but she did not want to do that because she says she feels like she does just as well with home physical therapy, and this was a sentiment that her echoed. (3) Chronic kidney disease, stage IV (severe) Is this a current diagnosis for this admission?: Yes Plan: Creatinine back in its usual range today (4) Morbid obesity with BMI of 45.0-49.9, adult Is this a current diagnosis for this admission?: Yes Plan: Strongly encouraged lifestyle modification. I watched her well physical therapy was evaluating her and it was somewhat difficult to watch her try to walk. Her says she has not ambulated well in a very long time. We will follow-up physical therapy's recommendations. - Time Time Spent with patient: 15-24 minutes
[2019-03-21] MEDS: RAMIPRIL 2.5 MG CAPSULE PO SCH (21:44)
[2019-03-21] MEDS: ZOLPIDEM TARTRATE 5 MG TABLET PO SCH (21:46)
[2019-03-22] MEDS: IPRATROPIUM/ALBUTEROL 0.5-2.5 MG/3 ML AMPUL NEB SCH ×4 (01:45→19:53)
[2019-03-22] MEDS: LEVOTHYROXINE SODIUM 0.1 MG TABLET PO SCH (05:20)
[2019-03-22] MEDS: OXYCODONE HCL IR 5 MG TABLET PO SCH ×4 (05:20→23:43)
[2019-03-22 06:11] LABS: ANION GAP 10 (5-19); BLOOD UREA NITROGEN 36 mg/dL (7-20); CALCIUM 7.8 mg/dL (8.4-10.2); CARBON DIOXIDE 29 mmol/L (22-30); CHLORIDE 99 mmol/L (98-107); GLUCOSE 92 mg/dL (75-110); POTASSIUM 3.3 mmol/L (3.6-5.0)
[2019-03-22] MEDS: CETIRIZINE 5 MG TABLET PO SCH (10:25)
[2019-03-22] MEDS: PANTOPRAZOLE SODIUM 20 MG TABLET.DR PO SCH (10:25)
[2019-03-22] MEDS: DULOXETINE HCL 30 MG CAPSULE.DR PO SCH (10:25)
[2019-03-22] MEDS: PRENATAL VITAMIN W DHA CAPSULE PO SCH (10:25)
[2019-03-22] MEDS: PREDNISONE 20 MG TABLET PO SCH (10:25)
[2019-03-22] MEDS: POTASSIUM CHLORIDE 10 MEQ CAPSULE.ER PO SCH (10:25)
[2019-03-22] MEDS: ALPRAZOLAM 0.5 MG TABLET PO SCH ×4 (10:25→21:58)
[2019-03-22] MEDS: MAGNESIUM OXIDE 400 MG TABLET PO SCH (10:26)
[2019-03-22] MEDS: FAMOTIDINE 20 MG TABLET PO SCH ×2 (10:26→21:58)
[2019-03-22] MEDS: GUAIFENESIN 600 MG TABLET.SA PO SCH ×2 (10:26→21:58)
[2019-03-22] MEDS: TORSEMIDE 20 MG TABLET PO SCH ×2 (10:26→18:10)
[2019-03-22] MEDS: PRIMIDONE 50 MG TABLET PO SCH ×3 (10:26→18:11)
[2019-03-22] MEDS: METOLAZONE 5 MG TABLET PO SCH (10:26)
[2019-03-22] MEDS: FONDAPARINUX SODIUM INJ 7.5 MG/0.6 ML DISP.SYRIN SUBCUT SCH (10:26)
[2019-03-22] MEDS: FLUTICASONE NASAL SPRAY 50 MCG/SPRY 120 SPRAY/16 GM NASL SCH (10:27)
[2019-03-22] MEDS: DOCUSATE SODIUM 100 MG/10 ML UDC PO SCH ×2 (10:27→18:10)
[2019-03-22] MEDS: LEVOFLOXACIN 750 MG/D5W RTU 750 MG/150 ML RTUPB IV SCH (10:27)
[2019-03-22] MEDS: FLUTICASONE/UMECLIDIN/VILANTER 100-62.5-25 MCG/DOSE IH SCH (10:27)
[2019-03-22] MEDS: TIOTROPIUM BROMIDE DPI 5 CAP/KIT (18 MCG/CAP) IH SCH (10:33)
[2019-03-22] MEDS: ATORVASTATIN CALCIUM 20 MG TABLET PO SCH (12:26)
--- NOTE | 2019-03-22 14:21 | PDOC PROGRESS REPORT ---
Subjective Progress Note for:: 03/22/19 Subjective:: No adverse events overnight. No new complaints. Vital signs been stable. Cough has been productive. No fevers. Reason For Visit: ACUTE HYPOXEMIC RESPIRATORY FAILURE,COPD EXAC Physical Exam Vital Signs: Temp Pulse Resp BP Pulse Ox 98.1 F 105 H 18 117/58 L 91 L 03/22/19 11:43 03/22/19 14:01 03/22/19 14:01 03/22/19 11:43 03/22/19 14:01 Intake & Output 03/21/19 03/22/19 03/23/19 06:59 06:59 06:59 Intake Total 1634 1150 375 Output Total 1850 525 800 Balance -216 625 -425 Weight 125.8 kg 118.2 kg General appearance: PRESENT: no acute distress, cooperative, disheveled, morbidly obese Respiratory exam: PRESENT: clear to auscultation allison, symmetrical, unlabored. ABSENT: accessory muscle use, chest wall tenderness, crackles, prolonged expiratory phas, rhonchi, tachypnea, wheezes Cardiovascular exam: PRESENT: RRR, +S1, +S2 Pulses: PRESENT: normal carotid pulses Vascular exam: PRESENT: normal capillary refill GI/Abdominal exam: PRESENT: normal bowel sounds, soft. ABSENT: distended, guarding, rebound, tenderness Extremities exam: ABSENT: pedal edema Musculoskeletal exam: PRESENT: normal inspection. ABSENT: deformity Neurological exam: PRESENT: alert, awake, oriented to person, oriented to place, oriented to time, oriented to situation Psychiatric exam: PRESENT: anxious Skin exam: PRESENT: dry, warm Results Laboratory Results: 03/19/19 05:21 03/22/19 05:00 03/22/19 05:00 Sodium 137.6 Potassium 3.3 L Chloride 99 Carbon Dioxide 29 Anion Gap 10 BUN 36 H Creatinine 1.79 H Est GFR ( Amer) 34 L Glucose 92 Calcium 7.8 L 03/18/19 03/18/19 03/18/19 12:27 12:27 12:27 Creatine Kinase 160 H CK-MB (CK-2) 1.25 Troponin I < 0.012 NT-Pro-B Natriuret Pep 2010 H Impressions: Chest X-Ray 03/18/19 12:43 IMPRESSION: Residual upper lobe infiltrates right greater than left. There has been improvement on the left. Assessment and Plan - Diagnosis (1) Acute hypoxemic respiratory failure Is this a current diagnosis for this admission?: Yes Plan: Resolved (2) COPD exacerbation Is this a current diagnosis for this admission?: Yes Plan: Improving with steroids, bronchodilators, antibiotics, and expectorants. She needs help at home because she cannot get around very well. Her is sick today and so we will plan on her going home tomorrow. We talked about her going to a rehab center but she did not want to do that because she says she feels like she does just as well with home physical therapy, and this was a sentiment that her echoed. (3) Chronic kidney disease, stage IV (severe) Is this a current diagnosis for this admission?: Yes Plan: Creatinine back in its usual range (4) Morbid obesity with BMI of 45.0-49.9, adult Is this a current diagnosis for this admission?: Yes Plan: Strongly encouraged lifestyle modification. I watched her well physical therapy was evaluating her and it was somewhat difficult to watch her try to walk. Her says she has not ambulated well in a very long time. We will follow-up physical therapy's recommendations. - Time Time Spent with patient: 15-24 minutes
[2019-03-22] MEDS: RAMIPRIL 2.5 MG CAPSULE PO SCH (21:57)
[2019-03-22] MEDS: OXYCODONE-ACETAMINOPHEN 5-325 MG TABLET PO PRN (21:58)
[2019-03-22] MEDS: ZOLPIDEM TARTRATE 5 MG TABLET PO SCH (22:59)
[2019-03-23] MEDS: IPRATROPIUM/ALBUTEROL 0.5-2.5 MG/3 ML AMPUL NEB SCH ×2 (02:02→07:56)
[2019-03-23] MEDS: OXYCODONE HCL IR 5 MG TABLET PO SCH (05:51)
[2019-03-23] MEDS: LEVOTHYROXINE SODIUM 0.1 MG TABLET PO SCH (05:52)
[2019-03-23 06:00] LABS: ANION GAP 10 (5-19); BLOOD UREA NITROGEN 33 mg/dL (7-20); CALCIUM 7.4 mg/dL (8.4-10.2); CARBON DIOXIDE 29 mmol/L (22-30); CHLORIDE 99 mmol/L (98-107); GLUCOSE 87 mg/dL (75-110); POTASSIUM 3.4 mmol/L (3.6-5.0)
[2019-03-23] MEDS: OXYCODONE-ACETAMINOPHEN 5-325 MG TABLET PO PRN (08:30)
[2019-03-23] MEDS ORDERED: POTASSIUM CHLORIDE 10 MEQ CAPSULE.ER PO ONE (10:30)
[2019-03-23] MEDS: LEVOFLOXACIN 750 MG/D5W RTU 750 MG/150 ML RTUPB IV SCH (10:44)
[2019-03-23] MEDS: FONDAPARINUX SODIUM INJ 7.5 MG/0.6 ML DISP.SYRIN SUBCUT SCH (10:46)
[2019-03-23] MEDS: DOCUSATE SODIUM 100 MG/10 ML UDC PO SCH (10:47)
[2019-03-23] MEDS: DULOXETINE HCL 30 MG CAPSULE.DR PO SCH (10:49)
[2019-03-23] MEDS: PREDNISONE 20 MG TABLET PO SCH (10:49)
[2019-03-23] MEDS: PANTOPRAZOLE SODIUM 20 MG TABLET.DR PO SCH (10:49)
[2019-03-23] MEDS: CETIRIZINE 5 MG TABLET PO SCH (10:50)
[2019-03-23] MEDS: GUAIFENESIN 600 MG TABLET.SA PO SCH (10:50)
[2019-03-23] MEDS: FAMOTIDINE 20 MG TABLET PO SCH (10:50)
[2019-03-23] MEDS: METOLAZONE 5 MG TABLET PO SCH (10:50)
[2019-03-23] MEDS: FLUTICASONE NASAL SPRAY 50 MCG/SPRY 120 SPRAY/16 GM NASL SCH (10:50)
[2019-03-23] MEDS: MAGNESIUM OXIDE 400 MG TABLET PO SCH (10:50)
[2019-03-23] MEDS: TORSEMIDE 20 MG TABLET PO SCH (10:50)
[2019-03-23] MEDS: PRENATAL VITAMIN W DHA CAPSULE PO SCH (10:50)
[2019-03-23] MEDS: ALPRAZOLAM 0.5 MG TABLET PO SCH (10:51)
[2019-03-23] MEDS: TIOTROPIUM BROMIDE DPI 5 CAP/KIT (18 MCG/CAP) IH SCH (10:52)
[2019-03-23] MEDS: FLUTICASONE/UMECLIDIN/VILANTER 100-62.5-25 MCG/DOSE IH SCH (10:52)
[2019-03-23] MEDS: PRIMIDONE 50 MG TABLET PO SCH (10:53)
[2019-03-23 11:38] VITALS: BP 102/41
[2019-03-23] MEDS: POTASSIUM CHLORIDE 10 MEQ CAPSULE.ER PO SCH (12:30)
--- NOTE | 2019-03-23 16:28 | PDOC DISCHARGE SUMMARY ---
General - Admit/Disc Date/PCP Admission Date/Primary Care Provider: 03/18/19 14:50 MARK HAILE MD Discharge Date: 03/23/19 - Discharge Diagnosis (1) Acute hypoxemic respiratory failure Is this a current diagnosis for this admission?: Yes Summary: Resolved with treatment of her COPD. She is on room air at rest. When she gets up and tries to walk, which is difficult for her, her sats initially dropped but then they come up to the upper 90s around 100%. (2) COPD exacerbation Is this a current diagnosis for this admission?: Yes Summary: Responded to steroids, antibiotics, and bronchodilators. She will complete some prednisone and Levaquin at home. (3) Chronic kidney disease, stage IV (severe) Is this a current diagnosis for this admission?: Yes Summary: At one point creatinine bumped up a little bit but then came back down in his usual range and stayed there (4) Morbid obesity with BMI of 45.0-49.9, adult Is this a current diagnosis for this admission?: Yes Summary: Strongly encouraged lifestyle modification - Additional Information Resuscitation Status: Full Code Discharge Diet: Cardiac, Diabetic Discharge Activity: Activity As Tolerated, Supervised Activity Prescriptions: Prednisone [Deltasone 20 mg Tablet] 40 mg PO DAILY #10 tablet Levofloxacin [Levaquin 500 mg Tablet] 500 mg PO DAILY #5 tablet Home Medications: Albuterol Sulfate [Proair HFA Inhalation Aerosol 8.5 gm MDI] 1 puff IH Q6HP PRN 03/18/19 Albuterol Sulfate [Ventolin 0.083% Neb 2.5 mg/3 mL Ampul] 1 vial NEB RTQ4HP PRN 03/18/19 Alprazolam [Xanax 0.5 mg Tablet] 0.5 mg PO QID 03/18/19 Atorvastatin Calcium [Lipitor 20 mg Tablet] 20 mg PO NOON 03/18/19 Azelastine HCl 1 spray NASL BID 03/18/19 Cyclobenzaprine HCl [Flexeril 10 mg Tablet] 10 mg PO BIDP PRN 03/18/19 Dicyclomine HCl [Bentyl 10 mg Capsule] 10 mg PO TIDP PRN 03/18/19 Diphenoxylate HCl/Atropine [Lomotil 2.5-0.025 mg Tablet] 1 tab PO DAILYP PRN 03/18/19 Donepezil HCl [Aricept] 10 mg PO QHS 03/18/19 Duloxetine HCl 60 mg PO DAILY 03/18/19 Ergocalciferol (Vitamin D2) [Drisdol 50,000 unit (1.25MG) Capsule] 50,000 unit PO [id number] 03/18/19 Eszopiclone [Lunesta] 2 mg PO QHS 03/18/19 Fluticasone Propionate [Flonase Nasal [place] 50 Mcg/[place] 16 gm] 1 spray NASL DAILY 03/18/19 Fluticasone/Umeclidin/Vilanter [Trelegy 100-62.5-25 Mcg Ellipta 14 Dose/Dpi] 1 puff IH DAILY 03/18/19 Fondaparinux Sodium [Arixtra Inj 7.5 mg/0.6 ml Disp. Syrin] 7.5 mg SQ DAILY 03/18/19 Guaifenesin [Mucinex] 600 mg PO Q12 03/18/19 Levocetirizine Dihydrochloride [Xyzal] 5 mg PO DAILY 03/18/19 Levothyroxine Sodium [Synthroid] 200 mcg PO Q6AM 03/18/19 Magnesium Oxide [Mag-Ox 400 mg Tablet] 400 mg PO DAILY 03/18/19 Menthol/Zinc Oxide [Calmoseptine Ointment] 1 applic TOP TIDP PRN 03/18/19 Metolazone [Zaroxolyn 5 mg Tablet] 5 mg PO DAILY 03/18/19 Omeprazole 20 mg PO DAILY 03/18/19 Oxycodone HCl 15 mg PO Q6 03/18/19 Potassium Chloride [Klor-Con M20] 20 meq PO DAILY 03/18/19 Vitamin [-U Multiple Vitamin Capsule] 1 cap PO DAILY 03/18/19 Primidone [Mysoline 50 mg Tablet] 50 mg PO TID 03/18/19 Ramipril [Altace 2.5 mg Capsule] 2.5 mg PO QHS 03/18/19 Torsemide [Demadex 20 mg Tablet] 20 mg PO BID 03/18/19 Levofloxacin [Levaquin 500 mg Tablet] 500 mg PO DAILY #5 tablet 03/23/19 Prednisone [Deltasone 20 mg Tablet] 40 mg PO DAILY #10 tablet 03/23/19 Promethazine HCl [Phenergan 25 mg Tablet] 25 mg PO Q4HP PRN tablet 03/23/19 History of Present Illness History of Present Illness: LEATHA ATKINS is a 63 year old female patient with multiple comorbidities eluding hypertension, hypothyroidism, 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 Of note patient discharged from this hospital 2 days ago after 11 days of hospitalization for the same complaint. When EMS found the patient patient was hypoxic saturating 87 to 88% on room air. She was given DuoNeb, Solu-Medrol 125 mg supplemental oxygen and brought to ER. Chest x-ray reported as improving bilateral pneumonia. She has leukocytosis of 18,000. Patient denies any fever, chills, chest pain but she endorses cough with productive of whitish sputum. No palpitation or diaphoresis. She does not have any nausea, vomiting or abdominal pain or diarrhea. When I see the patient she is in mild to moderate respiratory distress with bilateral diffuse wheezing. Hospital Course Hospital Course: She responded well to steroids, antibiotics, and bronchodilators. She was able to be weaned from oxygen successfully. At one point she complained about some diarrhea but all we have resolved from her with solid stool. We did test for C. difficile and it course was negative. We ambulated her with physical therapy and it was difficult for her because of her medical history and deconditioning, and she did drop for a few seconds into the low 80s but the rest of the time while she was ambulated with physical therapy her SPO2 was close to 100%. She will complete a course of prednisone and Levaquin at home. She did not want to go to a rehab center but would agree to resume physical therapy. Those arrangements were made. Her labs and examination were reassuring and she was discharged in good condition. Physical Exam Vital Signs: Temp Pulse Resp BP Pulse Ox 98.5 F 91 18 102/41 L 93 03/23/19 11:36 03/23/19 11:36 03/23/19 11:36 03/23/19 11:36 03/23/19 11:36 Intake & Output 03/22/19 03/23/19 03/24/19 06:59 06:59 06:59 Intake Total 1150 825 Output Total 418 2325 Balance 625 -1500 Weight 118.2 kg 116.6 kg General appearance: PRESENT: no acute distress, cooperative, disheveled, morbidly obese Respiratory exam: PRESENT: clear to auscultation allison, symmetrical, unlabored. ABSENT: accessory muscle use, chest wall tenderness, crackles, prolonged ex piratory phas, rhonchi, tachypnea, wheezes Cardiovascular exam: PRESENT: RRR, +S1, +S2 Pulses: PRESENT: normal carotid pulses Vascular exam: PRESENT: normal capillary refill GI/Abdominal exam: PRESENT: normal bowel sounds, soft. ABSENT: distended, guarding, rebound, tenderness Extremities exam: ABSENT: pedal edema Musculoskeletal exam: PRESENT: normal inspection. ABSENT: deformity Neurological exam: PRESENT: alert, awake, oriented to person, oriented to place, oriented to time, oriented to situation Psychiatric exam: PRESENT: anxious Skin exam: PRESENT: dry, warm Results Laboratory Results: 03/19/19 05:21 03/23/19 05:18 03/23/19 05:18 Sodium 137.6 Potassium 3.4 L Chloride 99 Carbon Dioxide 29 Anion Gap 10 BUN 33 H Creatinine 1.79 H Est GFR ( Amer) 34 L Glucose 87 Calcium 7.4 L 03/18/19 12:27 Blood Blood Culture - Final NO GROWTH IN 5 DAYS 03/18/19 03/18/19 03/18/19 12:27 12:27 12:27 Creatine Kinase 160 H CK-MB (CK-2) 1.25 Troponin I < 0.012 NT-Pro-B Natriuret Pep 2010 H Impressions: Chest X-Ray 03/18/19 12:43 IMPRESSION: Residual upper lobe infiltrates right greater than left. There has been improvement on the left. Qualifiers - * PATIENT BEING DISCHARGED WITH ANY OF THE FOLLOWING DIAGNOSIS: No Acute Heart Failure - Is this a Heart Failure Patient?: No Plan Time Spent: Greater than 30 Minutes
== END 2019-03-23 13:43 | disposition home health service (06) | DRG 189 ==
LOC: ER 12:08 → EH 14:50 → 5 17:35
PROVIDERS: ADMIT Internal Medicine; ATTEND Internal Medicine
DX: J96.01 Acute respiratory failure with hypoxia (principal); J44.1 Chronic obstructive pulmonary disease with (acute) exacerbation; I13.0 Hypertensive heart and chronic kidney disease with heart failure and stage 1 through stage 4 chronic kidney disease, or unspecified chronic kidney disease; N18.4 Chronic kidney disease, stage 4 (severe); Z68.42 Body mass index [BMI] 45.0-49.9, adult; I50.9 Heart failure, unspecified; E78.00 Pure hypercholesterolemia, unspecified; E03.9 Hypothyroidism, unspecified; E66.01 Morbid (severe) obesity due to excess calories; I69.311 Memory deficit following cerebral infarction; Z79.51 Long term (current) use of inhaled steroids; Z79.2 Long term (current) use of antibiotics; Z79.52 Long term (current) use of systemic steroids; Z79.899 Other long term (current) drug therapy
CPT/HCPCS: 36415; 51702; 71045; 80048; 80053; 82550; 82553; 82803; 83880; 84484; 85025; 87040; 87493; 93005; 93010; 94660; 99285; J1652; J1956; J2920; J3490; J7512; J7620

== ENCOUNTER 2019-03-27 17:10 | Inpatient (IN) | payer MEDICARE, OTHER ==
[2019-03-27 17:43] LABS: HEMATOCRIT 28.9 % (36.0-47.0); HEMOGLOBIN 9.7 g/dL (12.0-15.5); MEAN CORPUSCULAR HEMOGLOBIN 29.7 pg (27.0-33.4); MEAN CORPUSCULAR HGB CONC 33.5 g/dL (32.0-36.0); MEAN CORPUSCULAR VOLUME 89 fl (80-97); PLATELET COUNT 370 10^3/uL (150-450); RED BLOOD COUNT 3.25 10^6/uL (3.72-5.28); RED CELL DISTRIBUTION WIDTH 16.4 % (11.5-14.0); WHITE BLOOD COUNT 16.5 10^3/uL (4.0-10.5)
[2019-03-27 17:54] LABS: ALBUMIN 3.8 g/dL (3.5-5.0); ALKALINE PHOSPHATASE 79 U/L (38-126); ANION GAP 13 (5-19); ASPARTATE AMINO TRANSFERASE 39 U/L (14-36); BILIRUBIN,DIRECT 0.4 mg/dL (0.0-0.4); BILIRUBIN,TOTAL 0.5 mg/dL (0.2-1.3); BLOOD UREA NITROGEN 48 mg/dL (7-20); CALCIUM 8.2 mg/dL (8.4-10.2); CARBON DIOXIDE 25 mmol/L (22-30); CHLORIDE 97 mmol/L (98-107); CREATINE KINASE 317 U/L (30-135); GLUCOSE 124 mg/dL (75-110); POTASSIUM 4.9 mmol/L (3.6-5.0); TOTAL PROTEIN 6.8 g/dL (6.3-8.2)
[2019-03-27 17:57] LABS: APPEARANCE,URINE SLIGHTLY-CLOUDY; BILIRUBIN,URINE MODERATE (NEGATIVE); GLUCOSE, URINE NEGATIVE (NEGATIVE); KETONES,URINE NEGATIVE (NEGATIVE); LEUKOCYTE ESTERASE,URINE MODERATE (NEGATIVE); NITRITE,URINE NEGATIVE (NEGATIVE); PROTEIN,URINE NEGATIVE (NEGATIVE); URINE SPECIFIC GRAVITY 1.018; UROBILINOGEN,URINE NEGATIVE mg/dL (<2.0)
[2019-03-27 17:59] LABS: COLOR,URINE DARK YELLOW
[2019-03-27 18:03] LABS: ABSOLUTE LYMPHOCYTES# (MANUAL) 1.3 10^3/uL (0.5-4.7); ABSOLUTE MONOCYTES # (MANUAL) 0.7 10^3/uL (0.1-1.4); ANISOCYTOSIS 1+; BAND NEUTROPHILS % (MANUAL) 1 % (3-5); BASOPHILS % (MANUAL) 0 % (0-2); EOSINOPHILS % (MANUAL) 0 % (0-6); LYMPHOCYTES % (MANUAL) 8 % (13-45); MONOCYTES % (MANUAL) 4 % (3-13); SEGMENTED NEUTROPHILS % (MAN) 87 % (42-78); TOTAL CELLS COUNTED 100
[2019-03-27 18:04] LABS: PLATELET COMMENT ADEQUATE
[2019-03-27 18:05] LABS: CREATINE KINASE MB 10.3 ng/mL (<4.55); TROPONIN I 0.016 ng/mL
--- NOTE | 2019-03-27 18:28 | RADIOLOGY REPORT (SQ) ---
EXAM DESCRIPTION: CHEST SINGLE VIEW COMPLETED DATE/TIME: 03/27/2019 6:08 pm REASON FOR STUDY: t1 db COMPARISON: 03/16/2019 EXAM PARAMETERS: NUMBER OF VIEWS: One view. TECHNIQUE: Single frontal radiographic view of the chest acquired. RADIATION DOSE: NA LIMITATIONS: None. FINDINGS: LUNGS AND PLEURA: Persistent mild upper lobe opacification. No new infiltrate, effusion, or mass. MEDIASTINUM AND HILAR STRUCTURES: No masses. Contour normal. HEART AND VASCULAR STRUCTURES: Heart normal in size. Normal vasculature. BONES: No acute findings. HARDWARE: None in the chest. OTHER: No other significant finding. IMPRESSION: Persistent right upper lobe opacification, pneumonia versus chronic change. TECHNICAL DOCUMENTATION: JOB ID: [id number] [employer]- All Rights Reserved Reading location - IP/workstation name: [email or web address]
[2019-03-27] MEDS ORDERED: IPRATROPIUM BROMIDE 0.02% NEB 0.5 MG/2.5 ML AMPUL NEB ONE (18:52)
[2019-03-27] MEDS ORDERED: ALBUTEROL SULFATE 0.083% NEB 2.5 MG/3 ML AMPUL NEB ONE (18:52)
[2019-03-27] MEDS ORDERED: METHYLPREDNISOLONE INJ 125 MG/2 ML SDV IV ONE (18:53)
[2019-03-27] MEDS ORDERED: NORMAL SALINE 1000 ML 1,000 ML IV SCH (19:00)
[2019-03-27] MEDS ORDERED: LORAZEPAM INJ 2 MG/1 ML VIAL IV ONE (20:07)
--- NOTE | 2019-03-27 21:02 | ER Document Report ---
ED Respiratory Problem - General Chief Complaint: Shortness Of Breath Stated Complaint: DIFFICULTY BREATHING Primary Care Provider: MARK HAILE MD [Primary Care Provider] - Follow up as needed Mode of Arrival: Medic Information source: Patient TRAVEL OUTSIDE OF THE [place] IN LAST 30 DAYS: No - HPI Patient complains to provider of: Chest pain, COPD, Short of breath Onset: This evening Duration: Worse/persistent Quality of pain: denies: No pain, Achy, Burning, Cramping, Dull, Fullness, Pressure, Sharp, Stabbing, Throbbing, Other Severity: Moderate Context: Hx asthma, Hx CHF, Hx COPD Short of Breath: Moderate Chest pain/discomfort: denies: Center, Constant, Heaviness, Intermittent, Left, Pain, Radiates to arm, Radiates to back, Radiates to jaw, Right, Tightness, Worse with deep breaths Cough: Productive At home treatment: Bronchodilators Associated symptoms: Short of breath, Other - recently admitted for pneumonia placed on levaquin and discharged 2 days ago Similar symptoms previously: Yes Notes: Note patient was recently discharged from the hospital with pneumonia has a history of CHF and COPD claims that she got acutely short of breath this morning. - Related Data Allergies/Adverse Reactions: pregabalin [From Lyrica] Allergy (Unknown, Verified 03/08/19 22:52) trazodone HCl [From Desyrel] Allergy (Unknown, Verified 03/08/19 22:52) cephalexin monohydrate [From Keflex] Adverse Reaction (Verified 03/08/19 22:52) nausea, vomiting erythromycin base [Erythromycin Base] Adverse Reaction (Verified 03/08/19 22:52) nausea, vomiting gabapentin Adverse Reaction (Verified 03/08/19 22:52) Nausea guaifenesin [From Entex T] Adverse Reaction (Verified 03/08/19 22:52) Nausea pseudoephedrine [From Entex T] Adverse Reaction (Verified 03/08/19 22:52) Nausea Past Medical History - Social History Smoking Status: Former Smoker Family History: Reviewed & Not Pertinent, Hypertension Patient has suicidal ideation: No Patient has homicidal ideation: No - Past Medical History Cardiac Medical History: Reports: Hx Congestive Heart Failure, Hx Hypercholesterolemia, Hx Hypertension Denies: Hx Coronary Artery Disease - HIGH CHOLESTEROL, Hx Heart Attack Pulmonary Medical History: Reports: Hx Asthma, Hx Bronchitis, Hx COPD, Hx Pneumonia - 08/09 Denies: Hx Tuberculosis Neurological Medical History: Reports: Hx Cerebrovascular Accident - 7 YEARS AGO HAS "MEMORY ISSUES" "STROKE X4, last one 2005. Denies: Hx Seizures Endocrine Medical History: Reports: Hx Hypothyroidism. Denies: Hx Diabetes Mellitus Type 1, Hx Diabetes Mellitus Type 2, Hx Hyperthyroidism Renal/ Medical History: Reports: Hx Renal Insufficiency. Denies: Hx End Stage Renal Disease, Hx Peritoneal Dialysis GI Medical History: Denies: Hx Cirrhosis, Hx Hepatitis Musculoskeletal Medical History: Reports Hx Arthritis, Denies Hx Fibromyalgia, Denies Hx Gout Skin Medical History: Denies Hx Eczema, Denies Hx Psoriasis Psychiatric Medical History: Reports: Hx Depression Infectious Medical History: Denies: Hx Hepatitis, Hx HIV Past Surgical History: Reports: Hx Dilation and Curettage, Hx Hysterectomy, Hx Tubal Ligation - Immunizations Hx Diphtheria, Pertussis, Tetanus Vaccination: Yes Review of Systems - Review of Systems Constitutional: denies: No symptoms reported, See HPI, Chills, Diaphoresis, Fever, Malaise, Weakness, Other, Weight gain, Weight loss, Recent illness EENT: denies: No symptoms reported, See HPI, Eye pain, Eye discharge, Blurred vision, Tearing, Double vision, Ear pain, Ear discharge, Nose pain, Nose congestion, Nose discharge, Sinus pressure, Sinus discharge, Throat pain, Difficulty swallowing, Throat swelling, Mouth pain, Mouth swelling, Dental problem, Vertigo, Other Cardiovascular: Dyspnea. denies: No symptoms reported, See HPI, Chest pain, Palpitations, Heart racing, Orthopnea, Syncope, Dizziness, Lightheaded, Edema, Other, Paroxysmal Nocturnal Dysp Respiratory: Cough, Short of breath, Wheezing Gastrointestinal: No symptoms reported Genitourinary: No symptoms reported Neurological/Psychological: No symptoms reported Physical Exam - Vital signs Vitals: Temp Pulse Resp BP 98.5 F 111 H 15 99/72 L 03/27/19 17:10 03/27/19 17:10 03/27/19 17:10 03/27/19 17:10 Notes: PHYSICAL EXAMINATION: GENERAL: Well-appearing, well-nourished and in no acute distress. HEAD: Atraumatic, normocephalic. EYES: Pupils equal round and reactive to light, extraocular movements intact, sclera anicteric, conjunctiva are normal. ENT: nares patent, oropharynx clear without exudates. Moist mucous membranes. NECK: Normal range of motion, supple without lymphadenopathy LUNGS: Wheezes and rales heard bilaterally. moderate respiratory distress HEART: Regular rate and rhythm without murmurs ABDOMEN: Soft, nontender, normoactive bowel sounds. No guarding, no rebound. No masses appreciated. EXTREMITIES: Normal range of motion, no pitting or edema. No cyanosis. no cords or masses in thighs or calves bilaterally. NEUROLOGICAL: No focal neurological deficits. Moves all extremities spontaneo usly and on command. PSYCH: Normal mood, normal affect. SKIN: Warm, Dry, normal turgor, no rashes or lesions noted. Course - Vital Signs Vital signs: Temp Pulse Resp BP Pulse Ox 99.1 F 111 H 12 104/65 86 L 03/27/19 18:01 03/27/19 17:10 03/27/19 19:00 03/27/19 18:01 03/27/19 19:00 - Laboratory Result Diagrams: 03/27/19 17:10 03/27/19 17:10 Laboratory results interpreted by me: 03/27/19 03/27/19 03/27/19 17:10 17:10 17:10 WBC 16.5 H RBC 3.25 L Hgb 9.7 L Hct 28.9 L RDW 16.4 H Seg Neuts % (Manual) 87 H Band Neutrophils % 1 L Lymphocytes % (Manual) 8 L Abs Neuts (Manual) 14.5 H ABG pO2 ABG O2 Saturation Sodium 134.8 L Chloride 97 L BUN 48 H Creatinine 3.42 H Est GFR ( Amer) 16 L Est GFR (MDRD) Non-Af 13 L Glucose 124 H Calcium 8.2 L AST 39 H Creatine Kinase 317 H CK-MB (CK-2) 10.30 H Urine Bilirubin Ur Leukocyte Esterase 03/27/19 03/27/19 17:40 21:15 WBC RBC Hgb Hct RDW Seg Neuts % (Manual) Band Neutrophils % Lymphocytes % (Manual) Abs Neuts (Manual) ABG pO2 137.8 H ABG O2 Saturation 98.6 H Sodium Chloride BUN Creatinine Est GFR ( Amer) Est GFR (MDRD) Non-Af Glucose Calcium AST Creatine Kinase CK-MB (CK-2) Urine Bilirubin MODERATE H Ur Leukocyte Esterase MODERATE H - Diagnostic Test Radiology reviewed: Image reviewed, Reports reviewed - EKG Interpretation by Me Rate: Tachycardia Rhythm: No: NSR, SVT, Arrthymia, A.Fib, A.Flutter, with a 2:1 Block, V.Tach, Torsades, V. Fib, MAT, PVC's, APC's, Other [place]/QRS: No: Right axis deviation, Left axis deviation, RBBB, LBBB, IVCD, LAHB/LAFB, LPHB/LPFB, Bifasicular block Voltage: No: Increased voltage, Consistant with LVH, Decreased voltage, Throughout, Limb leads P Waves: No: KUNAL, LAE, Absent, AV Dissociation, Other When compared to previous EKG there are: No significant change - Transfer of Care Notes: 03/27/19 21:00 Note patient sent despite albuterol Atrovent nebulization was still acutely short of breath of sats in the mid 80s therefore patient was placed on BiPAP wit h an I:E of 12/6; 12 rate; oxygen 50% ABG is pending at this time Discharge - Discharge Clinical Impression: COPD (chronic obstructive pulmonary disease), Pneumonia, Respiratory failure, Dehydration Condition: Stable Disposition: ADMITTED INPATIENT Admitting Provider: Ila (Hospitalist) Unit Admitted: Medical Floor Referrals: MARK HAILE MD [Primary Care Provider] - Follow up as needed
[2019-03-27 21:38] LABS: ARTERIAL BLOOD BASE EXCESS -2.2 mmol/L; ARTERIAL BLOOD H2CO3 1.29 mmol/L (1.05-1.35); ARTERIAL BLOOD HCO3 23.3 mmol/L (20-24); ARTERIAL BLOOD O2 SATURATION 98.6 % (94-98); ARTERIAL BLOOD PCO2 42.8 mmHg (35-45); ARTERIAL BLOOD PH 7.35 (7.35-7.45); ARTERIAL BLOOD PO2 137.8 mmHg (80-100); ARTERIAL BLOOD TOTAL CO2 24.6 mmol/L (21-25)
[2019-03-27 21:43] LABS: ARTERIAL BLOOD FIO2 50%
[2019-03-27] MEDS ORDERED: MEROPENEM 1 GM VIAL IV ONE (21:56)
[2019-03-27] MEDS ORDERED: MAGNESIUM HYDROXIDE SUSP 30 ML UDCUP PO PRN (23:25)
[2019-03-27] MEDS ORDERED: ACETAMINOPHEN 325 MG TABLET PO PRN (23:25)
[2019-03-27] MEDS ORDERED: NALBUPHINE HCL INJ 10 MG/1 ML AMPULE IV PRN (23:25)
[2019-03-27] MEDS ORDERED: HYDRALAZINE HCL INJ/PF 20 MG/1 ML SDV IV PRN (23:25)
[2019-03-27] MEDS ORDERED: MAG HYDROX/AL HYDROX/SIMETH SUSP 30 ML UDCUP PO PRN (23:25)
[2019-03-27] MEDS ORDERED: NICOTINE 21 MG/24 HR PATCH.TD24 TD PRN (23:25)
[2019-03-28] MEDS ORDERED: NALBUPHINE HCL INJ 10 MG/1 ML AMPULE IV PRN ×2 (00:04)
[2019-03-28] MEDS: LEVALBUTEROL HCL NEB 1.25 MG/3 ML AMPUL NEB SCH ×3 (00:16→15:57)
[2019-03-28] MEDS: IPRATROPIUM BROMIDE 0.02% NEB 0.5 MG/2.5 ML AMPUL NEB SCH ×3 (00:16→15:57)
[2019-03-28] MEDS ORDERED: ONDANSETRON HCL INJ/PF 4 MG/2 ML SDV IV PRN (00:41)
[2019-03-28] MEDS ORDERED: ONDANSETRON 4 MG TAB.RAPDIS PO PRN (00:41)
[2019-03-28] MEDS ORDERED: ZOLPIDEM TARTRATE 5 MG TABLET PO PRN (00:41)
[2019-03-28] MEDS: METHYLPREDNISOLONE INJ 40 MG/1 ML SDV IV SCH ×4 (01:08→17:00)
[2019-03-28] MEDS ORDERED: DEXTROSE 50%-WATER 25 GM/50 ML DISP.SYRIN IV PRN ×2 (02:40)
[2019-03-28] MEDS ORDERED: DEXTROSE 40% GEL 15 GM TUBE PO PRN ×2 (02:40)
[2019-03-28] MEDS ORDERED: GLUCAGON,HUMAN RECOMB 1 MG INJ SUBCUT PRN (02:40)
--- NOTE | 2019-03-28 03:03 | PDOC H&P ---
History of Present Illness Admission Date/PCP: 03/27/19 22:28 MARK HAILE MD Patient complains of: Dyspnea History of Present Illness: LEATHA DOHERTY is a 63 year old female who presented to the emergency room with a 2-day history of dyspnea. Patient indicates that she was dyspneic from the ti me of her discharge from the hospital 2 days ago, where she was treated for pneumonia with oral Levaquin. Her dyspnea rapidly increased on the evening of admission and became so significant that she required emergency medical attention. She used her bronchodilator medications at home without significant improvement. She denies other accompanying or associated signs and symptoms with the exception of her cough which has been present for several days. She admits prior similar episodes with COPD and CHF. She has not identified any aggravating or ameliorating factors for her dyspnea. In the emergency room she was found to have acute respiratory failure with hypoxia and required BiPAP treatment. Additionally she was noted to have acute kidney injury with a BUN of 48 and a creatinine of 3.4. Patient's white blood count was also noted to have risen from 13,000 at the time of her discharge to 16,000 in the emergency room. With these findings and evidence of pyuria on the patient's urinalysis it was felt that she should be admitted to the hospital for further evaluation and treatment. Past Medical History Cardiac Medical History: Reports: Congestive Heart Failure, Hyperlipidema, Hypertension Denies: Atrial Fibrillation, Coronary Artery Disease - HIGH CHOLESTEROL, DVT, Myocardial Infarction, Pulmonary Embolism Pulmonary Medical History: Reports: Asthma, Bronchitis, Chronic Obstructive Pulmonary Disease (COPD), Pneumonia - Several admissions within the last 12 months, Respiratory Failure Denies: Tuberculosis EENT Medical History: Denies: Cataracts, Ears - Hearing aids Neurological Medical History: Denies: Hemorrhagic CVA, Ischemic CVA, Seizures Endocrine Medical History: Reports: Hypothyroidism, Obesity Denies: Diabetes Mellitus Type 1, Diabetes Mellitus Type 2, Hyperthyroidism Renal/ Medical History: Reports: Chronic Kidney Disease Denies: Nephrolithiasis Malignancy Medical History: Reports: None GI Medical History: Denies: Cirrhosis, Crohn's Disease, Hepatitis, Ulcerative Colitis Musculoskeltal Medical History: Reports: Arthritis, Other - Chronic pain syndrome Denies: Gout Skin Medical History: Denies: Eczema, Psoriasis Psychiatric Medical History: Reports: Depression Denies: Alcohol Dependency, Substance Abuse, Tobacco Dependency Traumatic Medical History: Reports: None Hematology: Reports: Anemia Denies: Bleeding Tendencies Infectious Medical History: Reports: None Denies: HIV Past Surgical History Past Surgical History: Reports: Hysterectomy, Orthopedic Surgery - Wrist fracture repair, Tubal Ligation Social History Information Source: Patient Lives with: Spouse/Significant other Smoking Status: Former Smoker Frequency of Alcohol Use: None Hx Recreational Drug Use: No Drugs: None Hx Prescription Drug Abuse: No - Advance Directive Resuscitation Status: Full Code Surrogate healthcare decision maker:: Isaiah Doherty Family History Family History: CAD, Hypertension. denies: DM, Malignancy Parental Family History Reviewed: Yes Children Family History Reviewed: No Sibling(s) Family History Reviewed.: Yes Medication/Allergy Home Medications: Albuterol Sulfate [Proair HFA Inhalation Aerosol 8.5 gm MDI] 1 puff IH Q6HP PRN 03/18/19 Albuterol Sulfate [Ventolin 0.083% Neb 2.5 mg/3 mL Ampul] 1 vial NEB RTQ4HP PRN 03/18/19 Alprazolam [Xanax 0.5 mg Tablet] 0.5 mg PO QID 03/18/19 Atorvastatin Calcium [Lipitor 20 mg Tablet] 20 mg PO NOON 03/18/19 Azelastine HCl 1 spray NASL BID 03/18/19 Cyclobenzaprine HCl [Flexeril 10 mg Tablet] 10 mg PO BIDP PRN 03/18/19 Dicyclomine HCl [Bentyl 10 mg Capsule] 10 mg PO TIDP PRN 03/18/19 Diphenoxylate HCl/Atropine [Lomotil 2.5-0.025 mg Tablet] 1 tab PO DAILYP PRN Donepezil HCl [Aricept] 10 mg PO QHS 03/18/19 Duloxetine HCl 60 mg PO DAILY 03/18/19 Ergocalciferol (Vitamin D2) [Drisdol 50,000 unit (1.25MG) Capsule] 50,000 unit PO [id number] 03/18/19 Eszopiclone [Lunesta] 2 mg PO QHS 03/18/19 Fluticasone Propionate [Flonase Nasal [place] 50 Mcg/[place] 16 gm] 1 spray NASL DAILY 03/18/19 Fluticasone/Umeclidin/Vilanter [Trelegy 100-62.5-25 Mcg Ellipta 14 Dose/Dpi] 1 puff IH DAILY 03/18/19 Fondaparinux Sodium [Arixtra Inj 7.5 mg/0.6 ml Disp. Syrin] 7.5 mg SQ DAILY 03/18/19 Guaifenesin [Mucinex] 600 mg PO Q12 03/18/19 Levocetirizine Dihydrochloride [Xyzal] 5 mg PO DAILY 03/18/19 Levothyroxine Sodium [Synthroid] 200 mcg PO Q6AM 03/18/19 Magnesium Oxide [Mag-Ox 400 mg Tablet] 400 mg PO DAILY 03/18/19 Menthol/Zinc Oxide [Calmoseptine Ointment] 1 applic TOP TIDP PRN 03/18/19 Metolazone [Zaroxolyn 5 mg Tablet] 5 mg PO DAILY 03/18/19 Omeprazole 20 mg PO DAILY 03/18/19 Oxycodone HCl 15 mg PO Q6 03/18/19 Potassium Chloride [Klor-Con M20] 20 meq PO DAILY 03/18/19 Vitamin [-U Multiple Vitamin Capsule] 1 cap PO DAILY 03/18/19 Primidone [Mysoline 50 mg Tablet] 50 mg PO TID 03/18/19 Ramipril [Altace 2.5 mg Capsule] 2.5 mg PO QHS 03/18/19 Torsemide [Demadex 20 mg Tablet] 20 mg PO BID 03/18/19 Levofloxacin [Levaquin 500 mg Tablet] 500 mg PO DAILY #5 tablet 03/23/19 Prednisone [Deltasone 20 mg Tablet] 40 mg PO DAILY #10 tablet 03/23/19 Promethazine HCl [Phenergan 25 mg Tablet] 25 mg PO Q4HP PRN tablet 03/23/19 Allergies/Adverse Reactions: pregabalin [From Lyrica] Allergy (Unknown, Verified 03/08/19 22:52) trazodone HCl [From Desyrel] Allergy (Unknown, Verified 03/08/19 22:52) cephalexin monohydrate [From Keflex] Adverse Reaction (Verified 03/08/19 22:52) nausea, vomiting erythromycin base [Erythromycin Base] Adverse Reaction (Verified 03/08/19 22:52) nausea, vomiting gabapentin Adverse Reaction (Verified 03/08/19 22:52) Nausea guaifenesin [From Entex T] Adverse Reaction (Verified 03/08/19 22:52) Nausea pseudoephedrine [From Entex T] Adverse Reaction (Verified 03/08/19 22:52) Nausea Review of Systems Constitutional: ABSENT: chills, fever(s) Eyes: ABSENT: visual disturbances, other - Eye pain Ears: ABSENT: hearing changes, other - Ear pain Nose, Mouth, and Throat: ABSENT: mouth pain, sore throat Cardiovascular: PRESENT: dyspnea on exertion. ABSENT: chest pain Respiratory: PRESENT: as per HPI, cough, dyspnea, sputum - Small amounts of clear brownish to whitish. ABSENT: hemoptysis Gastrointestinal: ABSENT: abdominal pain, constipation, diarrhea, nausea, vomiting Genitourinary: ABSENT: dysuria, hematuria Musculoskeletal: PRESENT: back pain - Chronic. ABSENT: joint swelling, muscle weakness Integumentary: ABSENT: pruritus, rash Neurological: ABSENT: confusion, convulsions, focal weakness, memory loss, syncope Psychiatric: ABSENT: anxiety, depression Endocrine: ABSENT: cold intolerance, heat intolerance Hematologic/Lymphatic: ABSENT: easy bleeding, easy bruising Allergic/Immunologic: ABSENT: seasonal rhinorrhea Physical Exam Vital Signs: Temp Pulse Resp BP Pulse Ox 99.1 F 111 H 17 104/65 96 03/27/19 18:01 03/27/19 17:10 03/27/19 19:50 03/27/19 18:01 03/27/19 19:50 Intake & Output 03/25/19 03/26/19 03/27/19 23:59 23:59 23:59 Weight 113.6 kg General appearance: PRESENT: no acute distress, cooperative, morbidly obese, other - On supplemental oxygen of time of my exam Head exam: PRESENT: atraumatic, normocephalic Eye exam: PRESENT: conjunctiva pink. ABSENT: conjunctival injection, scleral icterus Ear exam: PRESENT: normal external ear exam. ABSENT: bleeding, drainage Mouth exam: PRESENT: dry mucosa, neck supple Neck exam: ABSENT: thyromegaly, tracheal deviation Respiratory exam: PRESENT: accessory muscle use - Mild accessory muscle use to assist breathing, decreased breath sounds - Moderately decreased breath sounds throughout all lung garcia consistent with moderate to severe COPD, prolonged expiratory phas - Moderately prolonged expiratory phase present in all garcia, retraction - Mild supraclavicular and infraclavicular retractions noted with respirations, symmetrical, wheezes - Moderate expiratory wheezes present in all garcia. ABSENT: rales, rhonchi Cardiovascular exam: PRESENT: RRR. ABSENT: clicks, gallop, rubs Pulses: PRESENT: normal radial pulses, normal dorsalis pedis pul Vascular exam: PRESENT: normal capillary refill. ABSENT: pallor GI/Abdominal exam: PRESENT: normal bowel sounds, soft Rectal exam: PRESENT: deferred Extremities exam: ABSENT: joint swelling, pedal edema, tenderness Musculoskeletal exam: ABSENT: deformity, dislocation Neurological exam: PRESENT: alert, oriented to person, oriented to place, oriented to time, oriented to situation, CN II-XII grossly intact. ABSENT: motor sensory deficit Psychiatric exam: PRESENT: appropriate affect, normal mood Skin exam: PRESENT: dry, intact, warm. ABSENT: jaundice, rash, urticaria Results Laboratory Results: 03/27/19 17:10 03/27/19 17:10 03/27/19 03/27/19 03/27/19 17:10 17:10 17:40 WBC 16.5 H RBC 3.25 L Hgb 9.7 L Hct 28.9 L MCV 89 MCH 29.7 MCHC 33.5 RDW 16.4 H Plt Count 370 Seg Neutrophils % Not Reportable Carbonic Acid HCO3/H2CO3 Ratio ABG pH ABG pCO2 ABG pO2 ABG HCO3 ABG O2 Saturation ABG Base Excess FiO2 Sodium 134.8 L Potassium 4.9 Chloride 97 L Carbon Dioxide 25 Anion Gap 13 BUN 48 H Creatinine 3.42 H Est GFR ( Amer) 16 L Glucose 124 H Calcium 8.2 L Total Bilirubin 0.5 AST 39 H Alkaline Phosphatase 79 Total Protein 6.8 Albumin 3.8 Urine Color DARK YELLOW Urine Appearance SLIGHTLY-CLOUDY Urine pH 5.0 Ur Specific [place] 1.018 Urine Protein NEGATIVE Urine Glucose (UA) NEGATIVE Urine Ketones NEGATIVE Urine Blood NEGATIVE Urine Nitrite NEGATIVE Ur Leukocyte Esterase MODERATE H Urine WBC (Auto) 28 Urine RBC (Auto) 2 03/27/19 21:15 WBC RBC Hgb Hct MCV MCH MCHC RDW Plt Count Seg Neutrophils % Carbonic Acid 1.29 HCO3/H2CO3 Ratio 18:1 ABG pH 7.35 ABG pCO2 42.8 ABG pO2 137.8 H ABG HCO3 23.3 ABG O2 Saturation 98.6 H ABG Base Excess -2.2 FiO2 50% Sodium Potassium Chloride Carbon Dioxide Anion Gap BUN Creatinine Est GFR ( Amer) Glucose Calcium Total Bilirubin AST Alkaline Phosphatase Total Protein Albumin Urine Color Urine Appearance Urine pH Ur Specific [place] Urine Protein Urine Glucose (UA) Urine Ketones Urine Blood Urine Nitrite Ur Leukocyte Esterase Urine WBC (Auto) Urine RBC (Auto) 03/27/19 03/27/19 17:10 17:10 Creatine Kinase 317 H CK-MB (CK-2) 10.30 H Troponin I 0.016 Impressions: Chest X-Ray 03/27/19 17:15 IMPRESSION: Persistent right upper lobe opacification, pneumonia versus chronic change. Assessment and Plan - Diagnosis (1) Chronic obstructive pulmonary disease with acute exacerbation Is this a current diagnosis for this admission?: Yes Plan: Patient's respiratory failure will be treated with supplemental oxygen and noninvasive airway support devices such as BiPAP or CPAP in order to maintain an adequate O2 saturation between 90 and 94%. Patient also be treated with aggressive pulmonary toilet utilizing Xopenex, Atrovent and Pulmicort administered via nebulizer. She will also receive intravenous Solu-Medrol in a multiple bolus dose burst therapy plan. Patient's O2 sat and clinical course be monitored closely throughout her hospital stay. His daily CBC, metabolic profile with magnesium level will be obtained. The patient's recent pneumonia does not appear to improved substantially on Levaquin and with the patient's new renal failure and antibiotic changes in order. Levaquin has been discontinued and patient has been started on meropenem with an initial 1 g IV dose followed by 500 mg IV every 8 hours. Blood cultures and urine cultures are pending at this time. (2) Acute and chronic respiratory failure with hypoxia Is this a current diagnosis for this admission?: Yes Plan: Patient's respiratory failure will be treated with supplemental oxygen and noninvasive airway support devices such as BiPAP or CPAP in order to maintain an adequate O2 saturation between 90 and 94%. (3) Acute kidney injury superimposed on chronic kidney disease Is this a current diagnosis for this admission?: Yes Plan: Patient be treated with IV fluids and monitored closely with daily CBCs, metabolic profiles and magnesium levels. (4) Hypertension Qualifiers: Hypertension type: essential hypertension Qualified Code(s): I10 - Essential (primary) hypertension Is this a current diagnosis for this admission?: Yes Plan: Patient will be continued on her usual antihypertensive regimen. Blood pressure will be observed closely throughout her hospital course. She will be continued on a cardiac diet. (5) Hyperlipidemia Qualifiers: Hyperlipidemia type: unspecified Qualified Code(s): E78.5 - Hyperlipidemia, unspecified Is this a current diagnosis for this admission?: Yes Plan: Patient will be continued on her usual lipid therapy. A lipid profile will be obtained to assess the efficacy of current therapy. She will also be continued on a cardiac diet throughout her hospital stay. (6) Hypothyroidism (acquired) Is this a current diagnosis for this admission?: Yes Plan: Patient be continued on her current thyroid replacement hormone. A thyroid profile will be obtained to evaluate the efficacy of her current thyroid therapy. (7) Anemia in chronic kidney disease Qualifiers: Chronic kidney disease stage: stage 3 (moderate) Qualified Code(s): N18.3 - Chronic kidney disease, stage 3 (moderate); D63.1 - Anemia in chronic kidney disease Is this a current diagnosis for this admission?: Yes Plan: A daily CBC will be obtained to monitor the patient's chronic anemia. (8) Obesity Qualifiers: Obesity type: due to excess calories Serious obesity comorbidity presence: unspecified whether serious comorbidity present Body mass index: BMI 40.0-44.9 Is this a current diagnosis for this admission?: Yes Plan: A dietitian/offset press assistant consult will be obtained to aid the patient in weight loss and control of her cardiac related medical illnesses. - Time Time Spent with patient: 25-34 minutes Medications reviewed and adjusted accordingly: Yes Anticipated discharge: Home - Inpatient Certification Based on my medical assessment, after consideration of the patient's comorbidities, presenting symptoms, or acuity I expect that the services needed warrant INPATIENT care.: Yes I certify that my determination is in accordance with my understanding of Medicare's requirements for reasonable and necessary INPATIENT services [42 CFR 412.3e].: Yes Medical Necessity: Failure to Improve With Outpatient Therapy, Significant Comorbidiites Make Outpatient Treatment Too Risky, Need Close Monitoring Due to Risk of Patient Decompensation, Need For IV Fluids, Need for Nebulizer Therapy and Monitoring of Response, Need for IV Antibiotics, Risk of Complication if Not Cared For in Hospital, Risk of Diagnosis Which Will Require Inpatient Eval/Ca re/Monitoring, Other - Need for respiratory support and supplemental oxygen.
--- NOTE | 2019-03-28 03:12 | ADVANCED CARE ---
- Diagnosis (1) Chronic obstructive pulmonary disease with acute exacerbation Diagnosis Current: Yes (2) Acute and chronic respiratory failure with hypoxia Diagnosis Current: Yes (3) Acute kidney injury superimposed on chronic kidney disease Diagnosis Current: Yes (4) Hypertension Diagnosis Current: Yes (5) Hyperlipidemia Diagnosis Current: Yes (6) Hypothyroidism (acquired) Diagnosis Current: Yes (7) Anemia in chronic kidney disease Diagnosis Current: Yes (8) Obesity Diagnosis Current: Yes Attendance: The patient and myself. Resuscitation Status: Full Code Discussion: After brief discussion patient has determined she wishes to remain full code resuscitation status for this visit. She has named Isaiah Doherty as her designated surrogate medical decision-maker. Care Planning Goals: 1. Patient will be full CODE STATUS for this admission. 2. Isaiah Doherty is the patient's designated surrogate medical decision. Document(s) Completed: The following information will be entered into the patient's permanent medical record via this EMR entry: 1. Patient will be full CODE STATUS for this admission. 2. Isaiah Doherty is the patient's designated surrogate medical decision. Time Spent: 18 minutes
[2019-03-28] MEDS ORDERED: HEPARIN SOD (PORCINE) 5,000 UNIT/ML 1 ML VIAL SUBCUT SCH (06:00)
[2019-03-28] MEDS ORDERED: MEROPENEM 500 MG in NORMAL SALINE 50 ML IV SCH (06:00)
[2019-03-28] MEDS ORDERED: MEROPENEM 500 MG VIAL IV PRN (06:00)
[2019-03-28] MEDS ORDERED: MEROPENEM 500 MG VIAL ONE (06:08)
[2019-03-28 06:19] LABS: VENOUS BLOOD BASE EXCESS -0.3 mmol/L; VENOUS BLOOD HCO3 25.5 mmol/L (20-32); VENOUS BLOOD PCO2 46.8 mmHg (35-63); VENOUS BLOOD PH 7.35 (7.30-7.42)
[2019-03-28 06:20] LABS: HEMATOCRIT 25.5 % (36.0-47.0); HEMOGLOBIN 8.4 g/dL (12.0-15.5); MEAN CORPUSCULAR HEMOGLOBIN 29.2 pg (27.0-33.4); MEAN CORPUSCULAR HGB CONC 32.8 g/dL (32.0-36.0); MEAN CORPUSCULAR VOLUME 89 fl (80-97); PLATELET COUNT 263 10^3/uL (150-450); RED BLOOD COUNT 2.86 10^6/uL (3.72-5.28); RED CELL DISTRIBUTION WIDTH 16.2 % (11.5-14.0); WHITE BLOOD COUNT 16.1 10^3/uL (4.0-10.5)
[2019-03-28] MEDS: PANTOPRAZOLE SODIUM 40 MG TABLET.DR PO SCH ×2 (06:35→16:58)
[2019-03-28] MEDS: BUDESONIDE NEB 0.5 MG/2 ML AMPUL NEB SCH ×2 (08:17→20:19)
[2019-03-28] MEDS: ACETYLCYSTEINE 20% SOLN 800 MG/4 ML VIAL.NEB NEB SCH ×3 (08:17→20:19)
[2019-03-28] MEDS: METOCLOPRAMIDE HCL 10 MG TABLET PO SCH ×2 (08:20→10:20)
[2019-03-28] MEDS: SUCRALFATE 1 GM TABLET PO SCH ×4 (08:20→22:49)
[2019-03-28] MEDS: DOCUSATE SODIUM 100 MG CAPSULE PO SCH ×2 (10:16→17:01)
[2019-03-28] MEDS: MAGNESIUM OXIDE 400 MG TABLET PO SCH ×3 (10:16→16:52)
[2019-03-28] MEDS: NORMAL SALINE 1000 ML 1,000 ML IV SCH (10:21)
[2019-03-28] MEDS ORDERED: NYSTATIN TOPICAL POWDER 15 GM TP PRN (11:16)
[2019-03-28] MEDS ORDERED: DIPHENOXYLATE HCL/ATROP SULF 2.5-0.025 MG TABLET PO PRN (11:16)
[2019-03-28] MEDS ORDERED: PROMETHAZINE HCL 25 MG TABLET PO PRN (11:16)
[2019-03-28] MEDS ORDERED: ZOLPIDEM TARTRATE 5 MG TABLET PO SCH (12:15)
[2019-03-28] MEDS: OXYCODONE HCL IR 5 MG TABLET PO PRN (12:48)
[2019-03-28] MEDS: CIPROFLOXACIN 400 MG/D5W RTU 400 MG/200 ML RTUPB IV SCH ×2 (13:07→22:50)
--- NOTE | 2019-03-28 13:54 | PDOC PROGRESS REPORT ---
Subjective Progress Note for:: 03/28/19 Subjective:: The patient is a 63-year-old female with a past medical history significant for CHF, hypertension, hyperlipidemia, asthma, COPD, multiple admissions for pneumonia, hypothyroidism, obesity, CVA with residual left-sided weakness, CKD, arthritis/chronic pain, and depression who was admitted 03/27/2019 for COPD exacerbation after being discharged from our facility 2 days ago following treatment for community-acquired pneumonia. Patient was strongly encouraged to consider inpatient short-term rehabilitation during last admission which patient and declined. She was discharged home with home health services. The patient was seen on morning rounds. She was found resting in bed comfortably on supplemental oxygen via nasal cannula. She was noted to be spe aking full sentences without pauses, therefore her oxygen was turned off and she was continue to be comfortable. SPO2 on room air noted to be 94% with normal respiratory rate and work of effort. Per ED provider and hospitalist admission note, patient presented with complaint of shortness of breath, unresponsive to her home nebulizer treatments, that has gradually worsened since time of her discharge. However, this morning patient declines dyspnea being her presenting symptom. She reports that she had sudden onset of dysphagia 24 hours prior; she noted difficulty swallowing both solids and liquids with frequent cough following attempts to eat. She tells me she has not had anything by mouth and almost 18 hours due to difficulty swallowing. She denies associated sore throat, difficulty speaking, dyspnea, productive cough or fever. She denies focal deficits. She further denies headache, dizziness, blurred vision, chest pain, palpitations, orthopnea, abdominal pain, nausea vomiting and diarrhea. The patient's primary concern today is the resumption of her home medications and frustration at her current n.p.o. status. No concerns per nursing. Reason For Visit: ACUTE EXACERBATION OF COPD,ACUTE ON CHRONIC RESPIR Physical Exam Vital Signs: Temp Pulse Resp BP Pulse Ox 99.1 F 107 H 16 127/89 H 96 03/28/19 00:12 03/28/19 08:30 03/28/19 08:30 03/28/19 00:12 03/28/19 08:30 Intake & Output 03/27/19 03/28/19 03/29/19 06:59 06:59 06:59 Intake Total 1130 50 Output Total 0 Balance 1130 50 Weight 112.2 kg General appearance: PRESENT: no acute distress, morbidly obese, well-developed, well-nourished. ABSENT: cooperative Head exam: PRESENT: atraumatic, normocephalic Eye exam: PRESENT: conjunctiva pink, EOMI, PERRLA. ABSENT: scleral icterus Ear exam: PRESENT: normal external ear exam Mouth exam: PRESENT: moist, tongue midline Neck exam: ABSENT: carotid bruit, JVD, lymphadenopathy, thyromegaly Respiratory exam: PRESENT: clear to auscultation allison, symmetrical, unlabored. ABSENT: rales, rhonchi, wheezes Cardiovascular exam: PRESENT: RRR, +S1, +S2. ABSENT: diastolic murmur, rubs, systolic murmur Pulses: PRESENT: normal dorsalis pedis pul Vascular exam: PRESENT: normal capillary refill GI/Abdominal exam: PRESENT: normal bowel sounds, soft. ABSENT: distended, guarding, mass, organolmegaly, rebound, tenderness Rectal exam: PRESENT: deferred Extremities exam: PRESENT: full ROM. ABSENT: calf tenderness, clubbing, pedal edema Neurological exam: PRESENT: alert, awake, oriented to person, oriented to place, oriented to time, oriented to situation, CN II-XII grossly intact. ABSENT: m otor sensory deficit Psychiatric exam: PRESENT: agitated, appropriate affect, normal mood. ABSENT: homicidal ideation, suicidal ideation Skin exam: PRESENT: dry, intact, warm. ABSENT: cyanosis, rash Results Laboratory Results: 03/28/19 06:12 03/27/19 17:10 03/27/19 03/27/19 03/27/19 17:10 17:10 17:10 WBC 16.5 H RBC 3.25 L Hgb 9.7 L Hct 28.9 L MCV 89 MCH 29.7 MCHC 33.5 RDW 16.4 H Plt Count 370 Seg Neutrophils % Not Reportable Carbonic Acid HCO3/H2CO3 Ratio ABG pH ABG pCO2 ABG pO2 ABG HCO3 ABG O2 Saturation ABG Base Excess VBG pH VBG pCO2 VBG HCO3 VBG Base Excess FiO2 Sodium 134.8 L Potassium 4.9 Chloride 97 L Carbon Dioxide 25 Anion Gap 13 BUN 48 H Creatinine 3.42 H Est GFR ( Amer) 16 L Glucose 124 H Lactic Acid 1.7 Calcium 8.2 L Magnesium Total Bilirubin 0.5 AST 39 H Alkaline Phosphatase 79 Total Protein 6.8 Albumin 3.8 Urine Color Urine Appearance Urine pH Ur Specific [place] Urine Protein Urine Glucose (UA) Urine Ketones Urine Blood Urine Nitrite Ur Leukocyte Esterase Urine WBC (Auto) Urine RBC (Auto) 03/27/19 03/27/19 03/28/19 17:40 21:15 02:21 WBC RBC Hgb Hct MCV MCH MCHC RDW Plt Count Seg Neutrophils % Carbonic Acid 1.29 HCO3/H2CO3 Ratio 18:1 ABG pH 7.35 ABG pCO2 42.8 ABG pO2 137.8 H ABG HCO3 23.3 ABG O2 Saturation 98.6 H ABG Base Excess -2.2 VBG pH VBG pCO2 VBG HCO3 VBG Base Excess FiO2 50% Sodium Potassium Chloride Carbon Dioxide Anion Gap BUN Creatinine Est GFR ( Amer) Glucose Lactic Acid 1.0 Calcium Magnesium Total Bilirubin AST Alkaline Phosphatase Total Protein Albumin Urine Color DARK YELLOW Urine Appearance SLIGHTLY-CLOUDY Urine pH 5.0 Ur Specific [place] 1.018 Urine Protein NEGATIVE Urine Glucose (UA) NEGATIVE Urine Ketones NEGATIVE Urine Blood NEGATIVE Urine Nitrite NEGATIVE Ur Leukocyte Esterase MODERATE H Urine WBC (Auto) 28 Urine RBC (Auto) 2 03/28/19 03/28/19 03/28/19 06:12 06:12 06:12 WBC 16.1 H RBC 2.86 L Hgb 8.4 L Hct 25.5 L MCV 89 MCH 29.2 MCHC 32.8 RDW 16.2 H Plt Count 263 Seg Neutrophils % Carbonic Acid HCO3/H2CO3 Ratio ABG pH ABG pCO2 ABG pO2 ABG HCO3 ABG O2 Saturation ABG Base Excess VBG pH 7.35 VBG pCO2 46.8 VBG HCO3 25.5 VBG Base Excess -0.3 FiO2 Sodium Potassium Chloride Carbon Dioxide Anion Gap BUN Creatinine Est GFR ( Amer) Glucose Lactic Acid Calcium Magnesium 1.5 L Total Bilirubin AST Alkaline Phosphatase Total Protein Albumin Urine Color Urine Appearance Urine pH Ur Specific [place] Urine Protein Urine Glucose (UA) Urine Ketones Urine Blood Urine Nitrite Ur Leukocyte Esterase Urine WBC (Auto) Urine RBC (Auto) 03/28/19 06:12 WBC RBC Hgb Hct MCV MCH MCHC RDW Plt Count Seg Neutrophils % Carbonic Acid HCO3/H2CO3 Ratio ABG pH ABG pCO2 ABG pO2 ABG HCO3 ABG O2 Saturation ABG Base Excess VBG pH VBG pCO2 VBG HCO3 VBG Base Excess FiO2 Sodium Potassium Chloride Carbon Dioxide Anion Gap BUN Creatinine Est GFR ( Amer) Glucose Lactic Acid 0.8 Calcium Magnesium Total Bilirubin AST Alkaline Phosphatase Total Protein Albumin Urine Color Urine Appearance Urine pH Ur Specific [place] Urine Protein Urine Glucose (UA) Urine Ketones Urine Blood Urine Nitrite Ur Leukocyte Esterase Urine WBC (Auto) Urine RBC (Auto) 03/27/19 03/27/19 17:10 17:10 Creatine Kinase 317 H CK-MB (CK-2) 10.30 H Troponin I 0.016 Impressions: Chest X-Ray 03/27/19 17:15 IMPRESSION: Persistent right upper lobe opacification, pneumonia versus chronic change. Assessment and Plan - Diagnosis (1) COPD (chronic obstructive pulmonary disease) Qualifiers: Chronic bronchitis type: unspecified Is this a current diagnosis for this admission?: Yes Plan: The patient is admitted to the medical floor and continuous cardiac telemetry. She is provided supplemental oxygen as needed to meet saturations 89 to 92%. She is placed on scheduled and as needed nebulizer treatments. Continue scheduled Mucomyst. IV meropenem is discontinued; will start IV ciprofloxacin for patient with COPD (Leukocytosis explained by steroid therapy, afebrile with clear lung sounds and acceptable vital signs). Continue IV Cipro and Solu-Medrol. Mucinex twice daily. Incentive spirometer and flutter valve to bedside. Ambulate the halls, out of bed for meals. Will obtain noncontrasted CT of the chest to evaluate the right upper lobe opacity noted on chest x-ray. This may also assist with evaluation of the patient's dysphasia. (2) Acute kidney injury superimposed on chronic kidney disease Is this a current diagnosis for this admission?: Yes Plan: Creatinine of 3.42 on admission. 1.79 baseline. Likely secondary to poor p.o. intake; patient complains of dysphasia. Avoid nephrotoxic medications as able. Continue gentle IV fluid resuscitation. Speech therapy has cleared patient for nectar thickened liquids. Encourage p.o. intake. Daily chemistries. (3) Anemia in chronic kidney disease Qualifiers: Chronic kidney disease stage: stage 3 (moderate) Qualified Code(s): N18.3 - Chronic kidney disease, stage 3 (moderate); D63.1 - Anemia in chronic kidney disease Is this a current diagnosis for this admission?: Yes Plan: Overall stable, it appears that the patient's baseline hemoglobin is 9.5. Continue daily multivitamin. Start ferrous sulfate daily with meals. A daily CBC will be obtained to monitor the patient's chronic anemia. (4) Hypertension Qualifiers: Hypertension type: essential hypertension Qualified Code(s): I10 - Essential (primary) hypertension Is this a current diagnosis for this admission?: Yes Plan: Normotensive at present. Continue home medication regiment of Ramipril and torsemide IV hydralazine as needed for blood pressure control. Cardiac diet. (5) Hypothyroidism (acquired) Is this a current diagnosis for this admission?: Yes Plan: Continue home dose levothyroxine. (6) Obesity Qualifiers: Obesity type: due to excess calories Serious obesity comorbidity presence: unspecified whether serious comorbidity present Body mass index: BMI 40.0-44.9 Is this a current diagnosis for this admission?: Yes Plan: Dietary discretion and lifestyle modification are encouraged. Patient is placed on a consistent carb, cardiac, prerenal diet. PT/OT are consulted. Employed in the halls daily, out of bed for meals. (7) Opiate dependence, continuous Is this a current diagnosis for this admission?: Yes Plan: Chronic back pain. Reduce oxycodone schedule due to chronic respiratory failure. Encourage nonpharmacological interventions. (8) Dysphasia Is this a current diagnosis for this admission?: Yes Plan: Patient reports 24 hours of dysphasia resulting in reduced p.o. intake. Speech therapy has been consulted; recommend pured diet with nectar thickened liquids. Cookie swallow study ordered for Saturday. Aspiration precautions (9) Depression Is this a current diagnosis for this admission?: Yes Plan: Continue home dose Cymbalta and Prozac. Of note the patient is also prescribed Lunesta, Aricept, Lomotil, Requip, oxycodone, and Xanax. The patient is displaying behaviors consistent with malingering; have asked mental health services to evaluate the patient for additional underlying mental health disorders and to make medication recommendations. (10) Acute and chronic respiratory failure with hypoxia Is this a current diagnosis for this admission?: Yes Plan: Acute respiratory failure with hypoxia has resolved. Patient is now maintaining oxygen saturations while on room air. 94% while at rest, normal heart rate, normal respiratory rate. She currently has clear lung sounds. Have decreased the patient's oxycodone and Ativan dosing secondary to chronic respiratory failure. We will continue to manage COPD exacerbation as above. - Time Time Spent with patient: 35 or more minutes Medications reviewed and adjusted accordingly: Yes Anticipated discharge: Home with Homehealth Within: within 48 hours
--- NOTE | 2019-03-28 13:55 | Progress Note Acknowledgement ---
Progress Note Acknowledgement Progess Note Acknowledgement: I, the undersigned member of the medical staff with appropriate privileges and with supervisory authority over Alla Medeiros, a [facility] practice allied health professional, acknowledge that I have reviewed the progress notes entered on this patient, and in my professional judgment believe that the assessment made and/or any care evidenced was appropriate
[2019-03-28] MEDS: ALPRAZOLAM 0.5 MG TABLET PO SCH ×3 (13:57→22:48)
[2019-03-28] MEDS: PRIMIDONE 50 MG TABLET PO SCH ×2 (13:57→22:48)
[2019-03-28] MEDS: FONDAPARINUX SODIUM INJ 7.5 MG/0.6 ML DISP.SYRIN SUBCUT SCH (13:58)
--- NOTE | 2019-03-28 15:13 | RADIOLOGY REPORT (SQ) ---
EXAM DESCRIPTION: CT CHEST WITHOUT COMPLETED DATE/TIME: 03/28/2019 2:42 pm REASON FOR STUDY: Dyspnea, persistent RUL opacity on CXR COMPARISON: 06/25/2018 TECHNIQUE: CT scan performed of the chest without intravenous contrast. Images reviewed with lung, soft tissue and bone windows. Reconstructed coronal and sagittal MPR images reviewed. All images st ored on PACS. All CT scanners at this facility use dose modulation, iterative reconstruction, and/or weight based d osing when appropriate to reduce radiation dose to as low as reasonably achievable (ALARA). [facility]: Dose Right [facility]: CareDose [facility]: Dose Right [facility]: Teradose 4D [facility]: [employer] RADIATION DOSE: CT Rad equipment meets quality standard of care and radiation dose reduction techniq ues were employed. CTDIvol: 20.7 mGy. DLP: 759 mGy-cm. mGy. LIMITATIONS: No technical limitations. FINDINGS: LUNGS AND PLEURA: Reticulonodular infiltrate in the upper lobes, right greater than left, and in the left lower lobe. There is a background of chronic interstitial changes. No fibrosis. HILAR AND MEDIASTINAL STRUCTURES: No identified masses or abnormal nodes. No obvious aneurysm. HEART AND VASCULAR STRUCTURES: No aneurysm. No pericardial effusion. UPPER ABDOMEN: No significant findings. Limited exam. THYROID AND OTHER SOFT TISSUES: No masses. No adenopathy. BONES: Nothing acute. HARDWARE: None in the chest. OTHER: No other significant findings. IMPRESSION: Bilateral reticulonodular infiltrates, most likely due to infectious or inflammatory pro cess. TECHNICAL DOCUMENTATION: JOB ID: [id number] Quality ID # [id number]: Final reports with documentation of one or more dose reduction techniques (e.g., Au tomated exposure control, adjustment of the mA and/or kV according to patient size, use of iterative reconstruction technique) 2010 [employer]- All Rights Reserved Reading location - IP/workstation name: [email or web address]
[2019-03-28] MEDS: ROPINIROLE HCL 0.25 MG TABLET PO SCH (17:00)
[2019-03-28] MEDS ORDERED: (PENDING PHARMACY ID) (Azelastine Hcl [Azelastine Hcl] 1 SPRAY) NS SCH (18:00)
[2019-03-28] MEDS ORDERED: RAMIPRIL 2.5 MG CAPSULE ONE (22:40)
[2019-03-28] MEDS ORDERED: PRIMIDONE 50 MG TABLET ONE (22:41)
[2019-03-28] MEDS: LUNESTA 3 MG PO SCH (22:46)
[2019-03-28] MEDS: RAMIPRIL 2.5 MG CAPSULE PO SCH (22:47)
[2019-03-28] MEDS: GUAIFENESIN 600 MG TABLET.SA PO SCH (22:47)
[2019-03-28] MEDS: CETIRIZINE 5 MG TABLET PO SCH (22:48)
[2019-03-29] MEDS: LEVALBUTEROL HCL NEB 1.25 MG/3 ML AMPUL NEB SCH ×4 (00:37→23:35)
[2019-03-29] MEDS: IPRATROPIUM BROMIDE 0.02% NEB 0.5 MG/2.5 ML AMPUL NEB SCH ×4 (00:37→23:35)
[2019-03-29] MEDS: METHYLPREDNISOLONE INJ 40 MG/1 ML SDV IV SCH ×4 (00:55→17:41)
[2019-03-29] MEDS: LEVALBUTEROL HCL NEB 0.63 MG/3 ML AMPUL NEB PRN ×2 (04:19→19:32)
[2019-03-29 05:00] LABS: HEMATOCRIT 27.8 % (36.0-47.0); HEMOGLOBIN 9.1 g/dL (12.0-15.5); MEAN CORPUSCULAR HEMOGLOBIN 29.7 pg (27.0-33.4); MEAN CORPUSCULAR HGB CONC 32.7 g/dL (32.0-36.0); MEAN CORPUSCULAR VOLUME 91 fl (80-97); PLATELET COUNT 313 10^3/uL (150-450); RED BLOOD COUNT 3.07 10^6/uL (3.72-5.28); RED CELL DISTRIBUTION WIDTH 16.2 % (11.5-14.0); WHITE BLOOD COUNT 15.5 10^3/uL (4.0-10.5)
[2019-03-29 05:26] LABS: ANION GAP 14 (5-19); BLOOD UREA NITROGEN 48 mg/dL (7-20); CALCIUM 8.1 mg/dL (8.4-10.2); CARBON DIOXIDE 23 mmol/L (22-30); CHLORIDE 97 mmol/L (98-107); GLUCOSE 108 mg/dL (75-110); POTASSIUM 4.3 mmol/L (3.6-5.0)
[2019-03-29] MEDS ORDERED: PRIMIDONE 50 MG TABLET ONE (05:43)
[2019-03-29] MEDS: LEVOTHYROXINE SODIUM 0.1 MG TABLET PO SCH (05:51)
[2019-03-29] MEDS: PRIMIDONE 50 MG TABLET PO SCH ×3 (05:52→21:39)
[2019-03-29] MEDS: PANTOPRAZOLE SODIUM 40 MG TABLET.DR PO SCH ×2 (05:52→17:41)
[2019-03-29] MEDS ORDERED: (PENDING PHARMACY ID) (Levothyroxine Sodium [Levothyroxine Sodium] 200 MCG) PO SCH (06:00)
[2019-03-29] MEDS: BUDESONIDE NEB 0.5 MG/2 ML AMPUL NEB SCH ×2 (08:16→19:32)
[2019-03-29] MEDS: ACETYLCYSTEINE 20% SOLN 800 MG/4 ML VIAL.NEB NEB SCH ×2 (08:18→19:32)
[2019-03-29] MEDS ORDERED: [UNRECOGNIZED DRUG - OTHER] PO SCH ×2 (10:00)
[2019-03-29] MEDS ORDERED: PRENATAL VITAMIN W DHA CAPSULE PO SCH (10:00)
[2019-03-29] MEDS ORDERED: FLUOXETINE HCL 20 MG CAPSULE PO SCH (10:00)
[2019-03-29] MEDS ORDERED: (PENDING PHARMACY ID) (Donepezil Hcl [Aricept] 10 MG) PO SCH (10:00)
[2019-03-29] MEDS ORDERED: PNV CALCIUM PO SCH ×2 (10:00)
[2019-03-29] MEDS ORDERED: PANTOPRAZOLE SODIUM 20 MG TABLET.DR PO SCH (10:00)
[2019-03-29] MEDS ORDERED: DONEPEZIL HCL 5 MG TABLET PO SCH (10:00)
[2019-03-29] MEDS ORDERED: DULOXETINE HCL 30 MG CAPSULE.DR PO SCH (10:00)
[2019-03-29] MEDS ORDERED: IRON PO SCH ×2 (10:00)
[2019-03-29] MEDS ORDERED: FOLIC ACID PO SCH ×2 (10:00)
[2019-03-29] MEDS ORDERED: FONDAPARINUX SODIUM INJ 7.5 MG/0.6 ML DISP.SYRIN SUBCUT SCH (10:00)
[2019-03-29] MEDS ORDERED: TORSEMIDE 20 MG TABLET PO SCH (10:00)
[2019-03-29] MEDS: CIPROFLOXACIN 400 MG/D5W RTU 400 MG/200 ML RTUPB IV SCH ×2 (10:12→21:43)
[2019-03-29] MEDS: NORMAL SALINE 1000 ML 1,000 ML IV SCH (10:13)
[2019-03-29] MEDS: FLUOXETINE HCL 20 MG CAPSULE PO SCH (10:19)
[2019-03-29] MEDS: METOLAZONE 5 MG TABLET PO SCH (10:20)
[2019-03-29] MEDS: DONEPEZIL HCL 5 MG TABLET PO SCH (10:21)
[2019-03-29] MEDS: PRENATAL VITAMIN W DHA CAPSULE PO SCH (10:21)
[2019-03-29] MEDS: SUCRALFATE 1 GM TABLET PO SCH ×4 (10:21→21:38)
[2019-03-29] MEDS: ATORVASTATIN CALCIUM 20 MG TABLET PO SCH (10:21)
[2019-03-29] MEDS: FERROUS SULFATE 325 MG TABLET PO SCH (10:21)
[2019-03-29] MEDS: GUAIFENESIN 600 MG TABLET.SA PO SCH ×2 (10:21→21:38)
[2019-03-29] MEDS: DULOXETINE HCL 30 MG CAPSULE.DR PO SCH (10:22)
[2019-03-29] MEDS: MAGNESIUM OXIDE 400 MG TABLET PO SCH (10:22)
[2019-03-29] MEDS: DOCUSATE SODIUM 100 MG CAPSULE PO SCH ×2 (10:22→17:37)
[2019-03-29] MEDS: POTASSIUM CHLORIDE 10 MEQ CAPSULE.ER PO SCH (10:22)
[2019-03-29] MEDS: FONDAPARINUX SODIUM INJ 7.5 MG/0.6 ML DISP.SYRIN SUBCUT SCH (10:23)
[2019-03-29] MEDS: FLUTICASONE NASAL SPRAY 50 MCG/SPRY 120 SPRAY/16 GM NASL SCH (10:23)
[2019-03-29] MEDS: ROPINIROLE HCL 0.25 MG TABLET PO SCH ×2 (10:24→17:42)
[2019-03-29] MEDS: ALPRAZOLAM 0.5 MG TABLET PO SCH ×4 (10:24→21:39)
[2019-03-29] MEDS: FLUTICASONE/UMECLIDIN/VILANTER 100-62.5-25 MCG/DOSE IH SCH (10:24)
[2019-03-29] MEDS: OXYCODONE HCL IR 5 MG TABLET PO PRN ×2 (10:43→17:45)
--- NOTE | 2019-03-29 11:01 | PDOC PROGRESS REPORT ---
Subjective Progress Note for:: 03/29/19 Subjective:: 03/29/2019-increased back pain Reason For Visit: ACUTE EXACERBATION OF COPD,ACUTE ON CHRONIC RESPIR Physical Exam Vital Signs: Temp Pulse Resp BP Pulse Ox 97.7 F 98 18 125/59 L 97 03/28/19 23:41 03/29/19 08:18 03/29/19 08:18 03/28/19 23:41 03/29/19 08:18 Intake & Output 03/28/19 03/29/19 03/30/19 06:59 06:59 06:59 Intake Total 1130 2396 Output Total 0 1000 Balance 1130 1396 Weight 112.2 kg 115 kg General appearance: PRESENT: no acute distress, well-developed, well-nourished Neck exam: ABSENT: carotid bruit, JVD, lymphadenopathy, thyromegaly Respiratory exam: PRESENT: decreased breath sounds. ABSENT: rales, rhonchi, wheezes Cardiovascular exam: PRESENT: RRR. ABSENT: diastolic murmur, rubs, systolic murmur Pulses: PRESENT: normal dorsalis pedis pul Vascular exam: PRESENT: normal capillary refill GI/Abdominal exam: PRESENT: normal bowel sounds, soft. ABSENT: distended, guarding, mass, organolmegaly, rebound, tenderness Extremities exam: PRESENT: full ROM. ABSENT: calf tenderness, clubbing, pedal edema Neurological exam: PRESENT: alert, awake, oriented to person, oriented to place, oriented to time, oriented to situation, CN II-XII grossly intact. ABSENT: motor sensory deficit Psychiatric exam: PRESENT: appropriate affect, normal mood. ABSENT: homicidal ideation, suicidal ideation Skin exam: PRESENT: dry, intact, warm. ABSENT: cyanosis, rash Results Laboratory Results: 03/29/19 04:38 03/29/19 04:38 03/29/19 03/29/19 04:38 04:38 WBC 15.5 H RBC 3.07 L Hgb 9.1 L Hct 27.8 L MCV 91 MCH 29.7 MCHC 32.7 RDW 16.2 H Plt Count 313 Sodium 134.3 L Potassium 4.3 Chloride 97 L Carbon Dioxide 23 Anion Gap 14 BUN 48 H Creatinine 2.64 H Est GFR ( Amer) 22 L Glucose 108 Calcium 8.1 L Magnesium 1.7 03/27/19 03/27/19 17:10 17:10 Creatine Kinase 317 H CK-MB (CK-2) 10.30 H Troponin I 0.016 Impressions: Chest X-Ray 03/27/19 17:15 IMPRESSION: Persistent right upper lobe opacification, pneumonia versus chronic change. Chest CT 03/28/19 00:00 IMPRESSION: Bilateral reticulonodular infiltrates, most likely due to infectious or inflammatory process. Assessment and Plan - Diagnosis (1) COPD (chronic obstructive pulmonary disease) Qualifiers: Chronic bronchitis type: unspecified Is this a current diagnosis for this admission?: Yes Plan: The patient is admitted to the medical floor and continuous cardiac telemetry. She is provided supplemental oxygen as needed to meet saturations 89 to 92%. She is placed on scheduled and as needed nebulizer treatments. Continue scheduled Mucomyst. IV meropenem is discontinued; will start IV ciprofloxacin for patient with COPD (Leukocytosis explained by steroid therapy, afebrile with clear lung sounds and acceptable vital signs). Continue IV Cipro and Solu-Medrol. Mucinex twice daily. Incentive spirometer and flutter valve to bedside. Ambulate the halls, out of bed for meals. Will obtain noncontrasted CT of the chest to evaluate the right upper lobe opacity noted on chest x-ray. This may also assist with evaluation of the patient's dysphasia. 03/29/2019-improved. Patient continues on IV Cipro and Solu-Medrol. She is given Mucinex incentive parameter and flutter valve the bedside. Chest CT shows bilateral reticulonodular processes most likely infectious or inflammatory in nature. No CT evaluation of dysphasia and available. 10 you to follow await cultures. (2) Acute kidney injury superimposed on chronic kidney disease Is this a current diagnosis for this admission?: Yes Plan: Creatinine of 3.42 on admission. 1.79 baseline. Likely secondary to poor p.o. intake; patient complains of dysphasia. Avoid nephrotoxic medications as able. Continue gentle IV fluid resuscitation. Speech therapy has cleared patient for nectar thickened liquids. Encourage p.o. intake. Daily chemistries. 03/29/2019-improved today. Creatinine down to 2.5. Continue to follow with daily BMPs. Continue gentle hydration (3) Anemia in chronic kidney disease Qualifiers: Chronic kidney disease stage: stage 3 (moderate) Qualified Code(s): N18.3 - Chronic kidney disease, stage 3 (moderate); D63.1 - Anemia in chronic kidney disease Is this a current diagnosis for this admission?: Yes Plan: Overall stable, it appears that the patient's baseline hemoglobin is 9.5. Continue daily multivitamin. Start ferrous sulfate daily with meals. A daily CBC will be obtained to monitor the patient's chronic anemia. 03/29/2019-chronic stable continue to follow daily CBCs (4) Hypertension Qualifiers: Hypertension type: essential hypertension Qualified Code(s): I10 - Essential (primary) hypertension Is this a current diagnosis for this admission?: Yes Plan: Normotensive at present. Continue home medication regiment of Ramipril and torsemide IV hydralazine as needed for blood pressure control. Cardiac diet. 03/29/2019-stable continue to follow (5) Hypothyroidism (acquired) Is this a current diagnosis for this admission?: Yes Plan: Continue home dose levothyroxine. 03/29/2019-continue current levothyroxine dose (6) Obesity Qualifiers: Obesity type: due to excess calories Serious obesity comorbidity presence: unspecified whether serious comorbidity present Body mass index: BMI 40.0-44.9 Is this a current diagnosis for this admission?: Yes Plan: Dietary discretion and lifestyle modification are encouraged. Patient is placed on a consistent carb, cardiac, prerenal diet. PT/OT are consulted. Employed in the halls daily, out of bed for meals. 03/29/2019-dietary lifestyle education (7) Opiate dependence, continuous Is this a current diagnosis for this admission?: Yes Plan: Chronic back pain. Reduce oxycodone schedule due to chronic respiratory failure. Encourage nonpharmacological interventions. 03/29/2019-chronic pain increased today. Will place patient back on her oxycodone 15 mg every 6 watch her resource status closely. (8) Dysphasia Is this a current diagnosis for this admission?: Yes Plan: Patient reports 24 hours of dysphasia resulting in reduced p.o. intake. Speech therapy has been consulted; recommend pured diet with nectar thickened liquids. Cookie swallow study ordered for Saturday. Aspiration precautions 03/29/2019-swallow evaluation a.m. Continue thickened liquids at this time (9) Depression Is this a current diagnosis for this admission?: Yes Plan: Continue home dose Cymbalta and Prozac. Of note the patient is also prescribed Lunesta, Aricept, Lomotil, Requip, oxycodone, and Xanax. The patient is displaying behaviors consistent with malingering; have asked mental health services to evaluate the patient for additional underlying mental health disorders and to make medication recommendations. 03/29/2019-continue home antidepressants (10) Acute and chronic respiratory failure with hypoxia Is this a current diagnosis for this admission?: Yes Plan: Acute respiratory failure with hypoxia has resolved. Patient is now maintaining oxygen saturations while on room air. 94% while at rest, normal heart rate, normal respiratory rate. She currently has clear lung sounds. Have decreased the patient's oxycodone and Ativan dosing secondary to chronic respiratory failure. We will continue to manage COPD exacerbation as above. 03/29/2019-improved. Patient's O2 sats 94% on 2 L. Continue BiPAP as needed. Continue to follow. COPD exacerbations will be monitored for and treated when appropriate needed. - Time Time Spent with patient: 15-24 minutes - Inpatient Certification Based on my medical assessment, after consideration of the patient's comorbidities, presenting symptoms, or acuity I expect that the services needed warrant INPATIENT care.: Yes I certify that my determination is in accordance with my understanding of Medicare's requirements for reasonable and necessary INPATIENT services [42 CFR 412.3e].: Yes Medical Necessity: Other - IV antibiotics
--- NOTE | 2019-03-29 18:54 | EKG REPORT ---
SEVERITY:- ABNORMAL ECG - SINUS TACHYCARDIA BORDERLINE INFERIOR Q WAVES : Confirmed by: Priscilla Reddy 29-Mar-2019 18:53:00
[2019-03-29] MEDS: LUNESTA 3 MG PO SCH (21:38)
[2019-03-29] MEDS: CETIRIZINE 5 MG TABLET PO SCH (21:39)
[2019-03-29] MEDS: RAMIPRIL 2.5 MG CAPSULE PO SCH (21:42)
[2019-03-30 05:25] LABS: HEMATOCRIT 23.2 % (36.0-47.0); MEAN CORPUSCULAR HEMOGLOBIN 30.5 pg (27.0-33.4); MEAN CORPUSCULAR VOLUME 90 fl (80-97); PLATELET COUNT 225 10^3/uL (150-450); RED BLOOD COUNT 2.58 10^6/uL (3.72-5.28); RED CELL DISTRIBUTION WIDTH 16.2 % (11.5-14.0); WHITE BLOOD COUNT 9.2 10^3/uL (4.0-10.5)
[2019-03-30 05:28] LABS: HEMOGLOBIN 7.9 g/dL (12.0-15.5)
[2019-03-30 05:40] LABS: ANION GAP 7 (5-19); BLOOD UREA NITROGEN 46 mg/dL (7-20); CALCIUM 7.5 mg/dL (8.4-10.2); CARBON DIOXIDE 28 mmol/L (22-30); CHLORIDE 100 mmol/L (98-107); GLUCOSE 87 mg/dL (75-110); POTASSIUM 4.2 mmol/L (3.6-5.0)
[2019-03-30] MEDS: PANTOPRAZOLE SODIUM 40 MG TABLET.DR PO SCH ×2 (06:07→18:41)
[2019-03-30] MEDS: PRIMIDONE 50 MG TABLET PO SCH ×3 (06:07→22:15)
[2019-03-30] MEDS: LEVOTHYROXINE SODIUM 0.1 MG TABLET PO SCH (06:07)
[2019-03-30] MEDS: IPRATROPIUM BROMIDE 0.02% NEB 0.5 MG/2.5 ML AMPUL NEB SCH ×3 (08:16→23:42)
[2019-03-30] MEDS: LEVALBUTEROL HCL NEB 1.25 MG/3 ML AMPUL NEB SCH ×3 (08:16→23:42)
[2019-03-30] MEDS: BUDESONIDE NEB 0.5 MG/2 ML AMPUL NEB SCH ×2 (08:16→20:44)
[2019-03-30] MEDS: ACETYLCYSTEINE 20% SOLN 800 MG/4 ML VIAL.NEB NEB SCH ×2 (08:16→20:43)
--- NOTE | 2019-03-30 09:04 | PDOC PROGRESS REPORT ---
Subjective Progress Note for:: 03/30/19 Subjective:: 03/29/2019-increased back pain 03/30/2019 dysphasia Reason For Visit: ACUTE EXACERBATION OF COPD,ACUTE ON CHRONIC RESPIR Physical Exam Vital Signs: Temp Pulse Resp BP Pulse Ox 97.5 F 97 20 123/58 L 100 03/29/19 23:31 03/30/19 08:16 03/30/19 08:16 03/29/19 23:31 03/30/19 08:16 Intake & Output 03/29/19 03/30/19 03/31/19 06:59 06:59 06:59 Intake Total 2396 1750 Output Total 1000 2250 Balance 1396 -500 Weight 115 kg 119 kg General appearance: PRESENT: no acute distress, well-developed, well-nourished Neck exam: ABSENT: carotid bruit, JVD, lymphadenopathy, thyromegaly Respiratory exam: PRESENT: decreased breath sounds, symmetrical, unlabored, wheezes. ABSENT: rales, rhonchi Cardiovascular exam: PRESENT: RRR. ABSENT: diastolic murmur, rubs, systolic murmur Pulses: PRESENT: normal dorsalis pedis pul Vascular exam: PRESENT: normal capillary refill GI/Abdominal exam: PRESENT: normal bowel sounds, soft. ABSENT: distended, guarding, mass, organolmegaly, rebound, tenderness Gentrourinary exam: PRESENT: indwelling catheter Extremities exam: ABSENT: clubbing, pedal edema Neurological exam: PRESENT: alert, awake, oriented to person, oriented to place, oriented to time, oriented to situation, CN II-XII grossly intact. ABSENT: motor sensory deficit Psychiatric exam: PRESENT: appropriate affect, normal mood. ABSENT: homicidal ideation, suicidal ideation Skin exam: PRESENT: dry, intact, warm. ABSENT: cyanosis, rash Results Laboratory Results: 03/30/19 04:59 03/30/19 04:59 03/30/19 03/30/19 04:59 04:59 WBC 9.2 RBC 2.58 L Hgb 7.9 L Hct 23.2 L MCV 90 MCH 30.5 MCHC 34.0 RDW 16.2 H Plt Count 225 Sodium 134.8 L Potassium 4.2 Chloride 100 Carbon Dioxide 28 Anion Gap 7 BUN 46 H Creatinine 1.76 H Est GFR ( Amer) 35 L Glucose 87 Calcium 7.5 L Magnesium 1.6 03/28/19 02:20 Rodriguez Catheter Urine Culture - Final Yeast, Not Caryn Albicans 03/27/19 03/27/19 17:10 17:10 Creatine Kinase 317 H CK-MB (CK-2) 10.30 H Troponin I 0.016 Impressions: Chest X-Ray 03/27/19 17:15 IMPRESSION: Persistent right upper lobe opacification, pneumonia versus chronic change. Chest CT 03/28/19 00:00 IMPRESSION: Bilateral reticulonodular infiltrates, most likely due to infectious or inflammatory process. Assessment and Plan - Diagnosis (1) COPD (chronic obstructive pulmonary disease) Qualifiers: Chronic bronchitis type: unspecified Is this a current diagnosis for this admission?: Yes Plan: The patient is admitted to the medical floor and continuous cardiac telemetry. She is provided supplemental oxygen as needed to meet saturations 89 to 92%. She is placed on scheduled and as needed nebulizer treatments. Continue scheduled Mucomyst. IV meropenem is discontinued; will start IV ciprofloxacin for patient with COPD (Leukocytosis explained by steroid therapy, afebrile with clear lung sounds and acceptable vital signs). Continue IV Cipro and Solu-Medrol. Mucinex twice daily. Incentive spirometer and flutter valve to bedside. Ambulate the halls, out of bed for meals. Will obtain noncontrasted CT of the chest to evaluate the right upper lobe opacity noted on chest x-ray. This may also assist with evaluation of the patient's dysphasia. 03/29/2019-improved. Patient continues on IV Cipro and Solu-Medrol. She is given Mucinex incentive parameter and flutter valve the bedside. Chest CT shows bilateral reticulonodular processes most likely infectious or inflammatory in nature. No CT evaluation of dysphasia and available. 10 you to follow await cultures. 03/30/2019-improved. Continue bronchodilators, will switch from Solu-Medrol to p.o. prednisone. Continue IV Cipro. Continue Mucinex incentive spirometry and flutter valve at bedside. (2) Acute kidney injury superimposed on chronic kidney disease Is this a current diagnosis for this admission?: Yes Plan: Creatinine of 3.42 on admission. 1.79 baseline. Likely secondary to poor p.o. intake; patient complains of dysphasia. Avoid nephrotoxic medications as able. Continue gentle IV fluid resuscitation. Speech therapy has cleared patient for nectar thickened liquids. Encourage p.o. intake. Daily chemistries. 03/29/2019-improved today. Creatinine down to 2.5. Continue to follow with daily BMPs. Continue gentle hydration 03/30/2019-improved today even more creatinine down to 1.6. Continue gentle hydration with normal saline at 75 mL an hour. Follow daily BMPs (3) Anemia in chronic kidney disease Qualifiers: Chronic kidney disease stage: stage 3 (moderate) Qualified Code(s): N18.3 - Chronic kidney disease, stage 3 (moderate); D63.1 - Anemia in chronic kidney disease Is this a current diagnosis for this admission?: Yes Plan: Overall stable, it appears that the patient's baseline hemoglobin is 9.5. Continue daily multivitamin. Start ferrous sulfate daily with meals. A daily CBC will be obtained to monitor the patient's chronic anemia. 03/29/2019-chronic stable continue to follow daily CBCs 03/30/2019-chronic. Worse today with hemoglobin 7.6. I suspect this is mostly hemodilution all. We will continue to follow daily CBCs (4) Hypertension Qualifiers: Hypertension type: essential hypertension Qualified Code(s): I10 - Essential (primary) hypertension Is this a current diagnosis for this admission?: Yes Plan: Normotensive at present. Continue home medication regiment of Ramipril and torsemide IV hydralazine as needed for blood pressure control. Cardiac diet. 03/29/2019-stable continue to follow 03/30/2019-stable continue to follow (5) Hypothyroidism (acquired) Is this a current diagnosis for this admission?: Yes Plan: Continue home dose levothyroxine. 03/29/2019-continue current levothyroxine dose 03/30/2019-continue levothyroxine (6) Obesity Qualifiers: Obesity type: due to excess calories Serious obesity comorbidity presence: unspecified whether serious comorbidity present Body mass index: BMI 40.0-44.9 Is this a current diagnosis for this admission?: Yes Plan: Dietary discretion and lifestyle modification are encouraged. Patient is placed on a consistent carb, cardiac, prerenal diet. PT/OT are consulted. Employed in the halls daily, out of bed for meals. 03/29/2019-dietary lifestyle education 03/30/2019-continue to educate about dietary lifestyle changes (7) Opiate dependence, continuous Is this a current diagnosis for this admission?: Yes Plan: Chronic back pain. Reduce oxycodone schedule due to chronic respiratory failure. Encourage nonpharmacological interventions. 03/29/2019-chronic pain increased today. Will place patient back on her oxycodone 15 mg every 6 watch her resource status closely. 03/30/2019-chronic, stable. Need follow (8) Dysphasia Is this a current diagnosis for this admission?: Yes Plan: Patient reports 24 hours of dysphasia resulting in reduced p.o. intake. Speech therapy has been consulted; recommend pured diet with nectar thickened liquids. Cookie swallow study ordered for Saturday. Aspiration precautions 03/29/2019-swallow evaluation a.m. Continue thickened liquids at this time 03/30/2019-patient undergoing swallow evaluation as a.m. will await the regulations for dietary needs (9) Depression Is this a current diagnosis for this admission?: Yes Plan: Continue home dose Cymbalta and Prozac. Of note the patient is also prescribed Lunesta, Aricept, Lomotil, Requip, oxycodone, and Xanax. The patient is displaying behaviors consistent with malingering; have asked mental health services to evaluate the patient for additional underlying mental health disorders and to make medication recommendations. 03/29/2019-continue home antidepressants 03/30/2019-continue antidepressants (11) Acute and chronic respiratory failure with hypoxia Is this a current diagnosis for this admission?: Yes Plan: Acute respiratory failure with hypoxia has resolved. Patient is now maintaining oxygen saturations while on room air. 94% while at rest, normal heart rate, normal respiratory rate. She currently has clear lung sounds. Have decreased the patient's oxycodone and Ativan dosing secondary to chronic respiratory failure. We will continue to manage COPD exacerbation as above. 03/29/2019-improved. Patient's O2 sats 94% on 2 L. Continue BiPAP as needed. Continue to follow. COPD exacerbations will be monitored for and treated when appropriate needed. 03/30/2019-patient continues to show improvement. Will have physical therapy get patient out of bed this morning into the chair. Have patient mobilize as much as possible. Will remove Rodriguez catheter today. (12) Hypocalcemia Is this a current diagnosis for this admission?: Yes Plan: 03/30/2019-calcium corrected for albumin to 7.7. I will give 2 g of calcium gluconate repeat calcium level in a.m. - Time Time Spent with patient: 25-34 minutes - Inpatient Certification Based on my medical assessment, after consideration of the patient's comorbidities, presenting symptoms, or acuity I expect that the services needed warrant INPATIENT care.: Yes I certify that my determination is in accordance with my understanding of Medicare's requirements for reasonable and necessary INPATIENT services [42 CFR 412.3e].: Yes Medical Necessity: Other - IV fluids, IV fluids, IV antibiotics
[2019-03-30] MEDS ORDERED: CALCIUM GLUCONATE 2,000 MG in DEXTROSE 5%-WATER 100 ML IV ONE (09:30)
--- NOTE | 2019-03-30 10:20 | RADIOLOGY REPORT (SQ) ---
EXAM DESCRIPTION: BLANCA SWALLOW COMPLETED DATE/TIME: 03/30/2019 9:58 am REASON FOR STUDY: dysphagia COMPARISON: None. TECHNIQUE: Videofluoroscopic swallowing examination was performed in conjunction with speech patholo gy. Videofluoroscopic imaging was obtained and reviewed and these are the findings: RADIATION DOSE: Fluoro time 3.59 minutes 1 images saved to PACS. LIMITATIONS: None FINDINGS: The patient was brought into the fluoro room and placed upright on a modified barium swall ow chair. The patient was then given multiple consistencies mixed with barium to swallow under live fluoroscopic video guidance. According to the Speech Pathologist there was a single episode of laryn geal penetration seen with thin barium. No aspiration identified. All other consistencies swallowed without incident. Please refer to the speech pathology report for further details. IMPRESSION: SINGLE EPISODE OF LARYNGEAL PENETRATION WITH THIN BARIUM, NO ASPIRATION IDENTIFIED. PLEA SE SEE SPEECH PATHOLOGIST REPORT FOR OTHER FINDINGS AND RECOMMENDATIONS. COMMENT: NONE Quality ID [id number]: Final reports for procedures using fluoroscopy that document radiation exposure gage eleanor, or exposure time and number of fluorographic images (if radiation exposure indices are not avail able) TECHNICAL DOCUMENTATION: JOB ID: [id number] [employer]- All Rights Reserved Reading location - IP/workstation name: [email or web address] [id number]
[2019-03-30] MEDS: NORMAL SALINE 1000 ML 1,000 ML IV SCH (10:28)
[2019-03-30] MEDS: ATORVASTATIN CALCIUM 20 MG TABLET PO SCH (10:30)
[2019-03-30] MEDS: PRENATAL VITAMIN W DHA CAPSULE PO SCH (10:30)
[2019-03-30] MEDS: GUAIFENESIN 600 MG TABLET.SA PO SCH ×2 (10:30→22:14)
[2019-03-30] MEDS: DULOXETINE HCL 30 MG CAPSULE.DR PO SCH (10:30)
[2019-03-30] MEDS: FLUCONAZOLE 100 MG TABLET PO SCH (10:30)
[2019-03-30] MEDS: PREDNISONE 20 MG TABLET PO SCH (10:31)
[2019-03-30] MEDS: FLUOXETINE HCL 20 MG CAPSULE PO SCH (10:31)
[2019-03-30] MEDS: DONEPEZIL HCL 5 MG TABLET PO SCH (10:31)
[2019-03-30] MEDS: FERROUS SULFATE 325 MG TABLET PO SCH (10:31)
[2019-03-30] MEDS: SUCRALFATE 1 GM TABLET PO SCH ×4 (10:32→22:16)
[2019-03-30] MEDS: METOLAZONE 5 MG TABLET PO SCH (10:32)
[2019-03-30] MEDS: POTASSIUM CHLORIDE 10 MEQ CAPSULE.ER PO SCH (10:32)
[2019-03-30] MEDS: ALPRAZOLAM 0.5 MG TABLET PO SCH ×4 (10:32→22:14)
[2019-03-30] MEDS: FONDAPARINUX SODIUM INJ 7.5 MG/0.6 ML DISP.SYRIN SUBCUT SCH (10:33)
[2019-03-30] MEDS: DOCUSATE SODIUM 100 MG CAPSULE PO SCH ×2 (10:33→18:29)
[2019-03-30] MEDS: FLUTICASONE NASAL SPRAY 50 MCG/SPRY 120 SPRAY/16 GM NASL SCH (10:33)
[2019-03-30] MEDS: FLUTICASONE/UMECLIDIN/VILANTER 100-62.5-25 MCG/DOSE IH SCH (10:33)
[2019-03-30] MEDS: ROPINIROLE HCL 0.25 MG TABLET PO SCH ×2 (10:34→18:34)
[2019-03-30] MEDS: CIPROFLOXACIN 400 MG/D5W RTU 400 MG/200 ML RTUPB IV SCH ×2 (10:35→22:12)
[2019-03-30] MEDS: OXYCODONE HCL IR 5 MG TABLET PO PRN ×2 (10:44→18:41)
--- NOTE | 2019-03-30 11:26 | ST Inp Modified Barium Swallow ---
Medical Diagnosis - Medical Diagnoses Medical Diagnosis Description & ICD-10 Code(s): COPD, acute and chronic respiratory failure with hypoxia, dysphagia ST Inpatient [facility] [place] - General Date: 03/30/19 - History History Obtained From: Patient - Per patient, she reports that she "can not swallow" sometimes with additional questioning patient clarified to say that she feels like she can not initiate swallow. Patient also reports that throat feels a little sore and swollen when swallowing. Not eating much on current diet, with coughing persisting. -: Medical - Patient admitted with complaint of 2 day history of dyspnea. Current diagnosis for admission include COPD, acute and chronic respiratory failure with hypoxia, dysphagia, HTN, acute and chronic kidney disease. Past medical history includes PNA, COPD, asthma, CHF, and HTN. Seen for bedside swallow evaluation on (03/27/19) indicating coughing with thin liquid, with diet recommendation of nectar thick liquids and puree. Chest CT (03/28/2019) revealed bilateral reticlonodular infiltrates, concerning for infectious or inflammatory process. CN II- CN XII grossly intact. Medications: Medications Reviewed - yes Allergies: Refer to medical record - Subjective Current Nutritional Means: PO Current PO Diet: Pureed, Thickened liquids - nectar Current Symptoms: Coughing, c/o Globus sensation Pain: no signs/symptoms of pain - Objective Assessment: Upright - Food Trials Food Trials Used: Thin liquids, Pureed, Regular The Patient: Was Able to Self Feed, fed by ST, via cup, via spoon, via straw - Assessment Labial Function: Within Normal Limits Lingual Function: Within Normal Limits Mandibular Function: Within Normal Limits Dentition: Full Velo-Pharyngeal Function: Not assessed Laryngeal Function: Volitional Cough, Throat Clear, clear voicing - Pharyngeal Stage Initiation of Pharyngeal Stage: Normal Decreased Laryngeal Elevation: No Reduced Velo-Pharyngeal Closure: no Reduced Pressure Generation: No Reduced Tongue Base Retraction: No Pre-Swallowing Pooling in Valleculae: Mild Pre-Swallowing Pooling in Pyriforms: None Reduced Thyro-Hyiod Approximation: No Reduced Epiglottic Excursion: No Reduced Pharyngeal Peristalsis: No Multiple Swallows With: Effective - with regular solids Post Swallow Residuals in Valleculae: None Post Swallow Residuals in Pyriforms: None Post Swallow Residuals: tongue-base - and oral cavity with regular solids Pahryngeal Stage Comments: Patient presents with mild oral-pharyngeal dysphagia characterized by penetration with thin liquid x1 and increased mastication time and need for multiple swallows with regular solids for oral cavity clearance. One instance of penetration occurred with larger sip of thin liquid during the swallow. Patient was able to clear penetrates with cued throat clear and subsequent swallow. Overall timing of swallow was adequate; however, patient reported that she could not initiate swallow and held liquid bolus at the base of tongue and in the vallecula for approximately 5 seconds and eventual swallow without airway compromise. Cough heard throughout session in the absence of PO or airway compromise. Given limited observed penetration and overtly functional swallow physiology, recommend thin liquid and mechanical soft solids with throat clear following 3-4 swallows. Recommend aspiration precautions: sitting upright, small sips/bites, and alert for oral intake. PERSONAL INJURY SPECIALIST will follow up x1 to ensure compliance with aspiration precautions and compensatory strategy and further monitor in-ability to swallow. - Esophageal Stage Cricophageal Function: Normal Upper Esophageal Transit: Normal Esophageal Stasis/Dysmotility: No Cervical Osteophytes Noted: No - Impression/Summary Laryngeal Penetration: Yes, Silent, Cleared - with cued thraot clear x1, during swallow Tracheal Aspiration: no Effective Clearing: yes Effective Compensatory Strategies: throat clear & reswallow Compensatory Strategies: With single observed instance of penetration, patient was able to clear penetrates with cued throat clear and re-swallow compensatory strategy. Patient Presents With: Oral-Pharyngeal dysph. Risk of Aspiration: Mild Risk of Nutritional Compromise: Mild Risk Due To: Current respiratory condition, single instance of penetration - Recommendations NPO: no Solid Diet Recommendations: Mechanical Soft Liquid Diet Recommendations: Thin Strict Aspitarion Precautions: Yes - throat clear and re-swallow Dysphagia Therapy with PERSONAL INJURY SPECIALIST: Yes - follow up x1 to monitor use of compensatory strategies and aspiration precautions Recommended Techniques: Fully Upright During Meal, Small Bites and Sips Supervision: Independent Other Recommendations: throat clear every 3-4 swallows - Time Total Time: 33 Total Timed Minutes: 33
[2019-03-30] MEDS: RAMIPRIL 2.5 MG CAPSULE PO SCH (22:13)
[2019-03-30] MEDS: CETIRIZINE 5 MG TABLET PO SCH (22:15)
[2019-03-30] MEDS: LUNESTA 3 MG PO SCH (22:16)
[2019-03-31 05:11] LABS: HEMATOCRIT 26.4 % (36.0-47.0); MEAN CORPUSCULAR HEMOGLOBIN 30.4 pg (27.0-33.4); MEAN CORPUSCULAR VOLUME 89 fl (80-97); PLATELET COUNT 255 10^3/uL (150-450); RED BLOOD COUNT 2.96 10^6/uL (3.72-5.28); RED CELL DISTRIBUTION WIDTH 16.3 % (11.5-14.0); WHITE BLOOD COUNT 9.3 10^3/uL (4.0-10.5)
[2019-03-31 05:31] LABS: ANION GAP 7 (5-19); BLOOD UREA NITROGEN 32 mg/dL (7-20); CALCIUM 8.5 mg/dL (8.4-10.2); CARBON DIOXIDE 28 mmol/L (22-30); CHLORIDE 101 mmol/L (98-107); GLUCOSE 74 mg/dL (75-110); POTASSIUM 4.1 mmol/L (3.6-5.0)
[2019-03-31] MEDS: LEVOTHYROXINE SODIUM 0.1 MG TABLET PO SCH (06:54)
[2019-03-31] MEDS: PRIMIDONE 50 MG TABLET PO SCH ×3 (06:54→22:25)
[2019-03-31] MEDS: PANTOPRAZOLE SODIUM 40 MG TABLET.DR PO SCH ×2 (06:55→18:25)
[2019-03-31] MEDS: OXYCODONE HCL IR 5 MG TABLET PO PRN ×3 (07:02→22:22)
[2019-03-31] MEDS: LEVALBUTEROL HCL NEB 1.25 MG/3 ML AMPUL NEB SCH ×3 (09:01→23:17)
[2019-03-31] MEDS: IPRATROPIUM BROMIDE 0.02% NEB 0.5 MG/2.5 ML AMPUL NEB SCH ×3 (09:02→23:17)
[2019-03-31] MEDS: BUDESONIDE NEB 0.5 MG/2 ML AMPUL NEB SCH ×2 (09:02→21:06)
[2019-03-31] MEDS: ACETYLCYSTEINE 20% SOLN 800 MG/4 ML VIAL.NEB NEB SCH ×2 (09:02→21:05)
[2019-03-31] MEDS: DULOXETINE HCL 30 MG CAPSULE.DR PO SCH (11:04)
[2019-03-31] MEDS: FLUOXETINE HCL 20 MG CAPSULE PO SCH (11:04)
[2019-03-31] MEDS: POTASSIUM CHLORIDE 10 MEQ CAPSULE.ER PO SCH (11:04)
[2019-03-31] MEDS: ALPRAZOLAM 0.5 MG TABLET PO SCH ×4 (11:05→22:23)
[2019-03-31] MEDS: DONEPEZIL HCL 5 MG TABLET PO SCH (11:05)
[2019-03-31] MEDS: FLUCONAZOLE 100 MG TABLET PO SCH (11:06)
[2019-03-31] MEDS: METOLAZONE 5 MG TABLET PO SCH (11:06)
[2019-03-31] MEDS: DOCUSATE SODIUM 100 MG CAPSULE PO SCH ×2 (11:06→18:13)
[2019-03-31] MEDS: PREDNISONE 20 MG TABLET PO SCH (11:06)
[2019-03-31] MEDS: GUAIFENESIN 600 MG TABLET.SA PO SCH ×2 (11:07→22:25)
[2019-03-31] MEDS: PRENATAL VITAMIN W DHA CAPSULE PO SCH (11:07)
[2019-03-31] MEDS: FERROUS SULFATE 325 MG TABLET PO SCH (11:07)
[2019-03-31] MEDS: SUCRALFATE 1 GM TABLET PO SCH ×4 (11:07→22:24)
[2019-03-31] MEDS: FLUTICASONE NASAL SPRAY 50 MCG/SPRY 120 SPRAY/16 GM NASL SCH (11:07)
[2019-03-31] MEDS: ATORVASTATIN CALCIUM 20 MG TABLET PO SCH (11:07)
[2019-03-31] MEDS: ROPINIROLE HCL 0.25 MG TABLET PO SCH ×2 (11:08→18:28)
[2019-03-31] MEDS: FONDAPARINUX SODIUM INJ 7.5 MG/0.6 ML DISP.SYRIN SUBCUT SCH (11:09)
[2019-03-31] MEDS: CIPROFLOXACIN 400 MG/D5W RTU 400 MG/200 ML RTUPB IV SCH ×2 (11:09→22:22)
[2019-03-31] MEDS: FLUTICASONE/UMECLIDIN/VILANTER 100-62.5-25 MCG/DOSE IH SCH (11:10)
[2019-03-31] MEDS: NORMAL SALINE 1000 ML 1,000 ML IV SCH (11:43)
[2019-03-31] MEDS ORDERED: LIDOCAINE 2% JELLY 5 ML TUBE TOP ONE (13:45)
[2019-03-31] MEDS: DICYCLOMINE HCL 10 MG CAPSULE PO PRN (14:42)
--- NOTE | 2019-03-31 15:59 | PSYCHOLOGICAL NOTE ---
Psych Note - Psych Note Date seen by psych provider: 03/31/19 Time seen by psych provider: 18:15 Psych Note: Reason For Consult:Evaluation Consent Permissions: Patient's at bedside per patient's request Patient reports that she has lived in [facility] since [facility]. She reports history of depression, anxiety and panic attacks. She discloses significant difficulties with her respiratory functions stating all her life she has had asthma however approximately 2 years ago she started having increased difficulties. She reports that in June they started to state COPD. Patient reports she sees a neurologist and behavioral health at [facility]. Both patient and patient's expressed frustration not being able to get home oxygen in order to address her "episodes" at home. Clinician notes during evaluation while patient was talking oxygen levels dropped into the 80s. Clinician will was able to speak with the patient's separately to discuss his frustration in not being able to get home oxygen for his . He reports that they always states she does not qualify however when she is at the hospital she just has to walk from the bed to the door and immediately needs oxygen. Clinician discussed the possibility that while the patient is at the hospital she is not engaging in normal activities that she does at home. When being evaluated to determine level of need they look at the entire stay average. If patient is not engaging in the same activities (i.e. getting up to go to the bathroom or walking) she will not actively reflect her need. Patient is alert and orientated to person, place, time and circumstance. Mood is euthymic with congruent affect. Patient denies suicidal and homicidal ideation. Delusions are absent and behaviors congruent with an intact reality based presentation I organized and linear thought process. Eye contact is well- maintained. Conversational speech is within normal rate, tone and prosody. Intellectual abilities appear to be within the average range. Attention and concentration are good. Insight, judgment, impulse control are fair. Diagnosis: Depression per history provided by patient Anxiety per history provided by patient Cluster B personality traits are noted Medication recommendations per [facility]'s contracted psychiatrist Dr. Elbert PAZ are as follows No medication recommendations at this time Impression\\plan: Patient is cleared from acute psychiatric services. Clinician notes patient was well put together with hair and jewelry. Cluster B personality traits are noted and it appears the patient craves the assistance she received from [facility] staff. Both patient and patient's clearly expressed wanting home oxygen however state that she never qualifies. At this time it does not appear the patient would be open to discuss with clinician the possibility of needing to do more things for herself at the hospital. Patient was also having difficulty engaging in conversation as her oxygen levels would drop. Since patient provided consent for her , clinician discussed the need for the patient to engage in daily activities such as walking to use the restroom and up and down the hallway, so her true level of need can be determined. Dr. Gale was consulted to care management of this patient; attending physicians in agreement with recommendations and disposition.
--- NOTE | 2019-03-31 18:59 | PDOC PROGRESS REPORT ---
Subjective Progress Note for:: 03/31/19 Subjective:: The patient is a 63-year-old female with a past medical history significant for CHF, hypertension, hyperlipidemia, asthma, COPD, multiple admissions for pneumonia, hypothyroidism, obesity, CVA with residual left-sided weakness, CKD, arthritis/chronic pain, and depression who was admitted 03/27/2019 for COPD exacerbation after being discharged from our facility 2 days ago following treatment for community-acquired pneumonia. Patient was strongly encouraged to consider inpatient short-term rehabilitation during last admission which patient and declined. She was discharged home with home health services. 03/31/2019. No acute events overnight. Reason For Visit: ACUTE EXACERBATION OF COPD,ACUTE ON CHRONIC RESPIR Physical Exam Vital Signs: Temp Pulse Resp BP Pulse Ox 97.8 F 90 16 122/49 L 96 03/31/19 15:32 03/31/19 16:40 03/31/19 16:40 03/31/19 15:32 03/31/19 16:40 Intake & Output 03/30/19 03/31/19 04/01/19 06:59 06:59 06:59 Intake Total 1750 2726 666 Output Total 2250 1100 850 Balance -500 1626 -184 Weight 119 kg 119 kg General appearance: PRESENT: morbidly obese Head exam: PRESENT: atraumatic, normocephalic Respiratory exam: PRESENT: clear to auscultation allison. ABSENT: rales, rhonchi, wheezes Cardiovascular exam: PRESENT: RRR. ABSENT: diastolic murmur, rubs, systolic murmur Neurological exam: PRESENT: alert, awake, oriented to person, oriented to place, oriented to time, oriented to situation, CN II-XII grossly intact. ABSENT: motor sensory deficit Results Laboratory Results: 03/31/19 04:32 03/31/19 04:32 03/31/19 03/31/19 04:32 04:32 WBC 9.3 RBC 2.96 L Hgb 9.0 L Hct 26.4 L MCV 89 MCH 30.4 MCHC 34.0 RDW 16.3 H Plt Count 255 Sodium 136.1 L Potassium 4.1 Chloride 101 Carbon Dioxide 28 Anion Gap 7 BUN 32 H Creatinine 1.19 Est GFR ( Amer) 55 L Glucose 74 L Calcium 8.5 03/27/19 03/27/19 17:10 17:10 Creatine Kinase 317 H CK-MB (CK-2) 10.30 H Troponin I 0.016 Impressions: Chest X-Ray 03/27/19 17:15 IMPRESSION: Persistent right upper lobe opacification, pneumonia versus chronic change. Chest CT 03/28/19 00:00 IMPRESSION: Bilateral reticulonodular infiltrates, most likely due to infectious or inflammatory process. Modified Barium Swallow 03/30/19 00:00 IMPRESSION: SINGLE EPISODE OF LARYNGEAL PENETRATION WITH THIN BARIUM, NO ASPIRATION IDENTIFIED. PLEASE SEE SPEECH PATHOLOGIST REPORT FOR OTHER FINDINGS AND RECOMMENDATIONS. Assessment and Plan - Diagnosis (1) Acute and chronic respiratory failure with hypoxia Is this a current diagnosis for this admission?: Yes Plan: Acute respiratory failure with hypoxia has resolved. Patient is now maintaining oxygen saturations while on room air. 94% while at rest, normal heart rate, normal respiratory rate. She currently has clear lung sounds. Have decreased the patient's oxycodone and Ativan dosing secondary to chronic respiratory failure. We will continue to manage COPD exacerbation as above. 03/29/2019-improved. Patient's O2 sats 94% on 2 L. Continue BiPAP as needed. Continue to follow. COPD exacerbations will be monitored for and treated when appropriate needed. 03/30/2019-patient continues to show improvement. Will have physical therapy get patient out of bed this morning into the chair. Have patient mobilize as much as possible. Will remove Rodriguez catheter today. (2) Anemia in chronic kidney disease Qualifiers: Chronic kidney disease stage: stage 3 (moderate) Qualified Code(s): N18.3 - Chronic kidney disease, stage 3 (moderate); D63.1 - Anemia in chronic kidney disease Is this a current diagnosis for this admission?: Yes Plan: Overall stable, it appears that the patient's baseline hemoglobin is 9.5. Continue daily multivitamin. Start ferrous sulfate daily with meals. A daily CBC will be obtained to monitor the patient's chronic anemia. 03/29/2019-chronic stable continue to follow daily CBCs 03/30/2019-chronic. Worse today with hemoglobin 7.6. I suspect this is mostly hemodilution all. We will continue to follow daily CBCs (3) COPD (chronic obstructive pulmonary disease) Qualifiers: Chronic bronchitis type: unspecified Is this a current diagnosis for this admission?: Yes Plan: Continue IV Cipro and Steroids. Mucinex twice daily. Incentive spirometer and flutter valve to bedside. Ambulate the halls, out of bed for meals. (4) Dysphasia Is this a current diagnosis for this admission?: Yes Plan: Patient reports 24 hours of dysphasia resulting in reduced p.o. intake. Speech therapy has been consulted; recommend pured diet with nectar thickened liquids. Cookie swallow study ordered for Saturday. Aspiration precautions 03/29/2019-swallow evaluation a.m. Continue thickened liquids at this time 03/30/2019-patient undergoing swallow evaluation as a.m. will await the regulations for dietary needs (5) Hypertension Qualifiers: Hypertension type: essential hypertension Qualified Code(s): I10 - Essential (primary) hypertension Is this a current diagnosis for this admission?: Yes Plan: Normotensive at present. Continue home medication regiment of Ramipril and torsemide IV hydralazine as needed for blood pressure control. Cardiac diet. 03/29/2019-stable continue to follow 03/30/2019-stable continue to follow (6) Hypothyroidism (acquired) Is this a current diagnosis for this admission?: Yes Plan: Continue home dose levothyroxine. 03/29/2019-continue current levothyroxine dose 03/30/2019-continue levothyroxine (7) Obesity Qualifiers: Obesity type: due to excess calories Serious obesity comorbidity presence: unspecified whether serious comorbidity present Body mass index: BMI 40.0-44.9 Is this a current diagnosis for this admission?: Yes Plan: Dietary discretion and lifestyle modification are encouraged. Patient is placed on a consistent carb, cardiac, prerenal diet. PT/OT are consulted. Employed in the halls daily, out of bed for meals. 03/29/2019-dietary lifestyle education 03/30/2019-continue to educate about dietary lifestyle changes (8) Opiate dependence, continuous Is this a current diagnosis for this admission?: Yes Plan: Chronic back pain. Reduce oxycodone schedule due to chronic respiratory failure. Encourage nonpharmacological interventions. 03/29/2019-chronic pain increased today. Will place patient back on her oxycodone 15 mg every 6 watch her resource status closely. 03/30/2019-chronic, stable. Need follow
[2019-03-31] MEDS: CETIRIZINE 5 MG TABLET PO SCH (22:24)
[2019-03-31] MEDS: RAMIPRIL 2.5 MG CAPSULE PO SCH (22:25)
[2019-03-31] MEDS: LUNESTA 3 MG PO SCH (22:41)
[2019-04-01] MEDS: PRIMIDONE 50 MG TABLET PO SCH ×3 (06:33→22:24)
[2019-04-01] MEDS: PANTOPRAZOLE SODIUM 40 MG TABLET.DR PO SCH ×2 (06:34→18:29)
[2019-04-01] MEDS: LEVOTHYROXINE SODIUM 0.1 MG TABLET PO SCH (06:35)
[2019-04-01 06:44] LABS: ABSOLUTE EOSINOPHILS # (AUTO) 0.3 10^3/uL (0.0-0.6); ABSOLUTE LYMPHOCYTES (AUTO) 1.6 10^3/uL (0.5-4.7); ABSOLUTE MONOCYTES (AUTO) 0.7 10^3/uL (0.1-1.4); ABSOLUTE NEUT (AUTO) 5.2 10^3/uL (1.7-8.2); BASOPHILS % (AUTO) 0.3 % (0-2); EOSINOPHILS % (AUTO) 4.1 % (0-6); HEMOGLOBIN 8.5 g/dL (12.0-15.5); LYMPHOCYTES % (AUTO) 20.7 % (13-45); MEAN CORPUSCULAR HEMOGLOBIN 30.6 pg (27.0-33.4); MEAN CORPUSCULAR HGB CONC 33.9 g/dL (32.0-36.0); MEAN CORPUSCULAR VOLUME 90 fl (80-97); MONOCYTES % (AUTO) 8.9 % (3-13); PLATELET COUNT 240 10^3/uL (150-450); RED BLOOD COUNT 2.77 10^6/uL (3.72-5.28); RED CELL DISTRIBUTION WIDTH 16.4 % (11.5-14.0); TOTAL CELLS COUNTED % (AUTO) 100 %; WHITE BLOOD COUNT 7.9 10^3/uL (4.0-10.5)
[2019-04-01 07:00] LABS: ALBUMIN 2.8 g/dL (3.5-5.0); ALKALINE PHOSPHATASE 63 U/L (38-126); ANION GAP 6 (5-19); ASPARTATE AMINO TRANSFERASE 22 U/L (14-36); BILIRUBIN,DIRECT 0.2 mg/dL (0.0-0.4); BILIRUBIN,TOTAL 0.4 mg/dL (0.2-1.3); BLOOD UREA NITROGEN 22 mg/dL (7-20); CALCIUM 8.3 mg/dL (8.4-10.2); CARBON DIOXIDE 27 mmol/L (22-30); CHLORIDE 104 mmol/L (98-107); GLUCOSE 76 mg/dL (75-110); POTASSIUM 4.1 mmol/L (3.6-5.0); TOTAL PROTEIN 5.6 g/dL (6.3-8.2)
[2019-04-01] MEDS: LEVALBUTEROL HCL NEB 1.25 MG/3 ML AMPUL NEB SCH ×2 (07:47→16:13)
[2019-04-01] MEDS: IPRATROPIUM BROMIDE 0.02% NEB 0.5 MG/2.5 ML AMPUL NEB SCH ×2 (07:47→16:15)
[2019-04-01] MEDS: BUDESONIDE NEB 0.5 MG/2 ML AMPUL NEB SCH (07:47)
[2019-04-01] MEDS: ACETYLCYSTEINE 20% SOLN 800 MG/4 ML VIAL.NEB NEB SCH ×2 (07:48→19:17)
[2019-04-01] MEDS: CIPROFLOXACIN 400 MG/D5W RTU 400 MG/200 ML RTUPB IV SCH (09:27)
[2019-04-01] MEDS: ALPRAZOLAM 0.5 MG TABLET PO SCH ×4 (09:28→22:25)
[2019-04-01] MEDS: OXYCODONE HCL IR 5 MG TABLET PO PRN ×2 (09:29→18:29)
[2019-04-01] MEDS: DULOXETINE HCL 30 MG CAPSULE.DR PO SCH (09:31)
[2019-04-01] MEDS: SUCRALFATE 1 GM TABLET PO SCH ×4 (09:31→22:24)
[2019-04-01] MEDS: PREDNISONE 20 MG TABLET PO SCH (09:31)
[2019-04-01] MEDS: DONEPEZIL HCL 5 MG TABLET PO SCH (09:31)
[2019-04-01] MEDS: FLUOXETINE HCL 20 MG CAPSULE PO SCH (09:31)
[2019-04-01] MEDS: PRENATAL VITAMIN W DHA CAPSULE PO SCH (09:32)
[2019-04-01] MEDS: ATORVASTATIN CALCIUM 20 MG TABLET PO SCH (09:32)
[2019-04-01] MEDS: FLUCONAZOLE 100 MG TABLET PO SCH (09:32)
[2019-04-01] MEDS: POTASSIUM CHLORIDE 10 MEQ CAPSULE.ER PO SCH (09:32)
[2019-04-01] MEDS: DICYCLOMINE HCL 10 MG CAPSULE PO PRN ×2 (09:32→22:24)
[2019-04-01] MEDS: METOLAZONE 5 MG TABLET PO SCH (09:32)
[2019-04-01] MEDS: GUAIFENESIN 600 MG TABLET.SA PO SCH ×2 (09:32→22:29)
[2019-04-01] MEDS: ROPINIROLE HCL 0.25 MG TABLET PO SCH ×2 (09:32→18:29)
[2019-04-01] MEDS: DOCUSATE SODIUM 100 MG CAPSULE PO SCH ×2 (09:33→18:16)
[2019-04-01] MEDS: FLUTICASONE NASAL SPRAY 50 MCG/SPRY 120 SPRAY/16 GM NASL SCH (09:33)
[2019-04-01] MEDS: FLUTICASONE/UMECLIDIN/VILANTER 100-62.5-25 MCG/DOSE IH SCH (09:33)
[2019-04-01] MEDS: FERROUS SULFATE 325 MG TABLET PO SCH (09:33)
[2019-04-01] MEDS: FONDAPARINUX SODIUM INJ 7.5 MG/0.6 ML DISP.SYRIN SUBCUT SCH (09:34)
[2019-04-01 14:46] LABS: C DIFFICILE GDH NEGATIVE (NEGATIVE)
--- NOTE | 2019-04-01 18:18 | PDOC PROGRESS REPORT ---
Subjective Progress Note for:: 04/01/19 Subjective:: The patient is a 63-year-old female with a past medical history significant for CHF, hypertension, hyperlipidemia, asthma, COPD, multiple admissions for pneumonia, hypothyroidism, obesity, CVA with residual left-sided weakness, CKD, arthritis/chronic pain, and depression who was admitted 03/27/2019 for COPD exacerbation after being discharged from our facility 2 days ago following treatment for community-acquired pneumonia. Patient was strongly encouraged to consider inpatient short-term rehabilitation during last admission which patient and declined. She was discharged home with home health services. 03/31/2019. No acute events overnight. 04/01/2019. No acute events overnight. He denies any fever, chills, nausea, vomiting endorses diarrhea. Ready to be discharged home however oxygen supplies are not ready yet. Reason For Visit: ACUTE EXACERBATION OF COPD,ACUTE ON CHRONIC RESPIR Physical Exam Vital Signs: Temp Pulse Resp BP Pulse Ox 98.3 F 112 H 24 H 93/42 L 94 03/31/19 23:53 04/01/19 16:15 04/01/19 16:15 03/31/19 23:53 04/01/19 16:15 Pulse Oximeter Nocturnal Start: 03/31/19 09:42 Freq: RTQ4 Status: Complete Protocol: Document 04/01/19 03:26 DBE (Rec: 04/01/19 03:27 [email or web address] [id number]) Nocturnal Pulse Oximetry Equipment Usage Equipment in Use Nocturnal Spo2 Charge Charge Now Oxygen Delivery Method (includes room Room Air air) O2 Sat by Pulse Oximetry (92-100) 97 Continuous Pulse Oximeter Set Up Yes Continuous SpO2 Discontinued No Continuous SpO2 Machine # [id number] Intake & Output 03/31/19 04/01/19 04/02/19 06:59 06:59 06:59 Intake Total 2726 1287 Output Total 5555 1850 Balance 1626 -563 Weight 119 kg 119.2 kg General appearance: PRESENT: morbidly obese Respiratory exam: PRESENT: clear to auscultation allison. ABSENT: rales, rhonchi, wheezes Cardiovascular exam: PRESENT: RRR. ABSENT: diastolic murmur, rubs, systolic murmur GI/Abdominal exam: PRESENT: normal bowel sounds, soft. ABSENT: distended, guarding, mass, organolmegaly, rebound, tenderness Neurological exam: PRESENT: alert, awake, oriented to person, oriented to place, oriented to time, oriented to situation, CN II-XII grossly intact. ABSENT: motor sensory deficit Results Laboratory Results: 04/01/19 05:39 04/01/19 05:39 04/01/19 04/01/19 04/01/19 05:39 05:39 13:10 WBC 7.9 RBC 2.77 L Hgb 8.5 L Hct 25.0 L MCV 90 MCH 30.6 MCHC 33.9 RDW 16.4 H Plt Count 240 Seg Neutrophils % 66.0 Sodium 137.1 Potassium 4.1 Chloride 104 Carbon Dioxide 27 Anion Gap 6 BUN 22 H Creatinine 0.96 Est GFR ( Amer) > 60 Glucose 76 Calcium 8.3 L Total Bilirubin 0.4 AST 22 Alkaline Phosphatase 63 Total Protein 5.6 L Albumin 2.8 L Stl C.difficile Tox PCR Cancelled 03/27/19 03/27/19 17:10 17:10 Creatine Kinase 317 H CK-MB (CK-2) 10.30 H Troponin I 0.016 Impressions: Chest X-Ray 03/27/19 17:15 IMPRESSION: Persistent right upper lobe opacification, pneumonia versus chronic change. Chest CT 03/28/19 00:00 IMPRESSION: Bilateral reticulonodular infiltrates, most likely due to infectious or inflammatory process. Modified Barium Swallow 03/30/19 00:00 IMPRESSION: SINGLE EPISODE OF LARYNGEAL PENETRATION WITH THIN BARIUM, NO ASPIR ATION IDENTIFIED. PLEASE SEE SPEECH PATHOLOGIST REPORT FOR OTHER FINDINGS AND RECOMMENDATIONS. Assessment and Plan - Diagnosis (1) Acute and chronic respiratory failure with hypoxia Is this a current diagnosis for this admission?: Yes Plan: Likely COPD exacerbation. SPO2 WNL on 2 to 3 L nasal cannula. Will need home O2. P.o. prednisone day 3. IV antibiotics day 4. IV ciprofloxacin day 4. Switch to p.o. antibiotics. Continue Xopenex, Atrovent as needed and scheduled Trelogy (2) Anemia in chronic kidney disease Qualifiers: Chronic kidney disease stage: stage 3 (moderate) Qualified Code(s): N18.3 - Chronic kidney disease, stage 3 (moderate); D63.1 - Anemia in chronic kidney disease Is this a current diagnosis for this admission?: Yes Plan: Overall stable, it appears that the patient's baseline hemoglobin is 9.5. Continue daily multivitamin. Start ferrous sulfate daily with meals. A daily CBC will be obtained to monitor the patient's chronic anemia. (3) COPD (chronic obstructive pulmonary disease) Qualifiers: Chronic bronchitis type: unspecified Is this a current diagnosis for this admission?: Yes Plan: Continue IV Cipro and Steroids. Mucinex twice daily. Incentive spirometer and flutter valve to bedside. Ambulate the halls, out of bed for meals. (4) Dysphasia Is this a current diagnosis for this admission?: Yes Plan: Status post modified barium swallow evaluation. Speech therapy following. Recommendations noted. (5) Hypertension Qualifiers: Hypertension type: essential hypertension Qualified Code(s): I10 - Essential (primary) hypertension Is this a current diagnosis for this admission?: Yes Plan: Normotensive at present. Continue home medication regiment of Ramipril and torsemide IV hydralazine as needed for blood pressure control. Cardiac diet. (6) Hypothyroidism (acquired) Is this a current diagnosis for this admission?: Yes Plan: Continue home dose levothyroxine. (7) Obesity Qualifiers: Obesity type: due to excess calories Serious obesity comorbidity presence: unspecified whether serious comorbidity present Body mass index: BMI 40.0-44.9 Is this a current diagnosis for this admission?: Yes Plan: Dietary discretion and lifestyle modification are encouraged. Patient is placed on a consistent carb, cardiac, prerenal diet. (8) Opiate dependence, continuous Is this a current diagnosis for this admission?: Yes Plan: Chronic back pain. Reduce oxycodone schedule due to chronic respiratory failure. Encourage nonpharmacological interventions.
[2019-04-01] MEDS: LEVALBUTEROL HCL NEB 0.63 MG/3 ML AMPUL NEB PRN (19:17)
[2019-04-01] MEDS: CETIRIZINE 5 MG TABLET PO SCH (22:25)
[2019-04-01] MEDS: RAMIPRIL 2.5 MG CAPSULE PO SCH (22:26)
[2019-04-01] MEDS: LUNESTA 3 MG PO SCH (22:27)
[2019-04-02] MEDS: OXYCODONE HCL IR 5 MG TABLET PO PRN ×2 (04:27→10:28)
[2019-04-02] MEDS: LEVOTHYROXINE SODIUM 0.1 MG TABLET PO SCH (06:24)
[2019-04-02] MEDS: PANTOPRAZOLE SODIUM 40 MG TABLET.DR PO SCH ×2 (06:24→16:50)
[2019-04-02] MEDS: PRIMIDONE 50 MG TABLET PO SCH ×2 (06:24→14:07)
[2019-04-02 06:34] LABS: ABSOLUTE EOSINOPHILS # (AUTO) 0.3 10^3/uL (0.0-0.6); ABSOLUTE MONOCYTES (AUTO) 0.7 10^3/uL (0.1-1.4); ABSOLUTE NEUT (AUTO) 4.5 10^3/uL (1.7-8.2); BASOPHILS % (AUTO) 0.4 % (0-2); EOSINOPHILS % (AUTO) 3.9 % (0-6); HEMATOCRIT 25.1 % (36.0-47.0); HEMOGLOBIN 8.4 g/dL (12.0-15.5); LYMPHOCYTES % (AUTO) 26.3 % (13-45); MEAN CORPUSCULAR HGB CONC 33.5 g/dL (32.0-36.0); MEAN CORPUSCULAR VOLUME 89 fl (80-97); PLATELET COUNT 240 10^3/uL (150-450); RED CELL DISTRIBUTION WIDTH 16.5 % (11.5-14.0); SEGMENTED NEUTROPHILS % (AUTO) 60.4 % (42-78); TOTAL CELLS COUNTED % (AUTO) 100 %; WHITE BLOOD COUNT 7.5 10^3/uL (4.0-10.5)
[2019-04-02 07:06] LABS: ALBUMIN 2.8 g/dL (3.5-5.0); ALKALINE PHOSPHATASE 62 U/L (38-126); ANION GAP 5 (5-19); ASPARTATE AMINO TRANSFERASE 20 U/L (14-36); BILIRUBIN,DIRECT 0.1 mg/dL (0.0-0.4); BILIRUBIN,TOTAL 0.3 mg/dL (0.2-1.3); BLOOD UREA NITROGEN 17 mg/dL (7-20); CALCIUM 8.5 mg/dL (8.4-10.2); CARBON DIOXIDE 27 mmol/L (22-30); CHLORIDE 105 mmol/L (98-107); GLUCOSE 82 mg/dL (75-110); POTASSIUM 4.2 mmol/L (3.6-5.0); TOTAL PROTEIN 5.6 g/dL (6.3-8.2)
[2019-04-02] MEDS: LEVALBUTEROL HCL NEB 0.63 MG/3 ML AMPUL NEB PRN (07:51)
[2019-04-02] MEDS: ACETYLCYSTEINE 20% SOLN 800 MG/4 ML VIAL.NEB NEB SCH (07:51)
[2019-04-02] MEDS ORDERED: LEVOFLOXACIN 500 MG TABLET PO SCH (10:00)
[2019-04-02] MEDS: SUCRALFATE 1 GM TABLET PO SCH ×3 (10:02→16:50)
[2019-04-02] MEDS: FLUTICASONE/UMECLIDIN/VILANTER 100-62.5-25 MCG/DOSE IH SCH (10:20)
[2019-04-02] MEDS: FLUTICASONE NASAL SPRAY 50 MCG/SPRY 120 SPRAY/16 GM NASL SCH (10:20)
[2019-04-02] MEDS: FLUOXETINE HCL 20 MG CAPSULE PO SCH (10:21)
[2019-04-02] MEDS: ATORVASTATIN CALCIUM 20 MG TABLET PO SCH (10:21)
[2019-04-02] MEDS: POTASSIUM CHLORIDE 10 MEQ CAPSULE.ER PO SCH (10:21)
[2019-04-02] MEDS: PRENATAL VITAMIN W DHA CAPSULE PO SCH (10:21)
[2019-04-02] MEDS: DONEPEZIL HCL 5 MG TABLET PO SCH (10:22)
[2019-04-02] MEDS: GUAIFENESIN 600 MG TABLET.SA PO SCH (10:22)
[2019-04-02] MEDS: FONDAPARINUX SODIUM INJ 7.5 MG/0.6 ML DISP.SYRIN SUBCUT SCH (10:22)
[2019-04-02] MEDS: ALPRAZOLAM 0.5 MG TABLET PO SCH ×3 (10:22→16:50)
[2019-04-02] MEDS: ROPINIROLE HCL 0.25 MG TABLET PO SCH ×2 (10:22→16:50)
[2019-04-02] MEDS: PREDNISONE 20 MG TABLET PO SCH (10:22)
[2019-04-02] MEDS: METOLAZONE 5 MG TABLET PO SCH (10:22)
[2019-04-02] MEDS: DULOXETINE HCL 30 MG CAPSULE.DR PO SCH (10:22)
[2019-04-02] MEDS: DOCUSATE SODIUM 100 MG CAPSULE PO SCH ×2 (10:26→17:36)
[2019-04-02] MEDS: DICYCLOMINE HCL 10 MG CAPSULE PO PRN ×2 (10:28→14:08)
[2019-04-02] MEDS: FERROUS SULFATE 325 MG TABLET PO SCH (10:29)
[2019-04-02 17:34] VITALS: BP 137/75
--- NOTE | 2019-04-05 14:31 | PDOC DISCHARGE SUMMARY ---
General - Admit/Disc Date/PCP Admission Date/Primary Care Provider: 03/27/19 22:28 MARK HAILE MD Discharge Date: 04/02/19 - Discharge Diagnosis (1) Acute and chronic respiratory failure with hypoxia Is this a current diagnosis for this admission?: Yes (2) Anemia in chronic kidney disease Is this a current diagnosis for this admission?: Yes (3) COPD (chronic obstructive pulmonary disease) Is this a current diagnosis for this admission?: Yes (4) Dysphasia Is this a current diagnosis for this admission?: Yes (5) Hypertension Is this a current diagnosis for this admission?: Yes (6) Hypothyroidism (acquired) Is this a current diagnosis for this admission?: Yes (7) Obesity Is this a current diagnosis for this admission?: Yes (8) Opiate dependence, continuous Is this a current diagnosis for this admission?: Yes - Additional Information Resuscitation Status: Full Code Discharge Diet: As Tolerated Discharge Activity: Activity As Tolerated, Balance Activity w/Rest Home Medications: Albuterol Sulfate [Proair HFA Inhalation Aerosol 8.5 gm MDI] 1 puff IH Q6HP PRN 03/28/19 Albuterol Sulfate [Ventolin 0.083% Neb 2.5 mg/3 mL Ampul] 1 vial NEB RTQ4HP PRN 03/28/19 Alprazolam [Xanax 0.5 mg Tablet] 0.5 mg PO QID 03/28/19 Atorvastatin Calcium [Lipitor 20 mg Tablet] 20 mg PO DAILY 03/28/19 Azelastine HCl 1 spray NS BID 03/28/19 Cyclobenzaprine HCl [Flexeril 10 mg Tablet] 10 mg PO BIDP PRN 03/28/19 Dicyclomine HCl [Bentyl 10 mg Capsule] 10 mg PO TIDP PRN 03/28/19 Diphenoxylate HCl/Atropine [Lomotil 2.5-0.025 mg Tablet] 1 each PO DAILYP PRN 03/28/19 Donepezil HCl [Aricept] 10 mg PO DAILY 03/28/19 Duloxetine HCl [Cymbalta] 60 mg PO DAILY 03/28/19 Ergocalciferol (Vitamin D2) [Drisdol 50,000 unit (1.25MG) Capsule] 50,000 unit PO [id number] 03/28/19 Eszopiclone [Lunesta] 3 mg PO QHS 03/28/19 Fluoxetine HCl [Prozac] 80 mg PO DAILY 03/28/19 Fluticasone Propionate [Flonase Nasal Mullan 50 Mcg/Mullan 16 gm] 1 spray NASL DAILY 03/28/19 Fluticasone/Umeclidin/Vilanter [Trelegy 100-62.5-25 Mcg Ellipta 14 Dose/Dpi] 1 puff IH DAILY 03/28/19 Fondaparinux Sodium [Arixtra Inj 7.5 mg/0.6 ml Disp. Syrin] 7.5 mg SUBCUT DAILY 03/28/19 Levocetirizine Dihydrochloride [Xyzal] 5 mg PO QHS 03/28/19 Levothyroxine Sodium 200 mcg PO Q6AM 03/28/19 Magnesium Oxide [Mag-Ox 400 mg Tablet] 400 mg PO DAILY 03/28/19 Menthol/Zinc Oxide [Calmoseptine Ointment] 1 applic TP TIDP PRN 03/28/19 Metolazone [Zaroxolyn 5 mg Tablet] 5 mg PO DAILY 03/28/19 Nystatin [Mycostatin Topical Powder 15 gm] 1 applic TP BIDP PRN 03/28/19 Omeprazole 20 mg PO Q6AM 03/28/19 Oxycodone HCl [Oxy-Ir 5 mg Tablet] 15 mg PO Q6HP PRN 03/28/19 Pnv,Calcium 72/Iron/Folic Acid [ Vitamin Plus Low Iron] 1 each PO DAILY 03/28/19 Potassium Chloride [Klor-Con 10 Meq Capsule ER] 20 meq PO DAILY 03/28/19 Primidone [Mysoline 50 mg Tablet] 50 mg PO Q8 03/28/19 Promethazine HCl [Phenergan 25 mg Tablet] 25 mg PO Q8HP PRN 03/28/19 Ramipril [Altace 2.5 mg Capsule] 2.5 mg PO QHS 03/28/19 Ropinirole HCl [Requip 0.25 mg Tablet] 0.25 mg PO BID 03/28/19 Torsemide [Demadex 20 mg Tablet] 40 mg PO DAILY 03/28/19 History of Present Illness History of Present Illness: The patient is a 63-year-old female with a past medical history significant for CHF, hypertension, hyperlipidemia, asthma, COPD, multiple admissions for pneumonia, hypothyroidism, obesity, CVA with residual left-sided weakness, CKD, arthritis/chronic pain, and depression who was admitted 03/27/2019 for COPD exacerbation after being discharged from our facility 2 days ago following treatment for community-acquired pneumonia. Patient was strongly encouraged to consider inpatient short-term rehabilitation during last admission which patient and declined. She was discharged home with home health services. Hospital Course Hospital Course: (1) Acute and chronic respiratory failure with hypoxia Difficult overload. Lungs clear bilaterally. No wheezing. SPO2 WNL on 2 L. Received 5 days of p.o. steroids. Received 6 days of IV antibiotics. Received 1 day of p.o. antibiotics. Was continued on continue Xopenex, Atrovent as needed and scheduled Trelogy Discharged on home O2 2L/min, as to continue Xopenex, Atrovent and Trelogy. (2) Anemia in chronic kidney disease Hemoglobin remains stable. No sign of bleeding. H&H was monitored daily. Continued to on daily multivitamin and ferrous sulfate. (3) COPD (chronic obstructive pulmonary disease) As per problem #1. (4) Dysphasia Resolved. Patient tolerating p.o. intake. Speech therapy was consulted. Modified barium swallow was done. Please refer to report. Recommendations noted. (5) Hypertension Normotensive. Was restarted on home meds. Adjust meds as needed. Start on IV hydralazine as needed., Scar started on cardiac diet. Outpatient PCP follow- up. (6) Hypothyroidism (acquired) Restarted on home meds. (7) Obesity Dietary discretion and lifestyle modification are encouraged. (8) Opiate dependence, continuous Chronic back pain. Restarted on home meds. Encouraged nonpharmacological interventions. Outpatient pain management follow-up. Physical Exam Vital Signs: Temp Pulse Resp BP Pulse Ox 98.3 F 101 H 16 137/75 H 99 04/02/19 17:36 04/02/19 17:36 04/02/19 17:36 04/02/19 17:36 04/02/19 17:36 Pulse Oximeter Nocturnal Start: 03/31/19 09:42 Freq: RTQ4 Status: Complete Protocol: Document 04/01/19 03:26 DBE (Rec: 04/01/19 03:27 DBE [id number]) Nocturnal Pulse Oximetry Equipment Usage Equipment in Use Nocturnal Spo2 Charge Charge Now Oxygen Delivery Method (includes room Room Air air) O2 Sat by Pulse Oximetry (92-100) 97 Continuous Pulse Oximeter Set Up Yes Continuous SpO2 Discontinued No Continuous SpO2 Machine # [id number] General appearance: PRESENT: morbidly obese Respiratory exam: PRESENT: clear to auscultation allison. ABSENT: rales, rhonchi, wheezes Cardiovascular exam: PRESENT: RRR. ABSENT: diastolic murmur, rubs, systolic murmur GI/Abdominal exam: PRESENT: normal bowel sounds, soft. ABSENT: distended, guarding, mass, organolmegaly, rebound, tenderness Neurological exam: PRESENT: alert, awake, oriented to person, oriented to place, oriented to time, oriented to situation, CN II-XII grossly intact Results Laboratory Results: 04/02/19 05:48 04/02/19 05:48 03/27/19 03/27/19 17:10 17:10 Creatine Kinase 317 H CK-MB (CK-2) 10.30 H Troponin I 0.016 Impressions: Chest X-Ray 03/27/19 17:15 IMPRESSION: Persistent right upper lobe opacification, pneumonia versus chronic change. Chest CT 03/28/19 00:00 IMPRESSION: Bilateral reticulonodular infiltrates, most likely due to infec tious or inflammatory process. Modified Barium Swallow 03/30/19 00:00 IMPRESSION: SINGLE EPISODE OF LARYNGEAL PENETRATION WITH THIN BARIUM, NO ASPIRATION IDENTIFIED. PLEASE SEE SPEECH PATHOLOGIST REPORT FOR OTHER FINDINGS AND RECOMMENDATIONS. Qualifiers - * PATIENT BEING DISCHARGED WITH ANY OF THE FOLLOWING DIAGNOSIS: No VTE patient discharged on overlapping Therapy?: Yes Acute Heart Failure - Is this a Heart Failure Patient?: No
== END 2019-04-02 18:11 | disposition home health service (06) | DRG 190 ==
LOC: ER 17:10 → EH 22:28 → 5 23:56
PROVIDERS: ADMIT Emergency Medicine; ATTEND Emergency Medicine
PROC: 5A09557 Assistance with Respiratory Ventilation, Greater than 96 Consecutive Hours, Continuous Positive Airway Pressure (ICD-10-PCS; principal; 2019-03-27)
DX: J44.1 Chronic obstructive pulmonary disease with (acute) exacerbation (principal); J96.21 Acute and chronic respiratory failure with hypoxia; N17.9 Acute kidney failure, unspecified; N39.0 Urinary tract infection, site not specified; F11.20 Opioid dependence, uncomplicated; I69.354 Hemiplegia and hemiparesis following cerebral infarction affecting left non-dominant side; Z68.41 Body mass index [BMI] 40.0-44.9, adult; D63.1 Anemia in chronic kidney disease; E03.9 Hypothyroidism, unspecified; R47.02 Dysphasia; E78.5 Hyperlipidemia, unspecified; F32.9 Major depressive disorder, single episode, unspecified; G89.4 Chronic pain syndrome; N18.3 Chronic kidney disease, stage 3 (moderate); E66.01 Morbid (severe) obesity due to excess calories; I12.9 Hypertensive chronic kidney disease with stage 1 through stage 4 chronic kidney disease, or unspecified chronic kidney disease; E83.51 Hypocalcemia; E86.0 Dehydration; E78.00 Pure hypercholesterolemia, unspecified; Z79.899 Other long term (current) drug therapy; Z87.891 Personal history of nicotine dependence; Z88.6 Allergy status to analgesic agent; Z88.1 Allergy status to other antibiotic agents; Z88.8 Allergy status to other drugs, medicaments and biological substances
CPT/HCPCS: 36415; 36600; 71045; 71250; 74230; 80048; 80053; 81001; 82272; 82550; 82553; 82803; 82962; 83605; 83735; 84484; 85025; 85027; 87040; 87086; 87324; 87449; 93005; 93010; 94640; 94660; 94667; 94668; 94761; 94762; 94799; 96361; 96374; 99285; J0610; J0744; J1652; J2185; J2920; J2930; J3490; J7030; J7060; J7512; J7614; S0119

== ENCOUNTER 2019-04-09 13:58 | Inpatient (IN) | payer MEDICARE, OTHER ==
--- NOTE | 2019-04-09 15:27 | RADIOLOGY REPORT (SQ) ---
EXAM DESCRIPTION: CHEST SINGLE VIEW COMPLETED DATE/TIME: 04/09/2019 2:51 pm REASON FOR STUDY: SOB COMPARISON: 03/27/2019 EXAM PARAMETERS: NUMBER OF VIEWS: One view. TECHNIQUE: Single frontal radiographic view of the chest acquired. RADIATION DOSE: NA LIMITATIONS: None. FINDINGS: LUNGS AND PLEURA: Persistent limited right upper lobe opacification. Ill-defined left low er lobe opacification. MEDIASTINUM AND HILAR STRUCTURES: No masses. Contour normal. HEART AND VASCULAR STRUCTURES: Heart normal in size. Normal vasculature. BONES: No acute findings. HARDWARE: None in the chest. OTHER: No other significant finding. IMPRESSION: Cannot exclude right upper lobe or left lower lobe pneumonia. TECHNICAL DOCUMENTATION: JOB ID: [id number] [employer]- All Rights Reserved Reading location - IP/workstation name: [email or web address]
[2019-04-09 15:31] LABS: ABSOLUTE EOSINOPHILS # (AUTO) 0.4 10^3/uL (0.0-0.6); ABSOLUTE MONOCYTES (AUTO) 0.8 10^3/uL (0.1-1.4); ABSOLUTE NEUT (AUTO) 9.6 10^3/uL (1.7-8.2); BASOPHILS % (AUTO) 0.4 % (0-2); HEMOGLOBIN 9.3 g/dL (12.0-15.5); LYMPHOCYTES % (AUTO) 8.8 % (13-45); MEAN CORPUSCULAR HEMOGLOBIN 29.9 pg (27.0-33.4); MEAN CORPUSCULAR HGB CONC 33.1 g/dL (32.0-36.0); MEAN CORPUSCULAR VOLUME 90 fl (80-97); MONOCYTES % (AUTO) 7.1 % (3-13); PLATELET COUNT 237 10^3/uL (150-450); RED CELL DISTRIBUTION WIDTH 16.1 % (11.5-14.0); SEGMENTED NEUTROPHILS % (AUTO) 80.7 % (42-78); TOTAL CELLS COUNTED % (AUTO) 100 %; WHITE BLOOD COUNT 11.8 10^3/uL (4.0-10.5)
[2019-04-09 15:53] LABS: ALBUMIN 3.4 g/dL (3.5-5.0); ALKALINE PHOSPHATASE 85 U/L (38-126); ANION GAP 8 (5-19); ASPARTATE AMINO TRANSFERASE 22 U/L (14-36); BILIRUBIN,DIRECT 0.2 mg/dL (0.0-0.4); BILIRUBIN,TOTAL 0.3 mg/dL (0.2-1.3); BLOOD UREA NITROGEN 26 mg/dL (7-20); CALCIUM 8.6 mg/dL (8.4-10.2); CARBON DIOXIDE 31 mmol/L (22-30); CHLORIDE 100 mmol/L (98-107); GLUCOSE 120 mg/dL (75-110); POTASSIUM 3.6 mmol/L (3.6-5.0); TOTAL PROTEIN 6.4 g/dL (6.3-8.2)
--- NOTE | 2019-04-09 16:10 | ER Document Report ---
ED Respiratory Problem - General Chief Complaint: Shortness Of Breath Stated Complaint: SHORTNESS OF BREATH Time Seen by Provider: 04/09/19 16:04 Primary Care Provider: MARK HAILE MD [Primary Care Provider] - Follow up as needed Mode of Arrival: Medic Information source: Patient TRAVEL OUTSIDE OF THE [place] IN LAST 30 DAYS: No - HPI Patient complains to provider of: Short of breath - pt d/c'd from [facility] 4 days ago with acute on chronic resp. failure with c/o increasing SOB and dyspnea starting last night. - Related Data Allergies/Adverse Reactions: pregabalin [From Lyrica] Allergy (Unknown, Verified 03/08/19 22:52) trazodone HCl [From Desyrel] Allergy (Unknown, Verified 03/08/19 22:52) cephalexin monohydrate [From Keflex] Adverse Reaction (Verified 03/08/19 22:52) nausea, vomiting erythromycin base [Erythromycin Base] Adverse Reaction (Verified 03/08/19 22:52) nausea, vomiting gabapentin Adverse Reaction (Verified 03/08/19 22:52) Nausea guaifenesin [From Entex T] Adverse Reaction (Verified 03/08/19 22:52) Nausea pseudoephedrine [From Entex T] Adverse Reaction (Verified 03/08/19 22:52) Nausea Past Medical History - General Information source: Patient, Relative - Social History Smoking Status: Unknown if Ever Smoked Family History: CAD, Hypertension. denies: DM, Malignancy Patient has suicidal ideation: No Patient has homicidal ideation: No - Past Medical History Cardiac Medical History: Reports: Hx Congestive Heart Failure, Hx Hypercholest erolemia, Hx Hypertension Denies: Hx Atrial Fibrillation, Hx Coronary Artery Disease - HIGH CHOLEST FLOR, Hx DVT, Hx Heart Attack, Hx Pulmonary Embolism Pulmonary Medical History: Reports: Hx Asthma, Hx Bronchitis, Hx COPD, Hx Pneumonia - Several admissions within the last 12 months, Hx Respiratory Failure Denies: Hx Tuberculosis Neurological Medical History: Reports: Hx Cerebrovascular Accident - 7 YEARS AGO HAS "MEMORY ISSUES" "STROKE X4, last one 2005. Denies: Hx Seizures Endocrine Medical History: Reports: Hx Hypothyroidism. Denies: Hx Diabetes Mellitus Type 1, Hx Diabetes Mellitus Type 2, Hx Hyperthyroidism Renal/ Medical History: Reports: Hx Renal Insufficiency. Denies: Hx End Stage Renal Disease, Hx Peritoneal Dialysis GI Medical History: Denies: Hx Cirrhosis, Hx Crohn's Disease, Hx Hepatitis, Hx Ulcerative Colitis Musculoskeletal Medical History: Reports Hx Arthritis, Denies Hx Fibromyalgia, Denies Hx Gout Skin Medical History: Denies Hx Eczema, Denies Hx Psoriasis Psychiatric Medical History: Reports: Hx Depression Infectious Medical History: Denies: Hx Hepatitis, Hx HIV Past Surgical History: Reports: Hx Dilation and Curettage, Hx Hysterectomy, Hx Orthopedic Surgery - Wrist fracture repair, Hx Tubal Ligation - Immunizations Hx Diphtheria, Pertussis, Tetanus Vaccination: Yes Hx Pneumococcal Vaccination: 07/22/18 Review of Systems - Review of Systems Constitutional: No symptoms reported EENT: No symptoms reported Cardiovascular: No symptoms reported Respiratory: See HPI, Short of breath, Wheezing Gastrointestinal: No symptoms reported Musculoskeletal: No symptoms reported Neurological/Psychological: No symptoms reported -: Yes All other systems reviewed and negative Physical Exam - Vital signs Vitals: Temp 98.2 F 04/09/19 14:32 - General General appearance: Alert In distress: Mild - HEENT Head: Normocephalic Pupils: PERRL Pharynx: Normal Neck: Normal - Respiratory Respiratory status: No respiratory distress Chest status: Nontender Breath sounds: Wheezing - end-expiratory wheezes bilaterally with scattered rhonchi bilaterally - Cardiovascular Rhythm: Regular Heart sounds: Normal auscultation Murmur: No - Abdominal Inspection: Normal Bowel sounds: Normal Tenderness: Nontender - Neurological Neuro grossly intact: Yes Cognition: Normal Orientation: AAOx4 Course - Re-evaluation Re-evalutation: 04/09/19 16:40 pt feeling better after nebs and IV meds -- will call Dr. Ashraf for admission - Vital Signs Vital signs: Temp Pulse Resp BP Pulse Ox 98.2 F 04/09/19 14:32 - Laboratory Result Diagrams: 04/09/19 15:16 04/09/19 15:16 Laboratory results interpreted by me: 04/09/19 04/09/19 15:16 15:16 WBC 11.8 H RBC 3.10 L Hgb 9.3 L Hct 28.0 L RDW 16.1 H Lymph % (Auto) 8.8 L Absolute Neuts (auto) 9.6 H Seg Neutrophils % 80.7 H Carbon Dioxide 31 H BUN 26 H Creatinine 1.87 H Est GFR ( Amer) 33 L Est GFR (MDRD) Non-Af 27 L Glucose 120 H Albumin 3.4 L - Diagnostic Test Radiology reviewed: Reports reviewed - RUL and LLL infiltrates - EKG Interpretation by Me EKG shows normal: Sinus rhythm Rate: Normal Rhythm: NSR - borderline sinus tach without acute change - Consults santos ashraf Time consulted: 17:27 Consulted provider: will come to ER Critical Care Note - Critical Care Note Total time excluding time spent on procedures (mins): 30 Discharge - Discharge Clinical Impression: Pneumonia Qualifiers: Pneumonia type: due to unspecified organism Laterality: bilateral Lung lo cation: lower lobe of lung Qualified Code(s): J18.1 - Lobar pneumonia, unspecified organism Condition: Fair Disposition: ADMITTED OBSERVATION Admitting Provider: Crystal Unit Admitted: Medical Floor Referrals: MARK HAILE MD [Primary Care Provider] - Follow up as needed
[2019-04-09] MEDS ORDERED: NORMAL SALINE 1000 ML 1,000 ML IV ONE (16:11)
[2019-04-09] MEDS ORDERED: LEVOFLOXACIN 750 MG/D5W RTU 750 MG/150 ML RTUPB IV ONE (16:24)
[2019-04-09] MEDS ORDERED: METHYLPREDNISOLONE INJ 125 MG/2 ML SDV IV ONE (16:38)
[2019-04-09] MEDS ORDERED: IPRATROPIUM/ALBUTEROL 0.5-2.5 MG/3 ML AMPUL NEB ONE (16:38)
--- NOTE | 2019-04-09 18:28 | EKG REPORT ---
SEVERITY:- ABNORMAL ECG - SINUS TACHYCARDIA PROBABLE INFERIOR INFARCT, AGE INDETERMINATE : Confirmed by: Earle Feldman MD 09-Apr-2019 18:28:01
[2019-04-09] MEDS ORDERED: ALBUTEROL SULFATE HFA (90 MCG/PUFF) 200 PUFF/8.5 GM MDI IH PRN (20:40)
[2019-04-09] MEDS ORDERED: ALBUTEROL SULFATE 0.083% NEB 2.5 MG/3 ML AMPUL NEB PRN (20:40)
[2019-04-09] MEDS ORDERED: NYSTATIN TOPICAL POWDER 15 GM TP PRN (20:40)
[2019-04-09] MEDS ORDERED: BUTORPHANOL TARTRATE NS PRN (20:40)
[2019-04-09] MEDS ORDERED: (PENDING PHARMACY ID) (Donepezil Hcl [Aricept] 10 MG) PO SCH (20:45)
[2019-04-09] MEDS ORDERED: FOLIC ACID PO SCH (20:45)
[2019-04-09] MEDS ORDERED: IRON PO SCH (20:45)
[2019-04-09] MEDS ORDERED: [UNRECOGNIZED DRUG - OTHER] PO SCH (20:45)
[2019-04-09] MEDS ORDERED: PNV CALCIUM PO SCH (20:45)
[2019-04-09] MEDS ORDERED: AZELASTINE 0.1% NASL SCH (20:45)
--- NOTE | 2019-04-09 22:13 | PDOC H&P ---
History of Present Illness Admission Date/PCP: 04/09/19 17:32 MARK HAILE MD History of Present Illness: LEATHA ATKINS is a 63 year old female, Patient is new to our practice, she came to establish with us about 2 days ago, she has multiple comorbid conditions including chronic respiratory failure with hypoxemia on home oxygen, chronic obstructive pulmonary disease, history of multiple stroke, hypertension, morbid obesity, opioid dependency, sedentary, multiple hospitalization. She was just recently discharged from this hospital by the hospitalist on 03/27/2019. She was Dr. Pan patient, he does not admit in the hospital, she the patient usually get admitted by the hospitalist. I reviewed the records she has had multiple hospitalization by this team. She was brought to the emergency room by her for evaluation of shortness of breath, fluid retention. In the emergenc y room she was evaluated she was found to have pneumonia.She is also polypharmacy, on so many medicationsShe had CT chest without contrast on 03/28/2019, it demonstrated reticulonodular infiltrate in the upper lobes right more than left in the left lower lobe. There is a background of chronic inters titial changes. No fibrosis.Patient with increased work of breathing I thought she could benefit from Trilogy, a noninvasive positive pressure ventilation device.I will consult with pulmonary regarding the need for trilogy.This patient condition is going to be a challenge to manage, on review of her medical records she has had multiple hospital admission with physical therapy and rehabilitation in the nursing of facilities Past Medical History Cardiac Medical History: Reports: Congestive Heart Failure, Hyperlipidema, Hypertension Pulmonary Medical History: Reports: Asthma, Bronchitis, Chronic Obstructive Pulmonary Disease (COPD), Pneumonia - Several admissions within the last 12 months, Respiratory Failure Endocrine Medical History: Reports: Hypothyroidism Musculoskeltal Medical History: Reports: Arthritis Psychiatric Medical History: Reports: Depression Hematology: Reports: Anemia Infectious Medical History: Denies: HIV Past Surgical History Past Surgical History: Reports: Hysterectomy, Orthopedic Surgery - Wrist fracture repair, Tubal Ligation Social History Smoking Status: Former Smoker Frequency of Alcohol Use: None Hx Recreational Drug Use: No Drugs: None Hx Prescription Drug Abuse: No Family History Family History: CAD, Hypertension. denies: DM, Malignancy Parental Family History Reviewed: Yes Children Family History Reviewed: Yes Sibling(s) Family History Reviewed.: Yes Medication/Allergy Home Medications: Albuterol Sulfate [Proair Hfa Inhalation Aerosol 8.5 gm Mdi] 1 puff IH QIDP PRN 04/09/19 Albuterol Sulfate [Ventolin 0.083% Neb 2.5 mg/3 ml Ampul] 1 vial NEB RTQ6HP PRN 04/09/19 Alprazolam [Xanax 0.5 mg Tablet] 0.5 mg PO QID 04/09/19 Atorvastatin Calcium [Lipitor 20 mg Tablet] 20 mg PO DAILY 04/09/19 Azelastine 0.1 % Nasal Mcdade 1 spray NASL BID 04/09/19 Cyclobenzaprine HCl [Flexeril 10 mg Tablet] 10 mg PO TIDP PRN 04/09/19 Dicyclomine HCl [Bentyl 10 mg Capsule] 10 mg PO QIDP PRN 04/09/19 Diphenoxylate HCl/Atropine [Lomotil Tablet] 1 each PO DAILYP PRN 04/09/19 Donepezil HCl [Aricept] 10 mg PO DAILY 04/09/19 Duloxetine HCl [Cymbalta 30 mg Capsule.dr] 60 mg PO DAILY 04/09/19 Ergocalciferol (Vitamin D2) [Drisdol 50,000 Unit (1.25MG) Capsule] 50,000 unit PO [id number] 04/09/19 Eszopiclone [Lunesta] 3 mg PO QHS 04/09/19 Fluoxetine HCl [Prozac 20 mg Capsule] 80 mg PO DAILY 04/09/19 Fluticasone Propionate [Flonase Nasal Mcdade 50 Mcg/Mcdade 16 gm] 1 spray NASL DAILY 04/09/19 Fluticasone/Umeclidin/Vilanter [Trelegy 100-62.5-25 Mcg Ellipta 14 Dose/Dpi] 1 each IH DAILY 04/09/19 Fondaparinux Sodium [Arixtra Inj 7.5 mg/0.6 ml Disp. Syrin] 7.5 mg SUBCUT DAILY 04/09/19 Levocetirizine Dihydrochloride [Xyzal] 5 mg PO QHS 04/09/19 Levothyroxine Sodium [Synthroid] 250 mcg PO Q6AM 04/09/19 Magnesium Oxide [Mag-Ox 400 mg Tablet] 400 mg PO DAILY 04/09/19 Menthol/Zinc Oxide [Calmoseptine Ointment] 1 applic TP TIDP PRN 04/09/19 Metolazone [Zaroxolyn 5 Mg Tablet] 5 mg PO DAILY 04/09/19 Oxycodone HCl [Oxy-Ir 5 mg Tablet] 15 mg PO Q6HP PRN 04/09/19 Pnv,Calcium 72/Iron/Folic Acid [ Vitamin with Low Iron] 1 each PO DAILY 04/09/19 Potassium Chloride [Klor-Con 10 Meq Capsule ER] 20 meq PO DAILY 04/09/19 Primidone [Mysoline] 50 mg PO Q8 04/09/19 Promethazine HCl [Phenergan 25 mg Tablet] 25 mg PO Q8HP PRN 04/09/19 RX: Butorphanol Tartrate 1 spray NS DAILYP PRN 04/09/19 RX: Nystatin [Nystop] 1 applic TP BIDP PRN 04/09/19 RX: Omeprazole 20 mg PO Q6AM 04/09/19 Ramipril [Altace 2.5 mg Capsule] 2.5 mg PO QHS 04/09/19 Ropinirole HCl [Requip 0.25 Mg Tablet] 0.25 mg PO BID 04/09/19 Torsemide [Demadex 20 mg Tablet] 40 mg PO DAILY 04/09/19 Allergies/Adverse Reactions: pregabalin [From Lyrica] Allergy (Unknown, Verified 03/08/19 22:52) trazodone HCl [From Desyrel] Allergy (Unknown, Verified 03/08/19 22:52) cephalexin monohydrate [From Keflex] Adverse Reaction (Verified 03/08/19 22:52) nausea, vomiting erythromycin base [Erythromycin Base] Adverse Reaction (Verified 03/08/19 22:52) nausea, vomiting gabapentin Adverse Reaction (Verified 03/08/19 22:52) Nausea guaifenesin [From Entex T] Adverse Reaction (Verified 03/08/19 22:52) Nausea pseudoephedrine [From Entex T] Adverse Reaction (Verified 03/08/19 22:52) Nausea Review of Systems Constitutional: PRESENT: fatigue Eyes: ABSENT: visual disturbances Ears: ABSENT: hearing changes Cardiovascular: PRESENT: dyspnea on exertion, edema Respiratory: PRESENT: cough, dyspnea, sputum Gastrointestinal: PRESENT: nausea. ABSENT: abdominal pain, constipation, diarrhea, hematemesis, hematochezia, vomiting Genitourinary: PRESENT: other - oliguria. ABSENT: dysuria, hematuria Musculoskeletal: ABSENT: joint swelling Integumentary: ABSENT: rash, wounds Neurological: PRESENT: frequent falls, lack of coordination, weakness. ABSENT: abnormal gait, abnormal speech, confusion, dizziness, focal weakness, syncope Psychiatric: PRESENT: anxiety, depression. ABSENT: homidical ideation, suicidal ideation Endocrine: ABSENT: cold intolerance, heat intolerance, menstrual abnormalities, polydipsia, polyuria Hematologic/Lymphatic: ABSENT: easy bleeding, easy bruising, lymphadenopathy Physical Exam Vital Signs: Temp Pulse Resp BP Pulse Ox 98.2 F 16 116/62 95 04/09/19 14:32 04/09/19 18:05 04/09/19 17:01 04/09/19 18:05 Intake & Output 04/08/19 04/09/19 04/10/19 06:59 06:59 06:59 Intake Total 1150 Balance 1150 Weight 115.1 kg General appearance: PRESENT: mild distress Head exam: PRESENT: atraumatic, normocephalic Eye exam: PRESENT: PERRLA Ear exam: PRESENT: normal external ear exam Neck exam: PRESENT: full ROM Respiratory exam: PRESENT: wheezes Cardiovascular exam: PRESENT: RRR, +S1, +S2 Pulses: PRESENT: normal dorsalis pedis pul, +2 pedal pulses bilateral Vascular exam: PRESENT: normal capillary refill GI/Abdominal exam: PRESENT: normal bowel sounds, soft Rectal exam: PRESENT: deferred Neurological exam: PRESENT: alert, CN II-XII grossly intact Psychiatric exam: ABSENT: homicidal ideation, suicidal ideation Skin exam: PRESENT: dry, intact, warm Results Laboratory Results: 04/09/19 15:16 04/09/19 15:16 04/09/19 04/09/19 04/09/19 15:16 15:16 15:16 WBC 11.8 H RBC 3.10 L Hgb 9.3 L Hct 28.0 L MCV 90 MCH 29.9 MCHC 33.1 RDW 16.1 H Plt Count 237 Seg Neutrophils % 80.7 H Sodium 139.3 Potassium 3.6 Chloride 100 Carbon Dioxide 31 H Anion Gap 8 BUN 26 H Creatinine 1.87 H Est GFR ( Amer) 33 L Glucose 120 H Lactic Acid 1.3 Calcium 8.6 Total Bilirubin 0.3 AST 22 Alkaline Phosphatase 85 Total Protein 6.4 Albumin 3.4 L 04/09/19 21:17 Creatine Kinase 51 Impressions: Chest X-Ray 04/09/19 14:01 IMPRESSION: Cannot exclude right upper lobe or left lower lobe pneumonia. Assessment & Plan - Diagnosis (1) Pneumonia Qualifiers: Pneumonia type: due to unspecified organism Laterality: unspecified laterality Lung location: unspecified part of lung Qualified Code(s): J18.9 - Pneumonia, unspecified organism Is this a current diagnosis for this admission?: Yes Plan: Treat with antibiotic (2) Chronic respiratory failure with hypoxia and hypercapnia Is this a current diagnosis for this admission?: Yes Plan: Patient on home oxygen, she may benefit from Trilogy, a noninvasive positive pressure device, she has COPD with increased work of breathing she usually comes to the hospital for evaluation of shortness of breath this is due primarily to increased work of breathing from obstructive lung disease if she has home noninvasive positive pressure device she can use the PPV when she gets short of breath, this strategy will reduce the multiple hospitali zation.Consultation will be requested from pulmonary to be consider for noninvasive positive pressure ventilation.She is a full code family is not in the mindset yet to transition care to palliative/hospice (3) Fluid retention Is this a current diagnosis for this admission?: Yes (4) COPD exacerbation Is this a current diagnosis for this admission?: Yes
[2019-04-09 22:16] LABS: CREATINE KINASE MB 0.59 ng/mL (<4.55); NT PRO BNP 220 pg/mL (5-900)
[2019-04-09 22:17] LABS: TROPONIN I < 0.012 ng/mL
[2019-04-09] MEDS: CETIRIZINE 5 MG TABLET PO SCH (23:14)
[2019-04-09] MEDS: FONDAPARINUX SODIUM INJ 7.5 MG/0.6 ML DISP.SYRIN SUBCUT SCH (23:14)
[2019-04-09] MEDS: OXYCODONE HCL IR 5 MG TABLET PO PRN (23:15)
[2019-04-09] MEDS: ALPRAZOLAM 0.5 MG TABLET PO SCH (23:15)
[2019-04-09] MEDS: ZOLPIDEM TARTRATE 5 MG TABLET PO SCH (23:17)
[2019-04-09] MEDS: LEVOFLOXACIN 750 MG/D5W RTU 750 MG/150 ML RTUPB IV SCH (23:17)
[2019-04-09] MEDS: PRIMIDONE 50 MG TABLET PO SCH (23:22)
[2019-04-09] MEDS: RAMIPRIL 2.5 MG CAPSULE PO SCH (23:22)
[2019-04-09] MEDS: FLUTICASONE/UMECLIDIN/VILANTER 100-62.5-25 MCG/DOSE IH SCH (23:23)
[2019-04-09] MEDS: FLUTICASONE NASAL SPRAY 50 MCG/SPRY 120 SPRAY/16 GM NASL SCH (23:24)
[2019-04-09] MEDS: ROPINIROLE HCL 0.25 MG TABLET PO SCH (23:24)
[2019-04-09] MEDS: TORSEMIDE 20 MG TABLET PO SCH (23:25)
[2019-04-09] MEDS: DULOXETINE HCL 30 MG CAPSULE.DR PO SCH (23:31)
[2019-04-09] MEDS: ATORVASTATIN CALCIUM 20 MG TABLET PO SCH (23:31)
[2019-04-09] MEDS: FLUOXETINE HCL 20 MG CAPSULE PO SCH (23:31)
[2019-04-09] MEDS: POTASSIUM CHLORIDE 10 MEQ CAPSULE.ER PO SCH (23:32)
[2019-04-10] MEDS ORDERED: (PENDING PHARMACY ID) (Levothyroxine Sodium [Synthroid] 250 MCG) PO SCH (06:00)
[2019-04-10] MEDS: PRIMIDONE 50 MG TABLET PO SCH ×3 (06:13→23:20)
[2019-04-10] MEDS: PANTOPRAZOLE SODIUM 20 MG TABLET.DR PO SCH (06:14)
[2019-04-10] MEDS: LEVOTHYROXINE SODIUM 0.1 MG TABLET PO SCH (06:14)
[2019-04-10] MEDS: LEVOTHYROXINE SODIUM 0.15 MG TABLET PO SCH (06:14)
[2019-04-10 06:56] LABS: ABSOLUTE LYMPHOCYTES (AUTO) 0.9 10^3/uL (0.5-4.7); ABSOLUTE MONOCYTES (AUTO) 0.6 10^3/uL (0.1-1.4); ABSOLUTE NEUT (AUTO) 6.2 10^3/uL (1.7-8.2); BASOPHILS % (AUTO) 0.2 % (0-2); EOSINOPHILS % (AUTO) 0.2 % (0-6); HEMOGLOBIN 8.6 g/dL (12.0-15.5); LYMPHOCYTES % (AUTO) 11.6 % (13-45); MEAN CORPUSCULAR HEMOGLOBIN 29.8 pg (27.0-33.4); MEAN CORPUSCULAR HGB CONC 33.1 g/dL (32.0-36.0); MEAN CORPUSCULAR VOLUME 90 fl (80-97); MONOCYTES % (AUTO) 7.8 % (3-13); PLATELET COUNT 215 10^3/uL (150-450); RED BLOOD COUNT 2.88 10^6/uL (3.72-5.28); SEGMENTED NEUTROPHILS % (AUTO) 80.2 % (42-78); TOTAL CELLS COUNTED % (AUTO) 100 %; WHITE BLOOD COUNT 7.7 10^3/uL (4.0-10.5)
[2019-04-10 07:23] LABS: ALBUMIN 2.9 g/dL (3.5-5.0); ALKALINE PHOSPHATASE 76 U/L (38-126); ANION GAP 8 (5-19); ASPARTATE AMINO TRANSFERASE 20 U/L (14-36); BILIRUBIN,DIRECT 0.2 mg/dL (0.0-0.4); BILIRUBIN,TOTAL 0.2 mg/dL (0.2-1.3); BLOOD UREA NITROGEN 28 mg/dL (7-20); CALCIUM 8.3 mg/dL (8.4-10.2); CARBON DIOXIDE 32 mmol/L (22-30); CHLORIDE 98 mmol/L (98-107); GLUCOSE 83 mg/dL (75-110); POTASSIUM 4.2 mmol/L (3.6-5.0); TOTAL PROTEIN 5.7 g/dL (6.3-8.2)
[2019-04-10] MEDS: POTASSIUM CHLORIDE 10 MEQ CAPSULE.ER PO SCH (09:52)
[2019-04-10] MEDS: TORSEMIDE 20 MG TABLET PO SCH (09:52)
[2019-04-10] MEDS: ALPRAZOLAM 0.5 MG TABLET PO SCH ×4 (09:54→23:22)
[2019-04-10] MEDS: PRENATAL VITAMIN W DHA CAPSULE PO SCH (09:54)
[2019-04-10] MEDS: FLUOXETINE HCL 20 MG CAPSULE PO SCH (09:54)
[2019-04-10] MEDS: DULOXETINE HCL 30 MG CAPSULE.DR PO SCH (09:54)
[2019-04-10] MEDS: DONEPEZIL HCL 5 MG TABLET PO SCH (09:55)
[2019-04-10] MEDS: ATORVASTATIN CALCIUM 20 MG TABLET PO SCH (09:55)
[2019-04-10] MEDS: ROPINIROLE HCL 0.25 MG TABLET PO SCH ×2 (09:55→18:16)
[2019-04-10] MEDS: OXYCODONE HCL IR 5 MG TABLET PO PRN ×2 (10:18→18:16)
[2019-04-10 10:21] LABS: APPEARANCE,URINE CLEAR; BILIRUBIN,URINE NEGATIVE (NEGATIVE); COLOR,URINE STRAW; GLUCOSE, URINE NEGATIVE (NEGATIVE); KETONES,URINE NEGATIVE (NEGATIVE); LEUKOCYTE ESTERASE,URINE TRACE (NEGATIVE); NITRITE,URINE NEGATIVE (NEGATIVE); PROTEIN,URINE NEGATIVE (NEGATIVE); URINE SPECIFIC GRAVITY 1.006; UROBILINOGEN,URINE NEGATIVE mg/dL (<2.0)
[2019-04-10] MEDS: FONDAPARINUX SODIUM INJ 7.5 MG/0.6 ML DISP.SYRIN SUBCUT SCH (10:26)
[2019-04-10] MEDS: FLUTICASONE NASAL SPRAY 50 MCG/SPRY 120 SPRAY/16 GM NASL SCH (10:27)
[2019-04-10] MEDS ORDERED: FLUTICASONE/UMECLIDIN/VILANTER 100-62.5-25 MCG/DOSE IH ONE (11:00)
--- NOTE | 2019-04-10 11:14 | PDOC CONSULTATION ---
Consultation Consult Date: 04/10/19 Attending physician:: JIN KAUFFMAN Provider Consulted: KIMBERLY LÓPEZ Consult reason:: Acute/chronic hypoxic respiratory failure History of Present Illness Admission Date/PCP: 04/09/19 17:32 MARK HAILE MD History of Present Illness: LEATHA ATKINS is a 63 year old female, 5 days status post discharge well-known to [facility] presented to the emergency room several hours of gurgling and shortness of breath her SaO2 was in the 80s she was subsequently admitted she is on home oxygen but no NIPPV. She has significant problems with aspiration and laryngeal penetration which was documented March 30, 2019 by modified barium swallow. She also has some chronic renal failure this appears to be stable at this time. She had an echocardiogram done June 2018 showed ejection fraction greater than 70% technically unable to make comments about pulmonary hypertension or any other right-sided pressures. She has [id number] history but has not smoked in the last 4 years no pets no recent travel no angina-like chest pain sleeps on 3-4 pillows frequent PND frequent nocturnal cough occasional edema Past Medical History Cardiac Medical History: Reports: Congestive Heart Failure, Hyperlipidema, Hypertension Denies: Atrial Fibrillation, Coronary Artery Disease - HIGH CHOLESTEROL, DVT, Myocardial Infarction, Pulmonary Embolism Pulmonary Medical History: Reports: Asthma, Bronchitis, Chronic Obstructive Pulmonary Disease (COPD), Pneumonia - Several admissions within the last 12 months, Respiratory Failure Denies: Tuberculosis Neurological Medical History: Denies: Seizures Endocrine Medical History: Reports: Hypothyroidism Denies: Diabetes Mellitus Type 1, Diabetes Mellitus Type 2, Hyperthyroidism Renal/ Medical History: Reports: Chronic Kidney Disease Denies: End Stage Renal Disease GI Medical History: Denies: Cirrhosis, Crohn's Disease, Hepatitis, Ulcerative Colitis Musculoskeltal Medical History: Reports: Arthritis Denies: Fibromyalgia, Gout Skin Medical History: Denies: Eczema, Psoriasis Psychiatric Medical History: Reports: Depression Traumatic Medical History: Denies: Stab Wound, Traumatic Brain Injury Hematology: Reports: Anemia Denies: Sickle Cell Disease, Bleeding Tendencies Infectious Medical History: Denies: HIV Past Surgical History Past Surgical History: Reports: Hysterectomy, Orthopedic Surgery - Wrist fracture repair, Tubal Ligation Social History Information Source: Patient, [facility] Records Smoking Status: Unknown if Ever Smoked Frequency of Alcohol Use: None Hx Recreational Drug Use: No Drugs: None Hx Prescription Drug Abuse: No Do you have pets?: No Have you had any respiratory illnesses as a child?: No Have you been exposed to any sick contacts recently?: No Have you had any recent respiratory illnesses?: No Have you travelled outside of [place] in the past 12 months?: No Family History Family History: CAD, Hypertension. denies: DM, Malignancy Parental Family History Reviewed: Yes Children Family History Reviewed: Yes Sibling(s) Family History Reviewed.: Yes Medication/Allergy Home Medications: Albuterol Sulfate [Proair Hfa Inhalation Aerosol 8.5 gm Mdi] 1 puff IH QIDP PRN 04/09/19 Albuterol Sulfate [Ventolin 0.083% Neb 2.5 mg/3 ml Ampul] 1 vial NEB RTQ6HP PRN 04/09/19 Alprazolam [Xanax 0.5 mg Tablet] 0.5 mg PO QID 04/09/19 Atorvastatin Calcium [Lipitor 20 mg Tablet] 20 mg PO DAILY 04/09/19 Azelastine 0.1 % Nasal Campus 1 spray NASL BID 04/09/19 Butorphanol Tartrate 1 spray NS DAILYP PRN 04/09/19 Cyclobenzaprine HCl [Flexeril 10 mg Tablet] 10 mg PO TIDP PRN 04/09/19 Dicyclomine HCl [Bentyl 10 mg Capsule] 10 mg PO QIDP PRN 04/09/19 Diphenoxylate HCl/Atropine [Lomotil Tablet] 1 each PO DAILYP PRN 04/09/19 Donepezil HCl [Aricept] 10 mg PO DAILY 04/09/19 Duloxetine HCl [Cymbalta 30 mg Capsule.dr] 60 mg PO DAILY 04/09/19 Ergocalciferol (Vitamin D2) [Drisdol 50,000 Unit (1.25MG) Capsule] 50,000 unit PO [id number] 04/09/19 Eszopiclone [Lunesta] 3 mg PO QHS 04/09/19 Fluoxetine HCl [Prozac 20 mg Capsule] 80 mg PO DAILY 04/09/19 Fluticasone Propionate [Flonase Nasal Campus 50 Mcg/Campus 16 gm] 1 spray NASL DAILY 04/09/19 Fluticasone/Umeclidin/Vilanter [Trelegy 100-62.5-25 Mcg Ellipta 14 Dose/Dpi] 1 each IH DAILY 04/09/19 Fondaparinux Sodium [Arixtra Inj 7.5 mg/0.6 ml Disp. Syrin] 7.5 mg SUBCUT DAILY 04/09/19 Levocetirizine Dihydrochloride [Xyzal] 5 mg PO QHS 04/09/19 Levothyroxine Sodium [Synthroid] 250 mcg PO Q6AM 04/09/19 Magnesium Oxide [Mag-Ox 400 mg Tablet] 400 mg PO DAILY 04/09/19 Menthol/Zinc Oxide [Calmoseptine Ointment] 1 applic TP TIDP PRN 04/09/19 Metolazone [Zaroxolyn 5 Mg Tablet] 5 mg PO DAILY 04/09/19 Nystatin [Nystop] 1 applic TP BIDP PRN 04/09/19 Omeprazole 20 mg PO Q6AM 04/09/19 Oxycodone HCl [Oxy-Ir 5 mg Tablet] 15 mg PO Q6HP PRN 04/09/19 Pnv,Calcium 72/Iron/Folic Acid [ Vitamin with Low Iron] 1 each PO DAILY 04/09/19 Potassium Chloride [Klor-Con 10 Meq Capsule ER] 20 meq PO DAILY 04/09/19 Primidone [Mysoline] 50 mg PO Q8 04/09/19 Promethazine HCl [Phenergan 25 mg Tablet] 25 mg PO Q8HP PRN 04/09/19 Ramipril [Altace 2.5 mg Capsule] 2.5 mg PO QHS 04/09/19 Ropinirole HCl [Requip 0.25 Mg Tablet] 0.25 mg PO BID 04/09/19 Torsemide [Demadex 20 mg Tablet] 40 mg PO DAILY 04/09/19 Allergies/Adverse Reactions: pregabalin [From Lyrica] Allergy (Unknown, Verified 03/08/19 22:52) trazodone HCl [From Desyrel] Allergy (Unknown, Verified 03/08/19 22:52) cephalexin monohydrate [From Keflex] Adverse Reaction (Verified 03/08/19 22:52) nausea, vomiting erythromycin base [Erythromycin Base] Adverse Reaction (Verified 03/08/19 22:52) nausea, vomiting gabapentin Adverse Reaction (Verified 03/08/19 22:52) Nausea guaifenesin [From Entex T] Adverse Reaction (Verified 03/08/19 22:52) Nausea pseudoephedrine [From Entex T] Adverse Reaction (Verified 03/08/19 22:52) Nausea Review of Systems All systems: reviewed and no additional remarkable complaints except as stated Physical Exam Vital Signs: Temp Pulse Resp BP Pulse Ox 97.5 F 96 16 105/46 L 100 04/10/19 09:02 04/10/19 09:02 04/10/19 09:02 04/10/19 09:02 04/10/19 09:02 Intake & Output 04/09/19 04/10/19 04/11/19 06:59 06:59 06:59 Intake Total 1560 Output Total 750 Balance 810 Weight 115.9 kg General appearance: PRESENT: no acute distress, cooperative, disheveled, morbidly obese, well-developed, well-nourished Head exam: PRESENT: atraumatic, normocephalic Eye exam: PRESENT: conjunctiva pale, EOMI. ABSENT: nystagmus, periorbital swelling, scleral icterus Mouth exam: PRESENT: dry mucosa, neck supple, tongue midline Neck exam: ABSENT: carotid bruit, full ROM, JVD, lymphadenopathy, meningismus, tenderness, thyromegaly, tracheal deviation, tracheostomy, other Respiratory exam: PRESENT: decreased breath sounds, prolonged expiratory phas, rhonchi, symmetrical, unlabored. ABSENT: retraction, stridor, tachypnea Cardiovascular exam: PRESENT: RRR, +S1, +S2. ABSENT: tachycardia Pulses: PRESENT: normal radial pulses GI/Abdominal exam: PRESENT: normal bowel sounds, soft. ABSENT: distended, guarding, mass, rebound, tenderness Extremities exam: ABSENT: calf tenderness, clubbing, joint swelling, tenderness Musculoskeletal exam: ABSENT: ambulatory, deformity Neurological exam: PRESENT: alert, awake Psychiatric exam: PRESENT: appropriate affect Skin exam: PRESENT: dry, warm Results Laboratory Results: 04/10/19 06:19 04/10/19 06:19 04/09/19 04/09/19 04/09/19 15:16 15:16 15:16 WBC 11.8 H RBC 3.10 L Hgb 9.3 L Hct 28.0 L MCV 90 MCH 29.9 MCHC 33.1 RDW 16.1 H Plt Count 237 Seg Neutrophils % 80.7 H Sodium 139.3 Potassium 3.6 Chloride 100 Carbon Dioxide 31 H Anion Gap 8 BUN 26 H Creatinine 1.87 H Est GFR ( Amer) 33 L Glucose 120 H Lactic Acid 1.3 Calcium 8.6 Total Bilirubin 0.3 AST 22 Alkaline Phosphatase 85 Total Protein 6.4 Albumin 3.4 L 04/10/19 04/10/19 06:19 06:19 WBC 7.7 RBC 2.88 L Hgb 8.6 L Hct 26.0 L MCV 90 MCH 29.8 MCHC 33.1 RDW 16.0 H Plt Count 215 Seg Neutrophils % 80.2 H Sodium 137.9 Potassium 4.2 Chloride 98 Carbon Dioxide 32 H Anion Gap 8 BUN 28 H Creatinine 1.61 H Est GFR ( Amer) 39 L Glucose 83 Lactic Acid Calcium 8.3 L Total Bilirubin 0.2 AST 20 Alkaline Phosphatase 76 Total Protein 5.7 L Albumin 2.9 L 04/09/19 04/09/19 21:17 21:17 Creatine Kinase 51 CK-MB (CK-2) 0.59 Troponin I < 0.012 NT-Pro-B Natriuret Pep 220 Impressions: Chest X-Ray 04/09/19 14:01 IMPRESSION: Cannot exclude right upper lobe or left lower lobe pneumonia. Assessment & Plan - Diagnosis (1) Acute and chronic respiratory failure with hypoxia Is this a current diagnosis for this admission?: Yes Plan: Agree with bronchodilators subsequent supplemental oxygen as you have initiated patient has minimal CO2 retention therefore is can be hard at this time to get her qualified for noninvasive positive pressure ventilation. Her primary problem is being compliant with the diet and asked recurrent aspiration (2) COPD (chronic obstructive pulmonary disease) Qualifiers: Chronic bronchitis type: unspecified Is this a current diagnosis for this admission?: Yes Plan: Generic Name Dose Route Start Last Admin Trade Name Freq PRN Reason Stop Dose Admin Alprazolam 0.5 mg 04/09/19 22:00 04/09/19 23:15 Xanax 0.5 Mg Tablet PO 04/16/19 21:59 0.5 mg QID KEILY Albuterol 1 puff 04/09/19 20:40 Proair Hfa Inhalation Aerosol 8.5 Gm Mdi IH 05/09/19 20:39 QIDP PRN SOB Albuterol 2.5 mg 04/09/19 20:40 04/09/19 23:33 Ventolin 0.083% Neb 2.5 Mg/3 Ml Ampul NEB 05/09/19 20:39 2.5 mg RTQ6HP PRN WHEEZING Fluticasone/Vilanterol 1 inh 04/09/19 20:45 04/09/19 23:23 Trelegy 100-62.5-25 Mcg Ellipta 14 Dose/Dpi IH 05/09/19 20:44 1 inhaler DAILY KEILY Zolpidem Tartrate 5 mg 04/09/19 22:00 04/09/19 23:17 Ambien 5 Mg Tablet PO 04/16/19 21:59 Not Given QHS KEILY Fluticasone Propionate 1 spray 04/09/19 20:45 04/09/19 23:24 Flonase Nasal Campus 50 Mcg/Campus 16 Gm NASL 05/09/19 20:44 1 spray DAILY KEILY Levofloxacin/Dextrose 750 mg in 150 mls @ 100 mls/hr 04/09/19 22:00 04/10/19 06:15 Levaquin Rtu 750 Mg/D5w 150 Ml Premix IV 04/16/19 21:59 Infused QHS KEILY (3) Chronic kidney disease, stage 3 Is this a current diagnosis for this admission?: Yes Plan: per nephrology Labs- All tests 24 hr 04/09/19 04/10/19 15:16 06:19 BUN 26 H 28 H Creatinine 1.87 H 1.61 H (4) Dysphasia Is this a current diagnosis for this admission?: Yes Plan: see mod ba swallow 03/30/19 (5) Hypertension Qualifiers: Hypertension type: essential hypertension Qualified Code(s): I10 - Essential (primary) hypertension Is this a current diagnosis for this admission?: Yes Plan: stable at this time;echo 06/24/18 good EF> 70% no comment PHTN (6) Obesity Qualifiers: Obesity type: due to excess calories Serious obesity comorbidity presence: unspecified whether serious comorbidity present Body mass index: BMI 40.0-44.9 Is this a current diagnosis for this admission?: Yes Plan: consider dietary consult (7) Aspiration into airway Qualifiers: Encounter type: subsequent encounter Qualified Code(s): T17.908D - Unspecified foreign body in respiratory tract, part unspecified causing other injury, subsequent encounter Is this a current diagnosis for this admission?: Yes Plan: please mod ba swallow 03/30/19
[2019-04-10] MEDS: FLUTICASONE/UMECLIDIN/VILANTER 100-62.5-25 MCG/DOSE IH SCH (14:19)
--- NOTE | 2019-04-10 21:28 | PDOC PROGRESS REPORT ---
Subjective Progress Note for:: 04/10/19 Subjective:: Patient seen by the bedside, the is particularly concerned about the fluid retention and the persistent shortness of breath. She was seen today in consultation by the remote computer terminal operator, Dr. Anderson.She is also requesting a Rodriguez catheter because of the effort involved in getting out of bed to the bathroom to urinate Reason For Visit: PNEUMONIA,ACUTE ON CHRONIC RESPIRATORY FAILURE, Physical Exam Vital Signs: Temp Pulse Resp BP Pulse Ox 98.2 F 98 16 126/54 H 98 04/10/19 17:01 04/10/19 17:01 04/10/19 17:01 04/10/19 17:01 04/10/19 17:01 Intake & Output 04/09/19 04/10/19 04/11/19 06:59 06:59 06:59 Intake Total 1560 704 Output Total 750 600 Balance 810 104 Weight 115.9 kg General appearance: PRESENT: no acute distress Eye exam: PRESENT: PERRLA Respiratory exam: PRESENT: wheezes Cardiovascular exam: PRESENT: +S1, +S2 GI/Abdominal exam: PRESENT: soft Neurological exam: PRESENT: alert Results Laboratory Results: 04/10/19 06:19 04/10/19 06:19 04/10/19 04/10/19 04/10/19 06:19 06:19 10:13 WBC 7.7 RBC 2.88 L Hgb 8.6 L Hct 26.0 L MCV 90 MCH 29.8 MCHC 33.1 RDW 16.0 H Plt Count 215 Seg Neutrophils % 80.2 H Sodium 137.9 Potassium 4.2 Chloride 98 Carbon Dioxide 32 H Anion Gap 8 BUN 28 H Creatinine 1.61 H Est GFR ( Amer) 39 L Glucose 83 Calcium 8.3 L Total Bilirubin 0.2 AST 20 Alkaline Phosphatase 76 Total Protein 5.7 L Albumin 2.9 L Urine Color STRAW Urine Appearance CLEAR Urine pH 5.0 Ur Specific [place] 1.006 Urine Protein NEGATIVE Urine Glucose (UA) NEGATIVE Urine Ketones NEGATIVE Urine Blood NEGATIVE Urine Nitrite NEGATIVE Ur Leukocyte Esterase TRACE H Urine WBC (Auto) 5 Urine RBC (Auto) 0 04/09/19 04/09/19 21:17 21:17 Creatine Kinase 51 CK-MB (CK-2) 0.59 Troponin I < 0.012 NT-Pro-B Natriuret Pep 220 Impressions: Chest X-Ray 04/09/19 14:01 IMPRESSION: Cannot exclude right upper lobe or left lower lobe pneumonia. Assessment & Plan - Diagnosis (1) Pneumonia Qualifiers: Pneumonia type: due to unspecified organism Laterality: unspecified laterality Lung location: unspecified part of lung Qualified Code(s): J18.9 - Pneumonia, unspecified organism Is this a current diagnosis for this admission?: Yes Plan: Continue IV antibiotic (2) Chronic respiratory failure with hypoxia and hypercapnia Is this a current diagnosis for this admission?: Yes (3) Fluid retention Is this a current diagnosis for this admission?: Yes Plan: I sent a notice to the nurses to apply Unna boot on the lower extremities (4) COPD exacerbation Is this a current diagnosis for this admission?: Yes
[2019-04-10] MEDS: LEVOFLOXACIN 750 MG/D5W RTU 750 MG/150 ML RTUPB IV SCH (23:17)
[2019-04-10] MEDS: RAMIPRIL 2.5 MG CAPSULE PO SCH (23:19)
[2019-04-10] MEDS: ZOLPIDEM TARTRATE 5 MG TABLET PO SCH (23:20)
[2019-04-10] MEDS: CETIRIZINE 5 MG TABLET PO SCH (23:22)
[2019-04-11] MEDS: LEVOTHYROXINE SODIUM 0.15 MG TABLET PO SCH (05:47)
[2019-04-11] MEDS: PRIMIDONE 50 MG TABLET PO SCH ×3 (05:47→22:44)
[2019-04-11] MEDS: LEVOTHYROXINE SODIUM 0.1 MG TABLET PO SCH (05:47)
[2019-04-11] MEDS: PANTOPRAZOLE SODIUM 20 MG TABLET.DR PO SCH (05:47)
[2019-04-11 06:03] LABS: ABSOLUTE EOSINOPHILS # (AUTO) 0.3 10^3/uL (0.0-0.6); ABSOLUTE LYMPHOCYTES (AUTO) 1.8 10^3/uL (0.5-4.7); ABSOLUTE MONOCYTES (AUTO) 0.7 10^3/uL (0.1-1.4); ABSOLUTE NEUT (AUTO) 3.3 10^3/uL (1.7-8.2); BASOPHILS % (AUTO) 0.6 % (0-2); EOSINOPHILS % (AUTO) 5.2 % (0-6); HEMATOCRIT 25.6 % (36.0-47.0); HEMOGLOBIN 8.5 g/dL (12.0-15.5); LYMPHOCYTES % (AUTO) 29.8 % (13-45); MEAN CORPUSCULAR HEMOGLOBIN 29.5 pg (27.0-33.4); MEAN CORPUSCULAR HGB CONC 33.2 g/dL (32.0-36.0); MEAN CORPUSCULAR VOLUME 89 fl (80-97); MONOCYTES % (AUTO) 11.1 % (3-13); PLATELET COUNT 202 10^3/uL (150-450); RED BLOOD COUNT 2.88 10^6/uL (3.72-5.28); RED CELL DISTRIBUTION WIDTH 15.7 % (11.5-14.0); SEGMENTED NEUTROPHILS % (AUTO) 53.3 % (42-78); TOTAL CELLS COUNTED % (AUTO) 100 %; WHITE BLOOD COUNT 6.2 10^3/uL (4.0-10.5)
[2019-04-11 06:26] LABS: ALBUMIN 2.8 g/dL (3.5-5.0); ALKALINE PHOSPHATASE 74 U/L (38-126); ANION GAP 8 (5-19); ASPARTATE AMINO TRANSFERASE 19 U/L (14-36); BILIRUBIN,DIRECT 0.2 mg/dL (0.0-0.4); BILIRUBIN,TOTAL 0.3 mg/dL (0.2-1.3); BLOOD UREA NITROGEN 28 mg/dL (7-20); CALCIUM 7.9 mg/dL (8.4-10.2); CARBON DIOXIDE 31 mmol/L (22-30); CHLORIDE 98 mmol/L (98-107); GLUCOSE 84 mg/dL (75-110); POTASSIUM 3.6 mmol/L (3.6-5.0); TOTAL PROTEIN 5.7 g/dL (6.3-8.2)
[2019-04-11] MEDS: TORSEMIDE 20 MG TABLET PO SCH (10:33)
[2019-04-11] MEDS: DULOXETINE HCL 30 MG CAPSULE.DR PO SCH (10:34)
[2019-04-11] MEDS: ROPINIROLE HCL 0.25 MG TABLET PO SCH ×2 (10:34→17:20)
[2019-04-11] MEDS: POTASSIUM CHLORIDE 10 MEQ CAPSULE.ER PO SCH (10:34)
[2019-04-11] MEDS: DONEPEZIL HCL 5 MG TABLET PO SCH (10:35)
[2019-04-11] MEDS: ATORVASTATIN CALCIUM 20 MG TABLET PO SCH (10:35)
[2019-04-11] MEDS: ALPRAZOLAM 0.5 MG TABLET PO SCH ×4 (10:35→22:44)
[2019-04-11] MEDS: FLUTICASONE/UMECLIDIN/VILANTER 100-62.5-25 MCG/DOSE IH SCH (10:35)
[2019-04-11] MEDS: FLUTICASONE NASAL SPRAY 50 MCG/SPRY 120 SPRAY/16 GM NASL SCH (10:35)
[2019-04-11] MEDS: FLUOXETINE HCL 20 MG CAPSULE PO SCH (10:35)
[2019-04-11] MEDS: FONDAPARINUX SODIUM INJ 7.5 MG/0.6 ML DISP.SYRIN SUBCUT SCH (10:36)
[2019-04-11] MEDS: PRENATAL VITAMIN W DHA CAPSULE PO SCH (10:39)
[2019-04-11] MEDS: PROMETHAZINE HCL 25 MG TABLET PO PRN ×2 (10:43→20:08)
[2019-04-11] MEDS: DICYCLOMINE HCL 10 MG CAPSULE PO PRN ×3 (10:44→23:04)
[2019-04-11 10:53] LABS: ABSOLUTE RETICS # 0.048 10^6/uL (0.028-0.122); RETICULOCYTE COUNT (AUTO) 1.67 % (0.66-2.85)
--- NOTE | 2019-04-11 11:08 | PDOC PROGRESS REPORT ---
Subjective Progress Note for:: 04/11/19 Subjective:: Patient was admitted for the COPD pneumonia Patient is currently doing much better Patient's denied any chest pain no short of breath Patient have a chronic anemia used to see the geospatial imagery intelligence analyst to receive the iron transfusion in the past Dr. Foster and the family requested can ask Dr. Foster because patient have a difficult time to go to the office due to the mobility issues Reason For Visit: PNEUMONIA,ACUTE ON CHRONIC RESPIRATORY FAILURE, Physical Exam Vital Signs: Temp Pulse Resp BP Pulse Ox 98.3 F 92 24 H 100/34 L 100 04/11/19 07:50 04/11/19 07:50 04/11/19 07:50 04/11/19 07:50 04/11/19 07:50 Intake & Output 04/10/19 04/11/19 04/12/19 06:59 06:59 06:59 Intake Total 1560 964 Output Total 750 1050 Balance 810 -86 Weight 115.9 kg 115.7 kg General appearance: PRESENT: no acute distress, well-developed, well-nourished Head exam: PRESENT: atraumatic, normocephalic Eye exam: PRESENT: conjunctiva pink, EOMI, PERRLA. ABSENT: scleral icterus Ear exam: PRESENT: normal external ear exam Mouth exam: PRESENT: moist, tongue midline Neck exam: PRESENT: full ROM. ABSENT: carotid bruit, JVD, lymphadenopathy, thyromegaly Respiratory exam: PRESENT: clear to auscultation allison Cardiovascular exam: PRESENT: RRR. ABSENT: diastolic murmur, rubs, systolic murmur Pulses: PRESENT: normal dorsalis pedis pul, +2 pedal pulses bilateral Vascular exam: PRESENT: normal capillary refill GI/Abdominal exam: PRESENT: normal bowel sounds, soft. ABSENT: distended, guarding, mass, organolmegaly, rebound, tenderness Rectal exam: PRESENT: deferred Neurological exam: PRESENT: alert, awake, oriented to person, oriented to place, oriented to time, oriented to situation, CN II-XII grossly intact. ABSENT: motor sensory deficit Psychiatric exam: PRESENT: appropriate affect, normal mood. ABSENT: homicidal ideation, suicidal ideation Skin exam: PRESENT: dry, intact, warm. ABSENT: cyanosis, rash Results Laboratory Results: 04/11/19 05:13 04/11/19 05:13 04/11/19 04/11/19 04/11/19 05:13 05:13 05:13 WBC 6.2 RBC 2.88 L Hgb 8.5 L Hct 25.6 L MCV 89 MCH 29.5 MCHC 33.2 RDW 15.7 H Plt Count 202 Seg Neutrophils % 53.3 Retic Count (auto) 1.67 Sodium 136.7 L Potassium 3.6 Chloride 98 Carbon Dioxide 31 H Anion Gap 8 BUN 28 H Creatinine 1.80 H Est GFR ( Amer) 34 L Glucose 84 Calcium 7.9 L Total Bilirubin 0.3 AST 19 Alkaline Phosphatase 74 Total Protein 5.7 L Albumin 2.8 L 04/09/19 04/09/19 21:17 21:17 Creatine Kinase 51 CK-MB (CK-2) 0.59 Troponin I < 0.012 NT-Pro-B Natriuret Pep 220 Impressions: Chest X-Ray 04/09/19 14:01 IMPRESSION: Cannot exclude right upper lobe or left lower lobe pneumonia. Assessment & Plan - Diagnosis (1) COPD exacerbation Is this a current diagnosis for this admission?: Yes (2) Fluid retention Is this a current diagnosis for this admission?: Yes (3) Pneumonia Qualifiers: Pneumonia type: due to unspecified organism Laterality: bilateral Lung location: lower lobe of lung Qualified Code(s): J18.1 - Lobar pneumonia, uns pecified organism Is this a current diagnosis for this admission?: Yes (4) Acute hypoxemic respiratory failure Is this a current diagnosis for this admission?: Yes (5) Anemia in chronic kidney disease Qualifiers: Chronic kidney disease stage: stage 3 (moderate) Qualified Code(s): N18.3 - Chronic kidney disease, stage 3 (moderate); D63.1 - Anemia in chronic kidney disease Is this a current diagnosis for this admission?: Yes (6) Chronic back pain Is this a current diagnosis for this admission?: Yes (7) Hypertension Qualifiers: Hypertension type: essential hypertension Qualified Code(s): I10 - Essential (primary) hypertension Is this a current diagnosis for this admission?: Yes - Time Time Spent with patient: 15-24 minutes Medications reviewed and adjusted accordingly: Yes Anticipated discharge: Other Within: Other - Plan Summary Plan Summary: Continues to IV antibiotic Continues to nebulizer treatments Will get the iron studies Consult the hematology as well patient have a difficult time to go to the office to get the iron transfusions No sign of any acute blood loss We will do the stool for the guaiac study This with the patient and the family and the bedside regarding the patient's current conditions
[2019-04-11 11:10] LABS: IRON(TIBC) 29.8 ug/dL (37-170)
[2019-04-11 12:19] LABS: FOLATE > 20.00 ng/mL (>2.76)
[2019-04-11] MEDS: OXYCODONE HCL IR 5 MG TABLET PO PRN ×2 (13:12→19:59)
--- NOTE | 2019-04-11 17:18 | PDOC CONSULTATION ---
Consultation Consult Date: 04/11/19 Provider Consulted: LYNDA PETERS Consult reason:: Hematology/Oncology Consultation was requested for a patient known to our practice with history of iron deficiency anemia. History of Present Illness Admission Date/PCP: 04/09/19 17:32 MARK HAILE MD History of Present Illness: LEATHA ATKINS is a 63 year old female with a history of iron deficiency anemia requiring IV iron infusions in the past. She has been in and out of the hospital several times in the last few months for recurrent pneumonia. It is thought that she may be having some underlying aspiration. Today, she states that she feels very tired, similar to previously when she needed an IV iron infusion. She asks if she can get this again. She is very tired on being in the hospital and would like to feel better. She states that her feet have been more swollen during this admission, but otherwise, no significant change from previously. Past Medical History Cardiac Medical History: Reports: Congestive Heart Failure, Hyperlipidema, Hypertension Denies: Atrial Fibrillation, Coronary Artery Disease - HIGH CHOLESTEROL, DVT, Myocardial Infarction, Pulmonary Embolism Pulmonary Medical History: Reports: Asthma, Bronchitis, Chronic Obstructive Pulmonary Disease (COPD), Pneumonia - Several admissions within the last 12 mo nths, Respiratory Failure Denies: Tuberculosis Neurological Medical History: Denies: Seizures Endocrine Medical History: Reports: Hypothyroidism Denies: Diabetes Mellitus Type 1, Diabetes Mellitus Type 2, Hyperthyroidism Renal/ Medical History: Reports: Chronic Kidney Disease Denies: End Stage Renal Disease GI Medical History: Denies: Cirrhosis, Crohn's Disease, Hepatitis, Ulcerative Colitis Musculoskeltal Medical History: Reports: Arthritis Denies: Fibromyalgia, Gout Skin Medical History: Denies: Eczema, Psoriasis Psychiatric Medical History: Reports: Depression Traumatic Medical History: Denies: Stab Wound, Traumatic Brain Injury Hematology: Reports: Anemia Denies: Sickle Cell Disease, Bleeding Tendencies Infectious Medical History: Denies: HIV Past Surgical History Past Surgical History: Reports: Hysterectomy, Orthopedic Surgery - Wrist fracture repair, Tubal Ligation Social History Smoking Status: Former Smoker Frequency of Alcohol Use: None Hx Recreational Drug Use: No Drugs: None Hx Prescription Drug Abuse: No Family History Family History: CAD, Hypertension. denies: DM, Malignancy Parental Family History Reviewed: Yes Children Family History Reviewed: No Sibling(s) Family History Reviewed.: No Medication/Allergy Home Medications: Albuterol Sulfate [Proair Hfa Inhalation Aerosol 8.5 gm Mdi] 1 puff IH QIDP PRN 04/09/19 Albuterol Sulfate [Ventolin 0.083% Neb 2.5 mg/3 ml Ampul] 1 vial NEB RTQ6HP PRN 04/09/19 Alprazolam [Xanax 0.5 mg Tablet] 0.5 mg PO QID 04/09/19 Atorvastatin Calcium [Lipitor 20 mg Tablet] 20 mg PO DAILY 04/09/19 Azelastine 0.1 % Nasal [place] 1 spray NASL BID 04/09/19 Butorphanol Tartrate 1 spray NS DAILYP PRN 04/09/19 Cyclobenzaprine HCl [Flexeril 10 mg Tablet] 10 mg PO TIDP PRN 04/09/19 Dicyclomine HCl [Bentyl 10 mg Capsule] 10 mg PO QIDP PRN 04/09/19 Diphenoxylate HCl/Atropine [Lomotil Tablet] 1 each PO DAILYP PRN 04/09/19 Donepezil HCl [Aricept] 10 mg PO DAILY 04/09/19 Duloxetine HCl [Cymbalta 30 mg Capsule.dr] 60 mg PO DAILY 04/09/19 Ergocalciferol (Vitamin D2) [Drisdol 50,000 Unit (1.25MG) Capsule] 50,000 unit PO [id number] 04/09/19 Eszopiclone [Lunesta] 3 mg PO QHS 04/09/19 Fluoxetine HCl [Prozac 20 mg Capsule] 80 mg PO DAILY 04/09/19 Fluticasone Propionate [Flonase Nasal [place] 50 Mcg/[place] 16 gm] 1 spray NASL DAILY 04/09/19 Fluticasone/Umeclidin/Vilanter [Trelegy 100-62.5-25 Mcg Ellipta 14 Dose/Dpi] 1 each IH DAILY 04/09/19 Fondaparinux Sodium [Arixtra Inj 7.5 mg/0.6 ml Disp. Syrin] 7.5 mg SUBCUT DAILY 04/09/19 Levocetirizine Dihydrochloride [Xyzal] 5 mg PO QHS 04/09/19 Levothyroxine Sodium [Synthroid] 250 mcg PO Q6AM 04/09/19 Magnesium Oxide [Mag-Ox 400 mg Tablet] 400 mg PO DAILY 04/09/19 Menthol/Zinc Oxide [Calmoseptine Ointment] 1 applic TP TIDP PRN 04/09/19 Metolazone [Zaroxolyn 5 Mg Tablet] 5 mg PO DAILY 04/09/19 Nystatin [Nystop] 1 applic TP BIDP PRN 04/09/19 Omeprazole 20 mg PO Q6AM 04/09/19 Oxycodone HCl [Oxy-Ir 5 mg Tablet] 15 mg PO Q6HP PRN 04/09/19 Pnv,Calcium 72/Iron/Folic Acid [ Vitamin with Low Iron] 1 each PO DAILY 04/09/19 Potassium Chloride [Klor-Con 10 Meq Capsule ER] 20 meq PO DAILY 04/09/19 Primidone [Mysoline] 50 mg PO Q8 04/09/19 Promethazine HCl [Phenergan 25 mg Tablet] 25 mg PO Q8HP PRN 04/09/19 Ramipril [Altace 2.5 mg Capsule] 2.5 mg PO QHS 04/09/19 Ropinirole HCl [Requip 0.25 Mg Tablet] 0.25 mg PO BID 04/09/19 Torsemide [Demadex 20 mg Tablet] 40 mg PO DAILY 04/09/19 Allergies/Adverse Reactions: pregabalin [From Lyrica] Allergy (Unknown, Verified 03/08/19 22:52) trazodone HCl [From Desyrel] Allergy (Unknown, Verified 03/08/19 22:52) cephalexin monohydrate [From Keflex] Adverse Reaction (Verified 03/08/19 22:52) nausea, vomiting erythromycin base [Erythromycin Base] Adverse Reaction (Verified 03/08/19 22:52) nausea, vomiting gabapentin Adverse Reaction (Verified 03/08/19 22:52) Nausea guaifenesin [From Entex T] Adverse Reaction (Verified 03/08/19 22:52) Nausea pseudoephedrine [From Entex T] Adverse Reaction (Verified 03/08/19 22:52) Nausea Review of Systems Constitutional: ABSENT: fever(s), headache(s) Eyes: ABSENT: visual disturbances Ears: ABSENT: hearing changes Nose, Mouth, and Throat: ABSENT: sore throat Cardiovascular: PRESENT: dyspnea on exertion. ABSENT: chest pain Respiratory: PRESENT: cough, dyspnea Gastrointestinal: ABSENT: constipation Genitourinary: ABSENT: dysuria Musculoskeletal: PRESENT: back pain - Chronic Neurological: PRESENT: weakness Hematologic/Lymphatic: ABSENT: easy bleeding Physical Exam Vital Signs: Temp Pulse Resp BP Pulse Ox 98.3 F 91 16 105/37 L 98 04/11/19 11:35 04/11/19 15:40 04/11/19 15:40 04/11/19 11:35 04/11/19 15:40 Intake & Output 04/10/19 04/11/19 04/12/19 06:59 06:59 06:59 Intake Total 1560 964 510 Output Total 750 1050 Balance 810 -86 510 Weight 115.9 kg 115.7 kg General appearance: PRESENT: no acute distress, obese, well-developed Exam: 63 year old female. is at bedside. Head exam: PRESENT: atraumatic, normocephalic Eye exam: PRESENT: EOMI Mouth exam: PRESENT: tongue midline Neck exam: ABSENT: lymphadenopathy, tenderness Respiratory exam: PRESENT: wheezes - R>L Cardiovascular exam: PRESENT: other - Heart sounds obscured. GI/Abdominal exam: PRESENT: normal bowel sounds, soft. ABSENT: tenderness Extremities exam: PRESENT: +1 edema Neurological exam: PRESENT: alert, awake Psychiatric exam: PRESENT: appropriate affect Skin exam: PRESENT: normal color Results Laboratory Results: 04/11/19 05:13 04/11/19 05:13 04/11/19 04/11/19 04/11/19 05:13 05:13 05:13 WBC 6.2 RBC 2.88 L Hgb 8.5 L Hct 25.6 L MCV 89 MCH 29.5 MCHC 33.2 RDW 15.7 H Plt Count 202 Seg Neutrophils % 53.3 Retic Count (auto) 1.67 Sodium 136.7 L Potassium 3.6 Chloride 98 Carbon Dioxide 31 H Anion Gap 8 BUN 28 H Creatinine 1.80 H Est GFR ( Amer) 34 L Glucose 84 Calcium 7.9 L Iron TIBC % Saturation Ferritin Total Bilirubin 0.3 AST 19 Alkaline Phosphatase 74 Total Protein 5.7 L Albumin 2.8 L Vitamin B12 Folate 04/11/19 05:13 WBC RBC Hgb Hct MCV MCH MCHC RDW Plt Count Seg Neutrophils % Retic Count (auto) Sodium Potassium Chloride Carbon Dioxide Anion Gap BUN Creatinine Est GFR ( Amer) Glucose Calcium Iron 29.8 L TIBC 199 L % Saturation 15 Ferritin 140.00 Total Bilirubin AST Alkaline Phosphatase Total Protein Albumin Vitamin B12 841.0 Folate > 20.00 04/09/19 04/09/19 21:17 21:17 Creatine Kinase 51 CK-MB (CK-2) 0.59 Troponin I < 0.012 NT-Pro-B Natriuret Pep 220 Impressions: Chest X-Ray 04/09/19 14:01 IMPRESSION: Cannot exclude right upper lobe or left lower lobe pneumonia. Assessment & Plan - Diagnosis (1) Pneumonia Qualifiers: Pneumonia type: due to unspecified organism Laterality: bilateral Lung location: lower lobe of lung Qualified Code(s): J18.1 - Lobar pneumonia, unspecified organism Is this a current diagnosis for this admission?: Yes Plan: It appears she has had recurrent infections. I will check IgG, IgM, IgA today to see if there is any evidence of immunodeficiency process. If so, may consider IVIg, if available. Agree with antibiotics, as per primary team. (2) Anemia in chronic kidney disease Qualifiers: Chronic kidney disease stage: stage 3 (moderate) Qualified Code(s): N18.3 - Chronic kidney disease, stage 3 (moderate); D63.1 - Anemia in chronic kidney disease Is this a current diagnosis for this admission?: Yes Plan: She should benefit from Procrit injections. Her ferritin is normal. Although her sat is low, her TIBC is also low. This usually indicated anemia of chronic disease, not iron deficiency. I have explained to the patient that ferritin may be falsely elevated due to infection. We will be happy to repeat this testing after discharge and follow-up as needed. No indication for blood transfusion at this time. - Plan Summary Plan Summary: Dr. Frost will see her again on Saturday if she is still here. Otherwise, please call if needed. Thank you for this consultation.
[2019-04-11] MEDS: LEVOFLOXACIN 750 MG/D5W RTU 750 MG/150 ML RTUPB IV SCH (22:43)
[2019-04-11] MEDS: ZOLPIDEM TARTRATE 5 MG TABLET PO SCH (22:44)
[2019-04-11] MEDS: RAMIPRIL 2.5 MG CAPSULE PO SCH (22:44)
[2019-04-11] MEDS: CETIRIZINE 5 MG TABLET PO SCH (22:45)
[2019-04-11] MEDS ORDERED: DICYCLOMINE HCL 10 MG CAPSULE ONE (23:02)
[2019-04-12] MEDS: PANTOPRAZOLE SODIUM 20 MG TABLET.DR PO SCH (05:49)
[2019-04-12] MEDS: LEVOTHYROXINE SODIUM 0.1 MG TABLET PO SCH (05:49)
[2019-04-12] MEDS: OXYCODONE HCL IR 5 MG TABLET PO PRN ×3 (05:49→19:05)
[2019-04-12] MEDS: PRIMIDONE 50 MG TABLET PO SCH ×3 (05:49→23:14)
[2019-04-12] MEDS: LEVOTHYROXINE SODIUM 0.15 MG TABLET PO SCH (05:50)
[2019-04-12 06:37] LABS: ABSOLUTE EOSINOPHILS # (AUTO) 0.3 10^3/uL (0.0-0.6); ABSOLUTE LYMPHOCYTES (AUTO) 1.3 10^3/uL (0.5-4.7); ABSOLUTE MONOCYTES (AUTO) 0.5 10^3/uL (0.1-1.4); ABSOLUTE NEUT (AUTO) 2.4 10^3/uL (1.7-8.2); BASOPHILS % (AUTO) 0.6 % (0-2); EOSINOPHILS % (AUTO) 6.1 % (0-6); HEMATOCRIT 26.9 % (36.0-47.0); LYMPHOCYTES % (AUTO) 29.2 % (13-45); MEAN CORPUSCULAR HEMOGLOBIN 29.5 pg (27.0-33.4); MEAN CORPUSCULAR HGB CONC 33.3 g/dL (32.0-36.0); MEAN CORPUSCULAR VOLUME 89 fl (80-97); MONOCYTES % (AUTO) 10.3 % (3-13); PLATELET COUNT 205 10^3/uL (150-450); RED BLOOD COUNT 3.03 10^6/uL (3.72-5.28); RED CELL DISTRIBUTION WIDTH 15.4 % (11.5-14.0); SEGMENTED NEUTROPHILS % (AUTO) 53.8 % (42-78); TOTAL CELLS COUNTED % (AUTO) 100 %; WHITE BLOOD COUNT 4.4 10^3/uL (4.0-10.5)
[2019-04-12 06:53] LABS: ALBUMIN 2.9 g/dL (3.5-5.0); ALKALINE PHOSPHATASE 74 U/L (38-126); ANION GAP 6 (5-19); ASPARTATE AMINO TRANSFERASE 20 U/L (14-36); BILIRUBIN,DIRECT 0.2 mg/dL (0.0-0.4); BILIRUBIN,TOTAL 0.3 mg/dL (0.2-1.3); BLOOD UREA NITROGEN 23 mg/dL (7-20); CARBON DIOXIDE 33 mmol/L (22-30); CHLORIDE 97 mmol/L (98-107); GLUCOSE 89 mg/dL (75-110); POTASSIUM 3.5 mmol/L (3.6-5.0); TOTAL PROTEIN 5.8 g/dL (6.3-8.2)
[2019-04-12] MEDS: DONEPEZIL HCL 5 MG TABLET PO SCH (09:42)
[2019-04-12] MEDS: FLUOXETINE HCL 20 MG CAPSULE PO SCH (09:42)
[2019-04-12] MEDS: POTASSIUM CHLORIDE 10 MEQ CAPSULE.ER PO SCH (09:42)
[2019-04-12] MEDS: ATORVASTATIN CALCIUM 20 MG TABLET PO SCH (09:42)
[2019-04-12] MEDS: ALPRAZOLAM 0.5 MG TABLET PO SCH ×4 (09:42→23:14)
[2019-04-12] MEDS: DULOXETINE HCL 30 MG CAPSULE.DR PO SCH (09:42)
[2019-04-12] MEDS: FONDAPARINUX SODIUM INJ 7.5 MG/0.6 ML DISP.SYRIN SUBCUT SCH (09:43)
[2019-04-12] MEDS: PRENATAL VITAMIN W DHA CAPSULE PO SCH (09:43)
[2019-04-12] MEDS: ROPINIROLE HCL 0.25 MG TABLET PO SCH ×2 (09:43→17:35)
[2019-04-12] MEDS: FLUTICASONE NASAL SPRAY 50 MCG/SPRY 120 SPRAY/16 GM NASL SCH (09:44)
[2019-04-12] MEDS: TORSEMIDE 20 MG TABLET PO SCH (09:44)
[2019-04-12] MEDS: FLUTICASONE/UMECLIDIN/VILANTER 100-62.5-25 MCG/DOSE IH SCH (09:45)
[2019-04-12] MEDS: PROMETHAZINE HCL 25 MG TABLET PO PRN ×2 (09:53→19:02)
[2019-04-12] MEDS: DICYCLOMINE HCL 10 MG CAPSULE PO PRN (09:53)
[2019-04-12] MEDS ORDERED: ERGOCALCIFEROL (VITAMIN D2) 50000 UNIT (1.25 MG) CAPSULE PO SCH (10:00)
[2019-04-12] MEDS ORDERED: POTASSIUM CHLORIDE 10 MEQ CAPSULE.ER PO ONE (10:03)
--- NOTE | 2019-04-12 10:05 | PDOC PROGRESS REPORT ---
Subjective Progress Note for:: 04/12/19 Subjective:: Patient is feeling much better Patient seen by the powder hand suggest the Procrit injections\patient other than that denied any chest pain no short of breath Reason For Visit: PNEUMONIA,ACUTE ON CHRONIC RESPIRATORY FAILURE, Physical Exam Vital Signs: Temp Pulse Resp BP Pulse Ox 97.7 F 83 17 123/40 L 78 L 04/12/19 04:07 04/12/19 04:07 04/12/19 04:07 04/12/19 04:07 04/12/19 04:07 Intake & Output 04/11/19 04/12/19 04/13/19 06:59 06:59 06:59 Intake Total 964 1400 Output Total 1050 1850 Balance -86 -450 Weight 115.7 kg 115.6 kg General appearance: PRESENT: no acute distress, well-developed, well-nourished Head exam: PRESENT: atraumatic, normocephalic Eye exam: PRESENT: conjunctiva pink, EOMI, PERRLA. ABSENT: scleral icterus Ear exam: PRESENT: normal external ear exam Mouth exam: PRESENT: moist, tongue midline Neck exam: PRESENT: full ROM. ABSENT: carotid bruit, JVD, lymphadenopathy, thyromegaly Respiratory exam: PRESENT: clear to auscultation allison Cardiovascular exam: PRESENT: RRR. ABSENT: diastolic murmur, rubs, systolic murmur Pulses: PRESENT: normal dorsalis pedis pul, +2 pedal pulses bilateral Vascular exam: PRESENT: normal capillary refill GI/Abdominal exam: PRESENT: normal bowel sounds, soft. ABSENT: distended, guarding, mass, organolmegaly, rebound, tenderness Rectal exam: PRESENT: deferred Neurological exam: PRESENT: alert, awake, oriented to person, oriented to place, oriented to time, oriented to situation, CN II-XII grossly intact. ABSENT: motor sensory deficit Psychiatric exam: PRESENT: appropriate affect, normal mood. ABSENT: homicidal i deation, suicidal ideation Skin exam: PRESENT: dry, intact, warm. ABSENT: cyanosis, rash Results Laboratory Results: 04/12/19 06:13 04/12/19 06:13 04/11/19 04/11/19 04/12/19 05:13 05:13 06:13 WBC 4.4 RBC 3.03 L Hgb 9.0 L Hct 26.9 L MCV 89 MCH 29.5 MCHC 33.3 RDW 15.4 H Plt Count 205 Seg Neutrophils % 53.8 Retic Count (auto) 1.67 Sodium Potassium Chloride Carbon Dioxide Anion Gap BUN Creatinine Est GFR ( Amer) Glucose Calcium Iron 29.8 L TIBC 199 L % Saturation 15 Ferritin 140.00 Total Bilirubin AST Alkaline Phosphatase Total Protein Albumin Vitamin B12 841.0 Folate > 20.00 04/12/19 06:13 WBC RBC Hgb Hct MCV MCH MCHC RDW Plt Count Seg Neutrophils % Retic Count (auto) Sodium 136.1 L Potassium 3.5 L Chloride 97 L Carbon Dioxide 33 H Anion Gap 6 BUN 23 H Creatinine 1.58 H Est GFR ( Amer) 40 L Glucose 89 Calcium 8.0 L Iron TIBC % Saturation Ferritin Total Bilirubin 0.3 AST 20 Alkaline Phosphatase 74 Total Protein 5.8 L Albumin 2.9 L Vitamin B12 Folate 04/09/19 04/09/19 21:17 21:17 Creatine Kinase 51 CK-MB (CK-2) 0.59 Troponin I < 0.012 NT-Pro-B Natriuret Pep 220 Impressions: Chest X-Ray 04/09/19 14:01 IMPRESSION: Cannot exclude right upper lobe or left lower lobe pneumonia. Assessment & Plan - Diagnosis (1) COPD exacerbation Is this a current diagnosis for this admission?: Yes (2) Fluid retention Is this a current diagnosis for this admission?: Yes (3) Pneumonia Qualifiers: Pneumonia type: due to unspecified organism Laterality: bilateral Lung location: lower lobe of lung Qualified Code(s): J18.1 - Lobar pneumonia, unspecified organism Is this a current diagnosis for this admission?: Yes (4) Acute hypoxemic respiratory failure Is this a current diagnosis for this admission?: Yes (5) Anemia in chronic kidney disease Qualifiers: Chronic kidney disease stage: stage 3 (moderate) Qualified Code(s): N18.3 - Chronic kidney disease, stage 3 (moderate); D63.1 - Anemia in chronic kidney disease Is this a current diagnosis for this admission?: Yes (6) Chronic back pain Is this a current diagnosis for this admission?: Yes (7) Hypertension Qualifiers: Hypertension type: essential hypertension Qualified Code(s): I10 - Essential (primary) hypertension Is this a current diagnosis for this admission?: Yes - Time Time Spent with patient: 15-24 minutes Medications reviewed and adjusted accordingly: Yes Anticipated discharge: Other Within: Other - Plan Summary Plan Summary: Continues to current medications Physical therapy evaluations
[2019-04-12] MEDS ORDERED: DICYCLOMINE HCL 10 MG CAPSULE ONE (18:52)
[2019-04-12] MEDS: ZOLPIDEM TARTRATE 5 MG TABLET PO SCH (22:52)
[2019-04-12] MEDS: RAMIPRIL 2.5 MG CAPSULE PO SCH (23:13)
[2019-04-12] MEDS: LEVOFLOXACIN 750 MG/D5W RTU 750 MG/150 ML RTUPB IV SCH (23:13)
[2019-04-12] MEDS: CETIRIZINE 5 MG TABLET PO SCH (23:19)
[2019-04-13] MEDS: OXYCODONE HCL IR 5 MG TABLET PO PRN ×3 (01:06→18:03)
[2019-04-13] MEDS: PANTOPRAZOLE SODIUM 20 MG TABLET.DR PO SCH (05:55)
[2019-04-13] MEDS: LEVOTHYROXINE SODIUM 0.1 MG TABLET PO SCH (05:55)
[2019-04-13] MEDS: PRIMIDONE 50 MG TABLET PO SCH ×3 (05:55→21:50)
[2019-04-13] MEDS: LEVOTHYROXINE SODIUM 0.15 MG TABLET PO SCH (05:55)
[2019-04-13] MEDS: ATORVASTATIN CALCIUM 20 MG TABLET PO SCH (10:03)
[2019-04-13] MEDS: ALPRAZOLAM 0.5 MG TABLET PO SCH ×4 (10:03→21:49)
[2019-04-13] MEDS: DONEPEZIL HCL 5 MG TABLET PO SCH (10:03)
[2019-04-13] MEDS: PROMETHAZINE HCL 25 MG TABLET PO PRN ×2 (10:03→18:03)
[2019-04-13] MEDS: FLUTICASONE/UMECLIDIN/VILANTER 100-62.5-25 MCG/DOSE IH SCH (10:04)
[2019-04-13] MEDS: FONDAPARINUX SODIUM INJ 7.5 MG/0.6 ML DISP.SYRIN SUBCUT SCH (10:04)
[2019-04-13] MEDS: FLUTICASONE NASAL SPRAY 50 MCG/SPRY 120 SPRAY/16 GM NASL SCH (10:04)
[2019-04-13] MEDS: FLUOXETINE HCL 20 MG CAPSULE PO SCH (10:04)
[2019-04-13] MEDS: POTASSIUM CHLORIDE 10 MEQ CAPSULE.ER PO SCH (10:04)
[2019-04-13] MEDS: PRENATAL VITAMIN W DHA CAPSULE PO SCH (10:05)
[2019-04-13] MEDS: TORSEMIDE 20 MG TABLET PO SCH (10:05)
[2019-04-13] MEDS: DULOXETINE HCL 30 MG CAPSULE.DR PO SCH (10:05)
[2019-04-13] MEDS: ROPINIROLE HCL 0.25 MG TABLET PO SCH ×2 (10:05→18:03)
--- NOTE | 2019-04-13 10:21 | PDOC PROGRESS REPORT ---
Subjective Progress Note for:: 04/11/19 Subjective:: a little better Reason For Visit: PNEUMONIA,ACUTE ON CHRONIC RESPIRATORY FAILURE, Physical Exam Vital Signs: Temp Pulse Resp BP Pulse Ox 98.3 F 88 16 109/47 L 96 04/13/19 08:00 04/13/19 08:00 04/13/19 08:00 04/13/19 08:00 04/13/19 09:45 Intake & Output 04/12/19 04/13/19 04/14/19 06:59 06:59 06:59 Intake Total 1400 1490 Output Total 1850 950 Balance -450 540 Weight 115.6 kg 112.3 kg General appearance: PRESENT: no acute distress, cooperative, disheveled, morbidly obese Head exam: PRESENT: atraumatic, normocephalic Eye exam: PRESENT: conjunctiva pale, EOMI. ABSENT: nystagmus Mouth exam: PRESENT: dry mucosa, neck supple, tongue midline Neck exam: ABSENT: carotid bruit, full ROM, JVD, lymphadenopathy, meningismus, tenderness, thyromegaly, tracheal deviation, tracheostomy, other Respiratory exam: PRESENT: decreased breath sounds, prolonged expiratory phas, rhonchi, unlabored, wheezes - scattered. ABSENT: retraction, stridor Cardiovascular exam: PRESENT: RRR, +S1, +S2. ABSENT: tachycardia Pulses: PRESENT: normal radial pulses GI/Abdominal exam: PRESENT: soft. ABSENT: distended, guarding, mass, rebound, tenderness Extremities exam: ABSENT: calf tenderness, clubbing, full ROM, joint swelling, tenderness Musculoskeletal exam: ABSENT: deformity, dislocation Neurological exam: PRESENT: alert, awake Psychiatric exam: PRESENT: appropriate affect Skin exam: PRESENT: dry, warm Results Laboratory Results: 04/12/19 06:13 04/12/19 06:13 04/09/19 04/09/19 21:17 21:17 Creatine Kinase 51 CK-MB (CK-2) 0.59 Troponin I < 0.012 NT-Pro-B Natriuret Pep 220 Impressions: Chest X-Ray 04/09/19 14:01 IMPRESSION: Cannot exclude right upper lobe or left lower lobe pneumonia. Assessment & Plan - Diagnosis (1) Acute and chronic respiratory failure with hypoxia Is this a current diagnosis for this admission?: Yes Plan: continue current rx (2) COPD (chronic obstructive pulmonary disease) Qualifiers: Chronic bronchitis type: unspecified Is this a current diagnosis for this admission?: Yes Plan: Generic Name Dose Route Start Last Admin Trade Name Freq PRN Reason Stop Dose Admin Alprazolam 0.5 mg 04/09/19 22:00 04/09/19 23:15 Xanax 0.5 Mg Tablet PO 04/16/19 21:59 0.5 mg QID KEILY Albuterol 1 puff 04/09/19 20:40 Proair Hfa Inhalation Aerosol 8.5 Gm Mdi IH 05/09/19 20:39 QIDP PRN SOB Albuterol 2.5 mg 04/09/19 20:40 04/09/19 23:33 Ventolin 0.083% Neb 2.5 Mg/3 Ml Ampul NEB 05/09/19 20:39 2.5 mg RTQ6HP PRN WHEEZING Fluticasone/Vilanterol 1 inh 04/09/19 20:45 04/09/19 23:23 Trelegy 100-62.5-25 Mcg Ellipta 14 Dose/Dpi IH 05/09/19 20:44 1 inhaler DAILY [facility] Zolpidem Tartrate 5 mg 04/09/19 22:00 04/09/19 23:17 Ambien 5 Mg Tablet PO 04/16/19 21:59 Not Given QHS KEILY Fluticasone Propionate 1 spray 04/09/19 20:45 04/09/19 23:24 Flonase Nasal [place] 50 Mcg/[place] 16 Gm NASL 05/09/19 20:44 1 spray DAILY KEILY Levofloxacin/Dextrose 750 mg in 150 mls @ 100 mls/hr 04/09/19 22:00 04/10/19 06:15 Levaquin Rtu 750 Mg/D5w 150 Ml Premix IV 04/16/19 21:59 Infused QHS KEILY (3) Chronic kidney disease, stage 3 Is this a current diagnosis for this admission?: Yes Plan: per nephrology Labs- All tests 24 hr 04/09/19 04/10/19 15:16 06:19 BUN 26 H 28 H Creatinine 1.87 H 1.61 H (4) Dysphasia Is this a current diagnosis for this admission?: Yes Plan: see mod ba swallow 03/30/19 (5) Hypertension Qualifiers: Hypertension type: essential hypertension Qualified Code(s): I10 - Essential (primary) hypertension Is this a current diagnosis for this admission?: Yes Plan: stable at this time;echo 06/24/18 good EF> 70% no comment PHTN (6) Obesity Qualifiers: Obesity type: due to excess calories Serious obesity comorbidity presence: unspecified whether serious comorbidity present Body mass index: BMI 40.0-44.9 Is this a current diagnosis for this admission?: Yes Plan: consider dietary consult (7) Aspiration into airway Qualifiers: Encounter type: subsequent encounter Qualified Code(s): T17.908D - Unspecified foreign body in respiratory tract, part unspecified causing other injury, subsequent encounter Is this a current diagnosis for this admission?: Yes
--- NOTE | 2019-04-13 10:23 | PDOC PROGRESS REPORT ---
Subjective Progress Note for:: 04/13/19 Subjective:: a little better Reason For Visit: PNEUMONIA,ACUTE ON CHRONIC RESPIRATORY FAILURE, Physical Exam Vital Signs: Temp Pulse Resp BP Pulse Ox 98.3 F 88 16 109/47 L 96 04/13/19 08:00 04/13/19 08:00 04/13/19 08:00 04/13/19 08:00 04/13/19 09:45 Intake & Output 04/12/19 04/13/19 04/14/19 06:59 06:59 06:59 Intake Total 1400 1490 Output Total 1850 950 Balance -450 540 Weight 115.6 kg 112.3 kg General appearance: PRESENT: no acute distress, cooperative, disheveled, morbidly obese Head exam: PRESENT: atraumatic, normocephalic Eye exam: PRESENT: conjunctiva pale, EOMI. ABSENT: nystagmus Mouth exam: PRESENT: dry mucosa, neck supple, tongue midline Neck exam: ABSENT: carotid bruit, full ROM, JVD, lymphadenopathy, meningismus, tenderness, thyromegaly, tracheal deviation, tracheostomy, other Respiratory exam: PRESENT: decreased breath sounds, prolonged expiratory phas, rhonchi, unlabored, wheezes. ABSENT: retraction, stridor Cardiovascular exam: PRESENT: RRR, +S1, +S2. ABSENT: tachycardia Pulses: PRESENT: normal radial pulses GI/Abdominal exam: PRESENT: soft. ABSENT: distended, guarding, mass, rigid, tenderness Extremities exam: ABSENT: calf tenderness, clubbing, tenderness Musculoskeletal exam: ABSENT: deformity, dislocation Neurological exam: PRESENT: alert, awake Psychiatric exam: PRESENT: appropriate affect Skin exam: PRESENT: dry, warm Results Laboratory Results: 04/12/19 06:13 04/12/19 06:13 04/09/19 04/09/19 21:17 21:17 Creatine Kinase 51 CK-MB (CK-2) 0.59 Troponin I < 0.012 NT-Pro-B Natriuret Pep 220 Impressions: Chest X-Ray 04/09/19 14:01 IMPRESSION: Cannot exclude right upper lobe or left lower lobe pneumonia. Assessment & Plan - Diagnosis (1) Acute and chronic respiratory failure with hypoxia Is this a current diagnosis for this admission?: Yes Plan: continue current rx (2) COPD (chronic obstructive pulmonary disease) Qualifiers: Chronic bronchitis type: unspecified Is this a current diagnosis for this admission?: Yes Plan: Generic Name Dose Route Start Last Admin Trade Name Freq PRN Reason Stop Dose Admin Alprazolam 0.5 mg 04/09/19 22:00 04/09/19 23:15 Xanax 0.5 Mg Tablet PO 04/16/19 21:59 0.5 mg QID KEILY Albuterol 1 puff 04/09/19 20:40 Proair Hfa Inhalation Aerosol 8.5 Gm Mdi IH 05/09/19 20:39 QIDP PRN SOB Albuterol 2.5 mg 04/09/19 20:40 04/09/19 23:33 Ventolin 0.083% Neb 2.5 Mg/3 Ml Ampul NEB 05/09/19 20:39 2.5 mg RTQ6HP PRN WHEEZING Fluticasone/Vilanterol 1 inh 04/09/19 20:45 04/09/19 23:23 Trelegy 100-62.5-25 Mcg Ellipta 14 Dose/Dpi IH 05/09/19 20:44 1 inhaler DAILY KEILY Zolpidem Tartrate 5 mg 04/09/19 22:00 04/09/19 23:17 Ambien 5 Mg Tablet PO 04/16/19 21:59 Not Given QHS KEILY Fluticasone Propionate 1 spray 04/09/19 20:45 04/09/19 23:24 Flonase Nasal [place] 50 Mcg/[place] 16 Gm NASL 05/09/19 20:44 1 spray DAILY KEILY Levofloxacin/Dextrose 750 mg in 150 mls @ 100 mls/hr 04/09/19 22:00 04/10/19 06:15 Levaquin Rtu 750 Mg/D5w 150 Ml Premix IV 04/16/19 21:59 Infused QHS [facility] (3) Chronic kidney disease, stage 3 Is this a current diagnosis for this admission?: Yes Plan: per nephrology Labs- All tests 24 hr 04/09/19 04/10/19 15:16 06:19 BUN 26 H 28 H Creatinine 1.87 H 1.61 H (4) Dysphasia Is this a current diagnosis for this admission?: Yes Plan: see mod ba swallow 03/30/19 (5) Hypertension Qualifiers: Hypertension type: essential hypertension Qualified Code(s): I10 - Essential (primary) hypertension Is this a current diagnosis for this admission?: Yes Plan: stable at this time;echo 06/24/18 good EF> 70% no comment PHTN (6) Obesity Qualifiers: Obesity type: due to excess calories Serious obesity comorbidity presence: unspecified whether serious comorbidity present Body mass index: BMI 40.0-44.9 Is this a current diagnosis for this admission?: Yes Plan: consider dietary consult (7) Aspiration into airway Qualifiers: Encounter type: subsequent encounter Qualified Code(s): T17.908D - Unspecified foreign body in respiratory tract, part unspecified causing other injury, subsequent encounter Is this a current diagnosis for this admission?: Yes Plan: please mod ba swallow 03/30/19
[2019-04-13] MEDS: DICYCLOMINE HCL 10 MG CAPSULE PO PRN ×3 (11:31→21:59)
[2019-04-13 12:36] LABS: IMMUNOGLOBULIN A 272 mg/dL (87-352); IMMUNOGLOBULIN G 919 mg/dL (700-1600)
[2019-04-13 13:00] LABS: IMMUNOGLOBULIN M 120 mg/dL (26-217)
[2019-04-13] MEDS: NORMAL SALINE 250 ML with FUROSEMIDE 250 MG IV PRN ×2 (18:37)
[2019-04-13] MEDS: LEVOFLOXACIN 750 MG TABLET PO SCH (21:49)
[2019-04-13] MEDS: CETIRIZINE 5 MG TABLET PO SCH (21:50)
[2019-04-13] MEDS: RAMIPRIL 2.5 MG CAPSULE PO SCH (21:50)
[2019-04-13] MEDS: ESZOPICLONE 3 MG PO SCH (21:59)
--- NOTE | 2019-04-13 22:06 | PDOC PROGRESS REPORT ---
Subjective Progress Note for:: 04/13/19 Subjective:: Patient seen by the bedside, she has lot of fluid retention Reason For Visit: PNEUMONIA,ACUTE ON CHRONIC RESPIRATORY FAILURE, Physical Exam Vital Signs: Temp Pulse Resp BP Pulse Ox 98.8 F 89 17 105/47 L 100 04/13/19 16:00 04/13/19 16:00 04/13/19 16:00 04/13/19 16:00 04/13/19 16:00 Intake & Output 04/12/19 04/13/19 04/14/19 06:59 06:59 06:59 Intake Total 1400 1490 760 Output Total 1850 950 850 Balance -450 540 -90 Weight 115.6 kg 112.3 kg General appearance: PRESENT: no acute distress Eye exam: PRESENT: PERRLA Respiratory exam: PRESENT: clear to auscultation allison Cardiovascular exam: PRESENT: +S1, +S2 GI/Abdominal exam: PRESENT: soft Neurological exam: PRESENT: alert Results Laboratory Results: 04/12/19 06:13 04/12/19 06:13 04/09/19 04/09/19 21:17 21:17 Creatine Kinase 51 CK-MB (CK-2) 0.59 Troponin I < 0.012 NT-Pro-B Natriuret Pep 220 Impressions: Chest X-Ray 04/09/19 14:01 IMPRESSION: Cannot exclude right upper lobe or left lower lobe pneumonia. Assessment & Plan - Diagnosis (1) Pneumonia Qualifiers: Pneumonia type: due to unspecified organism Laterality: unspecified laterality Lung location: unspecified part of lung Qualified Code(s): J18.9 - Pneumonia, unspecified organism Is this a current diagnosis for this admission?: Yes (2) Chronic respiratory failure with hypoxia and hypercapnia Is this a current diagnosis for this admission?: Yes (3) Fluid retention Is this a current diagnosis for this admission?: Yes Plan: Start Lasix infusion to achieve dry weight (4) COPD exacerbation Is this a current diagnosis for this admission?: Yes
[2019-04-14] MEDS: PROMETHAZINE HCL 25 MG TABLET PO PRN ×3 (01:46→18:07)
[2019-04-14] MEDS: OXYCODONE HCL IR 5 MG TABLET PO PRN ×3 (01:46→20:05)
[2019-04-14] MEDS: PRIMIDONE 50 MG TABLET PO SCH ×3 (06:39→21:38)
[2019-04-14] MEDS: LEVOTHYROXINE SODIUM 0.15 MG TABLET PO SCH (06:42)
[2019-04-14] MEDS: PANTOPRAZOLE SODIUM 20 MG TABLET.DR PO SCH (06:42)
[2019-04-14] MEDS: LEVOTHYROXINE SODIUM 0.1 MG TABLET PO SCH (06:42)
[2019-04-14] MEDS: DICYCLOMINE HCL 10 MG CAPSULE PO PRN (08:05)
--- NOTE | 2019-04-14 08:07 | PDOC PROGRESS REPORT ---
Subjective Progress Note for:: 04/14/19 Subjective:: Patient without new complaints today. Anxious to feel better and go home. Reason For Visit: PNEUMONIA,ACUTE ON CHRONIC RESPIRATORY FAILURE, Physical Exam Vital Signs: Temp Pulse Resp BP Pulse Ox 98.3 F 90 17 100/63 99 04/13/19 20:33 04/14/19 07:00 04/13/19 16:00 04/13/19 20:33 04/13/19 20:33 Intake & Output 04/13/19 04/14/19 04/15/19 06:59 06:59 06:59 Intake Total 1490 760 Output Total 950 1250 Balance 540 -490 Weight 112.3 kg 109.7 kg General appearance: PRESENT: no acute distress Head exam: PRESENT: normocephalic Respiratory exam: PRESENT: unlabored Neurological exam: PRESENT: alert, awake Psychiatric exam: PRESENT: appropriate affect Skin exam: PRESENT: normal color Results Laboratory Results: 04/12/19 06:13 04/12/19 06:13 04/09/19 04/09/19 21:17 21:17 Creatine Kinase 51 CK-MB (CK-2) 0.59 Troponin I < 0.012 NT-Pro-B Natriuret Pep 220 Impressions: Chest X-Ray 04/09/19 14:01 IMPRESSION: Cannot exclude right upper lobe or left lower lobe pneumonia. Assessment & Plan - Diagnosis (1) Pneumonia Qualifiers: Pneumonia type: due to unspecified organism Laterality: bilateral Lung location: lower lobe of lung Qualified Code(s): J18.1 - Lobar pneumonia, unspecified organism Is this a current diagnosis for this admission?: Yes Plan: Immunoglobulin levels are normal. No indication for immunodeficiency as cause of recurrent infections. (2) Anemia in chronic kidney disease Qualifiers: Chronic kidney disease stage: stage 3 (moderate) Qualified Code(s): N18.3 - Chronic kidney disease, stage 3 (moderate); D63.1 - Anemia in chronic kidney disease Is this a current diagnosis for this admission?: Yes Plan: Currently stable. Her iron, B12, Folate are normal. Will continue to follow as outpatient. Consider Procrit injections. - Plan Summary Plan Summary: I will sign off and follow her as outpatient. Please call if needed.
[2019-04-14] MEDS: POTASSIUM CHLORIDE 10 MEQ CAPSULE.ER PO SCH (10:06)
[2019-04-14] MEDS: FLUOXETINE HCL 20 MG CAPSULE PO SCH (10:07)
[2019-04-14] MEDS: ATORVASTATIN CALCIUM 20 MG TABLET PO SCH (10:07)
[2019-04-14] MEDS: DULOXETINE HCL 30 MG CAPSULE.DR PO SCH (10:07)
[2019-04-14] MEDS: ALPRAZOLAM 0.5 MG TABLET PO SCH ×4 (10:07→21:38)
[2019-04-14] MEDS: DONEPEZIL HCL 5 MG TABLET PO SCH (10:07)
[2019-04-14] MEDS: TORSEMIDE 20 MG TABLET PO SCH (10:09)
[2019-04-14] MEDS: FONDAPARINUX SODIUM INJ 7.5 MG/0.6 ML DISP.SYRIN SUBCUT SCH (10:09)
[2019-04-14] MEDS: FLUTICASONE/UMECLIDIN/VILANTER 100-62.5-25 MCG/DOSE IH SCH (10:10)
[2019-04-14] MEDS: ROPINIROLE HCL 0.25 MG TABLET PO SCH ×2 (10:10→18:05)
[2019-04-14] MEDS: FLUTICASONE NASAL SPRAY 50 MCG/SPRY 120 SPRAY/16 GM NASL SCH (10:10)
[2019-04-14] MEDS: PRENATAL VITAMIN W DHA CAPSULE PO SCH (10:10)
--- NOTE | 2019-04-14 11:25 | PDOC PROGRESS REPORT ---
Subjective Progress Note for:: 04/14/19 Subjective:: Frustrated with therapeutic plan wants to go home Reason For Visit: PNEUMONIA,ACUTE ON CHRONIC RESPIRATORY FAILURE, Physical Exam Vital Signs: Temp Pulse Resp BP Pulse Ox 98.4 F 90 17 89/45 L 100 04/14/19 03:18 04/14/19 07:00 04/14/19 03:18 04/14/19 03:18 04/14/19 03:18 Intake & Output 04/13/19 04/14/19 04/15/19 06:59 06:59 06:59 Intake Total 1490 760 Output Total 950 1250 Balance 540 -490 Weight 112.3 kg 109.7 kg General appearance: PRESENT: no acute distress, cooperative, disheveled, morbidly obese Head exam: PRESENT: atraumatic, normocephalic Eye exam: PRESENT: conjunctiva pale, EOMI. ABSENT: nystagmus, periorbital swelling, scleral icterus Mouth exam: PRESENT: dry mucosa, neck supple, tongue midline Neck exam: ABSENT: carotid bruit, full ROM, JVD, lymphadenopathy, meningismus, tenderness, thyromegaly, tracheal deviation, tracheostomy, other Respiratory exam: PRESENT: decreased breath sounds, prolonged expiratory phas, rhonchi, symmetrical, unlabored. ABSENT: rales, retraction, stridor, tachypnea, wheezes Cardiovascular exam: PRESENT: RRR, +S1, +S2. ABSENT: tachycardia Pulses: PRESENT: normal radial pulses GI/Abdominal exam: PRESENT: soft. ABSENT: distended, guarding, mass, rebound, tenderness Extremities exam: ABSENT: calf tenderness, clubbing, joint swelling, tenderness Musculoskeletal exam: ABSENT: deformity, dislocation Neurological exam: PRESENT: alert, awake Psychiatric exam: PRESENT: depressed Skin exam: PRESENT: dry, warm Results Laboratory Results: 04/12/19 06:13 04/12/19 06:13 04/09/19 04/09/19 21:17 21:17 Creatine Kinase 51 CK-MB (CK-2) 0.59 Troponin I < 0.012 NT-Pro-B Natriuret Pep 220 Impressions: Chest X-Ray 04/09/19 14:01 IMPRESSION: Cannot exclude right upper lobe or left lower lobe pneumonia. Assessment & Plan - Diagnosis (1) Acute and chronic respiratory failure with hypoxia Is this a current diagnosis for this admission?: Yes Plan: Continues to improve very near baseline (2) COPD (chronic obstructive pulmonary disease) Qualifiers: Chronic bronchitis type: unspecified Is this a current diagnosis for this admission?: Yes Plan: Generic Name Dose Route Start Last Admin Trade Name Freq PRN Reason Stop Dose Admin Alprazolam 0.5 mg 04/09/19 22:00 04/09/19 23:15 Xanax 0.5 Mg Tablet PO 04/16/19 21:59 0.5 mg QID KEILY Albuterol 1 puff 04/09/19 20:40 Proair Hfa Inhalation Aerosol 8.5 Gm Mdi IH 05/09/19 20:39 QIDP PRN SOB Albuterol 2.5 mg 04/09/19 20:40 04/09/19 23:33 Ventolin 0.083% Neb 2.5 Mg/3 Ml Ampul NEB 05/09/19 20:39 2.5 mg RTQ6HP PRN WHEEZING Fluticasone/Vilanterol 1 inh 04/09/19 20:45 04/09/19 23:23 Trelegy 100-62.5-25 Mcg Ellipta 14 Dose/Dpi IH 05/09/19 20:44 1 inhaler DAILY [facility] Zolpidem Tartrate 5 mg 04/09/19 22:00 04/09/19 23:17 Ambien 5 Mg Tablet PO 04/16/19 21:59 Not Given QHS KEILY Fluticasone Propionate 1 spray 04/09/19 20:45 04/09/19 23:24 Flonase Nasal [place] 50 Mcg/[place] 16 Gm NASL 05/09/19 20:44 1 spray DAILY KEILY Levofloxacin/Dextrose 750 mg in 150 mls @ 100 mls/hr 04/09/19 22:00 04/10/19 06:15 Levaquin Rtu 750 Mg/D5w 150 Ml Premix IV 04/16/19 21:59 Infused QHS [facility] (3) Chronic kidney disease, stage 3 Is this a current diagnosis for this admission?: Yes Plan: per nephrology Labs- All tests 24 hr 04/09/19 04/10/19 15:16 06:19 BUN 26 H 28 H Creatinine 1.87 H 1.61 H (4) Dysphasia Is this a current diagnosis for this admission?: Yes Plan: see mod ba swallow 03/30/19 (5) Hypertension Qualifiers: Hypertension type: essential hypertension Qualified Code(s): I10 - Essential (primary) hypertension Is this a current diagnosis for this admission?: Yes Plan: stable at this time;echo 06/24/18 good EF> 70% no comment PHTN (6) Obesity Qualifiers: Obesity type: due to excess calories Serious obesity comorbidity presence: unspecified whether serious comorbidity present Body mass index: BMI 40.0-44.9 Is this a current diagnosis for this admission?: Yes Plan: consider dietary consult (7) Aspiration into airway Qualifiers: Encounter type: subsequent encounter Qualified Code(s): T17.908D - Unspecified foreign body in respiratory tract, part unspecified causing other injury, subsequent encounter Is this a current diagnosis for this admission?: Yes Plan: please mod ba swallow 03/30/19
[2019-04-14] MEDS: NORMAL SALINE 250 ML with FUROSEMIDE 250 MG IV PRN ×2 (18:03)
[2019-04-14] MEDS: PHARMACY COMMUNICATION ORDER MC SCH (18:05)
--- NOTE | 2019-04-14 20:55 | PDOC PROGRESS REPORT ---
Subjective Progress Note for:: 04/14/19 Subjective:: Patient complaining of diarrhea, nausea Reason For Visit: PNEUMONIA,ACUTE ON CHRONIC RESPIRATORY FAILURE, Physical Exam Vital Signs: Temp Pulse Resp BP Pulse Ox 97.9 F 92 18 105/76 96 04/14/19 11:59 04/14/19 19:00 04/14/19 11:59 04/14/19 11:59 04/14/19 11:59 Intake & Output 04/13/19 04/14/19 04/15/19 06:59 06:59 06:59 Intake Total 4673 542 7729 Output Total 950 1250 850 Balance 540 -490 355 Weight 112.3 kg 109.7 kg General appearance: PRESENT: no acute distress Eye exam: PRESENT: PERRLA Respiratory exam: PRESENT: clear to auscultation allison Cardiovascular exam: PRESENT: +S1, +S2 GI/Abdominal exam: PRESENT: soft Neurological exam: PRESENT: alert Results Laboratory Results: 04/12/19 06:13 04/12/19 06:13 04/09/19 18:03 Blood Blood Culture - Final NO GROWTH IN 5 DAYS 04/09/19 15:16 Blood Blood Culture - Final NO GROWTH IN 5 DAYS 04/09/19 04/09/19 21:17 21:17 Creatine Kinase 51 CK-MB (CK-2) 0.59 Troponin I < 0.012 NT-Pro-B Natriuret Pep 220 Impressions: Chest X-Ray 04/09/19 14:01 IMPRESSION: Cannot exclude right upper lobe or left lower lobe pneumonia. Assessment & Plan - Diagnosis (1) Pneumonia Qualifiers: Pneumonia type: due to unspecified organism Laterality: unspecified laterality Lung location: unspecified part of lung Qualified Code(s): J18.9 - Pneumonia, unspecified organism Is this a current diagnosis for this admission?: Yes (2) Chronic respiratory failure with hypoxia and hypercapnia Is this a current diagnosis for this admission?: Yes (3) Fluid retention Is this a current diagnosis for this admission?: Yes (4) COPD exacerbation Is this a current diagnosis for this admission?: Yes (5) Diarrhea Qualifiers: Diarrhea type: unspecified type Qualified Code(s): R19.7 - Diarrhea, unspecified Is this a current diagnosis for this admission?: Yes Plan: Send stool for C. difficile toxin, start empiric p.o. vancomycin
[2019-04-14] MEDS: RAMIPRIL 2.5 MG CAPSULE PO SCH (21:38)
[2019-04-14] MEDS: CETIRIZINE 5 MG TABLET PO SCH (21:38)
[2019-04-14] MEDS: VANCOMYCIN HCL INJ 500 MG VIAL PO SCH (21:38)
[2019-04-14] MEDS: LEVOFLOXACIN 750 MG TABLET PO SCH (21:38)
[2019-04-14] MEDS: ESZOPICLONE 3 MG PO SCH (21:39)
[2019-04-14 21:58] LABS: ABSOLUTE EOSINOPHILS # (AUTO) 0.2 10^3/uL (0.0-0.6); ABSOLUTE LYMPHOCYTES (AUTO) 1.7 10^3/uL (0.5-4.7); ABSOLUTE MONOCYTES (AUTO) 0.6 10^3/uL (0.1-1.4); ABSOLUTE NEUT (AUTO) 2.5 10^3/uL (1.7-8.2); BASOPHILS % (AUTO) 0.4 % (0-2); EOSINOPHILS % (AUTO) 3.9 % (0-6); HEMATOCRIT 28.9 % (36.0-47.0); HEMOGLOBIN 9.9 g/dL (12.0-15.5); LYMPHOCYTES % (AUTO) 34.3 % (13-45); MEAN CORPUSCULAR HGB CONC 34.2 g/dL (32.0-36.0); MEAN CORPUSCULAR VOLUME 88 fl (80-97); MONOCYTES % (AUTO) 12.2 % (3-13); PLATELET COUNT 200 10^3/uL (150-450); RED BLOOD COUNT 3.29 10^6/uL (3.72-5.28); RED CELL DISTRIBUTION WIDTH 15.5 % (11.5-14.0); SEGMENTED NEUTROPHILS % (AUTO) 49.2 % (42-78); TOTAL CELLS COUNTED % (AUTO) 100 %; WHITE BLOOD COUNT 5.1 10^3/uL (4.0-10.5)
[2019-04-14 22:18] LABS: ALKALINE PHOSPHATASE 72 U/L (38-126); ANION GAP 8 (5-19); ASPARTATE AMINO TRANSFERASE 27 U/L (14-36); BILIRUBIN,DIRECT 0.3 mg/dL (0.0-0.4); BILIRUBIN,TOTAL 0.3 mg/dL (0.2-1.3); BLOOD UREA NITROGEN 15 mg/dL (7-20); CALCIUM 7.7 mg/dL (8.4-10.2); CARBON DIOXIDE 32 mmol/L (22-30); CHLORIDE 98 mmol/L (98-107); GLUCOSE 94 mg/dL (75-110); POTASSIUM 3.1 mmol/L (3.6-5.0); TOTAL PROTEIN 5.8 g/dL (6.3-8.2)
[2019-04-15] MEDS: PROMETHAZINE HCL 25 MG TABLET PO PRN ×3 (02:25→22:02)
[2019-04-15] MEDS: OXYCODONE HCL IR 5 MG TABLET PO PRN ×3 (02:25→16:39)
[2019-04-15] MEDS: LEVOTHYROXINE SODIUM 0.1 MG TABLET PO SCH (05:56)
[2019-04-15] MEDS: VANCOMYCIN HCL INJ 500 MG VIAL PO SCH ×2 (05:56→13:14)
[2019-04-15] MEDS: LEVOTHYROXINE SODIUM 0.15 MG TABLET PO SCH (05:56)
[2019-04-15] MEDS: PANTOPRAZOLE SODIUM 20 MG TABLET.DR PO SCH (05:56)
[2019-04-15] MEDS: PRIMIDONE 50 MG TABLET PO SCH ×3 (05:57→22:02)
[2019-04-15] MEDS: DICYCLOMINE HCL 10 MG CAPSULE PO PRN ×2 (07:49→20:13)
[2019-04-15 08:07] LABS: ABSOLUTE EOSINOPHILS # (AUTO) 0.2 10^3/uL (0.0-0.6); ABSOLUTE LYMPHOCYTES (AUTO) 1.4 10^3/uL (0.5-4.7); ABSOLUTE MONOCYTES (AUTO) 0.5 10^3/uL (0.1-1.4); ABSOLUTE NEUT (AUTO) 2.8 10^3/uL (1.7-8.2); BASOPHILS % (AUTO) 0.5 % (0-2); EOSINOPHILS % (AUTO) 4.1 % (0-6); HEMATOCRIT 29.1 % (36.0-47.0); HEMOGLOBIN 9.8 g/dL (12.0-15.5); LYMPHOCYTES % (AUTO) 28.7 % (13-45); MEAN CORPUSCULAR HEMOGLOBIN 29.7 pg (27.0-33.4); MEAN CORPUSCULAR HGB CONC 33.6 g/dL (32.0-36.0); MEAN CORPUSCULAR VOLUME 88 fl (80-97); MONOCYTES % (AUTO) 10.5 % (3-13); PLATELET COUNT 214 10^3/uL (150-450); RED BLOOD COUNT 3.29 10^6/uL (3.72-5.28); RED CELL DISTRIBUTION WIDTH 15.3 % (11.5-14.0); SEGMENTED NEUTROPHILS % (AUTO) 56.2 % (42-78); TOTAL CELLS COUNTED % (AUTO) 100 %
[2019-04-15 08:17] LABS: ALBUMIN 3.2 g/dL (3.5-5.0); ALKALINE PHOSPHATASE 70 U/L (38-126); ANION GAP 8 (5-19); ASPARTATE AMINO TRANSFERASE 25 U/L (14-36); BILIRUBIN,DIRECT 0.2 mg/dL (0.0-0.4); BILIRUBIN,TOTAL 0.3 mg/dL (0.2-1.3); BLOOD UREA NITROGEN 15 mg/dL (7-20); CALCIUM 7.5 mg/dL (8.4-10.2); CARBON DIOXIDE 33 mmol/L (22-30); CHLORIDE 97 mmol/L (98-107); GLUCOSE 107 mg/dL (75-110); POTASSIUM 3.3 mmol/L (3.6-5.0); TOTAL PROTEIN 6.1 g/dL (6.3-8.2)
[2019-04-15 09:38] LABS: C DIFFICILE GDH NEGATIVE (NEGATIVE)
[2019-04-15] MEDS: FLUOXETINE HCL 20 MG CAPSULE PO SCH (09:52)
[2019-04-15] MEDS: ALPRAZOLAM 0.5 MG TABLET PO SCH ×4 (09:53→22:02)
[2019-04-15] MEDS: DONEPEZIL HCL 5 MG TABLET PO SCH (09:53)
[2019-04-15] MEDS: FONDAPARINUX SODIUM INJ 7.5 MG/0.6 ML DISP.SYRIN SUBCUT SCH (09:53)
[2019-04-15] MEDS: DULOXETINE HCL 30 MG CAPSULE.DR PO SCH (09:53)
[2019-04-15] MEDS: FLUTICASONE NASAL SPRAY 50 MCG/SPRY 120 SPRAY/16 GM NASL SCH (09:53)
[2019-04-15] MEDS: ATORVASTATIN CALCIUM 20 MG TABLET PO SCH (09:53)
[2019-04-15] MEDS: FLUTICASONE/UMECLIDIN/VILANTER 100-62.5-25 MCG/DOSE IH SCH (09:53)
[2019-04-15] MEDS: POTASSIUM CHLORIDE 10 MEQ CAPSULE.ER PO SCH (09:53)
[2019-04-15] MEDS: TORSEMIDE 20 MG TABLET PO SCH (09:54)
[2019-04-15] MEDS: PRENATAL VITAMIN W DHA CAPSULE PO SCH (09:54)
[2019-04-15] MEDS: ROPINIROLE HCL 0.25 MG TABLET PO SCH ×2 (09:54→17:32)
[2019-04-15] MEDS: PHARMACY COMMUNICATION ORDER MC SCH (17:28)
--- NOTE | 2019-04-15 21:06 | PDOC PROGRESS REPORT ---
Subjective Progress Note for:: 04/15/19 Subjective:: Patient seen by the bedside, where diuresed, she continues to request Rodriguez catheter placement Reason For Visit: PNEUMONIA,ACUTE ON CHRONIC RESPIRATORY FAILURE, Physical Exam Vital Signs: Temp Pulse Resp BP Pulse Ox 98.3 F 98 13 108/57 L 99 04/15/19 12:31 04/15/19 14:00 04/15/19 12:31 04/15/19 12:31 04/15/19 12:31 Intake & Output 04/14/19 04/15/19 04/16/19 06:59 06:59 06:59 Intake Total 760 1805 876 Output Total 1250 850 Balance -490 955 876 Weight 109.7 kg 111.7 kg General appearance: PRESENT: no acute distress Eye exam: PRESENT: PERRLA Respiratory exam: PRESENT: clear to auscultation allison Cardiovascular exam: PRESENT: +S1, +S2 GI/Abdominal exam: PRESENT: soft Neurological exam: PRESENT: alert Results Laboratory Results: 04/15/19 07:13 04/15/19 07:13 04/14/19 04/14/19 04/15/19 21:38 21:38 07:13 WBC 5.1 RBC 3.29 L Hgb 9.9 L Hct 28.9 L MCV 88 MCH 30.0 MCHC 34.2 RDW 15.5 H Plt Count 200 Seg Neutrophils % 49.2 Sodium 138.0 138.2 Potassium 3.1 L 3.3 L Chloride 98 97 L Carbon Dioxide 32 H 33 H Anion Gap 8 8 BUN 15 15 Creatinine 1.52 H 1.63 H Est GFR ( Amer) 42 L 38 L Glucose 94 107 Calcium 7.7 L 7.5 L Total Bilirubin 0.3 0.3 AST 27 25 Alkaline Phosphatase 72 70 Total Protein 5.8 L 6.1 L Albumin 3.0 L 3.2 L 04/15/19 07:13 WBC 5.0 RBC 3.29 L Hgb 9.8 L Hct 29.1 L MCV 88 MCH 29.7 MCHC 33.6 RDW 15.3 H Plt Count 214 Seg Neutrophils % 56.2 Sodium Potassium Chloride Carbon Dioxide Anion Gap BUN Creatinine Est GFR ( Amer) Glucose Calcium Total Bilirubin AST Alkaline Phosphatase Total Protein Albumin 04/09/19 18:03 Blood Blood Culture - Final NO GROWTH IN 5 DAYS 04/09/19 04/09/19 21:17 21:17 Creatine Kinase 51 CK-MB (CK-2) 0.59 Troponin I < 0.012 NT-Pro-B Natriuret Pep 220 Impressions: Chest X-Ray 04/09/19 14:01 IMPRESSION: Cannot exclude right upper lobe or left lower lobe pneumonia. Assessment & Plan - Diagnosis (1) Pneumonia Qualifiers: Pneumonia type: due to unspecified organism Laterality: unspecified laterality Lung location: unspecified part of lung Qualified Code(s): J18.9 - Pneumonia, unspecified organism Is this a current diagnosis for this admission?: Yes (2) Chronic respiratory failure with hypoxia and hypercapnia Is this a current diagnosis for this admission?: Yes (3) Fluid retention Is this a current diagnosis for this admission?: Yes (4) COPD exacerbation Is this a current diagnosis for this admission?: Yes (5) Diarrhea Qualifiers: Diarrhea type: unspecified type Qualified Code(s): R19.7 - Diarrhea, unspecified Is this a current diagnosis for this admission?: Yes
[2019-04-15] MEDS: RAMIPRIL 2.5 MG CAPSULE PO SCH (22:02)
[2019-04-15] MEDS: LEVOFLOXACIN 750 MG TABLET PO SCH (22:02)
[2019-04-15] MEDS: ESZOPICLONE 3 MG PO SCH (22:03)
[2019-04-15] MEDS: CETIRIZINE 5 MG TABLET PO SCH (22:03)
[2019-04-16] MEDS: PROMETHAZINE HCL 25 MG TABLET PO PRN ×3 (06:01→16:50)
[2019-04-16] MEDS: LEVOTHYROXINE SODIUM 0.1 MG TABLET PO SCH (06:02)
[2019-04-16] MEDS: LEVOTHYROXINE SODIUM 0.15 MG TABLET PO SCH (06:02)
[2019-04-16] MEDS: OXYCODONE HCL IR 5 MG TABLET PO PRN ×2 (06:02→14:05)
[2019-04-16] MEDS: PRIMIDONE 50 MG TABLET PO SCH ×3 (06:03→21:21)
[2019-04-16] MEDS: PANTOPRAZOLE SODIUM 20 MG TABLET.DR PO SCH (06:04)
[2019-04-16] MEDS: DICYCLOMINE HCL 10 MG CAPSULE PO PRN ×2 (06:05→21:21)
[2019-04-16] MEDS: POTASSIUM CHLORIDE 10 MEQ CAPSULE.ER PO SCH (09:48)
[2019-04-16] MEDS: DULOXETINE HCL 30 MG CAPSULE.DR PO SCH (09:49)
[2019-04-16] MEDS: ROPINIROLE HCL 0.25 MG TABLET PO SCH ×2 (09:49→17:56)
[2019-04-16] MEDS: PRENATAL VITAMIN W DHA CAPSULE PO SCH (09:49)
[2019-04-16] MEDS: DONEPEZIL HCL 5 MG TABLET PO SCH (09:49)
[2019-04-16] MEDS: ATORVASTATIN CALCIUM 20 MG TABLET PO SCH (09:49)
[2019-04-16] MEDS: ALPRAZOLAM 0.5 MG TABLET PO SCH ×3 (09:49→17:55)
[2019-04-16] MEDS: FLUOXETINE HCL 20 MG CAPSULE PO SCH (09:49)
[2019-04-16] MEDS: TORSEMIDE 20 MG TABLET PO SCH (09:49)
[2019-04-16] MEDS: FONDAPARINUX SODIUM INJ 7.5 MG/0.6 ML DISP.SYRIN SUBCUT SCH (09:49)
[2019-04-16] MEDS: FLUTICASONE/UMECLIDIN/VILANTER 100-62.5-25 MCG/DOSE IH SCH (09:50)
[2019-04-16] MEDS: FLUTICASONE NASAL SPRAY 50 MCG/SPRY 120 SPRAY/16 GM NASL SCH (09:50)
[2019-04-16] MEDS: ONDANSETRON HCL 8 MG TABLET PO PRN ×3 (13:30→21:25)
[2019-04-16] MEDS: PHARMACY COMMUNICATION ORDER MC SCH (17:56)
--- NOTE | 2019-04-16 20:19 | PDOC DISCHARGE SUMMARY ---
Impression - Admit/DC Date/PCP Admission Date/Primary Care Provider: 04/09/19 17:32 MARK HAILE MD Discharge Date: 04/16/19 - Discharge Diagnosis (1) Pneumonia Is this a current diagnosis for this admission?: Yes (2) Chronic respiratory failure with hypoxia and hypercapnia Is this a current diagnosis for this admission?: Yes (3) Fluid retention Is this a current diagnosis for this admission?: Yes (4) COPD exacerbation Is this a current diagnosis for this admission?: Yes (5) Diarrhea Is this a current diagnosis for this admission?: Yes - Additional Information Discharge Diet: Regular Referrals: JIN KAUFFMAN MD [ACTIVE STAFF] - 04/27/19 9:30 am Home Medications: Albuterol Sulfate [Proair HFA Inhalation Aerosol 8.5 gm MDI] 1 puff IH QIDP PRN 04/09/19 Albuterol Sulfate [Ventolin 0.083% Neb 2.5 mg/3 mL Ampul] 1 vial NEB RTQ6HP PRN 04/09/19 Alprazolam [Xanax 0.5 mg Tablet] 0.5 mg PO QID 04/09/19 Atorvastatin Calcium [Lipitor 20 mg Tablet] 20 mg PO DAILY 04/09/19 Azelastine 0.1 % Nasal [place] 1 spray NASL BID 04/09/19 Butorphanol Tartrate 1 spray NS DAILYP PRN 04/09/19 Dicyclomine HCl [Bentyl 10 mg Capsule] 10 mg PO QIDP PRN 04/09/19 Diphenoxylate HCl/Atropine [Lomotil 2.5-0.025 mg Tablet] 1 each PO DAILYP PRN 04/09/19 Donepezil HCl [Aricept] 10 mg PO DAILY 04/09/19 Duloxetine HCl [Cymbalta 30 mg Capsule.dr] 60 mg PO DAILY 04/09/19 Ergocalciferol (Vitamin D2) [Drisdol 50,000 unit (1.25MG) Capsule] 50,000 unit PO [id number] 04/09/19 Eszopiclone [Lunesta] 3 mg PO QHS 04/09/19 Fluoxetine HCl [Prozac 20 mg Capsule] 80 mg PO DAILY 04/09/19 Fluticasone Propionate [Flonase Nasal [place] 50 Mcg/[place] 16 gm] 1 spray NASL DAILY 04/09/19 Fluticasone/Umeclidin/Vilanter [Trelegy 100-62.5-25 Mcg Ellipta 14 Dose/Dpi] 1 each IH DAILY 04/09/19 Fondaparinux Sodium [Arixtra Inj 7.5 mg/0.6 ml Disp. Syrin] 7.5 mg SUBCUT DAILY 04/09/19 Levocetirizine Dihydrochloride [Xyzal] 5 mg PO QHS 04/09/19 Levothyroxine Sodium [Synthroid] 250 mcg PO Q6AM 04/09/19 Magnesium Oxide [Mag-Ox 400 mg Tablet] 400 mg PO DAILY 04/09/19 Menthol/Zinc Oxide [Calmoseptine Ointment] 1 applic TP TIDP PRN 04/09/19 Metolazone [Zaroxolyn 5 mg Tablet] 5 mg PO DAILY 04/09/19 Nystatin [Nystop] 1 applic TP BIDP PRN 04/09/19 Omeprazole 20 mg PO Q6AM 04/09/19 Oxycodone HCl [Oxy-Ir 5 mg Tablet] 15 mg PO Q6HP PRN 04/09/19 Pnv,Calcium 72/Iron/Folic Acid [ Vitamin Plus Low Iron] 1 each PO DAILY 04/09/19 Potassium Chloride [Klor-Con 10 Meq Capsule ER] 20 meq PO DAILY 04/09/19 Primidone [Mysoline] 50 mg PO Q8 04/09/19 Ramipril [Altace 2.5 mg Capsule] 2.5 mg PO QHS 04/09/19 Ropinirole HCl [Requip 0.25 mg Tablet] 0.25 mg PO BID 04/09/19 Torsemide [Demadex 20 mg Tablet] 40 mg PO DAILY 04/09/19 History of Present Illiness History of Present Illness: LEATHA ATKINS is a 63 year old female, Patient is new to our practice, she came to establish with us about 2 days ago, she has multiple comorbid conditions including chronic respiratory failure with hypoxemia on home oxygen, chronic obstructive pulmonary disease, history of multiple stroke, hypertension, morbid obesity, opioid dependency, sedentary, multiple hospitalization. She was just recently discharged from this hospital by the hospitalist on 03/27/2019. She was Dr. Pan patient, he does not admit in the hospital, she the patient usually get admitted by the hospitalist. I reviewed the records she has had multiple hospitalization by this team. She was brought to the emergency room by her for evaluation of shortness of breath, fluid retention. In the emergency room she was evaluated she was found to have pneumonia.She is also polypharmacy, on so many medicationsShe had CT chest without contrast on 03/28/2019, it demonstrated reticulonodular infiltrate in the upper lobes right more than left in the left lower lobe. There is a background of chronic interstitial changes. No fibrosis.Patient with increased work of breathing I thought she could benefit from Trilogy, a noninvasive positive pressure ventilation device.I will consult with pulmonary regarding the need for trilogy.This patient condition is going to be a challenge to manage, on review of her medical records she has had multiple hospital admission with physical therapy and rehabilitation in the nursing of facilities Hospital Course Hospital Course: Patient was admitted for the management of pneumonia, fluid retention, chronic respiratory failure. Consultation was requested from pulmonary to determine the suitability for trilogy, a noninvasive positive pressure ventilation, pulmonary, Dr. Andreson felt patient does not meet the criteria for the device. She also was treated with IV antibiotic for pneumonia, she has tremendous fluid retention due to multitude of factors, this was treated with Lasix infusion, she diuresed extensively with the intent to achieve dry weight. It is felt that patient has achieved maximum inpatient care benefit and will be discharged home Physical Exam Vital Signs: Temp Pulse Resp BP Pulse Ox 98.9 F 86 16 112/65 100 04/16/19 15:58 04/16/19 15:58 04/16/19 15:58 04/16/19 15:58 04/16/19 15:58 Intake & Output 04/15/19 04/16/19 04/17/19 06:59 06:59 06:59 Intake Total 1805 876 600 Output Total 850 450 350 Balance 955 426 250 Weight 111.7 kg 107.5 kg General appearance: PRESENT: no acute distress, obese Eye exam: PRESENT: PERRLA Respiratory exam: PRESENT: clear to auscultation allison Cardiovascular exam: PRESENT: +S1, +S2 GI/Abdominal exam: PRESENT: soft Neurological exam: PRESENT: alert, CN II-XII grossly intact Results Laboratory Results: WBC 5.0 10^3/uL (4.0-10.5) 04/15/19 07:13 RBC 3.29 10^6/uL (3.72-5.28) L 04/15/19 07:13 Hgb 9.8 g/dL (12.0-15.5) L 04/15/19 07:13 Hct 29.1 % (36.0-47.0) L 04/15/19 07:13 MCV 88 fl (80-97) 04/15/19 07:13 MCH 29.7 pg (27.0-33.4) 04/15/19 07:13 MCHC 33.6 g/dL (32.0-36.0) 04/15/19 07:13 RDW 15.3 % (11.5-14.0) H 04/15/19 07:13 Plt Count 214 10^3/uL (150-450) 04/15/19 07:13 Lymph % (Auto) 28.7 % (13-45) 04/15/19 07:13 [place] % (Auto) 10.5 % (3-13) 04/15/19 07:13 Eos % (Auto) 4.1 % (0-6) 04/15/19 07:13 Baso % (Auto) 0.5 % (0-2) 04/15/19 07:13 Reticulocyte # 0.048 10^6/uL (0.028-0.122) 04/11/19 05:13 Absolute Neuts (auto) 2.8 10^3/uL (1.7-8.2) 04/15/19 07:13 Absolute Lymphs (auto) 1.4 10^3/uL (0.5-4.7) 04/15/19 07:13 Absolute Monos (auto) 0.5 10^3/uL (0.1-1.4) 04/15/19 07:13 Absolute Eos (auto) 0.2 10^3/uL (0.0-0.6) 04/15/19 07:13 Absolute Basos (auto) 0.0 10^3/uL (0.0-0.2) 04/15/19 07:13 Seg Neutrophils % 56.2 % (42-78) 04/15/19 07:13 Retic Count (auto) 1.67 % (0.66-2.85) 04/11/19 05:13 Sodium 138.2 mmol/L (137-145) 04/15/19 07:13 Potassium 3.3 mmol/L (3.6-5.0) L 04/15/19 07:13 Chloride 97 mmol/L (98-107) L 04/15/19 07:13 Carbon Dioxide 33 mmol/L (22-30) H 04/15/19 07:13 Anion Gap 8 (5-19) 04/15/19 07:13 BUN 15 mg/dL (7-20) 04/15/19 07:13 Creatinine 1.63 mg/dL (0.52-1.25) H 04/15/19 07:13 Est GFR ( Amer) 38 (>60) L 04/15/19 07:13 Est GFR (MDRD) Non-Af 32 (>60) L 04/15/19 07:13 Glucose 107 mg/dL (75-110) 04/15/19 07:13 Hemoglobin A1c % 5.4 % (4.7-6.0) 04/10/19 06:19 Lactic Acid 1.3 mmol/L (0.7-2.1) 04/09/19 15:16 Calcium 7.5 mg/dL (8.4-10.2) L 04/15/19 07:13 Iron 29.8 ug/dL (37-170) L 04/11/19 05:13 TIBC 199 ug/dL (250-450) L 04/11/19 05:13 % Saturation 15 % 04/11/19 05:13 Ferritin 140.00 ng/mL (11.1-264.0) 04/11/19 05:13 Total Bilirubin 0.3 mg/dL (0.2-1.3) 04/15/19 07:13 Direct Bilirubin 0.2 mg/dL (0.0-0.4) 04/15/19 07:13 Neonat Total Bilirubin Not Reportable 04/15/19 07:13 Neonat Direct Bilirubin Not Reportable 04/15/19 07:13 Neonat Indirect Bili Not Reportable 04/15/19 07:13 AST 25 U/L (14-36) 04/15/19 07:13 ALT 14 U/L (<35) 04/15/19 07:13 Alkaline Phosphatase 70 U/L (38-126) 04/15/19 07:13 Creatine Kinase 51 U/L (30-135) 04/09/19 21:17 CK-MB (CK-2) 0.59 ng/mL (<4.55) 04/09/19 21:17 Troponin I < 0.012 ng/mL 04/09/19 21:17 NT-Pro-B Natriuret Pep 220 pg/mL (5-900) 04/09/19 21:17 Total Protein 6.1 g/dL (6.3-8.2) L 04/15/19 07:13 Albumin 3.2 g/dL (3.5-5.0) L 04/15/19 07:13 Vitamin B12 841.0 pg/mL (239-931) 04/11/19 05:13 Folate > 20.00 ng/mL (>2.76) 04/11/19 05:13 Immunoglobulin A 272 mg/dL (87-352) 04/12/19 06:13 Immunoglobulin G 919 mg/dL (700-1600) 04/12/19 06:13 Immunoglobulin M 120 mg/dL (26-217) 04/12/19 06:13 Urine Color STRAW 04/10/19 10:13 Urine Appearance CLEAR 04/10/19 10:13 Urine pH 5.0 (5.0-9.0) 04/10/19 10:13 Ur Specific [place] 1.006 04/10/19 10:13 Urine Protein NEGATIVE mg/dL (NEGATIVE) 04/10/19 10:13 Urine Glucose (UA) NEGATIVE mg/dL (NEGATIVE) 04/10/19 10:13 Urine Ketones NEGATIVE mg/dL (NEGATIVE) 04/10/19 10:13 Urine Blood NEGATIVE (NEGATIVE) 04/10/19 10:13 Urine Nitrite NEGATIVE (NEGATIVE) 04/10/19 10:13 Urine Bilirubin NEGATIVE (NEGATIVE) 04/10/19 10:13 Urine Urobilinogen NEGATIVE mg/dL (<2.0) 04/10/19 10:13 Ur Leukocyte Esterase TRACE (NEGATIVE) H 04/10/19 10:13 Urine WBC (Auto) 5 /HPF 04/10/19 10:13 Urine RBC (Auto) 0 /HPF 04/10/19 10:13 U Hyaline Cast (Auto) 1 /LPF 04/10/19 10:13 Squamous Epi Cells Auto <1 /HPF 04/10/19 10:13 Urine Ascorbic Acid NEGATIVE (NEGATIVE) 04/10/19 10:13 Stl Occult Blood (ICT) NEGATIVE (NEGATIVE) 04/12/19 08:35 Stl C. Difficile GDH Ag NEGATIVE (NEGATIVE) 04/15/19 08:25 Stl C.difficile Tox A&B NEGATIVE (NEGATIVE) 04/15/19 08:25 04/09/19 21:17 CK-MB (CK-2) 0.59 Troponin I < 0.012 NT-Pro-B Natriuret Pep 220 Impressions: Chest X-Ray 04/09/19 14:01 IMPRESSION: Cannot exclude right upper lobe or left lower lobe pneumonia. Stroke Is this a Stroke Patient?: No Stroke Pt being discharged on Anti-thrombolytic therapy?: No Reason(s) for not prescribing Anti-thrombolytic therapy:: Not indicated Stroke Pt being discharged on Anti-coagulation therapy?: No Reason(s) for not prescribing Anti-coagulation therapy:: Not indicated Stroke Pt being discharged on Statins?: No Reason(s) for not prescribing Statins therapy:: Not indicated Acute Heart Failure - Is this a Heart Failure Patient?: No Follow-up Appointment scheduled within 7 days?: Yes
[2019-04-16] MEDS: RAMIPRIL 2.5 MG CAPSULE PO SCH (21:20)
[2019-04-16] MEDS: CETIRIZINE 5 MG TABLET PO SCH (21:21)
[2019-04-16] MEDS: ESZOPICLONE 3 MG PO SCH (21:23)
[2019-04-17] MEDS ORDERED: OXYCODONE HCL IR 5 MG TABLET ONE (00:44)
[2019-04-17] MEDS: OXYCODONE HCL IR 5 MG TABLET PO PRN ×2 (01:29→10:30)
[2019-04-17] MEDS: PROMETHAZINE HCL 25 MG TABLET PO PRN ×2 (01:29→10:30)
[2019-04-17] MEDS: PANTOPRAZOLE SODIUM 20 MG TABLET.DR PO SCH (06:12)
[2019-04-17] MEDS: LEVOTHYROXINE SODIUM 0.1 MG TABLET PO SCH (06:12)
[2019-04-17] MEDS: LEVOTHYROXINE SODIUM 0.15 MG TABLET PO SCH (06:12)
[2019-04-17] MEDS: PRIMIDONE 50 MG TABLET PO SCH ×2 (06:12→13:43)
[2019-04-17] MEDS: ONDANSETRON HCL 8 MG TABLET PO PRN (06:12)
[2019-04-17] MEDS: FLUTICASONE/UMECLIDIN/VILANTER 100-62.5-25 MCG/DOSE IH SCH (09:55)
[2019-04-17] MEDS: FLUTICASONE NASAL SPRAY 50 MCG/SPRY 120 SPRAY/16 GM NASL SCH (09:55)
[2019-04-17] MEDS: FLUOXETINE HCL 20 MG CAPSULE PO SCH (09:56)
[2019-04-17] MEDS: PRENATAL VITAMIN W DHA CAPSULE PO SCH (09:56)
[2019-04-17] MEDS: POTASSIUM CHLORIDE 10 MEQ CAPSULE.ER PO SCH (09:56)
[2019-04-17] MEDS: DONEPEZIL HCL 5 MG TABLET PO SCH (09:56)
[2019-04-17] MEDS: ROPINIROLE HCL 0.25 MG TABLET PO SCH (09:56)
[2019-04-17] MEDS: DULOXETINE HCL 30 MG CAPSULE.DR PO SCH (09:56)
[2019-04-17] MEDS: FONDAPARINUX SODIUM INJ 7.5 MG/0.6 ML DISP.SYRIN SUBCUT SCH (09:56)
[2019-04-17] MEDS: TORSEMIDE 20 MG TABLET PO SCH (09:56)
[2019-04-17] MEDS: ATORVASTATIN CALCIUM 20 MG TABLET PO SCH (09:56)
--- NOTE | 2019-04-17 11:06 | PDOC PROGRESS REPORT ---
Subjective Progress Note for:: 04/15/19 Subjective:: Frustrated with therapeutic plan wants to go home Reason For Visit: PNEUMONIA,ACUTE ON CHRONIC RESPIRATORY FAILURE, Physical Exam Vital Signs: Temp Pulse Resp BP Pulse Ox 98.4 F 93 20 123/64 100 04/17/19 08:26 04/17/19 08:26 04/17/19 08:26 04/17/19 08:26 04/17/19 08:26 Intake & Output 04/16/19 04/17/19 04/18/19 06:59 06:59 06:59 Intake Total 876 600 Output Total 450 650 Balance 426 -50 Weight 107.5 kg 108.6 kg General appearance: PRESENT: no acute distress, cooperative, disheveled, morbidly obese Head exam: PRESENT: atraumatic, normocephalic Eye exam: PRESENT: conjunctiva pale, EOMI. ABSENT: nystagmus Mouth exam: PRESENT: moist, neck supple, tongue midline Neck exam: ABSENT: carotid bruit, full ROM, JVD, lymphadenopathy, meningismus, tenderness, thyromegaly, tracheal deviation, tracheostomy, other Respiratory exam: PRESENT: decreased breath sounds, prolonged expiratory phas, rhonchi, unlabored. ABSENT: rales, retraction, stridor, tachypnea Cardiovascular exam: PRESENT: RRR, +S1, +S2. ABSENT: tachycardia Pulses: PRESENT: normal radial pulses GI/Abdominal exam: PRESENT: soft. ABSENT: distended, guarding, mass, rebound, tenderness Extremities exam: PRESENT: +1 edema. ABSENT: calf tenderness, clubbing, joint swelling, tenderness Musculoskeletal exam: ABSENT: deformity, dislocation Neurological exam: PRESENT: alert, awake Psychiatric exam: PRESENT: depressed Skin exam: PRESENT: dry, warm Results Laboratory Results: 04/15/19 07:13 04/15/19 07:13 04/09/19 04/09/19 21:17 21:17 Creatine Kinase 51 CK-MB (CK-2) 0.59 Troponin I < 0.012 NT-Pro-B Natriuret Pep 220 Impressions: Chest X-Ray 04/09/19 14:01 IMPRESSION: Cannot exclude right upper lobe or left lower lobe pneumonia. Assessment & Plan - Diagnosis (1) Acute and chronic respiratory failure with hypoxia Is this a current diagnosis for this admission?: Yes Plan: Continues to improve very near baseline (2) COPD (chronic obstructive pulmonary disease) Qualifiers: Chronic bronchitis type: unspecified Is this a current diagnosis for this admission?: Yes Plan: Generic Name Dose Route Start Last Admin Trade Name Freq PRN Reason Stop Dose Admin Alprazolam 0.5 mg 04/09/19 22:00 04/09/19 23:15 Xanax 0.5 Mg Tablet PO 04/16/19 21:59 0.5 mg QID KEILY Albuterol 1 puff 04/09/19 20:40 Proair Hfa Inhalation Aerosol 8.5 Gm Mdi IH 05/09/19 20:39 QIDP PRN SOB Albuterol 2.5 mg 04/09/19 20:40 04/09/19 23:33 Ventolin 0.083% Neb 2.5 Mg/3 Ml Ampul NEB 05/09/19 20:39 2.5 mg [id number] PRN WHEEZING Fluticasone/Vilanterol 1 inh 04/09/19 20:45 04/09/19 23:23 Trelegy 100-62.5-25 Mcg Ellipta 14 Dose/Dpi IH 05/09/19 20:44 1 inhaler DAILY [facility] Zolpidem Tartrate 5 mg 04/09/19 22:00 04/09/19 23:17 Ambien 5 Mg Tablet PO 04/16/19 21:59 Not Given QHS [facility] Fluticasone Propionate 1 spray 04/09/19 20:45 04/09/19 23:24 Flonase Nasal Bigler 50 Mcg/Bigler 16 Gm NASL 05/09/19 20:44 1 spray DAILY [facility] Levofloxacin/Dextrose 750 mg in 150 mls @ 100 mls/hr 04/09/19 22:00 04/10/19 06:15 Levaquin Rtu 750 Mg/D5w 150 Ml Premix IV 04/16/19 21:59 Infused QHS [facility] (3) Chronic kidney disease, stage 3 Is this a current diagnosis for this admission?: Yes Plan: per nephrology Labs- All tests 24 hr 04/09/19 04/10/19 15:16 06:19 BUN 26 H 28 H Creatinine 1.87 H 1.61 H (4) Dysphasia Is this a current diagnosis for this admission?: Yes Plan: see mod ba swallow 03/30/19 (5) Hypertension Qualifiers: Hypertension type: essential hypertension Qualified Code(s): I10 - Essential (primary) hypertension Is this a current diagnosis for this admission?: Yes Plan: stable at this time;echo 06/24/18 good EF> 70% no comment PHTN (6) Obesity Qualifiers: Obesity type: due to excess calories Serious obesity comorbidity presence: unspecified whether serious comorbidity present Body mass index: BMI 40.0-44.9 Is this a current diagnosis for this admission?: Yes Plan: consider dietary consult (7) Aspiration into airway Qualifiers: Encounter type: subsequent encounter Qualified Code(s): T17.908D - Unspecified foreign body in respiratory tract, part unspecified causing other injury, subsequent encounter Is this a current diagnosis for this admission?: Yes Plan: please mod ba swallow 03/30/19
[2019-04-17 12:53] VITALS: BP 92/46
== END 2019-04-17 14:30 | disposition home health service (06) | DRG 193 ==
LOC: ER 13:58 → OBSVTOIN 17:32 → EH 17:32 → 4N 20:30
PROVIDERS: ADMIT Internal Medicine; ATTEND Internal Medicine
DX: J18.1 Lobar pneumonia, unspecified organism (principal); J96.22 Acute and chronic respiratory failure with hypercapnia; J96.21 Acute and chronic respiratory failure with hypoxia; J44.1 Chronic obstructive pulmonary disease with (acute) exacerbation; F11.20 Opioid dependence, uncomplicated; I13.0 Hypertensive heart and chronic kidney disease with heart failure and stage 1 through stage 4 chronic kidney disease, or unspecified chronic kidney disease; Z68.41 Body mass index [BMI] 40.0-44.9, adult; N18.3 Chronic kidney disease, stage 3 (moderate); I50.9 Heart failure, unspecified; D63.1 Anemia in chronic kidney disease; E78.00 Pure hypercholesterolemia, unspecified; E03.9 Hypothyroidism, unspecified; R47.02 Dysphasia; E66.01 Morbid (severe) obesity due to excess calories; Z86.73 Personal history of transient ischemic attack (TIA), and cerebral infarction without residual deficits; Z99.81 Dependence on supplemental oxygen; Z79.51 Long term (current) use of inhaled steroids; Z79.899 Other long term (current) drug therapy
CPT/HCPCS: 36415; 71045; 80053; 81001; 82272; 82550; 82553; 82607; 82728; 82746; 82784; 83036; 83540; 83550; 83605; 83880; 84484; 85025; 85045; 87040; 87070; 87324; 87449; 93005; 93010; 94640; 96361; 96365; 96375; 99291; J1652; J1940; J1956; J2930; J3370; J3490; J7030; J7050; J7620; S0119

== ENCOUNTER 2019-04-19 13:19 | Inpatient (IN) | payer MEDICARE, OTHER ==
[2019-04-19 14:47] LABS: ABSOLUTE EOSINOPHILS # (AUTO) 0.1 10^3/uL (0.0-0.6); ABSOLUTE LYMPHOCYTES (AUTO) 1.5 10^3/uL (0.5-4.7); ABSOLUTE MONOCYTES (AUTO) 0.9 10^3/uL (0.1-1.4); ABSOLUTE NEUT (AUTO) 5.5 10^3/uL (1.7-8.2); BASOPHILS % (AUTO) 0.3 % (0-2); EOSINOPHILS % (AUTO) 1.6 % (0-6); HEMATOCRIT 27.9 % (36.0-47.0); HEMOGLOBIN 9.4 g/dL (12.0-15.5); LYMPHOCYTES % (AUTO) 18.4 % (13-45); MEAN CORPUSCULAR HEMOGLOBIN 29.7 pg (27.0-33.4); MEAN CORPUSCULAR HGB CONC 33.5 g/dL (32.0-36.0); MEAN CORPUSCULAR VOLUME 89 fl (80-97); MONOCYTES % (AUTO) 10.9 % (3-13); PLATELET COUNT 176 10^3/uL (150-450); RED BLOOD COUNT 3.15 10^6/uL (3.72-5.28); RED CELL DISTRIBUTION WIDTH 15.3 % (11.5-14.0); SEGMENTED NEUTROPHILS % (AUTO) 68.8 % (42-78); TOTAL CELLS COUNTED % (AUTO) 100 %
[2019-04-19] MEDS ORDERED: RINGERS SOLUTION,LACTATED 1,000 ML IV ONE (14:47)
--- NOTE | 2019-04-19 14:58 | RADIOLOGY REPORT (SQ) ---
EXAM DESCRIPTION: CHEST SINGLE VIEW COMPLETED DATE/TIME: 04/19/2019 2:45 pm REASON FOR STUDY: chest pain COMPARISON: 04/09/2019 EXAM PARAMETERS: NUMBER OF VIEWS: One view. TECHNIQUE: Single frontal radiographic view of the chest acquired. RADIATION DOSE: NA LIMITATIONS: None. FINDINGS: LUNGS AND PLEURA: Parenchymal opacity at the left base. Minimal opacity in the right uppe r lobe. No pneumothorax. MEDIASTINUM AND HILAR STRUCTURES: No masses. Contour normal. HEART AND VASCULAR STRUCTURES: Heart normal in size. Normal vasculature. BONES: No acute findings. HARDWARE: None in the chest. OTHER: No other significant finding. IMPRESSION: Less basilar and right upper lobe opacities. No improvement over the previous study. TECHNICAL DOCUMENTATION: JOB ID: [id number] Location- All Rights Reserved Reading location - IP/workstation name: [email or web address]
[2019-04-19 14:59] LABS: VENOUS BLOOD BASE EXCESS -2.1 mmol/L; VENOUS BLOOD HCO3 23.4 mmol/L (20-32); VENOUS BLOOD PCO2 42.3 mmHg (35-63); VENOUS BLOOD PH 7.36 (7.30-7.42)
[2019-04-19 15:03] LABS: INTERNATIONAL RATION (INR) 1.22; PROTHROMBIN TIME 15.5 SEC (11.4-15.4)
[2019-04-19 17:49] LABS: ALBUMIN 3.3 g/dL (3.5-5.0); ALKALINE PHOSPHATASE 76 U/L (38-126); ANION GAP 11 (5-19); ASPARTATE AMINO TRANSFERASE 26 U/L (14-36); BILIRUBIN,DIRECT 0.3 mg/dL (0.0-0.4); BILIRUBIN,TOTAL 0.4 mg/dL (0.2-1.3); BLOOD UREA NITROGEN 37 mg/dL (7-20); CARBON DIOXIDE 26 mmol/L (22-30); CHLORIDE 98 mmol/L (98-107); CREATINE KINASE 93 U/L (30-135); GLUCOSE 98 mg/dL (75-110); POTASSIUM 3.6 mmol/L (3.6-5.0); TOTAL PROTEIN 6.5 g/dL (6.3-8.2)
[2019-04-19 18:01] LABS: CREATINE KINASE MB 0.5 ng/mL (<4.55); TROPONIN I 0.012 ng/mL
[2019-04-19 18:12] LABS: APPEARANCE,URINE SLIGHTLY-CLOUDY; BILIRUBIN,URINE NEGATIVE (NEGATIVE); COLOR,URINE AMBER; GLUCOSE, URINE NEGATIVE (NEGATIVE); KETONES,URINE NEGATIVE (NEGATIVE); LEUKOCYTE ESTERASE,URINE NEGATIVE (NEGATIVE); NITRITE,URINE NEGATIVE (NEGATIVE); PROTEIN,URINE NEGATIVE (NEGATIVE); URINE SPECIFIC GRAVITY 1.015; UROBILINOGEN,URINE NEGATIVE mg/dL (<2.0)
--- NOTE | 2019-04-19 18:16 | ER Document Report ---
ED General - General Chief Complaint: Chest Pain Stated Complaint: CHEST PAIN Time Seen by Provider: 04/19/19 13:42 Primary Care Provider: JIN KAUFFMAN MD [Primary Care Provider] - Follow up as needed Notes: 63-year-old female presents emergency department complaining of intermittent left upper quadrant abdominal pain for the past 3 days associated with redness and pain to her left great toe for the past 2 days. Denies any fevers, denies any nausea, vomiting or diarrhea. Does state that she has had pneumonia for the past month and has been readmitted 2 or 3 times over the past month. Last finished antibiotics on . Not currently taking any steroids. TRAVEL OUTSIDE OF THE [place] IN LAST 30 DAYS: No - Related Data Allergies/Adverse Reactions: pregabalin [From Lyrica] Allergy (Unknown, Verified 03/08/19 22:52) trazodone HCl [From Desyrel] Allergy (Unknown, Verified 03/08/19 22:52) cephalexin monohydrate [From Keflex] Adverse Reaction (Verified 03/08/19 22:52) nausea, vomiting erythromycin base [Erythromycin Base] Adverse Reaction (Verified 03/08/19 22:52) nausea, vomiting gabapentin Adverse Reaction (Verified 03/08/19 22:52) Nausea guaifenesin [From Entex T] Adverse Reaction (Verified 03/08/19 22:52) Nausea pseudoephedrine [From Entex T] Adverse Reaction (Verified 03/08/19 22:52) Nausea Past Medical History - General Information source: Patient - Social History Smoking Status: Former Smoker Chew tobacco use (# tins/day): No Frequency of alcohol use: None Drug Abuse: None Family History: CAD, Hypertension. denies: DM, Malignancy Patient has suicidal ideation: No Patient has homicidal ideation: No - Past Medical History Cardiac Medical History: Reports: Hx Congestive Heart Failure, Hx Hypercholesterolemia, Hx Hypertension Denies: Hx Atrial Fibrillation, Hx Coronary Artery Disease - HIGH CHOLESTEROL, Hx DVT, Hx Heart Attack, Hx Pulmonary Embolism Pulmonary Medical History: Reports: Hx Asthma, Hx Bronchitis, Hx COPD, Hx Pneumonia - Several admissions within the last 12 months, Hx Respiratory Failure Denies: Hx Tuberculosis Neurological Medical History: Reports: Hx Cerebrovascular Accident - 7 YEARS AGO HAS "MEMORY ISSUES" "STROKE X4, last one 2005. Denies: Hx Seizures Endocrine Medical History: Reports: Hx Hypothyroidism. Denies: Hx Diabetes Mellitus Type 1, Hx Diabetes Mellitus Type 2, Hx Hyperthyroidism Renal/ Medical History: Reports: Hx Renal Insufficiency. Denies: Hx End Stage Renal Disease, Hx Peritoneal Dialysis GI Medical History: Denies: Hx Cirrhosis, Hx Crohn's Disease, Hx Hepatitis, Hx Ulcerative Colitis Musculoskeletal Medical History: Reports Hx Arthritis, Denies Hx Fibromyalgia, Denies Hx Gout Skin Medical History: Denies Hx Eczema, Denies Hx Psoriasis Psychiatric Medical History: Reports: Hx Depression Traumatic Medical History: Denies: Hx Traumatic Brain Injury Infectious Medical History: Denies: Hx Hepatitis, Hx HIV Past Surgical History: Reports: Hx Dilation and Curettage, Hx Hysterectomy, Hx Orthopedic Surgery - Wrist fracture repair, Hx Tubal Ligation - Immunizations Hx Diphtheria, Pertussis, Tetanus Vaccination: Yes Hx Pneumococcal Vaccination: 07/22/18 Review of Systems - Review of Systems Constitutional: No symptoms reported EENT: No symptoms reported Gastrointestinal: See HPI Genitourinary: No symptoms reported Musculoskeletal: See HPI Skin: See HPI -: Yes All other systems reviewed and negative Physical Exam - Vital signs Vitals: Pulse Ox 94 04/19/19 13:36 Interpretation: Hypotensive - Notes Notes: GENERAL: Alert, interacts well. No acute distress. HEAD: Normocephalic, atraumatic EYES: Pupils equal, round and reactive to light, extraocular movements intact. ENT: Oral mucosa moist, tongue midline. NECK: Full range of motion, supple, trachea midline. LUNGS: Clear to auscultation bilaterally, no wheezes, rales or rhonchi, no respiratory distress. HEART: Regular rate and rhythm, no murmurs, gallops, rubs. ABDOMEN: Soft, nontender, nondistended, bowel sounds present in all 4 quadrants. EXTREMITIES: Moves all 4 extremities spontaneously, no edema, radial and dorsalis pedis pulses 2/4 bilaterally. No cyanosis. Left first MTP joint is erythematous, mildly tender to palpation, also tender to light touch and laterally angulated. No bruising, no breaks in the skin. NEUROLOGICAL: Alert and oriented x3, normal speech. PSYCH: Normal mood, normal affect. SKIN: Warm, Dry, normal turgor, no rashes or lesions noted. Course - Re-evaluation Re-evalutation: 04/19/19 18:15 CBC shows anemia with a hemoglobin 9.4, this is relatively stable, venous blood gas unremarkable, INR prolonged at 1.22, sodium slightly low 134.5, BUN is elevated at 37 and this is worse than discharge, creatinine also elevated compared to discharge at 3.79, calcium low at 6, lactic acid normal, cardiac enzymes negative, urinalysis unremarkable. Chest x-ray is unchanged from prior chest x-ray and shows left basilar and right upper lobe opacities. Awaiting CT scan of the abdomen to look at what is causing her pain as well as Doppler of the leg to look at possibility of DVT. Suspect the right foot pain is from gout, really no evidence of infection, will not treat with colchicine as she is in renal failure. Will likely need admission for the renal failure. 04/19/19 19:41 CT scan does not show any concerning findings. I am concerned by her renal failure. Will call to discuss possibility of admission with Dr. Kauffman. 04/19/19 19:41 Urinalysis unremarkable 04/19/19 19:52 Though she is asymptomatic the patient is still hypotensive and in renal failure. Discussed with Dr. Kauffman who agrees to put the patient on his service in observation status, we will try 1 more liter fluid. 04/19/19 19:57 pulse ox as recorded at 72% is inaccurate and a poor wave form. - Vital Signs Vital signs: Temp Pulse Resp BP Pulse Ox 99.3 F 16 88/54 L 72 L 04/19/19 14:00 04/19/19 14:00 04/19/19 14:00 04/19/19 14:00 - Laboratory Result Diagrams: 04/19/19 14:19 04/19/19 17:20 Laboratory results interpreted by me: 04/19/19 04/19/19 04/19/19 14:19 14:19 17:20 RBC 3.15 L Hgb 9.4 L Hct 27.9 L RDW 15.3 H PT 15.5 H Sodium 134.5 L BUN 37 H Creatinine 3.79 H Est GFR ( Amer) 14 L Est GFR (MDRD) Non-Af 12 L Calcium 6.0 L* Albumin 3.3 L - EKG Interpretation by Me Additional EKG results interpreted by me: 04/19/19 18:16 EKG shows sinus rhythm at a rate of 88, no ST segment elevations or depressions, normal axis, normal intervals Discharge - Discharge Clinical Impression: Acute on chronic renal failure Qualifiers: Acute renal failure type: unspecified Chronic kidney disease stage: stage 3 (moderate) Qualified Code(s): N17.9 - Acute kidney failure, unspecified; N18.3 - Chronic kidney disease, stage 3 (moderate) Hypotension Qualifiers: Hypotension type: unspecified hypotension type Qualified Code(s): I95.9 - Hypotension, unspecified Condition: Fair Disposition: ADMITTED OBSERVATION Admitting Provider: Crystal Unit Admitted: Telemetry Referrals: JIN KAUFFMAN MD [Primary Care Provider] - Follow up as needed
--- NOTE | 2019-04-19 19:12 | RADIOLOGY REPORT (SQ) ---
EXAM DESCRIPTION: CT ABDOMEN NO ORAL OR IV COMPLETED DATE/TIME: 04/19/2019 6:43 pm REASON FOR STUDY: LUQ abd pain COMPARISON: CT abdomen pelvis 07/31/2018 TECHNIQUE: CT scan of the abdomen performed without intravenous contrast and without oral contrast. Images reviewed with lung, soft tissue, and bone windows. Reconstructed coronal and sagittal MPR im ages reviewed. All images stored on PACS. All CT scanners at this facility use dose modulation, iterative reconstruction, and/or weight based d osing when appropriate to reduce radiation dose to as low as reasonably achievable (ALARA). [facility]: Dose Right [facility]: CareDose [facility]: Dose Right [facility]: Teradose 4D [facility]: Smart [employer] RADIATION DOSE: CT Rad equipment meets quality standard of care and radiation dose reduction techniq ues were employed. CTDIvol: 20.7 mGy. DLP: 1088 mGy-cm.mGy. LIMITATIONS: None. FINDINGS: LOWER CHEST: Chronic appearing reticulonodular infiltrate at the left lung base, similar c ompared to 07/31/2018. NONCONTRASTED LIVER, SPLEEN, ADRENALS: Evaluation limited by lack of IV contrast. No identified sign ificant masses. PANCREAS: No masses. No peripancreatic inflammatory changes. GALLBLADDER: No identified stones by CT criteria. No inflammatory changes to suggest cholecystitis. RIGHT KIDNEY AND URETER: No suspicious masses. Assessment limited by lack of IV contrast. No signif icant calcifications. No hydronephrosis or hydroureter. LEFT KIDNEY AND URETER: No suspicious masses. Assessment limited by lack of IV contrast. No signifi cant calcifications. No hydronephrosis or hydroureter. AORTA AND RETROPERITONEUM: No aneurysm. No retroperitoneal masses or adenopathy. BOWEL AND PERITONEAL CAVITY: No obvious masses or inflammatory changes. No free fluid. APPENDIX: Normal. ABDOMINAL WALL: No abdominal wall hernias. Chronic appearing fluid collection over the left greater trochanter region unchanged from 07/31/2018 BONES: No significant findings. PELVIS: Normal size female pelvic organs. Bladder, rectum unremarkable IMPRESSION: No acute findings. No findings to explain history of left upper quadrant pain TECHNICAL DOCUMENTATION: JOB ID: [id number] Quality ID # [id number]: Final reports with documentation of one or more dose reduction techniques (e.g., Au tomated exposure control, adjustment of the mA and/or kV according to patient size, use of iterative reconstruction technique) 2010 [employer]- All Rights Reserved Reading location - IP/workstation name: [email or web address]
[2019-04-19] MEDS ORDERED: CALCIUM GLUCONATE 1000 MG/10 ML INJ IV ONE (19:43)
--- NOTE | 2019-04-19 19:44 | XCELERA REPORT ---
[address] [address] Lower Extremity Venous Evaluation Procedure: Color flow and duplex imaging of the veins of the left lower extremity as well as the right Common Femoral vein. Right Sided Venous Evaluation The right common femoral vein is fully compressible. Spontaneous and phasic flow is present in the right common femoral vein. Left Sided Venous Evaluation Normal vessel filling wall to wall, compression and augmentation as well as Colour flow down to the infrageniculate veins. Critical Findings Called in to Dr Temple at 1940. Interpretation Summary No duplex evidence of DVT or obstruction in the bilateral lower extremities. Name: LEATHA ATKINS Ursula Age: 63 yrs Gender: Female : 1955 Patient Status: Emergency Patient Location: ER Study Date: 04/19/2019 05:49 PM Reason For Study: right foot pain, swelling Ordering Physician: HUNTER CELIS Performed By: Gwendolyn Odonnell : HUNTER CELIS > Jorje Butler
[2019-04-19] MEDS ORDERED: NYSTATIN TOPICAL POWDER 15 GM TP PRN (22:50)
[2019-04-19] MEDS ORDERED: MENTHOL TP PRN (22:50)
[2019-04-19] MEDS ORDERED: DIPHENOXYLATE HCL/ATROP SULF 2.5-0.025 MG TABLET PO PRN (22:50)
[2019-04-19] MEDS ORDERED: ALBUTEROL SULFATE 0.083% NEB 2.5 MG/3 ML AMPUL NEB PRN (22:50)
[2019-04-19] MEDS ORDERED: BUTORPHANOL TARTRATE NS PRN (22:50)
[2019-04-19] MEDS ORDERED: ZINC OXIDE TP PRN (22:50)
[2019-04-19] MEDS ORDERED: DICYCLOMINE HCL 10 MG CAPSULE PO PRN (22:50)
[2019-04-19] MEDS ORDERED: ALBUTEROL SULFATE HFA (90 MCG/PUFF) 200 PUFF/8.5 GM MDI IH PRN (22:50)
[2019-04-19] MEDS ORDERED: ERGOCALCIFEROL (VITAMIN D2) 50000 UNIT (1.25 MG) CAPSULE PO SCH (23:00)
[2019-04-19] MEDS ORDERED: RAMIPRIL 2.5 MG CAPSULE PO SCH (23:00)
[2019-04-19] MEDS ORDERED: AZELASTINE 0.1% NASL SCH (23:00)
[2019-04-19] MEDS ORDERED: DULOXETINE HCL 30 MG CAPSULE.DR PO ONE (23:15)
[2019-04-19] MEDS ORDERED: ALPRAZOLAM 0.5 MG TABLET PO ONE (23:15)
[2019-04-19] MEDS ORDERED: ATORVASTATIN CALCIUM 20 MG TABLET PO ONE (23:15)
[2019-04-19] MEDS ORDERED: DONEPEZIL HCL 5 MG TABLET PO ONE (23:15)
[2019-04-19] MEDS ORDERED: FLUOXETINE HCL 20 MG CAPSULE PO ONE (23:15)
[2019-04-19] MEDS ORDERED: ZOLPIDEM TARTRATE 5 MG TABLET PO ONE (23:15)
[2019-04-19] MEDS ORDERED: FLUTICASONE NASAL SPRAY 50 MCG/SPRY 120 SPRAY/16 GM NASL ONE (23:15)
[2019-04-19] MEDS ORDERED: PRIMIDONE 50 MG TABLET PO ONE (23:30)
[2019-04-19] MEDS ORDERED: FLUTICASONE/UMECLIDIN/VILANTER 100-62.5-25 MCG/DOSE IH ONE (23:30)
[2019-04-19] MEDS ORDERED: ROPINIROLE HCL 0.25 MG TABLET PO ONE (23:30)
[2019-04-19] MEDS: OXYCODONE HCL IR 5 MG TABLET PO PRN (23:38)
[2019-04-19] MEDS: NORMAL SALINE 1000 ML 1,000 ML IV PRN (23:42)
[2019-04-19 23:51] LABS: ANION GAP 11 (5-19); BLOOD UREA NITROGEN 37 mg/dL (7-20); CARBON DIOXIDE 26 mmol/L (22-30); CHLORIDE 98 mmol/L (98-107); GLUCOSE 99 mg/dL (75-110); POTASSIUM 3.4 mmol/L (3.6-5.0)
[2019-04-20 00:05] LABS: CALCIUM 6.2 mg/dL (8.4-10.2)
--- NOTE | 2019-04-20 00:55 | EKG REPORT ---
SEVERITY:- ABNORMAL ECG - SINUS RHYTHM : Confirmed by: Priscilla Reddy 20-Apr-2019 00:53:50
[2019-04-20] MEDS: LEVOTHYROXINE SODIUM 0.15 MG TABLET PO SCH (06:58)
[2019-04-20] MEDS: LEVOTHYROXINE SODIUM 0.1 MG TABLET PO SCH (06:58)
[2019-04-20] MEDS: PANTOPRAZOLE SODIUM 20 MG TABLET.DR PO SCH (06:58)
[2019-04-20] MEDS: PRIMIDONE 50 MG TABLET PO SCH ×3 (06:58→21:53)
[2019-04-20 08:23] LABS: ABSOLUTE EOSINOPHILS # (AUTO) 0.1 10^3/uL (0.0-0.6); ABSOLUTE LYMPHOCYTES (AUTO) 0.9 10^3/uL (0.5-4.7); ABSOLUTE MONOCYTES (AUTO) 0.7 10^3/uL (0.1-1.4); ABSOLUTE NEUT (AUTO) 5.6 10^3/uL (1.7-8.2); BASOPHILS % (AUTO) 0.3 % (0-2); EOSINOPHILS % (AUTO) 1.1 % (0-6); HEMATOCRIT 24.2 % (36.0-47.0); HEMOGLOBIN 8.2 g/dL (12.0-15.5); LYMPHOCYTES % (AUTO) 12.4 % (13-45); MEAN CORPUSCULAR HEMOGLOBIN 29.8 pg (27.0-33.4); MEAN CORPUSCULAR HGB CONC 33.8 g/dL (32.0-36.0); MEAN CORPUSCULAR VOLUME 88 fl (80-97); MONOCYTES % (AUTO) 10.1 % (3-13); PLATELET COUNT 141 10^3/uL (150-450); RED BLOOD COUNT 2.75 10^6/uL (3.72-5.28); RED CELL DISTRIBUTION WIDTH 15.2 % (11.5-14.0); SEGMENTED NEUTROPHILS % (AUTO) 76.1 % (42-78); TOTAL CELLS COUNTED % (AUTO) 100 %; WHITE BLOOD COUNT 7.3 10^3/uL (4.0-10.5)
[2019-04-20] MEDS ORDERED: CALCIUM GLUCONATE 1000 MG/10 ML INJ IV ONE (09:15)
[2019-04-20] MEDS ORDERED: ATORVASTATIN CALCIUM 20 MG TABLET PO SCH (10:00)
[2019-04-20] MEDS ORDERED: DULOXETINE HCL 30 MG CAPSULE.DR PO SCH (10:00)
[2019-04-20] MEDS ORDERED: MAGNESIUM OXIDE 400 MG TABLET PO SCH (10:00)
[2019-04-20] MEDS ORDERED: FONDAPARINUX SODIUM INJ 7.5 MG/0.6 ML DISP.SYRIN SUBCUT SCH (10:00)
[2019-04-20] MEDS: POTASSIUM CHLORIDE 10 MEQ CAPSULE.ER PO SCH (10:02)
[2019-04-20] MEDS: FLUOXETINE HCL 20 MG CAPSULE PO SCH (10:02)
[2019-04-20] MEDS: ALPRAZOLAM 0.5 MG TABLET PO SCH ×4 (10:02→21:53)
[2019-04-20] MEDS: PRENATAL VITAMIN W DHA CAPSULE PO SCH (10:04)
[2019-04-20] MEDS: DONEPEZIL HCL 5 MG TABLET PO SCH (10:04)
[2019-04-20] MEDS: ROPINIROLE HCL 0.25 MG TABLET PO SCH ×2 (10:05→18:14)
[2019-04-20] MEDS: FLUTICASONE/UMECLIDIN/VILANTER 100-62.5-25 MCG/DOSE IH SCH (10:07)
[2019-04-20] MEDS: OXYCODONE HCL IR 5 MG TABLET PO PRN ×2 (11:28→18:14)
--- NOTE | 2019-04-20 11:56 | PDOC CONSULTATION ---
Consultation Consult Date: 04/20/19 Provider Consulted: Dheeraj MONTALVO Consult reason:: JANET with hypocalcemia History of Present Illness Admission Date/PCP: 04/19/19 22:45 JIN KAUFFMAN MD History of Present Illness: LEATHA ATKINS is a 63 year old female History of CKD 2/3 with a base creatinine of around 1.2, history of DVT and multiple CVA/TIA failed regular anticoagulants and currently is on Arixtra, Hypokalemia, hypomagnesemia was admitted with history of intermittent left upper quadrant pain and inflamed left big toe. She has had multiple admissions in the last couple of months for apparent pneumonia. CT scan has shown left basal reticulonodular pattern. She has been evaluated by multiple physicians. Presently she denies any history of coughing spells fever or chills. She denies any GI symptoms. No history of any genitourinary symptoms. She did develop acute onset of inflamed left big toe with a history of acute gout and this is her first attack. She denies any history of chest pains or palpitations or orthostasis. Evaluations in the ER revealed that the patient was hypotensive along with JANET with a creatinine of 3-4. Her calcium was also found to be low. No symptoms of tetany. She has been admitted for further evaluations. Her only antihypertensive has been a low-dose of ramipril 2.5 mg.Her most recent discharge creatinine a week ago was 1.6. She was last seen in my office by Ambrose Guzman my PA in October 2018 at this point her creatinine was 1.2, Normal calcium and phosphorus levels. No PTH had been done in my office. She had labs done in December by Dr Pan, who was thenher PCP which I reviewed which shows a creatinine of 1.7, Normal calcium and phosphorus along with PTH of 300-400. She is not on any vitamin D preparations. She has switched to Dr. Kauffman as primary care in the last month, I believe. Currently she is being seen in the hospital and she looks relatively comfortable but for some pain of her left big toe which is still inflamed. Her left upper quadrant abdominal pain is all completely relieved. Past Medical History Cardiac Medical History: Reports: Hyperlipidemia Denies: Atrial Fibrillation, Coronary Artery Disease - HIGH CHOLESTEROL, DVT, Myocardial Infarction, Pulmonary Embolism Pulmonary Medical History: Reports: Asthma, Bronchitis, Chronic Obstructive Pulmonary Disease (COPD), Pneumonia - Several admissions within the last 12 months, Respiratory Failure Denies: Tuberculosis Neurological Medical History: Denies: Seizures Endocrine Medical History: Reports: Hypothyroidism Denies: Diabetes Mellitus Type 1, Diabetes Mellitus Type 2, Hyperthyroidism Renal/ Medical History: Reports: Chronic Kidney Disease Stage III Denies: End Stage Renal Disease GI Medical History: Denies: Cirrhosis, Crohn's Disease, Hepatitis, Ulcerative Colitis Musculoskeltal Medical History: Reports: Arthritis Denies: Fibromyalgia, Gout Skin Medical History: Denies: Eczema, Psoriasis Psychiatric Medical History: Reports: Depression Traumatic Medical History: Denies: Traumatic Brain Injury Infectious Medical History: Denies: HIV Past Surgical History Past Surgical History: Reports: Hysterectomy, Orthopedic Surgery - Wrist fracture repair, Tubal Ligation Social History Smoking Status: Former Smoker Frequency of Alcohol Use: None Hx Recreational Drug Use: No Drugs: None Hx Prescription Drug Abuse: No Family History Parental Family History Reviewed: Yes - Negative for ESRD Children Family History Reviewed: No Sibling(s) Family History Reviewed.: No Medication/Allergy Home Medications: Albuterol Sulfate [Proair HFA Inhalation Aerosol 8.5 gm MDI] 1 puff IH QIDP PRN 04/09/19 Albuterol Sulfate [Ventolin 0.083% Neb 2.5 mg/3 mL Ampul] 1 vial NEB RTQ4HP PRN 04/09/19 Alprazolam [Xanax 0.5 mg Tablet] 0.5 mg PO QID 04/09/19 Atorvastatin Calcium [Lipitor 20 mg Tablet] 20 mg PO DAILY 04/09/19 Azelastine 0.1 % Nasal [place] 1 spray NASL BID 04/09/19 Butorphanol Tartrate 1 spray NS DAILYP PRN 04/09/19 Dicyclomine HCl [Bentyl 10 mg Capsule] 10 mg PO TID 04/09/19 Diphenoxylate HCl/Atropine [Lomotil 2.5-0.025 mg Tablet] 1 each PO DAILYP PRN 04/09/19 Donepezil HCl [Aricept] 10 mg PO QHS 04/09/19 Duloxetine HCl [Cymbalta 30 mg Capsule.dr] 60 mg PO DAILY 04/09/19 Ergocalciferol (Vitamin D2) [Drisdol 50,000 unit (1.25MG) Capsule] 50,000 unit PO [id number] 04/09/19 Eszopiclone [Lunesta] 3 mg PO QHS 04/09/19 Fluoxetine HCl [Prozac 20 mg Capsule] 80 mg PO DAILY 04/09/19 Fluticasone Propionate [Flonase Nasal [place] 50 Mcg/[place] 16 gm] 1 spray NASL DAILY 04/09/19 Fluticasone/Umeclidin/Vilanter [Trelegy 100-62.5-25 Mcg Ellipta 14 Dose/Dpi] 1 each IH DAILY 04/09/19 Fondaparinux Sodium [Arixtra Inj 7.5 mg/0.6 ml Disp. Syrin] 7.5 mg SUBCUT DAILY 04/09/19 Levocetirizine Dihydrochloride [Xyzal] 5 mg PO QHS 04/09/19 Levothyroxine Sodium [Synthroid] 250 mcg PO Q6AM 04/09/19 Magnesium Oxide [Mag-Ox 400 mg Tablet] 400 mg PO DAILY 04/09/19 Menthol/Zinc Oxide [Calmoseptine Ointment] 1 applic TP TIDP PRN 04/09/19 Metolazone [Zaroxolyn 5 mg Tablet] 5 mg PO DAILY 04/09/19 Omeprazole 20 mg PO Q6AM 04/09/19 Oxycodone HCl [Oxy-Ir 5 mg Tablet] 15 mg PO Q6HP PRN 04/09/19 Pnv,Calcium 72/Iron/Folic Acid [ Vitamin Plus Low Iron] 1 each PO DAILY 04/09/19 Potassium Chloride [Klor-Con 10 Meq Capsule ER] 20 meq PO DAILY 04/09/19 Primidone [Mysoline] 50 mg PO Q8 04/09/19 Ramipril [Altace 2.5 mg Capsule] 2.5 mg PO QHS 04/09/19 Ropinirole HCl [Requip 0.25 mg Tablet] 0.25 mg PO QHS 04/09/19 Torsemide [Demadex 20 mg Tablet] 20 mg PO BID 04/09/19 Cyclobenzaprine HCl [Flexeril 10 mg Tablet] 10 mg PO BIDP PRN 04/20/19 Guaifenesin [Mucinex] 600 mg PO Q12 04/20/19 Allergies/Adverse Reactions: pregabalin [From Lyrica] Allergy (Unknown, Verified 03/08/19 22:52) trazodone HCl [From Desyrel] Allergy (Unknown, Verified 03/08/19 22:52) cephalexin monohydrate [From Keflex] Adverse Reaction (Verified 03/08/19 22:52) nausea, vomiting erythromycin base [Erythromycin Base] Adverse Reaction (Verified 03/08/19 22:52) nausea, vomiting gabapentin Adverse Reaction (Verified 03/08/19 22:52) Nausea guaifenesin [From Entex T] Adverse Reaction (Verified 03/08/19 22:52) Nausea pseudoephedrine [From Entex T] Adverse Reaction (Verified 03/08/19 22:52) Nausea Review of Systems Constitutional: PRESENT: anorexia, fatigue. ABSENT: chills, fever(s), headache(s), night sweats, weakness Nose, Mouth, and Throat: ABSENT: mouth pain, sore throat Cardiovascular: PRESENT: dyspnea on exertion, edema. ABSENT: chest pain, orthropnea, palpitations Respiratory: ABSENT: cough, dyspnea, hemoptysis Gastrointestinal: ABSENT: abdominal pain, bloating, coffee ground emesis, diarrhea, dysphagia, heartburn, hematemesis, hematochezia, melena, nausea, vomiting Genitourinary: ABSENT: dysuria, hematuria Musculoskeletal: PRESENT: joint swelling - Left big toe and painful. ABSENT: de formity Integumentary: ABSENT: lesions, pruritus, rash Neurological: ABSENT: abnormal gait, abnormal movements, abnormal speech, confusion, convulsions, focal weakness, frequent falls, syncope Psychiatric: ABSENT: suicidal ideation Endocrine: ABSENT: menstrual abnormalities, polydipsia Hematologic/Lymphatic: ABSENT: easy bleeding, easy bruising, lymphadenopathy Physical Exam Vital Signs: Temp Pulse Resp BP Pulse Ox 98.2 F 84 16 106/43 L 98 04/20/19 11:00 04/20/19 11:00 04/20/19 11:00 04/20/19 11:00 04/20/19 07:53 Intake & Output 04/19/19 04/20/19 04/21/19 06:59 06:59 06:59 Intake Total 1000 Balance 1000 Weight 107.1 kg General appearance: PRESENT: no acute distress Eye exam: PRESENT: EOMI, PERRLA Ear exam: PRESENT: normal external ear exam Mouth exam: PRESENT: moist, neck supple Neck exam: ABSENT: lymphadenopathy, meningismus, tenderness, thyromegaly, tracheal deviation Respiratory exam: PRESENT: clear to auscultation allison, decreased breath sounds. ABSENT: crackles Cardiovascular exam: PRESENT: +S1, +S2 GI/Abdominal exam: PRESENT: normal bowel sounds, soft. ABSENT: organomegaly, tenderness Extremities exam: PRESENT: pedal edema - She has trace to 1+ edema of the left leg with trace on the right leg.She has an inflamed left first metatarsal. Neurological exam: PRESENT: alert, awake, oriented to person Psychiatric exam: PRESENT: appropriate affect Skin exam: ABSENT: cyanosis, erythema, mottled, rash Results Laboratory Results: 04/20/19 08:00 04/19/19 22:15 04/19/19 04/19/19 04/19/19 14:19 14:19 14:19 WBC 8.0 RBC 3.15 L Hgb 9.4 L Hct 27.9 L MCV 89 MCH 29.7 MCHC 33.5 RDW 15.3 H Plt Count 176 Seg Neutrophils % 68.8 VBG pH VBG pCO2 VBG HCO3 VBG Base Excess Sodium Cancelled Potassium Cancelled Chloride Cancelled Carbon Dioxide Cancelled Anion Gap Cancelled BUN Cancelled Creatinine Cancelled Est GFR ( Amer) Cancelled Est GFR (Non-Af Amer) Cancelled Glucose Cancelled Lactic Acid 0.7 Calcium Cancelled Total Bilirubin Cancelled AST Cancelled Alkaline Phosphatase Cancelled Total Protein Cancelled Albumin Cancelled PTH Intact Urine Color Urine Appearance Urine pH Ur Specific [place] Urine Protein Urine Glucose (UA) Urine Ketones Urine Blood Urine Nitrite Ur Leukocyte Esterase Urine WBC (Auto) Urine RBC (Auto) 04/19/19 04/19/19 04/19/19 14:19 17:20 17:40 WBC RBC Hgb Hct MCV MCH MCHC RDW Plt Count Seg Neutrophils % VBG pH 7.36 VBG pCO2 42.3 VBG HCO3 23.4 VBG Base Excess -2.1 Sodium 134.5 L Potassium 3.6 Chloride 98 Carbon Dioxide 26 Anion Gap 11 BUN 37 H Creatinine 3.79 H Est GFR ( Amer) 14 L Est GFR (Non-Af Amer) Glucose 98 Lactic Acid Calcium 6.0 L* Total Bilirubin 0.4 AST 26 Alkaline Phosphatase 76 Total Protein 6.5 Albumin 3.3 L PTH Intact Urine Color BORIS Urine Appearance SLIGHTLY-CLOUDY Urine pH 5.0 Ur Specific [place] 1.015 Urine Protein NEGATIVE Urine Glucose (UA) NEGATIVE Urine Ketones NEGATIVE Urine Blood NEGATIVE Urine Nitrite NEGATIVE Ur Leukocyte Esterase NEGATIVE Urine WBC (Auto) 5 Urine RBC (Auto) 1 04/19/19 04/20/19 04/20/19 22:15 05:04 08:00 WBC Cancelled 7.3 RBC Cancelled 2.75 L Hgb Cancelled 8.2 L Hct Cancelled 24.2 L MCV Cancelled 88 MCH Cancelled 29.8 MCHC Cancelled 33.8 RDW Cancelled 15.2 H Plt Count Cancelled 141 L Seg Neutrophils % Cancelled 76.1 VBG pH VBG pCO2 VBG HCO3 VBG Base Excess Sodium 135.4 L Potassium 3.4 L Chloride 98 Carbon Dioxide 26 Anion Gap 11 BUN 37 H Creatinine 3.34 H Est GFR ( Amer) 17 L Est GFR (Non-Af Amer) Glucose 99 Lactic Acid Calcium 6.2 L* Total Bilirubin AST Alkaline Phosphatase Total Protein Albumin PTH Intact Urine Color Urine Appearance Urine pH Ur Specific [place] Urine Protein Urine Glucose (UA) Urine Ketones Urine Blood Urine Nitrite Ur Leukocyte Esterase Urine WBC (Auto) Urine RBC (Auto) 04/20/19 09:30 WBC RBC Hgb Hct MCV MCH MCHC RDW Plt Count Seg Neutrophils % VBG pH VBG pCO2 VBG HCO3 VBG Base Excess Sodium Potassium Chloride Carbon Dioxide Anion Gap BUN Creatinine Est GFR ( Amer) Est GFR (Non-Af Amer) Glucose Lactic Acid Calcium Total Bilirubin AST Alkaline Phosphatase Total Protein Albumin PTH Intact 274.7 H Urine Color Urine Appearance Urine pH Ur Specific [place] Urine Protein Urine Glucose (UA) Urine Ketones Urine Blood Urine Nitrite Ur Leukocyte Esterase Urine WBC (Auto) Urine RBC (Auto) 04/19/19 04/19/19 04/19/19 14:19 14:19 17:20 Creatine Kinase Cancelled 93 CK-MB (CK-2) Cancelled Troponin I Cancelled 04/19/19 04/19/19 17:20 22:15 Creatine Kinase CK-MB (CK-2) 0.50 Troponin I 0.012 0.015 Impressions: Chest X-Ray 04/19/19 13:36 IMPRESSION: Less basilar and right upper lobe opacities. No improvement over the previous study. Abdomen CT 04/19/19 16:04 IMPRESSION: No acute findings. No findings to explain history of left upper quadrant pain Assessment & Plan - Diagnosis (1) Acute on chronic renal failure Qualifiers: Acute renal failure type: unspecified Chronic kidney disease stage: stage 3 (moderate) Qualified Code(s): N17.9 - Acute kidney failure, unspecified; N18.3 - Chronic kidney disease, stage 3 (moderate) Plan: She is hypotensive on presentation with JANET. Unsure of the exact etiology of her hypotension. She does not show any features to indicate sepsis and her only antihypertensive was a low-dose of ramipril 2.5 mg. She is asymptomatic. We will start her on IV fluids and monitor. Has indwelling Rodriguez catheter which is draining well. Check renal ultrasound. (2) Hypotension Qualifiers: Hypotension type: unspecified hypotension type Qualified Code(s): I95.9 - Hypotension, unspecified Plan: Unsure the exact etiology. Currently asymptomatic. She does not show any features of sepsis. No indications of her acute VA features to indicate [place]'s. She has been yoo cultured. Start on IV fluids and monitor. (3) COPD (chronic obstructive pulmonary disease) Qualifiers: Chronic bronchitis type: unspecified Plan: As per Dr. Kauffman. (4) Hypocalcemia Plan: This is something new. I am also not sure if old baseline CKD's which is stage II/III is responsible for the PTH in the 3-400 range. She has got hypokalemia and hypomagnesemia which could induce her hypercalcemia but PTH level should be not so high/normal. And in secondary hyperparathyroidism you do see a high PTH but usually calcium levels are not this low. Therefore we will check work-up for vitamin D deficiency and other causes including rare causes of vitamin D resistance/ PTH resistance and is very unusual.She has been administered IV calcium by Dr. Kauffman and I am going to leave it up to him to monitor calcium levels and monitor for tetany. (5) Hypomagnesemia Plan: Will check stat levels. (6) Hypothyroidism (acquired) Plan: On replacements. (7) Pneumonia Qualifiers: Pneumonia type: due to unspecified organism Laterality: bilateral Lung location: lower lobe of lung Qualified Code(s): J18.1 - Lobar pneumonia, unspecified organism Plan: Apparent history of chronic persistent pneumonia versus aspiration. (8) Cerebral vascular disease Plan: And also history of DVT. Currently on Arixtra. (9) Acute gout Plan: Will treat with colchicine. Checking uric acid at this level is going to be erroneous and needs to be checked later.
[2019-04-20] MEDS: NORMAL SALINE 1000 ML 1,000 ML IV PRN (12:53)
[2019-04-20] MEDS: COLCHICINE 0.6 MG TABLET PO SCH ×2 (12:53→21:53)
[2019-04-20] MEDS ORDERED: MAGNESIUM OXIDE 400 MG TABLET PO ONE (13:00)
[2019-04-20] MEDS: FLUTICASONE NASAL SPRAY 50 MCG/SPRY 120 SPRAY/16 GM NASL SCH (14:12)
--- NOTE | 2019-04-20 18:14 | PDOC H&P ---
History of Present Illness Admission Date/PCP: 04/19/19 22:45 JIN KAUFFMAN MD History of Present Illness: LEATHA ATKINS is a 63 year old female,She was just discharged on 04/16/2019, roughly 4 days ago, she came to emergency room for evaluation of acute gout of the left foot, left upper quadrant abdominal pain, emergency room she was hypotensive, blood work demonstrated serum creatinine 3.7, because of this constellation of signs and symptoms hospital admission was advised. Past Medical History Cardiac Medical History: Reports: Congestive Heart Failure, Hyperlipidema, Hypertension Pulmonary Medical History: Reports: Asthma, Bronchitis, Chronic Obstructive Pulmonary Disease (COPD), Pneumonia - Several admissions within the last 12 months, Respiratory Failure Endocrine Medical History: Reports: Hypothyroidism Musculoskeltal Medical History: Reports: Arthritis Psychiatric Medical History: Reports: Depression Traumatic Medical History: Denies: Traumatic Brain Injury Hematology: Reports: Anemia Past Surgical History Past Surgical History: Reports: Hysterectomy, Orthopedic Surgery - Wrist fracture repair, Tubal Ligation Social History Smoking Status: Former Smoker Frequency of Alcohol Use: None Hx Recreational Drug Use: No Drugs: None Hx Prescription Drug Abuse: No Family History Family History: CAD, Hypertension Parental Family History Reviewed: Yes Children Family History Reviewed: Yes Sibling(s) Family History Reviewed.: Yes Medication/Allergy Home Medications: Azelastine 0.1 % Nasal [place] 1 spray NASL BID 04/09/19 RX: Albuterol Sulfate [Proair HFA Inhalation Aerosol 8.5 gm MDI] 1 puff IH QIDP PRN 04/09/19 RX: Albuterol Sulfate [Ventolin 0.083% Neb 2.5 mg/3 mL Ampul] 1 vial NEB RTQ4HP PRN 04/09/19 RX: Alprazolam [Xanax 0.5 mg Tablet] 0.5 mg PO QID 04/09/19 RX: Atorvastatin Calcium [Lipitor 20 mg Tablet] 20 mg PO DAILY 04/09/19 RX: Butorphanol Tartrate 1 spray NS DAILYP PRN 04/09/19 RX: Dicyclomine HCl [Bentyl 10 mg Capsule] 10 mg PO TID 04/09/19 RX: Diphenoxylate HCl/Atropine [Lomotil 2.5-0.025 mg Tablet] 1 each PO DAILYP PRN 04/09/19 RX: Donepezil HCl [Aricept] 10 mg PO QHS 04/09/19 RX: Duloxetine HCl [Cymbalta 30 mg Capsule.dr] 60 mg PO DAILY 04/09/19 RX: Ergocalciferol (Vitamin D2) [Drisdol 50,000 unit (1.25MG) Capsule] 50,000 unit PO [id number] 04/09/19 RX: Eszopiclone [Lunesta] 3 mg PO QHS 04/09/19 RX: Fluoxetine HCl [Prozac 20 mg Capsule] 80 mg PO DAILY 04/09/19 RX: Fluticasone Propionate [Flonase Nasal [place] 50 Mcg/[place] 16 gm] 1 spray NASL DAILY 04/09/19 RX: Fluticasone/Umeclidin/Vilanter [Trelegy 100-62.5-25 Mcg Ellipta 14 Dose/Dpi] 1 each IH DAILY 04/09/19 RX: Fondaparinux Sodium [Arixtra Inj 7.5 mg/0.6 ml Disp. Syrin] 7.5 mg SUBCUT DAILY 04/09/19 RX: Levocetirizine Dihydrochloride [Xyzal] 5 mg PO QHS 04/09/19 RX: Levothyroxine Sodium [Synthroid] 250 mcg PO Q6AM 04/09/19 RX: Magnesium Oxide [Mag-Ox 400 mg Tablet] 400 mg PO DAILY 04/09/19 RX: Menthol/Zinc Oxide [Calmoseptine Ointment] 1 applic TP TIDP PRN 04/09/19 RX: Metolazone [Zaroxolyn 5 mg Tablet] 5 mg PO DAILY 04/09/19 RX: Omeprazole 20 mg PO Q6AM 04/09/19 RX: Oxycodone HCl [Oxy-Ir 5 mg Tablet] 15 mg PO Q6HP PRN 04/09/19 RX: Pnv,Calcium 72/Iron/Folic Acid [ Vitamin Plus Low Iron] 1 each PO DAILY 04/09/19 RX: Potassium Chloride [Klor-Con 10 Meq Capsule ER] 20 meq PO DAILY 04/09/19 RX: Primidone [Mysoline] 50 mg PO Q8 04/09/19 RX: Ramipril [Altace 2.5 mg Capsule] 2.5 mg PO QHS 04/09/19 RX: Ropinirole HCl [Requip 0.25 mg Tablet] 0.25 mg PO QHS 04/09/19 RX: Torsemide [Demadex 20 mg Tablet] 20 mg PO BID 04/09/19 Cyclobenzaprine HCl [Flexeril 10 mg Tablet] 10 mg PO BIDP PRN 04/20/19 Guaifenesin [Mucinex] 600 mg PO Q12 04/20/19 Allergies/Adverse Reactions: pregabalin [From Lyrica] Allergy (Unknown, Verified 03/08/19 22:52) trazodone HCl [From Desyrel] Allergy (Unknown, Verified 03/08/19 22:52) cephalexin monohydrate [From Keflex] Adverse Reaction (Verified 03/08/19 22:52) nausea, vomiting erythromycin base [Erythromycin Base] Adverse Reaction (Verified 03/08/19 22:52) nausea, vomiting gabapentin Adverse Reaction (Verified 03/08/19 22:52) Nausea guaifenesin [From Entex T] Adverse Reaction (Verified 03/08/19 22:52) Nausea pseudoephedrine [From Entex T] Adverse Reaction (Verified 03/08/19 22:52) Nausea Review of Systems Constitutional: ABSENT: chills, fever(s), headache(s), weight gain, weight loss Eyes: ABSENT: visual disturbances Ears: ABSENT: hearing changes Cardiovascular: ABSENT: chest pain, dyspnea on exertion, edema, orthropnea, palpitations Respiratory: ABSENT: cough, hemoptysis Gastrointestinal: PRESENT: abdominal pain. ABSENT: constipation, diarrhea, hematemesis, hematochezia, nausea, vomiting Genitourinary: ABSENT: dysuria, hematuria Musculoskeletal: PRESENT: joint swelling Integumentary: ABSENT: rash, wounds Neurological: ABSENT: abnormal gait, abnormal speech, confusion, dizziness, focal weakness, syncope Psychiatric: ABSENT: anxiety, depression, homidical ideation, suicidal ideation Endocrine: ABSENT: cold intolerance, heat intolerance, menstrual abnormalities, polydipsia, polyuria Hematologic/Lymphatic: ABSENT: easy bleeding, easy bruising, lymphadenopathy Physical Exam Vital Signs: Temp Pulse Resp BP Pulse Ox 98.1 F 90 17 100/80 96 04/20/19 15:06 04/20/19 15:06 04/20/19 15:06 04/20/19 15:06 04/20/19 15:06 Intake & Output 04/19/19 04/20/19 04/21/19 06:59 06:59 06:59 Intake Total 1000 1043 Output Total 400 Balance 1000 643 Weight 107.1 kg General appearance: PRESENT: no acute distress Head exam: PRESENT: atraumatic, normocephalic Eye exam: PRESENT: conjunctiva pink, EOMI, PERRLA Ear exam: PRESENT: normal external ear exam Mouth exam: PRESENT: moist, tongue midline Neck exam: PRESENT: full ROM Respiratory exam: PRESENT: clear to auscultation allison Cardiovascular exam: PRESENT: RRR, +S1, +S2 Vascular exam: PRESENT: normal capillary refill GI/Abdominal exam: PRESENT: normal bowel sounds, soft Rectal exam: PRESENT: deferred Extremities exam: PRESENT: pedal edema - Erythema of the left foot Neurological exam: PRESENT: alert, CN II-XII grossly intact Skin exam: PRESENT: dry, intact, warm Results Laboratory Results: 04/20/19 08:00 04/19/19 22:15 04/19/19 04/19/19 04/20/19 17:40 22:15 05:04 WBC Cancelled RBC Cancelled Hgb Cancelled Hct Cancelled MCV Cancelled MCH Cancelled MCHC Cancelled RDW Cancelled Plt Count Cancelled Seg Neutrophils % Cancelled Sodium 135.4 L Potassium 3.4 L Chloride 98 Carbon Dioxide 26 Anion Gap 11 BUN 37 H Creatinine 3.34 H Est GFR ( Amer) 17 L Glucose 99 Calcium 6.2 L* Phosphorus Magnesium PTH Intact Urine Color BORIS Urine Appearance SLIGHTLY-CLOUDY Urine pH 5.0 Ur Specific [place] 1.015 Urine Protein NEGATIVE Urine Glucose (UA) NEGATIVE Urine Ketones NEGATIVE Urine Blood NEGATIVE Urine Nitrite NEGATIVE Ur Leukocyte Esterase NEGATIVE Urine WBC (Auto) 5 Urine RBC (Auto) 1 04/20/19 04/20/19 04/20/19 08:00 09:30 09:30 WBC 7.3 RBC 2.75 L Hgb 8.2 L Hct 24.2 L MCV 88 MCH 29.8 MCHC 33.8 RDW 15.2 H Plt Count 141 L Seg Neutrophils % 76.1 Sodium Potassium Chloride Carbon Dioxide Anion Gap BUN Creatinine Est GFR ( Amer) Glucose Calcium Phosphorus 5.0 H Magnesium 0.8 L* PTH Intact 274.7 H Urine Color Urine Appearance Urine pH Ur Specific [place] Urine Protein Urine Glucose (UA) Urine Ketones Urine Blood Urine Nitrite Ur Leukocyte Esterase Urine WBC (Auto) Urine RBC (Auto) 04/19/19 04/19/19 04/19/19 14:19 14:19 17:20 Creatine Kinase Cancelled 93 CK-MB (CK-2) Cancelled Troponin I Cancelled 04/19/19 04/19/19 17:20 22:15 Creatine Kinase CK-MB (CK-2) 0.50 Troponin I 0.012 0.015 Impressions: Chest X-Ray 04/19/19 13:36 IMPRESSION: Less basilar and right upper lobe opacities. No improvement over the previous study. Abdomen CT 04/19/19 16:04 IMPRESSION: No acute findings. No findings to explain history of left upper quadrant pain Assessment & Plan - Diagnosis (1) Acute kidney injury Is this a current diagnosis for this admission?: Yes Plan: She has history of CKD, she had acute kidney injury probably related to hemodynamic factors, hydrate with fluid . (2) Acute gout of left foot Qualifiers: Gout etiology: unspecified cause Qualified Code(s): M10.9 - Gout, unspecified (3) Hypotension Qualifiers: Hypotension type: unspecified hypotension type Qualified Code(s): I95.9 - Hypotension, unspecified Is this a current diagnosis for this admission?: Yes
[2019-04-20] MEDS: ZOLPIDEM TARTRATE 5 MG TABLET PO SCH (21:52)
[2019-04-20] MEDS: CETIRIZINE 5 MG TABLET PO SCH (21:52)
[2019-04-20] MEDS: ATORVASTATIN CALCIUM 20 MG TABLET PO SCH (21:53)
[2019-04-20] MEDS ORDERED: RAMIPRIL 2.5 MG CAPSULE PO SCH (22:00)
[2019-04-21] MEDS: OXYCODONE HCL IR 5 MG TABLET PO PRN ×3 (02:06→16:13)
[2019-04-21] MEDS: NORMAL SALINE 1000 ML 1,000 ML IV PRN ×2 (02:09→17:42)
[2019-04-21] MEDS ORDERED: ONDANSETRON 4 MG TAB.RAPDIS ONE (03:08)
[2019-04-21] MEDS: ONDANSETRON 4 MG TAB.RAPDIS PO PRN ×2 (03:20→17:49)
[2019-04-21 04:46] LABS: ABSOLUTE EOSINOPHILS # (AUTO) 0.1 10^3/uL (0.0-0.6); ABSOLUTE LYMPHOCYTES (AUTO) 0.9 10^3/uL (0.5-4.7); ABSOLUTE MONOCYTES (AUTO) 0.7 10^3/uL (0.1-1.4); ABSOLUTE NEUT (AUTO) 5.1 10^3/uL (1.7-8.2); BASOPHILS % (AUTO) 0.3 % (0-2); EOSINOPHILS % (AUTO) 1.6 % (0-6); HEMATOCRIT 24.3 % (36.0-47.0); HEMOGLOBIN 8.3 g/dL (12.0-15.5); LYMPHOCYTES % (AUTO) 13.7 % (13-45); MEAN CORPUSCULAR HEMOGLOBIN 30.3 pg (27.0-33.4); MEAN CORPUSCULAR HGB CONC 34.3 g/dL (32.0-36.0); MEAN CORPUSCULAR VOLUME 88 fl (80-97); MONOCYTES % (AUTO) 10.7 % (3-13); PLATELET COUNT 151 10^3/uL (150-450); RED BLOOD COUNT 2.75 10^6/uL (3.72-5.28); RED CELL DISTRIBUTION WIDTH 15.2 % (11.5-14.0); SEGMENTED NEUTROPHILS % (AUTO) 73.7 % (42-78); TOTAL CELLS COUNTED % (AUTO) 100 %; WHITE BLOOD COUNT 6.9 10^3/uL (4.0-10.5)
[2019-04-21 05:02] LABS: ANION GAP 8 (5-19); BLOOD UREA NITROGEN 29 mg/dL (7-20); CARBON DIOXIDE 26 mmol/L (22-30); CHLORIDE 104 mmol/L (98-107); GLUCOSE 114 mg/dL (75-110); POTASSIUM 3.4 mmol/L (3.6-5.0)
[2019-04-21 05:14] LABS: CALCIUM 6.2 mg/dL (8.4-10.2)
[2019-04-21] MEDS: PRIMIDONE 50 MG TABLET PO SCH ×3 (06:32→21:34)
[2019-04-21] MEDS: LEVOTHYROXINE SODIUM 0.1 MG TABLET PO SCH (06:32)
[2019-04-21] MEDS: LEVOTHYROXINE SODIUM 0.15 MG TABLET PO SCH (06:32)
[2019-04-21] MEDS: PANTOPRAZOLE SODIUM 20 MG TABLET.DR PO SCH (06:32)
[2019-04-21] MEDS ORDERED: MAGNESIUM SULFATE INJ 8 MEQ/2 ML IV ONE (07:46)
[2019-04-21] MEDS ORDERED: MAGNESIUM SULFATE/D5W 1 GM/100 ML RTUPB IV ONE (08:30)
[2019-04-21] MEDS: POTASSIUM CHLORIDE 10 MEQ CAPSULE.ER PO SCH (09:47)
[2019-04-21] MEDS: DONEPEZIL HCL 5 MG TABLET PO SCH (09:47)
[2019-04-21] MEDS: FLUOXETINE HCL 20 MG CAPSULE PO SCH (09:47)
[2019-04-21] MEDS: COLCHICINE 0.6 MG TABLET PO SCH ×2 (09:47→21:34)
[2019-04-21] MEDS: ALPRAZOLAM 0.5 MG TABLET PO SCH ×4 (09:48→21:34)
[2019-04-21] MEDS: PRENATAL VITAMIN W DHA CAPSULE PO SCH (09:48)
[2019-04-21] MEDS: CALCIUM CARBONATE 500 MG TABLET PO SCH ×2 (09:48→17:38)
[2019-04-21] MEDS: MAGNESIUM OXIDE 400 MG TABLET PO SCH (09:48)
[2019-04-21] MEDS: FLUTICASONE/UMECLIDIN/VILANTER 100-62.5-25 MCG/DOSE IH SCH (09:48)
[2019-04-21] MEDS: FLUTICASONE NASAL SPRAY 50 MCG/SPRY 120 SPRAY/16 GM NASL SCH (09:49)
[2019-04-21] MEDS: ROPINIROLE HCL 0.25 MG TABLET PO SCH ×2 (09:49→17:39)
[2019-04-21 14:57] LABS: VITAMIN D 1,25 DIHYDROXY 27.7 pg/mL (19.9-79.3)
[2019-04-21] MEDS ORDERED: CALCIUM GLUCONATE 1000 MG/10 ML INJ IV ONE ×2 (17:30→20:00)
--- NOTE | 2019-04-21 19:00 | PDOC PROGRESS REPORT ---
Subjective Progress Note for:: 04/21/19 Subjective:: Patient seen by the bedside, kidney function improving, She probably could be discharged home in the morning Reason For Visit: ACUTE KIDNEY INJURY,MULTIPLE HOSPITAL ADMISSION Physical Exam Vital Signs: Temp Pulse Resp BP Pulse Ox 97.7 F 85 18 93/40 L 100 04/21/19 14:52 04/21/19 14:52 04/21/19 14:52 04/21/19 14:52 04/21/19 14:52 Intake & Output 04/20/19 04/21/19 04/22/19 06:59 06:59 06:59 Intake Total 1000 2092 1620 Output Total 800 Balance 1000 1292 1620 Weight 107.1 kg 110.8 kg General appearance: PRESENT: no acute distress Eye exam: PRESENT: PERRLA Respiratory exam: PRESENT: clear to auscultation allison Cardiovascular exam: PRESENT: +S1, +S2 Neurological exam: PRESENT: alert Results Laboratory Results: 04/21/19 04:09 04/21/19 04:09 04/21/19 04/21/19 04:09 04:09 WBC 6.9 RBC 2.75 L Hgb 8.3 L Hct 24.3 L MCV 88 MCH 30.3 MCHC 34.3 RDW 15.2 H Plt Count 151 Seg Neutrophils % 73.7 Sodium 138.3 Potassium 3.4 L Chloride 104 Carbon Dioxide 26 Anion Gap 8 BUN 29 H Creatinine 1.67 H Est GFR ( Amer) 37 L Glucose 114 H Calcium 6.2 L* 04/19/19 17:40 Catheterized Urine Urine Culture - Final NO GROWTH 2 DAYS 04/19/19 04/19/19 04/19/19 14:19 14:19 17:20 Creatine Kinase Cancelled 93 CK-MB (CK-2) Cancelled Troponin I Cancelled 04/19/19 04/19/19 17:20 22:15 Creatine Kinase CK-MB (CK-2) 0.50 Troponin I 0.012 0.015 Impressions: Chest X-Ray 04/19/19 13:36 IMPRESSION: Less basilar and right upper lobe opacities. No improvement over the previous study. Abdomen CT 04/19/19 16:04 IMPRESSION: No acute findings. No findings to explain history of left upper quadrant pain Assessment & Plan - Diagnosis (1) Acute kidney injury Is this a current diagnosis for this admission?: Yes (2) Acute gout of left foot Qualifiers: Gout etiology: unspecified cause Qualified Code(s): M10.9 - Gout, unspecified Is this a current diagnosis for this admission?: Yes (3) Hypotension Qualifiers: Hypotension type: unspecified hypotension type Qualified Code(s): I95.9 - Hypotension, unspecified Is this a current diagnosis for this admission?: Yes
--- NOTE | 2019-04-21 19:07 | PDOC PROGRESS REPORT ---
Subjective Progress Note for:: 04/21/19 Reason For Visit: Generally feeling better than yesterday. She still has some left upper quadrant pain nonspecific. She says the pain in her left big toe is also improved but still there. No complaints of any chest pain or shortness of breath. No complaints of any fever or chills. Labs and medications were reviewed with her which shows improved creatinine but low magnesium of 0.8 and calcium still low at 6.2. She got IV calcium yesterday. No symptoms to indicate tetany. Discussed patient with treating nurse on the floor. Physical Exam Vital Signs: Temp Pulse Resp BP Pulse Ox 97.7 F 85 18 93/40 L 100 04/21/19 14:52 04/21/19 14:52 04/21/19 14:52 04/21/19 14:52 04/21/19 14:52 Intake & Output 04/20/19 04/21/19 04/22/19 06:59 06:59 06:59 Intake Total 1000 2092 1620 Output Total 800 Balance 1000 1292 1620 Weight 107.1 kg 110.8 kg General appearance: PRESENT: no acute distress Respiratory exam: PRESENT: clear to auscultation allison. ABSENT: crackles Cardiovascular exam: PRESENT: +S1, +S2 GI/Abdominal exam: PRESENT: normal bowel sounds, soft. ABSENT: organomegaly, tenderness Extremities exam: ABSENT: pedal edema Neurological exam: PRESENT: alert, awake, oriented to person, oriented to place Psychiatric exam: PRESENT: appropriate affect Skin exam: ABSENT: erythema, mottled, rash Results Laboratory Results: 04/21/19 04:09 04/21/19 04:09 04/21/19 04/21/19 04:09 04:09 WBC 6.9 RBC 2.75 L Hgb 8.3 L Hct 24.3 L MCV 88 MCH 30.3 MCHC 34.3 RDW 15.2 H Plt Count 151 Seg Neutrophils % 73.7 Sodium 138.3 Potassium 3.4 L Chloride 104 Carbon Dioxide 26 Anion Gap 8 BUN 29 H Creatinine 1.67 H Est GFR ( Amer) 37 L Glucose 114 H Calcium 6.2 L* 04/19/19 17:40 Catheterized Urine Urine Culture - Final NO GROWTH 2 DAYS 04/19/19 04/19/19 04/19/19 14:19 14:19 17:20 Creatine Kinase Cancelled 93 CK-MB (CK-2) Cancelled Troponin I Cancelled 04/19/19 04/19/19 17:20 22:15 Creatine Kinase CK-MB (CK-2) 0.50 Troponin I 0.012 0.015 Impressions: Chest X-Ray 04/19/19 13:36 IMPRESSION: Less basilar and right upper lobe opacities. No improvement over the previous study. Abdomen CT 04/19/19 16:04 IMPRESSION: No acute findings. No findings to explain history of left upper quadrant pain Assessment & Plan - Diagnosis (1) Acute on chronic renal failure Qualifiers: Acute renal failure type: unspecified Chronic kidney disease stage: stage 3 (moderate) Qualified Code(s): N17.9 - Acute kidney failure, unspecified; N18.3 - Chronic kidney disease, stage 3 (moderate) Plan: Nonoliguric. Improving renal numbers with creatinine down to 1.6 from peak of 3.7. Continue present lines of management. (2) Hypotension Qualifiers: Hypotension type: unspecified hypotension type Qualified Code(s): I95.9 - Hypotension, unspecified Plan: Continue IV fluids even though she is clinically better hydrated. We will also start on low-dose of Midodrin as we check her cortisol which I do not think is going to be abnormal given her presentation and chemistries. (3) COPD (chronic obstructive pulmonary disease) Qualifiers: Chronic bronchitis type: unspecified Plan: As per Dr. Rojas. (4) Hypocalcemia Plan: Persistently low. Normal vitamin D and D 3. PTH is come down from a peak of close to 500 in August 23 now 200+.Reviewing her calcium for the last 1 year or so she is always had rather lowish calcium. I am unsure to the exact etiology of the low calcium given her normal vitamin D levels. Obviously her PTH is responded to the low calcium levels by being high. I do not believe this is sec ondary hyperparathyroidism and will therefore resist using calcitriol or other vitamin D3 agents. I would continue on IV calcium and magnesium replacement and see the response to the PTH.She may respond to p.o. calcium but otherwise post discharge she may need IV infusions as an outpatient twice a week or so. The same may apply for magnesium replacements as well as she is rather intolerant to p.o. magnesium. (5) Hypomagnesemia Plan: Critically low. She is intolerant to p.o. magnesium beyond 400 mg which gives her diarrhea. Therefore will start on IV magnesium replacements daily and monitor response. As mentioned earlier as she cannot tolerate more than 400 mg of magnesium and so she may need IV magnesium infusions twice a week or so to maintain her magnesium replacements. I would be very cautious in using metolazone in this patient in the future. (6) Hypothyroidism (acquired) Plan: On replacements (7) Pneumonia Qualifiers: Pneumonia type: due to unspecified organism Laterality: bilateral Lung location: lower lobe of lung Qualified Code(s): J18.1 - Lobar pneumonia, unspecified organism Plan: As per Dr. Rojas. Active versus chronic interstitial changes on chest x-ray and CT scan. (8) Cerebral vascular disease Plan: History of. Stable now. (9) Acute gout Plan: Improving to colchicine twice daily. Monitor. Check uric acid once this acute crisis resolved.
[2019-04-21] MEDS: MIDODRINE HCL 5 MG TABLET PO SCH (21:32)
[2019-04-21] MEDS: ZOLPIDEM TARTRATE 5 MG TABLET PO SCH (21:33)
[2019-04-21] MEDS: HEPARIN SOD (PORCINE) 5,000 UNIT/ML 1 ML VIAL SUBCUT SCH (21:34)
[2019-04-21] MEDS: ATORVASTATIN CALCIUM 20 MG TABLET PO SCH (21:34)
[2019-04-21] MEDS: CETIRIZINE 5 MG TABLET PO SCH (21:34)
[2019-04-22] MEDS: OXYCODONE HCL IR 5 MG TABLET PO PRN ×2 (01:40→10:12)
[2019-04-22] MEDS: ONDANSETRON 4 MG TAB.RAPDIS PO PRN (01:40)
[2019-04-22 04:42] LABS: ABSOLUTE EOSINOPHILS # (AUTO) 0.1 10^3/uL (0.0-0.6); ABSOLUTE LYMPHOCYTES (AUTO) 0.9 10^3/uL (0.5-4.7); ABSOLUTE MONOCYTES (AUTO) 0.5 10^3/uL (0.1-1.4); ABSOLUTE NEUT (AUTO) 3.1 10^3/uL (1.7-8.2); BASOPHILS % (AUTO) 0.3 % (0-2); EOSINOPHILS % (AUTO) 3.1 % (0-6); HEMATOCRIT 25.7 % (36.0-47.0); HEMOGLOBIN 8.6 g/dL (12.0-15.5); LYMPHOCYTES % (AUTO) 19.8 % (13-45); MEAN CORPUSCULAR HEMOGLOBIN 29.7 pg (27.0-33.4); MEAN CORPUSCULAR HGB CONC 33.2 g/dL (32.0-36.0); MEAN CORPUSCULAR VOLUME 89 fl (80-97); MONOCYTES % (AUTO) 10.5 % (3-13); PLATELET COUNT 164 10^3/uL (150-450); RED BLOOD COUNT 2.88 10^6/uL (3.72-5.28); SEGMENTED NEUTROPHILS % (AUTO) 66.3 % (42-78); TOTAL CELLS COUNTED % (AUTO) 100 %; WHITE BLOOD COUNT 4.7 10^3/uL (4.0-10.5)
[2019-04-22 05:08] LABS: ANION GAP 6 (5-19); BLOOD UREA NITROGEN 17 mg/dL (7-20); CALCIUM 7.3 mg/dL (8.4-10.2); CARBON DIOXIDE 27 mmol/L (22-30); CHLORIDE 109 mmol/L (98-107); GLUCOSE 105 mg/dL (75-110); POTASSIUM 3.8 mmol/L (3.6-5.0)
[2019-04-22] MEDS: HEPARIN SOD (PORCINE) 5,000 UNIT/ML 1 ML VIAL SUBCUT SCH (05:40)
[2019-04-22] MEDS: LEVOTHYROXINE SODIUM 0.15 MG TABLET PO SCH (05:40)
[2019-04-22] MEDS: LEVOTHYROXINE SODIUM 0.1 MG TABLET PO SCH (05:40)
[2019-04-22] MEDS: PANTOPRAZOLE SODIUM 20 MG TABLET.DR PO SCH (05:40)
[2019-04-22] MEDS: PRIMIDONE 50 MG TABLET PO SCH (05:40)
[2019-04-22] MEDS: NORMAL SALINE 1000 ML 1,000 ML IV PRN (05:42)
[2019-04-22] MEDS ORDERED: CALCIUM GLUCONATE 1000 MG/10 ML INJ IV ONE (06:00)
--- NOTE | 2019-04-22 08:36 | PDOC DISCHARGE SUMMARY ---
Impression - Admit/DC Date/PCP Admission Date/Primary Care Provider: 04/19/19 22:45 JIN KAUFFMAN MD Discharge Date: 04/22/19 - Discharge Diagnosis (1) Acute kidney injury Is this a current diagnosis for this admission?: Yes (3) Hypotension Is this a current diagnosis for this admission?: Yes (4) Hypocalcemia Is this a current diagnosis for this admission?: Yes (5) Secondary hyperparathyroidism Is this a current diagnosis for this admission?: Yes - Additional Information Referrals: JIN KAUFFMAN MD [Primary Care Provider] - 04/30/19 9:45 am Prescriptions: Calcium Carbonate [Calcium Carbonate 650 mg Tablet] 1 tab PO DAILY #1 bottle Colchicine [Colcrys 0.6 mg Tablet] 0.6 mg PO Q12 #30 tablet Home Medications: Albuterol Sulfate [Proair HFA Inhalation Aerosol 8.5 gm MDI] 1 puff IH QIDP PRN 04/09/19 Albuterol Sulfate [Ventolin 0.083% Neb 2.5 mg/3 mL Ampul] 1 vial NEB RTQ4HP PRN 04/09/19 Alprazolam [Xanax 0.5 mg Tablet] 0.5 mg PO QID 04/09/19 Atorvastatin Calcium [Lipitor 20 mg Tablet] 20 mg PO DAILY 04/09/19 Azelastine 0.1 % Nasal [place] 1 spray NASL BID 04/09/19 Donepezil HCl [Aricept] 10 mg PO QHS 04/09/19 Duloxetine HCl [Cymbalta 30 mg Capsule.dr] 60 mg PO DAILY 04/09/19 Ergocalciferol (Vitamin D2) [Drisdol 50,000 unit (1.25MG) Capsule] 50,000 unit PO [id number] 04/09/19 Eszopiclone [Lunesta] 3 mg PO QHS 04/09/19 Fluoxetine HCl [Prozac 20 mg Capsule] 80 mg PO DAILY 04/09/19 Fluticasone Propionate [Flonase Nasal [place] 50 Mcg/[place] 16 gm] 1 spray NASL DAILY 04/09/19 Fluticasone/Umeclidin/Vilanter [Trelegy 100-62.5-25 Mcg Ellipta 14 Dose/Dpi] 1 each IH DAILY 04/09/19 Fondaparinux Sodium [Arixtra Inj 7.5 mg/0.6 ml Disp. Syrin] 7.5 mg SUBCUT DAILY 04/09/19 Levocetirizine Dihydrochloride [Xyzal] 5 mg PO QHS 04/09/19 Levothyroxine Sodium [Synthroid] 250 mcg PO Q6AM 04/09/19 Magnesium Oxide [Mag-Ox 400 mg Tablet] 400 mg PO DAILY 04/09/19 Menthol/Zinc Oxide [Calmoseptine Ointment] 1 applic TP TIDP PRN 04/09/19 Omeprazole 20 mg PO Q6AM 04/09/19 Oxycodone HCl [Oxy-Ir 5 mg Tablet] 15 mg PO Q6HP PRN 04/09/19 Pnv,Calcium 72/Iron/Folic Acid [ Vitamin Plus Low Iron] 1 each PO DAILY 04/09/19 Potassium Chloride [Klor-Con 10 Meq Capsule ER] 20 meq PO DAILY 04/09/19 Primidone [Mysoline] 50 mg PO Q8 04/09/19 Ramipril [Altace 2.5 mg Capsule] 2.5 mg PO QHS 04/09/19 Cyclobenzaprine HCl [Flexeril 10 mg Tablet] 10 mg PO BIDP PRN 04/20/19 Guaifenesin [Mucinex] 600 mg PO Q12 04/20/19 Calcium Carbonate [Calcium Carbonate 650 mg Tablet] 1 tab PO DAILY #1 bottle 04/22/19 Colchicine [Colcrys 0.6 mg Tablet] 0.6 mg PO Q12 #30 tablet 04/22/19 Nystatin [Mycostatin Topical Powder 15 gm] 1 applic TP BIDP PRN bottle 04/22/19 History of Present Illiness History of Present Illness: LEATHA ATKINS is a 63 year old female,She was just discharged on 04/16/2019, roughly 4 days ago, she came to emergency room for evaluation of acute gout of the left foot, left upper quadrant abdominal pain, emergency room she was hypotensive, blood work demonstrated serum creatinine 3.7, because of this constellation of signs and symptoms hospital admission was advised. Hospital Course Hospital Course: Patient with multiple comorbid conditions, she was admitted for the management of acute gout arthropathy involving left foot, low blood pressure, acute kidney injury. The gout was treated with colchicine, the acute kidney injury was treated with IV fluid normal saline with shinto of normal kidney function, she also had hypocalcemia associated with secondary hyperparathyroidism, she has baseline chronic kidney disease stage III with associated hypocalcemia and secondary hyperparathyroidism. The calcium was corrected with intravenous calcium gluconate, she also had Midodrine For the blood pressure. Patient has optimized inpatient care she is stable enough for discharge, medication was adjusted. Be discharged home today. Physical Exam Vital Signs: Temp Pulse Resp BP Pulse Ox 98.2 F 92 20 133/76 H 100 04/22/19 07:45 04/22/19 07:45 04/22/19 07:45 04/22/19 07:45 04/22/19 07:45 Intake & Output 04/21/19 04/22/19 04/23/19 06:59 06:59 06:59 Intake Total 2092 2719 Output Total 800 0 Balance 1292 2719 Weight 110.8 kg 110.9 kg General appearance: PRESENT: no acute distress Eye exam: PRESENT: PERRLA Respiratory exam: PRESENT: chest wall tenderness Cardiovascular exam: PRESENT: +S1, +S2 GI/Abdominal exam: PRESENT: soft Neurological exam: PRESENT: alert, CN II-XII grossly intact Results Laboratory Results: WBC 4.7 10^3/uL (4.0-10.5) 04/22/19 04:00 RBC 2.88 10^6/uL (3.72-5.28) L 04/22/19 04:00 Hgb 8.6 g/dL (12.0-15.5) L 04/22/19 04:00 Hct 25.7 % (36.0-47.0) L 04/22/19 04:00 MCV 89 fl (80-97) 04/22/19 04:00 MCH 29.7 pg (27.0-33.4) 04/22/19 04:00 MCHC 33.2 g/dL (32.0-36.0) 04/22/19 04:00 RDW 15.0 % (11.5-14.0) H 04/22/19 04:00 Plt Count 164 10^3/uL (150-450) 04/22/19 04:00 Lymph % (Auto) 19.8 % (13-45) 04/22/19 04:00 Dukes % (Auto) 10.5 % (3-13) 04/22/19 04:00 Eos % (Auto) 3.1 % (0-6) 04/22/19 04:00 Baso % (Auto) 0.3 % (0-2) 04/22/19 04:00 Absolute Neuts (auto) 3.1 10^3/uL (1.7-8.2) 04/22/19 04:00 Absolute Lymphs (auto) 0.9 10^3/uL (0.5-4.7) 04/22/19 04:00 Absolute Monos (auto) 0.5 10^3/uL (0.1-1.4) 04/22/19 04:00 Absolute Eos (auto) 0.1 10^3/uL (0.0-0.6) 04/22/19 04:00 Absolute Basos (auto) 0.0 10^3/uL (0.0-0.2) 04/22/19 04:00 Seg Neutrophils % 66.3 % (42-78) 04/22/19 04:00 Platelet Estimate Cancelled 04/20/19 05:04 PT 15.5 SEC (11.4-15.4) H 04/19/19 14:19 INR 1.22 04/19/19 14:19 VBG pH 7.36 (7.30-7.42) 04/19/19 14:19 VBG pCO2 42.3 mmHg (35-63) 04/19/19 14:19 VBG HCO3 23.4 mmol/L (20-32) 04/19/19 14:19 VBG Base Excess -2.1 mmol/L 04/19/19 14:19 Sodium 142.1 mmol/L (137-145) 04/22/19 04:00 Potassium 3.8 mmol/L (3.6-5.0) 04/22/19 04:00 Chloride 109 mmol/L (98-107) H 04/22/19 04:00 Carbon Dioxide 27 mmol/L (22-30) 04/22/19 04:00 Anion Gap 6 (5-19) 04/22/19 04:00 BUN 17 mg/dL (7-20) 04/22/19 04:00 Creatinine 1.05 mg/dL (0.52-1.25) 04/22/19 04:00 Est GFR ( Amer) > 60 (>60) 04/22/19 04:00 Est GFR (Non-Af Amer) Cancelled 04/19/19 14:19 Est GFR (MDRD) Non-Af 53 (>60) L 04/22/19 04:00 Glucose 105 mg/dL (75-110) 04/22/19 04:00 POC Glucose 81 mg/dL (70-110) 04/19/19 17:23 Lactic Acid 0.7 mmol/L (0.7-2.1) 04/19/19 14:19 Calcium 7.3 mg/dL (8.4-10.2) L 04/22/19 04:00 Phosphorus 5.0 mg/dL (2.5-4.5) H 04/20/19 09:30 Magnesium 1.4 mg/dL (1.6-2.3) L 04/22/19 04:00 Total Bilirubin 0.4 mg/dL (0.2-1.3) 04/19/19 17:20 Direct Bilirubin 0.3 mg/dL (0.0-0.4) 04/19/19 17:20 Neonat Total Bilirubin Not Reportable 04/19/19 17:20 Neonat Direct Bilirubin Not Reportable 04/19/19 17:20 Neonat Indirect Bili Not Reportable 04/19/19 17:20 AST 26 U/L (14-36) 04/19/19 17:20 ALT 16 U/L (<35) 04/19/19 17:20 Alkaline Phosphatase 76 U/L (38-126) 04/19/19 17:20 Creatine Kinase 93 U/L (30-135) 04/19/19 17:20 CK-MB (CK-2) 0.50 ng/mL (<4.55) 04/19/19 17:20 Troponin I 0.015 ng/mL 04/19/19 22:15 Total Protein 6.5 g/dL (6.3-8.2) 04/19/19 17:20 Albumin 3.3 g/dL (3.5-5.0) L 04/19/19 17:20 EGFR Cancelled 04/19/19 14:19 Vitamin D 25-Hydroxy 25.3 ng/mL (14.7-68.3) 04/20/19 09:30 Vit D 1,25-Dihydroxy 27.7 pg/mL (19.9-79.3) 04/20/19 13:31 PTH Intact 274.7 pg/mL (10.0-65.0) H 04/20/19 09:30 Cortisol AM Sample 9.08 ug/dL (4.46-22.7) 04/22/19 04:00 Urine Color BORIS 04/19/19 17:40 Urine Appearance SLIGHTLY-CLOUDY 04/19/19 17:40 Urine pH 5.0 (5.0-9.0) 04/19/19 17:40 Ur Specific [place] 1.015 04/19/19 17:40 Urine Protein NEGATIVE mg/dL (NEGATIVE) 04/19/19 17:40 Urine Glucose (UA) NEGATIVE mg/dL (NEGATIVE) 04/19/19 17:40 Urine Ketones NEGATIVE mg/dL (NEGATIVE) 04/19/19 17:40 Urine Blood NEGATIVE (NEGATIVE) 04/19/19 17:40 Urine Nitrite NEGATIVE (NEGATIVE) 04/19/19 17:40 Urine Bilirubin NEGATIVE (NEGATIVE) 04/19/19 17:40 Urine Urobilinogen NEGATIVE mg/dL (<2.0) 04/19/19 17:40 Ur Leukocyte Esterase NEGATIVE (NEGATIVE) 04/19/19 17:40 Urine WBC (Auto) 5 /HPF 04/19/19 17:40 Urine RBC (Auto) 1 /HPF 04/19/19 17:40 U Hyaline Cast (Auto) 98 /LPF 04/19/19 17:40 Urine Bacteria (Auto) TRACE /HPF 04/19/19 17:40 Squamous Epi Cells Auto 2 /HPF 04/19/19 17:40 Urine Mucus (Auto) RARE /LPF 04/19/19 17:40 Urine Ascorbic Acid NEGATIVE (NEGATIVE) 04/19/19 17:40 Slides for Path Review Cancelled 04/20/19 05:04 04/19/19 04/19/19 04/19/19 14:19 17:20 22:15 CK-MB (CK-2) Cancelled 0.50 Troponin I Cancelled 0.012 0.015 Impressions: Chest X-Ray 04/19/19 13:36 IMPRESSION: Less basilar and right upper lobe opacities. No improvement over the previous study. Abdomen CT 04/19/19 16:04 IMPRESSION: No acute findings. No findings to explain history of left upper quadrant pain Stroke Is this a Stroke Patient?: No Stroke Pt being discharged on Anti-thrombolytic therapy?: No Reason(s) for not prescribing Anti-thrombolytic therapy:: Not indicated Stroke Pt being discharged on Anti-coagulation therapy?: No Reason(s) for not prescribing Anti-coagulation therapy:: Not indicated Stroke Pt being discharged on Statins?: No Reason(s) for not prescribing Statins therapy:: Not indicated Acute Heart Failure - Is this a Heart Failure Patient?: No c) Discharged on ARNI?: Yes
[2019-04-22 08:52] VITALS: BP 106/43
[2019-04-22] MEDS: MAGNESIUM OXIDE 400 MG TABLET PO SCH (10:11)
[2019-04-22] MEDS: PRENATAL VITAMIN W DHA CAPSULE PO SCH (10:11)
[2019-04-22] MEDS: POTASSIUM CHLORIDE 10 MEQ CAPSULE.ER PO SCH (10:11)
[2019-04-22] MEDS: CALCIUM CARBONATE 500 MG TABLET PO SCH (10:11)
[2019-04-22] MEDS: MIDODRINE HCL 5 MG TABLET PO SCH (10:11)
[2019-04-22] MEDS: FLUOXETINE HCL 20 MG CAPSULE PO SCH (10:11)
[2019-04-22] MEDS: COLCHICINE 0.6 MG TABLET PO SCH (10:11)
[2019-04-22] MEDS: DONEPEZIL HCL 5 MG TABLET PO SCH (10:11)
[2019-04-22] MEDS: ALPRAZOLAM 0.5 MG TABLET PO SCH (10:12)
[2019-04-22] MEDS: FLUTICASONE/UMECLIDIN/VILANTER 100-62.5-25 MCG/DOSE IH SCH (10:14)
[2019-04-22] MEDS: ROPINIROLE HCL 0.25 MG TABLET PO SCH (10:15)
[2019-04-22] MEDS: FLUTICASONE NASAL SPRAY 50 MCG/SPRY 120 SPRAY/16 GM NASL SCH (10:15)
[2019-04-23] MEDS ORDERED: INFLUENZA QUAD (6MOS+) 2019-20 VAC 0.5 ML SYR IM ONE (08:00)
[2019-04-26 08:23] LABS: PTH RELATED PEPTIDE <2.0 pmol/L (.)
== END 2019-04-22 11:40 | disposition home or self-care (01) | DRG 683 ==
LOC: ER 13:19 → EH 20:03 → 3N 21:55 → OBSVTOIN 22:45
PROVIDERS: ADMIT Internal Medicine; ATTEND Internal Medicine
DX: N17.9 Acute kidney failure, unspecified (principal); I13.0 Hypertensive heart and chronic kidney disease with heart failure and stage 1 through stage 4 chronic kidney disease, or unspecified chronic kidney disease; E83.51 Hypocalcemia; D63.1 Anemia in chronic kidney disease; I95.9 Hypotension, unspecified; I50.9 Heart failure, unspecified; M10.9 Gout, unspecified; N25.81 Secondary hyperparathyroidism of renal origin; N18.3 Chronic kidney disease, stage 3 (moderate); E87.6 Hypokalemia; E83.42 Hypomagnesemia; J44.9 Chronic obstructive pulmonary disease, unspecified; E03.9 Hypothyroidism, unspecified; F32.9 Major depressive disorder, single episode, unspecified; I67.9 Cerebrovascular disease, unspecified; R10.12 Left upper quadrant pain; E78.5 Hyperlipidemia, unspecified; M19.90 Unspecified osteoarthritis, unspecified site; Z79.01 Long term (current) use of anticoagulants; Z86.718 Personal history of other venous thrombosis and embolism; Z87.891 Personal history of nicotine dependence; Z88.6 Allergy status to analgesic agent; Z88.1 Allergy status to other antibiotic agents; Z88.8 Allergy status to other drugs, medicaments and biological substances; Z86.711 Personal history of pulmonary embolism; I25.2 Old myocardial infarction; I69.311 Memory deficit following cerebral infarction; Z82.49 Family history of ischemic heart disease and other diseases of the circulatory system
CPT/HCPCS: 36415; 51701; 71045; 74150; 80048; 80053; 81001; 82306; 82397; 82533; 82550; 82553; 82652; 82803; 82962; 83605; 83735; 83970; 84100; 84484; 85025; 85610; 87040; 87086; 93005; 93010; 93971; 96361; 96374; 99285; J0610; J3475; J3490; J7030; J7120; S0119

== ENCOUNTER 2019-04-22 18:27 | Emergency (ER) | payer MEDICARE, OTHER ==
--- NOTE | 2019-04-22 20:37 | RADIOLOGY REPORT (SQ) ---
CT BRAIN AND CERVICAL SPINE EXAM DATE: 04/22/2019 7:51 PM CDT HISTORY: Trauma. COMPARISON: None. TECHNIQUE: CT scan of the brain and cervical spine without IV contrast. This exam was performed according to our departmental dose-optimization program, which includes automated exposure control, adjustment of the mA and/or kV according to patient size and/or use of iterative reconstruction technique. FINDINGS: BRAIN: There are scattered areas of hypoattenuation within the periventricular white matter, which likely represent chronic microvascular ischemia. Old right basal ganglia lacunar infarct. No evidence of acute infarction, intracranial hemorrhage, extra-axial fluid collection, or midline shift. No air-fluid levels are seen in the paranasal sinuses to suggest acute sinusitis. No depressed skull fracture. CERVICAL SPINE: No acute cervical fracture or prevertebral soft tissue swelling. There is straightening of the normal cervical lordosis, which may be due to cervical collar, muscle spasm, or patient positioning. The facet joints are preserved. Mild multilevel degenerative disc disease throughout the cervical spine. No high-grade spinal canal stenosis. IMPRESSION: 1. No acute intracranial hemorrhage. 2. No acute fracture or subluxation of the cervical spine.
--- NOTE | 2019-04-22 22:03 | ER Document Report ---
ED Fall - General Chief Complaint: Fall Stated Complaint: FALL Time Seen by Provider: 04/22/19 19:51 Primary Care Provider: JIN KAUFFMAN MD [Primary Care Provider] - Follow up as needed Mode of Arrival: Medic Information source: Patient TRAVEL OUTSIDE OF THE [place] IN LAST 30 DAYS: No - HPI Notes: Patient is brought in by ambulance. Patient had a fall at home. Patient was discharged from the hospital this morning by Dr. Kauffman. Patient states that she has severe gout in her left foot which makes it hard for her to bear weight. She states when she was in the bathroom she lost her balance because of this and fell and now has some neck pain. The neck pain is posterior and central. It is moderate. It is constant. It is worse with movement and better without movement. It does radiate up and down her cervical spine. It is sharp. She denies any loss of consciousness. She denies any new arm or leg pain. No new abdomen or back pain. - Related data Allergies/Adverse Reactions: pregabalin [From Lyrica] Allergy (Unknown, Verified 03/08/19 22:52) trazodone HCl [From Desyrel] Allergy (Unknown, Verified 03/08/19 22:52) cephalexin monohydrate [From Keflex] Adverse Reaction (Verified 03/08/19 22:52) nausea, vomiting erythromycin base [Erythromycin Base] Adverse Reaction (Verified 03/08/19 22:52) nausea, vomiting gabapentin Adverse Reaction (Verified 03/08/19 22:52) Nausea guaifenesin [From Entex T] Adverse Reaction (Verified 03/08/19 22:52) Nausea pseudoephedrine [From Entex T] Adverse Reaction (Verified 03/08/19 22:52) Nausea Past Medical History - General Information source: Patient - Social History Smoking Status: Never Smoker Chew tobacco use (# tins/day): No Frequency of alcohol use: None Drug Abuse: None Family History: CAD, Hypertension Patient has suicidal ideation: No Patient has homicidal ideation: No - Past Medical History Cardiac Medical History: Reports: Hx Congestive Heart Failure, Hx Hypercholesterolemia, Hx Hypertension Denies: Hx Atrial Fibrillation, Hx Coronary Artery Disease - HIGH CHOLESTEROL, Hx DVT, Hx Heart Attack, Hx Pulmonary Embolism Pulmonary Medical History: Reports: Hx Asthma, Hx Bronchitis, Hx COPD, Hx Pneumonia - Several admissions within the last 12 months, Hx Respiratory Failure Denies: Hx Tuberculosis Neurological Medical History: Reports: Hx Cerebrovascular Accident - 7 YEARS AGO HAS "MEMORY ISSUES" "STROKE X4, last one 2005. Denies: Hx Seizures Endocrine Medical History: Reports: Hx Hypothyroidism. Denies: Hx Diabetes Mellitus Type 1, Hx Diabetes Mellitus Type 2, Hx Hyperthyroidism Renal/ Medical History: Reports: Hx Renal Insufficiency. Denies: Hx End Stage Renal Disease, Hx Peritoneal Dialysis GI Medical History: Denies: Hx Cirrhosis, Hx Crohn's Disease, Hx Hepatitis, Hx Ulcerative Colitis Musculoskeletal Medical History: Reports Hx Arthritis, Denies Hx Fibromyalgia, Denies Hx Gout Skin Medical History: Denies Hx Eczema, Denies Hx Psoriasis Psychiatric Medical History: Reports: Hx Depression Traumatic Medical History: Denies: Hx Traumatic Brain Injury Infectious Medical History: Denies: Hx Hepatitis, Hx HIV Past Surgical History: Reports: Hx Dilation and Curettage, Hx Hysterectomy, Hx Orthopedic Surgery - Wrist fracture repair, Hx Tubal Ligation - Immunizations Hx Diphtheria, Pertussis, Tetanus Vaccination: Yes Hx Pneumococcal Vaccination: 07/22/18 Review of Systems - Review of Systems Constitutional: Weakness. denies: Chills, Fever Cardiovascular: denies: Chest pain, Palpitations Respiratory: denies: Cough, Short of breath Gastrointestinal: denies: Abdominal pain Musculoskeletal: Gout, Joint pain. denies: Back pain -: Yes All other systems reviewed and negative Physical Exam - Vital signs Vitals: Resp 13 04/22/19 19:14 Interpretation: Normal - General General appearance: Appears well, Alert In distress: None - HEENT Head: Normocephalic, Atraumatic Eyes: Normal Pupils: PERRL Neck: Other - Patient has some mild diffuse posterior neck pain to palpation. No step-offs or deformities. - Respiratory Respiratory status: No respiratory distress Chest status: Nontender Breath sounds: Normal Chest palpation: Normal - Cardiovascular Rhythm: Regular Heart sounds: Normal auscultation Murmur: No - Abdominal Inspection: Normal Distension: No distension Bowel sounds: Normal Tenderness: Nontender Organomegaly: No organomegaly - Back Back: Normal, Nontender - Extremities General upper extremity: Normal inspection, Nontender, Normal color, Normal ROM, Normal temperature General lower extremity: Other - Patient has 1+ bilateral lower extremity pitting edema. Her left foot is tender diffusely to palpation consistent with her gout.. No: Aditya's sign - Neurological Neuro grossly intact: Yes Cognition: Normal Orientation: AAOx4 Meme Coma Scale Eye Opening: Spontaneous [place] Coma Scale Verbal: Oriented Meme Coma Scale Motor: Obeys Commands [place] Coma Scale Total: 15 Speech: Normal Motor strength normal: LUE, RUE, LLE, RLE Sensory: Normal - Psychological Associated symptoms: Normal affect, Normal mood - Skin Skin Temperature: Warm Skin Moisture: Dry Skin Color: Normal Course - Re-evaluation Re-evalutation: 04/22/19 22:00 Patient presents after a fall. No injuries are detected on work-up. Vital signs are stable. Patient states that even though she was discharged home today she would like to go to a rehab facility because she does not feel that she can ambulate well with her can help her. I did call and discussed the case with Dr. Kauffman who states that he did not have a reason for admission for the patient. I then called and spoke with social work who states that they know the patient well and that they are currently working on placement for the patient but that [facility] This was shared with the patient and she is decided to go home. - Vital Signs Vital signs: Temp Pulse Resp BP Pulse Ox 98.0 F 14 154/72 H 99 04/22/19 19:54 04/22/19 19:17 04/22/19 19:17 04/22/19 19:17 - Diagnostic Test Radiology reviewed: Image reviewed, Reports reviewed Discharge - Discharge Clinical Impression: Fall Qualifiers: Encounter type: initial encounter Qualified Code(s): W19.XXXA - Unspecified fall, initial encounter Cervical strain, acute Qualifiers: Encounter type: initial encounter Qualified Code(s): S16.1XXA - Strain of muscle, fascia and tendon at neck level, initial encounter Gout Qualifiers: Gout site: foot Gout etiology: idiopathic Chronicity: acute Laterality: left Qualified Code(s): M10.072 - Idiopathic gout, left ankle and foot Condition: Stable Disposition: HOME, SELF-CARE Instructions: Neck Injury (Cervical Strain) ([facility]), Gout ([facility]), Gout Diet ([facility]) Additional Instructions: Please call Dr. Kauffman first thing in the morning to discuss further care and possible rehabilitation placement. Referrals: JIN KAUFFMAN MD [Primary Care Provider] - Follow up tomorrow
[2019-04-22 22:34] VITALS: BP 119/87
== END 2019-04-22 22:33 | disposition home or self-care (01) ==
LOC: ER 18:27
DX: S16.1XXA Strain of muscle, fascia and tendon at neck level, initial encounter (principal); M54.2 Cervicalgia; W19.XXXA Unspecified fall, initial encounter; Y92.002 Bathroom of unspecified non-institutional (private) residence as the place of occurrence of the external cause; M10.072 Idiopathic gout, left ankle and foot; R53.1 Weakness; R60.0 Localized edema; I10 Essential (primary) hypertension; J44.9 Chronic obstructive pulmonary disease, unspecified; Z88.6 Allergy status to analgesic agent; Z88.8 Allergy status to other drugs, medicaments and biological substances
CPT/HCPCS: 70450; 72125; 99284

== ENCOUNTER → 2019-07-21 | Outpatient (CLI) | payer MEDICARE, OTHER ==
[2019-07-21 12:43] LABS: ABSOLUTE EOSINOPHILS # (AUTO) 0.3 10^3/uL (0.0-0.6); ABSOLUTE LYMPHOCYTES (AUTO) 1.2 10^3/uL (0.5-4.7); ABSOLUTE MONOCYTES (AUTO) 0.4 10^3/uL (0.1-1.4); ABSOLUTE NEUT (AUTO) 2.9 10^3/uL (1.7-8.2); BASOPHILS % (AUTO) 0.8 % (0-2); EOSINOPHILS % (AUTO) 6.5 % (0-6); HEMATOCRIT 31.3 % (36.0-47.0); HEMOGLOBIN 10.6 g/dL (12.0-15.5); LYMPHOCYTES % (AUTO) 24.3 % (13-45); MEAN CORPUSCULAR HEMOGLOBIN 30.1 pg (27.0-33.4); MEAN CORPUSCULAR HGB CONC 33.9 g/dL (32.0-36.0); MEAN CORPUSCULAR VOLUME 89 fl (80-97); MONOCYTES % (AUTO) 7.6 % (3-13); PLATELET COUNT 249 10^3/uL (150-450); RED BLOOD COUNT 3.52 10^6/uL (3.72-5.28); RED CELL DISTRIBUTION WIDTH 15.9 % (11.5-14.0); SEGMENTED NEUTROPHILS % (AUTO) 60.8 % (42-78); TOTAL CELLS COUNTED % (AUTO) 100 %; WHITE BLOOD COUNT 4.8 10^3/uL (4.0-10.5)
[2019-07-21 13:09] LABS: ALBUMIN 3.9 g/dL (3.5-5.0); ALKALINE PHOSPHATASE 139 U/L (38-126); ANION GAP 14 (5-19); ASPARTATE AMINO TRANSFERASE 26 U/L (14-36); BILIRUBIN,DIRECT 0.4 mg/dL (0.0-0.4); BILIRUBIN,TOTAL 0.4 mg/dL (0.2-1.3); BLOOD UREA NITROGEN 31 mg/dL (7-20); CALCIUM 9.4 mg/dL (8.4-10.2); CARBON DIOXIDE 30 mmol/L (22-30); CHLORIDE 98 mmol/L (98-107); GLUCOSE 87 mg/dL (75-110); POTASSIUM 4.7 mmol/L (3.6-5.0); TOTAL PROTEIN 7.3 g/dL (6.3-8.2); TRIGLYCERIDES 66 mg/dL (<150); URIC ACID 11.3 mg/dL (2.5-7.5)
[2019-07-21 13:19] LABS: DIRECT LDL 97 mg/dL (<100); FREE T4 (FREE THYROXINE) 0.65 ng/dL (0.78-2.19)
[2019-07-21 13:33] LABS: THYROID STIMULATING HORMONE 24.8 uIU/mL (0.47-4.68)
== END ==
LOC: OD 11:33
PROVIDERS: ATTEND Internal Medicine
DX: E03.8 Other specified hypothyroidism (principal); I10 Essential (primary) hypertension; D63.8 Anemia in other chronic diseases classified elsewhere; E79.0 Hyperuricemia without signs of inflammatory arthritis and tophaceous disease; E55.9 Vitamin D deficiency, unspecified
CPT/HCPCS: 36415; 80053; 80061; 82306; 84439; 84443; 84550; 85025

== ENCOUNTER 2019-09-12 16:15 | Emergency (ER) | payer MEDICARE, OTHER ==
[2019-09-12 16:50] LABS: ABSOLUTE BASOPHILS # (AUTO) 0.1 10^3/uL (0.0-0.2); ABSOLUTE EOSINOPHILS # (AUTO) 0.2 10^3/uL (0.0-0.6); ABSOLUTE LYMPHOCYTES (AUTO) 1.3 10^3/uL (0.5-4.7); ABSOLUTE MONOCYTES (AUTO) 0.7 10^3/uL (0.1-1.4); ABSOLUTE NEUT (AUTO) 9.4 10^3/uL (1.7-8.2); BASOPHILS % (AUTO) 0.5 % (0-2); HEMATOCRIT 31.4 % (36.0-47.0); HEMOGLOBIN 10.3 g/dL (12.0-15.5); LYMPHOCYTES % (AUTO) 11.2 % (13-45); MEAN CORPUSCULAR HEMOGLOBIN 30.2 pg (27.0-33.4); MEAN CORPUSCULAR HGB CONC 32.7 g/dL (32.0-36.0); MEAN CORPUSCULAR VOLUME 92 fl (80-97); MONOCYTES % (AUTO) 6.3 % (3-13); PLATELET COUNT 221 10^3/uL (150-450); RED CELL DISTRIBUTION WIDTH 15.2 % (11.5-14.0); TOTAL CELLS COUNTED % (AUTO) 100 %; WHITE BLOOD COUNT 11.7 10^3/uL (4.0-10.5)
[2019-09-12 16:55] LABS: ALBUMIN 3.5 g/dL (3.5-5.0); ALKALINE PHOSPHATASE 123 U/L (38-126); ANION GAP 8 (5-19); ASPARTATE AMINO TRANSFERASE 23 U/L (14-36); BILIRUBIN,DIRECT 0.4 mg/dL (0.0-0.4); BILIRUBIN,TOTAL 0.4 mg/dL (0.2-1.3); BLOOD UREA NITROGEN 57 mg/dL (7-20); CARBON DIOXIDE 28 mmol/L (22-30); CHLORIDE 103 mmol/L (98-107); CREATINE KINASE 49 U/L (30-135); GLUCOSE 106 mg/dL (75-110); TOTAL PROTEIN 6.9 g/dL (6.3-8.2)
[2019-09-12 17:07] LABS: CREATINE KINASE MB 0.59 ng/mL (<4.55); NT PRO BNP 841 pg/mL (<125)
[2019-09-12 17:08] LABS: TROPONIN I < 0.012 ng/mL
--- NOTE | 2019-09-12 17:26 | RADIOLOGY REPORT (SQ) ---
EXAM DESCRIPTION: CHEST SINGLE VIEW COMPLETED DATE/TIME: 09/12/2019 4:59 pm REASON FOR STUDY: SOB COMPARISON: Chest radiographs 04/19/2019 EXAM PARAMETERS: NUMBER OF VIEWS: One view. TECHNIQUE: Single frontal radiographic view of the chest acquired. RADIATION DOSE: NA LIMITATIONS: None. FINDINGS: LUNGS AND PLEURA: Chronic interstitial airspace opacities. Left basilar airspace opacity, which appears to be attributed to overlapping shadows. No pneumothorax or pleural effusion. . MEDIASTINUM AND HILAR STRUCTURES: No masses. Contour normal. HEART AND VASCULAR STRUCTURES: Heart normal in size. Normal vasculature. BONES: No acute findings. HARDWARE: None in the chest. OTHER: No other significant finding. IMPRESSION: NO ACUTE RADIOGRAPHIC FINDING IN THE CHEST. TECHNICAL DOCUMENTATION: JOB ID: [id number] 2011 [employer]- All Rights Reserved Reading location - IP/workstation name: [email or web address]
--- NOTE | 2019-09-12 20:12 | ER Document Report ---
ED Respiratory Problem - General Chief Complaint: Shortness Of Breath Stated Complaint: SHORTNESS OF BREATH Time Seen by Provider: 09/12/19 20:09 Primary Care Provider: MARK HAILE MD [Primary Care Provider] - 09/15/19 Notes: Patient is a 64-year-old female that comes emergency department by EMS for chief complaint of shortness of breath, cough, wheezing, difficulty breathing. She states this is been worsening over the past 2 to 3 weeks but today she felt significantly worse. She states that she "has to come in early to get treated" because she has had frequent hospitalizations for pneumonia and COPD exacerbatio ns in the past. She denies fever, she is vaccinated for influenza. She denies chest pain, vomiting, abdominal pain. She has chronic lower extremity swelling and is on diuresis for this. Remaining medical history includes chronic kidney disease, CVA with no deficits, hypertension, and as needed at home oxygen use. She follows with [employer] Dr. Anderson and primary care Dr. Haile. TRAVEL OUTSIDE OF THE [place] IN LAST 30 DAYS: No - Related Data Allergies/Adverse Reactions: pregabalin [From Lyrica] Allergy (Unknown, Verified 09/12/19 16:33) trazodone HCl [From Desyrel] Allergy (Unknown, Verified 09/12/19 16:33) cephalexin monohydrate [From Keflex] Adverse Reaction (Verified 09/12/19 16:33) nausea, vomiting erythromycin base [Erythromycin Base] Adverse Reaction (Verified 09/12/19 16:33) nausea, vomiting gabapentin Adverse Reaction (Verified 09/12/19 16:33) Nausea guaifenesin [From Entex T] Adverse Reaction (Verified 09/12/19 16:33) Nausea pseudoephedrine [From Entex T] Adverse Reaction (Verified 09/12/19 16:33) Nausea Past Medical History - General Information source: Patient - Social History Smoking Status: Former Smoker Frequency of alcohol use: None Drug Abuse: None Lives with: Family Family History: CAD, Hypertension Patient has suicidal ideation: No Patient has homicidal ideation: No - Past Medical History Cardiac Medical History: Reports: Hx Congestive Heart Failure, Hx Hypercholesterolemia, Hx Hypertension Denies: Hx Atrial Fibrillation, Hx Coronary Artery Disease - HIGH CHOLESTEROL, Hx DVT, Hx Heart Attack, Hx Pulmonary Embolism Pulmonary Medical History: Reports: Hx Asthma, Hx Bronchitis, Hx COPD, Hx Pneumonia - Several admissions within the last 12 months, Hx Respiratory Failure Denies: Hx Tuberculosis Neurological Medical History: Reports: Hx Cerebrovascular Accident - 7 YEARS AGO HAS "MEMORY ISSUES" "STROKE X4, last one 2005. Denies: Hx Seizures Endocrine Medical History: Reports: Hx Hypothyroidism. Denies: Hx Diabetes Mellitus Type 1, Hx Diabetes Mellitus Type 2, Hx Hyperthyroidism Renal/ Medical History: Reports: Hx Renal Insufficiency. Denies: Hx End Stage Renal Disease, Hx Peritoneal Dialysis GI Medical History: Denies: Hx Cirrhosis, Hx Crohn's Disease, Hx Hepatitis, Hx Ulcerative Colitis Musculoskeletal Medical History: Reports Hx Arthritis, Denies Hx Fibromyalgia, Denies Hx Gout Skin Medical History: Denies Hx Eczema, Denies Hx Psoriasis Psychiatric Medical History: Reports: Hx Depression Traumatic Medical History: Denies: Hx Traumatic Brain Injury Infectious Medical History: Denies: Hx Hepatitis, Hx HIV Past Surgical History: Reports: Hx Dilation and Curettage, Hx Hysterectomy, Hx Orthopedic Surgery - Wrist fracture repair, Hx Tubal Ligation - Immunizations Hx Diphtheria, Pertussis, Tetanus Vaccination: Yes Hx Pneumococcal Vaccination: 07/22/18 Review of Systems - Review of Systems Constitutional: No symptoms reported EENT: No symptoms reported Cardiovascular: No symptoms reported Respiratory: See HPI Gastrointestinal: No symptoms reported Genitourinary: No symptoms reported Female Genitourinary: No symptoms reported Musculoskeletal: No symptoms reported Skin: No symptoms reported Hematologic/Lymphatic: No symptoms reported Neurological/Psychological: No symptoms reported Physical Exam - Vital signs Vitals: Resp 15 09/12/19 16:22 - Notes Notes: GENERAL: Alert, interacts well. No acute distress. HEAD: Normocephalic, atraumatic. EYES: Pupils equal, round, and reactive to light. Extraocular movements intact. ENT: Oral mucosa moist, tongue midline. Oropharynx unremarkable. Airway patent. Nares patent NECK: Full range of motion. Supple. Trachea midline. LUNGS: Occasional congested cough, scattered expiratory wheezes but no rales or rhonchi. No tachypnea or labored breathing. Speaks in full sentences. HEART: Regular rate and rhythm. No murmur ABDOMEN: Soft, non-tender. Non-distended. EXTREMITIES: Moves all 4 extremities spontaneously. Bilateral 1+ pitting edema, normal radial and dorsalis pedis pulses bilaterally. No cyanosis. BACK: no cervical, thoracic, lumbar midline tenderness. No saddle anesthesia, normal distal neurovascular exam. Moves all extremities in full range of motion. NEUROLOGICAL: Alert and oriented x3. Normal speech. Cranial nerves II through XII grossly intact. PSYCH: Normal affect, normal mood. SKIN: Warm, dry, normal turgor. No rashes or lesions noted. Course - Re-evaluation Re-evalutation: Patient initially wheezing with occasional coughing. She is speaking in full sentences, she is not in respiratory distress. Patient frequently messes with her pulse oximetry device but when she has a good Pleth this does not show hypoxia. After DuoNeb's, Solu-Medrol, magnesium, her breathing is much better on reevaluation, wheezing has essentially resolved. Chest x-ray unremarkable. CBC does show some leukocytosis with elevation of neutrophils but no bandemia. Chemistry with chronic kidney disease. Troponin is negative. BNP is not impressive compared to prior and she has no vascular congestion on x-ray or rales on exam. I discussed with patient. She is doing much better now. She does not ambulate and therefore was not ambulated. Patient will be started on steroids for bronchitis/wheezing, antibiotics because of leukocytosis and frequent pneumonia, she will follow closely with her provider and [employer], she will return if she worsens in any way. Discussed this with patient and family. They state appreciation and agreement. Stable, talkative, well-appearing at time of discharge. I did discuss with patient and , they state they would like more assistance at home, correctional case manager consult was placed. - Vital Signs Vital signs: Temp Pulse Resp BP Pulse Ox 98.1 F 98 24 H 120/43 L 93 09/13/19 01:20 09/13/19 01:20 09/13/19 01:20 09/13/19 01:20 09/13/19 01:20 - Laboratory Result Diagrams: 09/12/19 16:20 09/12/19 16:20 Laboratory results interpreted by me: 09/12/19 09/12/19 09/12/19 16:20 16:20 16:20 WBC 11.7 H RBC 3.40 L Hgb 10.3 L Hct 31.4 L RDW 15.2 H Lymph % (Auto) 11.2 L Absolute Neuts (auto) 9.4 H Seg Neutrophils % 80.0 H BUN 57 H Creatinine 2.24 H Est GFR ( Amer) 26 L Est GFR (MDRD) Non-Af 22 L NT-Pro-B Natriuret Pep 841 H Discharge - Discharge Clinical Impression: Wheezing, Cough, Skin abrasion Upper respiratory infection Qualifiers: URI type: unspecified URI Qualified Code(s): J06.9 - Acute upper respiratory infection, unspecified Condition: Stable Disposition: HOME, SELF-CARE Additional Instructions: Your chest x-ray is clear, however based on your symptoms, history, labs work-up in you for potential pneumonia in addition to treating you for the upper respiratory infection and wheezing. Use your albuterol, take prednisone as prescribed, take antibiotics as p rescribed to cover for pneumonia and to prevent infection over the abrasion. I recommend a topical antibiotic dressing over your left leg abrasion. We have a correctional case manager consult pending, they will be contacting you to help provide additional assistance. Follow-up closely with your primary care provider for additional management. Return if you worsen including spiking fever, difficulty breathing, or any other concerning or worsening symptoms. Prescriptions: Prednisone [Deltasone 20 mg Tablet] 3 tab PO DAILY 5 Days #15 tablet Albuterol Sulfate [Proair HFA Inhalation Aerosol 8.5 gm MDI] 2 puff IH Q4H PRN #1 mdi PRN Reason: Doxycycline Hyclate [Vibramycin 100 mg Tablet] 100 mg PO BID 7 Days #14 tablet Referrals: MARK HAILE MD [Primary Care Provider] - 09/15/19
[2019-09-12] MEDS ORDERED: IPRATROPIUM/ALBUTEROL 0.5-2.5 MG/3 ML AMPUL NEB ONE ×2 (20:19→21:41)
[2019-09-12] MEDS ORDERED: METHYLPREDNISOLONE INJ 125 MG/2 ML SDV IV ONE (20:19)
[2019-09-12] MEDS ORDERED: MAGNESIUM SULFATE/D5W 1 GM/100 ML RTUPB IV ONE (21:41)
[2019-09-12] MEDS ORDERED: DOXYCYCLINE HYCLATE INJ 100 MG VIAL IV ONE (21:42)
--- NOTE | 2019-09-12 22:03 | EKG REPORT ---
SEVERITY:- NORMAL ECG - SINUS RHYTHM : Confirmed by: Priscilla Reddy 12-Sep-2019 22:02:59
[2019-09-12] MEDS ORDERED: ACETAMINOPHEN 325 MG TABLET PO ONE (22:37)
[2019-09-12] MEDS ORDERED: ONDANSETRON HCL INJ/PF 4 MG/2 ML SDV IV ONE (22:38)
[2019-09-13 01:24] VITALS: BP 120/43
== END 2019-09-13 01:35 | disposition home or self-care (01) ==
LOC: ER 16:15
DX: J06.9 Acute upper respiratory infection, unspecified (principal); R06.2 Wheezing; R05 Cough; S70.312A Abrasion, left thigh, initial encounter; X58.XXXA Exposure to other specified factors, initial encounter; R06.02 Shortness of breath; R60.0 Localized edema; Z79.899 Other long term (current) drug therapy; Z88.8 Allergy status to other drugs, medicaments and biological substances; Z87.891 Personal history of nicotine dependence; I13.0 Hypertensive heart and chronic kidney disease with heart failure and stage 1 through stage 4 chronic kidney disease, or unspecified chronic kidney disease; N18.9 Chronic kidney disease, unspecified; I50.9 Heart failure, unspecified; Z99.81 Dependence on supplemental oxygen; J44.9 Chronic obstructive pulmonary disease, unspecified
CPT/HCPCS: 93005; 94640 ×2; 99285; 96375; 96365; 96366; 96367; 36415; 82553; 82550; 85025; 80053; 84484; 83880; 71045; 93010; A9270 ×2; J3490; J2930; J3475; J2405; J7620

== ENCOUNTER → 2019-09-14 | Outpatient (CLI) | payer MEDICARE, OTHER ==
[2019-09-14 14:40] LABS: ALBUMIN 3.7 g/dL (3.5-5.0); ALKALINE PHOSPHATASE 124 U/L (38-126); ANION GAP 13 (5-19); ASPARTATE AMINO TRANSFERASE 27 U/L (14-36); BILIRUBIN,DIRECT 0.4 mg/dL (0.0-0.4); BILIRUBIN,TOTAL 0.4 mg/dL (0.2-1.3); BLOOD UREA NITROGEN 63 mg/dL (7-20); CALCIUM 9.4 mg/dL (8.4-10.2); CARBON DIOXIDE 25 mmol/L (22-30); CHLORIDE 101 mmol/L (98-107); GLUCOSE 94 mg/dL (75-110); POTASSIUM 3.8 mmol/L (3.6-5.0); TOTAL PROTEIN 7.2 g/dL (6.3-8.2); URIC ACID 7.6 mg/dL (2.5-7.5)
[2019-09-14 14:55] LABS: FREE T4 (FREE THYROXINE) 1.72 ng/dL (0.78-2.19)
[2019-09-14 15:09] LABS: THYROID STIMULATING HORMONE 0.76 uIU/mL (0.47-4.68)
== END ==
LOC: OD 13:31
PROVIDERS: ATTEND Internal Medicine
DX: N18.3 Chronic kidney disease, stage 3 (moderate) (principal); E79.0 Hyperuricemia without signs of inflammatory arthritis and tophaceous disease; E03.8 Other specified hypothyroidism
CPT/HCPCS: 36415; 80053; 84439; 84443; 84550

== ENCOUNTER → 2019-09-24 | Outpatient (CLI) | payer MEDICARE, OTHER ==
[2019-09-24 13:08] LABS: ABSOLUTE EOSINOPHILS # (AUTO) 0.2 10^3/uL (0.0-0.6); ABSOLUTE LYMPHOCYTES (AUTO) 1.2 10^3/uL (0.5-4.7); ABSOLUTE MONOCYTES (AUTO) 0.5 10^3/uL (0.1-1.4); ABSOLUTE NEUT (AUTO) 6.8 10^3/uL (1.7-8.2); BASOPHILS % (AUTO) 0.4 % (0-2); EOSINOPHILS % (AUTO) 2.3 % (0-6); HEMATOCRIT 33.7 % (36.0-47.0); HEMOGLOBIN 11.1 g/dL (12.0-15.5); LYMPHOCYTES % (AUTO) 13.7 % (13-45); MEAN CORPUSCULAR HEMOGLOBIN 30.9 pg (27.0-33.4); MEAN CORPUSCULAR VOLUME 94 fl (80-97); MONOCYTES % (AUTO) 5.8 % (3-13); PLATELET COUNT 187 10^3/uL (150-450); RED CELL DISTRIBUTION WIDTH 15.7 % (11.5-14.0); SEGMENTED NEUTROPHILS % (AUTO) 77.8 % (42-78); TOTAL CELLS COUNTED % (AUTO) 100 %; WHITE BLOOD COUNT 8.7 10^3/uL (4.0-10.5)
[2019-09-24 13:27] LABS: ALBUMIN 3.4 g/dL (3.5-5.0); ALKALINE PHOSPHATASE 124 U/L (38-126); ANION GAP 13 (5-19); ASPARTATE AMINO TRANSFERASE 27 U/L (14-36); BILIRUBIN,DIRECT 0.3 mg/dL (0.0-0.4); BILIRUBIN,TOTAL 0.3 mg/dL (0.2-1.3); BLOOD UREA NITROGEN 38 mg/dL (7-20); CALCIUM 8.5 mg/dL (8.4-10.2); CARBON DIOXIDE 24 mmol/L (22-30); CHLORIDE 102 mmol/L (98-107); GLUCOSE 99 mg/dL (75-110); POTASSIUM 3.7 mmol/L (3.6-5.0); TOTAL PROTEIN 7.1 g/dL (6.3-8.2)
== END ==
LOC: OD 12:29
PROVIDERS: ATTEND Internal Medicine
DX: N17.8 Other acute kidney failure (principal); J44.1 Chronic obstructive pulmonary disease with (acute) exacerbation
CPT/HCPCS: 36415; 80053; 85025

== ENCOUNTER → 2019-11-24 | Outpatient (CLI) | payer MEDICARE, OTHER ==
[2019-11-24 14:41] LABS: ABSOLUTE BASOPHILS # (AUTO) 0.1 10^3/uL (0.0-0.2); ABSOLUTE EOSINOPHILS # (AUTO) 0.4 10^3/uL (0.0-0.6); ABSOLUTE LYMPHOCYTES (AUTO) 1.5 10^3/uL (0.5-4.7); ABSOLUTE MONOCYTES (AUTO) 0.4 10^3/uL (0.1-1.4); ABSOLUTE NEUT (AUTO) 2.4 10^3/uL (1.7-8.2); BASOPHILS % (AUTO) 1.3 % (0-2); EOSINOPHILS % (AUTO) 7.9 % (0-6); HEMATOCRIT 33.7 % (36.0-47.0); HEMOGLOBIN 11.6 g/dL (12.0-15.5); LYMPHOCYTES % (AUTO) 31.6 % (13-45); MEAN CORPUSCULAR HEMOGLOBIN 31.9 pg (27.0-33.4); MEAN CORPUSCULAR HGB CONC 34.5 g/dL (32.0-36.0); MEAN CORPUSCULAR VOLUME 92 fl (80-97); MONOCYTES % (AUTO) 7.9 % (3-13); PLATELET COUNT 225 10^3/uL (150-450); RED BLOOD COUNT 3.65 10^6/uL (3.72-5.28); RED CELL DISTRIBUTION WIDTH 14.8 % (11.5-14.0); SEGMENTED NEUTROPHILS % (AUTO) 51.3 % (42-78); TOTAL CELLS COUNTED % (AUTO) 100 %; WHITE BLOOD COUNT 4.7 10^3/uL (4.0-10.5)
[2019-11-24 14:47] LABS: ABSOLUTE BASOPHILS # (AUTO) 0.1 10^3/uL (0.0-0.2); ABSOLUTE EOSINOPHILS # (AUTO) 0.4 10^3/uL (0.0-0.6); ABSOLUTE LYMPHOCYTES (AUTO) 1.5 10^3/uL (0.5-4.7); ABSOLUTE MONOCYTES (AUTO) 0.4 10^3/uL (0.1-1.4); ABSOLUTE NEUT (AUTO) 2.4 10^3/uL (1.7-8.2); BASOPHILS % (AUTO) 1.3 % (0-2); EOSINOPHILS % (AUTO) 7.9 % (0-6); HEMATOCRIT 33.7 % (36.0-47.0); HEMOGLOBIN 11.6 g/dL (12.0-15.5); LYMPHOCYTES % (AUTO) 31.6 % (13-45); MEAN CORPUSCULAR HEMOGLOBIN 31.9 pg (27.0-33.4); MEAN CORPUSCULAR HGB CONC 34.5 g/dL (32.0-36.0); MEAN CORPUSCULAR VOLUME 92 fl (80-97); MONOCYTES % (AUTO) 7.9 % (3-13); PLATELET COUNT 225 10^3/uL (150-450); RED BLOOD COUNT 3.65 10^6/uL (3.72-5.28); RED CELL DISTRIBUTION WIDTH 14.8 % (11.5-14.0); SEGMENTED NEUTROPHILS % (AUTO) 51.3 % (42-78); TOTAL CELLS COUNTED % (AUTO) 100 %; WHITE BLOOD COUNT 4.7 10^3/uL (4.0-10.5)
[2019-11-24 14:58] LABS: ALBUMIN 4.1 g/dL (3.5-5.0); ANION GAP 8 (5-19); BLOOD UREA NITROGEN 40 mg/dL (7-20); CALCIUM 9.4 mg/dL (8.4-10.2); CARBON DIOXIDE 35 mmol/L (22-30); CHLORIDE 96 mmol/L (98-107); GLUCOSE 120 mg/dL (75-110); PHOSPHORUS 4.2 mg/dL (2.5-4.5); POTASSIUM 4.4 mmol/L (3.6-5.0)
[2019-11-24 15:16] LABS: FREE T4 (FREE THYROXINE) 2.2 ng/dL (0.78-2.19)
[2019-11-24 15:30] LABS: THYROID STIMULATING HORMONE 0.33 uIU/mL (0.47-4.68)
[2019-11-25 08:45] LABS: ALBUMIN 4.1 g/dL (3.5-5.0); ALKALINE PHOSPHATASE 131 U/L (38-126); ANION GAP 10 (5-19); ASPARTATE AMINO TRANSFERASE 24 U/L (14-36); BILIRUBIN,TOTAL 0.3 mg/dL (0.2-1.3); BLOOD UREA NITROGEN 39 mg/dL (7-20); CALCIUM 9.5 mg/dL (8.4-10.2); CARBON DIOXIDE 33 mmol/L (22-30); CHLORIDE 95 mmol/L (98-107); GLUCOSE 121 mg/dL (75-110); POTASSIUM 4.1 mmol/L (3.6-5.0); TOTAL PROTEIN 7.1 g/dL (6.3-8.2)
[2019-11-25 13:34] LABS: APPEARANCE,URINE CLEAR; BILIRUBIN,URINE NEGATIVE (NEGATIVE); COLOR,URINE STRAW; GLUCOSE, URINE NEGATIVE (NEGATIVE); KETONES,URINE NEGATIVE (NEGATIVE); LEUKOCYTE ESTERASE,URINE SMALL (NEGATIVE); NITRITE,URINE NEGATIVE (NEGATIVE); PROTEIN,URINE NEGATIVE (NEGATIVE); URINE SPECIFIC GRAVITY 1.006; UROBILINOGEN,URINE NEGATIVE mg/dL (<2.0)
== END ==
LOC: OD 14:04
PROVIDERS: ATTEND Physician Assistant Medical
DX: I12.0 Hypertensive chronic kidney disease with stage 5 chronic kidney disease or end stage renal disease (principal); I50.9 Heart failure, unspecified; N18.4 Chronic kidney disease, stage 4 (severe); D63.8 Anemia in other chronic diseases classified elsewhere; E03.8 Other specified hypothyroidism; E55.9 Vitamin D deficiency, unspecified; E78.2 Mixed hyperlipidemia; E79.0 Hyperuricemia without signs of inflammatory arthritis and tophaceous disease; E87.6 Hypokalemia; R60.9 Edema, unspecified
CPT/HCPCS: 36415; 80053; 80069; 81001; 82306; 83735; 83970; 84439; 84443; 84550; 85025

== ENCOUNTER 2019-12-08 02:25 | Inpatient (IN) | payer MEDICARE, OTHER ==
[2019-12-08] MEDS ORDERED: METHYLPREDNISOLONE INJ 125 MG/2 ML SDV IV ONE (02:49)
[2019-12-08] MEDS ORDERED: MORPHINE SULFATE 10 MG/ML INJ IV ONE (02:49)
[2019-12-08] MEDS ORDERED: IPRATROPIUM/ALBUTEROL 0.5-2.5 MG/3 ML AMPUL NEB ONE ×2 (02:49→05:39)
--- NOTE | 2019-12-08 02:56 | ER Document Report ---
ED General - General Chief Complaint: Shortness Of Breath Stated Complaint: FALL/SOB Time Seen by Provider: 12/08/19 02:37 Primary Care Provider: MARK HAILE MD [Primary Care Provider] - Follow up as needed Notes: Patient is a 64-year-old female that comes to the emergency department by EMS from home for chief complaint of difficulty breathing, generalized weakness, and a fall. Patient states that 3 days ago she fell trying to get back into bed, she states she slipped and then landed on her left hip. She states since then she has really not been able to get out of bed and she states she feels like she is weakening and her breathing is getting worse. She also has not been hydrating or eating well. She denies fever but she does report cough, shortness of breath, intermittent discomfort in her chest. She states it feels like her albuterol nebulizer is not working at home. She has just started within the sc st 2 days increasing her oxygen to 4 L nasal cannula at all times because of her shortness of breath. She denies recent travel or sick exposures. She denies recent hospitalization. Patient ambulates with a walker and uses a wheelchair because of limited mobility. She has a history of COPD with as needed 2 L nasal cannula, chronic kidney disease, CVA with no deficits and on Arixtra, hypertension. She is a former smoker. She denies HI history. TRAVEL OUTSIDE OF THE [place] IN LAST 30 DAYS: No - Related Data Allergies/Adverse Reactions: pregabalin [From Lyrica] Allergy (Unknown, Verified 12/08/19 02:35) trazodone HCl [From Desyrel] Allergy (Unknown, Verified 12/08/19 02:35) cefadroxil Allergy (Verified 12/08/19 02:35) Tricyclic Compounds Allergy (Verified 12/08/19 02:35) cephalexin monohydrate [From Keflex] Adverse Reaction (Verified 12/08/19 02:35) nausea, vomiting erythromycin base [Erythromycin Base] Adverse Reaction (Verified 12/08/19 02:35) nausea, vomiting gabapentin Adverse Reaction (Verified 12/08/19 02:35) Nausea guaifenesin [From Entex T] Adverse Reaction (Verified 12/08/19 02:35) Nausea levofloxacin Adverse Reaction (Verified 12/08/19 02:35) pseudoephedrine [From Entex T] Adverse Reaction (Verified 12/08/19 02:35) Nausea sumatriptan Adverse Reaction (Verified 12/08/19 02:35) Past Medical History - General Information source: Patient - Social History Smoking Status: Former Smoker Drug Abuse: None Lives with: Spouse/Significant other Family History: CAD, Hypertension Patient has homicidal ideation: No - Past Medical History Cardiac Medical History: Reports: Hx Hypercholesterolemia, Hx Hypertension Denies: Hx Atrial Fibrillation, Hx DVT, Hx Heart Attack, Hx Pulmonary Embolism Pulmonary Medical History: Reports: Hx Asthma, Hx Bronchitis, Hx COPD, Hx Pneumonia - Several admissions within the last 12 months, Hx Respiratory Failure Denies: Hx Tuberculosis Neurological Medical History: Reports: Hx Cerebrovascular Accident - 7 YEARS AGO HAS "MEMORY ISSUES" "STROKE X4, last one 2005. Denies: Hx Seizures Endocrine Medical History: Reports: Hx Hypothyroidism. Denies: Hx Diabetes Mellitus Type 1, Hx Diabetes Mellitus Type 2, Hx Hyperthyroidism Renal/ Medical History: Reports: Hx Renal Insufficiency. Denies: Hx End Stage Renal Disease, Hx Peritoneal Dialysis GI Medical History: Denies: Hx Cirrhosis, Hx Crohn's Disease, Hx Hepatitis, Hx Ulcerative Colitis Musculoskeletal Medical History: Reports Hx Arthritis, Denies Hx Fibromyalgia, Denies Hx Gout Skin Medical History: Denies Hx Eczema, Denies Hx Psoriasis Psychiatric Medical History: Reports: Hx Depression Traumatic Medical History: Denies: Hx Traumatic Brain Injury Infectious Medical History: Denies: Hx Hepatitis, Hx HIV Past Surgical History: Reports: Hx Dilation and Curettage, Hx Hysterectomy, Hx Orthopedic Surgery - Wrist fracture repair, Hx Tubal Ligation - Immunizations Hx Diphtheria, Pertussis, Tetanus Vaccination: Yes Hx Pneumococcal Vaccination: 07/22/18 Review of Systems - Review of Systems Constitutional: See HPI EENT: No symptoms reported Cardiovascular: See HPI Respiratory: See HPI Gastrointestinal: No symptoms reported Genitourinary: No symptoms reported Female Genitourinary: No symptoms reported Musculoskeletal: See HPI Skin: No symptoms reported Hematologic/Lymphatic: No symptoms reported Neurological/Psychological: No symptoms reported Physical Exam - Vital signs Vitals: Resp Pulse Ox 20 94 12/08/19 02:29 12/08/19 02:29 - Notes Notes: GENERAL: Alert, conversational, no severe distress HEAD: Normocephalic, atraumatic. EYES: Pupils equal, round, and reactive to light. Extraocular movements intact. ENT: Oral mucosa very dry, tongue midline. Oropharynx unremarkable. Airway patent. NECK: Full range of motion. Supple. Trachea midline. No lymphadenopathy. LUNGS: Decreased breath sounds bilaterally, expiratory wheezes throughout, borderline tachypnea, borderline labored breathing. HEART: Regular rate and rhythm. ABDOMEN: Soft, non-tender. Non-distended. Exam limited by body habitus EXTREMITIES: Patient reports pain with palpation over the left hip and anterior thigh generally, no signs of trauma. There is edema of both lower extremities extending up into the thighs with pitting. Distal neurovascular exam intact, no cyanosis. BACK: no cervical, thoracic, lumbar midline tenderness. No saddle anesthesia, normal distal neurovascular exam. NEUROLOGICAL: Alert and oriented x3. Normal speech. Cranial nerves II through XII grossly intact. Strength 5/5 in all extremities. PSYCH: Normal affect, normal mood. SKIN: Warm, dry, normal turgor. No rashes or lesions noted. Course - Re-evaluation Re-evalutation: Patient with borderline tachypnea, expiratory wheezes, however she speaks in full sentences, on nasal cannula she is 96% oxygen saturation. Blood pressure, heart rate, temperature unremarkable. CBC without significant change from prior. Chemistry shows acute renal failure, creatinine is 4.71, previous 1.5. BUN is very elevated. In review of records that her previous echocardiogram showed EF of 70%. Patient also appeared to be hypotensive after we gave her morphine, however after IV fluids this was rechecked and unremarkable. Blood pressure appeared to drop again, however patient has a difficult arm to check with the cuff, we performed a manual and this was normal with normal map and in the 100s systolic. Patient did not have any mental status change or change in appearance with the supposedly low blood pressures as well. I suspect this was equipment error. On evaluation patient slightly more tachypnea, wheezing is slightly reduced, given additional DuoNeb's, placed on BiPAP. Blood gas does show hypercarbia at 69.5 with pH of 7.24. Evaluation consistent with COPD exacerbation, acute on chronic respiratory failure. Chest x-ray finally obtained after a long delay and this shows what could be chronic interstitial opacities versus edema versus atypical pneumonia. BNP is not elevated, patient has no leukocytosis, coughing on my evaluation, or fever. She will require admission and will be tested for COVID-19. Placed a Rodriguez due to her immobility and renal failure. X-ray of the hip appears negative. Patient has been discussed with Dr. Rebollar. Patient has been tolerating the BiPAP well. She also has had urine output with the Rodriguez. Discussed admission with patient and she states full agreement. 12/08/19 07:[address] Naranjo, patient accepted to [facility] full admission. - Vital Signs Vital signs: Temp Pulse Resp BP Pulse Ox 98.5 F 16 95/81 L 99 12/08/19 02:36 12/08/19 07:01 12/08/19 07:00 12/08/19 07:01 - Laboratory Result Diagrams: 12/08/19 03:00 12/08/19 03:00 Laboratory results interpreted by me: 12/08/19 12/08/19 12/08/19 03:00 03:00 03:00 RBC 3.13 L Hgb 10.1 L Hct 29.1 L RDW 15.3 H Lymph % (Auto) 8.4 L Seg Neutrophils % 84.1 H VBG pH VBG pCO2 Sodium 130.7 L Chloride 89 L BUN 103 H Creatinine 4.71 H Est GFR ( Amer) 11 L Est GFR (MDRD) Non-Af 9 L Glucose 145 H Creatine Kinase 258 H NT-Pro-B Natriuret Pep 517 H Albumin 3.4 L Urine Bilirubin Ur Leukocyte Esterase 12/08/19 12/08/19 03:00 05:50 RBC Hgb Hct RDW Lymph % (Auto) Seg Neutrophils % VBG pH 7.26 L VBG pCO2 69.5 H* Sodium Chloride BUN Creatinine Est GFR ( Amer) Est GFR (MDRD) Non-Af Glucose Creatine Kinase NT-Pro-B Natriuret Pep Albumin Urine Bilirubin SMALL H Ur Leukocyte Esterase SMALL H Discharge - Discharge Clinical Impression: COPD exacerbation, Left hip pain Acute on chronic respiratory failure Qualifiers: Respiratory failure complication: hypercapnia Qualified Code(s): J96.22 - Acute and chronic respiratory failure with hypercapnia Fall Qualifiers: Encounter type: initial encounter Qualified Code(s): W19.XXXA - Unspecified fall, initial encounter Acute renal failure Qualifiers: Acute renal failure type: unspecified Qualified Code(s): N17.9 - Acute kidney failure, unspecified Condition: Stable Disposition: ADMITTED INPATIENT Admitting Provider: Jose A (Hospitalist) Unit Admitted: [facility] Referrals: MARK HAILE MD [Primary Care Provider] - Follow up as needed
[2019-12-08 03:20] LABS: ABSOLUTE EOSINOPHILS # (AUTO) 0.2 10^3/uL (0.0-0.6); ABSOLUTE LYMPHOCYTES (AUTO) 0.8 10^3/uL (0.5-4.7); ABSOLUTE MONOCYTES (AUTO) 0.5 10^3/uL (0.1-1.4); ABSOLUTE NEUT (AUTO) 7.9 10^3/uL (1.7-8.2); BASOPHILS % (AUTO) 0.3 % (0-2); EOSINOPHILS % (AUTO) 2.3 % (0-6); HEMATOCRIT 29.1 % (36.0-47.0); HEMOGLOBIN 10.1 g/dL (12.0-15.5); LYMPHOCYTES % (AUTO) 8.4 % (13-45); MEAN CORPUSCULAR HEMOGLOBIN 32.1 pg (27.0-33.4); MEAN CORPUSCULAR HGB CONC 34.5 g/dL (32.0-36.0); MEAN CORPUSCULAR VOLUME 93 fl (80-97); MONOCYTES % (AUTO) 4.9 % (3-13); PLATELET COUNT 204 10^3/uL (150-450); RED BLOOD COUNT 3.13 10^6/uL (3.72-5.28); RED CELL DISTRIBUTION WIDTH 15.3 % (11.5-14.0); SEGMENTED NEUTROPHILS % (AUTO) 84.1 % (42-78); TOTAL CELLS COUNTED % (AUTO) 100 %; WHITE BLOOD COUNT 9.4 10^3/uL (4.0-10.5)
[2019-12-08 03:37] LABS: ALBUMIN 3.4 g/dL (3.5-5.0); ALKALINE PHOSPHATASE 109 U/L (38-126); ANION GAP 13 (5-19); ASPARTATE AMINO TRANSFERASE 28 U/L (14-36); BILIRUBIN,DIRECT 0.1 mg/dL (0.0-0.4); BILIRUBIN,TOTAL 0.5 mg/dL (0.2-1.3); BLOOD UREA NITROGEN 103 mg/dL (7-20); CALCIUM 8.9 mg/dL (8.4-10.2); CARBON DIOXIDE 29 mmol/L (22-30); CHLORIDE 89 mmol/L (98-107); CREATINE KINASE 258 U/L (30-135); GLUCOSE 145 mg/dL (75-110); POTASSIUM 4.7 mmol/L (3.6-5.0); TOTAL PROTEIN 6.3 g/dL (6.3-8.2)
[2019-12-08] MEDS ORDERED: NORMAL SALINE 500 ML IV ONE ×2 (03:49→03:50)
[2019-12-08 03:50] LABS: NT PRO BNP 517 pg/mL (<125)
[2019-12-08 03:51] LABS: TROPONIN I < 0.012 ng/mL
--- NOTE | 2019-12-08 05:54 | RADIOLOGY REPORT (SQ) ---
CHEST 1 VIEW on 12/08/2019 at 5:42 AM CLINICAL INDICATION: Difficulty breathing, weakness, chest pain COMPARISON: 09/12/2019 FINDINGS: There are mild bilateral interstitial opacities that may all be chronic in nature but cannot exclude component of edema or atypical pneumonia. Cardiac, hilar and mediastinal contours are within normal limits. No bony abnormality is noted. IMPRESSION: Bilateral interstitial opacities may all be chronic in nature but cannot exclude component of edema or atypical pneumonia.
[2019-12-08 05:56] LABS: VENOUS BLOOD HCO3 30.8 mmol/L (20-32); VENOUS BLOOD PH 7.26 (7.30-7.42)
[2019-12-08 05:58] LABS: VENOUS BLOOD PCO2 69.5 mmHg (35-63)
--- NOTE | 2019-12-08 05:59 | RADIOLOGY REPORT (SQ) ---
Pelvis and left hip two view on 12/08/2019 at 5:42 AM CLINICAL INDICATION: Left hip pain after fall COMPARISON: CT from 05/31/2013 FINDINGS: Clips from tubal ligation are noted in the pelvis. Degenerative changes are noted in the lower lumbar spine. The hips are well located. The SI joints are well aligned. The left greater trochanter obscures the femoral neck on both views limiting evaluation of the left hip. If there is high clinical concern for left hip fracture consider CT to better evaluate. No fracture is noted. No other bony abnormality is noted. IMPRESSION: No acute abnormality noted although there is limited visualization of the left femoral neck as above. If there is high clinical concern consider CT.
[2019-12-08 06:14] LABS: APPEARANCE,URINE SLIGHTLY-CLOUDY; BILIRUBIN,URINE SMALL (NEGATIVE); COLOR,URINE YELLOW; GLUCOSE, URINE NEGATIVE (NEGATIVE); KETONES,URINE NEGATIVE (NEGATIVE); LEUKOCYTE ESTERASE,URINE SMALL (NEGATIVE); NITRITE,URINE NEGATIVE (NEGATIVE); PROTEIN,URINE NEGATIVE (NEGATIVE); URINE SPECIFIC GRAVITY 1.018; UROBILINOGEN,URINE NEGATIVE mg/dL (<2.0)
--- NOTE | 2019-12-08 08:13 | EKG REPORT ---
SEVERITY:- ABNORMAL ECG - SINUS RHYTHM PROBABLE INFERIOR INFARCT, AGE INDETERMINATE : Confirmed by: Ladonna Ellis MD 08-Dec-2019 08:13:00
[2019-12-08] MEDS ORDERED: IPRATROPIUM/ALBUTEROL 0.5-2.5 MG/3 ML AMPUL NEB PRN (09:14)
[2019-12-08] MEDS ORDERED: ACETAMINOPHEN 325 MG TABLET PO PRN (09:14)
--- NOTE | 2019-12-08 09:57 | PDOC H&P ---
History of Present Illness Admission Date/PCP: 12/08/19 07:49 MARK HAILE MD Patient complains of: Shortness of breath History of Present Illness: LEATHA ATKINS is a 64 year old female with a history of congestive heart failure, hypertension, chronic renal failure believed to be stage III and COPD. She fell several days ago and has hip pain but did not sustain a fracture. Unfortunately her oral intake decreased but her diuretics and ALFRED inhibitor medications continued. When seen in the emergency department she was found to have a creatinine of 4.7 with a BUN of 103. She then began to experience shortness of breath. A venous blood gas was drawn. She was hypoxic and hypercapnic and required BiPAP. Her chest x-ray is not definitive for a pneumonia. Her brain natretic peptide is only 800. She will be admitted to the hospitalist service. The primary focus will be treating her acute on chronic kidney injury as well as her acute on chronic hypoxic hypercapnic respiratory failure. Past Medical History Cardiac Medical History: Reports: Congestive Heart Failure, Hyperlipidema, Hypertension Denies: Atrial Fibrillation, Coronary Artery Disease - HIGH CHOLESTEROL, DVT, Myocardial Infarction, Pulmonary Embolism Pulmonary Medical History: Reports: Asthma, Bronchitis, Chronic Obstructive Pulmonary Disease (COPD), Pneumonia - Several admissions within the last 12 months, Respiratory Failure Denies: Tuberculosis Neurological Medical History: Denies: Seizures Endocrine Medical History: Reports: Hypothyroidism Denies: Diabetes Mellitus Type 1, Diabetes Mellitus Type 2, Hyperthyroidism Renal/ Medical History: Denies: End Stage Renal Disease GI Medical History: Denies: Cirrhosis, Crohn's Disease, Hepatitis, Ulcerative Colitis Musculoskeltal Medical History: Reports: Arthritis Denies: Fibromyalgia, Gout Skin Medical History: Denies: Eczema, Psoriasis Psychiatric Medical History: Reports: Depression Traumatic Medical History: Denies: Traumatic Brain Injury Hematology: Reports: Anemia Denies: Sickle Cell Disease, Bleeding Tendencies Infectious Medical History: Denies: HIV Past Surgical History Past Surgical History: Reports: Hysterectomy, Orthopedic Surgery - Wrist f racture repair, Tubal Ligation Social History Lives with: Spouse/Significant other Smoking Status: Former Smoker Frequency of Alcohol Use: None Hx Recreational Drug Use: No Drugs: None Hx Prescription Drug Abuse: No - Advance Directive Resuscitation Status: Full Code Surrogate healthcare decision maker:: Her is the primary decision maker. Family History Family History: CAD, Hypertension Parental Family History Reviewed: Yes Children Family History Reviewed: Yes Sibling(s) Family History Reviewed.: Yes Medication/Allergy Home Medications: Albuterol Sulfate [Ventolin 0.083% Neb 2.5 mg/3 mL Ampul] 1 vial NEB RTQ4HP PRN 04/09/19 Alprazolam [Xanax 0.5 mg Tablet] 0.5 mg PO QID 04/09/19 Atorvastatin Calcium [Lipitor 20 mg Tablet] 20 mg PO DAILY 04/09/19 Donepezil HCl [Aricept] 10 mg PO QHS 04/09/19 Duloxetine HCl [Cymbalta 30 mg Capsule.dr] 60 mg PO DAILY 04/09/19 Ergocalciferol (Vitamin D2) [Drisdol 50,000 unit (1.25MG) Capsule] 50,000 unit PO MO@1000 04/09/19 Eszopiclone [Lunesta] 3 mg PO QHS 04/09/19 Fluoxetine HCl [Prozac 20 mg Capsule] 80 mg PO DAILY 04/09/19 Fluticasone Propionate [Flonase Nasal [place] 50 Mcg/[place] 16 gm] 1 spray NASL DAILY 04/09/19 Fluticasone/Umeclidin/Vilanter [Trelegy 100-62.5-25 Mcg Ellipta 14 Dose/Dpi] 1 puff IH DAILY 04/09/19 Fondaparinux Sodium [Arixtra Inj 7.5 mg/0.6 ml Disp. Syrin] 7.5 mg SUBCUT DAILY 04/09/19 Levocetirizine Dihydrochloride [Xyzal] 5 mg PO QHS 04/09/19 Levothyroxine Sodium [Synthroid] 225 mcg PO Q6AM 04/09/19 Menthol/Zinc Oxide [Calmoseptine Ointment] 1 applic TP TIDP PRN 04/09/19 Omeprazole 20 mg PO Q6AM 04/09/19 Oxycodone HCl [Oxy-Ir 5 mg Tablet] 15 mg PO Q6HP PRN 04/09/19 Pnv,Calcium 72/Iron/Folic Acid [ Vitamin Plus Low Iron] 1 each PO DAILY 04/09/19 Potassium Chloride [Klor-Con 10 Meq Tablet ER] 20 meq PO MOWEFR@1000 04/09/19 Primidone [Mysoline] 50 mg PO Q8 04/09/19 Ramipril [Altace 2.5 mg Capsule] 2.5 mg PO QHS 04/09/19 Cyclobenzaprine HCl [Flexeril 10 mg Tablet] 10 mg PO BIDP PRN 04/20/19 Albuterol Sulfate [Proair HFA Inhalation Aerosol 8.5 gm MDI] 2 puff IH Q4HP PRN 12/08/19 Allopurinol [Zyloprim 100 mg Tablet] 100 mg PO DAILY 12/08/19 Azelastine HCl 1 spray NASL BID 12/08/19 Calcitriol [Rocaltrol 0.25 mcg Capsule] 0.25 mg PO QHS 12/08/19 Dicyclomine HCl [Bentyl 10 mg Capsule] 10 mg PO TID 12/08/19 Diphenoxylate HCl/Atropine [Lomotil 2.5-0.025 mg Tablet] 1 tab PO QIDP PRN 12/07 Nystatin [Mycostatin Topical Powder 15 gm] 1 applic TP TIDP PRN 12/08/19 Promethazine HCl [Phenergan 25 mg Tablet] 25 mg PO Q8HP PRN 12/08/19 Ropinirole HCl [Requip 0.25 mg Tablet] 0.5 mg PO DAILY 12/08/19 Torsemide [Demadex 20 mg Tablet] 40 mg PO DAILY 12/08/19 Allergies/Adverse Reactions: pregabalin [From Lyrica] Allergy (Unknown, Verified 12/08/19 02:35) trazodone HCl [From Desyrel] Allergy (Unknown, Verified 12/08/19 02:35) cefadroxil Allergy (Verified 12/08/19 02:35) Tricyclic Compounds Allergy (Verified 12/08/19 02:35) cephalexin monohydrate [From Keflex] Adverse Reaction (Verified 12/08/19 02:35) nausea, vomiting erythromycin base [Erythromycin Base] Adverse Reaction (Verified 12/08/19 02:35) nausea, vomiting gabapentin Adverse Reaction (Verified 12/08/19 02:35) Nausea guaifenesin [From Entex T] Adverse Reaction (Verified 12/08/19 02:35) Nausea levofloxacin Adverse Reaction (Verified 12/08/19 02:35) pseudoephedrine [From Entex T] Adverse Reaction (Verified 12/08/19 02:35) Nausea sumatriptan Adverse Reaction (Verified 12/08/19 02:35) Review of Systems ROS unobtainable: Other - Limited due to BiPAP All systems: reviewed and no additional remarkable complaints except as stated Constitutional: PRESENT: fatigue Cardiovascular: PRESENT: dyspnea on exertion, edema Respiratory: PRESENT: cough Neurological: PRESENT: abnormal gait Psychiatric: PRESENT: depression Physical Exam Vital Signs: Temp Pulse Resp BP Pulse Ox 98.5 F 15 107/56 L 95 12/08/19 02:36 12/08/19 09:01 12/08/19 09:00 12/08/19 09:01 Intake & Output 12/07/19 12/08/19 12/09/19 06:59 06:59 06:59 Intake Total 1000 Balance 1000 Weight 104.326 kg General appearance: PRESENT: cooperative, well-developed, well-nourished, other - Well-developed morbidly obese 64-year-old female in moderate distress currently on BiPAP. Head exam: PRESENT: atraumatic, normocephalic Eye exam: PRESENT: conjunctiva pale, EOMI, PERRLA. ABSENT: scleral icterus Ear exam: PRESENT: normal external ear exam. ABSENT: bleeding, drainage Mouth exam: PRESENT: dry mucosa, tongue midline Teeth exam: PRESENT: other - Dentures Neck exam: ABSENT: carotid bruit, JVD, lymphadenopathy Respiratory exam: PRESENT: rhonchi - On the right, symmetrical. ABSENT: tachypnea, wheezes Cardiovascular exam: PRESENT: RRR, +S1, +S2. ABSENT: diastolic murmur, irregula r rhythm, systolic murmur GI/Abdominal exam: PRESENT: normal bowel sounds, soft, other - Protuberant abdomen. ABSENT: guarding, tenderness Rectal exam: PRESENT: deferred Extremities exam: PRESENT: pedal edema, +1 edema Musculoskeletal exam: ABSENT: deformity Neurological exam: PRESENT: alert, awake, oriented to person, oriented to place, oriented to time, oriented to situation, CN II-XII grossly intact. ABSENT: altered, motor sensory deficit Psychiatric exam: PRESENT: flat affect. ABSENT: agitated, anxious Focused psych exam: ABSENT: delusional, paranoid, restlessness Skin exam: PRESENT: dry, pallor, warm. ABSENT: mottled, rash Results Laboratory Results: 12/08/19 03:00 12/08/19 03:00 05/12/08/19 12/08/19 03:00 03:00 03:00 WBC 9.4 RBC 3.13 L Hgb 10.1 L Hct 29.1 L MCV 93 MCH 32.1 MCHC 34.5 RDW 15.3 H Plt Count 204 Seg Neutrophils % 84.1 H VBG pH 7.26 L VBG pCO2 69.5 H* VBG HCO3 30.8 VBG Base Excess 1.0 Sodium 130.7 L Potassium 4.7 Chloride 89 L Carbon Dioxide 29 Anion Gap 13 BUN 103 H Creatinine 4.71 H Est GFR ( Amer) 11 L Glucose 145 H Calcium 8.9 Total Bilirubin 0.5 AST 28 Alkaline Phosphatase 109 Total Protein 6.3 Albumin 3.4 L Urine Color Urine Appearance Urine pH Ur Specific [place] Urine Protein Urine Glucose (UA) Urine Ketones Urine Blood Urine Nitrite Ur Leukocyte Esterase Urine WBC (Auto) Urine RBC (Auto) 12/08/19 05:50 WBC RBC Hgb Hct MCV MCH MCHC RDW Plt Count Seg Neutrophils % VBG pH VBG pCO2 VBG HCO3 VBG Base Excess Sodium Potassium Chloride Carbon Dioxide Anion Gap BUN Creatinine Est GFR ( Amer) Glucose Calcium Total Bilirubin AST Alkaline Phosphatase Total Protein Albumin Urine Color YELLOW Urine Appearance SLIGHTLY-CLOUDY Urine pH 5.0 Ur Specific [place] 1.018 Urine Protein NEGATIVE Urine Glucose (UA) NEGATIVE Urine Ketones NEGATIVE Urine Blood NEGATIVE Urine Nitrite NEGATIVE Ur Leukocyte Esterase SMALL H Urine WBC (Auto) 7 Urine RBC (Auto) 1 12/08/19 12/08/19 03:00 03:00 Creatine Kinase 258 H Troponin I < 0.012 NT-Pro-B Natriuret Pep 517 H Impressions: Chest X-Ray 12/08/19 02:49 IMPRESSION: Bilateral interstitial opacities may all be chronic in nature but cannot exclude component of edema or atypical pneumonia. Hip X-Ray 12/08/19 02:50 IMPRESSION: No acute abnormality noted although there is limited visualization of the left femoral neck as above. If there is high clinical concern consider CT. Assessment and Plan - Diagnosis (1) Acute on chronic respiratory failure with hypoxia and hypercapnia Is this a current diagnosis for this admission?: Yes (2) COPD exacerbation Is this a current diagnosis for this admission?: Yes (3) Acute kidney injury superimposed on chronic kidney disease Is this a current diagnosis for this admission?: Yes (4) Hypertension Qualifiers: Hypertension type: essential hypertension Qualified Code(s): I10 - Essential (primary) hypertension Is this a current diagnosis for this admission?: Yes (5) Morbid obesity with BMI of 45.0-49.9, adult Is this a current diagnosis for this admission?: Yes (6) Physical deconditioning Is this a current diagnosis for this admission?: Yes - Plan Summary Summary: 12/08/2019 The patient presented in respiratory failure with hypoxia and hypercapnia. She was treated with BiPAP and improved. We will continue her nebulizer regimen and attempt to wean off of BiPAP and then work on tapering her oxygen. She exhibits significant acute kidney injury on her chronic kidney disease. Dr. Patel will be seeing the patient. We will institute gentle IV fluids and hold her diuretics as well as ALFRED inhibitors. We will need to dose medications according to her renal function and try and avoid nephrotoxic medications. She has chronic anemia of kidney disease. This will be monitored. We will continue her levothyroxine for her hypothyroidism. Other electrolyte abnormalities include hyponatremia and hypomagnesemia. Will monitor these. These are related to her chronic renal failure. We will ask physical therapy to see the patient for her severe deconditioning as well. Much of the deconditioning is related to her morbid obesity with a BMI of 46.2. During her last hospitalization she was very resistant to getting out of the bed and we must make a concerted effort to encourage activity. - Time Time Spent with patient: 35 or more minutes Medications reviewed and adjusted accordingly: Yes Anticipated discharge: Home with Homehealth - Home with home health for possible longterm facility, SNF - Inpatient Certification Based on my medical assessment, after consideration of the patient's comorbidities, presenting symptoms, or acuity I expect that the services needed warrant INPATIENT care.: Yes I certify that my determination is in accordance with my understanding of Medicare's requirements for reasonable and necessary INPATIENT services [42 CFR 412.3e].: Yes Medical Necessity: Need for Nebulizer Therapy and Monitoring of Response, Need for Pain Control, Risk of Complication if Not Cared For in Hospital Post Hospital Care: D/C Line Mover Documentation
[2019-12-08] MEDS: PANTOPRAZOLE SODIUM 20 MG TABLET.DR PO SCH (10:22)
[2019-12-08] MEDS: NORMAL SALINE 1000 ML 1,000 ML IV PRN (10:23)
--- NOTE | 2019-12-08 11:33 | PDOC CONSULTATION ---
Consultation Consult Date: 12/08/19 Provider Consulted: ABRAHAM BLANCO Consult reason:: JANET/CKD History of Present Illness Admission Date/PCP: 12/08/19 07:49 MARK HAILE MD History of Present Illness: LEATHA ATKINS is a 64 year old lady with history of chronic kidney disease stage III, COPD, morbid obesity, hypertension, hypothyroidism and recorded CHF who presented to the emergency room with worsening shortness of breath and weakness. Patient fell 3 days ago at home and landed on her left hip but did not have a fracture. Reportedly in the emergency room she was just laying in bed for the most part since then with decreased solid intake. She tells me that she still drinks 2-3 of her water container approximately 30 to 48 ounces but we cannot be for sure. She has her usual cough but not worse. She denies any chest pains to me. Patient is on home oxygen at 2 L usually but recently with the worsening shortness of breath she increase it to 4 L. She has been using her albuterol nebulization treatment but she continues to have short of breath shortness of breath so she presented herself to the emergency room. Her chest x-ray showed bilateral interstitial opacities which may all be chronic but cannot exclude edema or atypical pneumonia. Your hip x-ray showed no acute abnormality. Her blood pressure has been on the low side anywhere between 90s to 100s over 50s to 60s since admission. Lowest blood pressure recorded was 87/50. Her ABG showed a PCO2 of 69.5 with pH of 7.26 and bicarbonate of 30.8. In the emergency room she was given albuterol nebulization treatment, a dose of Solu-Medrol 125 mg IV and was placed on BiPAP. She was temporarily on nasal cannula when I see her this time and she appears to be not in any distress. She was also started on normal saline at 150 mL an hour. Patient also presented with elevated BUN of 103 with creatinine of 4.71 and EGFR of 9. On November 23 she had a BUN of 39, creatinine 1.56 with GFR of 33 which is her usual baseline. Review of records revealed that her creatinine usually ranges anywhere between 1.5-2 with EGFR of 25 to 30s. She had a phone visit with our physician respiratory care assistant, Ambrose Guzman in our office last week and she was instructed to stop her potassium chloride and her metolazone. She continues to take her torsemide and ramipril though until this time prior to admission. She is making urine. Patient admits that she is incontinent. She however noticed a decreased urine output for the last few days. She has one episode of vomiting. She denies any nausea no diarrhea at this time. Past Medical History Cardiac Medical History: Reports: CHF-Diastolic, Hyperlipidemia, Hypertension- primary Pulmonary Medical History: Reports: Asthma, Bronchitis, Chronic Obstructive Pulmonary Disease (COPD), Pneumonia - Several admissions within the last 12 months, Respiratory Failure Endocrine Medical History: Reports: Hypothyroidism, Obesity Renal/ Medical History: Reports: Chronic Kidney Disease Stage III Musculoskeltal Medical History: Reports: Arthritis Psychiatric Medical History: Reports: Depression Hematology Medical History: Reports Anemia Past Surgical History Past Surgical History: Reports: Orthopedic Surgery - Rigth Wrist fracture repair, Tubal Ligation Social History Information Source: Patient Lives with: Spouse/Significant other Smoking Status: Former Smoker Last Time Smoked: 1999 Frequency of Alcohol Use: Social Hx Recreational Drug Use: No Drugs: None Hx Prescription Drug Abuse: No - Advance Directive Resuscitation Status: Full Code Family History Family History: CAD - Mother, DM - Father, Hypertension - Father, Other - Emphysema on her mother Parental Family History Reviewed: Yes Children Family History Reviewed: Yes Sibling(s) Family History Reviewed.: Yes Medication/Allergy Home Medications: Albuterol Sulfate [Ventolin 0.083% Neb 2.5 mg/3 mL Ampul] 1 vial NEB RTQ4HP PRN 04/09/19 Alprazolam [Xanax 0.5 mg Tablet] 0.5 mg PO QID 04/09/19 Atorvastatin Calcium [Lipitor 20 mg Tablet] 20 mg PO DAILY 04/09/19 Donepezil HCl [Aricept] 10 mg PO QHS 04/09/19 Duloxetine HCl [Cymbalta 30 mg Capsule.dr] 60 mg PO DAILY 04/09/19 Ergocalciferol (Vitamin D2) [Drisdol 50,000 unit (1.25MG) Capsule] 50,000 unit PO MO@1000 04/09/19 Eszopiclone [Lunesta] 3 mg PO QHS 04/09/19 Fluoxetine HCl [Prozac 20 mg Capsule] 80 mg PO DAILY 04/09/19 Fluticasone Propionate [Flonase Nasal [place] 50 Mcg/[place] 16 gm] 1 spray NASL DAILY 04/09/19 Fluticasone/Umeclidin/Vilanter [Trelegy 100-62.5-25 Mcg Ellipta 14 Dose/Dpi] 1 puff IH DAILY 04/09/19 Fondaparinux Sodium [Arixtra Inj 7.5 mg/0.6 ml Disp. Syrin] 7.5 mg SUBCUT DAILY 04/09/19 Levocetirizine Dihydrochloride [Xyzal] 5 mg PO QHS 04/09/19 Levothyroxine Sodium [Synthroid] 225 mcg PO Q6AM 04/09/19 Menthol/Zinc Oxide [Calmoseptine Ointment] 1 applic TP TIDP PRN 04/09/19 Omeprazole 20 mg PO Q6AM 04/09/19 Oxycodone HCl [Oxy-Ir 5 mg Tablet] 15 mg PO Q6HP PRN 04/09/19 Pnv,Calcium 72/Iron/Folic Acid [ Vitamin Plus Low Iron] 1 each PO DAILY 04/09/19 Potassium Chloride [Klor-Con 10 Meq Tablet ER] 20 meq PO MOWEFR@1000 04/09/19 Primidone [Mysoline] 50 mg PO Q8 04/09/19 Ramipril [Altace 2.5 mg Capsule] 2.5 mg PO QHS 04/09/19 Cyclobenzaprine HCl [Flexeril 10 mg Tablet] 10 mg PO BIDP PRN 04/20/19 Albuterol Sulfate [Proair HFA Inhalation Aerosol 8.5 gm MDI] 2 puff IH Q4HP PRN 12/08/19 Allopurinol [Zyloprim 100 mg Tablet] 100 mg PO DAILY 12/08/19 Azelastine HCl 1 spray NASL BID 12/08/19 Calcitriol [Rocaltrol 0.25 mcg Capsule] 0.25 mg PO QHS 12/08/19 Dicyclomine HCl [Bentyl 10 mg Capsule] 10 mg PO TID 12/08/19 Diphenoxylate HCl/Atropine [Lomotil 2.5-0.025 mg Tablet] 1 tab PO QIDP PRN 12/08/19 Nystatin [Mycostatin Topical Powder 15 gm] 1 applic TP TIDP PRN 12/08/19 Promethazine HCl [Phenergan 25 mg Tablet] 25 mg PO Q8HP PRN 12/08/19 Ropinirole HCl [Requip 0.25 mg Tablet] 0.5 mg PO DAILY 12/08/19 Torsemide [Demadex 20 mg Tablet] 40 mg PO DAILY 12/08/19 Allergies/Adverse Reactions: pregabalin [From Lyrica] Allergy (Unknown, Verified 12/08/19 02:35) trazodone HCl [From Desyrel] Allergy (Unknown, Verified 12/08/19 02:35) cefadroxil Allergy (Verified 12/08/19 02:35) Tricyclic Compounds Allergy (Verified 12/08/19 02:35) cephalexin monohydrate [From Keflex] Adverse Reaction (Verified 12/08/19 02:35) nausea, vomiting erythromycin base [Erythromycin Base] Adverse Reaction (Verified 12/08/19 02:35) nausea, vomiting gabapentin Adverse Reaction (Verified 12/08/19 02:35) Nausea guaifenesin [From Entex T] Adverse Reaction (Verified 12/08/19 02:35) Nausea levofloxacin Adverse Reaction (Verified 12/08/19 02:35) pseudoephedrine [From Entex T] Adverse Reaction (Verified 12/08/19 02:35) Nausea sumatriptan Adverse Reaction (Verified 12/08/19 02:35) Review of Systems All systems: reviewed and no additional remarkable complaints except as stated Review of Systems: Constitutional: ABSENT: chills, fatigue, fever(s), headache(s), weight gain, w eight loss Eyes: ABSENT: visual disturbances Ears: ABSENT: hearing changes Cardiovascular: ABSENT: chest pain, edema, orthropnea, palpitations Respiratory: ABSENT: Hemoptysis; usual nonproductive cough intermittently, shortness of breath Gastrointestinal: ABSENT: abdominal pain, constipation, diarrhea, hematemesis, hematochezia, nausea; one episode vomiting Genitourinary: ABSENT: dysuria, hematuria Musculoskeletal: ABSENT: joint swelling Integumentary: ABSENT: rash, wounds Neurological: ABSENT: abnormal gait, abnormal speech, confusion, dizziness, focal weakness, numbness, syncope Psychiatric: ABSENT: anxiety, depression Endocrine: ABSENT: cold intolerance, heat intolerance, polydipsia, polyuria Hematologic/Lymphatic: ABSENT: easy bleeding, easy bruising, lymphadenopathy Physical Exam Vital Signs: Temp Pulse Resp BP Pulse Ox 98.5 F 15 107/56 L 95 12/08/19 02:36 12/08/19 09:01 12/08/19 09:00 12/08/19 09:01 Intake & Output 12/07/19 12/08/19 12/09/19 06:59 06:59 06:59 Intake Total 1000 Balance 1000 Weight 104.326 kg Exam: General appearance: No acute distress, cooperative, well-developed, well- nourished, morbidly obese Head exam: PRESENT: atraumatic, normocephalic Eye exam: PRESENT: Conjunctiva slightly pale, EOMI, PERRLA. ABSENT: conjunct ival injection, scleral icterus Mouth exam: PRESENT: moist, neck supple, tongue midline Neck exam: PRESENT: full ROM. ABSENT: carotid bruit, JVD, lymphadenopathy, thyromegaly Respiratory exam: PRESENT: Diminished to auscultation bilaterally. ABSENT: rales, rhonchi, stridor, wheezes Cardiovascular exam: PRESENT: RRR, +S1, +S2. ABSENT: systolic murmur Pulses: PRESENT: normal radial pulses, normal dorsalis pedis pulses GI/Abdominal exam: PRESENT: normal bowel sounds, soft. ABSENT: guarding, mass, tenderness Rectal exam: Deferred Extremities exam: PRESENT: full ROM. Trace bilateral lower extremity pitting edema ABSENT: calf tenderness Musculoskeletal: PRESENT: full ROM. ABSENT: deformity Neurological exam: PRESENT: alert, Awake, Oriented to person, Oriented to place, Oriented to time, reflexes normal, CN II-XII grossly intact. ABSENT: motor sensory deficit Psychiatric exam: PRESENT: appropriate affect, normal mood. ABSENT: homicidal ideation, suicidal ideation Skin exam: PRESENT: intact, dry, warm. ABSENT: rash Results Laboratory Results: 12/08/19 03:00 12/08/19 03:00 12/08/19 12/08/19 12/08/19 03:00 03:00 03:00 WBC 9.4 RBC 3.13 L Hgb 10.1 L Hct 29.1 L MCV 93 MCH 32.1 MCHC 34.5 RDW 15.3 H Plt Count 204 Seg Neutrophils % 84.1 H VBG pH 7.26 L VBG pCO2 69.5 H* VBG HCO3 30.8 VBG Base Excess 1.0 Sodium 130.7 L Potassium 4.7 Chloride 89 L Carbon Dioxide 29 Anion Gap 13 BUN 103 H Creatinine 4.71 H Est GFR ( Amer) 11 L Glucose 145 H Calcium 8.9 Total Bilirubin 0.5 AST 28 Alkaline Phosphatase 109 Total Protein 6.3 Albumin 3.4 L Urine Color Urine Appearance Urine pH Ur Specific [place] Urine Protein Urine Glucose (UA) Urine Ketones Urine Blood Urine Nitrite Ur Leukocyte Esterase Urine WBC (Auto) Urine RBC (Auto) 12/08/19 05:50 WBC RBC Hgb Hct MCV MCH MCHC RDW Plt Count Seg Neutrophils % VBG pH VBG pCO2 VBG HCO3 VBG Base Excess Sodium Potassium Chloride Carbon Dioxide Anion Gap BUN Creatinine Est GFR ( Amer) Glucose Calcium Total Bilirubin AST Alkaline Phosphatase Total Protein Albumin Urine Color YELLOW Urine Appearance SLIGHTLY-CLOUDY Urine pH 5.0 Ur Specific [place] 1.018 Urine Protein NEGATIVE Urine Glucose (UA) NEGATIVE Urine Ketones NEGATIVE Urine Blood NEGATIVE Urine Nitrite NEGATIVE Ur Leukocyte Esterase SMALL H Urine WBC (Auto) 7 Urine RBC (Auto) 1 12/08/19 12/08/19 03:00 03:00 Creatine Kinase 258 H Troponin I < 0.012 NT-Pro-B Natriuret Pep 517 H Impressions: Chest X-Ray 12/08/19 02:49 IMPRESSION: Bilateral interstitial opacities may all be chronic in nature but cannot exclude component of edema or atypical pneumonia. Hip X-Ray 12/08/19 02:50 IMPRESSION: No acute abnormality noted although there is limited visualization of the left femoral neck as above. If there is high clinical concern consider CT. Assessment & Plan - Diagnosis (1) Acute on chronic respiratory failure Qualifiers: Respiratory failure complication: hypercapnia Qualified Code(s): J96.22 - Acute and chronic respiratory failure with hypercapnia Is this a current diagnosis for this admission?: Yes Plan: Most likely secondary to COPD exacerbation. Patient presented with hypoxia and hypercarbia. Management per hospitalist care of Dr. Naranjo. (2) Acute kidney injury superimposed on chronic kidney disease Is this a current diagnosis for this admission?: Yes Plan: High likelihood for acute prerenal azotemia secondary to dehydration due to decreased oral intake. Agree with holding diuretics, and ALFRED inhibitor. Agree with IV fluid hydration with current orders. Avoid nephrotoxic medications. There is no indication for any acute renal replacement therapy at this time. Continue to monitor kidney function and electrolytes. (3) Hyponatremia Is this a current diagnosis for this admission?: Yes Plan: Patient has low sodium and low chloride consistent with volume depletion. IV fluid hydration with normal saline will hopefully improve this. (4) Chronic obstructive pulmonary disease with acute exacerbation Is this a current diagnosis for this admission?: Yes Plan: Per hospitalist service. (5) Hypotension Qualifiers: Hypotension type: unspecified hypotension type Qualified Code(s): I95.9 - Hypotension, unspecified Is this a current diagnosis for this admission?: Yes Plan: This is consistent with volume depletion. On IV fluids. (6) Anemia in chronic kidney disease Qualifiers: Chronic kidney disease stage: stage 3 (moderate) Qualified Code(s): N18.3 - Chronic kidney disease, stage 3 (moderate); D63.1 - Anemia in chronic kidney disease Is this a current diagnosis for this admission?: Yes (7) Chronic kidney disease, stage 3 Is this a current diagnosis for this admission?: Yes Plan: Baseline creatinine around 1.5-2 with EGFR baseline at 25 to 30s. Patient is no significant proteinuria no microhematuria. (8) Obesity Qualifiers: Obesity type: due to excess calories Serious obesity comorbidity presence: unspecified whether serious comorbidity present Body mass index: BMI 40.0-44.9 Is this a current diagnosis for this admission?: Yes - Notes Notes: Thank you very much for this consultation. We will follow patient with you. - Time Time Spent: 50 to 70 Minutes
[2019-12-08] MEDS ORDERED: HEPARIN SOD (PORCINE) 5,000 UNIT/ML 1 ML VIAL SUBCUT SCH (14:00)
[2019-12-08] MEDS: IPRATROPIUM/ALBUTEROL 0.5-2.5 MG/3 ML AMPUL NEB SCH ×2 (14:02→20:47)
[2019-12-08] MEDS ORDERED: PROMETHAZINE HCL 25 MG TABLET PO PRN (17:01)
[2019-12-08] MEDS ORDERED: DIPHENOXYLATE HCL/ATROP SULF 2.5-0.025 MG TABLET PO PRN (17:01)
[2019-12-08] MEDS ORDERED: NYSTATIN TOPICAL POWDER 15 GM TP PRN (17:01)
[2019-12-08] MEDS: DICYCLOMINE HCL 10 MG CAPSULE PO SCH (17:44)
[2019-12-08] MEDS: ALPRAZOLAM 0.5 MG TABLET PO SCH ×2 (17:44→23:23)
[2019-12-08] MEDS: OXYCODONE HCL IR 5 MG TABLET PO PRN ×2 (17:44→23:23)
[2019-12-08] MEDS ORDERED: (PENDING PHARMACY ID) (Azelastine Hcl [Azelastine Hcl] 1 SPRAY) NASL SCH (18:00)
[2019-12-08] MEDS: BUDESONIDE NEB 0.5 MG/2 ML AMPUL NEB SCH (20:47)
[2019-12-08] MEDS: DONEPEZIL HCL 5 MG TABLET PO SCH (21:15)
[2019-12-08] MEDS: CETIRIZINE 5 MG TABLET PO SCH (21:15)
[2019-12-08] MEDS: ZOLPIDEM TARTRATE 5 MG TABLET PO SCH (21:18)
[2019-12-08] MEDS: PRIMIDONE 50 MG TABLET PO SCH (21:18)
[2019-12-08] MEDS ORDERED: (PENDING PHARMACY ID) (Donepezil Hcl [Aricept] 10 MG) PO SCH (22:00)
[2019-12-08] MEDS ORDERED: CALCITRIOL 0.25 MCG CAPSULE PO SCH (22:00)
[2019-12-08] MEDS: CALCITRIOL 0.25 MCG CAPSULE PO SCH (23:15)
[2019-12-08] MEDS: CYCLOBENZAPRINE HCL 10 MG TABLET PO PRN (23:23)
[2019-12-09] MEDS: IPRATROPIUM/ALBUTEROL 0.5-2.5 MG/3 ML AMPUL NEB SCH ×4 (02:46→19:54)
[2019-12-09] MEDS: LEVOTHYROXINE SODIUM 0.1 MG TABLET PO SCH (05:40)
[2019-12-09] MEDS: OXYCODONE HCL IR 5 MG TABLET PO PRN ×3 (05:41→21:48)
[2019-12-09] MEDS: LEVOTHYROXINE SODIUM 0.025 MG TABLET PO SCH (05:41)
[2019-12-09] MEDS: PRIMIDONE 50 MG TABLET PO SCH ×3 (05:41→21:41)
[2019-12-09] MEDS: PANTOPRAZOLE SODIUM 20 MG TABLET.DR PO SCH (05:41)
[2019-12-09] MEDS: ALPRAZOLAM 0.5 MG TABLET PO SCH ×4 (05:41→23:21)
[2019-12-09] MEDS ORDERED: LEVOTHYROXINE SODIUM 0.05 MG TABLET PO SCH (06:00)
[2019-12-09 06:24] LABS: ABSOLUTE EOSINOPHILS # (AUTO) 0.3 10^3/uL (0.0-0.6); ABSOLUTE LYMPHOCYTES (AUTO) 1.1 10^3/uL (0.5-4.7); ABSOLUTE MONOCYTES (AUTO) 0.7 10^3/uL (0.1-1.4); BASOPHILS % (AUTO) 0.2 % (0-2); EOSINOPHILS % (AUTO) 3.2 % (0-6); HEMATOCRIT 28.2 % (36.0-47.0); HEMOGLOBIN 9.5 g/dL (12.0-15.5); LYMPHOCYTES % (AUTO) 12.6 % (13-45); MEAN CORPUSCULAR HEMOGLOBIN 31.2 pg (27.0-33.4); MEAN CORPUSCULAR HGB CONC 33.8 g/dL (32.0-36.0); MEAN CORPUSCULAR VOLUME 92 fl (80-97); MONOCYTES % (AUTO) 7.7 % (3-13); PLATELET COUNT 183 10^3/uL (150-450); RED BLOOD COUNT 3.06 10^6/uL (3.72-5.28); RED CELL DISTRIBUTION WIDTH 14.7 % (11.5-14.0); SEGMENTED NEUTROPHILS % (AUTO) 76.3 % (42-78); TOTAL CELLS COUNTED % (AUTO) 100 %; WHITE BLOOD COUNT 9.1 10^3/uL (4.0-10.5)
[2019-12-09 06:47] LABS: ALBUMIN 3.4 g/dL (3.5-5.0); ANION GAP 12 (5-19); BLOOD UREA NITROGEN 98 mg/dL (7-20); CALCIUM 8.7 mg/dL (8.4-10.2); CARBON DIOXIDE 25 mmol/L (22-30); CHLORIDE 94 mmol/L (98-107); GLUCOSE 104 mg/dL (75-110); PHOSPHORUS 5.9 mg/dL (2.5-4.5); POTASSIUM 4.4 mmol/L (3.6-5.0)
[2019-12-09 06:53] LABS: ARTERIAL BLOOD H2CO3 1.45 mmol/L (1.05-1.35); ARTERIAL BLOOD HCO3 24.3 mmol/L (20-24); ARTERIAL BLOOD O2 SATURATION 98.3 % (94-98); ARTERIAL BLOOD PCO2 48.1 mmHg (35-45); ARTERIAL BLOOD PH 7.32 (7.35-7.45); ARTERIAL BLOOD PO2 128.9 mmHg (80-100); ARTERIAL BLOOD TOTAL CO2 25.8 mmol/L (21-25)
[2019-12-09 06:54] LABS: ARTERIAL BLOOD FIO2 36%
[2019-12-09] MEDS: BUDESONIDE NEB 0.5 MG/2 ML AMPUL NEB SCH ×2 (08:16→19:54)
--- NOTE | 2019-12-09 09:34 | RADIOLOGY REPORT (SQ) ---
EXAM DESCRIPTION: CHEST SINGLE VIEW IMAGES COMPLETED DATE/TIME: 12/09/2019 9:22 am REASON FOR STUDY: Respiratory failure COMPARISON: 12/08/2019 EXAM PARAMETERS: NUMBER OF VIEWS: One view. TECHNIQUE: Single frontal radiographic view of the chest acquired. RADIATION DOSE: NA LIMITATIONS: None. FINDINGS: LUNGS AND PLEURA: Aeration is significantly improved bilaterally. Mild residual interstit ial airspace disease in the right upper lobe. No effusions. MEDIASTINUM AND HILAR STRUCTURES: No masses. Contour normal. HEART AND VASCULAR STRUCTURES: Stable in appearance. BONES: No acute findings. HARDWARE: None in the chest. OTHER: No other significant finding. IMPRESSION: Significant improvement the chest with minimal residual right upper lobe interstitial ai rspace disease. TECHNICAL DOCUMENTATION: JOB ID: [id number] 2010 [employer]- All Rights Reserved Reading location - IP/workstation name: [email or web address]
[2019-12-09] MEDS: FLUOXETINE HCL 20 MG CAPSULE PO SCH (09:41)
[2019-12-09] MEDS: DULOXETINE HCL 30 MG CAPSULE.DR PO SCH (09:42)
[2019-12-09] MEDS: ROPINIROLE HCL 0.25 MG TABLET PO SCH (09:42)
[2019-12-09] MEDS: FLUTICASONE NASAL SPRAY 50 MCG/SPRY 120 SPRAY/16 GM NASL SCH (09:42)
[2019-12-09] MEDS: DICYCLOMINE HCL 10 MG CAPSULE PO SCH ×3 (09:42→18:09)
[2019-12-09] MEDS: ATORVASTATIN CALCIUM 20 MG TABLET PO SCH (09:42)
[2019-12-09] MEDS: ALLOPURINOL 100 MG TABLET PO SCH (09:42)
[2019-12-09] MEDS: PRENATAL VITAMIN W DHA CAPSULE PO SCH (09:42)
[2019-12-09] MEDS: FONDAPARINUX SODIUM INJ 7.5 MG/0.6 ML DISP.SYRIN SUBCUT SCH (09:43)
[2019-12-09] MEDS: AZELASTINE NASAL SPRAY NASL SCH ×2 (09:43→18:09)
[2019-12-09] MEDS ORDERED: PNV CALCIUM PO SCH (10:00)
[2019-12-09] MEDS ORDERED: [UNRECOGNIZED DRUG - OTHER] PO SCH (10:00)
[2019-12-09] MEDS ORDERED: FOLIC ACID PO SCH (10:00)
[2019-12-09] MEDS ORDERED: IRON PO SCH (10:00)
--- NOTE | 2019-12-09 11:03 | PDOC PROGRESS REPORT ---
Subjective Progress Note for:: 12/09/19 Subjective:: Patient states that she is coughing out some creamy phlegm. She said her breathing is the same and has not changed and she is still short of breath. Her blood pressure is improved though. She made about 675 mL of urine output. She is positive cumulative balance of around 1700 mL from what is recorded. Her IV fluids was decreased from 150 to 100 mL/h. Reason For Visit: ACUTE ON CHRONIC KIDNEY FAILURE,ACUTE ON CHRONIC Physical Exam Vital Signs: Temp Pulse Resp BP Pulse Ox 97.9 F 93 14 107/45 L 100 12/09/19 07:37 12/09/19 08:20 12/09/19 08:21 12/09/19 07:37 12/09/19 08:21 Intake & Output 12/08/19 12/09/19 12/10/19 06:59 06:59 06:59 Intake Total 1000 1391 Output Total 675 Balance 1000 716 Weight 104.326 kg 122.1 kg Exam: General appearance: PRESENT: no acute distress, cooperative, well-developed, well-nourished Head exam: PRESENT: atraumatic, normocephalic Eye exam: PRESENT: conjunctiva slightly pale, PERRLA. ABSENT: scleral icterus Neck exam: ABSENT: JVD Respiratory exam: PRESENT: Diminished breath sounds. ABSENT: crackles, rales, rhonchi, unlabored, wheezes Cardiovascular exam: PRESENT: Regular rate rhythm -+S1, +S2. ABSENT: diastolic murmur, systolic murmur GI/Abdominal exam: PRESENT: normal bowel sounds, soft. ABSENT: guarding, mass, tenderness Extremities exam: Grade 1 bilateral lower extremity pitting edema Neurological exam: PRESENT: alert, awake, oriented to person, place and time. Skin exam: PRESENT: dry, warm, Results Laboratory Results: 12/09/19 05:36 12/09/19 05:36 12/09/19 12/09/19 12/09/19 05:36 05:36 06:40 WBC 9.1 RBC 3.06 L Hgb 9.5 L Hct 28.2 L MCV 92 MCH 31.2 MCHC 33.8 RDW 14.7 H Plt Count 183 Seg Neutrophils % 76.3 Carbonic Acid 1.45 H HCO3/H2CO3 Ratio 16:1 ABG pH 7.32 L ABG pCO2 48.1 H ABG pO2 128.9 H ABG HCO3 24.3 H ABG O2 Saturation 98.3 H ABG Base Excess -2.0 FiO2 36% Sodium 131.3 L Potassium 4.4 Chloride 94 L Carbon Dioxide 25 Anion Gap 12 BUN 98 H Creatinine 3.86 H Est GFR ( Amer) 14 L Glucose 104 Calcium 8.7 Phosphorus 5.9 H Magnesium 2.8 H Albumin 3.4 L 12/08/19 12/08/19 03:00 03:00 Creatine Kinase 258 H Troponin I < 0.012 NT-Pro-B Natriuret Pep 517 H Impressions: Hip X-Ray 12/08/19 02:50 IMPRESSION: No acute abnormality noted although there is limited visualization of the left femoral neck as above. If there is high clinical concern consider CT. Chest X-Ray 12/09/19 06:00 IMPRESSION: Significant improvement the chest with minimal residual right upper lobe interstitial airspace disease. Assessment & Plan - Diagnosis (1) Acute kidney injury superimposed on chronic kidney disease Is this a current diagnosis for this admission?: Yes Plan: Due to acute prerenal azotemia. Kidney function currently improving with creatinine today of 3.86 from 4.71 upon admission. She is passing some urine. Continue cautious and gentle IV fluid hydration and continue to monitor kidney function. She does not need any renal replacement therapy. We will continue to monitor. (2) Acute on chronic respiratory failure Qualifiers: Respiratory failure complication: hypercapnia Qualified Code(s): J96.22 - Acute and chronic respiratory failure with hypercapnia Is this a current diagnosis for this admission?: Yes Plan: Secondary to COPD exacerbation. Defer to hospitalist. (3) Hyponatremia Is this a current diagnosis for this admission?: Yes Plan: Very minimally improved today with IV fluid hydration. I think this is due to hypovolemia and volume depletion. (4) Chronic obstructive pulmonary disease with acute exacerbation Is this a current diagnosis for this admission?: Yes (5) Hypotension Qualifiers: Hypotension type: unspecified hypotension type Qualified Code(s): I95.9 - Hypotension, unspecified Is this a current diagnosis for this admission?: Yes Plan: Improved with hydration. (6) Anemia in chronic kidney disease Qualifiers: Chronic kidney disease stage: stage 3 (moderate) Qualified Code(s): N18.3 - Chronic kidney disease, stage 3 (moderate); D63.1 - Anemia in chronic kidney disease Is this a current diagnosis for this admission?: Yes Plan: Hemoglobin lower today likely dilutional due to effect of IV fluids. (7) Chronic kidney disease, stage 3 Is this a current diagnosis for this admission?: Yes Plan: With baseline creatinine of 1.5-2.0 and a GFR of 25-30. (8) Obesity Qualifiers: Obesity type: due to excess calories Serious obesity comorbidity presence: unspecified whether serious comorbidity present Body mass index: BMI 40.0-44.9 Is this a current diagnosis for this admission?: Yes - Time Time with patient: 15-25 minutes
[2019-12-09] MEDS: NORMAL SALINE 1000 ML 1,000 ML IV PRN (13:38)
[2019-12-09] MEDS ORDERED: NORMAL SALINE 1000 ML 1,000 ML IV PRN (13:45)
--- NOTE | 2019-12-09 14:17 | PDOC PROGRESS REPORT ---
Subjective Progress Note for:: 12/09/19 Subjective:: Patient resting in bed. Admits that she is feeling slightly better than yesterday. Despite her acute kidney injury there are concerns about her volume status. Reason For Visit: ACUTE ON CHRONIC KIDNEY FAILURE,ACUTE ON CHRONIC Physical Exam Vital Signs: Temp Pulse Resp BP Pulse Ox 98.4 F 91 18 117/50 L 97 12/09/19 11:09 12/09/19 13:39 12/09/19 13:39 12/09/19 11:09 12/09/19 13:39 Intake & Output 12/08/19 12/09/19 12/10/19 06:59 06:59 06:59 Intake Total 1000 2391 480 Output Total 675 300 Balance 1000 1716 180 Weight 104.326 kg 122.1 kg General appearance: PRESENT: cooperative, morbidly obese, well-developed, well- nourished Head exam: PRESENT: atraumatic, normocephalic Eye exam: PRESENT: conjunctiva pale, EOMI Ear exam: PRESENT: normal external ear exam. ABSENT: bleeding, drainage Mouth exam: PRESENT: moist, tongue midline Respiratory exam: PRESENT: decreased breath sounds - Bases, symmetrical, unlabored, wheezes - Occasional expiratory wheeze. ABSENT: rhonchi, tachypnea Cardiovascular exam: PRESENT: RRR, +S1, +S2 GI/Abdominal exam: PRESENT: normal bowel sounds, soft, other - Pendulous abdomen. ABSENT: tenderness Rectal exam: PRESENT: deferred Gentrourinary exam: PRESENT: indwelling catheter Extremities exam: PRESENT: +2 edema Musculoskeletal exam: ABSENT: ambulatory - Also refused to participate with physical therapy Neurological exam: PRESENT: alert, awake, oriented to person, oriented to place, oriented to time, oriented to situation, CN II-XII grossly intact. ABSENT: altered Psychiatric exam: PRESENT: flat affect. ABSENT: agitated, anxious Focused psych exam: ABSENT: delusional, paranoid, restlessness Skin exam: PRESENT: dry, normal color, warm. ABSENT: rash Results Laboratory Results: 12/09/19 05:36 12/09/19 05:36 12/09/19 12/09/19 12/09/19 05:36 05:36 06:40 WBC 9.1 RBC 3.06 L Hgb 9.5 L Hct 28.2 L MCV 92 MCH 31.2 MCHC 33.8 RDW 14.7 H Plt Count 183 Seg Neutrophils % 76.3 Carbonic Acid 1.45 H HCO3/H2CO3 Ratio 16:1 ABG pH 7.32 L ABG pCO2 48.1 H ABG pO2 128.9 H ABG HCO3 24.3 H ABG O2 Saturation 98.3 H ABG Base Excess -2.0 FiO2 36% Sodium 131.3 L Potassium 4.4 Chloride 94 L Carbon Dioxide 25 Anion Gap 12 BUN 98 H Creatinine 3.86 H Est GFR ( Amer) 14 L Glucose 104 Calcium 8.7 Phosphorus 5.9 H Magnesium 2.8 H Albumin 3.4 L 12/08/19 12/08/19 03:00 03:00 Creatine Kinase 258 H Troponin I < 0.012 NT-Pro-B Natriuret Pep 517 H Impressions: Hip X-Ray 12/08/19 02:50 IMPRESSION: No acute abnormality noted although there is limited visualization of the left femoral neck as above. If there is high clinical concern consider CT. Chest X-Ray 12/09/19 06:00 IMPRESSION: Significant improvement the chest with minimal residual right upper lobe interstitial airspace disease. Assessment and Plan - Diagnosis (1) Acute on chronic respiratory failure with hypoxia and hypercapnia Is this a current diagnosis for this admission?: Yes (2) COPD exacerbation Is this a current diagnosis for this admission?: Yes (3) Acute kidney injury superimposed on chronic kidney disease Is this a current diagnosis for this admission?: Yes (4) Hypertension Qualifiers: Hypertension type: essential hypertension Qualified Code(s): I10 - Essential (primary) hypertension Is this a current diagnosis for this admission?: Yes (5) Morbid obesity with BMI of 45.0-49.9, adult Is this a current diagnosis for this admission?: Yes (6) Physical deconditioning Is this a current diagnosis for this admission?: Yes (7) Chronic back pain Qualifiers: Back pain location: low back pain Is this a current diagnosis for this admission?: Yes - Plan Summary Summary: 12/08/2019 The patient presented in respiratory failure with hypoxia and hypercapnia. She was treated with BiPAP and improved. We will continue her nebulizer regimen and attempt to wean off of BiPAP and then work on tapering her oxygen. She exhibits significant acute kidney injury on her chronic kidney disease. Dr. Patel will be seeing the patient. We will institute gentle IV fluids and hold her diuretics as well as ALFRED inhibitors. We will need to dose medications acc ording to her renal function and try and avoid nephrotoxic medications. She has chronic anemia of kidney disease. This will be monitored. We will continue her levothyroxine for her hypothyroidism. Other electrolyte abnormalities include hyponatremia and hypomagnesemia. Will monitor these. These are related to her chronic renal failure. We will ask physical therapy to see the patient for her severe deconditioning as well. Much of the deconditioning is related to her morbid obesity with a BMI of 46.2. During her last hospitalization she was very resistant to getting out of the bed and we must make a concerted effort to encourage activity. 12/09/2019 The patient is on nasal cannula. The acute on chronic respiratory failure is improving. We will try to maintain oxygen saturation of 88 to 92% taking into account her underlying COPD. We will continue the nebulizer treatments. She does not require antibiotics for a respiratory infection. By holding her diuretics and ALFRED inhibitors her serum creatinine is improving. We will continue IV fluids. We will need to be careful with her reduced renal function as it relates to fluid retention while rehydrating. We will continue to monitor electrolytes. Serum sodium is still low. There are other electrolyte abnormalities. Even without her Demadex, Zaroxolyn ALFRED inhibitor her blood pressure has been low. We will hold off resuming these medications until the kidneys improve and her blood pressure can tolerate resuming the medication. - Time Time Spent with patient: 15-24 minutes Medications reviewed and adjusted accordingly: Yes Anticipated discharge: Home with Homehealth, SNF, Other - Not sure at this point Within: Other - Unknown
[2019-12-09] MEDS ORDERED: FUROSEMIDE INJ/PF 40 MG/4 ML SDV IV ONE (18:00)
[2019-12-09] MEDS: ZOLPIDEM TARTRATE 5 MG TABLET PO SCH (21:30)
[2019-12-09] MEDS: DONEPEZIL HCL 5 MG TABLET PO SCH ×2 (21:39→21:43)
[2019-12-09] MEDS: CETIRIZINE 5 MG TABLET PO SCH (21:41)
[2019-12-09] MEDS: CALCITRIOL 0.25 MCG CAPSULE PO SCH (21:41)
[2019-12-10] MEDS: IPRATROPIUM/ALBUTEROL 0.5-2.5 MG/3 ML AMPUL NEB SCH ×4 (02:22→20:20)
[2019-12-10] MEDS: PANTOPRAZOLE SODIUM 20 MG TABLET.DR PO SCH (05:24)
[2019-12-10] MEDS: ALPRAZOLAM 0.5 MG TABLET PO SCH ×4 (05:24→23:13)
[2019-12-10] MEDS: LEVOTHYROXINE SODIUM 0.025 MG TABLET PO SCH (05:24)
[2019-12-10] MEDS: PRIMIDONE 50 MG TABLET PO SCH ×3 (05:25→21:53)
[2019-12-10] MEDS: LEVOTHYROXINE SODIUM 0.1 MG TABLET PO SCH (05:25)
[2019-12-10] MEDS: OXYCODONE HCL IR 5 MG TABLET PO PRN ×3 (05:29→23:25)
[2019-12-10 05:58] LABS: ALBUMIN 3.3 g/dL (3.5-5.0); ANION GAP 11 (5-19); BLOOD UREA NITROGEN 95 mg/dL (7-20); CALCIUM 9.2 mg/dL (8.4-10.2); CARBON DIOXIDE 25 mmol/L (22-30); CHLORIDE 96 mmol/L (98-107); GLUCOSE 104 mg/dL (75-110); PHOSPHORUS 4.8 mg/dL (2.5-4.5); POTASSIUM 4.5 mmol/L (3.6-5.0)
[2019-12-10] MEDS: BUDESONIDE NEB 0.5 MG/2 ML AMPUL NEB SCH ×2 (07:51→20:20)
--- NOTE | 2019-12-10 09:46 | PDOC PROGRESS REPORT ---
Subjective Progress Note for:: 12/10/19 Subjective:: According to the patient's nurse patient went into a little bit of respiratory distress yesterday so her IV fluids were discontinued and she was given Lasix 40 mg IV x1 dose. She had about 1675 mL of urine output from that diuretics. Today the patient said she does not feel so good because she slept wrong and she said she has elevated neck pain. She said her breathing is unchanged. She keeps asking when she is going home. Reason For Visit: ACUTE ON CHRONIC KIDNEY FAILURE,ACUTE ON CHRONIC Physical Exam Vital Signs: Temp Pulse Resp BP Pulse Ox 98.1 F 100 18 117/49 L 98 12/10/19 07:19 12/10/19 07:19 12/10/19 07:19 12/10/19 07:19 12/10/19 07:19 Intake & Output 12/09/19 12/10/19 12/11/19 06:59 06:59 06:59 Intake Total 2391 1375 Output Total 675 1675 Balance 1716 -300 Weight 122.1 kg 122.8 kg Exam: General appearance: PRESENT: no acute distress, cooperative, well-developed, well-nourished Head exam: PRESENT: atraumatic, normocephalic Eye exam: PRESENT: conjunctiva slightly pale, PERRLA. ABSENT: scleral icterus Neck exam: ABSENT: JVD Respiratory exam: PRESENT: Normal breath sounds. ABSENT: crackles, rales, rhonchi, unlabored, wheezes Cardiovascular exam: PRESENT: Regular rate rhythm -+S1, +S2. ABSENT: diastolic murmur, systolic murmur GI/Abdominal exam: PRESENT: normal bowel sounds, soft. ABSENT: guarding, mass, tenderness Extremities exam: Increase grade 1-2 bilateral lower extremity pitting edema Neurological exam: PRESENT: alert, awake, oriented to person, place and time. Skin exam: PRESENT: dry, warm, Results Laboratory Results: 12/09/19 05:36 12/10/19 04:56 12/10/19 04:56 Sodium 132.0 L Potassium 4.5 Chloride 96 L Carbon Dioxide 25 Anion Gap 11 BUN 95 H Creatinine 3.13 H Est GFR ( Amer) 18 L Glucose 104 Calcium 9.2 Phosphorus 4.8 H Magnesium 2.7 H Albumin 3.3 L 12/08/19 12/08/19 03:00 03:00 Creatine Kinase 258 H Troponin I < 0.012 NT-Pro-B Natriuret Pep 517 H Impressions: Hip X-Ray 12/08/19 02:50 IMPRESSION: No acute abnormality noted although there is limited visualization of the left femoral neck as above. If there is high clinical concern consider CT. Chest X-Ray 12/09/19 06:00 IMPRESSION: Significant improvement the chest with minimal residual right upper lobe interstitial airspace disease. Assessment & Plan - Diagnosis (1) Acute kidney injury superimposed on chronic kidney disease Is this a current diagnosis for this admission?: Yes Plan: Due to acute prerenal azotemia. Kidney function currently improving with creatinine today of 3.13 from 4.71 upon admission. She made an adequate amount of urine output with 1 dose of IV Lasix 40 mg yesterday. Adding the patient is showing slight hypervolemia with increased leg swelling I will give her another dose of furosemide 40 mg IV x1 dose today. If her kidney function continues to improve we are probably going to have to resume her regular oral diuretics with torsemide. I will reevaluate tomorrow. No need of any acute renal replacement therapy. We will continue to monitor. (2) Acute on chronic respiratory failure Qualifiers: Respiratory failure complication: hypercapnia Qualified Code(s): J96.22 - Acute and chronic respiratory failure with hypercapnia Is this a current diagnosis for this admission?: Yes Plan: Secondary to COPD exacerbation. Clinically improved. Defer to hospitalist. (3) Hyponatremia Is this a current diagnosis for this admission?: Yes Plan: Continues to slowly improve.. (4) Chronic obstructive pulmonary disease with acute exacerbation Is this a current diagnosis for this admission?: Yes (5) Hypotension Qualifiers: Hypotension type: unspecified hypotension type Qualified Code(s): I95.9 - Hypotension, unspecified Is this a current diagnosis for this admission?: Yes Plan: Currently controlled and acceptable. Blood pressure medications and oral diuretics still on hold. (6) Anemia in chronic kidney disease Qualifiers: Chronic kidney disease stage: stage 3 (moderate) Qualified Code(s): N18.3 - Chronic kidney disease, stage 3 (moderate); D63.1 - Anemia in chronic kidney disease Is this a current diagnosis for this admission?: Yes Plan: Recheck hemoglobin. (7) Chronic kidney disease, stage 3 Is this a current diagnosis for this admission?: Yes Plan: With baseline creatinine of 1.5-2.0 and a GFR of 25-30. (8) Obesity Qualifiers: Obesity type: due to excess calories Serious obesity comorbidity presence: unspecified whether serious comorbidity present Body mass index: BMI 40.0-44.9 Is this a current diagnosis for this admission?: Yes - Time Time with patient: 15-25 minutes
[2019-12-10] MEDS ORDERED: FUROSEMIDE INJ/PF 40 MG/4 ML SDV IV ONE (10:15)
[2019-12-10] MEDS: FLUOXETINE HCL 20 MG CAPSULE PO SCH (10:51)
[2019-12-10] MEDS: ALLOPURINOL 100 MG TABLET PO SCH (10:51)
[2019-12-10] MEDS: DICYCLOMINE HCL 10 MG CAPSULE PO SCH ×3 (10:51→17:10)
[2019-12-10] MEDS: AZELASTINE NASAL SPRAY NASL SCH ×2 (10:51→17:11)
[2019-12-10] MEDS: DULOXETINE HCL 30 MG CAPSULE.DR PO SCH (10:51)
[2019-12-10] MEDS: ATORVASTATIN CALCIUM 20 MG TABLET PO SCH (10:51)
[2019-12-10] MEDS: FONDAPARINUX SODIUM INJ 7.5 MG/0.6 ML DISP.SYRIN SUBCUT SCH (10:51)
[2019-12-10] MEDS: ROPINIROLE HCL 0.25 MG TABLET PO SCH (10:51)
[2019-12-10] MEDS: PRENATAL VITAMIN W DHA CAPSULE PO SCH (10:51)
[2019-12-10] MEDS: FLUTICASONE NASAL SPRAY 50 MCG/SPRY 120 SPRAY/16 GM NASL SCH (10:52)
--- NOTE | 2019-12-10 17:07 | PDOC PROGRESS REPORT ---
Subjective Progress Note for:: 12/10/19 Subjective:: No adverse events overnight. No new complaints. Vital signs have been stable. She still retaining some fluid. Appetite is been fair. Breathing has been comfortable on room air. Reason For Visit: ACUTE ON CHRONIC KIDNEY FAILURE,ACUTE ON CHRONIC Physical Exam Vital Signs: Temp Pulse Resp BP Pulse Ox 98.0 F 103 H 15 111/37 L 93 12/10/19 11:07 12/10/19 14:00 12/10/19 13:55 12/10/19 11:07 12/10/19 13:55 Intake & Output 12/09/19 12/10/19 12/11/19 06:59 06:59 06:59 Intake Total 2391 1375 525 Output Total 675 1675 275 Balance 1716 -300 250 Weight 122.1 kg 122.8 kg General appearance: PRESENT: no acute distress, cooperative, disheveled, morbidly obese Respiratory exam: PRESENT: decreased breath sounds, symmetrical, unlabored. ABSENT: accessory muscle use, chest wall tenderness, crackles, prolonged expiratory phas, rales, rhonchi, tachypnea, wheezes Cardiovascular exam: PRESENT: RRR, +S1, +S2 Pulses: PRESENT: normal carotid pulses Vascular exam: PRESENT: normal capillary refill GI/Abdominal exam: PRESENT: normal bowel sounds, soft, other - Pendulous abdominal pannus. ABSENT: distended, guarding, rebound, tenderness Extremities exam: PRESENT: pedal edema, +2 edema Musculoskeletal exam: ABSENT: ambulatory - Refused to work with physical therapy Neurological exam: PRESENT: awake, oriented to person, oriented to place, oriented to situation Psychiatric exam: PRESENT: appropriate affect, normal mood Skin exam: PRESENT: dry, warm Results Laboratory Results: 12/09/19 05:36 12/10/19 04:56 12/10/19 04:56 Sodium 132.0 L Potassium 4.5 Chloride 96 L Carbon Dioxide 25 Anion Gap 11 BUN 95 H Creatinine 3.13 H Est GFR ( Amer) 18 L Glucose 104 Calcium 9.2 Phosphorus 4.8 H Magnesium 2.7 H Albumin 3.3 L 12/08/19 05:55 Catheterized Urine Urine Culture - Final 3,000 col/ml 12/08/19 12/08/19 03:00 03:00 Creatine Kinase 258 H Troponin I < 0.012 NT-Pro-B Natriuret Pep 517 H Impressions: Hip X-Ray 12/08/19 02:50 IMPRESSION: No acute abnormality noted although there is limited visualization of the left femoral neck as above. If there is high clinical concern consider CT. Chest X-Ray 12/09/19 06:00 IMPRESSION: Significant improvement the chest with minimal residual right upper lobe interstitial airspace disease. Assessment and Plan - Diagnosis (1) Acute on chronic respiratory failure Qualifiers: Respiratory failure complication: hypercapnia Qualified Code(s): J96.22 - Acute and chronic respiratory failure with hypercapnia Is this a current diagnosis for this admission?: Yes Plan: Resolved. She was on room air whenever I saw her. (2) COPD exacerbation Is this a current diagnosis for this admission?: Yes Plan: Resolved. Continue bronchodilators and maintenance medications. (3) Hyponatremia Is this a current diagnosis for this admission?: Yes Plan: Slowly improving, should continue to improve with fluid restriction and diuresis (4) Morbid obesity with BMI of 45.0-49.9, adult Is this a current diagnosis for this admission?: Yes Plan: Strongly encourage lifestyle modification, as has been done on multiple prior admissions (5) Physical deconditioning Is this a current diagnosis for this admission?: Yes Plan: Patient continues to refuse to work with physical therapy, as she has done essentially every time she is ever been in the hospital. (6) Acute kidney injury superimposed on chronic kidney disease Is this a current diagnosis for this admission?: Yes Plan: Nephrology consulted. Creatinine trending down. Probably prerenal. She actually looks a little volume overloaded. Nephrology is giving her gentle diuresis. - Plan Summary Summary: 12/08/2019 The patient presented in respiratory failure with hypoxia and hypercapnia. She was treated with BiPAP and improved. We will continue her nebulizer regimen and attempt to wean off of BiPAP and then work on tapering her oxygen. She exhibits significant acute kidney injury on her chronic kidney disease. Dr. Patel will be seeing the patient. We will institute gentle IV fluids and hold her diuretics as well as ALFRED inhibitors. We will need to dose medications according to her renal function and try and avoid nephrotoxic medications. She has chronic anemia of kidney disease. This will be monitored. We will continue her levothyroxine for her hypothyroidism. Other electrolyte abnormalities include hyponatremia and hypomagnesemia. Will monitor these. These are related to her chronic renal failure. We will ask physical therapy to see the patient for her severe deconditioning as well. Much of the deconditioning is related to her morbid obesity with a BMI of 46.2. During her last hospitalization she was very resistant to getting out of the bed and we must make a concerted effort to encourage activity. 12/09/2019 The patient is on nasal cannula. The acute on chronic respiratory failure is improving. We will try to maintain oxygen saturation of 88 to 92% taking into account her underlying COPD. We will continue the nebulizer treatments. She does not require antibiotics for a respiratory infection. By holding her diuretics and ALFRED inhibitors her serum creatinine is improving. We will continue IV fluids. We will need to be careful with her reduced renal f unction as it relates to fluid retention while rehydrating. We will continue to monitor electrolytes. Serum sodium is still low. There are other electrolyte abnormalities. Even without her Demadex, Zaroxolyn ALFRED inhibitor her blood pressure has been low. We will hold off resuming these medications until the kidneys improve and her blood pressure can tolerate resuming the medication. - Time Time Spent with patient: 15-24 minutes
[2019-12-10] MEDS: CYCLOBENZAPRINE HCL 10 MG TABLET PO PRN ×2 (17:10→23:27)
[2019-12-10] MEDS: ZOLPIDEM TARTRATE 5 MG TABLET PO SCH (21:48)
[2019-12-10] MEDS: CALCITRIOL 0.25 MCG CAPSULE PO SCH (21:53)
[2019-12-10] MEDS: CETIRIZINE 5 MG TABLET PO SCH (21:53)
[2019-12-10] MEDS: DONEPEZIL HCL 5 MG TABLET PO SCH (21:53)
[2019-12-11] MEDS: IPRATROPIUM/ALBUTEROL 0.5-2.5 MG/3 ML AMPUL NEB SCH ×4 (02:19→20:20)
[2019-12-11] MEDS: OXYCODONE HCL IR 5 MG TABLET PO PRN ×3 (05:47→17:56)
[2019-12-11] MEDS: LEVOTHYROXINE SODIUM 0.1 MG TABLET PO SCH (05:50)
[2019-12-11] MEDS: PRIMIDONE 50 MG TABLET PO SCH ×3 (05:51→21:09)
[2019-12-11] MEDS: ALPRAZOLAM 0.5 MG TABLET PO SCH ×3 (05:51→17:55)
[2019-12-11] MEDS: PANTOPRAZOLE SODIUM 20 MG TABLET.DR PO SCH (05:51)
[2019-12-11] MEDS: LEVOTHYROXINE SODIUM 0.025 MG TABLET PO SCH (05:51)
[2019-12-11 06:17] LABS: ABSOLUTE EOSINOPHILS # (AUTO) 0.5 10^3/uL (0.0-0.6); ABSOLUTE LYMPHOCYTES (AUTO) 1.3 10^3/uL (0.5-4.7); ABSOLUTE MONOCYTES (AUTO) 0.8 10^3/uL (0.1-1.4); ABSOLUTE NEUT (AUTO) 4.3 10^3/uL (1.7-8.2); BASOPHILS % (AUTO) 0.3 % (0-2); EOSINOPHILS % (AUTO) 6.7 % (0-6); HEMOGLOBIN 9.1 g/dL (12.0-15.5); LYMPHOCYTES % (AUTO) 18.7 % (13-45); MEAN CORPUSCULAR HGB CONC 35.2 g/dL (32.0-36.0); MEAN CORPUSCULAR VOLUME 91 fl (80-97); MONOCYTES % (AUTO) 11.7 % (3-13); PLATELET COUNT 201 10^3/uL (150-450); RED BLOOD COUNT 2.86 10^6/uL (3.72-5.28); RED CELL DISTRIBUTION WIDTH 14.2 % (11.5-14.0); SEGMENTED NEUTROPHILS % (AUTO) 62.6 % (42-78); TOTAL CELLS COUNTED % (AUTO) 100 %; WHITE BLOOD COUNT 6.8 10^3/uL (4.0-10.5)
[2019-12-11 06:25] LABS: ALBUMIN 3.2 g/dL (3.5-5.0); ANION GAP 9 (5-19); BLOOD UREA NITROGEN 84 mg/dL (7-20); CARBON DIOXIDE 27 mmol/L (22-30); CHLORIDE 97 mmol/L (98-107); GLUCOSE 110 mg/dL (75-110); PHOSPHORUS 4.7 mg/dL (2.5-4.5); POTASSIUM 4.3 mmol/L (3.6-5.0)
[2019-12-11] MEDS: BUDESONIDE NEB 0.5 MG/2 ML AMPUL NEB SCH ×2 (07:56→20:50)
[2019-12-11] MEDS: CYCLOBENZAPRINE HCL 10 MG TABLET PO PRN ×2 (09:51→21:20)
[2019-12-11] MEDS: PRENATAL VITAMIN W DHA CAPSULE PO SCH (09:51)
[2019-12-11] MEDS: FLUOXETINE HCL 20 MG CAPSULE PO SCH (09:51)
[2019-12-11] MEDS: ROPINIROLE HCL 0.25 MG TABLET PO SCH (09:51)
[2019-12-11] MEDS: DICYCLOMINE HCL 10 MG CAPSULE PO SCH ×3 (09:52→17:55)
[2019-12-11] MEDS: ATORVASTATIN CALCIUM 20 MG TABLET PO SCH (09:52)
[2019-12-11] MEDS: DULOXETINE HCL 30 MG CAPSULE.DR PO SCH (09:52)
[2019-12-11] MEDS: FONDAPARINUX SODIUM INJ 7.5 MG/0.6 ML DISP.SYRIN SUBCUT SCH (09:52)
[2019-12-11] MEDS: ALLOPURINOL 100 MG TABLET PO SCH (09:52)
[2019-12-11] MEDS: FLUTICASONE NASAL SPRAY 50 MCG/SPRY 120 SPRAY/16 GM NASL SCH (09:53)
[2019-12-11] MEDS: AZELASTINE NASAL SPRAY NASL SCH ×2 (09:53→17:56)
--- NOTE | 2019-12-11 11:12 | PDOC PROGRESS REPORT ---
Subjective Progress Note for:: 12/11/19 Subjective:: Patient is doing much better. She also admits that she is feeling better. She made a good amount of urine output of 1900 mL with IV furosemide to 40 mg x 1 dose yesterday. Her blood pressure is slightly lowish but acceptable. She has no other complaints. She wanted to go home. Reason For Visit: ACUTE ON CHRONIC KIDNEY FAILURE,ACUTE ON CHRONIC Physical Exam Vital Signs: Temp Pulse Resp BP Pulse Ox 98.1 F 98 12 104/60 99 12/11/19 09:01 12/11/19 09:01 12/11/19 09:01 12/11/19 09:01 12/11/19 09:01 Intake & Output 12/10/19 12/11/19 12/12/19 06:59 06:59 06:59 Intake Total 1375 1125 Output Total 1675 1900 Balance -300 -775 Weight 122.8 kg 122 kg Exam: General appearance: PRESENT: no acute distress, cooperative, well-developed, well-nourished Head exam: PRESENT: atraumatic, normocephalic Eye exam: PRESENT: conjunctiva slightly pale, PERRLA. ABSENT: scleral icterus Neck exam: ABSENT: JVD Respiratory exam: PRESENT: Diminished breath sounds. ABSENT: crackles, rales, rhonchi, unlabored, wheezes Cardiovascular exam: PRESENT: Regular rate rhythm -+S1, +S2. ABSENT: diastolic murmur, systolic murmur GI/Abdominal exam: PRESENT: normal bowel sounds, soft. ABSENT: guarding, mass, tenderness Extremities exam: Good 1-2 bilateral lower extremity pitting edema Neurological exam: PRESENT: alert, awake, oriented to person, place and time. Skin exam: PRESENT: dry, warm, Results Laboratory Results: 12/11/19 05:43 12/11/19 05:43 12/11/19 12/11/19 05:43 05:43 WBC 6.8 RBC 2.86 L Hgb 9.1 L Hct 26.0 L MCV 91 MCH 32.0 MCHC 35.2 RDW 14.2 H Plt Count 201 Seg Neutrophils % 62.6 Sodium 133.1 L Potassium 4.3 Chloride 97 L Carbon Dioxide 27 Anion Gap 9 BUN 84 H Creatinine 2.36 H Est GFR ( Amer) 25 L Glucose 110 Calcium 9.0 Phosphorus 4.7 H Magnesium 2.6 H Albumin 3.2 L 12/08/19 05:55 Catheterized Urine Urine Culture - Final 3,000 col/ml 12/08/19 12/08/19 03:00 03:00 Creatine Kinase 258 H Troponin I < 0.012 NT-Pro-B Natriuret Pep 517 H Impressions: Hip X-Ray 12/08/19 02:50 IMPRESSION: No acute abnormality noted although there is limited visualization of the left femoral neck as above. If there is high clinical concern consider CT. Chest X-Ray 12/09/19 06:00 IMPRESSION: Significant improvement the chest with minimal residual right upper lobe interstitial airspace disease. Assessment & Plan - Diagnosis (1) Acute kidney injury superimposed on chronic kidney disease Is this a current diagnosis for this admission?: Yes Plan: Due to initial acute prerenal azotemia. Kidney function currently improving with creatinine today of 2.36 from 4.71 upon admission. She made an adequate amount of urine output with 1 dose of IV Lasix 40 mg yesterday. I will resume her torsemide 40 mg daily today. Continue to hold the ramipril though. If her kidney function continues to improve I think she can be safely discharged home in the next 24 to 48 hours. Advised patient to follow-up with HILDA Pandya. (2) Acute on chronic respiratory failure Qualifiers: Respiratory failure complication: hypercapnia Qualified Code(s): J96.22 - Acute and chronic respiratory failure with hypercapnia Is this a current diagnosis for this admission?: Yes Plan: Secondary to COPD exacerbation. Clinically improved. Defer to hospitalist. (3) Hyponatremia Is this a current diagnosis for this admission?: Yes Plan: Continues to slowly improve.. (4) Chronic obstructive pulmonary disease with acute exacerbation Is this a current diagnosis for this admission?: Yes (5) Hypotension Qualifiers: Hypotension type: unspecified hypotension type Qualified Code(s): I95.9 - Hypotension, unspecified Is this a current diagnosis for this admission?: Yes Plan: Currently controlled and acceptable. Continue to hold ramipril. (6) Anemia in chronic kidney disease Qualifiers: Chronic kidney disease stage: stage 3 (moderate) Qualified Code(s): N18.3 - Chronic kidney disease, stage 3 (moderate); D63.1 - Anemia in chronic kidney disease Is this a current diagnosis for this admission?: Yes Plan: We will reevaluate as an outpatient at a steady state. (7) Chronic kidney disease, stage 3 Is this a current diagnosis for this admission?: Yes Plan: With baseline creatinine of 1.5-2.0 and a GFR of 25-30. (8) Obesity Qualifiers: Obesity type: due to excess calories Serious obesity comorbidity presence: unspecified whether serious comorbidity present Body mass index: BMI 40.0-44.9 Is this a current diagnosis for this admission?: Yes - Time Time with patient: 15-25 minutes
[2019-12-11] MEDS: TORSEMIDE 20 MG TABLET PO SCH (12:44)
--- NOTE | 2019-12-11 13:45 | PDOC PROGRESS REPORT ---
Subjective Progress Note for:: 12/11/19 Subjective:: No adverse events overnight. No new complaints. She still has oxygen on and her saturations are nearly 100%. She says that she has oxygen at home for use if needed. She has had good urine output. She wants to know if she will be ready to go home soon. She said her breathing feels fairly comfortable. Reason For Visit: ACUTE ON CHRONIC KIDNEY FAILURE,ACUTE ON CHRONIC Physical Exam Vital Signs: Temp Pulse Resp BP Pulse Ox 98.1 F 98 12 104/60 99 12/11/19 09:01 12/11/19 09:01 12/11/19 09:01 12/11/19 09:01 12/11/19 09:01 Intake & Output 12/10/19 12/11/19 12/12/19 06:59 06:59 06:59 Intake Total 1375 1125 Output Total 1675 1900 Balance -300 -775 Weight 122.8 kg 122 kg General appearance: PRESENT: no acute distress, cooperative, disheveled, morbidly obese Respiratory exam: PRESENT: decreased breath sounds, symmetrical, unlabored. ABSENT: accessory muscle use, chest wall tenderness, crackles, prolonged expiratory phas, rales, rhonchi, tachypnea, wheezes Cardiovascular exam: PRESENT: RRR, +S1, +S2 Pulses: PRESENT: normal carotid pulses Vascular exam: PRESENT: normal capillary refill GI/Abdominal exam: PRESENT: normal bowel sounds, soft, other - Pendulous abdominal pannus. ABSENT: distended, guarding, rebound, tenderness Extremities exam: PRESENT: pedal edema, +2 edema Musculoskeletal exam: ABSENT: ambulatory - Refused to work with physical therapy Neurological exam: PRESENT: awake, oriented to person, oriented to place, oriented to situation Psychiatric exam: PRESENT: appropriate affect, normal mood Skin exam: PRESENT: dry, warm Results Laboratory Results: 12/11/19 05:43 12/11/19 05:43 12/11/19 12/11/19 05:43 05:43 WBC 6.8 RBC 2.86 L Hgb 9.1 L Hct 26.0 L MCV 91 MCH 32.0 MCHC 35.2 RDW 14.2 H Plt Count 201 Seg Neutrophils % 62.6 Sodium 133.1 L Potassium 4.3 Chloride 97 L Carbon Dioxide 27 Anion Gap 9 BUN 84 H Creatinine 2.36 H Est GFR ( Amer) 25 L Glucose 110 Calcium 9.0 Phosphorus 4.7 H Magnesium 2.6 H Albumin 3.2 L 12/08/19 05:55 Catheterized Urine Urine Culture - Final 3,000 col/ml 12/08/19 12/08/19 03:00 03:00 Creatine Kinase 258 H Troponin I < 0.012 NT-Pro-B Natriuret Pep 517 H Impressions: Hip X-Ray 12/08/19 02:50 IMPRESSION: No acute abnormality noted although there is limited visualization of the left femoral neck as above. If there is high clinical concern consider CT. Chest X-Ray 12/09/19 06:00 IMPRESSION: Significant improvement the chest with minimal residual right upper lobe interstitial airspace disease. Assessment and Plan - Diagnosis (1) Acute on chronic respiratory failure Qualifiers: Respiratory failure complication: hypercapnia Qualified Code(s): J96.22 - Acute and chronic respiratory failure with hypercapnia Is this a current diagnosis for this admission?: Yes Plan: I am not sure how much oxygen she is on at home when she uses it, but here she is on 3 to 3-1/2 L per nasal cannula and her saturations are nearly 100%. (2) COPD exacerbation Is this a current diagnosis for this admission?: Yes Plan: Resolved. Continue bronchodilators and maintenance medications. (3) Hyponatremia Is this a current diagnosis for this admission?: Yes Plan: Slowly improving, should continue to improve with fluid restriction and diuresis (4) Morbid obesity with BMI of 45.0-49.9, adult Is this a current diagnosis for this admission?: Yes Plan: Strongly encourage lifestyle modification, as has been done on multiple prior admissions (5) Physical deconditioning Is this a current diagnosis for this admission?: Yes Plan: Patient continues to refuse to work with physical therapy, as she has done essentially every time she is ever been in the hospital. (6) Acute kidney injury superimposed on chronic kidney disease Is this a current diagnosis for this admission?: Yes Plan: Fluids have been discontinued. She is actually been started also on diuretics and her creatinine is getting better. Nephrology has been consulted. - Plan Summary Summary: 12/08/2019 The patient presented in respiratory failure with hypoxia and hypercapnia. She was treated with BiPAP and improved. We will continue her nebulizer regimen and attempt to wean off of BiPAP and then work on tapering her oxygen. She exhibits significant acute kidney injury on her chronic kidney disease. Dr. Patel will be seeing the patient. We will institute gentle IV fluids and hold her diuretics as well as ALFRED inhibitors. We will need to dose medications according to her renal function and try and avoid nephrotoxic medications. She has chronic anemia of kidney disease. This will be monitored. We will continue her levothyroxine for her hypothyroidism. Other electrolyte abnormalities include hyponatremia and hypomagnesemia. Will monitor these. These are related to her chronic renal failure. We will ask physical therapy to see the patient for her severe deconditioning as well. Much of the deconditioning is related to her morbid obesity with a BMI of 46.2. During her last hospitalization she was very resistant to getting out of the bed and we must make a concerted effort to encourage activity. 12/09/2019 The patient is on nasal cannula. The acute on chronic respiratory failure is improving. We will try to maintain oxygen saturation of 88 to 92% taking into account her underlying COPD. We will continue the nebulizer treatments. She does not require antibiotics for a respiratory infection. By holding her diuretics and ALFRED inhibitors her serum creatinine is improving. We will continue IV fluids. We will need to be careful with her reduced renal function as it relates to fluid retention while rehydrating. We will continue to monitor electrolytes. Serum sodium is still low. There are other electrolyte abnormalities. Even without her Demadex, Zaroxolyn ALFRED inhibitor her blood pressure has been low. We will hold off resuming these medications until the kidneys improve and her blood pressure can tolerate resuming the medication. - Time Time Spent with patient: 15-24 minutes
[2019-12-11] MEDS: CETIRIZINE 5 MG TABLET PO SCH (21:08)
[2019-12-11] MEDS: ZOLPIDEM TARTRATE 5 MG TABLET PO SCH (21:09)
[2019-12-11] MEDS: DONEPEZIL HCL 5 MG TABLET PO SCH (21:09)
[2019-12-11] MEDS: CALCITRIOL 0.25 MCG CAPSULE PO SCH (21:09)
[2019-12-12] MEDS: ALPRAZOLAM 0.5 MG TABLET PO SCH ×4 (00:40→17:04)
[2019-12-12] MEDS: IPRATROPIUM/ALBUTEROL 0.5-2.5 MG/3 ML AMPUL NEB SCH ×4 (01:56→20:05)
[2019-12-12] MEDS: PRIMIDONE 50 MG TABLET PO SCH ×3 (06:26→21:53)
[2019-12-12] MEDS: LEVOTHYROXINE SODIUM 0.025 MG TABLET PO SCH (06:26)
[2019-12-12] MEDS: LEVOTHYROXINE SODIUM 0.1 MG TABLET PO SCH (06:26)
[2019-12-12] MEDS: PANTOPRAZOLE SODIUM 20 MG TABLET.DR PO SCH (06:27)
[2019-12-12] MEDS: OXYCODONE HCL IR 5 MG TABLET PO PRN ×3 (09:15→23:26)
[2019-12-12] MEDS: CYCLOBENZAPRINE HCL 10 MG TABLET PO PRN ×2 (09:15→21:53)
[2019-12-12] MEDS: FONDAPARINUX SODIUM INJ 7.5 MG/0.6 ML DISP.SYRIN SUBCUT SCH (09:15)
[2019-12-12] MEDS: DICYCLOMINE HCL 10 MG CAPSULE PO SCH ×3 (09:15→17:04)
[2019-12-12] MEDS: ALLOPURINOL 100 MG TABLET PO SCH (09:16)
[2019-12-12] MEDS: FLUOXETINE HCL 20 MG CAPSULE PO SCH (09:16)
[2019-12-12] MEDS: ATORVASTATIN CALCIUM 20 MG TABLET PO SCH (09:16)
[2019-12-12] MEDS: TORSEMIDE 20 MG TABLET PO SCH (09:16)
[2019-12-12] MEDS: DULOXETINE HCL 30 MG CAPSULE.DR PO SCH (09:17)
[2019-12-12] MEDS: ROPINIROLE HCL 0.25 MG TABLET PO SCH (09:17)
[2019-12-12] MEDS: AZELASTINE NASAL SPRAY NASL SCH ×2 (09:17→17:05)
[2019-12-12] MEDS: PRENATAL VITAMIN W DHA CAPSULE PO SCH (09:17)
[2019-12-12] MEDS: FLUTICASONE NASAL SPRAY 50 MCG/SPRY 120 SPRAY/16 GM NASL SCH (09:18)
[2019-12-12] MEDS: BUDESONIDE NEB 0.5 MG/2 ML AMPUL NEB SCH (09:20)
[2019-12-12 10:44] LABS: ANION GAP 10 (5-19); BLOOD UREA NITROGEN 71 mg/dL (7-20); CALCIUM 9.3 mg/dL (8.4-10.2); CARBON DIOXIDE 28 mmol/L (22-30); CHLORIDE 97 mmol/L (98-107); GLUCOSE 123 mg/dL (75-110); POTASSIUM 4.1 mmol/L (3.6-5.0)
--- NOTE | 2019-12-12 14:39 | PDOC PROGRESS REPORT ---
Subjective Progress Note for:: 12/12/19 Subjective:: No adverse events overnight. No new complaints. Vital signs been stable. Urine output is been good. Apparently she just had some sort of negative interaction with her family on the phone and she was visibly upset about it. She says she wants to go home. Reason For Visit: ACUTE ON CHRONIC KIDNEY FAILURE,ACUTE ON CHRONIC Physical Exam Vital Signs: Temp Pulse Resp BP Pulse Ox 97.9 F 86 14 133/54 H 100 12/12/19 11:27 12/12/19 14:00 12/12/19 11:27 12/12/19 11:27 12/12/19 11:27 Intake & Output 12/11/19 12/12/19 12/13/19 06:59 06:59 06:59 Intake Total 1125 3808 Output Total 1900 3750 Balance -775 58 Weight 122 kg 121.5 kg General appearance: PRESENT: no acute distress, cooperative, disheveled, mo rbidly obese Respiratory exam: PRESENT: decreased breath sounds, symmetrical, unlabored. ABSENT: accessory muscle use, chest wall tenderness, crackles, prolonged expiratory phas, rales, rhonchi, tachypnea, wheezes Cardiovascular exam: PRESENT: RRR, +S1, +S2 Pulses: PRESENT: normal carotid pulses Vascular exam: PRESENT: normal capillary refill GI/Abdominal exam: PRESENT: normal bowel sounds, soft, other - Pendulous abdominal pannus. ABSENT: distended, guarding, rebound, tenderness Extremities exam: PRESENT: pedal edema, +2 edema Musculoskeletal exam: ABSENT: ambulatory - Refused to work with physical therapy Neurological exam: PRESENT: awake, oriented to person, oriented to place, oriented to situation Psychiatric exam: PRESENT: appropriate affect, normal mood Skin exam: PRESENT: dry, warm Results Laboratory Results: 12/11/19 05:43 12/12/19 10:00 12/12/19 10:00 Sodium 134.9 L Potassium 4.1 Chloride 97 L Carbon Dioxide 28 Anion Gap 10 BUN 71 H Creatinine 1.86 H Est GFR ( Amer) 33 L Glucose 123 H Calcium 9.3 12/08/19 12/08/19 03:00 03:00 Creatine Kinase 258 H Troponin I < 0.012 NT-Pro-B Natriuret Pep 517 H Impressions: Hip X-Ray 12/08/19 02:50 IMPRESSION: No acute abnormality noted although there is limited visualization of the left femoral neck as above. If there is high clinical concern consider CT. Chest X-Ray 12/09/19 06:00 IMPRESSION: Significant improvement the chest with minimal residual right upper lobe interstitial airspace disease. Assessment and Plan - Diagnosis (1) Acute on chronic respiratory failure Qualifiers: Respiratory failure complication: hypercapnia Qualified Code(s): J96.22 - Acute and chronic respiratory failure with hypercapnia Is this a current diagnosis for this admission?: Yes Plan: I am not sure how much oxygen she is on at home when she uses it, but here she is on 3 to 3-1/2 L per nasal cannula and her saturations are nearly 100%. (2) COPD exacerbation Is this a current diagnosis for this admission?: Yes Plan: Resolved. Continue bronchodilators and maintenance medications. (3) Hyponatremia Is this a current diagnosis for this admission?: Yes Plan: Slowly improving, should continue to improve with fluid restriction and diuresis (4) Morbid obesity with BMI of 45.0-49.9, adult Is this a current diagnosis for this admission?: Yes Plan: Strongly encourage lifestyle modification, as has been done on multiple prior a dmissions (5) Physical deconditioning Is this a current diagnosis for this admission?: Yes Plan: Patient continues to refuse to work with physical therapy, as she has done essentially every time she is ever been in the hospital. She says she is current with home health and will resume it. (6) Acute kidney injury superimposed on chronic kidney disease Is this a current diagnosis for this admission?: Yes Plan: Fluids have been discontinued. She is actually been started also on diuretics and her creatinine is getting better, not too far from her baseline. Nephrology has been consulted. Anticipate she should be at her baseline by tomorrow and at that time she can be discharged home. - Plan Summary Summary: 12/08/2019 The patient presented in respiratory failure with hypoxia and hypercapnia. She was treated with BiPAP and improved. We will continue her nebulizer regimen and attempt to wean off of BiPAP and then work on tapering her oxygen. She exhibits significant acute kidney injury on her chronic kidney disease. Dr. Patel will be seeing the patient. We will institute gentle IV fluids and hold her diuretics as well as ALFRED inhibitors. We will need to dose medications according to her renal function and try and avoid nephrotoxic medications. She has chronic anemia of kidney disease. This will be monitored. We will continue her levothyroxine for her hypothyroidism. Other electrolyte abnormalities include hyponatremia and hypomagnesemia. Will monitor these. These are related to her chronic renal failure. We will ask physical therapy to see the patient for her severe deconditioning as well. Much of the deconditioning is related to her morbid obesity with a BMI of 46.2. During her last hospitalization she was very resistant to getting out of the bed and we must make a concerted effort to encourage activity. 12/09/2019 The patient is on nasal cannula. The acute on chronic respiratory failure is improving. We will try to maintain oxygen saturation of 88 to 92% taking into account her underlying COPD. We will continue the nebulizer treatments. She does not require antibiotics for a respiratory infection. By holding her diuretics and ALFRED inhibitors her serum creatinine is improving. We will continue IV fluids. We will need to be careful with her reduced renal function as it relates to fluid retention while rehydrating. We will continue to monitor electrolytes. Serum sodium is still low. There are other electrolyte abnormalities. Even without her Demadex, Zaroxolyn ALFRED inhibitor her blood pressure has been low. We will hold off resuming these medications until the kidneys improve and her blood pressure can tolerate resuming the medication. - Time Time Spent with patient: 15-24 minutes
[2019-12-12] MEDS: DONEPEZIL HCL 5 MG TABLET PO SCH (21:53)
[2019-12-12] MEDS: CALCITRIOL 0.25 MCG CAPSULE PO SCH (21:53)
[2019-12-12] MEDS: CETIRIZINE 5 MG TABLET PO SCH (21:53)
[2019-12-12] MEDS: ZOLPIDEM TARTRATE 5 MG TABLET PO SCH (23:24)
[2019-12-13] MEDS: ALPRAZOLAM 0.5 MG TABLET PO SCH ×2 (00:15→07:08)
[2019-12-13] MEDS: IPRATROPIUM/ALBUTEROL 0.5-2.5 MG/3 ML AMPUL NEB SCH ×2 (02:07→08:20)
[2019-12-13 06:21] LABS: ANION GAP 8 (5-19); BLOOD UREA NITROGEN 68 mg/dL (7-20); CARBON DIOXIDE 30 mmol/L (22-30); CHLORIDE 98 mmol/L (98-107); GLUCOSE 98 mg/dL (75-110); POTASSIUM 4.1 mmol/L (3.6-5.0)
[2019-12-13] MEDS: LEVOTHYROXINE SODIUM 0.1 MG TABLET PO SCH (07:07)
[2019-12-13] MEDS: PANTOPRAZOLE SODIUM 20 MG TABLET.DR PO SCH (07:08)
[2019-12-13] MEDS: PRIMIDONE 50 MG TABLET PO SCH (07:08)
[2019-12-13] MEDS: LEVOTHYROXINE SODIUM 0.025 MG TABLET PO SCH (07:08)
[2019-12-13 08:14] VITALS: BP 117/57
[2019-12-13] MEDS: DICYCLOMINE HCL 10 MG CAPSULE PO SCH (11:28)
[2019-12-13] MEDS: TORSEMIDE 20 MG TABLET PO SCH (11:28)
[2019-12-13] MEDS: ROPINIROLE HCL 0.25 MG TABLET PO SCH (11:29)
[2019-12-13] MEDS: DULOXETINE HCL 30 MG CAPSULE.DR PO SCH (11:29)
[2019-12-13] MEDS: FLUOXETINE HCL 20 MG CAPSULE PO SCH (11:29)
[2019-12-13] MEDS: FONDAPARINUX SODIUM INJ 7.5 MG/0.6 ML DISP.SYRIN SUBCUT SCH (11:29)
[2019-12-13] MEDS: PRENATAL VITAMIN W DHA CAPSULE PO SCH (11:29)
[2019-12-13] MEDS: ATORVASTATIN CALCIUM 20 MG TABLET PO SCH (11:29)
[2019-12-13] MEDS: CYCLOBENZAPRINE HCL 10 MG TABLET PO PRN (11:29)
[2019-12-13] MEDS: OXYCODONE HCL IR 5 MG TABLET PO PRN (11:30)
[2019-12-13] MEDS: ALLOPURINOL 100 MG TABLET PO SCH (11:30)
[2019-12-13] MEDS: FLUTICASONE NASAL SPRAY 50 MCG/SPRY 120 SPRAY/16 GM NASL SCH (11:31)
[2019-12-13] MEDS: AZELASTINE NASAL SPRAY NASL SCH (11:31)
--- NOTE | 2019-12-13 11:49 | PDOC DISCHARGE SUMMARY ---
Impression - Admit/DC Date/PCP Admission Date/Primary Care Provider: 12/08/19 07:49 MARK HAILE MD Discharge Date: 12/13/19 - Discharge Diagnosis (1) Acute on chronic respiratory failure Is this a current diagnosis for this admission?: Yes (2) COPD exacerbation Is this a current diagnosis for this admission?: Yes (3) Hyponatremia Is this a current diagnosis for this admission?: Yes (4) Morbid obesity with BMI of 45.0-49.9, adult Is this a current diagnosis for this admission?: Yes (5) Physical deconditioning Is this a current diagnosis for this admission?: Yes (6) Acute kidney injury superimposed on chronic kidney disease Is this a current diagnosis for this admission?: Yes - Assessment Summary: 12/08/2019 The patient presented in respiratory failure with hypoxia and hypercapnia. She was treated with BiPAP and improved. We will continue her nebulizer regimen and attempt to wean off of BiPAP and then work on tapering her oxygen. She exhibits significant acute kidney injury on her chronic kidney disease. Dr. Patel will be seeing the patient. We will institute gentle IV fluids and hold her diuretics as well as ALFRED inhibitors. We will need to dose medications according to her renal function and try and avoid nephrotoxic medications. She has chronic anemia of kidney disease. This will be monitored. We will continue her levothyroxine for her hypothyroidism. Other electrolyte abnormalities include hyponatremia and hypomagnesemia. Will monitor these. These are related to her chronic renal failure. We will ask physical therapy to see the patient for her severe deconditioning as well. Much of the deconditioning is related to her morbid obesity with a BMI of 46.2. During her last hospitalization she was very resistant to getting out of the bed and we must make a concerted effort to encourage activity. 12/09/2019 The patient is on nasal cannula. The acute on chronic respiratory failure is improving. We will try to maintain oxygen saturation of 88 to 92% taking into account her underlying COPD. We will continue the nebulizer treatments. She does not require antibiotics for a respiratory infection. By holding her diuretics and ALFRED inhibitors her serum creatinine is improving. We will continue IV fluids. We will need to be careful with her reduced renal function as it relates to fluid retention while rehydrating. We will continue to monitor electrolytes. Serum sodium is still low. There are other electrolyte abnormalities. Even without her Demadex, Zaroxolyn ALFRED inhibitor her blood pressure has been low. We will hold off resuming these medications until the kidneys improve and her blood pressure can tolerate resuming the medication. - Additional Information Resuscitation Status: Full Code Discharge Diet: Cardiac Discharge Activity: Activity As Tolerated, Supervised Activity Referrals: MARK HAILE MD [Primary Care Provider] - 12/21/19 2:15 pm Home Medications: Albuterol Sulfate [Ventolin 0.083% Neb 2.5 mg/3 mL Ampul] 1 vial NEB RTQ4HP PRN 04/09/19 Alprazolam [Xanax 0.5 mg Tablet] 0.5 mg PO QID 04/09/19 Atorvastatin Calcium [Lipitor 20 mg Tablet] 20 mg PO DAILY 04/09/19 Donepezil HCl [Aricept] 10 mg PO QHS 04/09/19 Duloxetine HCl [Cymbalta 30 mg Capsule.dr] 60 mg PO DAILY 04/09/19 Ergocalciferol (Vitamin D2) [Drisdol 50,000 unit (1.25MG) Capsule] 50,000 unit PO MO@1000 04/09/19 Eszopiclone [Lunesta] 3 mg PO QHS 04/09/19 Fluoxetine HCl [Prozac 20 mg Capsule] 80 mg PO DAILY 04/09/19 Fluticasone Propionate [Flonase Nasal Gilbert 50 Mcg/Gilbert 16 gm] 1 spray NASL DAILY 04/09/19 Fluticasone/Umeclidin/Vilanter [Trelegy 100-62.5-25 Mcg Ellipta 14 Dose/Dpi] 1 puff IH DAILY 04/09/19 Fondaparinux Sodium [Arixtra Inj 7.5 mg/0.6 ml Disp. Syrin] 7.5 mg SUBCUT DAILY 04/09/19 Levocetirizine Dihydrochloride [Xyzal] 5 mg PO QHS 04/09/19 Levothyroxine Sodium [Synthroid] 225 mcg PO Q6AM 04/09/19 Menthol/Zinc Oxide [Calmoseptine Ointment] 1 applic TP TIDP PRN 04/09/19 Omeprazole 20 mg PO Q6AM 04/09/19 Oxycodone HCl [Oxy-Ir 5 mg Tablet] 15 mg PO Q6HP PRN 04/09/19 Pnv,Calcium 72/Iron/Folic Acid [ Vitamin Plus Low Iron] 1 each PO DAILY 04/09/19 Potassium Chloride [Klor-Con 10 Meq Tablet ER] 20 meq PO MOWEFR@1000 04/09/19 Primidone [Mysoline] 50 mg PO Q8 04/09/19 Ramipril [Altace 2.5 mg Capsule] 2.5 mg PO QHS 04/09/19 Cyclobenzaprine HCl [Flexeril 10 mg Tablet] 10 mg PO BIDP PRN 04/20/19 Albuterol Sulfate [Proair HFA Inhalation Aerosol 8.5 gm MDI] 2 puff IH Q4HP PRN 12/08/19 Allopurinol [Zyloprim 100 mg Tablet] 100 mg PO DAILY 12/08/19 Azelastine HCl 1 spray NASL BID 12/08/19 Calcitriol [Rocaltrol 0.25 mcg Capsule] 0.25 mg PO QHS 12/08/19 Dicyclomine HCl [Bentyl 10 mg Capsule] 10 mg PO TID 12/08/19 Diphenoxylate HCl/Atropine [Lomotil 2.5-0.025 mg Tablet] 1 tab PO QIDP PRN 12/08/19 Nystatin [Mycostatin Topical Powder 15 gm] 1 applic TP TIDP PRN 12/08/19 Promethazine HCl [Phenergan 25 mg Tablet] 25 mg PO Q8HP PRN 12/08/19 Ropinirole HCl [Requip 0.25 mg Tablet] 0.5 mg PO DAILY 12/08/19 Torsemide [Demadex 20 mg Tablet] 40 mg PO DAILY 12/08/19 History of Present Illiness History of Present Illness: LEATHA ATKINS is a 64 year old female with a history of congestive heart failure, hypertension, chronic renal failure believed to be stage III and COPD. She fell several days ago and has hip pain but did not sustain a fracture. Unfortunately her oral intake decreased but her diuretics and ALFRED inhibitor medications continued. When seen in the emergency department she was found to have a creatinine of 4.7 with a BUN of 103. She then began to experience shortness of breath. A venous blood gas was drawn. She was hypoxic and hypercapnic and required BiPAP. Her chest x-ray is not definitive for a pneumonia. Her brain natretic peptide is only 800. She will be admitted to the hospitalist service. The primary focus will be treating her acute on chronic kidney injury as well as her acute on chronic hypoxic hypercapnic respiratory failure. Hospital Course Hospital Course: Her respiratory failure quickly resolved back to her baseline, but her renal failure took a little bit more time. She was given some fluids until her volume deficit was corrected, and as she started to swell a little bit we decided to put her back on her Lasix, and fortunately her creatinine continued to trend back into the right direction. We were able to resume all of her home medications and her creatinine went back down to her baseline. Her comorbid conditions were managed with her home medications and not acutely exacerbated during this hospitalization. She is current with [facility] for home health and will resume that upon discharge. She has all of the equipment at home that she needs. Her labs and examination were reassuring and she was discharged in stable condition. Physical Exam Vital Signs: Temp Pulse Resp BP Pulse Ox 97.5 F 86 16 117/57 L 97 12/13/19 11:40 12/13/19 11:40 12/13/19 11:40 12/13/19 11:40 12/13/19 11:40 Intake & Output 12/12/19 12/13/19 12/14/19 06:59 06:59 06:59 Intake Total 3808 884 Output Total 3750 1725 Balance 58 -841 Weight 121.5 kg 122.5 kg General appearance: PRESENT: no acute distress, cooperative, disheveled, morbidly obese Respiratory exam: PRESENT: decreased breath sounds, symmetrical, unlabored. ABSENT: accessory muscle use, chest wall tenderness, crackles, prolonged expiratory phas, rales, rhonchi, tachypnea, wheezes Cardiovascular exam: PRESENT: RRR, +S1, +S2 Pulses: PRESENT: normal carotid pulses Vascular exam: PRESENT: normal capillary refill GI/Abdominal exam: PRESENT: normal bowel sounds, soft, other - Pendulous abdominal pannus. ABSENT: distended, guarding, rebound, tenderness Extremities exam: PRESENT: pedal edema, +2 edema Musculoskeletal exam: ABSENT: ambulatory - Refused to work with physical therapy Neurological exam: PRESENT: awake, oriented to person, oriented to place, oriented to situation Psychiatric exam: PRESENT: appropriate affect, normal mood Skin exam: PRESENT: dry, warm Results Laboratory Results: WBC 6.8 10^3/uL (4.0-10.5) 12/11/19 05:43 RBC 2.86 10^6/uL (3.72-5.28) L 12/11/19 05:43 Hgb 9.1 g/dL (12.0-15.5) L 12/11/19 05:43 Hct 26.0 % (36.0-47.0) L 12/11/19 05:43 MCV 91 fl (80-97) 12/11/19 05:43 MCH 32.0 pg (27.0-33.4) 12/11/19 05:43 MCHC 35.2 g/dL (32.0-36.0) 12/11/19 05:43 RDW 14.2 % (11.5-14.0) H 12/11/19 05:43 Plt Count 201 10^3/uL (150-450) 12/11/19 05:43 Lymph % (Auto) 18.7 % (13-45) 12/11/19 05:43 Otero % (Auto) 11.7 % (3-13) 12/11/19 05:43 Eos % (Auto) 6.7 % (0-6) H 12/11/19 05:43 Baso % (Auto) 0.3 % (0-2) 12/11/19 05:43 Absolute Neuts (auto) 4.3 10^3/uL (1.7-8.2) 12/11/19 05:43 Absolute Lymphs (auto) 1.3 10^3/uL (0.5-4.7) 12/11/19 05:43 Absolute Monos (auto) 0.8 10^3/uL (0.1-1.4) 12/11/19 05:43 Absolute Eos (auto) 0.5 10^3/uL (0.0-0.6) 12/11/19 05:43 Absolute Basos (auto) 0.0 10^3/uL (0.0-0.2) 12/11/19 05:43 Seg Neutrophils % 62.6 % (42-78) 12/11/19 05:43 Carbonic Acid 1.45 mmol/L (1.05-1.35) H 12/09/19 06:40 HCO3/H2CO3 Ratio 16:1 12/09/19 06:40 ABG pH 7.32 (7.35-7.45) L 12/09/19 06:40 ABG pCO2 48.1 mmHg (35-45) H 12/09/19 06:40 ABG pO2 128.9 mmHg (80-100) H 12/09/19 06:40 ABG HCO3 24.3 mmol/L (20-24) H 12/09/19 06:40 ABG Total CO2 25.8 mmol/L (21-25) H 12/09/19 06:40 ABG O2 Saturation 98.3 % (94-98) H 12/09/19 06:40 ABG Base Excess -2.0 mmol/L 12/09/19 06:40 VBG pH 7.26 (7.30-7.42) L 12/08/19 03:00 VBG pCO2 69.5 mmHg (35-63) H* 12/08/19 03:00 VBG HCO3 30.8 mmol/L (20-32) 12/08/19 03:00 VBG Base Excess 1.0 mmol/L 12/08/19 03:00 FiO2 36% 12/09/19 06:40 Sodium 135.5 mmol/L (137-145) L 12/13/19 05:17 Potassium 4.1 mmol/L (3.6-5.0) 12/13/19 05:17 Chloride 98 mmol/L (98-107) 12/13/19 05:17 Carbon Dioxide 30 mmol/L (22-30) 12/13/19 05:17 Anion Gap 8 (5-19) 12/13/19 05:17 BUN 68 mg/dL (7-20) H 12/13/19 05:17 Creatinine 1.65 mg/dL (0.52-1.25) H 12/13/19 05:17 Est GFR ( Amer) 38 (>60) L 12/13/19 05:17 Est GFR (MDRD) Non-Af 31 (>60) L 12/13/19 05:17 Glucose 98 mg/dL (75-110) 12/13/19 05:17 Calcium 9.0 mg/dL (8.4-10.2) 12/13/19 05:17 Phosphorus 4.7 mg/dL (2.5-4.5) H 12/11/19 05:43 Magnesium 2.6 mg/dL (1.6-2.3) H 12/11/19 05:43 Total Bilirubin 0.5 mg/dL (0.2-1.3) 12/08/19 03:00 Direct Bilirubin 0.1 mg/dL (0.0-0.4) 12/08/19 03:00 Neonat Total Bilirubin Not Reportable 12/08/19 03:00 Neonat Direct Bilirubin Not Reportable 12/08/19 03:00 Neonat Indirect Bili Not Reportable 12/08/19 03:00 AST 28 U/L (14-36) 12/08/19 03:00 ALT 14 U/L (<35) 12/08/19 03:00 Alkaline Phosphatase 109 U/L (38-126) 12/08/19 03:00 Creatine Kinase 258 U/L (30-135) H 12/08/19 03:00 Troponin I < 0.012 ng/mL 12/08/19 03:00 NT-Pro-B Natriuret Pep 517 pg/mL (<125) H 12/08/19 03:00 Total Protein 6.3 g/dL (6.3-8.2) 12/08/19 03:00 Albumin 3.2 g/dL (3.5-5.0) L 12/11/19 05:43 Urine Color YELLOW 12/08/19 05:50 Urine Appearance SLIGHTLY-CLOUDY 12/08/19 05:50 Urine pH 5.0 (5.0-9.0) 12/08/19 05:50 Ur Specific [place] 1.018 12/08/19 05:50 Urine Protein NEGATIVE mg/dL (NEGATIVE) 12/08/19 05:50 Urine Glucose (UA) NEGATIVE mg/dL (NEGATIVE) 12/08/19 05:50 Urine Ketones NEGATIVE mg/dL (NEGATIVE) 12/08/19 05:50 Urine Blood NEGATIVE (NEGATIVE) 12/08/19 05:50 Urine Nitrite NEGATIVE (NEGATIVE) 12/08/19 05:50 Urine Bilirubin SMALL (NEGATIVE) H 12/08/19 05:50 Urine Urobilinogen NEGATIVE mg/dL (<2.0) 12/08/19 05:50 Ur Leukocyte Esterase SMALL (NEGATIVE) H 12/08/19 05:50 Urine WBC (Auto) 7 /HPF 12/08/19 05:50 Urine RBC (Auto) 1 /HPF 12/08/19 05:50 Squamous Epi Cells Auto 1 /HPF 12/08/19 05:50 Urine Mucus (Auto) RARE /LPF 12/08/19 05:50 Urine Ascorbic Acid NEGATIVE (NEGATIVE) 12/08/19 05:50 COVID-19 Source Cancelled 12/08/19 07:10 COVID-19 (HEMA) Cancelled 12/08/19 07:10 SARS-CoV-2 (PCR) NEGATIVE (NEGATIVE) 12/08/19 07:10 12/08/19 03:00 Troponin I < 0.012 NT-Pro-B Natriuret Pep 517 H Impressions: Chest X-Ray 12/08/19 02:49 IMPRESSION: Bilateral interstitial opacities may all be chronic in nature but cannot exclude component of edema or atypical pneumonia. Hip X-Ray 12/08/19 02:50 IMPRESSION: No acute abnormality noted although there is limited visualization of the left femoral neck as above. If there is high clinical concern consider CT. Chest X-Ray 12/09/19 06:00 IMPRESSION: Significant improvement the chest with minimal residual right upper lobe interstitial airspace disease. Plan Time Spent: Greater than 30 Minutes Stroke Is this a Stroke Patient?: No Acute Heart Failure - Is this a Heart Failure Patient?: No
[2019-12-14] MEDS ORDERED: ERGOCALCIFEROL (VITAMIN D2) 50000 UNIT (1.25 MG) CAPSULE PO SCH (10:00)
== END 2019-12-13 12:22 | disposition home health service (06) | DRG 682 ==
LOC: ER 02:25 → EH 07:49 → 3W 09:39
PROVIDERS: ADMIT Hospitalist; ATTEND Family Medicine
DX: N17.9 Acute kidney failure, unspecified (principal); J96.22 Acute and chronic respiratory failure with hypercapnia; J44.1 Chronic obstructive pulmonary disease with (acute) exacerbation; E87.1 Hypo-osmolality and hyponatremia; I13.0 Hypertensive heart and chronic kidney disease with heart failure and stage 1 through stage 4 chronic kidney disease, or unspecified chronic kidney disease; I50.32 Chronic diastolic (congestive) heart failure; Z68.42 Body mass index [BMI] 45.0-49.9, adult; N18.3 Chronic kidney disease, stage 3 (moderate); E03.9 Hypothyroidism, unspecified; M25.552 Pain in left hip; D63.1 Anemia in chronic kidney disease; E83.42 Hypomagnesemia; M54.9 Dorsalgia, unspecified; E66.01 Morbid (severe) obesity due to excess calories; F32.9 Major depressive disorder, single episode, unspecified; W06.XXXA Fall from bed, initial encounter; Y93.89 Activity, other specified; Y92.018 Other place in single-family (private) house as the place of occurrence of the external cause; Z86.73 Personal history of transient ischemic attack (TIA), and cerebral infarction without residual deficits; Z03.818 Encounter for observation for suspected exposure to other biological agents ruled out; Z79.891 Long term (current) use of opiate analgesic; Z79.51 Long term (current) use of inhaled steroids; Z79.899 Other long term (current) drug therapy
CPT/HCPCS: 36415; 36600; 51702; 71045; 80048; 80053; 80069; 81001; 82550; 82803; 83735; 83880; 84484; 85025; 87040; 87086; 87635; 93005; 93010; 94640; 94660; 96374; 96375; 99285; J1644; J1652; J1940; J2270; J2930; J3490; J7030; J7040; J7620

== ENCOUNTER → 2020-02-25 | Outpatient (CLI) | payer MEDICARE, OTHER ==
[2020-02-25 14:36] LABS: ABSOLUTE BASOPHILS # (AUTO) 0.1 10^3/uL (0.0-0.2); ABSOLUTE EOSINOPHILS # (AUTO) 0.4 10^3/uL (0.0-0.6); ABSOLUTE LYMPHOCYTES (AUTO) 1.7 10^3/uL (0.5-4.7); ABSOLUTE MONOCYTES (AUTO) 0.4 10^3/uL (0.1-1.4); EOSINOPHILS % (AUTO) 7.6 % (0-6); HEMATOCRIT 34.2 % (36.0-47.0); HEMOGLOBIN 11.4 g/dL (12.0-15.5); LYMPHOCYTES % (AUTO) 30.6 % (13-45); MEAN CORPUSCULAR HEMOGLOBIN 31.2 pg (27.0-33.4); MEAN CORPUSCULAR HGB CONC 33.2 g/dL (32.0-36.0); MEAN CORPUSCULAR VOLUME 94 fl (80-97); MONOCYTES % (AUTO) 7.3 % (3-13); PLATELET COUNT 248 10^3/uL (150-450); RED BLOOD COUNT 3.65 10^6/uL (3.72-5.28); RED CELL DISTRIBUTION WIDTH 15.3 % (11.5-14.0); SEGMENTED NEUTROPHILS % (AUTO) 53.5 % (42-78); TOTAL CELLS COUNTED % (AUTO) 100 %; WHITE BLOOD COUNT 5.5 10^3/uL (4.0-10.5)
[2020-02-25 14:51] LABS: ABSOLUTE BASOPHILS # (AUTO) 0.1 10^3/uL (0.0-0.2); ABSOLUTE EOSINOPHILS # (AUTO) 0.4 10^3/uL (0.0-0.6); ABSOLUTE LYMPHOCYTES (AUTO) 1.7 10^3/uL (0.5-4.7); ABSOLUTE MONOCYTES (AUTO) 0.4 10^3/uL (0.1-1.4); EOSINOPHILS % (AUTO) 7.6 % (0-6); HEMATOCRIT 34.2 % (36.0-47.0); HEMOGLOBIN 11.4 g/dL (12.0-15.5); LYMPHOCYTES % (AUTO) 30.6 % (13-45); MEAN CORPUSCULAR HEMOGLOBIN 31.2 pg (27.0-33.4); MEAN CORPUSCULAR HGB CONC 33.2 g/dL (32.0-36.0); MEAN CORPUSCULAR VOLUME 94 fl (80-97); MONOCYTES % (AUTO) 7.3 % (3-13); PLATELET COUNT 248 10^3/uL (150-450); RED BLOOD COUNT 3.65 10^6/uL (3.72-5.28); RED CELL DISTRIBUTION WIDTH 15.3 % (11.5-14.0); SEGMENTED NEUTROPHILS % (AUTO) 53.5 % (42-78); TOTAL CELLS COUNTED % (AUTO) 100 %; WHITE BLOOD COUNT 5.5 10^3/uL (4.0-10.5)
[2020-02-25 14:55] LABS: ALBUMIN 4.1 g/dL (3.5-5.0); ALKALINE PHOSPHATASE 135 U/L (38-126); ANION GAP 6 (5-19); ASPARTATE AMINO TRANSFERASE 23 U/L (14-36); BILIRUBIN,DIRECT 0.1 mg/dL (0.0-0.4); BILIRUBIN,TOTAL 0.3 mg/dL (0.2-1.3); BLOOD UREA NITROGEN 26 mg/dL (7-20); CALCIUM 9.2 mg/dL (8.4-10.2); CARBON DIOXIDE 31 mmol/L (22-30); CHLORIDE 102 mmol/L (98-107); GLUCOSE 102 mg/dL (75-110); POTASSIUM 4.2 mmol/L (3.6-5.0); TOTAL PROTEIN 7.4 g/dL (6.3-8.2); URIC ACID 5.9 mg/dL (2.5-7.5)
[2020-02-25 14:56] LABS: PHOSPHORUS 3.9 mg/dL (2.5-4.5)
[2020-02-25 15:10] LABS: FREE T4 (FREE THYROXINE) 1.59 ng/dL (0.78-2.19)
[2020-02-25 15:16] LABS: ANION GAP 6 (5-19); BLOOD UREA NITROGEN 26 mg/dL (7-20); CALCIUM 9.2 mg/dL (8.4-10.2); CARBON DIOXIDE 31 mmol/L (22-30); CHLORIDE 102 mmol/L (98-107); GLUCOSE 102 mg/dL (75-110); POTASSIUM 4.2 mmol/L (3.6-5.0)
[2020-02-25 15:24] LABS: THYROID STIMULATING HORMONE 10.4 uIU/mL (0.47-4.68)
[2020-02-25 15:35] LABS: APPEARANCE,URINE CLOUDY; BILIRUBIN,URINE NEGATIVE (NEGATIVE); COLOR,URINE YELLOW; GLUCOSE, URINE NEGATIVE (NEGATIVE); KETONES,URINE NEGATIVE (NEGATIVE); LEUKOCYTE ESTERASE,URINE LARGE (NEGATIVE); NITRITE,URINE NEGATIVE (NEGATIVE); PROTEIN,URINE NEGATIVE (NEGATIVE); URINE SPECIFIC GRAVITY 1.011; UROBILINOGEN,URINE NEGATIVE mg/dL (<2.0)
[2020-02-25 15:51] LABS: URINE CREATININE 67.8 mg/dL (15-278)
[2020-02-25 16:06] LABS: UR PRO/CREAT RATIO RESULT 0.2 mg/mg (0.0-0.2); URINE PROTEIN 11.9 mg/dL (<12)
== END ==
LOC: OD 13:58
PROVIDERS: ATTEND Physician Assistant Medical
DX: I12.9 Hypertensive chronic kidney disease with stage 1 through stage 4 chronic kidney disease, or unspecified chronic kidney disease (principal); N18.4 Chronic kidney disease, stage 4 (severe); E83.42 Hypomagnesemia; E87.6 Hypokalemia; E03.8 Other specified hypothyroidism; D63.8 Anemia in other chronic diseases classified elsewhere; E79.0 Hyperuricemia without signs of inflammatory arthritis and tophaceous disease; N39.0 Urinary tract infection, site not specified
CPT/HCPCS: 36415; 80053; 81001; 82570; 83735; 83970; 84100; 84156; 84439; 84443; 84550; 85025

== ENCOUNTER → 2020-03-05 | Outpatient (CLI) | payer MEDICARE, OTHER ==
[2020-03-05 11:21] LABS: CHOLESTEROL 192.52 mg/dL (0-200); TRIGLYCERIDES 160 mg/dL (<150)
[2020-03-05 11:32] LABS: DIRECT LDL 79 mg/dL (<100)
== END ==
LOC: OD 09:33
PROVIDERS: ATTEND Internal Medicine
DX: E03.8 Other specified hypothyroidism (principal); E78.2 Mixed hyperlipidemia; D63.8 Anemia in other chronic diseases classified elsewhere; E79.0 Hyperuricemia without signs of inflammatory arthritis and tophaceous disease; N18.4 Chronic kidney disease, stage 4 (severe)
CPT/HCPCS: 36415; 80061

== ENCOUNTER → 2020-04-15 | Outpatient (CLI) | payer MEDICARE, OTHER ==
[2020-04-15 13:29] LABS: CHOLESTEROL 179.73 mg/dL (0-200); TRIGLYCERIDES 110 mg/dL (<150)
[2020-04-15 13:39] LABS: DIRECT LDL 74 mg/dL (<100)
[2020-04-15 13:43] LABS: FREE T4 (FREE THYROXINE) 1.33 ng/dL (0.78-2.19)
[2020-04-15 13:57] LABS: THYROID STIMULATING HORMONE 4.52 uIU/mL (0.47-4.68)
== END ==
LOC: OD 12:07
PROVIDERS: ATTEND Internal Medicine
DX: E03.8 Other specified hypothyroidism (principal); E78.2 Mixed hyperlipidemia
CPT/HCPCS: 36415; 80061; 84439; 84443

== ENCOUNTER 2020-04-30 11:44 | Inpatient (IN) | payer MEDICARE, OTHER ==
--- NOTE | 2020-04-30 12:39 | RADIOLOGY REPORT (SQ) ---
EXAM DESCRIPTION: CHEST SINGLE VIEW IMAGES COMPLETED DATE/TIME: 04/30/2020 12:23 pm REASON FOR STUDY: shortness of breath COMPARISON: 12/09/2019 TECHNIQUE: Single frontal radiographic view of the chest acquired. NUMBER OF VIEWS: One view. LIMITATIONS: None. FINDINGS: LUNGS AND PLEURA: No pneumothorax. Similar scattered interstitial changes. No consolidat ion or pleural effusion. MEDIASTINUM AND HILAR STRUCTURES: Stable. HEART AND VASCULAR STRUCTURES: Stable. BONES: No acute findings. HARDWARE: None in the chest. OTHER: No other significant finding. IMPRESSION: Similar scattered interstitial changes. No consolidation or pleural effusion. TECHNICAL DOCUMENTATION: JOB ID: [id number] [place]-72 2010 [employer]- All Rights Reserved Reading location - IP/workstation name: [email or web address]
[2020-04-30 12:42] LABS: ABSOLUTE EOSINOPHILS # (AUTO) 0.3 10^3/uL (0.0-0.6); ABSOLUTE LYMPHOCYTES (AUTO) 1.4 10^3/uL (0.5-4.7); ABSOLUTE MONOCYTES (AUTO) 0.6 10^3/uL (0.1-1.4); ABSOLUTE NEUT (AUTO) 8.2 10^3/uL (1.7-8.2); BASOPHILS % (AUTO) 0.3 % (0-2); EOSINOPHILS % (AUTO) 2.8 % (0-6); HEMATOCRIT 32.5 % (36.0-47.0); HEMOGLOBIN 10.9 g/dL (12.0-15.5); LYMPHOCYTES % (AUTO) 13.5 % (13-45); MEAN CORPUSCULAR HEMOGLOBIN 31.3 pg (27.0-33.4); MEAN CORPUSCULAR HGB CONC 33.5 g/dL (32.0-36.0); MEAN CORPUSCULAR VOLUME 94 fl (80-97); MONOCYTES % (AUTO) 5.3 % (3-13); PLATELET COUNT 275 10^3/uL (150-450); RED BLOOD COUNT 3.47 10^6/uL (3.72-5.28); RED CELL DISTRIBUTION WIDTH 14.2 % (11.5-14.0); SEGMENTED NEUTROPHILS % (AUTO) 78.1 % (42-78); TOTAL CELLS COUNTED % (AUTO) 100 %; WHITE BLOOD COUNT 10.5 10^3/uL (4.0-10.5)
[2020-04-30 13:03] LABS: ALBUMIN 3.5 g/dL (3.5-5.0); ALKALINE PHOSPHATASE 104 U/L (38-126); ANION GAP 13 (5-19); ASPARTATE AMINO TRANSFERASE 21 U/L (14-36); BILIRUBIN,DIRECT 0.5 mg/dL (0.0-0.4); BILIRUBIN,TOTAL 0.5 mg/dL (0.2-1.3); BLOOD UREA NITROGEN 47 mg/dL (7-20); CALCIUM 8.9 mg/dL (8.4-10.2); CARBON DIOXIDE 26 mmol/L (22-30); CHLORIDE 100 mmol/L (98-107); GLUCOSE 112 mg/dL (75-110); POTASSIUM 4.7 mmol/L (3.6-5.0); TOTAL PROTEIN 6.4 g/dL (6.3-8.2)
[2020-04-30] MEDS ORDERED: IPRATROPIUM/ALBUTEROL 0.5-2.5 MG/3 ML AMPUL NEB ONE (13:14)
--- NOTE | 2020-04-30 13:16 | ER Document Report ---
ED Respiratory Problem - General Chief Complaint: Shortness Of Breath Stated Complaint: SHORTNESS OF BREATH Time Seen by Provider: 04/30/20 12:30 Primary Care Provider: MARK HAILE MD [Primary Care Provider] - Follow up as needed Notes: This 64-year-old male presents with a history of COPD and shortness of breath. States that her symptoms have been worsening over the past few days. She presented via EMS with a O2 sat in the 86% range. She denies productive cough, chest pain or palpitations. She has not used a nebulizer treatment since last night, she has home oxygen which she uses intermittently. She also notes increased swelling in the lower extremities. She also complains of a right ankle injury and has had some difficulty ambulating because of the injury. Patient describes coughing and upper respiratory symptoms which began 2 days ago. She denies a contact with any coronavirus positive individuals. States that she rarely leaves the house. Her has no symptoms. TRAVEL OUTSIDE OF THE [place] IN LAST 30 DAYS: No - Related Data Allergies/Adverse Reactions: pregabalin [From Lyrica] Allergy (Unknown, Verified 12/08/19 02:35) trazodone HCl [From Desyrel] Allergy (Unknown, Verified 12/08/19 02:35) cefadroxil Allergy (Verified 12/08/19 02:35) Tricyclic Compounds Allergy (Verified 12/08/19 02:35) cephalexin monohydrate [From Keflex] Adverse Reaction (Verified 12/08/19 02:35) nausea, vomiting erythromycin base [Erythromycin Base] Adverse Reaction (Verified 12/08/19 02:35) nausea, vomiting gabapentin Adverse Reaction (Verified 12/08/19 02:35) Nausea guaifenesin [From Entex T] Adverse Reaction (Verified 12/08/19 02:35) Nausea levofloxacin Adverse Reaction (Verified 12/08/19 02:35) pseudoephedrine [From Entex T] Adverse Reaction (Verified 12/08/19 02:35) Nausea sumatriptan Adverse Reaction (Verified 12/08/19 02:35) Home Medications: Cyclobenzaprine, Cymbalta, Donepezil, Lipitor, Nystatin, Oxycodone, Phenergan, Proair, Prozac Past Medical History - Social History Smoking Status: Unknown if Ever Smoked Family History: CAD, Hypertension - Past Medical History Cardiac Medical History: Reports: Hx Congestive Heart Failure, Hx Hypercholesterolemia, Hx Hypertension Denies: Hx Atrial Fibrillation, Hx Coronary Artery Disease - HIGH CHOLESTEROL , Hx DVT, Hx Heart Attack, Hx Pulmonary Embolism Pulmonary Medical History: Reports: Hx Asthma, Hx Bronchitis, Hx COPD, Hx Pneumonia - Several admissions within the last 12 months, Hx Respiratory Failure Denies: Hx Tuberculosis Neurological Medical History: Reports: Hx Cerebrovascular Accident - 7 YEARS AGO HAS "MEMORY ISSUES" "STROKE X4, last one 2005. Denies: Hx Seizures Endocrine Medical History: Reports: Hx Hypothyroidism. Denies: Hx Diabetes Mellitus Type 1, Hx Diabetes Mellitus Type 2, Hx Hyperthyroidism Renal/ Medical History: Reports: Hx Renal Insufficiency. Denies: Hx End Stage Renal Disease, Hx Peritoneal Dialysis GI Medical History: Denies: Hx Cirrhosis, Hx Crohn's Disease, Hx Hepatitis, Hx Ulcerative Colitis Musculoskeletal Medical History: Reports Hx Arthritis, Denies Hx Fibromyalgia, Denies Hx Gout Skin Medical History: Denies Hx Eczema, Denies Hx Psoriasis Psychiatric Medical History: Reports: Hx Depression Traumatic Medical History: Denies: Hx Traumatic Brain Injury Infectious Medical History: Denies: Hx Hepatitis, Hx HIV Past Surgical History: Reports: Hx Dilation and Curettage, Hx Hysterectomy, Hx Orthopedic Surgery - Wrist fracture repair, Hx Tubal Ligation - Immunizations Hx Diphtheria, Pertussis, Tetanus Vaccination: Yes Hx Pneumococcal Vaccination: 07/22/18 Review of Systems - Review of Systems Notes: Constitutional: Negative for fever. HENT: Negative for sore throat. Eyes: Negative for visual changes. Cardiovascular: Negative for chest pain. Respiratory: + Shortness of breath Gastrointestinal: Negative for abdominal pain, vomiting or diarrhea. Genitourinary: Negative for dysuria. Musculoskeletal: + Edema Skin: Negative for rash. Neurological: Negative for headaches, weakness or numbness. 10 point ROS negative except as marked above and in HPI. Physical Exam - Vital signs Vitals: Resp 15 04/30/20 12:00 - Notes Notes: PHYSICAL EXAMINATION: Physical Exam: General: Morbidly obese 64-year-old female in moderate distress secondary to shortness of breath. HEENT: NC/AT, pupils equal round and reactive to light, MM moist,nares clear, oropharynx clear, airway patent Neck: supple, no adenopathy, no masses. Good range of motion Lungs: Bilateral crackles, good air movement is CVS: Regular rate and rhythm no murmur gallop or rub Abdomen: Soft, active, nontender, no masses, no hepatosplenomegaly Ext: Nonpitting edema bilateral lower extremity right ankle with ecchymosis noted medial foot, tenderness at the medial malleolus no crepitus, no step-off, left leg externally rotated with weakness secondary to prior stroke Neuro: Alert and responsive, moving all 4 extremities on command, cranial nerves intact, no focal findings Skin: Intact no open lesions, no rash Course - Vital Signs Vital signs: Temp Pulse Resp BP Pulse Ox 98.2 F 15 130/69 H 100 04/30/20 12:28 04/30/20 14:01 04/30/20 14:00 04/30/20 14:01 - Laboratory Result Diagrams: 04/30/20 12:20 04/30/20 12:20 Laboratory results interpreted by me: 04/30/20 04/30/20 04/30/20 12:20 12:20 12:20 RBC 3.47 L Hgb 10.9 L Hct 32.5 L RDW 14.2 H Seg Neutrophils % 78.1 H BUN 47 H Creatinine 1.90 H Est GFR ( Amer) 32 L Est GFR (MDRD) Non-Af 26 L Glucose 112 H Direct Bilirubin 0.5 H NT-Pro-B Natriuret Pep 187 H - Diagnostic Test Radiology reviewed: Image reviewed, Reports reviewed Radiology results interpreted by me: 04/30/20 14:28 Chest x-ray with scattered interstitial changes no consolidation, no infiltrate similar to previous x-ray. Ankle x-ray: 9 mm avulsion on the lateral malleolus, a 4 mm avulsion on the medial malleolus. - EKG Interpretation by Me Rate: Normal - EKG interpreted by Dr. Davila: Normal sinus rhythm, rate 100, MN interval 148 QT interval 348 normal axis, Q waves inferior lead, old inferior NH, no acute ST or T wave abnormalities, no ischemic findings, compared to EKG dated 12/12/2019 there are no acute changes noted. Discharge - Discharge Clinical Impression: Morbid obesity with BMI of 45.0-49.9, adult, Bimalleolar avulsion fracture of right ankle Acute on chronic respiratory failure Qualifiers: Respiratory failure complication: hypoxia Qualified Code(s): J96.21 - Acute and chronic respiratory failure with hypoxia COPD (chronic obstructive pulmonary disease) Qualifiers: COPD type: unspecified COPD Qualified Code(s): J44.9 - Chronic obstructive pulmonary disease, unspecified Condition: Good Disposition: ADMITTED INPATIENT Admitting Provider: Abner (Hospitalist) Unit Admitted: IMCU Referrals: MARK HAILE MD [Primary Care Provider] - Follow up as needed
--- NOTE | 2020-04-30 14:00 | RADIOLOGY REPORT (SQ) ---
EXAM DESCRIPTION: ANKLE RIGHT COMPLETE IMAGES COMPLETED DATE/TIME: 04/30/2020 1:37 pm REASON FOR STUDY: Injury COMPARISON: None. EXAM PARAMETERS: NUMBER OF VIEWS: Three views. TECHNIQUE: AP, lateral and oblique radiographic images acquired of the left ankle. LIMITATIONS: None. FINDINGS: MINERALIZATION: Normal. BONES: No dislocation. 9 mm avulsion from the inferior aspect of the lateral malleolus. 4 mm avulsi on from the inferior aspect of the medial malleolus. . JOINTS: Small effusion. SOFT TISSUES: Moderate soft tissue swelling. No radiopaque foreign body. OTHER: No other significant finding. IMPRESSION: 9 mm avulsion from the inferior aspect of the lateral malleolus. 4 mm avulsion from th e inferior aspect of the medial malleolus. TECHNICAL DOCUMENTATION: JOB ID: [id number] [place]-72 2010 [employer]- All Rights Reserved Reading location - IP/workstation name: [email or web address]
[2020-04-30] MEDS ORDERED: IPRATROPIUM/ALBUTEROL 0.5-2.5 MG/3 ML AMPUL NEB PRN (15:52)
[2020-04-30] MEDS ORDERED: ACETAMINOPHEN 325 MG TABLET PO PRN (15:52)
[2020-04-30 15:54] LABS: ARTERIAL BLOOD BASE EXCESS 5.2 mmol/L; ARTERIAL BLOOD FIO2 4L; ARTERIAL BLOOD H2CO3 1.38 mmol/L (1.05-1.35); ARTERIAL BLOOD HCO3 30.1 mmol/L (20-24); ARTERIAL BLOOD O2 SATURATION 99.3 % (94-98); ARTERIAL BLOOD PCO2 45.9 mmHg (35-45); ARTERIAL BLOOD PH 7.44 (7.35-7.45); ARTERIAL BLOOD PO2 186.5 mmHg (80-100); ARTERIAL BLOOD TOTAL CO2 31.5 mmol/L (21-25)
[2020-04-30 15:57] LABS: AMORPHOUS SEDIMENT,URINE TRACE /HPF; APPEARANCE,URINE TURBID; BILIRUBIN,URINE NEGATIVE (NEGATIVE); COLOR,URINE YELLOW; GLUCOSE, URINE NEGATIVE (NEGATIVE); KETONES,URINE NEGATIVE (NEGATIVE); LEUKOCYTE ESTERASE,URINE LARGE (NEGATIVE); NITRITE,URINE NEGATIVE (NEGATIVE); PROTEIN,URINE 30 mg/dL (NEGATIVE); URINE SPECIFIC GRAVITY 1.009; UROBILINOGEN,URINE NEGATIVE mg/dL (<2.0)
[2020-04-30] MEDS ORDERED: LEVOTHYROXINE SODIUM 0.112 MG TABLET PO ONE (16:08)
--- NOTE | 2020-04-30 16:20 | PDOC H&P ---
History of Present Illness Admission Date/PCP: MARK HAILE MD Patient complains of: Came in with complaints of shortness of breath for more than 1 week History of Present Illness: LEATHA ATKINS is a 64 year old female with multiple medical problems including heart failure, morbid obesity, multiple strokes, hypertension, COPD, ex-smoker, hypothyroidism, CKD, osteoarthritis, hypercholesterolemia came to the emergency room with complaints of shortness of breath for the last 1 week. Denies any fever. Dry cough. Came to the emergency room and pulse ox is 86% on room air at the time of arrival. There is no exposure to COVID. Patient is also complaining of difficulty in ambulation and complained of injury to the right ankle x-rays indicate you have small evulsion fractures of the malleolus. Splint will be applied. On examination patient has a unstageable decubitus wounds on the buttocks without any skin breakdown. Is negative for pneumonia. Admitting diagnosis will be COPD exacerbation with acute on chronic respiratory failure. Past Medical History Cardiac Medical History: Reports: Congestive Heart Failure, Hyperlipidema, Hypertension Denies: Atrial Fibrillation, Coronary Artery Disease - HIGH CHOLESTEROL, DVT, Myocardial Infarction, Pulmonary Embolism Pulmonary Medical History: Reports: Asthma, Bronchitis, Chronic Obstructive Pulmonary Disease (COPD), Pneumonia - Several admissions within the last 12 months, Respiratory Failure Denies: Tuberculosis Neurological Medical History: Denies: Seizures Endocrine Medical History: Reports: Hypothyroidism Denies: Diabetes Mellitus Type 1, Diabetes Mellitus Type 2, Hyperthyroidism Renal/ Medical History: Denies: End Stage Renal Disease GI Medical History: Denies: Cirrhosis, Crohn's Disease, Hepatitis, Ulcerative Colitis Musculoskeltal Medical History: Reports: Arthritis Denies: Fibromyalgia, Gout Skin Medical History: Denies: Eczema, Psoriasis Psychiatric Medical History: Reports: Depression Traumatic Medical History: Denies: Traumatic Brain Injury Hematology: Reports: Anemia Denies: Sickle Cell Disease, Bleeding Tendencies Infectious Medical History: Denies: HIV Past Surgical History Past Surgical History: Reports: Hysterectomy, Orthopedic Surgery - Wrist fracture repair, Tubal Ligation Social History Smoking Status: Unknown if Ever Smoked Frequency of Alcohol Use: None Hx Recreational Drug Use: No Drugs: None Hx Prescription Drug Abuse: No - Advance Directive Resuscitation Status: Full Code Family History Family History: CAD, Hypertension Parental Family History Reviewed: Yes - Family history of hypertension and kidney disease. Children Family History Reviewed: Yes Sibling(s) Family History Reviewed.: Yes Medication/Allergy Home Medications: Albuterol Sulfate [Ventolin 0.083% Neb 2.5 mg/3 mL Ampul] 1 vial NEB RTQ4HP PRN 04/09/19 Alprazolam [Xanax 0.5 mg Tablet] 0.5 mg PO QID 04/09/19 Atorvastatin Calcium [Lipitor 20 mg Tablet] 20 mg PO DAILY 04/09/19 Donepezil HCl [Aricept] 10 mg PO QHS 04/09/19 Duloxetine HCl [Cymbalta 30 mg Capsule.dr] 60 mg PO DAILY 04/09/19 Ergocalciferol (Vitamin D2) [Drisdol 50,000 unit (1.25MG) Capsule] 50,000 unit PO MO@1000 04/09/19 Eszopiclone [Lunesta] 3 mg PO QHS 04/09/19 Fluoxetine HCl [Prozac 20 mg Capsule] 80 mg PO DAILY 04/09/19 Fluticasone Propionate [Flonase Nasal [place] 50 Mcg/[place] 16 gm] 1 spray NASL VICTORIANO LY 04/09/19 Fluticasone/Umeclidin/Vilanter [Trelegy 100-62.5-25 Mcg Ellipta 14 Dose/Dpi] 1 puff IH DAILY 04/09/19 Fondaparinux Sodium [Arixtra Inj 7.5 mg/0.6 ml Disp. Syrin] 7.5 mg SUBCUT DAILY 04/09/19 Levocetirizine Dihydrochloride [Xyzal] 5 mg PO QHS 04/09/19 Levothyroxine Sodium [Synthroid] 225 mcg PO Q6AM 04/09/19 Menthol/Zinc Oxide [Calmoseptine Ointment] 1 applic TP TIDP PRN 04/09/19 Omeprazole 20 mg PO Q6AM 04/09/19 Oxycodone HCl [Oxy-Ir 5 mg Tablet] 15 mg PO Q6HP PRN 04/09/19 Pnv,Calcium 72/Iron/Folic Acid [ Vitamin Plus Low Iron] 1 each PO DAILY 04/09/19 Potassium Chloride [Klor-Con 10 Meq Tablet ER] 20 meq PO MOWEFR@1000 04/09/19 Primidone [Mysoline] 50 mg PO Q8 04/09/19 Ramipril [Altace 2.5 mg Capsule] 2.5 mg PO QHS 04/09/19 Cyclobenzaprine HCl [Flexeril 10 mg Tablet] 10 mg PO BIDP PRN 04/20/19 Albuterol Sulfate [Proair HFA Inhalation Aerosol 8.5 gm MDI] 2 puff IH Q4HP PRN 12/08/19 Allopurinol [Zyloprim 100 mg Tablet] 100 mg PO DAILY 12/08/19 Azelastine HCl 1 spray NASL BID 12/08/19 Calcitriol [Rocaltrol 0.25 mcg Capsule] 0.25 mg PO QHS 12/08/19 Dicyclomine HCl [Bentyl 10 mg Capsule] 10 mg PO TID 12/08/19 Diphenoxylate HCl/Atropine [Lomotil 2.5-0.025 mg Tablet] 1 tab PO QIDP PRN 12/08/19 Nystatin [Mycostatin Topical Powder 15 gm] 1 applic TP TIDP PRN 12/08/19 Promethazine HCl [Phenergan 25 mg Tablet] 25 mg PO Q8HP PRN 12/08/19 Ropinirole HCl [Requip 0.25 mg Tablet] 0.5 mg PO DAILY 12/08/19 Torsemide [Demadex 20 mg Tablet] 40 mg PO DAILY 12/08/19 Allergies/Adverse Reactions: pregabalin [From Lyrica] Allergy (Unknown, Verified 12/08/19 02:35) trazodone HCl [From Desyrel] Allergy (Unknown, Verified 12/08/19 02:35) cefadroxil Allergy (Verified 12/08/19 02:35) Tricyclic Compounds Allergy (Verified 12/08/19 02:35) cephalexin monohydrate [From Keflex] Adverse Reaction (Verified 12/08/19 02:35) nausea, vomiting erythromycin base [Erythromycin Base] Adverse Reaction (Verified 12/08/19 02:35) nausea, vomiting gabapentin Adverse Reaction (Verified 12/08/19 02:35) Nausea guaifenesin [From Entex T] Adverse Reaction (Verified 12/08/19 02:35) Nausea levofloxacin Adverse Reaction (Verified 12/08/19 02:35) pseudoephedrine [From Entex T] Adverse Reaction (Verified 12/08/19 02:35) Nausea sumatriptan Adverse Reaction (Verified 12/08/19 02:35) Review of Systems Constitutional: PRESENT: fatigue, weakness. ABSENT: fever(s), headache(s) Eyes: ABSENT: visual disturbances Ears: ABSENT: hearing changes Nose, Mouth, and Throat: ABSENT: sore throat Cardiovascular: ABSENT: edema, orthropnea, palpitations Respiratory: PRESENT: dyspnea Gastrointestinal: ABSENT: abdominal pain, constipation, diarrhea, hematemesis, hematochezia, nausea, vomiting Genitourinary: ABSENT: dysuria, hematuria Musculoskeletal: PRESENT: other - Right ankle pain and swelling. Neurological: ABSENT: abnormal gait, abnormal speech, confusion, dizziness, focal weakness, syncope Psychiatric: ABSENT: anxiety, depression, homidical ideation, suicidal ideation Endocrine: ABSENT: cold intolerance, heat intolerance, polydipsia, polyuria Physical Exam Vital Signs: Temp Pulse Resp BP Pulse Ox 98.2 F 15 130/69 H 100 04/30/20 12:28 04/30/20 14:01 04/30/20 14:00 04/30/20 14:01 Intake & Output 04/29/20 04/30/20 05/01/20 06:59 06:59 06:59 Weight 125 kg General appearance: PRESENT: mild distress, morbidly obese Head exam: PRESENT: atraumatic Eye exam: PRESENT: PERRLA Ear exam: PRESENT: normal external ear exam Mouth exam: PRESENT: neck supple Neck exam: ABSENT: carotid bruit, JVD, lymphadenopathy, thyromegaly Respiratory exam: PRESENT: decreased breath sounds, wheezes Cardiovascular exam: PRESENT: RRR. ABSENT: diastolic murmur, rubs, systolic murmur Vascular exam: PRESENT: normal capillary refill GI/Abdominal exam: PRESENT: normal bowel sounds, soft. ABSENT: distended, guarding, mass, organolmegaly, rebound, tenderness Rectal exam: PRESENT: deferred Extremities exam: PRESENT: full ROM. ABSENT: calf tenderness, clubbing, pedal edema Neurological exam: PRESENT: other - Patient has left lower leg weakness secondary to previous strokes. Skin exam: PRESENT: other - Bruise-like lesion over the buttocks most likely unstageable decubitus wound. Results Laboratory Results: 04/30/20 12:20 04/30/20 12:20 04/30/20 04/30/20 04/30/20: 12: 15:00 WBC 10.5 RBC 3.47 L Hgb 10.9 L Hct 32.5 L MCV 94 MCH 31.3 MCHC 33.5 RDW 14.2 H Plt Count 275 Seg Neutrophils % 78.1 H Carbonic Acid 1.38 H HCO3/H2CO3 Ratio 21:1 ABG pH 7.44 ABG pCO2 45.9 H ABG pO2 186.5 H ABG HCO3 30.1 H ABG O2 Saturation 99.3 H ABG Base Excess 5.2 FiO2 4L Sodium 139.1 Potassium 4.7 Chloride 100 Carbon Dioxide 26 Anion Gap 13 BUN 47 H Creatinine 1.90 H Est GFR ( Amer) 32 L Glucose 112 H Calcium 8.9 Total Bilirubin 0.5 AST 21 Alkaline Phosphatase 104 Total Protein 6.4 Albumin 3.5 Urine Color Urine Appearance Urine pH Ur Specific [place] Urine Protein Urine Glucose (UA) Urine Ketones Urine Blood Urine Nitrite Ur Leukocyte Esterase Urine WBC (Auto) Urine RBC (Auto) 04/30/20 15:30 WBC RBC Hgb Hct MCV MCH MCHC RDW Plt Count Seg Neutrophils % Carbonic Acid HCO3/H2CO3 Ratio ABG pH ABG pCO2 ABG pO2 ABG HCO3 ABG O2 Saturation ABG Base Excess FiO2 Sodium Potassium Chloride Carbon Dioxide Anion Gap BUN Creatinine Est GFR ( Amer) Glucose Calcium Total Bilirubin AST Alkaline Phosphatase Total Protein Albumin Urine Color YELLOW Urine Appearance TURBID Urine pH 6.0 Ur Specific [place] 1.009 Urine Protein 30 H Urine Glucose (UA) NEGATIVE Urine Ketones NEGATIVE Urine Blood SMALL H Urine Nitrite NEGATIVE Ur Leukocyte Esterase LARGE H Urine WBC (Auto) >182 Urine RBC (Auto) 15 04/30/20 04/30/20 12:20 12:20 Troponin I < 0.012 NT-Pro-B Natriuret Pep 187 H Impressions: Chest X-Ray 04/30/20 11:47 IMPRESSION: Similar scattered interstitial changes. No consolidation or pleural effusion. Ankle X-Ray 04/30/20 13:12 IMPRESSION: 9 mm avulsion from the inferior aspect of the lateral malleolus. 4 mm avulsion from the inferior aspect of the medial malleolus. Assessment and Plan - Diagnosis (1) Acute on chronic respiratory failure Qualifiers: Respiratory failure complication: hypoxia Qualified Code(s): J96.21 - Acute and chronic respiratory failure with hypoxia Is this a current diagnosis for this admission?: Yes Plan: 04/30/2020-patient is going to be admitted to [facility] as inpatient for acute on chronic respiratory failure. Requiring oxygen supplementation. Started on IV Solu-Medrol 40 mg every 12 hours, incentive spirometry, albuterol nebulizations, Pulmicort nebulizations. GI prophylaxis initiated. Patient is on Arixtra at home for multiple strokes. Started on IV Rocephin 2 g daily. (2) Bimalleolar avulsion fracture of right ankle Is this a current diagnosis for this admission?: Yes Plan: 04/30/2020-x-ray suggestive of small evulsion fractures of both lateral and medial malleolus of the right ankle. CT of the right ankle is requested. If needed Ortho will be consulted tomorrow. (3) COPD (chronic obstructive pulmonary disease) Qualifiers: COPD type: unspecified COPD Qualified Code(s): J44.9 - Chronic obstructive pulmonary disease, unspecified Is this a current diagnosis for this admission?: No Plan: 04/30/2020-patient has history of COPD on 2 L of oxygen. Patient is ex-smoker. Quit smoking 20 years ago. (4) Morbid obesity with BMI of 45.0-49.9, adult Is this a current diagnosis for this admission?: No Plan: 04/30/2020-patient BMI is more than 47. Diet exercise weight loss lifestyle modifications discussed with the patient. (5) Hypertension Qualifiers: Hypertension type: essential hypertension Qualified Code(s): I10 - Essential (primary) hypertension Is this a current diagnosis for this admission?: No Plan: 04/30/2020-patient history of chronic essential hypertension. Blood pressure is 130/69. Patient is on ramipril ramipril 2.5 mg p.o. daily, torsemide 40 mg p.o. daily. Plan is to resume the medication during the hospital stay. (6) Cerebral vascular disease Is this a current diagnosis for this admission?: No Plan: 04/30/2020-patient has history of multiple strokes. Taking aspirin, atorvastatin, Arixtra at home. Plan is to continue the medications during the hospital stay. (7) CKD (chronic kidney disease) Is this a current diagnosis for this admission?: No Plan: 04/30/2020-patient has history of chronic kidney disease. To continue calcitriol and ergocalciferol during the hospital stay. (8) CHF (congestive heart failure) Is this a current diagnosis for this admission?: No Plan: 04/30/2020-patient is given the history of congestive heart failure. Echocardiogram done in 2018 indicated above EF of more than 70% with normal left ventricular systolic function. Plan is to repeat the echocardiogram this time. - Time Anticipated Discharge Disposition: Home, Self Care Anticipated Discharge Timeframe: within 72 hours
[2020-04-30] MEDS ORDERED: LEVOTHYROXINE SODIUM 0.075 MG TABLET PO ONE (17:00)
[2020-04-30] MEDS ORDERED: LEVOTHYROXINE SODIUM 0.15 MG TABLET PO ONE (17:00)
[2020-04-30] MEDS ORDERED: TORSEMIDE 20 MG TABLET PO ONE (17:00)
--- NOTE | 2020-04-30 17:15 | RADIOLOGY REPORT (SQ) ---
EXAM DESCRIPTION: CT RT LOWER EXTREMITY WITHOUT IMAGES COMPLETED DATE/TIME: 04/30/2020 4:54 pm REASON FOR STUDY: rt ankle fracture COMPARISON: Earlier radiograph TECHNIQUE: Axial CT images were obtained of the right ankle without contrast. Sagittal and coronal reformations were performed. LIMITATIONS: None. FINDINGS: There is a 1.5 cm avulsion fracture of the posterior distal fibula with fracture line exte nding to the ankle mortise, no significant displacement. The ankle mortise is intact. There is a 4 mm inferior avulsion from the medial malleolus. No other fractures identified. Soft tissue swelling is present and a small joint effusion. IMPRESSION: There is a 1.5 cm avulsion fracture of the posterior distal fibula with fracture line ex tending to the ankle mortise, no significant displacement. The ankle mortise is intact. There is a 4 mm inferior avulsion from the medial malleolus. No other fractures identified. TECHNICAL DOCUMENTATION: JOB ID: [id number] [email or web address]- All Rights Reserved Reading location - IP/workstation name: [email or web address]
[2020-04-30] MEDS ORDERED: TORSEMIDE 20 MG TABLET ONE ×2 (17:49→19:01)
[2020-04-30] MEDS ORDERED: LEVOTHYROXINE SODIUM 0.15 MG TABLET ONE (17:50)
[2020-04-30] MEDS: CEFTRIAXONE 2 GM/D5W RTU 2 GM/50 ML RTUPB IV SCH (17:59)
[2020-04-30] MEDS: PANTOPRAZOLE SODIUM 40 MG TABLET.DR PO SCH (18:00)
[2020-04-30] MEDS: METHYLPREDNISOLONE INJ 40 MG/1 ML SDV IV SCH (18:01)
[2020-04-30] MEDS: ALPRAZOLAM 0.5 MG TABLET PO SCH ×2 (18:01→23:59)
[2020-04-30] MEDS: OXYCODONE-ACETAMINOPHEN 5-325 MG TABLET PO PRN (18:58)
[2020-04-30] MEDS ORDERED: OXYCODONE HCL IR 5 MG TABLET PO ONE (21:21)
--- NOTE | 2020-04-30 22:05 | EKG REPORT ---
SEVERITY:- OTHERWISE NORMAL ECG - SINUS TACHYCARDIA : Confirmed by: Ladonna Ellis MD 30-Apr-2020 22:05:15
[2020-04-30] MEDS ORDERED: RAMIPRIL 2.5 MG CAPSULE ONE (22:15)
[2020-04-30] MEDS: PRIMIDONE 50 MG TABLET PO SCH (22:19)
[2020-04-30] MEDS: ATORVASTATIN CALCIUM 40 MG TABLET PO SCH (22:19)
[2020-04-30] MEDS: RAMIPRIL 2.5 MG CAPSULE PO SCH (22:20)
[2020-05-01] MEDS: OXYCODONE-ACETAMINOPHEN 5-325 MG TABLET PO PRN ×4 (01:21→23:12)
[2020-05-01] MEDS: ALPRAZOLAM 0.5 MG TABLET PO SCH ×4 (05:57→23:59)
[2020-05-01] MEDS: PRIMIDONE 50 MG TABLET PO SCH ×3 (05:58→22:04)
[2020-05-01] MEDS: PANTOPRAZOLE SODIUM 40 MG TABLET.DR PO SCH ×2 (05:58→17:25)
[2020-05-01] MEDS: METHYLPREDNISOLONE INJ 40 MG/1 ML SDV IV SCH ×2 (05:58→17:25)
[2020-05-01] MEDS: LEVOTHYROXINE SODIUM 0.112 MG TABLET PO SCH (06:31)
[2020-05-01] MEDS ORDERED: FONDAPARINUX SODIUM INJ 2.5 MG/0.5 ML DISP.SYRIN SUBCUT SCH ×2 (08:00)
--- NOTE | 2020-05-01 08:37 | PDOC PROGRESS REPORT ---
Subjective Progress Note for:: 05/01/20 Subjective:: 64 year old female with multiple medical problems including heart failure, morbid obesity, multiple strokes, hypertension, COPD, ex-smoker, hypothyroidism, CKD, osteoarthritis, hypercholesterolemia came to the emergency room with complaints of shortness of breath for the last 1 week. Denies any fever. Dry cough. Came to the emergency room and pulse ox is 86% on room air at the time of arrival. There is no exposure to COVID. Patient is also complaining of dif ficulty in ambulation and complained of injury to the right ankle x-rays indicate you have small evulsion fractures of the malleolus. Splint will be applied. On examination patient has a unstageable decubitus wounds on the buttocks without any skin breakdown. Is negative for pneumonia. Admitting diagnosis will be COPD exacerbation with acute on chronic respiratory failure. [id number] female morbidly obese female admitted for shortness of breath. COVID-19 is unlikely. Patient is receiving IV Solu-Medrol, nebulizer treatments. She is also on IV Rocephin 2 g daily. Pulse ox is 97% on 5 L this morning. She also complained of right ankle pain at the time of admission CT of the right ankle indicates 1.5 cm avulsion fracture of the distal fibula and a small evulsion fracture of the medial malleolus. I spoke to Dr. Mo Ulloa he is going to look at the patient today. Reason For Visit: COPD EXACERBATION Physical Exam Vital Signs: Temp Pulse Resp BP Pulse Ox 97.9 F 76 18 123/59 L 97 05/01/20 08:20 05/01/20 07:00 05/01/20 03:25 05/01/20 03:25 05/01/20 05:53 Intake & Output 04/30/20 05/01/20 05/02/20 06:59 06:59 06:59 Intake Total 310 Output Total 1175 Balance -865 Weight 128.3 kg General appearance: PRESENT: no acute distress, morbidly obese Head exam: PRESENT: atraumatic Eye exam: PRESENT: PERRLA Mouth exam: PRESENT: moist, tongue midline Teeth exam: PRESENT: poor dentation Neck exam: ABSENT: carotid bruit, JVD, lymphadenopathy, thyromegaly Respiratory exam: PRESENT: decreased breath sounds Cardiovascular exam: PRESENT: RRR. ABSENT: diastolic murmur, rubs, systolic murmur GI/Abdominal exam: PRESENT: normal bowel sounds, soft. ABSENT: distended, guarding, mass, organolmegaly, rebound, tenderness Rectal exam: PRESENT: deferred Extremities exam: PRESENT: full ROM. ABSENT: calf tenderness, clubbing, pedal edema Neurological exam: PRESENT: alert, awake, oriented to person, oriented to place, oriented to time, oriented to situation, CN II-XII grossly intact. ABSENT: motor sensory deficit Skin exam: PRESENT: dry, intact, warm. ABSENT: cyanosis, rash Results Laboratory Results: 04/30/20 12:20 04/30/20 12:20 04/30/20 04/30/20 04/30/20 12: 12: 15:00 WBC 10.5 RBC 3.47 L Hgb 10.9 L Hct 32.5 L MCV 94 MCH 31.3 MCHC 33.5 RDW 14.2 H Plt Count 275 Seg Neutrophils % 78.1 H Carbonic Acid 1.38 H HCO3/H2CO3 Ratio 21:1 ABG pH 7.44 ABG pCO2 45.9 H ABG pO2 186.5 H ABG HCO3 30.1 H ABG O2 Saturation 99.3 H ABG Base Excess 5.2 FiO2 4L Sodium 139.1 Potassium 4.7 Chloride 100 Carbon Dioxide 26 Anion Gap 13 BUN 47 H Creatinine 1.90 H Est GFR ( Amer) 32 L Glucose 112 H Calcium 8.9 Total Bilirubin 0.5 AST 21 Alkaline Phosphatase 104 Total Protein 6.4 Albumin 3.5 Urine Color Urine Appearance Urine pH Ur Specific [place] Urine Protein Urine Glucose (UA) Urine Ketones Urine Blood Urine Nitrite Ur Leukocyte Esterase Urine WBC (Auto) Urine RBC (Auto) 04/30/20 15:30 WBC RBC Hgb Hct MCV MCH MCHC RDW Plt Count Seg Neutrophils % Carbonic Acid HCO3/H2CO3 Ratio ABG pH ABG pCO2 ABG pO2 ABG HCO3 ABG O2 Saturation ABG Base Excess FiO2 Sodium Potassium Chloride Carbon Dioxide Anion Gap BUN Creatinine Est GFR ( Amer) Glucose Calcium Total Bilirubin AST Alkaline Phosphatase Total Protein Albumin Urine Color YELLOW Urine Appearance TURBID Urine pH 6.0 Ur Specific [place] 1.009 Urine Protein 30 H Urine Glucose (UA) NEGATIVE Urine Ketones NEGATIVE Urine Blood SMALL H Urine Nitrite NEGATIVE Ur Leukocyte Esterase LARGE H Urine WBC (Auto) >182 Urine RBC (Auto) 15 04/30/20 04/30/20 04/30/20 12:20 12:20 18:19 Troponin I < 0.012 < 0.012 NT-Pro-B Natriuret Pep 187 H 04/30/20 21:35 Troponin I < 0.012 NT-Pro-B Natriuret Pep Impressions: Lower Extremity CT 04/30/20 00:00 IMPRESSION: There is a 1.5 cm avulsion fracture of the posterior distal fibula with fracture line extending to the ankle mortise, no significant displacement. The ankle mortise is intact. There is a 4 mm inferior avulsion from the medial malleolus. No other fractures identified. Chest X-Ray 04/30/20 11:47 IMPRESSION: Similar scattered interstitial changes. No consolidation or pleural effusion. Ankle X-Ray 04/30/20 13:12 IMPRESSION: 9 mm avulsion from the inferior aspect of the lateral malleolus. 4 mm avulsion from the inferior aspect of the medial malleolus. Assessment and Plan - Diagnosis (1) Acute on chronic respiratory failure Qualifiers: Respiratory failure complication: hypoxia Qualified Code(s): J96.21 - Acute and chronic respiratory failure with hypoxia Is this a current diagnosis for this admission?: Yes Plan: 04/30/2020-patient is going to be admitted to [facility] as inpatient for acute on chronic respiratory failure. Requiring oxygen supplementation. Started on IV Solu-Medrol 40 mg every 12 hours, incentive spirometry, albuterol nebulizations, Pulmicort nebulizations. GI prophylaxis initiated. Patient is on Arixtra at home for multiple strokes. Started on IV Rocephin 2 g daily. 05/01/[id number]-old female admitted with acute on chronic respiratory failure. On 5 L of oxygen this morning. Plan is to continue IV Solu-Medrol 40 mg every 12 hours, albuterol nebulizations, Pulmicort nebs, incentive spirometry. Patient is also on 2 g of IV Rocephin daily. Blood cultures are negative so far. Plan is to continue the present management at this time. COVID-19 is unlikely. (2) Bimalleolar avulsion fracture of right ankle Is this a current diagnosis for this admission?: Yes Plan: 04/30/2020-x-ray suggestive of small evulsion fractures of both lateral and med ial malleolus of the right ankle. CT of the right ankle is requested. If needed Ortho will be consulted tomorrow. 04/01/2020-Case was discussed with dr Mo Ulloa he is going to look at the patient today. (3) COPD (chronic obstructive pulmonary disease) Qualifiers: COPD type: unspecified COPD Qualified Code(s): J44.9 - Chronic obstructive pulmonary disease, unspecified Is this a current diagnosis for this admission?: No Plan: 04/30/2020-patient has history of COPD on 2 L of oxygen. Patient is ex-smoker. Quit smoking 20 years ago. (4) Morbid obesity with BMI of 45.0-49.9, adult Is this a current diagnosis for this admission?: No Plan: 04/30/2020-patient BMI is more than 47. Diet exercise weight loss lifestyle modifications discussed with the patient. (5) Hypertension Qualifiers: Hypertension type: essential hypertension Qualified Code(s): I10 - Essential (primary) hypertension Is this a current diagnosis for this admission?: No Plan: 04/30/2020-patient history of chronic essential hypertension. Blood pressure is 130/69. Patient is on ramipril ramipril 2.5 mg p.o. daily, torsemide 40 mg p.o. daily. Plan is to resume the medication during the hospital stay. 05/01/2020-blood pressure this morning is 123/60. Stable. Plan is to continue the present management at this time. (6) Cerebral vascular disease Is this a current diagnosis for this admission?: No Plan: 04/30/2020-patient has history of multiple strokes. Taking aspirin, atorvastatin, Arixtra at home. Plan is to continue the medications during the hospital stay. (7) CKD (chronic kidney disease) Is this a current diagnosis for this admission?: No Plan: 04/30/2020-patient has history of chronic kidney disease. To continue calcitriol and ergocalciferol during the hospital stay. (8) CHF (congestive heart failure) Is this a current diagnosis for this admission?: No Plan: 04/30/2020-patient is given the history of congestive heart failure. Echocardiogram done in 2018 indicated above EF of more than 70% with normal left ventricular systolic function. Plan is to repeat the echocardiogram this time. - Time Anticipated Discharge Disposition: Home, Self Care Anticipated Discharge Timeframe: within 72 hours
[2020-05-01 08:49] LABS: ABSOLUTE EOSINOPHILS # (AUTO) 0.1 10^3/uL (0.0-0.6); ABSOLUTE LYMPHOCYTES (AUTO) 1.3 10^3/uL (0.5-4.7); ABSOLUTE MONOCYTES (AUTO) 0.4 10^3/uL (0.1-1.4); ABSOLUTE NEUT (AUTO) 6.5 10^3/uL (1.7-8.2); BASOPHILS % (AUTO) 0.3 % (0-2); EOSINOPHILS % (AUTO) 1.3 % (0-6); HEMATOCRIT 31.2 % (36.0-47.0); HEMOGLOBIN 10.5 g/dL (12.0-15.5); LYMPHOCYTES % (AUTO) 15.5 % (13-45); MEAN CORPUSCULAR HEMOGLOBIN 31.2 pg (27.0-33.4); MEAN CORPUSCULAR HGB CONC 33.6 g/dL (32.0-36.0); MEAN CORPUSCULAR VOLUME 93 fl (80-97); MONOCYTES % (AUTO) 4.5 % (3-13); PLATELET COUNT 261 10^3/uL (150-450); RED BLOOD COUNT 3.36 10^6/uL (3.72-5.28); RED CELL DISTRIBUTION WIDTH 14.4 % (11.5-14.0); SEGMENTED NEUTROPHILS % (AUTO) 78.4 % (42-78); TOTAL CELLS COUNTED % (AUTO) 100 %; WHITE BLOOD COUNT 8.3 10^3/uL (4.0-10.5)
[2020-05-01] MEDS: BUDESONIDE NEB 0.25 MG/2 ML AMPUL NEB SCH (08:53)
[2020-05-01 09:06] LABS: ALBUMIN 3.6 g/dL (3.5-5.0); ALKALINE PHOSPHATASE 122 U/L (38-126); ANION GAP 11 (5-19); ASPARTATE AMINO TRANSFERASE 19 U/L (14-36); BILIRUBIN,DIRECT 0.4 mg/dL (0.0-0.4); BILIRUBIN,TOTAL 0.4 mg/dL (0.2-1.3); BLOOD UREA NITROGEN 47 mg/dL (7-20); CARBON DIOXIDE 29 mmol/L (22-30); CHLORIDE 97 mmol/L (98-107); GLUCOSE 99 mg/dL (75-110); POTASSIUM 4.4 mmol/L (3.6-5.0); TOTAL PROTEIN 6.6 g/dL (6.3-8.2); TRIGLYCERIDES 68 mg/dL (<150)
[2020-05-01 09:16] LABS: NT PRO BNP 230 pg/mL (<125)
[2020-05-01 09:18] LABS: DIRECT LDL 66 mg/dL (<100)
[2020-05-01 09:21] LABS: TROPONIN I < 0.012 ng/mL
[2020-05-01] MEDS: CALCITRIOL 0.25 MCG CAPSULE PO SCH (10:12)
[2020-05-01] MEDS: ROPINIROLE HCL 0.25 MG TABLET PO SCH (10:12)
[2020-05-01] MEDS: ALLOPURINOL 100 MG TABLET PO SCH (10:12)
[2020-05-01] MEDS: ASPIRIN 81 MG TABLET, CHEWABLE PO SCH (10:13)
[2020-05-01] MEDS: DULOXETINE HCL 30 MG CAPSULE.DR PO SCH (10:13)
[2020-05-01] MEDS: FONDAPARINUX SODIUM INJ 7.5 MG/0.6 ML DISP.SYRIN SUBCUT SCH (10:13)
[2020-05-01] MEDS: DONEPEZIL HCL 5 MG TABLET PO SCH (10:13)
[2020-05-01] MEDS: ONDANSETRON HCL INJ/PF 4 MG/2 ML SDV IV PRN ×2 (11:24→19:45)
--- NOTE | 2020-05-01 14:29 | PDOC CONSULTATION ---
Consultation Consult Date: 05/01/20 Provider Consulted: RENE JAMES Consult reason:: Fractured right ankle History of Present Illness Admission Date/PCP: 04/30/20 16:11 MARK HAILE MD Patient is a 64-year-old female who is very limited in her normal ambulation with multiple coronary conditions presents the emergency room with shortness of breath and lightheadedness has been admitted for work-up and during the course of work-up found to have a bimalleolar fracture avulsion type at the distal fibula and tibia. Patient complains of: Ankle pain History of Present Illness: LEATHA ATKINS is a 64 year old female Patient is a 64-year-old female who is very limited in her normal ambulation with multiple coronary conditions presents the emergency room with shortness of breath and lightheadedness has been admitted for work-up and during the course of work-up found to have a bimalleolar fracture avulsion type at the distal fibula and tibia. Past Medical History Cardiac Medical History: Denies: Atrial Fibrillation, Coronary Artery Disease - HIGH CHOLESTEROL, DVT, Myocardial Infarction, Pulmonary Embolism Pulmonary Medical History: Denies: Tuberculosis EENT Medical History: Reports: None, Cataracts, Eyes, Ears, Nose, Throat, Other Neurological Medical History: Reports: None, Hemorrhagic CVA, Ischemic CVA, Migraine, Multiple Sclerosis, Other Denies: Seizures Endocrine Medical History: Denies: Diabetes Mellitus Type 1, Diabetes Mellitus Type 2, Hyperthyroidism Renal/ Medical History: Reports: None, Chronic Kidney Disease, Nephrolithiasis, Other Denies: End Stage Renal Disease Malignancy Medical History: Reports: None, Bone Cancer, Brain Cancer, Breast Cancer, Cervical Cancer, Colorectal Cancer, Leukemia, Liver Cancer, Lung Cancer, Lymphoma, Ovarian Cancer, Pancreatic Cancer, Renal (Kidney) Cancer, Skin Cancer, Other GI Medical History: Denies: Cirrhosis, Crohn's Disease, Hepatitis, Ulcerative Colitis Musculoskeltal Medical History: Reports: Arthritis Denies: Fibromyalgia, Gout Skin Medical History: Denies: Eczema, Psoriasis Psychiatric Medical History: Reports: Depression Traumatic Medical History: Denies: Traumatic Brain Injury Hematology: Reports: Anemia Denies: Sickle Cell Disease, Bleeding Tendencies Infectious Medical History: Denies: HIV Past Surgical History Past Surgical History: Reports: Hysterectomy, Orthopedic Surgery - Wrist fracture repair, Tubal Ligation Social History Smoking Status: Former Smoker Electronic Cigarette use?: No Last Time Smoked: 20 years ago Frequency of Alcohol Use: None Hx Recreational Drug Use: No Drugs: None Hx Prescription Drug Abuse: Yes - Advance Directive Resuscitation Status: Full Code Family History Parental Family History Reviewed: No Children Family History Reviewed: NA Sibling(s) Family History Reviewed.: NA Medication/Allergy Home Medications: Alprazolam [Xanax 0.5 mg Tablet] 1 mg PO TIDP PRN 04/09/19 Atorvastatin Calcium [Lipitor 20 mg Tablet] 20 mg PO DAILY 04/09/19 Duloxetine HCl [Cymbalta 30 mg Capsule.dr] 60 mg PO DAILY 04/09/19 Ergocalciferol (Vitamin D2) [Drisdol 50,000 unit (1.25MG) Capsule] 50,000 unit PO MO@1000 04/09/19 Eszopiclone [Lunesta] 3 mg PO QHS 04/09/19 Fluoxetine HCl [Prozac 20 mg Capsule] 80 mg PO DAILY 04/09/19 Fluticasone Propionate [Flonase Nasal Buchtel 50 Mcg/Buchtel 16 gm] 1 spray NASL DAILY 04/09/19 Fluticasone/Umeclidin/Vilanter [Trelegy 100-62.5-25 Mcg Ellipta 14 Dose/Dpi] 1 puff IH DAILY 04/09/19 Levocetirizine Dihydrochloride [Xyzal] 5 mg PO QHS 04/09/19 Omeprazole 20 mg PO Q6AM 04/09/19 Oxycodone HCl [Oxy-Ir 5 mg Tablet] 15 mg PO Q6HP PRN 04/09/19 Pnv,Calcium 72/Iron/Folic Acid [ Vitamin Plus Low Iron] 1 each PO DAILY 04/09/19 Primidone [Mysoline] 50 mg PO Q8 04/09/19 Ramipril [Altace 2.5 mg Capsule] 2.5 mg PO QHS 04/09/19 Cyclobenzaprine HCl [Flexeril 10 mg Tablet] 10 mg PO BIDP PRN 04/20/19 Allopurinol [Zyloprim 100 mg Tablet] 100 mg PO DAILY 12/08/19 Azelastine HCl 1 spray NASL BID 12/08/19 Calcitriol [Rocaltrol 0.25 mcg Capsule] 0.5 mg PO DAILY 12/08/19 Diphenoxylate HCl/Atropine [Lomotil 2.5-0.025 mg Tablet] 1 tab PO QIDP PRN 12/08/19 Nystatin [Mycostatin Topical Powder 15 gm] 1 applic TP TIDP PRN 12/08/19 Promethazine HCl [Phenergan 25 mg Tablet] 25 mg PO Q8HP PRN 12/08/19 Ropinirole HCl [Requip 0.25 mg Tablet] 0.5 mg PO BID 12/08/19 Torsemide [Demadex 20 mg Tablet] 20 mg PO DAILY 12/08/19 Butorphanol Tartrate 10 mg NS ASDIR PRN 05/01/20 Fluoxetine HCl [Prozac] 40 mg PO DAILY 05/01/20 Guaifenesin [Mucinex Sr 600 mg Tablet.sa] 1,200 mg PO Q12 05/01/20 Levothyroxine Sodium [Levo-T] 250 mcg PO DAILY 05/01/20 Magnesium Oxide [Magnesium] 400 mg PO DAILY 05/01/20 Metolazone [Zaroxolyn 5 Mg Tablet] 2.5 mg PO DAILY 05/01/20 Suvorexant [Belsomra] 20 mg PO QHS 05/01/20 Allergies/Adverse Reactions: pregabalin [From Lyrica] Allergy (Unknown, Verified 12/08/19 02:35) trazodone HCl [From Desyrel] Allergy (Unknown, Verified 12/08/19 02:35) cefadroxil Allergy (Verified 12/08/19 02:35) Tricyclic Compounds Allergy (Verified 12/08/19 02:35) cephalexin monohydrate [From Keflex] Adverse Reaction (Verified 12/08/19 02:35) nausea, vomiting erythromycin base [Erythromycin Base] Adverse Reaction (Verified 12/08/19 02:35) nausea, vomiting gabapentin Adverse Reaction (Verified 12/08/19 02:35) Nausea guaifenesin [From Entex T] Adverse Reaction (Verified 12/08/19 02:35) Nausea levofloxacin Adverse Reaction (Verified 12/08/19 02:35) pseudoephedrine [From Entex T] Adverse Reaction (Verified 12/08/19 02:35) Nausea sumatriptan Adverse Reaction (Verified 12/08/19 02:35) Review of Systems Constitutional: ABSENT: chills, fever(s), headache(s), weight gain, weight loss Eyes: ABSENT: visual disturbances Ears: ABSENT: hearing changes Cardiovascular: ABSENT: chest pain, dyspnea on exertion, edema, orthropnea, palpitations Respiratory: ABSENT: cough, hemoptysis Gastrointestinal: ABSENT: abdominal pain, constipation, diarrhea, hematemesis, hematochezia, nausea, vomiting Genitourinary: ABSENT: dysuria, hematuria Integumentary: ABSENT: rash, wounds Neurological: ABSENT: abnormal gait, abnormal speech, confusion, dizziness, f ocal weakness, syncope Psychiatric: ABSENT: anxiety, depression, homidical ideation, suicidal ideation Endocrine: ABSENT: cold intolerance, heat intolerance, menstrual abnormalities, polydipsia, polyuria Hematologic/Lymphatic: ABSENT: easy bleeding, easy bruising, lymphadenopathy Physical Exam Vital Signs: Temp Pulse Resp BP Pulse Ox 97.5 F 92 20 128/55 H 100 05/01/20 11:29 05/01/20 11:29 05/01/20 11:29 05/01/20 11:29 05/01/20 11:29 Intake & Output 04/30/20 05/01/20 05/02/20 06:59 06:59 06:59 Intake Total 310 480 Output Total 1175 300 Balance -865 180 Weight 128.3 kg General appearance: PRESENT: no acute distress, cooperative Head exam: PRESENT: atraumatic, normocephalic Eye exam: PRESENT: conjunctiva pink, EOMI, PERRLA. ABSENT: scleral icterus Ear exam: PRESENT: normal external ear exam Mouth exam: PRESENT: moist, tongue midline Neck exam: PRESENT: full ROM. ABSENT: carotid bruit, JVD, lymphadenopathy, thyromegaly Cardiovascular exam: PRESENT: RRR. ABSENT: diastolic murmur, rubs, systolic murmur Pulses: PRESENT: normal dorsalis pedis pul, +2 pedal pulses bilateral Vascular exam: PRESENT: normal capillary refill GI/Abdominal exam: PRESENT: normal bowel sounds, soft. ABSENT: distended, guarding, mass, organolmegaly, rebound, tenderness Rectal exam: PRESENT: deferred Neurological exam: PRESENT: alert, awake, oriented to person, oriented to place, oriented to time, oriented to situation, CN II-XII grossly intact. ABSENT: motor sensory deficit Psychiatric exam: PRESENT: appropriate affect, normal mood. ABSENT: homicidal ideation, suicidal ideation Skin exam: PRESENT: dry, intact, warm. ABSENT: cyanosis, rash Additonal comments: Patient's right lower extremity was examined and does have ecchymosis both at the lateral medial aspect neurovascularly intact she does have +3 edema however this is equal bilaterally. There is pain to palpation over the lateral and medial malleolus Results Laboratory Results: 05/01/20 07:20 05/01/20 07:20 04/30/20 04/30/20 05/01/20 15:00 15:30 07:20 WBC 8.3 RBC 3.36 L Hgb 10.5 L Hct 31.2 L MCV 93 MCH 31.2 MCHC 33.6 RDW 14.4 H Plt Count 261 Seg Neutrophils % 78.4 H Carbonic Acid 1.38 H HCO3/H2CO3 Ratio 21:1 ABG pH 7.44 ABG pCO2 45.9 H ABG pO2 186.5 H ABG HCO3 30.1 H ABG O2 Saturation 99.3 H ABG Base Excess 5.2 FiO2 4L Sodium Potassium Chloride Carbon Dioxide Anion Gap BUN Creatinine Est GFR ( Amer) Glucose Calcium Magnesium Total Bilirubin AST Alkaline Phosphatase Total Protein Albumin Triglycerides Cholesterol LDL Cholesterol Direct VLDL Cholesterol HDL Cholesterol Lipase TSH Urine Color YELLOW Urine Appearance TURBID Urine pH 6.0 Ur Specific Ferguson 1.009 Urine Protein 30 H Urine Glucose (UA) NEGATIVE Urine Ketones NEGATIVE Urine Blood SMALL H Urine Nitrite NEGATIVE Ur Leukocyte Esterase LARGE H Urine WBC (Auto) >182 Urine RBC (Auto) 15 05/01/20 05/01/20 07:20 07:20 WBC RBC Hgb Hct MCV MCH MCHC RDW Plt Count Seg Neutrophils % Carbonic Acid HCO3/H2CO3 Ratio ABG pH ABG pCO2 ABG pO2 ABG HCO3 ABG O2 Saturation ABG Base Excess FiO2 Sodium 137.0 Potassium 4.4 Chloride 97 L Carbon Dioxide 29 Anion Gap 11 BUN 47 H Creatinine 1.83 H Est GFR ( Amer) 33 L Glucose 99 Calcium 9.0 Magnesium 2.1 Total Bilirubin 0.4 AST 19 Alkaline Phosphatase 122 Total Protein 6.6 Albumin 3.6 Triglycerides 68 Cholesterol 168.60 LDL Cholesterol Direct 66 VLDL Cholesterol 14.0 HDL Cholesterol 64 Lipase 32.8 TSH 3.05 Urine Color Urine Appearance Urine pH Ur Specific Ferguson Urine Protein Urine Glucose (UA) Urine Ketones Urine Blood Urine Nitrite Ur Leukocyte Esterase Urine WBC (Auto) Urine RBC (Auto) 10/05/1004/30/20 04/30/20 12:20 12:20 18:19 Troponin I < 0.012 < 0.012 NT-Pro-B Natriuret Pep 187 H 04/30/20 05/01/20 21:35 07:20 Troponin I < 0.012 < 0.012 NT-Pro-B Natriuret Pep 230 H Impressions: Lower Extremity CT 04/30/20 00:00 IMPRESSION: There is a 1.5 cm avulsion fracture of the posterior distal fibula with fracture line extending to the ankle mortise, no significant displacement. The ankle mortise is intact. There is a 4 mm inferior avulsion from the medial malleolus. No other fractures identified. Chest X-Ray 04/30/20 11:47 IMPRESSION: Similar scattered interstitial changes. No consolidation or pleural effusion. Ankle X-Ray 04/30/20 13:12 IMPRESSION: 9 mm avulsion from the inferior aspect of the lateral malleolus. 4 mm avulsion from the inferior aspect of the medial malleolus. Assessment & Plan - Diagnosis (1) Bimalleolar avulsion fracture of right ankle Is this a current diagnosis for this admission?: Yes - Time Time Spent: 30 to 50 Minutes - During visit patient was counseled on the nature of her fracture of her right ankle. Patient was told that he will be no surgical intervention for this and that I would like to keep him immobilized with a walking boot over the next 2 to 4 weeks. Patient is to follow-up with me in clinic in the next week if she is discharged. Patient was given instruction on taking the boot off while she is sleeping or nonweightbearing also washing and given precautions and worsening of her condition.
[2020-05-01] MEDS ORDERED: INFLUENZA QUAD (6MOS+) 2020-21 VAC 0.5 ML SYR IM ONE (15:00)
[2020-05-01] MEDS ORDERED: NYSTATIN TOPICAL POWDER 15 GM TP PRN (15:14)
[2020-05-01] MEDS: CEFTRIAXONE 2 GM/D5W RTU 2 GM/50 ML RTUPB IV SCH (17:25)
[2020-05-01] MEDS: ATORVASTATIN CALCIUM 40 MG TABLET PO SCH (22:04)
[2020-05-01] MEDS: RAMIPRIL 2.5 MG CAPSULE PO SCH (22:09)
[2020-05-02] MEDS: PANTOPRAZOLE SODIUM 40 MG TABLET.DR PO SCH ×2 (05:31→17:34)
[2020-05-02] MEDS: OXYCODONE-ACETAMINOPHEN 5-325 MG TABLET PO PRN ×4 (05:31→23:31)
[2020-05-02] MEDS: ALPRAZOLAM 0.5 MG TABLET PO SCH ×4 (05:31→23:30)
[2020-05-02] MEDS: PRIMIDONE 50 MG TABLET PO SCH ×3 (05:31→21:44)
[2020-05-02] MEDS: LEVOTHYROXINE SODIUM 0.112 MG TABLET PO SCH (05:31)
[2020-05-02] MEDS: METHYLPREDNISOLONE INJ 40 MG/1 ML SDV IV SCH ×2 (05:32→12:32)
[2020-05-02] MEDS: ONDANSETRON HCL INJ/PF 4 MG/2 ML SDV IV PRN ×3 (05:40→23:31)
[2020-05-02] MEDS ORDERED: CYCLOBENZAPRINE HCL 10 MG TABLET PO PRN (07:00)
[2020-05-02] MEDS ORDERED: DIPHENOXYLATE HCL/ATROP SULF 2.5-0.025 MG TABLET PO PRN (07:00)
[2020-05-02] MEDS ORDERED: METOLAZONE 5 MG TABLET PO SCH (08:00)
[2020-05-02] MEDS: BUDESONIDE NEB 0.25 MG/2 ML AMPUL NEB SCH (08:13)
[2020-05-02 08:35] LABS: ABSOLUTE EOSINOPHILS # (AUTO) 0.1 10^3/uL (0.0-0.6); ABSOLUTE LYMPHOCYTES (AUTO) 1.1 10^3/uL (0.5-4.7); ABSOLUTE MONOCYTES (AUTO) 0.3 10^3/uL (0.1-1.4); ABSOLUTE NEUT (AUTO) 6.3 10^3/uL (1.7-8.2); BASOPHILS % (AUTO) 0.4 % (0-2); EOSINOPHILS % (AUTO) 0.7 % (0-6); HEMATOCRIT 32.7 % (36.0-47.0); HEMOGLOBIN 11.1 g/dL (12.0-15.5); LYMPHOCYTES % (AUTO) 14.5 % (13-45); MEAN CORPUSCULAR HEMOGLOBIN 31.4 pg (27.0-33.4); MEAN CORPUSCULAR HGB CONC 34.1 g/dL (32.0-36.0); MEAN CORPUSCULAR VOLUME 92 fl (80-97); MONOCYTES % (AUTO) 3.5 % (3-13); PLATELET COUNT 252 10^3/uL (150-450); RED BLOOD COUNT 3.55 10^6/uL (3.72-5.28); RED CELL DISTRIBUTION WIDTH 14.3 % (11.5-14.0); SEGMENTED NEUTROPHILS % (AUTO) 80.9 % (42-78); TOTAL CELLS COUNTED % (AUTO) 100 %; WHITE BLOOD COUNT 7.8 10^3/uL (4.0-10.5)
[2020-05-02 08:57] LABS: ALBUMIN 3.9 g/dL (3.5-5.0); ALKALINE PHOSPHATASE 125 U/L (38-126); ANION GAP 10 (5-19); ASPARTATE AMINO TRANSFERASE 20 U/L (14-36); BILIRUBIN,DIRECT 0.4 mg/dL (0.0-0.4); BILIRUBIN,TOTAL 0.5 mg/dL (0.2-1.3); BLOOD UREA NITROGEN 43 mg/dL (7-20); CALCIUM 9.2 mg/dL (8.4-10.2); CARBON DIOXIDE 30 mmol/L (22-30); CHLORIDE 97 mmol/L (98-107); GLUCOSE 110 mg/dL (75-110); POTASSIUM 4.3 mmol/L (3.6-5.0); TOTAL PROTEIN 6.9 g/dL (6.3-8.2)
--- NOTE | 2020-05-02 09:01 | PDOC PROGRESS REPORT ---
Subjective Progress Note for:: 05/02/20 Subjective:: 64 year old female with multiple medical problems including heart failure, morbid obesity, multiple strokes, hypertension, COPD, ex-smoker, hypothyroidism, CKD, osteoarthritis, hypercholesterolemia came to the emergency room with complaints of shortness of breath for the last 1 week. Denies any fever. Dry cough. Came to the emergency room and pulse ox is 86% on room air at the time of arrival. There is no exposure to COVID. Patient is also complaining of dif ficulty in ambulation and complained of injury to the right ankle x-rays indicate you have small evulsion fractures of the malleolus. Splint will be applied. On examination patient has a unstageable decubitus wounds on the buttocks without any skin breakdown. Is negative for pneumonia. Admitting diagnosis will be COPD exacerbation with acute on chronic respiratory failure. 05/01/20 64-year-old female morbidly obese female admitted for shortness of breath. COVID-19 is unlikely. Patient is receiving IV Solu-Medrol, nebulizer treatments. She is also on IV Rocephin 2 g daily. Pulse ox is 97% on 5 L this morning. She also complained of right ankle pain at the time of admission CT of the right ankle indicates 1.5 cm avulsion fracture of the distal fibula and a small evulsion fracture of the medial malleolus. I spoke to Dr. Mo Ulloa he is going to look at the patient today. 05/02/2020-no acute events in the last 24 hours. Pulse oxes 97% on room air. Ortho consult was done for right ankle fracture recommendation is to arrange for the walking boot. Nonweightbearing is recommended. Ortho is planning to see her in the office next week. Reason For Visit: COPD EXACERBATION Physical Exam Vital Signs: Temp Pulse Resp BP Pulse Ox 97.6 F 85 16 155/90 H 98 05/02/20 07:37 05/02/20 08:13 05/02/20 08:13 05/02/20 07:37 05/02/20 08:13 Intake & Output 05/01/20 05/02/20 05/03/20 06:59 06:59 06:59 Intake Total 310 890 Output Total 1175 1500 Balance -865 -610 Weight 128.3 kg 134 kg General appearance: PRESENT: no acute distress, morbidly obese Head exam: PRESENT: atraumatic Eye exam: PRESENT: PERRLA Ear exam: PRESENT: normal external ear exam Mouth exam: PRESENT: neck supple Neck exam: ABSENT: carotid bruit, JVD, lymphadenopathy, thyromegaly Respiratory exam: PRESENT: decreased breath sounds Cardiovascular exam: PRESENT: RRR. ABSENT: diastolic murmur, rubs, systolic murmur Pulses: PRESENT: normal dorsalis pedis pul GI/Abdominal exam: PRESENT: normal bowel sounds, soft. ABSENT: distended, guarding, mass, organolmegaly, rebound, tenderness Rectal exam: PRESENT: deferred Extremities exam: PRESENT: full ROM. ABSENT: calf tenderness, clubbing, pedal edema Neurological exam: PRESENT: alert, awake, oriented to person, oriented to place, oriented to time, oriented to situation, CN II-XII grossly intact. ABSENT: motor sensory deficit Psychiatric exam: PRESENT: appropriate affect, normal mood. ABSENT: homicidal ideation, suicidal ideation Skin exam: PRESENT: dry, intact, warm. ABSENT: cyanosis, rash Results Laboratory Results: 05/02/20 08:11 05/01/20 05/01/20 05/02/20 07:20 07:20 08:11 WBC 7.8 RBC 3.55 L Hgb 11.1 L Hct 32.7 L MCV 92 MCH 31.4 MCHC 34.1 RDW 14.3 H Plt Count 252 Seg Neutrophils % 80.9 H Sodium 137.0 Potassium 4.4 Chloride 97 L Carbon Dioxide 29 Anion Gap 11 BUN 47 H Creatinine 1.83 H Est GFR ( Amer) 33 L Glucose 99 Calcium 9.0 Magnesium 2.1 Total Bilirubin 0.4 AST 19 Alkaline Phosphatase 122 Total Protein 6.6 Albumin 3.6 Triglycerides 68 Cholesterol 168.60 LDL Cholesterol Direct 66 VLDL Cholesterol 14.0 HDL Cholesterol 64 Lipase 32.8 TSH 3.05 04/30/20 04/30/20 04/30/20 12:20 12:20 18:19 Troponin I < 0.012 < 0.012 NT-Pro-B Natriuret Pep 187 H 04/30/20 05/01/20 21:35 07:20 Troponin I < 0.012 < 0.012 NT-Pro-B Natriuret Pep 230 H Impressions: Lower Extremity CT 04/30/20 00:00 IMPRESSION: There is a 1.5 cm avulsion fracture of the posterior distal fibula with fracture line extending to the ankle mortise, no significant displacement. The ankle mortise is intact. There is a 4 mm inferior avulsion from the medial malleolus. No other fractures identified. Chest X-Ray 04/30/20 11:47 IMPRESSION: Similar scattered interstitial changes. No consolidation or pleural effusion. Ankle X-Ray 04/30/20 13:12 IMPRESSION: 9 mm avulsion from the inferior aspect of the lateral malleolus. 4 mm avulsion from the inferior aspect of the medial malleolus. Assessment and Plan - Diagnosis (1) Acute on chronic respiratory failure Qualifiers: Respiratory failure complication: hypoxia Qualified Code(s): J96.21 - Acute and chronic respiratory failure with hypoxia Is this a current diagnosis for this admission?: Yes Plan: 04/30/2020-patient is going to be admitted to [facility] as inpatient for acute on chronic respiratory failure. Requiring oxygen supplementation. Started on IV Solu-Medrol 40 mg every 12 hours, incentive spirometry, albuterol nebulizations, Pulmicort nebulizations. GI prophylaxis initiated. Patient is on Arixtra at home for multiple strokes. Started on IV Rocephin 2 g daily. 05/01/[id number]-old female admitted with acute on chronic respiratory failure. On 5 L of oxygen this morning. Plan is to continue IV Solu-Medrol 40 mg every 12 hours, albuterol nebulizations, Pulmicort nebs, incentive spirometry. Patient is also on 2 g of IV Rocephin daily. Blood cultures are negative so far. Plan is to continue the present management at this time. COVID-19 is unlikely. 05/02/[id number]-old female admitted with acute on chronic respiratory failure. Resolving. Pulse ox is 97% on 2 L this morning. Blood cultures are negative so far. Laying flat in bed communicating well. Chest bilateral entry was decreased no wheezing no crepitations present. (2) Bimalleolar avulsion fracture of right ankle Is this a current diagnosis for this admission?: Yes Plan: 04/30/2020-x-ray suggestive of small evulsion fractures of both lateral and medial malleolus of the right ankle. CT of the right ankle is requested. If needed Ortho will be consulted tomorrow. 05/01/2020-Case was discussed with dr Mo Ulloa he is going to look at the patient today. 05/02/2020-consultation with Ortho done. Recommendation is conservative management with walking boot and nonweightbearing. (3) COPD (chronic obstructive pulmonary disease) Qualifiers: COPD type: unspecified COPD Qualified Code(s): J44.9 - Chronic obstructive pulmonary disease, unspecified Is this a current diagnosis for this admission?: No Plan: 04/30/2020-patient has history of COPD on 2 L of oxygen. Patient is ex-smoker. Quit smoking 20 years ago. (4) Morbid obesity with BMI of 45.0-49.9, adult Is this a current diagnosis for this admission?: No Plan: 04/30/2020-patient BMI is more than 47. Diet exercise weight loss lifestyle modifications discussed with the patient. (5) Hypertension Qualifiers: Hypertension type: essential hypertension Qualified Code(s): I10 - Essential (primary) hypertension Is this a current diagnosis for this admission?: No Plan: 04/30/2020-patient history of chronic essential hypertension. Blood pressure is 130/69. Patient is on ramipril ramipril 2.5 mg p.o. daily, torsemide 40 mg p.o. daily. Plan is to resume the medication during the hospital stay. 05/01/2020-blood pressure this morning is 123/60. Stable. Plan is to continue the present management at this time. 05/02/2020-blood pressure today is 118/68. Stable. (6) Cerebral vascular disease Is this a current diagnosis for this admission?: No Plan: 04/30/2020-patient has history of multiple strokes. Taking aspirin, atorvastatin, Arixtra at home. Plan is to continue the medications during the hospital stay. (7) CKD (chronic kidney disease) Is this a current diagnosis for this admission?: No Plan: 04/30/2020-patient has history of chronic kidney disease. To continue calcitriol and ergocalciferol during the hospital stay. (8) CHF (congestive heart failure) Is this a current diagnosis for this admission?: No Plan: 04/30/2020-patient is given the history of congestive heart failure. Echocardiogram done in 2018 indicated above EF of more than 70% with normal left ventricular systolic function. Plan is to repeat the echocardiogram this time. 05/02/2020-echocardiogram is pending at this time. - Time Anticipated Discharge Disposition: Home, Self Care Anticipated Discharge Timeframe: within 48 hours
[2020-05-02] MEDS: MAGNESIUM OXIDE 400 MG TABLET PO SCH (09:25)
[2020-05-02] MEDS: PRENATAL VITAMIN W DHA CAPSULE PO SCH (09:25)
[2020-05-02] MEDS: ROPINIROLE HCL 0.25 MG TABLET PO SCH (09:25)
[2020-05-02] MEDS: DULOXETINE HCL 30 MG CAPSULE.DR PO SCH (09:25)
[2020-05-02] MEDS: TORSEMIDE 20 MG TABLET PO SCH (09:25)
[2020-05-02] MEDS: ASPIRIN 81 MG TABLET, CHEWABLE PO SCH (09:25)
[2020-05-02] MEDS: CALCITRIOL 0.25 MCG CAPSULE PO SCH (09:25)
[2020-05-02] MEDS: CYANOCOBALAMIN (VITAMIN B-12) 1,000 MCG TABLET PO SCH (09:25)
[2020-05-02] MEDS: GUAIFENESIN 600 MG TABLET.SA PO SCH ×2 (09:25→21:43)
[2020-05-02] MEDS: FONDAPARINUX SODIUM INJ 7.5 MG/0.6 ML DISP.SYRIN SUBCUT SCH (09:26)
[2020-05-02] MEDS: DONEPEZIL HCL 5 MG TABLET PO SCH (09:26)
[2020-05-02] MEDS: ALLOPURINOL 100 MG TABLET PO SCH (09:26)
[2020-05-02] MEDS: FLUTICASONE/UMECLIDIN/VILANTER 100-62.5-25 MCG/DOSE IH SCH (09:26)
[2020-05-02] MEDS: PROMETHAZINE HCL 25 MG TABLET PO PRN ×2 (09:34→19:27)
[2020-05-02] MEDS ORDERED: FOLIC ACID PO SCH (10:00)
[2020-05-02] MEDS ORDERED: IRON PO SCH (10:00)
[2020-05-02] MEDS ORDERED: PNV CALCIUM PO SCH (10:00)
[2020-05-02] MEDS ORDERED: [UNRECOGNIZED DRUG - OTHER] PO SCH (10:00)
[2020-05-02] MEDS ORDERED: FLUTICASONE NASAL SPRAY 50 MCG/SPRY 120 SPRAY/16 GM NASL SCH (10:00)
[2020-05-02] MEDS ORDERED: (PENDING PHARMACY ID) (Magnesium Oxide [Magnesium] 400 MG) PO SCH (10:00)
[2020-05-02] MEDS ORDERED: LEVOTHYROXINE SODIUM 250 MCG PO SCH (10:00)
[2020-05-02] MEDS ORDERED: (PENDING PHARMACY ID) (Azelastine Hcl [Azelastine Hcl] 1 SPRAY) NASL SCH (10:00)
[2020-05-02] MEDS: CEFTRIAXONE 2 GM/D5W RTU 2 GM/50 ML RTUPB IV SCH (17:34)
--- NOTE | 2020-05-02 20:38 | XCELERA REPORT ---
[address] [address] Transthoracic Echocardiogram Report Name: LEATHA ATKINS Age: 64 yrs Gender: Female : 1955 Patient Status: Inpatient Patient Location: [address] [place] [address] Study Date: 05/02/2020 12:44 PM Height: 64 in Weight: 275 lb BSA: 2.2 m2 Procedure: A complete two-dimensional transthoracic echocardiogram was performed (2D, M-mode, spectral and color flow Doppler). Study Quality: Poor. Reason For Study: chf Ordering Physician: MARIBEL COOK Performed By: Pepper Hernandez Interpretation Summary The left ventricle is grossly normal size. Left ventricular systolic function is normal. The Ejection Fraction estimate is 65-70%. Doppler measurements suggest normal left ventricular diastolic function. Regional wall motion abnormalities cannot be excluded due to limited visualization. Valvular structures are not adequately visualized and doppler interrogation was suboptimal therefore no further comments can be made regarding structures of the valves and the presence or absence of regurgitaion/stenosis. RV measurement is innacurate however it appears to be normal in size and function on 2D images. Small, hemodynamically insignificant anterior pericardial effusion. When compared to a prior study dated 06/24/18, LVSF is unchanged. No further comments can be made due to the poor quality of the current study. MMode/2D Measurements & Calculations RVDd: 1.8 cm LVIDd: 5.2 cm FS: 28.9 % Ao root diam: 2.5 cm IVSd: 0.84 cm LVIDs: 3.7 cm EDV(Teich): 131.2 ml Ao root area: 4.9 cm2 LVPWd: 1.0 cm ESV(Teich): 58.9 ml EF(Teich): 55.1 % Doppler Measurements & Calculations MV E max tex: MV dec slope: Ao V2 max: LV V1 max P.5 cm/sec 636.2 cm/sec2 173.4 cm/sec 11.2 mmHg MV A max tex: MV dec time: 0.20 secAo max PG: LV V1 max: 117.1 cm/sec 12.0 mmHg 167.0 cm/sec MV E/A: 1.1 PA V2 max: 130.4 cm/sec PA max P.8 mmHg Left Ventricle The left ventricle is grossly normal size. Left ventricular systolic function is normal. The Ejection Fraction estimate is 65-70%. Doppler measurements suggest normal left ventricular diastolic function. Regional wall motion abnormalities cannot be excluded due to limited visualization. Right Ventricle RV measurement is innacurate however it appears to be normal in size and function on 2D images. The right ventricular systolic function is normal. Atria The right atrium is normal. The left atrial size is normal. Interarterial septum not well visualized and not well dopplered. Cannot comment on ASD/PFO presence. Mitral Valve The mitral valve is not well visualized. Aortic Valve The aortic valve is not well visualized secondary to technical limitations. Tricuspid Valve The tricuspid valve is not well visualized secondary to technical limitations. Pulmonic Valve The pulmonic valve is not well visualized. Effusions Small, hemodynamically insignificant anterior pericardial effusion. : MARIBEL COOK Antonio
[2020-05-02] MEDS: ATORVASTATIN CALCIUM 40 MG TABLET PO SCH (21:43)
[2020-05-02] MEDS: RAMIPRIL 2.5 MG CAPSULE PO SCH (21:44)
[2020-05-02] MEDS ORDERED: (PENDING PHARMACY ID) (Suvorexant [Belsomra] 20 MG) PO SCH (22:00)
[2020-05-02] MEDS ORDERED: CETIRIZINE 5 MG TABLET PO SCH (22:00)
[2020-05-02] MEDS ORDERED: ZOLPIDEM TARTRATE 5 MG TABLET PO SCH (22:00)
[2020-05-02] MEDS ORDERED: DICYCLOMINE HCL 10 MG CAPSULE PO PRN (22:23)
[2020-05-03] MEDS: PANTOPRAZOLE SODIUM 40 MG TABLET.DR PO SCH (05:18)
[2020-05-03] MEDS: PRIMIDONE 50 MG TABLET PO SCH (05:18)
[2020-05-03] MEDS: OXYCODONE-ACETAMINOPHEN 5-325 MG TABLET PO PRN (05:18)
[2020-05-03] MEDS: LEVOTHYROXINE SODIUM 0.112 MG TABLET PO SCH (05:18)
[2020-05-03] MEDS: PROMETHAZINE HCL 25 MG TABLET PO PRN (05:18)
[2020-05-03] MEDS: ALPRAZOLAM 0.5 MG TABLET PO SCH (05:19)
[2020-05-03 06:34] LABS: ABSOLUTE EOSINOPHILS # (AUTO) 0.1 10^3/uL (0.0-0.6); ABSOLUTE LYMPHOCYTES (AUTO) 2.1 10^3/uL (0.5-4.7); ABSOLUTE MONOCYTES (AUTO) 0.6 10^3/uL (0.1-1.4); ABSOLUTE NEUT (AUTO) 5.5 10^3/uL (1.7-8.2); BASOPHILS % (AUTO) 0.4 % (0-2); EOSINOPHILS % (AUTO) 1.5 % (0-6); HEMATOCRIT 29.8 % (36.0-47.0); HEMOGLOBIN 10.2 g/dL (12.0-15.5); LYMPHOCYTES % (AUTO) 25.6 % (13-45); MEAN CORPUSCULAR HEMOGLOBIN 31.2 pg (27.0-33.4); MEAN CORPUSCULAR HGB CONC 34.1 g/dL (32.0-36.0); MEAN CORPUSCULAR VOLUME 92 fl (80-97); MONOCYTES % (AUTO) 6.9 % (3-13); PLATELET COUNT 232 10^3/uL (150-450); RED BLOOD COUNT 3.25 10^6/uL (3.72-5.28); RED CELL DISTRIBUTION WIDTH 14.3 % (11.5-14.0); SEGMENTED NEUTROPHILS % (AUTO) 65.6 % (42-78); TOTAL CELLS COUNTED % (AUTO) 100 %; WHITE BLOOD COUNT 8.4 10^3/uL (4.0-10.5)
[2020-05-03 06:54] LABS: ALBUMIN 3.4 g/dL (3.5-5.0); ALKALINE PHOSPHATASE 106 U/L (38-126); ANION GAP 9 (5-19); ASPARTATE AMINO TRANSFERASE 18 U/L (14-36); BILIRUBIN,DIRECT 0.4 mg/dL (0.0-0.4); BILIRUBIN,TOTAL 0.4 mg/dL (0.2-1.3); BLOOD UREA NITROGEN 40 mg/dL (7-20); CARBON DIOXIDE 29 mmol/L (22-30); CHLORIDE 97 mmol/L (98-107); GLUCOSE 94 mg/dL (75-110); POTASSIUM 4.1 mmol/L (3.6-5.0); TOTAL PROTEIN 6.1 g/dL (6.3-8.2)
[2020-05-03] MEDS: FONDAPARINUX SODIUM INJ 7.5 MG/0.6 ML DISP.SYRIN SUBCUT SCH (08:14)
[2020-05-03] MEDS: BUDESONIDE NEB 0.25 MG/2 ML AMPUL NEB SCH (09:31)
[2020-05-03] MEDS: DULOXETINE HCL 30 MG CAPSULE.DR PO SCH (10:39)
[2020-05-03] MEDS: PRENATAL VITAMIN W DHA CAPSULE PO SCH (10:40)
[2020-05-03] MEDS: GUAIFENESIN 600 MG TABLET.SA PO SCH (10:40)
[2020-05-03] MEDS: ROPINIROLE HCL 0.25 MG TABLET PO SCH (10:41)
[2020-05-03] MEDS: MAGNESIUM OXIDE 400 MG TABLET PO SCH (10:41)
[2020-05-03] MEDS: ALLOPURINOL 100 MG TABLET PO SCH (10:41)
[2020-05-03] MEDS: ASPIRIN 81 MG TABLET, CHEWABLE PO SCH (10:41)
[2020-05-03] MEDS: DONEPEZIL HCL 5 MG TABLET PO SCH (10:42)
[2020-05-03] MEDS: CALCITRIOL 0.25 MCG CAPSULE PO SCH (10:43)
[2020-05-03] MEDS: METHYLPREDNISOLONE INJ 40 MG/1 ML SDV IV SCH (10:43)
[2020-05-03] MEDS: TORSEMIDE 20 MG TABLET PO SCH (10:43)
[2020-05-03] MEDS: CYANOCOBALAMIN (VITAMIN B-12) 1,000 MCG TABLET PO SCH (10:43)
[2020-05-03] MEDS: FLUTICASONE/UMECLIDIN/VILANTER 100-62.5-25 MCG/DOSE IH SCH (10:44)
[2020-05-03] MEDS ORDERED: ERGOCALCIFEROL (VITAMIN D2) 50000 UNIT (1.25 MG) CAPSULE PO SCH (15:00)
--- NOTE | 2020-05-03 15:08 | PDOC DISCHARGE SUMMARY ---
Impression - Admit/DC Date/PCP Admission Date/Primary Care Provider: 04/30/20 16:11 MARK HAILE MD Discharge Date: 05/03/20 - ' - Additional Information Resuscitation Status: Full Code Discharge Diet: Other (Comments) - Vegan Discharge Activity: Activity As Tolerated, Balance Activity w/Rest Referrals: MARK HAILE MD [Primary Care Provider] - 05/09/20 3:00 pm Prescriptions: Sulfamethoxazole/Trimethoprim [Bactrim Ds Tablet] 1 each PO BID #4 tablet Prednisone [Deltasone 20 mg Tablet] 40 mg PO DAILY #3 tablet Oxycodone HCl/Acetaminophen [Percocet 5-325 mg Tablet] 1 tab PO Q6HP PRN #12 tablet PRN Reason: Home Medications: Alprazolam [Xanax 0.5 mg Tablet] 1 mg PO TIDP PRN 04/09/19 Atorvastatin Calcium [Lipitor 20 mg Tablet] 20 mg PO DAILY 04/09/19 Duloxetine HCl [Cymbalta 30 mg Capsule.dr] 60 mg PO DAILY 04/09/19 Ergocalciferol (Vitamin D2) [Drisdol 50,000 unit (1.25MG) Capsule] 50,000 unit PO Q14D 04/09/19 Eszopiclone [Lunesta] 3 mg PO QHS 04/09/19 Fluoxetine HCl [Prozac 20 mg Capsule] 80 mg PO DAILY 04/09/19 Fluticasone Propionate [Flonase Nasal Dante 50 Mcg/Dante 16 gm] 1 spray NASL DAILY 04/09/19 Fluticasone/Umeclidin/Vilanter [Trelegy 100-62.5-25 Mcg Ellipta 14 Dose/Dpi] 1 puff IH DAILY 04/09/19 Levocetirizine Dihydrochloride [Xyzal] 5 mg PO QHS 04/09/19 Omeprazole 20 mg PO Q6AM 04/09/19 Oxycodone HCl [Oxy-Ir 5 mg Tablet] 15 mg PO Q6HP PRN 04/09/19 Pnv,Calcium 72/Iron/Folic Acid [ Vitamin Plus Low Iron] 1 each PO DAILY 04/09/19 Primidone [Mysoline] 50 mg PO Q8 04/09/19 Ramipril [Altace 2.5 mg Capsule] 2.5 mg PO QHS 04/09/19 Cyclobenzaprine HCl [Flexeril 10 mg Tablet] 10 mg PO BIDP PRN 04/20/19 Allopurinol [Zyloprim 100 mg Tablet] 100 mg PO DAILY 12/08/19 Azelastine HCl 1 spray NASL BID 12/08/19 Calcitriol [Rocaltrol 0.25 mcg Capsule] 0.5 mg PO DAILY 12/08/19 Diphenoxylate HCl/Atropine [Lomotil 2.5-0.025 mg Tablet] 1 tab PO QIDP PRN 12/08/19 Nystatin [Mycostatin Topical Powder 15 gm] 1 applic TP TIDP PRN 12/08/19 Promethazine HCl [Phenergan 25 mg Tablet] 25 mg PO Q8HP PRN 12/08/19 Ropinirole HCl [Requip 0.25 mg Tablet] 0.5 mg PO BID 12/08/19 Torsemide [Demadex 20 mg Tablet] 20 mg PO DAILY 12/08/19 Butorphanol Tartrate 10 mg NS ASDIR PRN 05/01/20 Cyanocobalamin (Vitamin B-12) [Vitamin B-12 1000 mcg Tablet] 1 tab PO DAILY 05/01/20 Guaifenesin [Mucinex Sr 600 mg Tablet.sa] 1,200 mg PO Q12 05/01/20 Levothyroxine Sodium [Levo-T] 250 mcg PO DAILY 05/01/20 Magnesium Oxide [Magnesium] 400 mg PO DAILY 05/01/20 Metolazone [Zaroxolyn 5 mg Tablet] 5 mg PO MOWEFR 05/01/20 Suvorexant [Belsomra] 20 mg PO QHS 05/01/20 Oxycodone HCl/Acetaminophen [Percocet 5-325 mg Tablet] 1 tab PO Q6HP PRN #12 tablet 05/03/20 Prednisone [Deltasone 20 mg Tablet] 40 mg PO DAILY #3 tablet 05/03/20 Sulfamethoxazole/Trimethoprim [Bactrim Ds Tablet] 1 each PO BID #4 tablet 05/03/20 History of Present Illiness History of Present Illness: Per Admitting Physician: "64 year old female with multiple medical problems including heart failure, morbid obesity, multiple strokes, hypertension, COPD, ex-smoker, hypothyroidism, CKD, osteoarthritis, hypercholesterolemia came to the emergency room with complaints of shortness of breath for the last 1 week. Denies any fever. Dry cough. Came to the emergency room and pulse ox is 86% on room air at the time of arrival. There is no exposure to COVID. Patient is also complaining of difficulty in ambulation and complained of injury to the right ankle x-rays indicate you have small evulsion fractures of the malleolus. Splint will be applied. On examination patient has a unstageable decubitus wounds on the buttocks without any skin breakdown. Is negative for pneumonia. Admitting diagnosis will be COPD exacerbation with acute on chronic respiratory failure." Hospital Course Hospital Course: Per Previous Physician: "64 year old female with multiple medical problems including heart failure, morbid obesity, multiple strokes, hypertension, COPD, ex-smoker, hypothyroidism, CKD, osteoarthritis, hypercholesterolemia came to the emergency room with complaints of shortness of breath for the last 1 week. Denies any fever. Dry cough. Came to the emergency room and pulse ox is 86% on room air at the time of arrival. There is no exposure to COVID. Patient is also complaining of difficulty in ambulation and complained of injury to the right ankle x-rays indicate you have small evulsion fractures of the malleolus. Splint will be applied. On examination patient has a unstageable decubitus wounds on the buttocks without any skin breakdown. Is negative for pneumonia. Admitting diagnosis will be COPD exacerbation with acute on chronic respiratory failure. 05/01/20 64-year-old female morbidly obese female admitted for shortness of breath. COVID-19 is unlikely. Patient is receiving IV Solu-Medrol, nebulizer treatments. She is also on IV Rocephin 2 g daily. Pulse ox is 97% on 5 L this morning. She also complained of right ankle pain at the time of admission CT of the right ankle indicates 1.5 cm avulsion fracture of the distal fibula and a small evulsion fracture of the medial malleolus. I spoke to Dr. Mo Ulloa he is going to look at the patient today. 05/02/2020-no acute events in the last 24 hours. Pulse oxes 97% on room air. Ortho consult was done for right ankle fracture recommendation is to arrange for the walking boot. Nonweightbearing is recommended. Ortho is planning to see her in the office next week." On day of discharge, echocardiogram reviewed which showed normal systolic function and no acute significant findings. Patient discharged on Bactrim which she confirmed she has taken multiple times in the past without complication. She has tolerated ceftriaxone very well here however. Spoke with her and discussed the discharge with him and he is in agreement. Prednisone for 3 more days at discharge then stop. Continue home inhalers. Follow-up with pulmonology outpatient. Follow-up with orthopedic surgery. Follow-up with PCP. As needed Percocet 5-325 tablets #12 with no refills. (1) Acute on chronic respiratory failureresolved Qualifiers: Respiratory failure complication: hypoxia Qualified Code(s): J96.21 - Acute and chronic respiratory failure with hypoxia Is this a current diagnosis for this admission?: Yes Plan: 04/30/2020-patient is going to be admitted to [facility] as inpatient for acute on chronic respiratory failure. Requiring oxygen supplementation. Started on IV Solu-Medrol 40 mg every 12 hours, incentive spirometry, albuterol nebulizations, Pulmicort nebulizations. GI prophylaxis initiated. Patient is on Arixtra at home for multiple strokes. Started on IV Rocephin 2 g daily. 05/01/[id number]-old female admitted with acute on chronic respiratory failure. On 5 L of oxygen this morning. Plan is to continue IV Solu-Medrol 40 mg every 12 hours, albuterol nebulizations, Pulmicort nebs, incentive spirometry. Patient is also on 2 g of IV Rocephin daily. Blood cultures are negative so far. Plan is to continue the present management at this time. COVID-19 is unlikely. 05/02/[id number]-old female admitted with acute on chronic respiratory failure. Resolving. Pulse ox is 97% on 2 L this morning. Blood cultures are negative so far. Laying flat in bed communicating well. Chest bilateral entry was decreased no wheezing no crepitations present. (2) Bimalleolar avulsion fracture of right ankle Is this a current diagnosis for this admission?: Yes Plan: 04/30/2020-x-ray suggestive of small evulsion fractures of both lateral and medial malleolus of the right ankle. CT of the right ankle is requested. If needed Ortho will be consulted tomorrow. 05/01/2020-Case was discussed with dr Mo Ulloa he is going to look at the patient today. 05/02/2020-consultation with Ortho done. Recommendation is conservative management with walking boot and nonweightbearing. Follow-up with orthopedic surgery outpatient (3) acute COPD exacerbation (chronic obstructive pulmonary disease)resolving Qualifiers: COPD type: unspecified COPD Qualified Code(s): J44.9 - Chronic obstructive pulmonary disease, unspecified Is this a current diagnosis for this admission?: No Plan: 04/30/2020-patient has history of COPD on 2 L of oxygen. Patient is ex-smoker. Quit smoking 20 years ago. Prednisone for 3 additional days at discharge and stop (4) Morbid obesity with BMI of 45.0-49.9, adult Is this a current diagnosis for this admission?: No Plan: 04/30/2020-patient BMI is more than 47. Diet exercise weight loss lifestyle modifications discussed with the patient. (5) Hypertension Qualifiers: Hypertension type: essential hypertension Qualified Code(s): I10 - Essential (primary) hypertension Is this a current diagnosis for this admission?: No Plan: 04/30/2020-patient history of chronic essential hypertension. Blood pressure is 130/69. Patient is on ramipril ramipril 2.5 mg p.o. daily, torsemide 40 mg p.o. daily. Plan is to resume the medication during the hospital stay. 05/01/2020-blood pressure this morning is 123/60. Stable. Plan is to continue the present management at this time. 05/02/2020-blood pressure today is 118/68. Stable. Stable, home meds continued (6) Cerebral vascular disease Is this a current diagnosis for this admission?: No Plan: 04/30/2020-patient has history of multiple strokes. Taking aspirin, atorvastatin, Arixtra at home. Plan is to continue the medications during the hospital stay. (7) CKD (chronic kidney disease) Is this a current diagnosis for this admission?: No Plan: 04/30/2020-patient has history of chronic kidney disease. To continue calcitriol and ergocalciferol during the hospital stay. (8) CHF (congestive heart failure) Is this a current diagnosis for this admission?: No Plan: 04/30/2020-patient is given the history of congestive heart failure. Echocardiogram done in 2018 indicated above EF of more than 70% with normal left ventricular systolic function. Plan is to repeat the echocardiogram this time. 05/02/2020-echocardiogram is pending at this time. Echocardiogram showed EF 65% and no acute findings Physical Exam Vital Signs: Temp Pulse Resp BP Pulse Ox 98.0 F 113 H 16 112/53 L 97 05/03/20 08:17 05/03/20 14:00 05/03/20 09:33 05/03/20 07:49 05/03/20 09:33 Intake & Output 05/02/20 05/03/20 05/04/20 06:59 06:59 06:59 Intake Total 890 1673 260 Output Total 1500 1675 250 Balance -610 -2 10 Weight 134 kg 135.1 kg General appearance: PRESENT: no acute distress, morbidly obese, well-developed, well-nourished Head exam: PRESENT: atraumatic, normocephalic Eye exam: PRESENT: conjunctiva pink. ABSENT: scleral icterus Mouth exam: PRESENT: moist, tongue midline Respiratory exam: PRESENT: clear to auscultation allison. ABSENT: rales, rhonchi, wheezes Cardiovascular exam: PRESENT: RRR. ABSENT: diastolic murmur, rubs, systolic murmur Pulses: PRESENT: normal dorsalis pedis pul Vascular exam: PRESENT: normal capillary refill GI/Abdominal exam: PRESENT: normal bowel sounds, soft. ABSENT: distended, guarding, mass, organolmegaly, rebound, tenderness Rectal exam: PRESENT: deferred Extremities exam: PRESENT: tenderness - Mild to moderate at right Ankle Neurological exam: PRESENT: alert, awake, oriented to person, oriented to place, oriented to time, oriented to situation Psychiatric exam: PRESENT: appropriate affect, normal mood Skin exam: PRESENT: dry, intact, warm Results Laboratory Results: WBC 8.4 10^3/uL (4.0-10.5) 05/03/20 05:28 RBC 3.25 10^6/uL (3.72-5.28) L 05/03/20 05:28 Hgb 10.2 g/dL (12.0-15.5) L 05/03/20 05:28 Hct 29.8 % (36.0-47.0) L 05/03/20 05:28 MCV 92 fl (80-97) 05/03/20 05:28 MCH 31.2 pg (27.0-33.4) 05/03/20 05:28 MCHC 34.1 g/dL (32.0-36.0) 05/03/20 05:28 RDW 14.3 % (11.5-14.0) H 05/03/20 05:28 Plt Count 232 10^3/uL (150-450) 05/03/20 05:28 Lymph % (Auto) 25.6 % (13-45) 05/03/20 05:28 Garza % (Auto) 6.9 % (3-13) 05/03/20 05:28 Eos % (Auto) 1.5 % (0-6) 05/03/20 05:28 Baso % (Auto) 0.4 % (0-2) 05/03/20 05:28 Absolute Neuts (auto) 5.5 10^3/uL (1.7-8.2) 05/03/20 05:28 Absolute Lymphs (auto) 2.1 10^3/uL (0.5-4.7) 05/03/20 05:28 Absolute Monos (auto) 0.6 10^3/uL (0.1-1.4) 05/03/20 05:28 Absolute Eos (auto) 0.1 10^3/uL (0.0-0.6) 05/03/20 05:28 Absolute Basos (auto) 0.0 10^3/uL (0.0-0.2) 05/03/20 05:28 Seg Neutrophils % 65.6 % (42-78) 05/03/20 05:28 Carbonic Acid 1.38 mmol/L (1.05-1.35) H 04/30/20 15:00 HCO3/H2CO3 Ratio 21:1 04/30/20 15:00 ABG pH 7.44 (7.35-7.45) 04/30/20 15:00 ABG pCO2 45.9 mmHg (35-45) H 04/30/20 15:00 ABG pO2 186.5 mmHg (80-100) H 04/30/20 15:00 ABG HCO3 30.1 mmol/L (20-24) H 04/30/20 15:00 ABG Total CO2 31.5 mmol/L (21-25) H 04/30/20 15:00 ABG O2 Saturation 99.3 % (94-98) H 10/10/20 15:00 ABG Base Excess 5.2 mmol/L 04/30/20 15:00 FiO2 4L 04/30/20 15:00 Sodium 135.1 mmol/L (137-145) L 05/03/20 05:28 Potassium 4.1 mmol/L (3.6-5.0) 05/03/20 05:28 Chloride 97 mmol/L (98-107) L 05/03/20 05:28 Carbon Dioxide 29 mmol/L (22-30) 05/03/20 05:28 Anion Gap 9 (5-19) 05/03/20 05:28 BUN 40 mg/dL (7-20) H 05/03/20 05:28 Creatinine 1.51 mg/dL (0.52-1.25) H 05/03/20 05:28 Est GFR ( Amer) 42 (>60) L 05/03/20 05:28 Est GFR (MDRD) Non-Af 34 (>60) L 05/03/20 05:28 Glucose 94 mg/dL (75-110) 05/03/20 05:28 Hemoglobin A1c % 5.3 % (4.7-6.0) 05/01/20 07:20 Calcium 9.0 mg/dL (8.4-10.2) 05/03/20 05:28 Magnesium 2.1 mg/dL (1.6-2.3) 05/03/20 05:28 Total Bilirubin 0.4 mg/dL (0.2-1.3) 05/03/20 05:28 Direct Bilirubin 0.4 mg/dL (0.0-0.4) 05/03/20 05:28 Neonat Total Bilirubin Not Reportable 05/03/20 05:28 Neonat Direct Bilirubin Not Reportable 05/03/20 05:28 Neonat Indirect Bili Not Reportable 05/03/20 05:28 AST 18 U/L (14-36) 05/03/20 05:28 ALT 14 U/L (<35) 05/03/20 05:28 Alkaline Phosphatase 106 U/L (38-126) 05/03/20 05:28 Troponin I < 0.012 ng/mL 05/01/20 07:20 NT-Pro-B Natriuret Pep 230 pg/mL (<125) H 05/01/20 07:20 Total Protein 6.1 g/dL (6.3-8.2) L 05/03/20 05:28 Albumin 3.4 g/dL (3.5-5.0) L 05/03/20 05:28 Triglycerides 68 mg/dL (<150) 05/01/20 07:20 Cholesterol 168.60 mg/dL (0-200) 05/01/20 07:20 LDL Cholesterol Direct 66 mg/dL (<100) 05/01/20 07:20 VLDL Cholesterol 14.0 mg/dL (10-31) 05/01/20 07:20 HDL Cholesterol 64 mg/dL (>40) 05/01/20 07:20 Lipase 32.8 U/L (23-300) 05/01/20 07: TSH 3.05 uIU/mL (0.47-4.68) 05/01/20 07:20 Urine Color YELLOW 04/30/20 15:30 Urine Appearance TURBID 04/30/20 15:30 Urine pH 6.0 (5.0-9.0) 04/30/20 15:30 Ur Specific Bethany 1.009 04/30/20 15:30 Urine Protein 30 mg/dL (NEGATIVE) H 04/30/20 15:30 Urine Glucose (UA) NEGATIVE mg/dL (NEGATIVE) 04/30/20 15:30 Urine Ketones NEGATIVE mg/dL (NEGATIVE) 04/30/20 15:30 Urine Blood SMALL (NEGATIVE) H 04/30/20 15:30 Urine Nitrite NEGATIVE (NEGATIVE) 04/30/20 15:30 Urine Bilirubin NEGATIVE (NEGATIVE) 04/30/20 15:30 Urine Urobilinogen NEGATIVE mg/dL (<2.0) 04/30/20 15:30 Ur Leukocyte Esterase LARGE (NEGATIVE) H 04/30/20 15:30 Urine WBC (Auto) >182 /HPF 04/30/20 15:30 Urine RBC (Auto) 15 /HPF 04/30/20 15:30 U Hyaline Cast (Auto) 17 /LPF 04/30/20 15:30 Urine Bacteria (Auto) 1+ /HPF 04/30/20 15:30 Urine WBC Clumps MANY /HPF 04/30/20 15:30 Squamous Epi Cells Auto 37 /HPF 04/30/20 15:30 U Non-Squamous Epis Auto 8 /HPF 04/30/20 15:30 Amorphous Sediment Auto TRACE /HPF 04/30/20 15:30 Urine Mucus (Auto) RARE /LPF 04/30/20 15:30 Urine Ascorbic Acid 20 (NEGATIVE) H 04/30/20 15:30 04/30/20 04/30/20 04/30/20 12:20 12:20 18:19 Troponin I < 0.012 < 0.012 NT-Pro-B Natriuret Pep 187 H 04/30/20 05/01/20 21:35 07:20 Troponin I < 0.012 < 0.012 NT-Pro-B Natriuret Pep 230 H Impressions: Lower Extremity CT 04/30/20 00:00 IMPRESSION: There is a 1.5 cm avulsion fracture of the posterior distal fibula with fracture line extending to the ankle mortise, no significant displacement. The ankle mortise is intact. There is a 4 mm inferior avulsion from the medial malleolus. No other fractures identified. Chest X-Ray 04/30/20 11:47 IMPRESSION: Similar scattered interstitial changes. No consolidation or pleur al effusion. Ankle X-Ray 04/30/20 13:12 IMPRESSION: 9 mm avulsion from the inferior aspect of the lateral malleolus. 4 mm avulsion from the inferior aspect of the medial malleolus. Plan Plan of Treatment: Follow-up with PCP Follow-up with pulmonology Follow-up with orthopedic surgery Follow-up with nephrology Time Spent: Greater than 30 Minutes Stroke Is this a Stroke Patient?: No Acute Heart Failure Is this a Heart Failure Patient?: No
[2020-05-03 15:50] VITALS: BP 147/66
[2020-05-04] MEDS ORDERED: CALCITRIOL 0.25 MCG CAPSULE PO SCH (10:00)
== END 2020-05-03 16:42 | disposition home or self-care (01) | DRG 189 ==
LOC: ER 11:44 → EH 16:11 → 3W 20:20
PROVIDERS: ADMIT Internal Medicine; ATTEND Internal Medicine
PROC: B24BZZZ Ultrasonography of Heart with Aorta (ICD-10-PCS; principal; 2020-05-02)
DX: J96.21 Acute and chronic respiratory failure with hypoxia (principal); J44.1 Chronic obstructive pulmonary disease with (acute) exacerbation; Z68.42 Body mass index [BMI] 45.0-49.9, adult; S82.841A Displaced bimalleolar fracture of right lower leg, initial encounter for closed fracture; E66.01 Morbid (severe) obesity due to excess calories; E03.9 Hypothyroidism, unspecified; N18.9 Chronic kidney disease, unspecified; I12.9 Hypertensive chronic kidney disease with stage 1 through stage 4 chronic kidney disease, or unspecified chronic kidney disease; E78.00 Pure hypercholesterolemia, unspecified; L89.300 Pressure ulcer of unspecified buttock, unstageable; F32.9 Major depressive disorder, single episode, unspecified; Z23 Encounter for immunization; Z79.891 Long term (current) use of opiate analgesic; Z86.73 Personal history of transient ischemic attack (TIA), and cerebral infarction without residual deficits; Z87.891 Personal history of nicotine dependence; Z99.81 Dependence on supplemental oxygen; Z88.6 Allergy status to analgesic agent; Z88.1 Allergy status to other antibiotic agents; Z88.3 Allergy status to other anti-infective agents; Z88.8 Allergy status to other drugs, medicaments and biological substances; Z82.49 Family history of ischemic heart disease and other diseases of the circulatory system
CPT/HCPCS: 36415; 71045; 80053; 80061; 81001; 82803; 83036; 83690; 83735; 83880; 84443; 84484; 85025; 93005; 93010; 93306; 94640; 94799; 99285; J0696; J1652; J2405; J2920; J3490

== ENCOUNTER → 2020-05-14 | Outpatient (CLI) | payer MEDICARE, OTHER ==
[2020-05-14 12:43] LABS: ABSOLUTE EOSINOPHILS # (AUTO) 0.3 10^3/uL (0.0-0.6); ABSOLUTE LYMPHOCYTES (AUTO) 1.1 10^3/uL (0.5-4.7); ABSOLUTE MONOCYTES (AUTO) 0.4 10^3/uL (0.1-1.4); ABSOLUTE NEUT (AUTO) 3.5 10^3/uL (1.7-8.2); BASOPHILS % (AUTO) 0.8 % (0-2); EOSINOPHILS % (AUTO) 5.8 % (0-6); HEMATOCRIT 31.9 % (36.0-47.0); HEMOGLOBIN 10.8 g/dL (12.0-15.5); LYMPHOCYTES % (AUTO) 19.9 % (13-45); MEAN CORPUSCULAR HEMOGLOBIN 31.3 pg (27.0-33.4); MEAN CORPUSCULAR VOLUME 92 fl (80-97); PLATELET COUNT 215 10^3/uL (150-450); RED BLOOD COUNT 3.46 10^6/uL (3.72-5.28); RED CELL DISTRIBUTION WIDTH 14.7 % (11.5-14.0); SEGMENTED NEUTROPHILS % (AUTO) 65.5 % (42-78); TOTAL CELLS COUNTED % (AUTO) 100 %; WHITE BLOOD COUNT 5.3 10^3/uL (4.0-10.5)
[2020-05-14 13:03] LABS: ALBUMIN 3.7 g/dL (3.5-5.0); ANION GAP 9 (5-19); BLOOD UREA NITROGEN 36 mg/dL (7-20); CALCIUM 9.5 mg/dL (8.4-10.2); CARBON DIOXIDE 29 mmol/L (22-30); CHLORIDE 101 mmol/L (98-107); GLUCOSE 101 mg/dL (75-110); PHOSPHORUS 3.9 mg/dL (2.5-4.5); POTASSIUM 4.7 mmol/L (3.6-5.0)
[2020-05-16 11:32] LABS: APPEARANCE,URINE CLEAR; BILIRUBIN,URINE NEGATIVE (NEGATIVE); COLOR,URINE STRAW; GLUCOSE, URINE NEGATIVE (NEGATIVE); KETONES,URINE NEGATIVE (NEGATIVE); LEUKOCYTE ESTERASE,URINE TRACE (NEGATIVE); NITRITE,URINE NEGATIVE (NEGATIVE); PROTEIN,URINE NEGATIVE (NEGATIVE); URINE SPECIFIC GRAVITY 1.008; UROBILINOGEN,URINE NEGATIVE mg/dL (<2.0)
[2020-05-16 12:00] LABS: UR PRO/CREAT RATIO RESULT 0.4 mg/mg (0.0-0.2); URINE CREATININE 26.9 mg/dL (15-278); URINE PROTEIN 11.3 mg/dL (<12)
== END ==
LOC: OD 11:54
PROVIDERS: ATTEND Physician Assistant Medical
DX: I13.0 Hypertensive heart and chronic kidney disease with heart failure and stage 1 through stage 4 chronic kidney disease, or unspecified chronic kidney disease (principal); I50.9 Heart failure, unspecified; N18.30 Chronic kidney disease, stage 3 unspecified; R60.9 Edema, unspecified; D64.9 Anemia, unspecified; N25.0 Renal osteodystrophy; E87.6 Hypokalemia
CPT/HCPCS: 36415; 80069; 81001; 82570; 83735; 84156; 85025

== ENCOUNTER 2020-06-03 18:14 | Inpatient (IN) | payer MEDICARE, OTHER ==
[2020-06-03 20:04] LABS: HEMATOCRIT 31.1 % (36.0-47.0); HEMOGLOBIN 10.2 g/dL (12.0-15.5); MEAN CORPUSCULAR HEMOGLOBIN 30.3 pg (27.0-33.4); MEAN CORPUSCULAR HGB CONC 32.7 g/dL (32.0-36.0); MEAN CORPUSCULAR VOLUME 93 fl (80-97); PLATELET COUNT 236 10^3/uL (150-450); RED BLOOD COUNT 3.36 10^6/uL (3.72-5.28); RED CELL DISTRIBUTION WIDTH 15.1 % (11.5-14.0); WHITE BLOOD COUNT 17.1 10^3/uL (4.0-10.5)
[2020-06-03 20:18] LABS: ALBUMIN 3.8 g/dL (3.5-5.0); ALKALINE PHOSPHATASE 103 U/L (38-126); ANION GAP 8 (5-19); ASPARTATE AMINO TRANSFERASE 31 U/L (14-36); BILIRUBIN,DIRECT 0.3 mg/dL (0.0-0.4); BILIRUBIN,TOTAL 0.7 mg/dL (0.2-1.3); BLOOD UREA NITROGEN 40 mg/dL (7-20); CARBON DIOXIDE 32 mmol/L (22-30); CHLORIDE 96 mmol/L (98-107); GLUCOSE 109 mg/dL (75-110); POTASSIUM 4.7 mmol/L (3.6-5.0)
[2020-06-03 20:25] LABS: ABSOLUTE LYMPHOCYTES# (MANUAL) 1.4 10^3/uL (0.5-4.7); ABSOLUTE MONOCYTES # (MANUAL) 0.7 10^3/uL (0.1-1.4); ANISOCYTOSIS SLIGHT; BASOPHILS % (MANUAL) 0 % (0-2); EOSINOPHILS % (MANUAL) 0 % (0-6); LYMPHOCYTES % (MANUAL) 8 % (13-45); MONOCYTES % (MANUAL) 4 % (3-13); SEGMENTED NEUTROPHILS % (MAN) 88 % (42-78); TOTAL CELLS COUNTED 100; TOXIC VACUOLATION PRESENT
[2020-06-03 20:26] LABS: PLATELET COMMENT ADEQUATE
--- NOTE | 2020-06-03 20:49 | RADIOLOGY REPORT (SQ) ---
EXAM DESCRIPTION: CHEST SINGLE VIEW CLINICAL HISTORY: 64 years Female, dyspnea COMPARISON: Portable view of the chest April 30, 2020 FINDINGS: Exam is overpenetrated. Lungs: No obvious consolidation. No definitive pneumothorax or pleural effusion. Mediastinum: Cardiac silhouette is widened but unchanged. Mediastinum is stable. Bones: Osseous structures are unchanged. IMPRESSION: No acute process. No significant interval change.
[2020-06-03] MEDS ORDERED: ACETAMINOPHEN 325 MG TABLET PO ONE (21:00)
--- NOTE | 2020-06-03 21:24 | ER Document Report ---
ED General - General Chief Complaint: Weakness Stated Complaint: WEAKNESS Time Seen by Provider: 06/03/20 20:29 Notes: Patient is a 64-year-old female that comes emergency department by EMS from home (assisted living) for chief complaint of cough, generalized weakness, nausea and intermittent diarrhea, and patient fell at home onto her buttocks and was unable to stand. She denies chest pain, back or buttock pain, focal numbness or weakness that is new, vomiting, abdominal pain. EMS assisted patient completely. Patient was found to have a fever of 100.4 F. Patient has a history of COPD and is on as needed oxygen at home. She also has a history of CVA and left-sided weakness, normally ambulates with a walker along with a transfer chair. She also is a history of obesity, chronic kidney disease, hypertension, chronic lower extremity swelling on diuretics but denying congestive heart failure history. Primary care is Dr. Holbrook, tooth clerk is Dr. Anderson. TRAVEL OUTSIDE OF THE [place] IN LAST 30 DAYS: No - Related Data Allergies/Adverse Reactions: pregabalin [From Lyrica] Allergy (Unknown, Verified 12/08/19 02:35) trazodone HCl [From Desyrel] Allergy (Unknown, Verified 12/08/19 02:35) cefadroxil Allergy (Verified 12/08/19 02:35) Tricyclic Compounds Allergy (Verified 12/08/19 02:35) cephalexin monohydrate [From Keflex] Adverse Reaction (Verified 12/08/19 02:35) nausea, vomiting erythromycin base [Erythromycin Base] Adverse Reaction (Verified 12/08/19 02:35) nausea, vomiting gabapentin Adverse Reaction (Verified 12/08/19 02:35) Nausea guaifenesin [From Entex T] Adverse Reaction (Verified 12/08/19 02:35) Nausea levofloxacin Adverse Reaction (Verified 12/08/19 02:35) pseudoephedrine [From Entex T] Adverse Reaction (Verified 12/08/19 02:35) Nausea sumatriptan Adverse Reaction (Verified 12/08/19 02:35) Home Medications: Cyclobenzapine, Cymbalta, Donepezil, Dexeprin, Lipitor, Xanax, Prozac Past Medical History - General Information source: Patient - Social History Smoking Status: Former Smoker Chew tobacco use (# tins/day): No Frequency of alcohol use: None Drug Abuse: None Lives with: Family Family History: None, Reviewed & Not Pertinent, Arthritis, CAD, COPD, CVA, DM, H yperlipidemia, Hypertension, Malignancy, Thyroid Disfunction, Other - Past Medical History Cardiac Medical History: Reports: Hx Congestive Heart Failure, Hx Hype rcholesterolemia, Hx Hypertension Denies: Hx Atrial Fibrillation, Hx Coronary Artery Disease - HIGH CHOLESTEROL, Hx DVT, Hx Heart Attack, Hx Pulmonary Embolism Pulmonary Medical History: Reports: Hx Asthma, Hx Bronchitis, Hx COPD, Hx Pneumonia - Several admissions within the last 12 months, Hx Respiratory Failure Denies: Hx Tuberculosis Neurological Medical History: Reports: Hx Cerebrovascular Accident - 7 YEARS AGO HAS "MEMORY ISSUES" "STROKE X4, last one 2005, Hx Migraine. Denies: Hx Seizures Endocrine Medical History: Reports: Hx Hypothyroidism. Denies: Hx Diabetes Mellitus Type 1, Hx Diabetes Mellitus Type 2, Hx Hyperthyroidism Renal/ Medical History: Reports: Hx Renal Insufficiency. Denies: Hx End Stage Renal Disease, Hx Peritoneal Dialysis Malignancy Medical History: Reports: Hx Bone Cancer, Hx Brain Cancer, Hx Breast Cancer, Hx Cervical Cancer, Hx Colorectal Cancer, Hx Leukemia, Hx Liver Cancer, Hx Lung Cancer, Hx Lymphoma, Hx Ovarian Cancer, Hx Pancreatic Cancer, Hx Renal (Kidney) Cancer, Hx Skin Cancer GI Medical History: Denies: Hx Cirrhosis, Hx Crohn's Disease, Hx Hepatitis, Hx Ulcerative Colitis Musculoskeletal Medical History: Reports Hx Arthritis, Denies Hx Fibromyalgia, Denies Hx Gout Skin Medical History: Denies Hx Eczema, Denies Hx Psoriasis Psychiatric Medical History: Reports: Hx Depression Traumatic Medical History: Denies: Hx Traumatic Brain Injury Infectious Medical History: Denies: Hx Hepatitis, Hx HIV Past Surgical History: Reports: Hx Dilation and Curettage, Hx Hysterectomy, Hx Orthopedic Surgery - Wrist fracture repair, Hx Tubal Ligation - Immunizations Hx Diphtheria, Pertussis, Tetanus Vaccination: Yes Hx Pneumococcal Vaccination: 07/22/18 Review of Systems - Review of Systems Constitutional: See HPI EENT: No symptoms reported Cardiovascular: No symptoms reported Respiratory: See HPI Gastrointestinal: No symptoms reported Genitourinary: No symptoms reported Female Genitourinary: No symptoms reported Musculoskeletal: No symptoms reported Skin: No symptoms reported Hematologic/Lymphatic: No symptoms reported Neurological/Psychological: No symptoms reported Physical Exam - Vital signs Vitals: Resp Pulse Ox 17 99 06/03/20 18:34 06/03/20 18:34 - Notes Notes: GENERAL: Alert, interacts well. No acute distress. Morbidly obese HEAD: Normocephalic, atraumatic. EYES: Pupils equal, round, and reactive to light. Extraocular movements intact. ENT: Oral mucosa moist, tongue midline. Oropharynx unremarkable. Airway patent. NECK: Full range of motion. Supple. Trachea midline. No lymphadenopathy. LUNGS: Decreased breath sounds bilaterally, expiratory wheezes throughout. No rales or rhonchi. No respiratory distress. Speaks in full sentences. HEART: Regular rate and rhythm. No murmur ABDOMEN: Soft, non-tender. Non-distended. EXTREMITIES: Moves all 4 extremities spontaneously. No edema, normal radial and dorsalis pedis pulses bilaterally. No cyanosis. BACK: no cervical, thoracic, lumbar midline tenderness. No saddle anesthesia, normal distal neurovascular exam. Moves all extremities in full range of motion. NEUROLOGICAL: Alert and oriented x3. Normal speech. Cranial nerves II through XII grossly intact. Strength 5/5 in all extremities. PSYCH: Normal affect, normal mood. SKIN: Cellulitis with erythema, warmth, tenderness noted over the left medial and lateral thigh extending up to the pannus and up along the side. No induration or fluctuance, no open wounds, no draining or bleeding. No streaking away from the area. Otherwise unremarkable. Course - Re-evaluation Re-evalutation: On initial evaluation patient had expiratory wheezes, she was given Solu-Medrol and DuoNeb treatment, after this wheezing did resolve, shortness of breath resolved. Lungs clear after this. Abdomen soft and benign. Patient denies headache, has no nuchal rigidity. She is not tachycardic, hypotensive. Fever resolved with Tylenol. CBC shows leukocytosis of 17,000 with elevation of neutrophils but no bandemia. Chemistry nonspecific. Lactic acid is not elevated. Urinalysis unremarkable. Chest x-ray unremarkable. Blood cultures pending. Reevaluated patient again, on closer inspection she was noted to have cellulitis over the left thigh extending up to the pannus and left side. I suspect this is the infection source. I do not see any evidence of abscess. Patient is also very weak, we were unable to get her up to use the bathroom, we placed a Rodriguez because she was unable to get up. I suspect patient's decompensation is secondary to the infection, because of her weakness, leukocytosis, fever, cellulitis, condition of being unable to ambulate, discussed with Dr. Lopez, will discuss with hospitalist for admission. Patient states appreciation and agreement. 06/04/[address] Tucker, hospitalist, patient accepted to medical floor full admission. - Vital Signs Vital signs: Temp Pulse Resp BP Pulse Ox 97.7 F 100 22 H 134/59 H 100 06/04/20 04:06 06/04/20 04:06 06/04/20 04:06 06/04/20 04:06 06/04/20 03:01 - Laboratory Result Diagrams: 06/03/20 19:50 06/03/20 19:50 Laboratory results interpreted by me: 06/03/20 06/03/20 06/03/20 19:50 19:50 21:25 WBC 17.1 H RBC 3.36 L Hgb 10.2 L Hct 31.1 L RDW 15.1 H Seg Neuts % (Manual) 88 H Lymphocytes % (Manual) 8 L Abs Neuts (Manual) 15.0 H VBG HCO3 Sodium 135.9 L Chloride 96 L Carbon Dioxide 32 H BUN 40 H Creatinine 1.69 H Est GFR ( Amer) 37 L Est GFR (MDRD) Non-Af 30 L Lactic Acid 0.6 L 06/03/20 21:25 WBC RBC Hgb Hct RDW Seg Neuts % (Manual) Lymphocytes % (Manual) Abs Neuts (Manual) VBG HCO3 32.6 H Sodium Chloride Carbon Dioxide BUN Creatinine Est GFR ( Amer) Est GFR (MDRD) Non-Af Lactic Acid - EKG Interpretation by Me Additional EKG results interpreted by me: EKG shows sinus rhythm at a rate of 91, normal axis, QTC 429, no T wave inversions or ST segment changes in consecutive leads Discharge - Discharge Clinical Impression: Unable to ambulate, COPD exacerbation Fever Qualifiers: Fever type: unspecified Qualified Code(s): R50.9 - Fever, unspecified Cellulitis Qualifiers: Site of cellulitis: extremity Site of cellulitis of extremity: lower extremity Laterality: left Qualified Code(s): L03.116 - Cellulitis of left lower limb Condition: Stable Disposition: ADMITTED INPATIENT Admitting Provider: Garrett (Hospitalist) Unit Admitted: Medical Floor
[2020-06-03] MEDS ORDERED: IPRATROPIUM/ALBUTEROL 0.5-2.5 MG/3 ML AMPUL NEB ONE (21:40)
[2020-06-03] MEDS ORDERED: METHYLPREDNISOLONE INJ 125 MG/2 ML SDV IV ONE (21:40)
[2020-06-03] MEDS ORDERED: PROMETHAZINE HCL 25 MG TABLET PO ONE (21:40)
[2020-06-03 21:47] LABS: VENOUS BLOOD BASE EXCESS 4.7 mmol/L; VENOUS BLOOD HCO3 32.6 mmol/L (20-32); VENOUS BLOOD PCO2 62.5 mmHg (35-63); VENOUS BLOOD PH 7.34 (7.30-7.42)
[2020-06-04 00:05] LABS: APPEARANCE,URINE CLEAR; BILIRUBIN,URINE NEGATIVE (NEGATIVE); COLOR,URINE YELLOW; GLUCOSE, URINE NEGATIVE (NEGATIVE); KETONES,URINE NEGATIVE (NEGATIVE); LEUKOCYTE ESTERASE,URINE NEGATIVE (NEGATIVE); NITRITE,URINE NEGATIVE (NEGATIVE); PROTEIN,URINE NEGATIVE (NEGATIVE); URINE SPECIFIC GRAVITY 1.012; UROBILINOGEN,URINE NEGATIVE mg/dL (<2.0)
[2020-06-04] MEDS ORDERED: VANCOMYCIN HCL INJ 1000 MG VIAL IV ONE (01:19)
[2020-06-04] MEDS ORDERED: MORPHINE SULFATE 10 MG/ML INJ IV ONE (01:19)
[2020-06-04] MEDS ORDERED: CEFEPIME 2 GM/D5W RTU 2 GM/50 ML RTUPB IV ONE (01:27)
[2020-06-04] MEDS ORDERED: OXYCODONE HCL IR 5 MG TABLET PO ONE (01:30)
[2020-06-04] MEDS ORDERED: ONDANSETRON HCL INJ/PF 4 MG/2 ML SDV IV PRN (02:55)
[2020-06-04] MEDS ORDERED: ACETAMINOPHEN 325 MG TABLET PO PRN (02:55)
[2020-06-04] MEDS ORDERED: IPRATROPIUM/ALBUTEROL 0.5-2.5 MG/3 ML AMPUL NEB PRN (02:55)
[2020-06-04] MEDS ORDERED: ONDANSETRON 4 MG TAB.RAPDIS PO PRN (02:55)
[2020-06-04] MEDS ORDERED: CYCLOBENZAPRINE HCL 10 MG TABLET PO PRN (03:03)
[2020-06-04] MEDS ORDERED: OXYCODONE-ACETAMINOPHEN 5-325 MG TABLET PO PRN (03:03)
--- NOTE | 2020-06-04 03:14 | PDOC H&P ---
History of Present Illness Admission Date/PCP: 06/04/20 01:39 QUENTIN WORTHINGTON PA-C History of Present Illness: LEATHA ATKINS is a 64 year old female with past medical history significant for DVT on Arixtra, history of CVA with permanent left-sided weakness, HTN, COPD, asthma who presents with 1 week history of fever/chills/wheezing/shortness of breath/diarrhea/left lower extremity redness edema pain. Patient brought to ED and found to have fever up to 100.4, white blood cell count of 17. UA was not infected. Chest x-ray unremarkable for acute findings. Patient was wheezing on exam and given steroids and nebulizer treatments. Left lower extremity obviously inflamed consistent with cellulitis likely also with combined fungal and bacterial superficial infection. No fluctuance to suggest abscess. Started on vancomycin/cefepime. Blood cultures drawn. Patient admitted for COPD exacerbation and sepsis due to left lower extremity cellulitis. Past Medical History Cardiac Medical History: Reports: Congestive Heart Failure, Hyperlipidema, Hypertension Denies: Atrial Fibrillation, Coronary Artery Disease - HIGH CHOLESTEROL, DVT, Myocardial Infarction, Pulmonary Embolism Pulmonary Medical History: Reports: Asthma, Bronchitis, Chronic Obstructive Pulmonary Disease (COPD), Pneumonia - Several admissions within the last 12 months, Respiratory Failure Denies: Tuberculosis Neurological Medical History: Reports: Migraine Denies: Seizures Endocrine Medical History: Reports: Hypothyroidism Denies: Diabetes Mellitus Type 1, Diabetes Mellitus Type 2, Hyperthyroidism Renal/ Medical History: Denies: End Stage Renal Disease Malignancy Medical History: Reports: Bone Cancer, Brain Cancer, Breast Cancer, C ervical Cancer, Colorectal Cancer, Leukemia, Liver Cancer, Lung Cancer, Lymphoma, Ovarian Cancer, Pancreatic Cancer, Renal (Kidney) Cancer, Skin Cancer GI Medical History: Denies: Cirrhosis, Crohn's Disease, Hepatitis, Ulcerative Colitis Musculoskeltal Medical History: Reports: Arthritis Denies: Fibromyalgia, Gout Skin Medical History: Denies: Eczema, Psoriasis Psychiatric Medical History: Reports: Depression Traumatic Medical History: Denies: Traumatic Brain Injury Hematology: Reports: Anemia Denies: Sickle Cell Disease, Bleeding Tendencies Infectious Medical History: Denies: HIV Past Surgical History Past Surgical History: Reports: Hysterectomy, Orthopedic Surgery - Wrist fracture repair, Tubal Ligation Social History Information Source: Patient, Emergency Med Personnel Lives with: Family Smoking Status: Former Smoker Electronic Cigarette use?: No Frequency of Alcohol Use: None Hx Recreational Drug Use: No Drugs: None Hx Prescription Drug Abuse: Yes - Advance Directive Resuscitation Status: Full Code Surrogate healthcare decision maker:: Admitting diagnosis: Left lower extremity cellulitis All aspects of code status discussed with patient/POA including cardioversion, chest compressions, and intubation and the patient/POA indicated they wish to be full code MPOA is designated as: , Isaiah Time spent: Greater than 16 minutes Family History Family History: None, Reviewed & Not Pertinent, Arthritis, CAD, COPD, CVA, DM, Hyperlipidemia, Hypertension, Malignancy, Thyroid Disfunction, Other Parental Family History Reviewed: Yes Children Family History Reviewed: Yes Sibling(s) Family History Reviewed.: Yes Medication/Allergy Home Medications: Alprazolam [Xanax 0.5 mg Tablet] 1 mg PO TIDP PRN 04/09/19 Atorvastatin Calcium [Lipitor 20 mg Tablet] 20 mg PO DAILY 04/09/19 Duloxetine HCl [Cymbalta 30 mg Capsule.dr] 60 mg PO DAILY 04/09/19 Ergocalciferol (Vitamin D2) [Drisdol 50,000 unit (1.25MG) Capsule] 50,000 unit PO Q14D 04/09/19 Eszopiclone [Lunesta] 3 mg PO QHS 04/09/19 Fluoxetine HCl [Prozac 20 mg Capsule] 80 mg PO DAILY 04/09/19 Fluticasone Propionate [Flonase Nasal [place] 50 Mcg/[place] 16 gm] 1 spray NASL DAILY 04/09/19 Fluticasone/Umeclidin/Vilanter [Trelegy 100-62.5-25 Mcg Ellipta 14 Dose/Dpi] 1 puff IH DAILY 04/09/19 Levocetirizine Dihydrochloride [Xyzal] 5 mg PO QHS 04/09/19 Omeprazole 20 mg PO Q6AM 04/09/19 Oxycodone HCl [Oxy-Ir 5 mg Tablet] 15 mg PO Q6HP PRN 04/09/19 Pnv,Calcium 72/Iron/Folic Acid [ Vitamin Plus Low Iron] 1 each PO DAILY 04/09/19 Primidone [Mysoline] 50 mg PO Q8 04/09/19 Ramipril [Altace 2.5 mg Capsule] 2.5 mg PO QHS 04/09/19 Cyclobenzaprine HCl [Flexeril 10 mg Tablet] 10 mg PO BIDP PRN 04/20/19 Allopurinol [Zyloprim 100 mg Tablet] 100 mg PO DAILY 12/08/19 Azelastine HCl 1 spray NASL BID 12/08/19 Calcitriol [Rocaltrol 0.25 mcg Capsule] 0.5 mg PO DAILY 12/08/19 Diphenoxylate HCl/Atropine [Lomotil 2.5-0.025 mg Tablet] 1 tab PO QIDP PRN 12/08/19 Nystatin [Mycostatin Topical Powder 15 gm] 1 applic TP TIDP PRN 12/08/19 Promethazine HCl [Phenergan 25 mg Tablet] 25 mg PO Q8HP PRN 12/08/19 Ropinirole HCl [Requip 0.25 mg Tablet] 0.5 mg PO BID 12/08/19 Torsemide [Demadex 20 mg Tablet] 20 mg PO DAILY 12/08/19 Butorphanol Tartrate 10 mg NS ASDIR PRN 05/01/20 Cyanocobalamin (Vitamin B-12) [Vitamin B-12 1000 mcg Tablet] 1 tab PO DAILY 05/01/20 Guaifenesin [Mucinex Sr 600 mg Tablet.sa] 1,200 mg PO Q12 05/01/20 Levothyroxine Sodium [Levo-T] 250 mcg PO DAILY 05/01/20 Magnesium Oxide [Magnesium] 400 mg PO DAILY 05/01/20 Metolazone [Zaroxolyn 5 mg Tablet] 5 mg PO MOWEFR 05/01/20 Suvorexant [Belsomra] 20 mg PO QHS 05/01/20 Oxycodone HCl/Acetaminophen [Percocet 5-325 mg Tablet] 1 tab PO Q6HP PRN #12 tablet 05/03/20 Prednisone [Deltasone 20 mg Tablet] 40 mg PO DAILY #3 tablet 05/03/20 Sulfamethoxazole/Trimethoprim [Bactrim Ds Tablet] 1 each PO BID #4 tablet 05/03/20 Allergies/Adverse Reactions: pregabalin [From Lyrica] Allergy (Unknown, Verified 12/08/19 02:35) trazodone HCl [From Desyrel] Allergy (Unknown, Verified 12/08/19 02:35) cefadroxil Allergy (Verified 12/08/19 02:35) Tricyclic Compounds Allergy (Verified 12/08/19 02:35) cephalexin monohydrate [From Keflex] Adverse Reaction (Verified 12/08/19 02:35) nausea, vomiting erythromycin base [Erythromycin Base] Adverse Reaction (Verified 12/08/19 02:35) nausea, vomiting gabapentin Adverse Reaction (Verified 12/08/19 02:35) Nausea guaifenesin [From Entex T] Adverse Reaction (Verified 12/08/19 02:35) Nausea levofloxacin Adverse Reaction (Verified 12/08/19 02:35) pseudoephedrine [From Entex T] Adverse Reaction (Verified 12/08/19 02:35) Nausea sumatriptan Adverse Reaction (Verified 12/08/19 02:35) Review of Systems All systems: reviewed and no additional remarkable complaints except as stated - Per HPI otherwise negative Physical Exam Vital Signs: Temp Pulse Resp BP Pulse Ox 97.4 F 13 127/56 H 99 06/04/20 02:50 06/04/20 02:01 06/04/20 02:00 06/04/20 02:01 Intake & Output 06/02/20 06/03/20 06/04/20 06:59 06:59 06:59 Intake Total 50 Balance 50 Weight 135.1 kg Exam: General appearance: PRESENT: no acute distress, chronically ill-appearing elderly white female Head exam: PRESENT: atraumatic, normocephalic Eye exam: PRESENT: conjunctiva pink. ABSENT: scleral icterus Mouth exam: PRESENT: moist Respiratory exam: PRESENT: Scant wheezing otherwise clear Cardiovascular exam: PRESENT: RRR. ABSENT: diastolic murmur, rubs, systolic murmur GI/Abdominal exam: PRESENT: normal bowel sounds, soft. ABSENT: distended, guarding, mass, organolmegaly, rebound, tenderness Neurological exam: PRESENT: alert, awake, oriented to person, oriented to place, oriented to time, oriented to situation Psychiatric exam: PRESENT: appropriate affect, normal mood Skin exam: PRESENT: dry, intact, warm; left lower extremity with significant edema/erythema/tenderness which extends from left pannus down to lateral thigh, no fluctuance Results Laboratory Results: 06/03/20 19:50 06/03/20 19:50 06/03/20 06/03/20 06/03/20 19:50 19:50 21:25 WBC 17.1 H RBC 3.36 L Hgb 10.2 L Hct 31.1 L MCV 93 MCH 30.3 MCHC 32.7 RDW 15.1 H Plt Count 236 Seg Neutrophils % Not Reportable VBG pH VBG pCO2 VBG HCO3 VBG Base Excess Sodium 135.9 L Potassium 4.7 Chloride 96 L Carbon Dioxide 32 H Anion Gap 8 BUN 40 H Creatinine 1.69 H Est GFR ( Amer) 37 L Glucose 109 Lactic Acid 0.6 L Calcium 9.0 Total Bilirubin 0.7 AST 31 Alkaline Phosphatase 103 Total Protein 7.0 Albumin 3.8 Urine Color Urine Appearance Urine pH Ur Specific [place] Urine Protein Urine Glucose (UA) Urine Ketones Urine Blood Urine Nitrite Ur Leukocyte Esterase Urine WBC (Auto) Urine RBC (Auto) 06/03/20 06/03/20 21:25 23:36 WBC RBC Hgb Hct MCV MCH MCHC RDW Plt Count Seg Neutrophils % VBG pH 7.34 VBG pCO2 62.5 VBG HCO3 32.6 H VBG Base Excess 4.7 Sodium Potassium Chloride Carbon Dioxide Anion Gap BUN Creatinine Est GFR ( Amer) Glucose Lactic Acid Calcium Total Bilirubin AST Alkaline Phosphatase Total Protein Albumin Urine Color YELLOW Urine Appearance CLEAR Urine pH 6.0 Ur Specific [place] 1.012 Urine Protein NEGATIVE Urine Glucose (UA) NEGATIVE Urine Ketones NEGATIVE Urine Blood NEGATIVE Urine Nitrite NEGATIVE Ur Leukocyte Esterase NEGATIVE Urine WBC (Auto) 1 Urine RBC (Auto) 0 Impressions: Chest X-Ray 06/03/20 19:47 IMPRESSION: No acute process. No significant interval change. Assessment and Plan - Diagnosis (1) Cellulitis of left lower extremity Is this a current diagnosis for this admission?: Yes Plan: 1 week progressive symptoms with left lower extremity edema erythema, fevers Vancomycin/cefepime Blood cultures Febrile, white blood cell count of 17 Nystatin powder Wound care (2) COPD exacerbation Is this a current diagnosis for this admission?: Yes Plan: -acute COPD exacerbation -Supplemental O2 to maintain sat of 89-94% -duonebs -steroids -abx already given for cellulitis -bronchial hygiene -consider pumonary rehab referral at [place] -no smoking (3) Candidal skin infection Is this a current diagnosis for this admission?: Yes Plan: Nystatin powder (4) Chronic kidney disease, stage 3 Is this a current diagnosis for this admission?: Yes Plan: Appears to be at approximate baseline creatinine Trend BMP (5) Hyperlipidemia Qualifiers: Is this a current diagnosis for this admission?: Yes Plan: Statin (6) Hypertension Qualifiers: Is this a current diagnosis for this admission?: Yes Plan: Stable (7) Polypharmacy Is this a current diagnosis for this admission?: Yes Plan: Watch for sedation given multiple sedating medications and home medicine list (8) Sepsis Qualifiers: Sepsis type: sepsis due to unspecified organism Sepsis acute organ dysfunction status: without acute organ dysfunction Qualified Code(s): A41.9 - Sepsis, unspecified organism Is this a current diagnosis for this admission?: Yes Plan: Due to cellulitis as above Treatment and work-up as above Hold IV fluids due to history of CHF with volume overload - Time Time Spent with patient: 35 or more minutes Medications reviewed and adjusted accordingly: Yes Anticipated Discharge Disposition: Home with Home Health Anticipated Discharge Timeframe: within 72 hours - Inpatient Certification Based on my medical assessment, after consideration of the patient's comorbidities, presenting symptoms, or acuity I expect that the services needed warrant INPATIENT care.: Yes I certify that my determination is in accordance with my understanding of Medicare's requirements for reasonable and necessary INPATIENT services [42 CFR 412.3e].: Yes Medical Necessity: Significant Comorbidiites Make Outpatient Treatment Too Risky, Need Close Monitoring Due to Risk of Patient Decompensation, Need for IV Antibiotics, Risk of Complication if Not Cared For in Hospital, Risk of Diagnosis Which Will Require Inpatient Eval/Care/Monitoring
[2020-06-04] MEDS ORDERED: OXYCODONE HCL IR 5 MG TABLET PO PRN (05:04)
[2020-06-04] MEDS ORDERED: PRIMIDONE 50 MG TABLET ONE (05:56)
[2020-06-04] MEDS: ALPRAZOLAM 0.5 MG TABLET PO PRN ×2 (06:12→14:13)
[2020-06-04] MEDS: PRIMIDONE 50 MG TABLET PO SCH ×3 (06:12→22:00)
[2020-06-04] MEDS: LEVOTHYROXINE SODIUM 0.025 MG TABLET PO SCH (06:12)
[2020-06-04] MEDS: PANTOPRAZOLE SODIUM 20 MG TABLET.DR PO SCH (06:12)
[2020-06-04 07:44] LABS: HEMATOCRIT 27.4 % (36.0-47.0); HEMOGLOBIN 9.1 g/dL (12.0-15.5); MEAN CORPUSCULAR HEMOGLOBIN 30.6 pg (27.0-33.4); MEAN CORPUSCULAR HGB CONC 33.3 g/dL (32.0-36.0); MEAN CORPUSCULAR VOLUME 92 fl (80-97); PLATELET COUNT 214 10^3/uL (150-450); RED BLOOD COUNT 2.97 10^6/uL (3.72-5.28); RED CELL DISTRIBUTION WIDTH 15.2 % (11.5-14.0); WHITE BLOOD COUNT 16.8 10^3/uL (4.0-10.5)
[2020-06-04 07:47] LABS: ANION GAP 10 (5-19); BLOOD UREA NITROGEN 42 mg/dL (7-20); CALCIUM 8.6 mg/dL (8.4-10.2); CARBON DIOXIDE 28 mmol/L (22-30); CHLORIDE 95 mmol/L (98-107); GLUCOSE 147 mg/dL (75-110); POTASSIUM 4.5 mmol/L (3.6-5.0)
[2020-06-04] MEDS ORDERED: FONDAPARINUX SODIUM INJ 2.5 MG/0.5 ML DISP.SYRIN SUBCUT SCH (08:00)
[2020-06-04] MEDS: IPRATROPIUM/ALBUTEROL 0.5-2.5 MG/3 ML AMPUL NEB SCH ×4 (08:34→21:11)
[2020-06-04 08:46] LABS: ABSOLUTE LYMPHOCYTES# (MANUAL) 0.5 10^3/uL (0.5-4.7); ABSOLUTE MONOCYTES # (MANUAL) 0.3 10^3/uL (0.1-1.4); BAND NEUTROPHILS % (MANUAL) 1 % (3-5); BASOPHILS % (MANUAL) 0 % (0-2); EOSINOPHILS % (MANUAL) 0 % (0-6); LYMPHOCYTES % (MANUAL) 3 % (13-45); MONOCYTES % (MANUAL) 2 % (3-13); SEGMENTED NEUTROPHILS % (MAN) 94 % (42-78); TOTAL CELLS COUNTED 100
[2020-06-04 08:47] LABS: ANISOCYTOSIS SLIGHT; BURR CELLS SLIGHT; PLATELET COMMENT ADEQUATE; POIKILOCYTOSIS SLIGHT; POLYCHROMASIA SLIGHT
--- NOTE | 2020-06-04 09:45 | EKG REPORT ---
SEVERITY:- BORDERLINE ECG - SINUS RHYTHM BORDERLINE INFERIOR Q WAVES : Confirmed by: Priscilla Reddy 04-Jun-2020 09:45:17
[2020-06-04] MEDS ORDERED: CEFEPIME 2 GM/D5W RTU 2 GM/50 ML RTUPB IV SCH (10:00)
[2020-06-04] MEDS ORDERED: DULOXETINE HCL 30 MG CAPSULE.DR PO SCH (10:00)
[2020-06-04] MEDS ORDERED: VANCOMYCIN HCL INJ 1000 MG VIAL IV SCH (10:00)
[2020-06-04] MEDS ORDERED: CEFEPIME HCL 2 GM in DEXTROSE 5%-WATER 50 ML IV SCH (11:00)
[2020-06-04] MEDS: DOCUSATE SODIUM 100 MG CAPSULE PO SCH (11:49)
[2020-06-04] MEDS: TORSEMIDE 20 MG TABLET PO SCH (11:50)
[2020-06-04] MEDS: ROPINIROLE HCL 0.25 MG TABLET PO SCH ×2 (11:50→18:24)
[2020-06-04] MEDS: ALLOPURINOL 100 MG TABLET PO SCH (11:50)
[2020-06-04] MEDS: PREDNISONE 20 MG TABLET PO SCH (11:50)
[2020-06-04] MEDS: FLUTICASONE/UMECLIDIN/VILANTER 100-62.5-25 MCG/DOSE IH SCH (11:51)
[2020-06-04] MEDS: NYSTATIN TOPICAL POWDER 15 GM TP SCH ×2 (11:52→18:22)
[2020-06-04] MEDS: FLUTICASONE NASAL SPRAY 50 MCG/SPRY 120 SPRAY/16 GM NASL SCH (11:52)
[2020-06-04] MEDS ORDERED: NYSTATIN TOPICAL POWDER 15 GM TP PRN (12:48)
[2020-06-04] MEDS ORDERED: ERGOCALCIFEROL (VITAMIN D2) 50000 UNIT (1.25 MG) CAPSULE PO SCH (13:00)
[2020-06-04] MEDS: OXYCODONE HCL IR 5 MG TABLET PO PRN ×2 (13:58→19:57)
[2020-06-04] MEDS: FONDAPARINUX SODIUM INJ 2.5 MG/0.5 ML DISP.SYRIN SUBCUT SCH ×2 (13:59→15:11)
[2020-06-04] MEDS ORDERED: BUTORPHANOL TARTRATE NASL SCH (14:00)
[2020-06-04] MEDS ORDERED: (PENDING PHARMACY ID) (Azelastine Hcl [Azelastine Hcl] 1 SPRAY) NASL SCH ×2 (14:00→18:00)
[2020-06-04] MEDS ORDERED: DIPHENOXYLATE HCL/ATROP SULF 2.5-0.025 MG TABLET PO PRN (14:46)
[2020-06-04] MEDS ORDERED: METOLAZONE 5 MG TABLET PO SCH (15:00)
[2020-06-04] MEDS ORDERED: VIT C PO SCH (15:00)
[2020-06-04] MEDS ORDERED: CRANBERRY FRUIT EXTRACT PO SCH (15:00)
[2020-06-04] MEDS ORDERED: (PENDING PHARMACY ID) (Suvorexant [Belsomra] 20 MG) PO SCH ×2 (15:00→22:00)
[2020-06-04] MEDS: ALPRAZOLAM 0.5 MG TABLET PO SCH ×2 (18:21→21:56)
[2020-06-04] MEDS: CHOLECALCIFEROL (D3) 1,000 UNIT (25 MCG) TABLET PO SCH (18:21)
[2020-06-04] MEDS: MAGNESIUM OXIDE 400 MG TABLET PO SCH (18:21)
[2020-06-04] MEDS: DICYCLOMINE HCL 10 MG CAPSULE PO SCH (18:22)
[2020-06-04] MEDS: FONDAPARINUX SODIUM INJ 7.5 MG/0.6 ML DISP.SYRIN SUBCUT SCH (18:23)
[2020-06-04] MEDS: FLUCONAZOLE 100 MG TABLET PO SCH (18:27)
[2020-06-04] MEDS: GUAIFENESIN 600 MG TABLET.SA PO SCH (21:55)
[2020-06-04] MEDS: CEFEPIME HCL 2 GM in DEXTROSE 5%-WATER 50 ML IV SCH (21:56)
[2020-06-04] MEDS: DONEPEZIL HCL 5 MG TABLET PO SCH (21:56)
[2020-06-04] MEDS: ZOLPIDEM TARTRATE 5 MG TABLET PO SCH (21:56)
[2020-06-04] MEDS: ATORVASTATIN CALCIUM 20 MG TABLET PO SCH (21:56)
[2020-06-04] MEDS: RAMIPRIL 2.5 MG CAPSULE PO SCH (22:00)
[2020-06-04] MEDS: CETIRIZINE 5 MG TABLET PO SCH (22:00)
[2020-06-05 04:48] LABS: ABSOLUTE MONOCYTES (AUTO) 0.6 10^3/uL (0.1-1.4); ABSOLUTE NEUT (AUTO) 10.6 10^3/uL (1.7-8.2); BASOPHILS % (AUTO) 0.1 % (0-2); EOSINOPHILS % (AUTO) 0.2 % (0-6); HEMATOCRIT 24.1 % (36.0-47.0); LYMPHOCYTES % (AUTO) 7.9 % (13-45); MEAN CORPUSCULAR HEMOGLOBIN 30.7 pg (27.0-33.4); MEAN CORPUSCULAR HGB CONC 33.3 g/dL (32.0-36.0); MEAN CORPUSCULAR VOLUME 92 fl (80-97); MONOCYTES % (AUTO) 5.3 % (3-13); PLATELET COUNT 187 10^3/uL (150-450); RED BLOOD COUNT 2.61 10^6/uL (3.72-5.28); RED CELL DISTRIBUTION WIDTH 15.2 % (11.5-14.0); SEGMENTED NEUTROPHILS % (AUTO) 86.5 % (42-78); TOTAL CELLS COUNTED % (AUTO) 100 %; WHITE BLOOD COUNT 12.3 10^3/uL (4.0-10.5)
[2020-06-05 05:05] LABS: ANION GAP 10 (5-19); BLOOD UREA NITROGEN 49 mg/dL (7-20); CALCIUM 8.3 mg/dL (8.4-10.2); CARBON DIOXIDE 28 mmol/L (22-30); CHLORIDE 96 mmol/L (98-107); GLUCOSE 156 mg/dL (75-110); PHOSPHORUS 4.3 mg/dL (2.5-4.5); POTASSIUM 4.2 mmol/L (3.6-5.0)
[2020-06-05] MEDS ORDERED: LEVOTHYROXINE SODIUM 250 MCG PO SCH (06:00)
[2020-06-05] MEDS ORDERED: LEVOTHYROXINE SODIUM 0.1 MG TABLET PO SCH (06:00)
[2020-06-05] MEDS ORDERED: LEVOTHYROXINE SODIUM 0.15 MG TABLET PO SCH (06:00)
[2020-06-05] MEDS: LEVOTHYROXINE SODIUM 0.025 MG TABLET PO SCH (06:19)
[2020-06-05] MEDS: OXYCODONE HCL IR 5 MG TABLET PO PRN ×3 (06:19→22:28)
[2020-06-05] MEDS: PANTOPRAZOLE SODIUM 20 MG TABLET.DR PO SCH (06:19)
[2020-06-05] MEDS: PRIMIDONE 50 MG TABLET PO SCH ×3 (06:19→22:25)
[2020-06-05] MEDS ORDERED: METOPROLOL TARTRATE PF/INJ 5 MG/5 ML SDV IV PRN (07:25)
[2020-06-05] MEDS ORDERED: FONDAPARINUX SODIUM INJ 2.5 MG/0.5 ML DISP.SYRIN SUBCUT SCH (08:00)
[2020-06-05] MEDS: FONDAPARINUX SODIUM INJ 7.5 MG/0.6 ML DISP.SYRIN SUBCUT SCH (08:02)
[2020-06-05] MEDS: IPRATROPIUM/ALBUTEROL 0.5-2.5 MG/3 ML AMPUL NEB SCH ×4 (08:51→20:00)
[2020-06-05] MEDS ORDERED: [UNRECOGNIZED DRUG - OTHER] PO SCH (10:00)
[2020-06-05] MEDS ORDERED: VIT C PO SCH (10:00)
[2020-06-05] MEDS ORDERED: FOLIC ACID PO SCH (10:00)
[2020-06-05] MEDS ORDERED: CRANBERRY FRUIT EXTRACT PO SCH (10:00)
[2020-06-05] MEDS ORDERED: IRON PO SCH (10:00)
[2020-06-05] MEDS ORDERED: BUTORPHANOL TARTRATE NS SCH (10:00)
[2020-06-05] MEDS ORDERED: PNV CALCIUM PO SCH (10:00)
[2020-06-05] MEDS ORDERED: CALCITRIOL 0.25 MCG CAPSULE PO SCH (10:00)
[2020-06-05] MEDS: PRENATAL VITAMIN W DHA CAPSULE PO SCH (11:30)
[2020-06-05] MEDS: CHOLECALCIFEROL (D3) 1,000 UNIT (25 MCG) TABLET PO SCH (11:30)
[2020-06-05] MEDS: ALPRAZOLAM 0.5 MG TABLET PO SCH ×4 (11:30→22:24)
[2020-06-05] MEDS: DOCUSATE SODIUM 100 MG CAPSULE PO SCH (11:30)
[2020-06-05] MEDS: CYANOCOBALAMIN (VITAMIN B-12) 1,000 MCG TABLET PO SCH (11:31)
[2020-06-05] MEDS: GUAIFENESIN 600 MG TABLET.SA PO SCH ×2 (11:31→22:25)
[2020-06-05] MEDS: ALLOPURINOL 100 MG TABLET PO SCH (11:31)
[2020-06-05] MEDS: DULOXETINE HCL 30 MG CAPSULE.DR PO SCH (11:31)
[2020-06-05] MEDS: PREDNISONE 20 MG TABLET PO SCH (11:31)
[2020-06-05] MEDS: MAGNESIUM OXIDE 400 MG TABLET PO SCH (11:32)
[2020-06-05] MEDS: FLUTICASONE/UMECLIDIN/VILANTER 100-62.5-25 MCG/DOSE IH SCH (11:32)
[2020-06-05] MEDS: FLUTICASONE NASAL SPRAY 50 MCG/SPRY 120 SPRAY/16 GM NASL SCH (11:32)
[2020-06-05] MEDS: FLUOXETINE HCL 20 MG CAPSULE PO SCH (11:32)
[2020-06-05] MEDS: NYSTATIN TOPICAL POWDER 15 GM TP SCH ×2 (11:33→19:01)
[2020-06-05] MEDS: DICYCLOMINE HCL 10 MG CAPSULE PO SCH ×3 (11:37→18:59)
[2020-06-05] MEDS: ROPINIROLE HCL 0.25 MG TABLET PO SCH ×2 (11:39→18:59)
[2020-06-05] MEDS: TORSEMIDE 20 MG TABLET PO SCH (11:41)
[2020-06-05] MEDS: FLUCONAZOLE 100 MG TABLET PO SCH (11:41)
[2020-06-05] MEDS: PROMETHAZINE HCL 25 MG TABLET PO PRN ×2 (11:47→22:23)
[2020-06-05] MEDS: CEFEPIME HCL 2 GM in DEXTROSE 5%-WATER 50 ML IV SCH ×2 (11:47→22:25)
--- NOTE | 2020-06-05 13:57 | PDOC PROGRESS REPORT ---
Subjective Date:: 06/05/20 Subjective:: LEATHA ATKINS is a 64 year old female with past medical history significant for DVT on Arixtra, history of CVA with permanent left-sided weakness, HTN, COPD, asthma who presents with 1 week history of fever/chills/wheezing/shortness of breath/diarrhea/left lower extremity redness edema pain. Patient brought to ED and found to have fever up to 100.4, white blood cell count of 17. UA was not infected. Chest x-ray unremarkable for acute findings. Patient was wheezing on exam and given steroids and nebulizer treatments. Left lower extremity obviously inflamed consistent with cellulitis likely also with combined fungal and bacterial superficial infection. No fluctuance to suggest abscess. Started on vancomycin/cefepime. Blood cultures drawn. Patient admitted for COPD exacerbation and sepsis due to left lower extremity cellulitis. 06/05/2020. No acute events overnight. Patient reporting mild improvement of her abdominal cellulitis, denies any fever, chills, nausea, vomiting. Reason For Visit: LLE CELLULITIS,SEPSIS,COPD EXACERBATION Physical Exam Vital Signs: Temp Pulse Resp BP Pulse Ox 97.7 F 75 18 124/54 L 97 06/05/20 09:46 06/05/20 12:53 06/05/20 12:53 06/05/20 09:01 06/05/20 12:53 Intake & Output 06/04/20 06/05/20 06/06/20 06:59 06:59 06:59 Intake Total 50 935 Output Total 500 1950 Balance -450 -1015 Weight 135.1 kg 135.1 kg General appearance: PRESENT: no acute distress, morbidly obese, well-developed, well-nourished Head exam: PRESENT: atraumatic, normocephalic Neck exam: ABSENT: carotid bruit, JVD, lymphadenopathy, thyromegaly Respiratory exam: PRESENT: clear to auscultation allison. ABSENT: rales, rhonchi, wheezes GI/Abdominal exam: PRESENT: normal bowel sounds, soft. ABSENT: distended, guarding, mass, organolmegaly, rebound, tenderness Neurological exam: PRESENT: alert, awake, oriented to person, oriented to place, oriented to time, oriented to situation, CN II-XII grossly intact. ABSENT: motor sensory deficit Skin exam: PRESENT: other - Left lateral abdomen erythema, tenderness extending to proximal thigh, right abdominal fold lateral aspect erythema and tenderness, no fluctuance or active discharge. Results Laboratory Results: 06/05/20 03:53 06/05/20 03:53 06/05/20 06/05/20 03:53 03:53 WBC 12.3 H RBC 2.61 L Hgb 8.0 L Hct 24.1 L MCV 92 MCH 30.7 MCHC 33.3 RDW 15.2 H Plt Count 187 Seg Neutrophils % 86.5 H Sodium 134.3 L Potassium 4.2 Chloride 96 L Carbon Dioxide 28 Anion Gap 10 BUN 49 H Creatinine 1.76 H Est GFR ( Amer) 35 L Glucose 156 H Calcium 8.3 L Phosphorus 4.3 Magnesium 2.3 06/03/20 21:40 Blood Blood Culture (PCR) - Final Enterococcus Species Impressions: Chest X-Ray 06/03/20 19:47 IMPRESSION: No acute process. No significant interval change. Assessment and Plan - Diagnosis (1) Cellulitis of left lower extremity Is this a current diagnosis for this admission?: Yes Plan: Improving, moderate erythema and tenderness, no fluctuance. Presented with 1 week progressive symptoms with left lower extremity edema erythema, fevers and leukocytosis. Day 2 IV antibiotics. Day 2 IV vancomycin. Day 2 IV cefepime. Day 2 p.o. fluconazole. Nystatin powder Continue empiric IV antibiotics and antifungal, wound care. (2) COPD exacerbation Is this a current diagnosis for this admission?: Yes Plan: Improving. SPO2 WNL on 2 L nasal cannula. No significant wheezing on physical examination. Continue supplemental O2 to maintain sat of 89-94%, duonebs, steroids, LABA, LABA, ICS. Abx already given for cellulitis. (3) Candidal skin infection Is this a current diagnosis for this admission?: Yes Plan: Nystatin powder. Fluconazole. Good skin hygiene. (4) Chronic kidney disease, stage 3 Is this a current diagnosis for this admission?: Yes Plan: Appears to be at approximate baseline creatinine, monitor volume status electrolytes, replace electrolytes as needed. Avoid nephrotoxic meds. Outpatient PCP and nephrology follow-up. (5) Hyperlipidemia Qualifiers: Is this a current diagnosis for this admission?: Yes Plan: Diet and lifestyle modification recommended. Continue statins. (6) Polypharmacy Is this a current diagnosis for this admission?: Yes Plan: Watch for sedation given multiple sedating medications and home medicine list (8) Hypothyroidism Is this a current diagnosis for this admission?: Yes Plan: Resume home meds. Outpatient PCP follow-up. TSH on 05/01/2020 WNL. (9) Opiate dependence, continuous Is this a current diagnosis for this admission?: Yes Plan: Opioid dependency due to chronic musculoskeletal pain. Monitor for self treatment, monitor for fall, monitor for aspiration. Outpatient PCP and pain management follow-up. (10) Sepsis Qualifiers: Sepsis type: sepsis due to unspecified organism Sepsis acute organ dysfunction status: without acute organ dysfunction Qualified Code(s): A41.9 - Sepsis, unspecified organism Is this a current diagnosis for this admission?: Yes Plan: Resolved. Afebrile. Cultures negative so far. Likely due to cellulitis as above Treatment and work-up as above Hold IV fluids due to history of CHF with volume overload - Time Time Spent with patient: 35 or more minutes Anticipated Discharge Disposition: Home with Home Health Anticipated Discharge Timeframe: within 48 hours
[2020-06-05] MEDS: CALCITRIOL 0.25 MCG CAPSULE PO SCH (14:09)
[2020-06-05] MEDS ORDERED: VANCOMYCIN HCL 1,000 MG in DEXTROSE 5%-WATER 250 ML IV SCH (18:00)
[2020-06-05] MEDS: ATORVASTATIN CALCIUM 20 MG TABLET PO SCH (22:24)
[2020-06-05] MEDS: DONEPEZIL HCL 5 MG TABLET PO SCH (22:24)
[2020-06-05] MEDS: ZOLPIDEM TARTRATE 5 MG TABLET PO SCH (22:24)
[2020-06-05] MEDS: CETIRIZINE 5 MG TABLET PO SCH (22:24)
[2020-06-05] MEDS: RAMIPRIL 2.5 MG CAPSULE PO SCH (22:25)
[2020-06-06 06:22] LABS: ANION GAP 9 (5-19); BLOOD UREA NITROGEN 46 mg/dL (7-20); CALCIUM 8.6 mg/dL (8.4-10.2); CARBON DIOXIDE 28 mmol/L (22-30); CHLORIDE 96 mmol/L (98-107); GLUCOSE 101 mg/dL (75-110); POTASSIUM 4.1 mmol/L (3.6-5.0)
[2020-06-06 06:51] LABS: ABSOLUTE EOSINOPHILS # (AUTO) 0.1 10^3/uL (0.0-0.6); ABSOLUTE LYMPHOCYTES (AUTO) 1.3 10^3/uL (0.5-4.7); ABSOLUTE MONOCYTES (AUTO) 0.8 10^3/uL (0.1-1.4); ABSOLUTE NEUT (AUTO) 7.2 10^3/uL (1.7-8.2); BASOPHILS % (AUTO) 0.3 % (0-2); EOSINOPHILS % (AUTO) 0.7 % (0-6); HEMATOCRIT 24.6 % (36.0-47.0); HEMOGLOBIN 8.4 g/dL (12.0-15.5); LYMPHOCYTES % (AUTO) 13.8 % (13-45); MEAN CORPUSCULAR HEMOGLOBIN 31.3 pg (27.0-33.4); MEAN CORPUSCULAR HGB CONC 34.1 g/dL (32.0-36.0); MEAN CORPUSCULAR VOLUME 92 fl (80-97); MONOCYTES % (AUTO) 8.6 % (3-13); PLATELET COUNT 201 10^3/uL (150-450); RED BLOOD COUNT 2.68 10^6/uL (3.72-5.28); RED CELL DISTRIBUTION WIDTH 15.1 % (11.5-14.0); SEGMENTED NEUTROPHILS % (AUTO) 76.6 % (42-78); TOTAL CELLS COUNTED % (AUTO) 100 %; WHITE BLOOD COUNT 9.5 10^3/uL (4.0-10.5)
[2020-06-06] MEDS: FONDAPARINUX SODIUM INJ 7.5 MG/0.6 ML DISP.SYRIN SUBCUT SCH (07:29)
[2020-06-06] MEDS: PANTOPRAZOLE SODIUM 20 MG TABLET.DR PO SCH (07:41)
[2020-06-06] MEDS: PRIMIDONE 50 MG TABLET PO SCH (07:41)
[2020-06-06] MEDS ORDERED: LEVOTHYROXINE SODIUM 0.1 MG TABLET PO SCH (08:00)
[2020-06-06] MEDS ORDERED: LEVOTHYROXINE SODIUM 0.05 MG TABLET PO SCH (08:00)
[2020-06-06] MEDS: IPRATROPIUM/ALBUTEROL 0.5-2.5 MG/3 ML AMPUL NEB SCH ×2 (08:01→13:00)
[2020-06-06] MEDS ORDERED: METOLAZONE 5 MG TABLET PO SCH (10:00)
[2020-06-06] MEDS: FLUTICASONE/UMECLIDIN/VILANTER 100-62.5-25 MCG/DOSE IH SCH (10:15)
[2020-06-06] MEDS: CEFEPIME HCL 2 GM in DEXTROSE 5%-WATER 50 ML IV SCH (10:15)
[2020-06-06] MEDS: FLUTICASONE NASAL SPRAY 50 MCG/SPRY 120 SPRAY/16 GM NASL SCH (10:16)
[2020-06-06] MEDS: PRENATAL VITAMIN W DHA CAPSULE PO SCH (10:23)
[2020-06-06] MEDS: DOCUSATE SODIUM 100 MG CAPSULE PO SCH (10:23)
[2020-06-06] MEDS: ALPRAZOLAM 0.5 MG TABLET PO SCH (10:23)
[2020-06-06] MEDS: FLUOXETINE HCL 20 MG CAPSULE PO SCH (10:23)
[2020-06-06] MEDS: DULOXETINE HCL 30 MG CAPSULE.DR PO SCH (10:23)
[2020-06-06] MEDS: MAGNESIUM OXIDE 400 MG TABLET PO SCH (10:23)
[2020-06-06] MEDS: CHOLECALCIFEROL (D3) 1,000 UNIT (25 MCG) TABLET PO SCH (10:23)
[2020-06-06] MEDS: PREDNISONE 20 MG TABLET PO SCH (10:24)
[2020-06-06] MEDS: GUAIFENESIN 600 MG TABLET.SA PO SCH (10:24)
[2020-06-06] MEDS: ALLOPURINOL 100 MG TABLET PO SCH (10:24)
[2020-06-06] MEDS: CALCITRIOL 0.25 MCG CAPSULE PO SCH (10:24)
[2020-06-06] MEDS: CYANOCOBALAMIN (VITAMIN B-12) 1,000 MCG TABLET PO SCH (10:24)
[2020-06-06] MEDS: FLUCONAZOLE 100 MG TABLET PO SCH (10:24)
[2020-06-06] MEDS: DICYCLOMINE HCL 10 MG CAPSULE PO SCH (10:25)
[2020-06-06] MEDS: TORSEMIDE 20 MG TABLET PO SCH (10:25)
[2020-06-06] MEDS: ROPINIROLE HCL 0.25 MG TABLET PO SCH (10:26)
[2020-06-06] MEDS: NYSTATIN TOPICAL POWDER 15 GM TP SCH (10:31)
[2020-06-06] MEDS: OXYCODONE HCL IR 5 MG TABLET PO PRN (10:34)
[2020-06-06 12:22] VITALS: BP 130/60
--- NOTE | 2020-06-12 16:11 | PDOC DISCHARGE SUMMARY ---
Impression - Admit/DC Date/PCP Admission Date/Primary Care Provider: 06/04/20 01:39 QUENTIN WORTHINGTON PA-C Discharge Date: 06/06/20 - Discharge Diagnosis (1) Cellulitis of left lower extremity Is this a current diagnosis for this admission?: Yes (2) COPD exacerbation Is this a current diagnosis for this admission?: Yes (3) Candidal skin infection Is this a current diagnosis for this admission?: Yes (4) Chronic kidney disease, stage 3 Is this a current diagnosis for this admission?: Yes (5) Hyperlipidemia Is this a current diagnosis for this admission?: Yes (6) Polypharmacy Is this a current diagnosis for this admission?: Yes (8) Hypothyroidism Is this a current diagnosis for this admission?: Yes (9) Opiate dependence, continuous Is this a current diagnosis for this admission?: Yes (10) Sepsis Is this a current diagnosis for this admission?: Yes - Additional Information Resuscitation Status: Full Code Referrals: MARK HAILE MD [COMMUNITY BASED STAFF] - 06/06/20 11:10 am (06/06 @ 1107 spoke with office staff which stated they will have to call back with an appt. date/time.) Prescriptions: Doxycycline Monohydrate 100 mg PO BID #14 tablet Fluconazole 200 mg PO DAILY 4 Days #4 tablet Home Medications: Alprazolam [Xanax 0.5 mg Tablet] 1 mg PO TIDP PRN 04/09/19 Atorvastatin Calcium [Lipitor 20 mg Tablet] 20 mg PO DAILY 04/09/19 Duloxetine HCl [Cymbalta 30 mg Capsule.dr] 60 mg PO DAILY 04/09/19 Ergocalciferol (Vitamin D2) [Drisdol 50,000 unit (1.25MG) Capsule] 50,000 unit PO Q14D 04/09/19 Eszopiclone [Lunesta] 3 mg PO QHS 04/09/19 Fluoxetine HCl [Prozac 20 mg Capsule] 80 mg PO DAILY 04/09/19 Fluticasone Propionate [Flonase Nasal [place] 50 Mcg/[place] 16 gm] 1 spray NASL DAILY 04/09/19 Fluticasone/Umeclidin/Vilanter [Trelegy 100-62.5-25 Mcg Ellipta 14 Dose/Dpi] 1 puff IH DAILY 04/09/19 Levocetirizine Dihydrochloride [Xyzal] 5 mg PO QHS 04/09/19 Omeprazole 20 mg PO Q6AM 04/09/19 Oxycodone HCl [Oxy-Ir 5 mg Tablet] 15 mg PO Q6HP PRN 04/09/19 Pnv,Calcium 72/Iron/Folic Acid [ Vitamin Plus Low Iron] 1 each PO DAILY 04/09/19 Primidone [Mysoline] 50 mg PO Q8 04/09/19 Cyclobenzaprine HCl [Flexeril 10 mg Tablet] 10 mg PO BIDP PRN 04/20/19 Allopurinol [Zyloprim 100 mg Tablet] 100 mg PO DAILY 12/08/19 Azelastine HCl 1 spray NASL BID 12/08/19 Calcitriol [Rocaltrol 0.25 mcg Capsule] 0.5 mg PO DAILY 12/08/19 Diphenoxylate HCl/Atropine [Lomotil 2.5-0.025 mg Tablet] 1 tab PO QIDP PRN 12/08/19 Nystatin [Mycostatin Topical Powder 15 gm] 1 applic TP TIDP PRN 12/08/19 Promethazine HCl [Phenergan 25 mg Tablet] 25 mg PO Q8HP PRN 12/08/19 Ropinirole HCl [Requip 0.25 mg Tablet] 0.5 mg PO QHS 12/08/19 Torsemide [Demadex 20 mg Tablet] 20 mg PO DAILY 12/08/19 Butorphanol Tartrate 1 spray NS DAILY 05/01/20 Cyanocobalamin (Vitamin B-12) [Vitamin B-12 1000 mcg Tablet] 1 tab PO DAILY 05/01/20 Guaifenesin [Mucinex Sr 600 mg Tablet.sa] 1,200 mg PO Q12 05/01/20 Levothyroxine Sodium [Levo-T] 250 mcg PO Q6AM 05/01/20 Metolazone [Zaroxolyn 5 mg Tablet] 5 mg PO MOWEFRSA 05/01/20 Suvorexant [Belsomra] 20 mg PO QHS 05/01/20 Cranberry Fruit Extract/Vit C [Azo Cranberry Softgel] 1 each PO DAILY 06/04/20 Dicyclomine HCl [Bentyl 10 mg Capsule] 20 mg PO TID 06/04/20 Donepezil HCl [Aricept 5 mg Tablet] 10 mg PO QHS 06/04/20 Fluconazole 200 mg PO DAILY 4 Days #4 tablet 06/06/20 Doxycycline Monohydrate 100 mg PO BID #14 tablet 06/07/20 History of Present Illiness History of Present Illness: LEATHA ATKINS is a 64 year old female with past medical history significant for DVT on Arixtra, history of CVA with permanent left-sided weakness, HTN, COPD, asthma who presents with 1 week history of fever/chills/wheezing/shortness of breath/diarrhea/left lower extremity redness edema pain. Patient brought to ED and found to have fever up to 100.4, white blood cell count of 17. UA was not infected. Chest x-ray unremarkable for acute findings. Patient was wheezing on exam and given steroids and nebulizer treatments. Left lower extremity obviously inflamed consistent with cellulitis likely also with combined fungal and bacterial superficial infection. No fluctuance to suggest abscess. Started on vancomycin/cefepime. Blood cultures drawn. Patient admitted for COPD exacerbation and sepsis due to left lower extremity cellulitis. Hospital Course Hospital Course: (1) Cellulitis of left lower extremity Moderate improvement. Presented with erythema and tenderness, no fluctuance. Presented with 1 week progressive symptoms with left lower extremity edema erythema, fevers and leukocytosis. Received 3 days of IV antibiotics. Received 3 days of IV vancomycin. Received 3 days of IV cefepime. Discharged on oral doxycycline. Continue empiric IV antibiotics and antifungal, wound care. (2) COPD exacerbation Resolved. SPO2 WNL on 2 L nasal cannula. No significant wheezing on physical examination. Continue supplemental O2 to maintain sat of 89-94%, duonebs, steroids, LABA, LABA, ICS. Abx already given for cellulitis. (3) Candidal skin infection Nystatin powder. Fluconazole. Good skin hygiene. (4) Chronic kidney disease, stage 3 Appears to be at approximate baseline creatinine, monitor volume status electrolytes, replace electrolytes as needed. Avoid nephrotoxic meds. Outpatient PCP and nephrology follow-up. (5) Hyperlipidemia Diet and lifestyle modification recommended. Continue statins. (6) Polypharmacy Watch for sedation given multiple sedating medications and home medicine list (8) Hypothyroidism Resume home meds. Outpatient PCP follow-up. TSH on 05/01/2020 WNL. (9) Opiate dependence, continuous Opioid dependency due to chronic musculoskeletal pain. Monitor for self treatment, monitor for fall, monitor for aspiration. Outpatient PCP and pain management follow-up. (10) Sepsis Resolved. Afebrile. Cultures negative so far. Likely due to cellulitis as above Treatment and work-up as above Hold IV fluids due to history of CHF with volume overload Physical Exam Vital Signs: Temp Pulse Resp BP Pulse Ox 98.7 F 96 17 130/60 H 98 06/06/20 12:00 06/06/20 12:00 06/06/20 12:00 06/06/20 12:00 06/06/20 12:00 General appearance: PRESENT: no acute distress, morbidly obese, well-developed, well-nourished Head exam: PRESENT: atraumatic, normocephalic Respiratory exam: PRESENT: clear to auscultation allison. ABSENT: rales, rhonchi, wheezes Cardiovascular exam: PRESENT: RRR. ABSENT: diastolic murmur, rubs, systolic murmur GI/Abdominal exam: PRESENT: normal bowel sounds, soft. ABSENT: distended, guarding, mass, organolmegaly, rebound, tenderness Neurological exam: PRESENT: alert, awake, oriented to person, oriented to place, oriented to time, oriented to situation, CN II-XII grossly intact. ABSENT: motor sensory deficit Skin exam: PRESENT: dry, intact, warm. ABSENT: cyanosis, rash Results Laboratory Results: WBC 9.5 10^3/uL (4.0-10.5) 06/06/20 04:23 RBC 2.68 10^6/uL (3.72-5.28) L 06/06/20 04:23 Hgb 8.4 g/dL (12.0-15.5) L 06/06/20 04:23 Hct 24.6 % (36.0-47.0) L 06/06/20 04:23 MCV 92 fl (80-97) 06/06/20 04:23 MCH 31.3 pg (27.0-33.4) 06/06/20 04:23 MCHC 34.1 g/dL (32.0-36.0) 06/06/20 04:23 RDW 15.1 % (11.5-14.0) H 06/06/20 04:23 Plt Count 201 10^3/uL (150-450) 06/06/20 04:23 Lymph % (Auto) 13.8 % (13-45) 06/06/20 04:23 Sharkey % (Auto) 8.6 % (3-13) 06/06/20 04:23 Eos % (Auto) 0.7 % (0-6) 06/06/20 04:23 Baso % (Auto) 0.3 % (0-2) 06/06/20 04:23 Absolute Neuts (auto) 7.2 10^3/uL (1.7-8.2) 06/06/20 04:23 Absolute Lymphs (auto) 1.3 10^3/uL (0.5-4.7) 06/06/20 04:23 Absolute Monos (auto) 0.8 10^3/uL (0.1-1.4) 06/06/20 04:23 Absolute Eos (auto) 0.1 10^3/uL (0.0-0.6) 06/06/20 04:23 Absolute Basos (auto) 0.0 10^3/uL (0.0-0.2) 06/06/20 04:23 Total Counted 100 06/04/20 06:08 Seg Neutrophils % 76.6 % (42-78) 06/06/20 04:23 Seg Neuts % (Manual) 94 % (42-78) H 06/04/20 06:08 Band Neutrophils % 1 % (3-5) L 06/04/20 06:08 Lymphocytes % (Manual) 3 % (13-45) L 06/04/20 06:08 Monocytes % (Manual) 2 % (3-13) L 06/04/20 06:08 Eosinophils % (Manual) 0 % (0-6) 06/04/20 06:08 Basophils % (Manual) 0 % (0-2) 06/04/20 06:08 Abs Neuts (Manual) 16.0 10^3/uL (1.7-8.2) H 06/04/20 06:08 Abs Lymphs (Manual) 0.5 10^3/uL (0.5-4.7) 06/04/20 06:08 Abs Monocytes (Manual) 0.3 10^3/uL (0.1-1.4) 06/04/20 06:08 Absolute Eos (Manual) 0.0 10^3/uL (0.0-0.6) 06/04/20 06:08 Abs Basophils (Manual) 0.0 10^3/uL (0.0-0.2) 06/04/20 06:08 Toxic Vacuolation PRESENT 06/03/20 19:50 Platelet Comment ADEQUATE 06/04/20 06:08 Polychromasia SLIGHT 06/04/20 06:08 Poikilocytosis SLIGHT 06/04/20 06:08 Anisocytosis SLIGHT 06/04/20 06:08 Pina Cells SLIGHT 06/04/20 06:08 VBG pH 7.34 (7.30-7.42) 06/03/20 21:25 VBG pCO2 62.5 mmHg (35-63) 06/03/20 21:25 VBG HCO3 32.6 mmol/L (20-32) H 06/03/20 21:25 VBG Base Excess 4.7 mmol/L 06/03/20 21:25 Sodium 133.4 mmol/L (137-145) L 06/06/20 04:23 Potassium 4.1 mmol/L (3.6-5.0) 06/06/20 04:23 Chloride 96 mmol/L (98-107) L 06/06/20 04:23 Carbon Dioxide 28 mmol/L (22-30) 06/06/20 04:23 Anion Gap 9 (5-19) 06/06/20 04:23 BUN 46 mg/dL (7-20) H 06/06/20 04:23 Creatinine 1.50 mg/dL (0.52-1.25) H 06/06/20 04:23 Est GFR ( Amer) 42 (>60) L 06/06/20 04:23 Est GFR (MDRD) Non-Af 35 (>60) L 06/06/20 04:23 Glucose 101 mg/dL (75-110) 06/06/20 04:23 Lactic Acid 0.6 mmol/L (0.7-2.1) L 06/03/20 21:25 Calcium 8.6 mg/dL (8.4-10.2) 06/06/20 04:23 Phosphorus 4.3 mg/dL (2.5-4.5) 06/05/20 03:53 Magnesium 2.1 mg/dL (1.6-2.3) 06/06/20 04:23 Total Bilirubin 0.7 mg/dL (0.2-1.3) 06/03/20 19:50 Direct Bilirubin 0.3 mg/dL (0.0-0.4) 06/03/20 19:50 Neonat Total Bilirubin Not Reportable 06/03/20 19:50 Neonat Direct Bilirubin Not Reportable 06/03/20 19:50 Neonat Indirect Bili Not Reportable 06/03/20 19:50 AST 31 U/L (14-36) 06/03/20 19:50 ALT 17 U/L (<35) 06/03/20 19:50 Alkaline Phosphatase 103 U/L (38-126) 06/03/20 19:50 Total Protein 7.0 g/dL (6.3-8.2) 06/03/20 19:50 Albumin 3.8 g/dL (3.5-5.0) 06/03/20 19:50 Urine Color YELLOW 06/03/20 23:36 Urine Appearance CLEAR 06/03/20 23:36 Urine pH 6.0 (5.0-9.0) 06/03/20 23:36 Ur Specific [place] 1.012 06/03/20 23:36 Urine Protein NEGATIVE mg/dL (NEGATIVE) 06/03/20 23:36 Urine Glucose (UA) NEGATIVE mg/dL (NEGATIVE) 06/03/20 23:36 Urine Ketones NEGATIVE mg/dL (NEGATIVE) 06/03/20 23:36 Urine Blood NEGATIVE (NEGATIVE) 06/03/20 23:36 Urine Nitrite NEGATIVE (NEGATIVE) 06/03/20 23:36 Urine Bilirubin NEGATIVE (NEGATIVE) 06/03/20 23:36 Urine Urobilinogen NEGATIVE mg/dL (<2.0) 06/03/20 23:36 Ur Leukocyte Esterase NEGATIVE (NEGATIVE) 06/03/20 23:36 Urine WBC (Auto) 1 /HPF 06/03/20 23:36 Urine RBC (Auto) 0 /HPF 06/03/20 23:36 U Hyaline Cast (Auto) 12 /LPF 06/03/20 23:36 Squamous Epi Cells Auto <1 /HPF 06/03/20 23:36 Urine Mucus (Auto) RARE /LPF 06/03/20 23:36 Urine Ascorbic Acid NEGATIVE (NEGATIVE) 06/03/20 23:36 Impressions: Chest X-Ray 06/03/20 19:47 IMPRESSION: No acute process. No significant interval change. Stroke Is this a Stroke Patient?: No Acute Heart Failure Is this a Heart Failure Patient?: No
== END 2020-06-06 13:12 | disposition home health service (06) | DRG 603 ==
LOC: ER 18:14 → EH 06-04 01:39 → 4N 06-04 04:06
PROVIDERS: ADMIT Internal Medicine; ATTEND Internal Medicine
DX: L03.116 Cellulitis of left lower limb (principal); J44.1 Chronic obstructive pulmonary disease with (acute) exacerbation; I69.354 Hemiplegia and hemiparesis following cerebral infarction affecting left non-dominant side; B37.2 Candidiasis of skin and nail; I12.9 Hypertensive chronic kidney disease with stage 1 through stage 4 chronic kidney disease, or unspecified chronic kidney disease; N18.30 Chronic kidney disease, stage 3 unspecified; E78.5 Hyperlipidemia, unspecified; Z86.718 Personal history of other venous thrombosis and embolism; Z79.899 Other long term (current) drug therapy; Z82.49 Family history of ischemic heart disease and other diseases of the circulatory system; Z83.3 Family history of diabetes mellitus; Z83.438 Family history of other disorder of lipoprotein metabolism and other lipidemia; Z82.61 Family history of arthritis; Z99.81 Dependence on supplemental oxygen; Z88.8 Allergy status to other drugs, medicaments and biological substances; Z88.1 Allergy status to other antibiotic agents; Z88.3 Allergy status to other anti-infective agents; Z88.6 Allergy status to analgesic agent; Z79.891 Long term (current) use of opiate analgesic
CPT/HCPCS: 36415; 51702; 71045; 80048; 80053; 81001; 82803; 83605; 83735; 84100; 85025; 87040; 87077; 87150; 87186; 93005; 93010; 94640; 96374; 99285; J0692; J1652; J2930; J3370; J3490; J7060; J7512

== ENCOUNTER → 2020-07-05 | Outpatient (CLI) | payer MEDICARE, OTHER ==
[2020-07-05 14:02] LABS: ABSOLUTE BASOPHILS # (AUTO) 0.1 10^3/uL (0.0-0.2); ABSOLUTE EOSINOPHILS # (AUTO) 0.3 10^3/uL (0.0-0.6); ABSOLUTE MONOCYTES (AUTO) 0.8 10^3/uL (0.1-1.4); ABSOLUTE NEUT (AUTO) 6.6 10^3/uL (1.7-8.2); BASOPHILS % (AUTO) 0.8 % (0-2); EOSINOPHILS % (AUTO) 2.6 % (0-6); HEMATOCRIT 33.3 % (36.0-47.0); HEMOGLOBIN 11.3 g/dL (12.0-15.5); MEAN CORPUSCULAR HEMOGLOBIN 31.9 pg (27.0-33.4); MEAN CORPUSCULAR HGB CONC 33.8 g/dL (32.0-36.0); MEAN CORPUSCULAR VOLUME 95 fl (80-97); MONOCYTES % (AUTO) 7.7 % (3-13); PLATELET COUNT 248 10^3/uL (150-450); RED BLOOD COUNT 3.52 10^6/uL (3.72-5.28); SEGMENTED NEUTROPHILS % (AUTO) 67.9 % (42-78); TOTAL CELLS COUNTED % (AUTO) 100 %; WHITE BLOOD COUNT 9.7 10^3/uL (4.0-10.5)
[2020-07-05 14:17] LABS: ALBUMIN 3.6 g/dL (3.5-5.0); ALKALINE PHOSPHATASE 72 U/L (38-126); ANION GAP 8 (5-19); ASPARTATE AMINO TRANSFERASE 27 U/L (14-36); BILIRUBIN,DIRECT 0.3 mg/dL (0.0-0.4); BILIRUBIN,TOTAL 0.5 mg/dL (0.2-1.3); BLOOD UREA NITROGEN 67 mg/dL (7-20); CARBON DIOXIDE 34 mmol/L (22-30); CHLORIDE 98 mmol/L (98-107); GLUCOSE 140 mg/dL (75-110); POTASSIUM 4.1 mmol/L (3.6-5.0); TOTAL PROTEIN 6.7 g/dL (6.3-8.2)
[2020-07-05 14:33] LABS: FREE T4 (FREE THYROXINE) 1.79 ng/dL (0.78-2.19)
[2020-07-05 14:47] LABS: THYROID STIMULATING HORMONE 1.06 uIU/mL (0.47-4.68)
== END ==
LOC: OD 12:51
PROVIDERS: ATTEND Internal Medicine
DX: E03.8 Other specified hypothyroidism (principal); N18.30 Chronic kidney disease, stage 3 unspecified; L03.116 Cellulitis of left lower limb
CPT/HCPCS: 36415; 80053; 84439; 84443; 85025

== ENCOUNTER 2020-07-21 13:56 | Emergency (ER) | payer MEDICARE, OTHER ==
--- NOTE | 2020-07-21 15:11 | ER Document Report ---
ED General - General Chief Complaint: Cough Stated Complaint: SHORTNESS OF BREATH Time Seen by Provider: 07/21/20 15:10 Primary Care Provider: MARK HAILE MD [Primary Care Provider] - Follow up as needed TRAVEL OUTSIDE OF THE [place] IN LAST 30 DAYS: No - HPI Notes: 65-year-old female presents with cough and congestion for the past 7 to 10 days. Patient reports she has a history of COPD, she occasionally uses home oxygen. She states for the past week or so she has had increase in her baseline difficulty breathing, she has been using her nebs, home oxygen and trilogy inhaler without much relief. She reports a cough occasionally productive of a green phlegm. She denies fever, chest pain, abdominal pain, vomiting or diarrhea. She states that she tried to call her PCP yesterday but he was on vacation. She states that she is on fondaparinux daily for anticoagulation. - Related Data Allergies/Adverse Reactions: pregabalin [From Lyrica] Allergy (Unknown, Verified 12/08/19 02:35) trazodone HCl [From Desyrel] Allergy (Unknown, Verified 12/08/19 02:35) cefadroxil Allergy (Verified 12/08/19 02:35) Tricyclic Compounds Allergy (Verified 12/08/19 02:35) cephalexin monohydrate [From Keflex] Adverse Reaction (Verified 12/08/19 02:35) nausea, vomiting erythromycin base [Erythromycin Base] Adverse Reaction (Verified 12/08/19 02:35) nausea, vomiting gabapentin Adverse Reaction (Verified 12/08/19 02:35) Nausea guaifenesin [From Entex T] Adverse Reaction (Verified 12/08/19 02:35) Nausea levofloxacin Adverse Reaction (Verified 12/08/19 02:35) pseudoephedrine [From Entex T] Adverse Reaction (Verified 12/08/19 02:35) Nausea sumatriptan Adverse Reaction (Verified 12/08/19 02:35) Past Medical History - General Information source: Patient - Social History Smoking Status: Unknown if Ever Smoked Frequency of alcohol use: None Family History: None, Reviewed & Not Pertinent, Arthritis, CAD, COPD, CVA, DM, Hyperlipidemia, Hypertension, Malignancy, Thyroid Disfunction, Other - Past Medical History Cardiac Medical History: Reports: Hx Congestive Heart Failure, Hx Hypercholesterolemia, Hx Hypertension Denies: Hx Atrial Fibrillation, Hx Coronary Artery Disease - HIGH CHOLESTEROL, Hx DVT, Hx Heart Attack, Hx Pulmonary Embolism Pulmonary Medical History: Reports: Hx Asthma, Hx Bronchitis, Hx COPD, Hx Pneumonia - Several admissions within the last 12 months, Hx Respiratory Failure Denies: Hx Tuberculosis Neurological Medical History: Reports: Hx Cerebrovascular Accident - 7 YEARS AGO HAS "MEMORY ISSUES" "STROKE X4, last one 2005, Hx Migraine. Denies: Hx Seizures Endocrine Medical History: Reports: Hx Hypothyroidism. Denies: Hx Diabetes Mellitus Type 1, Hx Diabetes Mellitus Type 2, Hx Hyperthyroidism Renal/ Medical History: Reports: Hx Renal Insufficiency. Denies: Hx End Stage Renal Disease, Hx Peritoneal Dialysis Malignancy Medical History: Reports: Hx Bone Cancer, Hx Brain Cancer, Hx Breast Cancer, Hx Cervical Cancer, Hx Colorectal Cancer, Hx Leukemia, Hx Liver Cancer, Hx Lung Cancer, Hx Lymphoma, Hx Ovarian Cancer, Hx Pancreatic Cancer, Hx Renal (Kidney) Cancer, Hx Skin Cancer GI Medical History: Denies: Hx Cirrhosis, Hx Crohn's Disease, Hx Hepatitis, Hx Ulcerative Colitis Musculoskeletal Medical History: Reports Hx Arthritis, Denies Hx Fibromyalgia, Denies Hx Gout Skin Medical History: Denies Hx Eczema, Denies Hx Psoriasis Psychiatric Medical History: Reports: Hx Depression Traumatic Medical History: Denies: Hx Traumatic Brain Injury Infectious Medical History: Denies: Hx Hepatitis, Hx HIV Past Surgical History: Reports: Hx Dilation and Curettage, Hx Hysterectomy, Hx Orthopedic Surgery - Wrist fracture repair, Hx Tubal Ligation - Immunizations Hx Diphtheria, Pertussis, Tetanus Vaccination: Yes Hx Pneumococcal Vaccination: 07/22/18 Review of Systems - Review of Systems Constitutional: denies: Chills, Fever EENT: See HPI Cardiovascular: denies: Chest pain Respiratory: See HPI Gastrointestinal: No symptoms reported Genitourinary: No symptoms reported Female Genitourinary: No symptoms reported Musculoskeletal: No symptoms reported Skin: No symptoms reported Hematologic/Lymphatic: No symptoms reported Neurological/Psychological: No symptoms reported Physical Exam - Vital signs Vitals: Temp Pulse Resp BP Pulse Ox 98.5 F 102 H 19 126/50 H 95 07/21/20 14:14 07/21/20 14:14 07/21/20 14:14 07/21/20 14:14 07/21/20 14:14 - General General appearance: Appears well, Alert In distress: None - HEENT Head: Normocephalic, Atraumatic Extraocular movements intact: Yes Pupils: PERRL - Respiratory Respiratory status: Other - Speaks in full sentences. No: Labored, Tachypnea Breath sounds: Wheezing - Faint end expiratory - Cardiovascular Rhythm: Regular Heart sounds: Normal auscultation - Abdominal Inspection: Obese Tenderness: Nontender - Extremities General lower extremity: No: Edema - Neurological Neuro grossly intact: Yes Cognition: Normal Orientation: AAOx4 - Psychological Associated symptoms: Normal affect - Skin Skin Temperature: Warm Course - Re-evaluation Re-evalutation: 65-year-old female history of COPD with as needed home oxygen here with 7 to 10 days of occasionally productive cough and congestion. On exam she is alert and well-appearing, she is not tachycardic, she was 100% on room air and 100% on her usual 2 L home oxygen when she uses it. She has faint and expiratory wheezings, but does not appear to be in respiratory distress. She is not edematous. She is on chronic anticoagulation therefore low suspicion for PE at this time. Her Covid antigen test with EMS was negative. Suspect that patient is an COPD exacerbation, pneumonia a possibility as well, Covid a possibility as well and she is agreeable to formal testing. Will treat with DuoNeb, doxycycline and prednisone. Check chest x-ray. 07/21/20 16:02 Chest x-ray demonstrates left-sided retrocardiac consolidation, clinically fits with patient's symptoms 07/21/20 17:11 Given her comorbidities, dual antibiotic therapy is indicated for CAP coverage, have prescribed doxycycline and Augmentin, she received first dose of these here today. Will hold on prednisone as there is evidence of infection. Patient updated on results, she reports feeling better, she is has remained stable while in the emergency department. Return precautions given, stable at time of discharge. - Vital Signs Vital signs: Temp Pulse Resp BP Pulse Ox 98.5 F 102 H 19 126/50 H 95 07/21/20 14:14 07/21/20 14:14 07/21/20 14:14 07/21/20 14:14 07/21/20 14:14 - Laboratory Results Critical Laboratory Results Reviewed: No Critical Results - Radiology Results Critical Radiology Results Reviewed: No Critical Results Discharge - Discharge Clinical Impression: CAP (community acquired pneumonia) Qualifiers: Laterality: left Lung location: lower lobe of lung Qualified Code(s): J18.9 - Pneumonia, unspecified organism Disposition: HOME, SELF-CARE Instructions: COVID-19 Guidance for Persons Under Investigation Additional Instructions: Please begin a course of doxycycline and Augmentin. Continue all other home medications as prescribed. Please have very close follow with your primary care doctor. Your Covid results should result in about 2 days. Return to the emergency department for any concerning worsening symptoms. Prescriptions: Amoxicillin/Potassium Clav [Augmentin 875-125 Tablet] 1 tab PO Q12 7 Days #14 tablet Doxycycline Monohydrate 100 mg PO BID 7 Days #14 capsule Referrals: MARK HAILE MD [Primary Care Provider] - Follow up as needed
[2020-07-21] MEDS ORDERED: IPRATROPIUM/ALBUTEROL 0.5-2.5 MG/3 ML AMPUL NEB ONE (15:24)
[2020-07-21] MEDS ORDERED: PREDNISONE 20 MG TABLET PO ONE (15:24)
[2020-07-21] MEDS ORDERED: DOXYCYCLINE HYCLATE 100 MG TABLET PO ONE (15:26)
--- NOTE | 2020-07-21 15:55 | RADIOLOGY REPORT (SQ) ---
EXAM DESCRIPTION: CHEST SINGLE VIEW IMAGES COMPLETED DATE/TIME: 07/21/2020 3:40 pm REASON FOR STUDY: COPD, SOB COMPARISON: 06/03/2020 EXAM PARAMETERS: NUMBER OF VIEWS: One view. TECHNIQUE: Single frontal radiographic view of the chest acquired. RADIATION DOSE: NA LIMITATIONS: None. FINDINGS: LUNGS AND PLEURA: The somewhat ill-defined retrocardiac opacification on the left. The le ft hemidiaphragm is fairly well-defined, however. MEDIASTINUM AND HILAR STRUCTURES: No masses. Contour normal. HEART AND VASCULAR STRUCTURES: Heart normal in size. Normal vasculature. BONES: No acute findings. HARDWARE: None in the chest. OTHER: No other significant finding. IMPRESSION: Cannot exclude left lower lobe pneumonia. TECHNICAL DOCUMENTATION: JOB ID: [id number] 2010 [employer]- All Rights Reserved Reading location - IP/workstation name: [email or web address]
[2020-07-21] MEDS ORDERED: AMOXICILLIN TR/POT CLAVULANATE 875-125 MG TAB PO ONE (16:03)
[2020-07-21] MEDS ORDERED: ONDANSETRON 4 MG TAB.RAPDIS PO ONE (17:30)
[2020-07-21 18:26] VITALS: BP 130/82
== END 2020-07-21 18:21 | disposition home or self-care (01) ==
LOC: ER 13:56
DX: J44.0 Chronic obstructive pulmonary disease with (acute) lower respiratory infection (principal); J18.9 Pneumonia, unspecified organism; Z99.81 Dependence on supplemental oxygen; I10 Essential (primary) hypertension; Z86.73 Personal history of transient ischemic attack (TIA), and cerebral infarction without residual deficits; Z79.51 Long term (current) use of inhaled steroids; Z79.899 Other long term (current) drug therapy; Z79.01 Long term (current) use of anticoagulants; Z88.6 Allergy status to analgesic agent; Z88.8 Allergy status to other drugs, medicaments and biological substances; Z88.1 Allergy status to other antibiotic agents; Z20.828 Contact with and (suspected) exposure to other viral communicable diseases
CPT/HCPCS: 94640; 99284; 71045; U0003; A9270 ×3; J3490; C9803; 87635; J7512; S0119